=== PATIENT | male | born 1935 | race Caucasian/White ===

== ENCOUNTER 2023-02-10 08:42 | Outpatient (OUT) | payer OTHER, SELFPAY ==
--- NOTE | 2023-02-10 08:44 | XR_ITS ---
The [address] [address] Patient Name: TAMMI RICHMOND MRN: [id number] date: 1935 Sex: M Assigned Patient Location: LAB Current Patient Location: LAB Accession/Order Number: [id number] Exam Date: 02/10/2023 08:55 Report Date: 02/10/2023 09:52 At the request of: KIAN URBINA Procedure: XR abdomen 1V EXAM: XR abdomen 1V HISTORY: Kidney Stone N20.0 COMPARISON: None. TECHNIQUE: AP view of the abdomen. FINDINGS: Nonobstructive bowel gas pattern is noted. There are faint punctate calculi over the superior aspect of the left kidney. The osseous structures are intact. XR/XR abdomen 1V IMPRESSION: Nonobstructive bowel gas pattern. Probable left nephrolithiasis. Electronically authenticated by: QUETA DAMON Date: 02/10/2023 09:52
== END 2023-02-10 08:43 | disposition home or self-care (01) ==
LOC: LAB 08:42
PROVIDERS: PCP Internal Medicine; Visit Provider Urology
DX: N20.0 Calculus of kidney (principal)
CPT/HCPCS: 74018

== ENCOUNTER 2023-04-06 07:03 | Day surgery (SDC) | payer OTHER, SELFPAY ==
--- OUTSIDE RECORDS SUMMARY | 2023-04-06 07:06 | XMS_ITS | CCD ---
Author Name Unknown Address [address] [place] [address] Organization [facility] Care Team Providers Care [employer]el [employer] Name Role Phone DONOVAN CASTORENA Unavailable Unavailable NISREEN BEN Unavailable Unavailable Wilder Kya Unavailable Unavailable Unavailable Angel Cotton Unavailable Nabil Scott Unavailable Kaiser Jennings II Referring Unavailable Kaiser Jennings II Attending Unavailable Wilder Kay Primary Care Unavailabl e Wilder Kay Primary Care Unavailbernadine e Kaiser Jennings II Referring Unavailable Kaiser Jennings II Attending Unavailable Angel Cotton Attending Unavailable Angel Cotton Admitting Unavailable Wilder Kay Primary Care Unavailable Dixie Carroll Attending Unavailable Dixie Carroll Admitting Unavailable Wilder Kay Primary Care Unavailable Jose Barber Attending Unavailable Jose Barber Admitting Unavailable Sandor Leon Consulting Unavailable Wilder Kay Primary Care Unavailable Conor Baer Unavailable Wilder Kay Unavailable ASIA ESPINAL Consulting Unavailable FANY Hoang, DR CH Admitting Unavailable FANY ., DR CH Attending Unavailable CECY, DR WADDELL Primary Care Unavailable FANY ., DR CH Consulting Unavailable ENMA, DR HECK Admitting Unavailable CECY, DR WADDELL Primary Care Unavailable ENMA, DR HECK Attending Unavailable ENMA, DR HECK Consulting Unavailable CECY, DR WADDELL Admitting Unavailable CECY, DR WADDELL Attending Unavailable CECY, DR WADDELL Consulting Unavailable CECY, DR WADDELL Primary Care Unavailable CECY, DR WADDELL Admitting Unavailable CECY, DR WADDELL Attending Unavailable CECY, DR WADDELL Consulting Unavailable CECY, DR WADDELL Primary Care Unavailable VOLCANO, DR VANI Gabriel Consulting Unavailable CECY, DR WADDELL Primary Care Unavailable DANIA COMBS Admitting Unavailable DANIA COMBS Attending Unavailable DANIA COMBS Consulting Unavailable [facility], DR MORA Attending Unavailable [facility], DR MORA Consulting Unavailable MIS, DR MORA Admitting Unavailable DR WILDER KAY Primary Care Unavailable ASIA ESPINAL Consulting Unavailable ENMA, DR HECK Consulting Unavailable CECY, DR WADDELL Primary Care Unavailable ENMA, DR HECK Admitting Unavailable ENMA, DR HECK Attending Unavailable Wilder Kay DO Primary Care Provider WILDER KAY Primary Care Physician Jourdan ANDRES Attending Unavailable Jourdan ANDRES Attending Unavailable Medications Current Medications Medication Drug Class(es) Dates Sig (Normalized) Sig (Original) amLODIPine 5 mg oral tablet (5 sources) Dihydropyridine Calcium Channel Cyrus Start: 08-04-2022 take 1 tablet by mouth every twenty-four hours amLODIPine Besylate 5 MG 1 tablet Orally Once a day July, Active Ocuvite (1 source) Vitamin C Start: 01-31-2019 take 1 tablet by mouth once daily Ocuvite tab(s), Oral, Daily, Refill(s) 0 Start Date: 01/31/19 Status: Ordered aspirin 81 mg oral tablet (14 sources) Platelet Aggregation Inhibitor, Nonsteroidal Anti-inflammatory Drug Start: 11-17-2019 take 1 mg by mouth once daily aspirin 81 mg oral tablet mg tab(s), Oral, Daily, Refills(s) 0 Start Date: 11/17/19 Status: [facility] Aspirin Adult Low Dose 81 MG 1 tablet Orally Once a day Active calcium polycarbophil 625 mg oral tablet (3 sources) take 2 tablets by mo [facility] every twenty-four hours Fiber 625 MG 2 tablets as needed Orally ONCE A DAY Active End: 01-26-2023 CALCIUM POLYCARBOPHIL ORAL T zeynep by mouth. As diected 0 01/26/2023 Discontinued (Therapy completed) cephalexin 250 mg oral capsule (4 sources) Cephalosporin Antibacterial Start: 02-16-2023 End: 02-26-2023 take 1 capsule by mouth twice daily Keflex 250 mg Cap 250 mg = 1 cap(s), Oral, BID, X 10 day(s), # 20 cap(s), Refills(s) 0, Pharmacy: [id number], 177, cm, 02/16/23 10:45:00 EST, Height/Length Dosing, 85, kg, 02/16/23 10:45:00 EST, Weight Dosing Start Date: 02/16/23 Stop Date: 02/26/23 Status: Ordered Start: 08-14-2021 take 1 capsule by mo uth twice daily Cephalexin 500 MG Oral Capsule TAKE 1 CAPSULE BY MOUTH TWICE DAILY FOR 7 DAYS Quantity: 14 Refills: 0 Ordered: 14-Aug-2021 DO Start : 14-Aug-2021 Complete docusate sodium 100 mg oral capsule (10 sources) take 1 capsule by mouth every twelve hours Colace 100 MG 1 capsule as needed Orally TWICE A DAY Active ergocalciferol 1.25 mg oral capsule (20 sources) Provitamin D2 Compound Start: 01-16-20 ergocalciferol 50,000 intl units Cap 6 EA, TAKE 1 CAPSULE BY MOUTH EVERY 2 (TWO) weeks, Refills(s) 0 Start Date: 01/15/22 Status: Ordered Start: 02-14-2021 take 1 capsule by mo uth every week Vitamin D (Ergocalciferol) 1.25 MG (70155 UT) Oral Capsule TAKE 1 CAPSULE BY MOUTH EVERY week Quantity: 12 Refills: 0 Ordered: 30-Apr-2021 DO Start : 14-Feb-2021 Complete take 1 capsule by mo uth every other week Ergocalciferol 1.25 MG (94549 UT) 1 capsule Orally Q2 weeks for 90 days Active take 1 capsule by mo uth every week ergocalciferol (Vitamin D-2) 1.25 MG (39224 UT) capsule Take 1 capsule (1,250 mcg) by mouth 1 (one) time per week. 0 Active eye vitamin supplement (Ocuvite Eye Health Formula) capsule (1 source) eye vitamin supp lement (Ocuvite Eye Health Formula) capsule Take by mouth. As directed 0 Active Fiber (8 sources) take 2 tablets by mo uth once daily as needed take 2 tablets by mo uth once daily as needed Fiber 625 MG 2 tablets as needed Orally ONCE A DAY Active 24 hr metoprolol succinate 25 mg extended release oral tablet (5 sources) beta-Adrenergic Cyrus Start: 08-04-2022 take 1 tablet by mouth every twenty-four hours Metoprolol Succinate ER 25 MG 1 tablet Orally Once a day July, Active Vimodi Eye Health Formula - (10 sources) OcCNZZ Eye Health Formula - as directed Orally Active potassium citrate 10 meq extended release oral tablet (10 sources) Start: 04-17-2022 take 1 tablet by mouth every twelve hours Potassium Citrate ER 10 MEQ (1080 MG) 1 tablet with meals Orally Twice a day Apr, Active tamsulosin hydrochloride 0.4 mg oral capsule (19 sources) alpha-Adrenergic Cyrus Start: 05-11-2020 take 1 capsule by mouth once daily Flomax 0.4 mg Cap 0.4 mg = 1 cap(s), Oral, Daily, # 30 cap(s), Refills(s) 11, Pharmacy: [id number], 177, cm, 01/15/22 9:44:00 EDT, Height/Length Dosing, 85.7, kg, 01/15/22 9:44:00 EDT, Weight Dosing Start Date: 02/10/23 Status: Ordered Completed/Discontinued Medications Medication Drug Class(es) Dates Sig (Normalized) Sig (Original) atorvastatin 40 mg oral tablet (20 sources) HMG-CoA Reductase Inhibitor Start: 08-21-2020 take 1 tablet by mouth once daily atorvastatin (Lipitor) 20 mg tablet Take 1 tablet (20 mg) by mouth once daily. 0 08/21/2020 Active Start: 12-01-2019 take 1 tablet by jace once daily Atorvastatin Calcium 40 MG Oral Tablet TAKE 1 TABLET BY MOUTH DAILY Quantity: 30 Refills: 0 Ordered: 07-Jun-2021 DO Start : 09-Nov-2020 Complete take 2 tablets by mo [facility] every twenty-four hours Atorvastatin Calcium 40 MG 2 tablets Oral Once a day Active carbidopa 25 mg / levodopa 100 mg oral tablet (19 sources) Aromatic Amino Acid Decarboxylation Inhibitor, Aromatic Amino Acid Start: 04-10-2020 take 1 tablet by mouth four times daily Carbidopa-Levodopa 25-100 MG Oral Tablet TAKE 1 TABLET BY MOUTH FOUR TIMES DAILY Quantity: 360 Refills: 0 Ordered: 10-Apr-2020 DO Start : 10-Apr-2020 Active Start: 11-17-2019 take 1 tablet by jace four times daily Sinemet 10 mg-100 mg Tab tab(s), Oral, QID, Refill(s) 0 Start Date: 11/17/19 Status: Ordered take 1 tablet by jace four times daily Carbidopa-Levodopa 25-100 MG TAKE 1 TABLET BY MOUTH FOUR TIMES DAILY Oral for 90 Days Active ciprofloxacin 250 mg oral tablet (1 source) Quinolone Antimicrobial Start: 02-16-2023 take 1 tablet by mouth once daily Cipro 250 mg Tab 250 mg = 1 tab(s), Oral, Daily, Take 1 tablet the day before the procedure and 1 tablet after the procedure, # 2 tab(s), Refills(s) 0, Pharmacy: [id number], 177, cm, 02/16/23 10:45:00 EST, Height/Length Dosing, 85, kg, 02/16/23 10:45:00 EST, Weight Dosing Start Date: 02/16/23 Status: Ordered clopidogrel 75 mg oral tablet (2 sources) P2Y12 Platelet Inhibitor Start: 01-05-2020 take 1 tablet by mouth once daily Clopidogrel Bisulfate 75 MG Oral Tablet TAKE 1 TABLET BY MOUTH ONCE DAILY Quantity: 90 Refills: 0 Ordered: 06-May-2020 DO Start : 05-Jan-2020 Active Fiber Laxative TABS (2 sources) Fiber Laxative T ABS USE DIRECTED. Quantity: 0 Refills: 0 Ordered: 09-Apr-2021 DO Active hydroCHLOROthiazide 12.5 mg oral tablet (19 sources) Thiazide Diuretic Start: 04-02-2021 take 1 tablet by mouth once daily hydrochlorothiazide 12.5 mg Tab 90 EA, TAKE 1 TABLET BY MOUTH DAILY, Refills(s) 0 Start Date: 01/15/22 Status: Ordered mirtazapine 7.5 mg oral tablet (3 sources) Start: 08-01-2021 take 1 tablet by mouth once daily at bedtime Mirtazapine 7.5 MG Oral Tablet TAKE 1 TABLET BY MOUTH EVERY NIGHT AT BEDTIME Quantity: 30 Refills: 0 Ordered: 01-Aug-2021 DO Start : 01-Aug-2021 Complete Ocuvite Adult Formula CAPS (2 sources) Ocuvite Adult Fo rmula CAPS TAKE DIRECTED. Quantity: 0 Refills: 0 Ordered: 09-Apr-2021 DO Active polyethylene glycol 3350 256269 mg / potassium chloride 2980 mg / sodium bicarbonate 6720 mg / sodium chloride 5840 mg / sodium sulfate 69734 mg powder for oral solution (2 sources) Osmotic Laxative Start: 12-21-2021 GaviLyte-C 240 GM Oral Solution Reconstituted Quantity: 4000 Refills: 0 Ordered: 21-Dec-2021 DO Start : 21-Dec-2021 Complete potassium bicarbonate 25 meq effervescent oral tablet (9 sources) Start: 02-02-2023 take 1 tablet by mouth twice daily Klor-Con/EF 25 mEq oral tablet, effervescent 25 mEq = 1 tab(s), Oral, BID, # 60 tab(s), Refills(s) 11, Pharmacy: [id number], 177, cm, 01/15/22 9:44:00 EDT, Height/Length Dosing, 85.7, kg, 01/15/22 9:44:00 EDT, Weight Dosing Start Date: 02/02/23 Status: Ordered Start: 04-06-2021 End: 01-26-2023 potassium bicarbonate (Klor- Con/EF) 25 mEq effervescent tablet 1 tablet (25 mEq) twice a day. 0 04/06/2021 01/26/2023 Discontinued (Therapy completed) Problems Active Problems Problem Classification Problem Date Documented Date Episodic/Chronic Abdominal pain (1 source) Abdominal pain 11-17-2019 Episodic Acute cerebrovascular disease (4 sources) Cerebral infarction, unspecified; Translations: [CEREBRAL INFARCTION UNSPECIFIED] Onset: 3 Chronic Biliary tract disease (4 sources) Cholelithiasis without obstruction; Translations: [Calculus of gallbladder without cholecystitis without obstruction] Episodic Calculus of urinary tract (20 sources) Kidney stone; Translations: [Calculus of kidney] Onset: 2 Resolved: 2 Episodic Cardiac dysrhythmias (5 sources) Paroxysmal ventricular tachycardia; Translations: [Paroxysmal ventricular tachycardia] Onset: 2 01-26-2023 Chronic Cardiac dysrhythmias (8 sources) Palpitations; Translations: [Palpitations] Onset: 2 Episodic Chronic kidney disease (20 sources) Chronic kidney disease stage 3; Translations: [Chronic kidney disease, stage 3 (moderate)] Onset: 2 Chronic Coagulation and hemorrhagic disorders (20 sources) Thrombocytopenic disorder; Translations: [Thrombocytopenia, unspecified] Onset: 2 Resolved: 2 Chronic Congestive heart failure; nonhypertensive (10 sources) Chronic systolic heart failure; Translations: [Chronic systolic (congestive) heart failure] Chronic Deficiency and other anemia (15 sources) Anemia of renal disease; Translations: [Anemia in chronic kidney disease] Chronic Deficiency and other anemia (2 sources) Anemia in chronic kidney disease Onset: 2 Resolved: 2 Chronic Deficiency and other anemia (4 sources) Anemia; Translations: [Anemia, unspecified] Episodic Disorders of lipid metabolism (20 sources) Hyperlipidemia; Translations: [Other and unspecified hyperlipidemia] Onset: 2 Resolved: 2 Chronic Essential hypertension (20 sources) Essential hypertension; Translations: [Unspecified essential hypertension] Onset: 2 Chronic Genitourinary symptoms and ill-defined conditions (5 sources) Blood in urine; Translations: [Delay when starting to pass urine] 12-29-2019 Episodic Hyperplasia of prostate (6 sources) Benign prostatic hyperplasia with lower urinary tract symptoms; Translations: [Benign prostatic hyperplasia without lower urinary tract symptoms] Onset: 2 Chronic Hypertension with complications and secondary hypertension (20 sources) Chronic kidney disease due to hypertension; Translations: [Hypertensive chronic kidney disease with stage 1 through stage 4 chronic kidney disease, or unspecified chronic kidney disease] Onset: 2 Resolved: 2 Chronic Intestinal obstruction without hernia (4 sources) Intestinal obstruction; Translations: [Partial intestinal obstruction, unspecified as to cause] Episodic Malaise and fatigue (4 sources) Fatigue; Translations: [Other fatigue] Episodic Mood disorders (4 sources) Mild recurrent major depression; Translations: [Major depressive disorder, recurrent, mild] Chronic Nutritional deficiencies (20 sources) Vitamin D deficiency; Translations: [Vitamin D deficiency, unspecified] Onset: 2 Resolved: 2 Chronic Occlusion or stenosis of precerebral arteries (12 sources) Bilateral stenosis of carotid arteries; Translations: [Occlusion and stenosis of bilateral carotid arteries] Onset: 9 01-26-2023 Chronic Other aftercare (4 sources) Long-term current use of drug therapy; Translations: [Other 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) drug therapy] Episodic Other circulatory disease (4 sources) H/O: cardiovascular disease; Translations: [Personal history of other diseases of the circulatory system] Episodic Other circulatory disease (4 sources) History of cerebrovascular accident without residual deficits; Translations: [Personal history of transient ischemic attack (TIA), and cerebral infarction without residual deficits] Episodic Other ear and sense organ disorders (4 sources) Sensorineural hearing loss, bilateral; Translations: [Sensorineural hearing loss, bilateral] Chronic Other hereditary and degenerative nervous system conditions (4 sources) Mild cognitive disorder ; Translations: [Mild cognitive impairment, so stated] Chronic Other nervous system disorders (15 sources) Chronic pain; Translations: [Other chronic pain] Chronic Other non-traumatic joint disorders (15 sources) Hip pain; Translations: [Pain in left hip] Episodic Other nutritional; endocrine; and metabolic disorders (4 sources) Hypomagnesemia; Translations: [Hypomagnesemia] Chronic Other nutritional; endocrine; and metabolic disorders (2 sources) Overweight in adulthood with body mass index of 25 or more but less than 30; Translations: [Overweight] Episodic Other nutritional; endocrine; and metabolic disorders (4 sources) Hyperuricemia without signs of inflammatory arthritis and tophaceous disease; Translations: [Hyperuricemia without signs of inflammatory arthritis and tophaceous disease] Episodic Other screening for suspected conditions (not mental disorders or infectious disease) (3 sources) Electrocardiogram abnormal; Translations: [Nonspecific abnormal electrocardiogram [ECG] [EKG]] Onset: 3 01-23-2023 Episodic Parkinson`s disease (9 sources) Parkinsonism; 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 Screening and history of mental health and substance abuse codes (2 sources) Ex-smoker; Translations: [Personal history of tobacco use] Episodic Spondylosis; intervertebral disc disorders; other back problems (9 sources) Spondylosis without myelopathy or radiculopathy, lumbar region; Translations: [Cervical spondylosis without myelopathy] Onset: 2 Chronic Spondylosis; intervertebral disc disorders; other back problems (2 sources) Backache; Translations: [Low back pain] 12-01-2019 Episodic Transient cerebral ischemia (9 sources) Transient cerebral ischemia; Translations: [Unspecified transient cerebral ischemia] Onset: 3 01-26-2023 Chronic Unclassified (1 source) Unknown / UNK(Unknown) Onset: 8 Unclassified (1 source) S06.5X9A - Traumatic subdural hemorrhage with loss of consciousness of unspecified duration, initial encounter; Translations: [S06.5X9A - Traumatic subdural hemorrhage with loss of consciousness of unspecified duration, initial encounter] Onset: 2 Unclassified (1 source) R27.0 - Ataxia, unspecified; Translations: [R27.0 - Ataxia, unspecified] Onset: 2 Unclassified (1 source) TRAUM SUBDURAL HEMOR LOC UNKN INIT; Translations: [TRAUM SUBDURAL HEMOR LOC UNKN INIT] Onset: 3 Unclassified (4 sources) Other ventricular tachycardia; Translations: [Other ventricular tachycardia] Unclassified (4 sources) Traumatic subdural hemorrhage with loss of consciousness status unknown, initial encounter; Translations: [Traumatic subdural hemorrhage with loss of consciousness status unknown, initial encounter] Onset: 2 Urinary tract infections (4 sources) Urinary tract infection, site not specified; Translations: [Urinary tract infectious disease] Onset: 2 Episodic Past or Other Problems Problem Classification Problem Date Documented Da te Episodic/Chronic Chronic kidney disease (18 sources) Chronic kidney disease; Translations: [Chronic kidney disease, stage III (moderate)] Onset: 08-02-2021 Resolved: 2021 Deficiency and other anemia (4 sources) Anemia, unspecified; Translations: [ANEMIA UNSPECIFIED] Onset: 10-30-2021 Episodic Intracranial injury (1 source) Traumatic subdural hemorrhage with loss of consciousness of unspecified duration, initial encounter Onset: 07-29-2021 Resolved: 07-29-2021 Episodic Other aftercare (1 source) Other 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) drug therapy; Translations: [OTH WILDLIFE REHABILITATOR CURRENT DRUG THERAPY] Onset: 12-23-2021 Episodic Other aftercare (1 source) moth exterminator (current) use of aspirin; Translations: [MCFP CURRENT USE OF ASPIRIN] Onset: 12-23-2021 Episodic Other gastrointestinal disorders (4 sources) Constipation, unspecified; Translations: [CONSTIPATION UNSPECIFIED] Onset: 12-21-2021 Episodic Unclassified (1 source) Onset: 01-26-2023 01-26-2023 Results Test Name Value Interpretation Reference Range Facility Consent for Procedure/Surger yon 02-20-2023 Consent for Procedure/Surgery [id number] Normal [facility] RAD - MISCon 02-20-2023 [facility] [id number] Normal [facility] Ambulatory Visit Summaryon 1 04-19-2022 Ambulatory Visit Summary TAMMI PATEL :1935 Visit Date:02/16/2023 Ambulatory Visit Instructions Your Diagnosis Recurrent UTI BPH with urinary obstruction Kidney stone Tests Performed Urnls Dip Stick Auto w/o Microscopy POC 22056 Your Care Team Attending Physician - Jourdan ANDRES MD Primary Care Physician - WILDER KAY DO This Is Your Medications List cephalexin (Keflex 250 mg Cap) Contact prescribing physician if questions or concerns aspirin (aspirin 81 mg oral tablet) atorvastatin (atorvastatin 40 mg Tab) carbidopa-levodopa (Sinemet 10 mg-100 mg Tab) ergocalciferol (ergocalciferol 50,000 intl units Cap) hydrochlorothiazide (hydrochlorothiazide 12.5 mg Tab) multivitamin with minerals (Ocuvite) potassium bicarbonate (Klor-Con/EF 25 mEq oral tablet, effervescent) tamsulosin (Flomax 0.4 mg Cap) Procedures Performed ESWL of kidney (02/08/2020), ESWL - Extracorporeal shockwave lithotripsy for renal calculus (12/14/2019), Cystoscopy (11/18/2019), Cystoscope (09/01/2016), Lt. ESWL (01/22/2012), Cystoscopic removal of ureteric stent (10/07/2011), Rt. ESWL (09/11/2011), Appendectomy, Cataract, Cranial, Excision of cataract, Hernia Repair, Knee replacement. Discharge Vitals Heart Rate (Peripheral) 62 Respiratory Rate 16 Blood Pressure 105/60 Height 177 cm Height 70 in Weight 85 kg Weight 187 lb BMI 27.13 What to do next You Need to Schedule the Following Appointments Follow Up with CIARA SALAAZR, BARBIE Burns When: Where: [facility] [address] , [place] [address] [phone] Medications What How Much When Instructions New cephalexin (Keflex 250 mg Cap) 1 Capsules By Mouth 2 times a day Duration: 10 Days Pickup at [facility] Unchanged aspirin (aspirin 81 mg oral tablet) By Mouth Every day Contact prescribing physician if questions or concerns Unchanged atorvastatin (atorvastatin 40 mg Tab) Contact prescribing physician if questions or concerns Unchanged carbidopa-levodopa (Sinemet 10 mg-100 mg Tab) By Mouth 4 times a day Contact prescribing physician if questions or concerns Unchanged ergocalciferol (ergocalciferol 50,000 intl units Cap) 6 EA, TAKE 1 CAPSULE BY MOUTH EVERY 2 (TWO) weeks Contact prescribing physician if questions or concerns Unchanged hydrochlorothiazide (hydrochlorothiazide 12.5 mg Tab) 90 EA, TAKE 1 TABLET BY MOUTH DAILY Contact prescribing physician if questions or concerns Unchanged multivitamin with minerals (Ocuvite) By Mouth Every day Contact prescribing physician if questions or concerns Unchanged potassium bicarbonate (Klor-Con/ EF 25 mEq oral tablet, effervescent) 1 Tablets By Mouth 2 times a day Contact prescribing physician if questions or concerns Unchanged tamsulosin (Flomax 0.4 mg Cap) 1 Capsules By Mouth Every day Contact prescribing physician if questions or concerns Pharmacy Information [facility]: [address] [place], [place] [id number] [phone] Test Results Urnls Dip Stick Auto w/o Microscopy POC 32120 (02/16/2023) Bilirubin Urine Dipstick - Negative Blood Urine Dipstick - Trace-lysed Glucose Urine Dipstick - Negative Ketones Urine Dipstick - Trace - 5 mg/dl Leukocytes Urine Dipstick - 1+ Small Nitrite Urine Dipstick - Positive Protein Urine Dipstick - 1+ (30 mg/dl) Specific [place] Urine Dipstick - 1.025 Urine Appearance Urine Dipstick - Cloudy Urine Color Urine Dipstick - Yellow Urobilinogen Urine Dipstick - Normal 0.2-1 EU/dl pH Urine Dipstick - 6 Allergies No Known Allergies Problems Ongoing - Any problem that you are currently receiving treatment for. Abdominal pain Back pain BPH with urinary obstruction Gross hematuria Hematuria Hesitancy of micturition Hypertension Kidney stone Low back pain Nocturia Recurrent UTI Transient ischemic attack Urgency of urination UTI (urinary tract infection) Patient Survey You may receive a survey via text or e-mail asking about your office visit. Please share your experience with us by completing your survey. We appreciate your feedback and thank you for choosing us for your care. Education Materials Cystoscopy Cystoscopy is a procedure that is used to help diagnose and sometimes treat conditions that affect the lower urinary tract. The lower urinary tract includes the bladder and the urethra. The urethra is the tube that drains urine from the bladder. Cystoscopy is done using a thin, tube-shaped instrument with a light and camera at the end (cystoscope). The cystoscope may be hard or flexible, depending on the goal of the procedure. The cystoscope is inserted through the urethra, into the bladder. Cystoscopy may be recommended if you have: ? Urinary tract infections that keep coming back. ? Blood in the urine (hematuria). ? An inability to control when you urinate (urinary incontinence) or an overactive bladder. ? Unusual cells found in a uri (more content not included)... 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 KUB 02/10/23 Denies pain/burning and visible blood in urine. Does have some intermittent lower back soreness, does not think it is related to kidneys. No concerns at this time. History of Present Illness Tests reviewed: reviewed UA, KUB I have reviewed the previous health record information and history for this patient from JOLLY Valdovinos. I have reviewed and verified the staff HPI to be accurate for this encounter. Review of Systems PHQ Score Initial Depression Screen Score: 0 SCORE ROS - Provider Constitutional: denies weight loss, denies hot flashes. Eyes: denies eye problems. Gastrointestinal: denies nausea, denies vomiting. Cardiovascular: denies chest pain or angina. Integumentary: no dryness Musculoskeletal: denies musculoskeletal symptoms. ENMT: denies otolaryngeal symptoms. Respiratory: no shortness of breath. Heme/Lymph: denies easy bleeding tendency, denies easy bruising tendency. Psychiatric: no confusion, no anxiety. Genitourinary: See HPI. Physical Exam Vitals & Measurements HR: 62(Peripheral) RR: 16 BP: 105/60 HT: 70 in HT: 177 cm WT: 85 kg WT: 187 lb BMI: 27.13 General Appearance: alert, no distress, well nourished, well developed male. Genitourinary: normal scrotum, normal testes, normal urethra, normal epididymis, normal vas deferens/spermatic cord. Flank Pain: none. Bladder: nonpalpable. Assessment/Plan Former Dr. Horowitz pt 1. Recurrent UTI (N39.0: Urinary tract infection, site not specified) UA at prior OV showed large leuks. Had positive cx which was treated with doxycycline 100mg bid x7d. UA today shows trace-lysed blood and small leuks. Denies gross hematuria and odorous urine. Discussed possibility of urinary retention as pt is asx and has a suspicious UA today. Advised pt to take abx empirically and will evaluate etiology of infection with cysto and pvr scan. -Take Keflex 250mg bid [id number]. Rx sent to in [place]. -Will schedule cystoscopy with PVR. The risks and benefits for cystoscopy have been discussed. The risks include bleeding, infection, and irritation of the bladder and urinary channel, among others. The patient, after being informed of procedural details and after questions have been answered, wishes to proceed. Full informed consent has been obtained. Will order Local anesthesia. 2. BPH with urinary obstruction (N40.1: Benign prostatic hyperplasia with lower urinary tract symptoms) S/p Cysto/UroLift 10/21/16. Taking Tamsulosin 0.4mg bid which was increased at prior OV. weak stream. Feels he empties completely. No indication for changes in meds. 3. Kidney stone (N20.0: Calculus of kidney) Hx of multiple lithotripsies. Taking Effer K 25meq bid. KUB 01/10/22 [facility] - L renal stones, no measurements. KUB 02/10/23 [facility] - faint punctate renal stones over the L superior aspect. Discussed imaging results. No indication for intervention at this time. Follow-up With When Contact Information CIARA SALAZAR, Jourdan Anderson, [facility] [address], [place] [address]- [phone] Additional Instructions: sched cysto Patient Education Cystoscopy I, Kaycee Fabian, personally scribed for Dr. Andres on 02/16/2023 11:19:48. . Documentation recorded by the violeta, Kaycee Fabian, accurately reflects the services(s) I performed and decisions made by me. Authenticated by Dr. Andres on 02/16/2023 11:23:26. Problem List/Past Medical History Ongoing Abdominal pain Back pain BPH with urinary obstruction Gross hematuria Hematuria Hesitancy of micturition Hypertension Kidney stone Low back pain Nocturia Recurrent UTI Transient ischemic attack Urgency of urination UTI (urinary tract infection) Historical No qualifying data Procedure/Surgical History ESWL of kidney (02/08/2020), ESWL - Extracorporeal shockwave lithotripsy for renal calculus (12/14/2019), Cystoscopy (11/18/2019), Cystoscope (09/01/2016), Lt. ESWL (01/22/2012), Cystoscopic removal of ureteric stent (10/07/2011), Rt. ESWL (09/11/2011), Appendectomy, Cataract, Cranial, Excision of cataract, Hernia Repair, Knee replacement. Medications aspirin 81 mg oral tablet, Oral, Daily atorvastatin 40 mg Tab ergocalciferol 50,000 intl units Cap Flomax 0.4 mg Cap, 0.4 mg= 1 cap(s), Oral, Daily, 11 refills hydrochlorothiazide 12.5 mg Tab Klor-Con/EF 25 mEq oral tablet, effervescent, 25 mEq= 1 tab(s), Oral, BID, 11 refills Ocuvite, Oral, Daily Sinemet 10 mg-100 mg Tab, Oral, QID Allergies No Known Allergies Social History Alcohol - Denies Alcohol Use, 12/29/2019 Substance Abuse - Denies Substance Abuse, 12/29/2019 Tobacco - Denies Tobacco Use, 12/29/2019 Former smoker, quit more than 30 days ago Tobacco Use:. Never Smokeless Tobacco Use:. Cigarettes, H (more content not included)... Normal [facility] Comment on above: Result Comment: Elec tronically Signed By: Jourdan ANDRES MD\.br\Date and Time Signed: 02/16/23 11:23 EST\.br\Electronically Co-Signed By: Fabian, Kaycee B\.br\Date and Time Co-Signed: 02/16/23 11:20 EST Physician Orderon 01-13-2023 Physician Order [id number] Normal [facility] LIPID PROFILEon 07-16-2022 CHOL-HDL RATIO NORM SEE BELOW Normal [facility] Comment on above: Result Comment: 3.3 - 4.4 LOW RISK 4.4 - 7.1 AVERAGE RISK 7.1 - 11.0 MODERATE RISK >11.0 HIGH RISK Performed By: #### L IPID, AST, BMP #### [facility] [address] [address] [address] Anu Magdaleno Cholesterol [Mass/Vol] 105 mg/dL Normal <=200 [facility] Comment on above: Performed By: #### L IPID, AST, BMP #### [facility] [address] [address] [address] Anu Magdaleno Cholesterol in HDL [Mass/Vol] 47 mg/dL Normal 40-60 [facility] Comment on above: Performed By: #### L IPID, AST, BMP #### [facility] [address] [address] [address] Anu Magdaleno Cholesterol in LDL [Mass/Vol] 46.2 mg/dL Normal [facility] Comment on above: Performed By: #### L IPID, AST, BMP #### [facility] [address] [address] [address] Anu Magdaleno Cholesterol.total/ Cholesterol in HDL [Mass ratio] 2.2 {ratio} Normal [facility] Comment on above: Performed By: #### L IPID, AST, BMP #### [facility] [address] [address] [address] Anu Magdaleno HDL NORMAL > or = 60 mg/dl - LO W CARDIOVASCULAR RISK <40 mg/dl - HIGH CARDIOVASCULAR RISK Normal [facility] Comment on above: Performed By: #### L IPID, AST, BMP #### [facility] [address] [address] [address] Anu Magdaleno LDL CALC NORMAL SEE BELOW Normal [facility] Comment on above: Result Comment: <100 mg/dl OPTIMAL 100 - 129 mg/dl NEAR OR ABOVE OPTIMAL 130 - 159 mg/dl BORDERLINE HIGH 160 - 189 mg/dl HIGH >190 mg/dl VERY HIGH Performed By: #### L IPID, AST, BMP #### [facility] [address] [address] [address] Anu Magdaleno Triglyceride [Mass/Vol] 59 mg/dL Normal <=150 [facility] Comment on above: Performed By: #### L IPID, AST, BMP #### [facility] [address] [address] [address] Anu Magdaleno VLDL CALC 11.8 mg/dL Normal [facility] Comment on above: Performed By: #### L IPID, AST, BMP #### [facility] [address] [address] [address] Anu Magdaleno PROF CHEM 8 (BAS METB)on Anion gap [Moles/Vol] 13.1 mmol/L Normal [facility] Comment on above: Performed By: #### F ERR, FETIBC, VITB12 #### [facility] [address] [address] [address] Anu Magdaleno Calcium [Mass/Vol] 9.2 mg/dL Normal 8.5-10.1 [facility] Comment on above: Performed By: #### F ERR, FETIBC, VITB12 #### [facility] [address] [address] [address] Anu Magdaleno Chloride [Moles/Vol] 102 mmol/L Normal 98-107 [facility] Comment on above: Performed By: #### F ERR, FETIBC, VITB12 #### [facility] [address] [address] [address] Anu Magdaleno CO2 [Moles/Vol] 28.3 mmol/L Normal 21.0-32.0 [facility] Comment on above: Performed By: #### F ERR, FETIBC, VITB12 #### [facility] [address] [address] [address] Anu Magdaleno Creatinine [Mass/Vol] 1.40 mg/dL Critically high 0.70-1.30 [facility] Comment on above: Performed By: #### F ERR, FETIBC, VITB12 #### [facility] [address] [place] [address] Dr. Anu Magdaleno EGFR-AF BRAZILIAN 58 mL/min/1.73m2 Critically low >=60 [facility] Comment on above: Performed By: #### F ERR, FETIBC, VITB12 #### [facility] [address] [place] [address] Dr. Anu Magdaleno EGFR-NON AF BRAZILIAN 48 mL/min/1.73m2 Critically low >=60 [facility] Comment on above: Performed By: #### F ERR, FETIBC, VITB12 #### [facility] [address] [place] [address] Dr. Anu Magdaleno Glucose [Mass/Vol] 124 mg/dL Critically high 74-106 T [facility] Comment on above: Performed By: #### F ERR, FETIBC, VITB12 #### [facility] [address] [place] [address] Dr. Anu Magdaleno Potassium [Moles/Vol] 4.4 mmol/L Normal 3.5-5.1 [facility] Comment on above: Performed By: #### F ERR, FETIBC, VITB12 #### [facility] [address] [place] [address] Dr. Anu Magdaleno Sodium [Moles/Vol] 139 mmol/L Normal 136-145 [facility] Comment on above: Performed By: #### F ERR, FETIBC, VITB12 #### [facility] [address] [place] [address] Dr. Anu Magdaleno Urea nitrogen [Mass/Vol] 20.0 mg/dL Critically high 7.0-18.0 [facility] Comment on above: Performed By: #### F ERR, FETIBC, VITB12 #### [facility] [address] [place] [address] Dr. Anu Magdaleno Urea nitrogen/Creatinin e [Mass ratio] 14.3 mg/mg Normal [facility] Comment on above: Performed By: #### F ERR, FETIBC, VITB12 #### [facility] [address] [place], [place] [address] Dr. Anu Huerta 07-16-2022 AST [Catalytic activity/Vol] 16 U/L Normal 15-37 [facility] Comment on above: Performed By: #### L IPID, AST, BMP #### [facility] [address] [place], [place] [address] HEAD WO CONon 03-26-2022 CT HEAD WO CON EXAMINATION: CT HEAD WO CON HISTORY: Cerebral infarction ; history of subdural hematoma July 2021 COMPARISON: CT head 08/10/2009 TECHNIQUE: Axial CT images were obtained without IV contrast. Dose reduction techniques were achieved by using automated exposure control and/or adjustment of mA and/or kV according to patient size and/or use of iterative reconstruction technique. FINDINGS: BRAIN: Small area of decreased attenuation within the posterior superior aspect of the right parietal lobe, likely sequela of remote infarction. Uniform parenchymal atrophy. Decreased attenuation involving the periventricular deep white matter bilaterally favoring chronic small vessel ischemic changes. No edema, hemorrhage, mass, acute infarction, or inappropriate atrophy. CSF SPACES: No hydrocephalus, subarachnoid hemorrhage, or mass. Appropriate for age. SKULL: 2 separate artur holes within left parietal bone. SINUSES: Stable, chronic, dense calcification within left frontal sinus. No significant mucosal thickening or fluid on the limited views. ORBITS: No appreciable abnormality on the limited views. OTHER: Negative IMPRESSION: 1. No acute intracranial hemorrhage or evidence of remote intracranial hemorrhage. 2. Small area of encephalomalacic changes within posterior superior right parietal lobe; likely sequela of remote small ischemic infarction. 3. Age consistent atrophy and chronic small vessel ischemic changes. 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) Former smoker (V15.82) (Z87.891) Overweight with body mass index (BMI) of 27 to 27.9 in adult (278.02,V85.23) (E66.3,Z68.27) Orders Essential hypertension, Hyperlipidemia AST; Status:Active; Requested for:14Jul2022; Basic Metabolic Panel; Status:Active; Requested for:14Jul2022; Lipid Panel; Status:Active; Requested for:14Jul2022; Overweight with body mass index (BMI) of 27 to 27.9 in adult Healthy Weight Tips; Status:Complete; Done: 15Jan2022 Some eating tips that can help you lose weight.; Status:Complete; Done: 15Jan2022 SocHx: Former smoker Tobacco Use Screening; Status:Complete; Done: 15Jan2022 TIA (transient ischemic attack) Renew: Aspirin EC 81 MG Oral Tablet Delayed Release; TAKE 1 TABLET DAILY Patient Instructions Please bring all medicines, vitamins, and herbal supplements with you when you come to the office. Prescriptions will not be filled unless you are compliant with your follow up appointments or have a follow up appointment scheduled as per instruction of your physician. Refills should be requested at the time of your visit. Fall Prevention education given Follow up in 1 year. Chief Complaint TAMMI PATEL is being seen for a 9 month follow-up of. History of Present Illness Patient returns for follow-up of problems as noted. From a cardiac standpoint he is doing well. Recently had a fall off a ladder and he had a head injury with subdural hematoma necessitating bur holes. He had been on Plavix prescribed by neurology for previous history of TIA and because of this event it was stopped and I concur. In regards to other cardiac problems he has no manifestations of ventricular arrhythmia and both his essential hypertension and hyperlipidemia are well controlled. He no longer has the complaints of palpitation either. He is congratulated on his continued tobacco abstinence and we discussed the merits of a modest diet and weight loss. Current Meds Medication NameInstruction Aspirin EC 81 MG Oral Tablet Delayed ReleaseTAKE 1 TABLET DAILY. Atorvastatin Calcium 20 MG Oral TabletTAKE 1 TABLET BY MOUTH DAILY Carbidopa-Levodopa 25-100 MG Oral TabletTAKE 1 TABLET BY MOUTH FOUR TIMES DAILY Fiber Laxative TABSUSE DIRECTED. hydroCHLOROthiazide 12.5 MG Oral TabletTAKE 1 TABLET BY MOUTH DAILY Klor-Con/EF 25 MEQ Oral Tablet EffervescentDISSOLVE 1 TABLET IN 6 TO 8 OUNCES OF WATER AND DRINK TWICE DAILY. Ocuvite Adult Formula CAPSTAKE DIRECTED. Tamsulosin HCl - 0.4 MG Oral CapsuleTAKE 1 CAPSULE BY MOUTH ONCE DAILY Allergies Medication No Known Drug Allergies Recorded By: Anastasia Delatorre; 01/22/2021 4:39:05 PM Social History Problems Alcohol use (V49.89) (Z78.9) Twice a week Caffeine use (V49.89) (Z78.9) 1 cup of coffee a day Former smoker (V15.82) (Z87.891) No illicit drug use Review of Systems Constitutional: not feeling tired. Eyes: no eyesight problems. ENT: no hearing loss and no nosebleeds. Cardiovascular: no intermittent leg claudication and as noted in HPI. Respiratory: no chronic cough and no shortness of breath. Gastrointestinal: no change in bowel habits and no blood in stools. Genitourinary: no urinary frequency and no hematuria. Skin: no skin rashes. Neurological: no seizures and no frequent falls. Psychiatric: no depression and not suicidal. All other systems have been reviewed and are negative for complaint. Vitals Vital Signs Recorded: 15Jan2022 03:30PM Heart Rate68, L Radial Hzxkwkaz059, RUE, Sitting Aktbfnmup15, RUE, Sitting Height5 ft 10 in Cyfdoh049 lb BMI Wcqjzhncsw95.26 kg/m2 BSA Calculated2.04 Tobacco Useb) No PHQ-2 #1. Over the last 2 weeks have you felt down, depressed or hopeless? (If yes, answer PHQ-9 below)No PHQ-2 #2. Over the last 2 weeks have you felt little interest or pleasure in doing things? (If yes, answer PHQ-9 below)No Falls Screening (Age 18+)b) One or more falls in the last year Physical Exam Constitutional: alert and in no acute distress. Eyes: no erythema, swelling or discharge from the eye . Neck: neck is supple, symmetric, trachea midline, no masses and no thyromegaly . Pulmonary: no increased work of breathing or signs of respiratory distress and lungs clear to auscultation. Cardiovascular: carotid pulses 2+ bilaterally with no bruit , JVP was normal, no thrills , regular rhythm, normal S1 and S2, no murmurs , pedal pulses 2+ bilaterally and no edema . Abdomen: abdomen non-tender, no masses and no hepatomegaly . Skin: skin warm and dry, normal skin turgor . Psychiatric judgment and insight is normal and oriented to person, place and time . Signatures Electronically signed by : Kaiser Jennings MD; Jan 15 2022 5:34PM EST ( (more content not included)... Normal [facility] Tobacco Screening.on 022 Adult depression screening assessment [facility] [employer] [facility] Work Phone: Fall risk assessment b) One or more falls in the last year [facility] [employer] DO Work Phone: Tobacco use status [facility] b) No [facility] [employer] DO Work Phone: XR KUB 1 VIEWon 01-10-2022 XR KUB 1 VIEW EXAMINATION: XR KUB 1 VIEW HISTORY: Lower urinary tract symptoms due to benign prostatic hypertrophy COMPARISON: No relevant comparison available. FINDINGS: KIDNEY/URETER - RIGHT: No visible renal or ureteral calcifications. KIDNEY/URETER - LEFT: Nephrolithiasis PELVIS: No visible ureteral calcifications. Any visible calcifications favor phleboliths. BOWEL: No abnormal dilation or deviation. BONES: Severe degenerative changes of the spine with suspected wedge compression fractures OTHER: Negative. No abnormal gaseous collections. IMPRESSION: Left nephrolithiasis Electronically authenticated by: VANI RIDLEY Date: 2022-01-10 17:59 Normal [facility] XR KUB_DECUB or ERECTon 10-0 XR KUB_DECUB or ERECT EXAMINATION: XR KUB_DECUB or ERECT HISTORY: Constipation COMPARISON: XR KUB 01/18/2021 FINDINGS: BOWEL GAS PATTERN: No abnormal dilation or deviation. Moderate amount of stool throughout the colon. CALCIFICATIONS: None significant. OTHER: Right upper quadrant surgical clips and lower pelvis surgical clips. Levocurvature of lumbar spine. IMPRESSION: 1. Moderate stool burden. No bowel obstruction. Electronically authenticated by: ASIA ESPINAL Date: 2021-12-21 11:40 Normal [facility] CBC AUTO DIFFon 10-30-2021 BASO # 0.0 103/ul Normal 0.0-0.1 [facility] Comment on above: Performed By: #### C BC #### [facility] [address] [place] [address] Dr. Anu Magdaleno Basophils/100 WBC (Bld) 0.7 % Normal 0.2-2.0 [facility] Comment on above: Performed By: #### C BC #### [facility] [address] [place] [address] Dr. Anu Magdaleno EO # 0.5 103/ul Normal 0.0-0.7 [facility] Comment on above: Performed By: #### C BC #### [facility] [address] [place] [address] Dr. Anu Magdaleno Eosinophils/100 WBC (Bld) 7.7 % Critically high 0.9-7.0 [facility] Comment on above: Performed By: #### C BC #### [facility] [address] [place] [address] Dr. Anu Magdaleno Erythrocyte distribution width (RBC) [Ratio] 13.7 % Normal 11.0-15.0 [facility] Comment on above: Performed By: #### C BC #### [facility] [address] [place] [address] Dr. Anu Magdaleno Hematocrit (Bld) [Volume fraction] 39.5 % Critically low 42.0-54.0 [facility] Comment on above: Performed By: #### C BC #### [facility] [address] [place] [address] Dr. Anu Magdaleno Hemoglobin (Bld) [Mass/Vol] 13.3 g/dL Critically low 14.0-18.0 [facility] Comment on above: Performed By: #### C BC #### [facility] [address] [place] [address] Dr. Anu Magdaleno IG # 0.02 10e3/ul Normal 0.00-0.03 [facility] Comment on above: Performed By: #### C BC #### [facility] [address] [place] [address] Dr. Anu Magdaleno IG % 0.3 % Normal 0.0-0.5 [facility] Comment on above: Performed By: #### C BC #### [facility] [address] [place] [address] Dr. Anu Magdaleno LYMPH # 1.1 103/ul Critically low 1.2-3.8 [facility] Comment on above: Performed By: #### C BC #### [facility] [address] [place] [address] Dr. Anu Magdaleno Lymphocytes/100 WBC (Bld) 18.4 % Critically low 20.5-60.0 [facility] Comment on above: Performed By: #### C BC #### [facility] [address] [place] [address] Dr. Anu Magdaleno MANUAL DIFF REQ NO Normal [facility] Comment on above: Performed By: #### C BC #### [facility] [address] [place] [address] Dr. nAu Magdaleno MCH (RBC) [Entitic mass] 30.0 pg Normal 25.9-34.0 [facility] Comment on above: Performed By: #### C BC #### [facility] [address] [place] [address] Dr. Anu Magdaleno MCHC (RBC) [Mass/Vol] 33.7 g/dL Normal 29.9-35.2 [facility] Comment on above: Performed By: #### C BC #### [facility] [address] [place] [address] Dr. Anu Magdaleno MCV (RBC) [Entitic vol] 89.2 fL Normal 80.0-94.0 [facility] Comment on above: Performed By: #### C BC #### [facility] [address] [place] [address] Dr. Anu Magdaleno MONO # 0.4 103/ul Normal 0.3-0.8 [facility] Comment on above: Performed By: #### C BC #### [facility] [address] [place] [address] Dr. Anu Magdaleno Monocytes/100 WBC (Bld) 7.4 % Normal 1.7-12.0 [facility] Comment on above: Performed By: #### C BC #### [facility] [address] [address] [address] Anu Magdaleno NEUT # 3.9 103/ul Normal 1.4-6.5 [facility] Comment on above: Performed By: #### C BC #### [facility] [address] [address] [address] Anu Magdaleno Neutrophils/100 WBC (Bld) 65.5 % Normal 43.0-75.0 [facility] Comment on above: Performed By: #### C BC #### [facility] [address] [address] [address] Anu Magdaleno Platelet mean volume (Bld) [Entitic vol] 9.5 fL Normal 9.5-13.5 [facility] Comment on above: Performed By: #### C BC #### [facility] [address] [place] [address] Dr. Anu Magdaleno PLT 121 103/ul Critically low 150-450 [facility] Comment on above: Performed By: #### C BC #### [facility] [address] [place] [address] Dr. Anu Magdaleno RBC 4.43 106/ul Critically low 4.70-6.10 [facility] Comment on above: Performed By: #### C BC #### [facility] [address] [place] [address] Dr. Anu Magdaleno WBC 6.0 103/ul Normal 4.0-11.0 [facility] Comment on above: Performed By: #### C BC #### [facility] [address] [address] [address] Anu Magdaleno FERRITINon 10-30-2021 Ferritin [Mass/Vol] 137.0 ng/mL Normal 26.0-388.0 [facility] Comment on above: Performed By: #### F ERR, FETIBC, VITB12 #### [facility] [address] [address] [address] Anu Magdaleno IRON AND TIBCon 10-30-2021 % SATURATION 21.8 % Normal [facility] Comment on above: Performed By: #### F ERR, FETIBC, VITB12 #### [facility] [address] [address] [address] Anu Magdaleno Iron [Mass/Vol] 67.0 ug/dL Normal 65.0-175.0 [facility] Comment on above: Performed By: #### F ERR, FETIBC, VITB12 #### [facility] [address] [place] [address] Dr. Anu Magdaleno TIBC DIRECT 307.0 ug/dL Normal 250.0-450. 0 [facility] Comment on above: Performed By: #### F ERR, FETIBC, VITB12 #### [facility] [address] [place] [address] Dr. Anu Magdaleno VITAMIN B12on 10-30-2021 Cobalamin (Vitamin B12) [Mass/Vol] 385.0 pg/mL Normal 193.0-986. 0 [facility] Comment on above: Performed By: #### F ERR, FETIBC, VITB12 #### [facility] [address] [place] [address] head/brain wo conon 08-26 CT head/brain wo con [facility] [place] [address] CT Scan Report Signed Patient: Tammi Patel MR#: [id number] : 1935 Acct:[id number] Age/Sex: 85 / M ADM Date: 08/26/21 Loc: CT Room: Type: [facility] Attending Dr: Angel Cotton MD Ordering Provider: Angel Cotton MD Date of Service: 08/26/21 CT/CT head/brain wo con: [id number] Copies to: Angel Cotton MD CT head/brain wo con 08/26/2021 8:23 AM SIGNS AND SYMPTOMS: Follow-up bleed, status post craniotomy. TECHNIQUE:Multi-detector CT axial slices of the brain were obtained without IV contrast. CT was performed with one or more of the following dose reduction techniques: Automated exposure control, adjustment of the mA and/or kV according to patient size, or use of iterative reconstruction technique. COMPARISON: 07/16/2021 FINDINGS: There is no shift of the midline structures or evidence of acute ischemia.. There is a subdural collection over the left cerebral hemisphere which is more chronic in appearance and decreasing in size measuring 8 mm in greatest thickness. There is interval resolution of mass effect on the left cerebral hemisphere. There is interval resolution of midline shift. Atherosclerotic changes are noted in the intracranial segments of the internal carotid arteries. There is diffuse age-related cortical atrophy with periventricular white matter hypoattenuation. There is a remote infarct in the right parietal lobe. The ventricular system is normal in size. The brainstem and the cerebellum are unremarkable. The visualized intraorbital contents, the visualized paranasal sinuses, and the infratemporal soft tissues show no acute abnormality. There are holes are noted in the left frontal and parietal bones. 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 Interval resolution of mass effect on the left cerebral hemisphere and interval resolution of midline shift. Additional chronic findings are redemonstrated, as above. Impression dictated by: Jericho Esparza M.D.08/26/2021 10:23 AM Dictation Location: [place] [address] Transcribed By: [facility] 08/26/21 1023 Dictated By: Jericho Esparza II, MD 08/26/21 1019 Signed By: 08/26/21 1023 [facility] [place] CBC AUTO DIFFon 08-01-2021 BASO # 0.1 103/ul Normal 0.0-0.1 [facility] Comment on above: Performed By: #### C BC #### [facility] [address] [place], [place] [address] Dr. Anu Magdaleno Basophils/100 WBC (Bld) 0.7 % Normal 0.2-2.0 [facility] Comment on above: Performed By: #### C BC #### [facility] [address] [place], [place] [address] Dr. Anu Magdaleno EO # 0.3 103/ul Normal 0.0-0.7 [facility] Comment on above: Performed By: #### C BC #### [facility] [address] [place] [address] [address] Anu Magdaleno Eosinophils/100 WBC (Bld) 3.4 % Normal 0.9-7.0 [facility] Comment on above: Performed By: #### C BC #### [facility] [address] [place] [address] Dr. Anu Magdaleno Erythrocyte distribution width (RBC) [Ratio] 13.5 % Normal 11.0-15.0 [facility] Comment on above: Performed By: #### C BC #### [facility] [address] [place] [address] Dr. Anu Magdaleno Hematocrit (Bld) [Volume fraction] 40.7 % Critically low 42.0-54.0 [facility] Comment on above: Performed By: #### C BC #### [facility] [address] [place] [address] Dr. Anu Magdaleno Hemoglobin (Bld) [Mass/Vol] 13.1 g/dL Critically low 14.0-18.0 [facility] Comment on above: Performed By: #### C BC #### [facility] [address] [place] [address] Dr. Anu Magdaleno IG # 0.05 10e3/ul Critically high 0.00-0.03 [facility] Comment on above: Performed By: #### C BC #### [facility] [address] [place] [address] Dr. Anu Magdaleno IG % 0.6 % Critically high 0.0-0.5 [facility] Comment on above: Performed By: #### C BC #### [facility] [address] [place] [address] Dr. Anu Magdaleno LYMPH # 0.8 103/ul Critically low 1.2-3.8 [facility] Comment on above: Performed By: #### C BC #### [facility] [address] [place] [address] Dr. Anu Magdaleno Lymphocytes/100 WBC (Bld) 9.6 % Critically low 20.5-60.0 [facility] Comment on above: Performed By: #### C BC #### [facility] [address] [place] [address] Dr. Anu Magdaleno MANUAL DIFF REQ NO Normal [facility] Comment on above: Performed By: #### C BC #### [facility] [address] [place] [address] Dr. Anu Magdaleno MCH (RBC) [Entitic mass] 29.0 pg Normal 25.9-34.0 [facility] Comment on above: Performed By: #### C BC #### [facility] [address] [place] [address] Dr. Anu Magdaleno MCHC (RBC) [Mass/Vol] 32.2 g/dL Normal 29.9-35.2 [facility] Comment on above: Performed By: #### C BC #### [facility] [address] [place] [address] Dr. Anu Magdaleno MCV (RBC) [Entitic vol] 90.0 fL Normal 80.0-94.0 [facility] Comment on above: Performed By: #### C BC #### [facility] [address] [place] [address] Dr. Anu Magdaleno MONO # 0.5 103/ul Normal 0.3-0.8 [facility] Comment on above: Performed By: #### C BC #### [facility] [address] [place] [address] Dr. Anu Magdaleno Monocytes/100 WBC (Bld) 6.4 % Normal 1.7-12.0 [facility] Comment on above: Performed By: #### C BC #### [facility] [address] [place] [address] Dr. Anu Magdaleno NEUT # 6.4 103/ul Normal 1.4-6.5 [facility] Comment on above: Performed By: #### C BC #### [facility] [address] [place] [address] Dr. Anu Magdaleno Neutrophils/100 WBC (Bld) 79.3 % Critically high 43.0-75.0 [facility] Comment on above: Performed By: #### C BC #### [facility] [address] [place] [address] Dr. Anu Magdaleno Platelet mean volume (Bld) [Entitic vol] 10.0 fL Normal 9.5-13.5 [facility] Comment on above: Performed By: #### C BC #### [facility] [address] [place] [address] Dr. Anu Magdaleno PLT 154 103/ul Normal 150-450 [facility] Comment on above: Performed By: #### C BC #### [facility] [address] [place] [address] Dr. Anu Magdaleno RBC 4.52 106/ul Critically low 4.70-6.10 [facility] Comment on above: Performed By: #### C BC #### [facility] [address] [place] [address] Dr. Anu Magdaleno WBC 8.0 103/ul Normal 4.0-11.0 [facility] Comment on above: Performed By: #### C BC #### [facility] [address] [place] [address] Dr. Anu Magdaleno LIPID PROFILEon 08-01-2021 CHOL-HDL RATIO NORM SEE BELOW Normal [facility] Comment on above: Result Comment: 3.3 - 4.4 LOW RISK 4.4 - 7.1 AVERAGE RISK 7.1 - 11.0 MODERATE RISK >11.0 HIGH RISK Performed By: #### F ERR, FETIBC, VITB12 #### [facility] [address] [place] [address] Dr. Anu Magdaleno Cholesterol [Mass/Vol] 102 mg/dL Normal <=200 [facility] Comment on above: Performed By: #### F ERR, FETIBC, VITB12 #### [facility] [address] [place] [address] Dr. Anu Magdaleno Cholesterol in HDL [Mass/Vol] 50 mg/dL Normal 40-60 [facility] Comment on above: Performed By: #### F ERR, FETIBC, VITB12 #### [facility] [address] [place] [address] Dr. Anu Magdaleno Cholesterol in LDL [Mass/Vol] 34.6 mg/dL Normal [facility] Comment on above: Performed By: #### F ERR, FETIBC, VITB12 #### [facility] [address] [place] [address] Dr. Anu Magdaleno Cholesterol.total/ Cholesterol in HDL [Mass ratio] 2.0 {ratio} Normal [facility] Comment on above: Performed By: #### F ERR, FETIBC, VITB12 #### [facility] [address] [place] [address] Dr. Anu Magdaleno HDL NORMAL > or = 60 mg/dl - LO W CARDIOVASCULAR RISK <40 mg/dl - HIGH CARDIOVASCULAR RISK Normal [facility] Comment on above: Performed By: #### F ERR, FETIBC, VITB12 #### [facility] [address] [place] [address] Dr. Anu Magdaleno LDL CALC NORMAL SEE BELOW Normal [facility] Comment on above: Result Comment: <100 mg/dl OPTIMAL 100 - 129 mg/dl NEAR OR ABOVE OPTIMAL 130 - 159 mg/dl BORDERLINE HIGH 160 - 189 mg/dl HIGH >190 mg/dl VERY HIGH Performed By: #### F ERR, FETIBC, VITB12 #### [facility] [address] [place] [address] Dr. Anu Magdaleno Triglyceride [Mass/Vol] 87 mg/dL Normal <=150 [facility] Comment on above: Performed By: #### F ERR, FETIBC, VITB12 #### [facility] [address] [place] [address] Dr. Anu Magdaleno VLDL CALC 17.4 mg/dL Normal [facility] Comment on above: Performed By: #### F ERR, FETIBC, VITB12 #### [facility] [address] [place] [address] Dr. Anu Magdaleno PROF CHEM 8 (BAS METB)on Anion gap [Moles/Vol] 13.8 mmol/L Normal [facility] Comment on above: Performed By: #### F ERR, FETIBC, VITB12 #### [facility] [address] [place] [address] Dr. Anu Magdaleno Calcium [Mass/Vol] 9.0 mg/dL Normal 8.5-10.1 [facility] Comment on above: Performed By: #### F ERR, FETIBC, VITB12 #### [facility] [address] [place] [address] Dr. Anu Magdaleno Chloride [Moles/Vol] 100 mmol/L Normal 98-107 [facility] Comment on above: Performed By: #### F ERR, FETIBC, VITB12 #### [facility] [address] [place] [address] Dr. Anu Magdaleno CO2 [Moles/Vol] 28.4 mmol/L Normal 21.0-32.0 [facility] Comment on above: Performed By: #### F ERR, FETIBC, VITB12 #### [facility] [address] [place] [address] Dr. Anu Magdaleno Creatinine [Mass/Vol] 1.31 mg/dL Critically high 0.70-1.30 [facility] Comment on above: Performed By: #### F ERR, FETIBC, VITB12 #### [facility] [address] [place] [address] Dr. Anu Magdaleno EGFR-AF BRAZILIAN >60 Normal >=60 [facility] Comment on above: Performed By: #### F ERR, FETIBC, VITB12 #### [facility] [address] [place] [address] Dr. Anu Magdaleno EGFR-NON AF BRAZILIAN 52 mL/min/1.73m2 Critically low >=60 [facility] Comment on above: Performed By: #### F ERR, FETIBC, VITB12 #### [facility] [address] [place] [address] Dr. Anu Magdaleno Glucose [Mass/Vol] 118 mg/dL Critically high 74-106 [facility] Comment on above: Performed By: #### F ERR, FETIBC, VITB12 #### [facility] [address] [place] [address] Dr. Anu Magdaleno Potassium [Moles/Vol] 4.2 mmol/L Normal 3.5-5.1 [facility] Comment on above: Performed By: #### F ERR, FETIBC, VITB12 #### [facility] [address] [place] [address] [address] Anu Magdaleno Sodium [Moles/Vol] 138 mmol/L Normal 136-145 [facility] Comment on above: Performed By: #### F ERR, FETIBC, VITB12 #### [facility] [address] [place] [address] [address] Anu Magdaleno Urea nitrogen [Mass/Vol] 21.0 mg/dL Critically high 7.0-18.0 [facility] Comment on above: Performed By: #### F ERR, FETIBC, VITB12 #### [facility] [address] [place] [address] Dr. Anu Magdaleno Urea nitrogen/Creatinin e [Mass ratio] 16.0 mg/mg Normal [facility] Comment on above: Performed By: #### F ERR, FETIBC, VITB12 #### [facility] [address] [place] [address] [address] Anu Magdaleno SGOTon 08-01-2021 AST [Catalytic activity/Vol] 13 U/L Critically low 15-37 [facility] Comment on above: Performed By: #### F ERR, FETIBC, VITB12 #### [facility] [address] [place] [address] Dr. Anu Magdaleno Basic Metabolic Panelon 050 Calcium [Mass/Vol] 9.0 mg/dL Normal 8.2-10.2 [facility] Comment on above: Performed By: #### C BC, PT, PTT, BMP #### [facility] [address] [place] [address] [place] Chloride [Moles/Vol] 104 mmol/L Normal 95-114 [facility] Comment on above: Performed By: #### C BC, PT, PTT, BMP #### [facility] [address] [place] [address] [place] CO2 [Moles/Vol] 23.8 mmol/L Normal 22.0-30.0 [facility] Comment on above: Performed By: #### C BC, PT, PTT, BMP #### [address] Creatinine [Mass/Vol] 1.26 mg/dL Normal 0.64-1.27 [facility] Comment on above: Performed By: #### C BC, PT, PTT, BMP #### [address] Creatinine Clr Calc Pharmacy 44.26 [facility] [place] Comment on above: Result Comment: PERF ORMED BY: [place] [address] PATHOLOGIST ROLL PLUGGER FAVIO CANAS M.D. Performed By: #### C BC, PT, PTT, BMP #### [address] Estimated GFR ( Marzena > 60 [facility] [place] Comment on above: Result Comment: GFR estimated reference range: According to KDOQI guidelines, <60 ml/min/1.73m2 is sufficient to diagnose a patient with chronic kidney disease. Performed By: #### C BC, PT, PTT, BMP #### [address] Estimated GFR (Non- Am 54 [facility] Comment on above: Performed By: #### C BC, PT, PTT, BMP #### [address] Glucose [Mass/Vol] 105 mg/dL High 70-100 [facility] Comment on above: Result Comment: [place] om Glucose Reference Range is dependent on time and content of last meal. Glucose of more than 200 mg/dL in a nonstressed, ambulatory subject supports the diagnosis of Diabetes Mellitus. ADA recommended reference range Performed By: #### C BC, PT, PTT, BMP #### [address] Potassium [Moles/Vol] 4.2 mmol/L Normal 3.5-5.1 [facility] Comment on above: Performed By: #### C BC, PT, PTT, BMP #### [facility] [address] Sodium [Moles/Vol] 137 mmol/L Normal 136-146 [facility] Comment on above: Performed By: #### C BC, PT, PTT, BMP #### [facility] [address] Urea nitrogen [Mass/Vol] 22 mg/dL Normal 9-23 [facility] Comment on above: Performed By: #### C BC, PT, PTT, BMP #### [facility] [address] Coagulation Profileon 2021 aPTT Coag (Bld) [Time] 29.6 s Normal 25.1-36.5 [facility] Comment on above: Result Comment: PERF ORMED BY: [place] [address] PATHOLOGIST ROLL PLUGGER FAVIO CANAS M.D. Performed By: #### C BC, PT, PTT, BMP #### [address] INR Coag (PPP) [Relative time] 1.1 {INR} Normal [facility] Comment on above: Result Comment: INR Therapeutic Range A) Pre- and Peroperative OAT started two weeks before surgery. NOT HIP SURGERY: 1.5 - 2.5 HIP SURGERY: 2 - 3 B) Primary and secondary prevention of venous THROMBOSIS: 2 - 3 C) Active venous thrombosis, pulmonary embolism and prevention of recurrent venous thrombosis: 2 - 3 D) Prevention of arterial thromboembolism including patients with mechanical heart valves: 3 - 4.5 Performed By: #### C BC, PT, PTT, BMP #### [address] PT Coag (PPP) [Time] 12.2 s Normal 9.0-12.9 [facility] Comment on above: Performed By: #### C BC, PT, PTT, BMP #### [address] Complete Blood Count Auto Di ffon 07-19-2021 Basophils (Bld) [#/Vol] 0.1 10*3/uL Normal 0.0-0.2 [facility] Comment on above: Result Comment: PERF ORMED BY: [place] [address] PATHOLOGIST ROLL PLUGGER FAVIO CANAS M.D. Performed By: #### C BC, PT, PTT, BMP #### [address] Basophils/100 WBC (Bld) 0.9 % Normal . [facility] Comment on above: Performed By: #### C BC, PT, PTT, BMP #### [address] Eosinophils (Bld) [#/Vol] 0.4 10*3/uL Normal 0.0-0.45 [facility] Comment on above: Performed By: #### C BC, PT, PTT, BMP #### [address] Eosinophils/100 WBC (Bld) 7.6 % Normal . [facility] Comment on above: Performed By: #### C BC, PT, PTT, BMP #### [address] Erythrocyte distribution width (RBC) [Ratio] 14.5 % Normal 12.0-14.8 [facility] Comment on above: Performed By: #### C BC, PT, PTT, BMP #### [address] Hematocrit (Bld) [Volume fraction] 37.6 % Low 38.8-50.0 [facility] Comment on above: Performed By: #### C BC, PT, PTT, BMP #### [address] Hemoglobin (Bld) [Mass/Vol] 13.3 g/dL Normal 13.0-17.0 [facility] Comment on above: Performed By: #### C BC, PT, PTT, BMP #### [address] [place] [address] [place] Lymphocytes (Bld) [#/Vol] 1.0 10*3/uL Normal 1.00-4.8 [facility] Comment on above: Performed By: #### C BC, PT, PTT, BMP #### [address] Lymphocytes/100 WBC (Bld) 17.4 % Normal . [facility] Comment on above: Performed By: #### C BC, PT, PTT, BMP #### [address] MCH (RBC) [Entitic mass] 30.1 pg Normal 27.5-35.2 [facility] Comment on above: Performed By: #### C BC, PT, PTT, BMP #### [address] MCV (RBC) [Entitic vol] 84.9 fL Normal 83.5-101 [facility] Comment on above: Performed By: #### C BC, PT, PTT, BMP #### [address] Mean Corpuscular HGB Conc 35.4 g/dL Normal 32.5-35.6 [facility] Comment on above: Performed By: #### C BC, PT, PTT, BMP #### [address] Monocytes (Bld) [#/Vol] 0.5 10*3/uL Normal 0.0-0.8 [facility] Comment on above: Performed By: #### C BC, PT, PTT, BMP #### [place] [address] [place] Monocytes/100 WBC (Bld) 9.6 % Normal . [facility] Comment on above: Performed By: #### C BC, PT, PTT, BMP #### [address] Neutrophils (Bld) [#/Vol] 3.5 10*3/uL Normal 1.8-7.7 [facility] Comment on above: Performed By: #### C BC, PT, PTT, BMP #### [facility] [address] Neutrophils/100 WBC (Bld) 64.5 % Normal . [facility] Comment on above: Performed By: #### C BC, PT, PTT, BMP #### [facility] [address] Nucleated RBC/100 WBC (Bld) [Ratio] 0.0 % Normal 0-0.5 [facility] Comment on above: Performed By: #### C BC, PT, PTT, BMP #### [facility] [address] Platelet mean volume (Bld) [Entitic vol] 8.2 fL Normal 6.6-10.1 [facility] Comment on above: Performed By: #### C BC, PT, PTT, BMP #### [address] Platelets (Bld) [#/Vol] 119 10*3/uL Low 150-450 [facility] Comment on above: Performed By: #### C BC, PT, PTT, BMP #### [address] RBC (Bld) [#/Vol] 4.43 10*6/uL Normal 3.90-5.60 [facility] Comment on above: Performed By: #### C BC, PT, PTT, BMP #### [address] WBC (Bld) [#/Vol] 5.5 10*3/uL Normal 4.5-11.0 [facility] Comment on above: Performed By: #### C BC, PT, PTT, BMP #### [address] ABO/Rh Retypeon 07-18-2021 ABO/RH Recheck Result Positive Normal [facility] Comment on above: Result Comment: PERF ORMED BY: [place] [address] PATHOLOGIST ROLL PLUGGER FAVIO CANAS M.D. Type and Screenon 07-18-2021 ABO and Rh group Nom (Bld) Blood group O Rh(D) positive Normal [facility] Comment on above: Order Comment: Comme nt FOR SURGERY 07/19 Basic Metabolic Panelon Calcium [Mass/Vol] 8.8 mg/dL Normal 8.2-10.2 [facility] Comment on above: Performed By: #### C BC, PT, PTT, BMP #### [facility] [address] Chloride [Moles/Vol] 102 mmol/L Normal 95-114 [facility] Comment on above: Performed By: #### C BC, PT, PTT, BMP #### [facility] [address] [place] [address] CO2 [Moles/Vol] 23.7 mmol/L Normal 22.0-30.0 [facility] Comment on above: Performed By: #### C BC, PT, PTT, BMP #### [facility] [address] [place] [address] Creatinine [Mass/Vol] 1.33 mg/dL High 0.64-1.27 [facility] Comment on above: Performed By: #### C BC, PT, PTT, BMP #### [facility] [address] [place] [address] [place] Creatinine Clr Calc Pharmacy 45.37 [facility] [place] Comment on above: Result Comment: PERF ORMED BY: [place] [address] PATHOLOGIST ROLL PLUGGER FAVIO CANAS M.D. Performed By: #### C BC, PT, PTT, BMP #### [facility] [address] [place] [address] Estimated GFR ( Marzena > 60 [facility] [place] Comment on above: Result Comment: GFR estimated reference range: According to KDOQI guidelines, <60 ml/min/1.73m2 is sufficient to diagnose a patient with chronic kidney disease. Performed By: #### C BC, PT, PTT, BMP #### [facility] [address] Estimated GFR (Non- Am 51 Normal [facility] Comment on above: Performed By: #### C BC, PT, PTT, BMP #### [facility] [address] Glucose [Mass/Vol] 98 mg/dL Normal 70-100 [facility] Comment on above: Result Comment: [place] Glucose Reference Range is dependent on time and content of last meal. Glucose of more than 200 mg/dL in a nonstressed, ambulatory subject supports the diagnosis of Diabetes Mellitus. ADA recommended reference range Performed By: #### C BC, PT, PTT, BMP #### [facility] [address] Potassium [Moles/Vol] 4.2 mmol/L Normal 3.5-5.1 [facility] Comment on above: Performed By: #### C BC, PT, PTT, BMP #### [facility] [address] Sodium [Moles/Vol] 136 mmol/L Normal 136-146 [facility] Comment on above: Performed By: #### C BC, PT, PTT, BMP #### [address] Urea nitrogen [Mass/Vol] 25 mg/dL High 9-23 [facility] Comment on above: Performed By: #### C BC, PT, PTT, BMP #### [address] head/brain wo [facility] 07-16 CT head/brain wo [facility] [address] [place] [address] CT Scan Report Signed Patient: Tammi Patel MR#: [id number] : 1935 Acct:[id number] Age/Sex: 85 / M ADM Date: 07/15/21 Loc: Room: [address] [place] [address] Type: ADM INOo Attending Dr: Jose Barber MD Ordering Provider: Esther Booker MD Date of Service: 07/16/21 CT/CT head/brain wo con: new onset symptoms subdural hematoma Copies to: MD Esther Putnam MD Unenhanced head CT TECHNIQUE: Contiguous axial imaging of the head. The CT exam was performed using one or more the following dose reduction techniques: Automated exposure control, adjustment of the MA and/or Kv according to patient size, or use of the iterative reconstruction technique. COMPARISON:07/15/2021 HISTORY:Fell 3 weeks ago. Recent subdural hematoma. Ventricles are normal in size and position allowing for diffuse brain parenchymal atrophy. Decreased density of the white matter is most consistent with chronic small vessel disease. Large left subdural hematoma overlying the left frontal and parietal convexities measuring 1.3 cm in maximal transverse dimension. This is mild decreased from prior examination. Evolving blood products noted. 4 mm midline shift unchanged. No hydrocephalus. No recent vascular distribution infarction is seen. Remote right posterior parietal infarct present. No abnormal extra-axial fluid collections identified. Sinuses, orbits and mastoid air cells are unremarkable. Left frontal sinus osteoma identified. CT/CT head/brain wo con IMPRESSION: Evolving left frontal/parietal subdural hematoma is decreased in size with stable midline shift to the right.This measures 4 mm. Impression dictated by: Aleks Paredes M.D.07/16/2021 9:22 AM Dictation Location: [place] [address] Transcribed By: [facility] 07/16/21921 Dictated By: Aleks Paredes DO 07/16/21916 Signed By: 07/16/21921 Normal [facility] [facility] Basic Metabolic Panelon 05 Calcium [Mass/Vol] 9.1 mg/dL Normal 8.2-10.2 [facility] Comment on above: Performed By: #### C BC, PT, PTT, BMP #### [facility] [address] [place] [address] [place] Chloride [Moles/Vol] 103 mmol/L Normal 95-114 [facility] Comment on above: Performed By: #### C BC, PT, PTT, BMP #### [facility] [address] [place] [address] [place] CO2 [Moles/Vol] 25.7 mmol/L Normal 22.0-30.0 [facility] Comment on above: Performed By: #### C BC, PT, PTT, BMP #### [address] Creatinine [Mass/Vol] 1.40 mg/dL High 0.64-1.27 [facility] Comment on above: Performed By: #### C BC, PT, PTT, BMP #### [address] Creatinine Clr Calc Pharmacy 43.04 [facility] Comment on above: Result Comment: PERF ORMED BY: [place] [address] PATHOLOGIST ROLL PLUGGER FAVIO CANAS M.D. Performed By: #### C BC, PT, PTT, BMP #### [address] Estimated GFR ( Marzena 58 [facility] Comment on above: Result Comment: GFR estimated reference range: According to KDOQI guidelines, <60 ml/min/1.73m2 is sufficient to diagnose a patient with chronic kidney disease. Performed By: #### C BC, PT, PTT, BMP #### [address] Estimated GFR (Non- Am 48 [facility] Comment on above: Performed By: #### C BC, PT, PTT, BMP #### [address] Glucose [Mass/Vol] 119 mg/dL High 70-100 [facility] Comment on above: Result Comment: [place] om Glucose Reference Range is dependent on time and content of last meal. Glucose of more than 200 mg/dL in a nonstressed, ambulatory subject supports the diagnosis of Diabetes Mellitus. ADA recommended reference range Performed By: #### C BC, PT, PTT, BMP #### [address] Potassium [Moles/Vol] 4.1 mmol/L Normal 3.5-5.1 [facility] Comment on above: Performed By: #### C BC, PT, PTT, BMP #### [facility] [address] [place] [id number] [place] Sodium [Moles/Vol] 139 mmol/L Normal 136-146 [facility] Comment on above: Performed By: #### C BC, PT, PTT, BMP #### [facility] [address] [place] [id number] [place] Urea nitrogen [Mass/Vol] 24 mg/dL High 9-23 [facility] Comment on above: Performed By: #### C BC, PT, PTT, BMP #### [facility] [address] COVID-19 Antigenon 2 COVID-19 Antigen Healthcare Worker?: N Reference Range: Negative Negative results, from patients with symptom onset beyond five days, should be treated as presumptive and confirmation with a molecular assay, if necessary, for patient management, may be performed. Negative results do not rule out COVID-19 and should not be used as the sole basis for treatment or patient management decisions, including infection control decisions. Negative results should be considered in the context of a patient's recent exposures, history and the presence of clinical signs and symptoms consistent with COVID-19. The Leigh SARS Antigen TREY does not differentiate between SARS-CoV and SARS-CoV-2. This test was developed and its performance characteristic determined by [employer] and validated at [facility]. This test has not been FDA cleared or approved. This test has been authorized by FDA under an Emergency Use Authorization (EUA). This test has been validated in accordance with the FDA's Guidance Document (Policy for Diagnostics Testing in Laboratories Certified to Perform High Complexity Testing under CLIA prior to Emergency Use Authorization for Coronavirus Disease-2019 during the Public Health Emergency) issued on June 16, 2019. This test is only authorized for the duration of time the declaration that circumstances exist justifying the authorization of the emergency use of in vitro diagnostic tests for detection of SARS-CoV-2 virus and/or diagnosis of COVID-19 infection under section 564(b)(1) of the Act, 21 U.S.C. 360bbb-3(b)(1), unless the authorization is terminated or revoked sooner. SARS-CoV+SARS-CoV-2 (COVID-19) Ag [Presence] in Respiratory specimen by Rapid immunoassay Negative for SARS Antigen by TREY PERFORMED BY: [address] [place] [address] PATHOLOGIST ROLL PLUGGER FAVIO CANAS M.D. Normal [facility] Comment on above: Performed By: #### C BC, PT, PTT, BMP #### [facility] [address] [place] [address] COVID-19 [facility] 07-15-2021 SARS-CoV-2 (COVID-19) RNA RUIZ+probe Ql (Unsp spec) Negative Normal Negative [facility] Comment on above: Order Comment: Healt hcare Worker?: N Result Comment: Testing for SARS-CoV-2 by RT-PCR This test was developed and its performance characteristics determined by [employer] and validated at the [facility]. This test has not been FDA cleared or approved. This test has been authorized by FDA under an Emergency Use Authorization (EUA). This test has been validated in accordance with the FDA's Guidance Document (Policy for Diagnostics Testing in Laboratories Certified to Perform High Complexity Testing under CLIA prior to Emergency Use Authorization for Coronavirus Disease-2019 during the Public Health Emergency) issued on June 16, 2019. This test is only authorized for the duration of time the declaration that circumstances exist justifying the authorization of the emergency use of in vitro diagnostic tests for detection of SARS-CoV-2 virus and/or diagnosis of COVID-19 infection under section 564(b)(1) of the Act, 21 U.S.C. 360bbb-3(b)(1), unless the authorization is terminated or revoked sooner. PERFORMED BY: [address] [place] [address] PATHOLOGIST ROLL PLUGGER FAVIO CANAS M.D. Performed By: #### C BC, PT, PTT, BMP #### [facility] [address] [place], [place] [id number] [facility] CT head/brain wo conon 07-15 CT head/brain wo [facility] [place] [address] CT Scan Report Signed Patient: Tammi Patel MR#: [id number] : 1935 Acct:[id number] Age/Sex: 85 / M ADM Date: 07/15/21 Loc: CT Room: Type: [facility] Attending Dr: Dixie Carroll PA-C Ordering Provider: Dixie Carroll PA-C Date of Service: 07/15/21 CT/CT head/brain wo con: R27.0 Copies to: Dixie Carroll PA-C CT head/brain wo con 07/15/2021 1:11 PM SIGNS AND SYMPTOMS: History of Parkinson's. Fall 2-3 weeks ago TECHNIQUE:Multi-detector CT axial slices of the brain were obtained without IV contrast. CT was performed with one or more of the following dose reduction techniques: Automated exposure control, adjustment of the mA and/or kV according to patient size, or use of iterative reconstruction technique. COMPARISON: None. FINDINGS: There is no evidence of acute ischemia. There is a late subacute appearing subdural hematoma over the left frontal convexity with a hematoma component layering dependently. This measures 1.5 cm in thickness and contributes to 5 mm rightward shift of the midline structures. There is mild mass effect on the left cerebral hemisphere. There is diffuse age-related cortical atrophy. There is periventricular white matter hypoattenuation. There is mineralization of the right deep mata nuclei. 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 Atherosclerotic changes are noted in the intracranial segments of the internal carotid arteries. The ventricular system is normal in size. The brainstem and the cerebellum are unremarkable. 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 The visualized intraorbital contents, the visualized paranasal sinuses, and the infratemporal soft tissues show no acute abnormality. The osseous structures in the skull base and the calvarium show no abnormality. CT/CT head/brain wo con IMPRESSION: There is a late subacute appearing subdural hematoma over the left frontal convexity with a hematoma component layering dependently. This measures 1.5 cm in thickness and contributes to 5 mm rightward shift of the midline structures. Chronic age-related changes are noted, as above. Impression dictated by: Jericho A Isaias, M.D.07/15/2021 1:43 PM Dictation Location: [place] [address] Transcribed By: [facility] 07/15/21 1343 Dictated By: Jericho Esparza II, MD 07/15/21 1339 Signed By: 07/15/21 1343 Normal [facility] Complete Blood Count Auto Di ffon 07-15-2021 Basophils (Bld) [#/Vol] 0.1 10*3/uL Normal 0.0-0.2 [facility] Comment on above: Result Comment: PERF ORMED BY: [place] [address] PATHOLOGIST ROLL PLUGGER FAVIO CANAS M.D. Performed By: #### C BC, PT, PTT, BMP #### [facility] [address] [place] [address] Basophils/100 WBC (Bld) 1.9 % Normal . [facility] Comment on above: Performed By: #### C BC, PT, PTT, BMP #### [facility] [address] [place] [address] Eosinophils (Bld) [#/Vol] 0.3 10*3/uL Normal 0.0-0.45 [facility] Comment on above: Performed By: #### C BC, PT, PTT, BMP #### [facility] [address] [place] [address] Eosinophils/100 WBC (Bld) 5.4 % Normal . [facility] Comment on above: Performed By: #### C BC, PT, PTT, BMP #### [facility] [address] [place] [address] Erythrocyte distribution width (RBC) [Ratio] 14.3 % Normal 12.0-14.8 [facility] Comment on above: Performed By: #### C BC, PT, PTT, BMP #### [facility] [address] [place] [address] Hematocrit (Bld) [Volume fraction] 37.0 % Low 38.8-50.0 [facility] Comment on above: Performed By: #### C BC, PT, PTT, BMP #### [address] Hemoglobin (Bld) [Mass/Vol] 12.9 g/dL Low 13.0-17.0 [facility] Comment on above: Performed By: #### C BC, PT, PTT, BMP #### [address] Lymphocytes (Bld) [#/Vol] 0.8 10*3/uL Low 1.00-4.8 [facility] Comment on above: Performed By: #### C BC, PT, PTT, BMP #### [address] Lymphocytes/100 WBC (Bld) 15.0 % Normal . [facility] Comment on above: Performed By: #### C BC, PT, PTT, BMP #### [address] MCH (RBC) [Entitic mass] 30.0 pg Normal 27.5-35.2 [facility] Comment on above: Performed By: #### C BC, PT, PTT, BMP #### [address] MCV (RBC) [Entitic vol] 85.7 fL Normal 83.5-101 [facility] Comment on above: Performed By: #### C BC, PT, PTT, BMP #### [address] Mean Corpuscular HGB Conc 34.9 g/dL Normal 32.5-35.6 [facility] Comment on above: Performed By: #### C BC, PT, PTT, BMP #### [address] Monocytes (Bld) [#/Vol] 0.4 10*3/uL Normal 0.0-0.8 [facility] Comment on above: Performed By: #### C BC, PT, PTT, BMP #### [address] Monocytes/100 WBC (Bld) 7.3 % Normal . [facility] Comment on above: Performed By: #### C BC, PT, PTT, BMP #### [address] Neutrophils (Bld) [#/Vol] 3.9 10*3/uL Normal 1.8-7.7 [facility] Comment on above: Performed By: #### C BC, PT, PTT, BMP #### [address] Neutrophils/100 WBC (Bld) 70.4 % Normal . [facility] Comment on above: Performed By: #### C BC, PT, PTT, BMP #### [address] Nucleated RBC/100 WBC (Bld) [Ratio] 0.0 % Normal 0-0.5 [facility] Comment on above: Performed By: #### C BC, PT, PTT, BMP #### [address] Platelet mean volume (Bld) [Entitic vol] 8.1 fL Normal 6.6-10.1 [facility] Comment on above: Performed By: #### C BC, PT, PTT, BMP #### [place] [address] [place] Platelets (Bld) [#/Vol] 135 10*3/uL Low 150-450 [facility] Comment on above: Performed By: #### C BC, PT, PTT, BMP #### [place] [address] [place] RBC (Bld) [#/Vol] 4.32 10*6/uL Normal 3.90-5.60 [facility] Comment on above: Performed By: #### C BC, PT, PTT, BMP #### [place] [address] [place] WBC (Bld) [#/Vol] 5.6 10*3/uL Normal 4.5-11.0 [facility] Comment on above: Performed By: #### C BC, PT, PTT, BMP #### [facility] [address] [place] [address] ECG 12 lead ECGon 07-15-2021 ECG 12 lead ECG [facility] [place] [address] [place] [address] Electrocardiograph Report Signed Patient: Tammi Patel MR#: [id number] : 1935 Acct:[id number] Age/Sex: 85 / M ADM Date: 07/15/21 Loc: Room: [address] [place] [address] Type: DIS IN Attending Dr: Jose Barber MD Ordering Provider: Omayra Horowitz MD Date of Service: 07/15/2105/07/1403 ECG/ECG 12 lead ECG: Recheck/Abnormal Lab/Rx Copies to: Test Reason : Blood Pressure : 147/070 mmHG Vent. Rate : 061 BPM Atrial Rate : 061 BPM P-R Int : 178 ms QRS Dur : 104 ms QT Int : 412 ms P-R-T Axes : 043 -35 056 degrees QTc Int : 414 ms Normal sinus rhythm with sinus arrhythmia Left axis deviation Abnormal ECG When compared with ECG of 18-NOV-2019 16:41, No significant change was found Confirmed by OMAYRA HOROWITZ MD ([id number]) on 07/15/2021 7:10:10 PM Referred By: Electronically Signed By:OMAYRA HOROWITZ MD Transcribed By: MUS Signed By Omayra Horowitz MD 07/15/211909 Normal [facility] Partial Thromboplastin Timeo n 07-15-2021 aPTT Coag (Bld) [Time] 31.7 s Normal 25.1-36.5 [facility] Comment on above: Result Comment: PERF ORMED BY: [place] [address] PATHOLOGIST ROLL PLUGGER FAVIO CANAS M.D. Performed By: #### C BC, PT, PTT, BMP #### [facility] [address] [place] [address] [place] Prothrombin Time INRon 07-15 INR Coag (PPP) [Relative time] 1.0 {INR} Normal [facility] Comment on above: Result Comment: INR Therapeutic Range A) Pre- and Peroperative OAT started two weeks before surgery. NOT HIP SURGERY: 1.5 - 2.5 HIP SURGERY: 2 - 3 B) Primary and secondary prevention of venous THROMBOSIS: 2 - 3 C) Active venous thrombosis, pulmonary embolism and prevention of recurrent venous thrombosis: 2 - 3 D) Prevention of arterial thromboembolism including patients with mechanical heart valves: 3 - 4.5 Performed By: #### C BC, PT, PTT, BMP #### [address] PT Coag (PPP) [Time] 11.4 s Normal 9.0-12.9 [facility] Comment on above: Performed By: #### C BC, PT, PTT, BMP #### [address] Leigh Ag Negativeon 07-16-19 Leigh Ag Negative Negative Normal Negative [facility] Comment on above: Result Comment: This is a duplicate Leigh SARS Antigen (TREY) result to be used for statistical tracking purpose only. PERFORMED BY: [place] [address] PATHOLOGIST ROLL PLUGGER FAVIO CANAS M.D. Performed By: #### C BC, PT, PTT, BMP #### [address] XR chest 1V portableon 07-15 XR chest 1V portable [facility] [place] [address] [place] [address] XRay Report Signed Patient: Tammi Patel MR#: [id number] 867 : 1935 Acct:[id number] Age/Sex: 85 / M ADM Date: 07/15/21 Loc: ER Room: Type: [facility] ER Attending Dr: Ordering Provider: Omayra Horowitz MD Date of Service: 07/15/21 XR/XR chest 1V portable: Recheck/Abnormal Lab/Rx Copies to: Omayra Horowitz MD XR chest 1V portable 07/15/2021 2:04 PM SIGNS AND SYMPTOMS: Fall hitting head 3 weeks ago with subdural hematoma seen on CT. PROTOCOL: Frontal radiograph of the chest COMPARISON: 11/18/2019 FINDINGS: The trachea is midline. Atherosclerotic changes are present in the thoracic aorta. There is mild cardiomegaly. The lung parenchyma is clear. The bony thorax is intact. Degenerative changes are noted in the shoulders and thoracic spine. XR/XR chest 1V portable IMPRESSION: No acute cardiopulmonary pathology. Similar mild cardiomegaly is noted. Impression dictated by: Jericho Esparza M.D.07/15/2021 2:43 PM Dictation Location: [facility]--13 Transcribed By: 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) Palpitations (785.1) (R00.2) Overweight with body mass index (BMI) of 27 to 27.9 in adult (278.02,V85.23) (E66.3,Z68.27) Former smoker (V15.82) (Z87.891) Hyperlipidemia (272.4) (E78.5) Orders Essential hypertension, Palpitations, Ventricular tachycardia, paroxysmal Basic Metabolic Panel; Status:Active; Requested for:09Apr2021; Hyperlipidemia AST; Status:Active; Requested for:09Apr2021; Lipid Panel; Status:Active; Requested for:09Apr2021; Overweight with body mass index (BMI) of 27 to 27.9 in adult Healthy Weight Tips; Status:Complete; Done: 09Apr2021 SocHx: Former smoker Tobacco Use Screening; Status:Complete; Done: 09Apr2021 Patient Instructions By signing my name below, Jenny Esteban LPN, Scribe, attest that this documentation has been prepared under the direction and in the presence of Dr. Kaiser Jennings MD. All medical record entries made by the Jorge Luisibcheryl were at my direction and personally dictated by me. I have reviewed the chart and agree that the record accurately reflects my personal performance of the history, physical exam, discussion and plan. Please bring all medicines, vitamins, and herbal supplements with you when you come to the office. Prescriptions will not be filled unless you are compliant with your follow up appointments or have a follow up appointment scheduled as per instruction of your physician. Refills should be requested at the time of your visit. Follow up in 9-10 months Chief Complaint TAMMI PATEL is being seen for an annual follow-up of. History of Present Illness Patient returns in follow-up of problems as noted. He is doing well. His concurs. I cannot elicit from him any arrhythmia symptomatology but we discussed symptoms to watch for and they will call if they arise or occur. In the past he was noted to have ventricular arrhythmias but he underwent comprehensive electrophysiologic evaluation at another facility and the review of that report suggests that there is probably no cause for concern Treatment of his other cardiac risk factors including hypertension and hyperlipidemia appear to be satisfactory and these risk factors are under good control. He is no longer smoking he was congratulated on his smoking efforts. He has none of the palpitations that bothered him in the past and his only real symptoms and/or day-to-day aggravations revolve around his Parkinson's disease and he understands this is unrelated to his heart condition. The merits of a modest diet were reviewed. Surgical History Problems History of Carotid artery angioplasty History of Complete colonoscopy History of Eye surgery History of Gallbladder surgery History of Kidney surgery History of Knee surgery History of Prostate surgery History of Skin biopsy Current Meds Medication NameInstruction Aspirin EC 81 MG Oral Tablet Delayed ReleaseTAKE 1 TABLET DAILY. Atorvastatin Calcium 20 MG Oral TabletTAKE 1 TABLET BY MOUTH DAILY Carbidopa-Levodopa 25-100 MG Oral TabletTAKE 1 TABLET BY MOUTH FOUR TIMES DAILY Clopidogrel Bisulfate 75 MG Oral TabletTAKE 1 TABLET BY MOUTH ONCE DAILY Fiber Laxative TABSUSE DIRECTED. hydroCHLOROthiazide 12.5 MG Oral TabletTAKE 1 TABLET BY MOUTH DAILY Klor-Con/EF 25 MEQ Oral Tablet EffervescentDISSOLVE 1 TABLET IN 6 TO 8 OUNCES OF WATER AND DRINK TWICE DAILY. Ocuvite Adult Formula CAPSTAKE DIRECTED. Tamsulosin HCl - 0.4 MG Oral CapsuleTAKE 1 CAPSULE BY MOUTH ONCE DAILY Allergies Medication No Known Drug Allergies Recorded By: Anastasia Delatorre; 01/22/2021 4:39:05 PM Social History Problems Alcohol use (V49.89) (Z72.89) Twice a week Caffeine use (V49.89) (Z78.9) 1 cup of coffee a day Former smoker (V15.82) (Z87.891) No illicit drug use Review of Systems Constitutional: not feeling tired. Eyes: no eyesight problems. ENT: no hearing loss and no nosebleeds. Cardiovascular: no intermittent leg claudication and as noted in HPI. Respiratory: no chronic cough and no shortness of breath. Gastrointestinal: no change in bowel habits and no blood in stools. Genitourinary: no urinary frequency and no hematuria. Skin: no skin rashes. Neurological: no seizures and no frequent falls. Psychiatric: no depression and not suicidal. All other systems have been reviewed and are negative for complaint. Vitals Vital Signs Recorded: 09Apr2021 11:40AM Heart Rate72, L Brachial Artery Cvyleaka474, LUE, Sitting Yijfxhvws19, LUE, Sitting Height5 ft 10 in Wfdttj959 lb BMI Halqiqoywc92.12 kg/m2 BSA Calculated2.04 Tobacco Useb) No Fall Screeninga) No falls within the last year Physical Exam Constitutional: alert and in no acute distress. Eyes: no erythema, swelling or discharge from the eye . Neck: neck is supple, symme (more content not included)... Normal [employer] Tobacco Screening.on 022 Fall risk assessment a) No falls within the last year [facility] [employer] 250 DO Work Phone: Tobacco use status [facility] b) No [facility] Center[facility] 250 DO Work Phone: [facility] CARDIAC STRESS/REST INJE CTIONon 08-31-2018 [facility] CARDIAC STRESS/REST INJECTION Patient Name: TAMMI PATEL STUDY: Performing facility: [facility], [address] [place] [address], [address], [place] [address] Senior Software Engineer Analytics: Pete DELA CRUZ NP PCP: Dr. Anthony MARTINEZ INDICATION: Abnormal EKG; HISTORY: Gender: M; Age: 82 y/o ; Height: 180.34 cm; Weight: 89.4036081 kg. Abnormal EKG; Palpitations; SOB; Fatigue; Family HX CAD; Quit smoking years ago. COMPARISON: Previous nuclear testing completed at [facility]. ACCESSION NUMBER(S): [id number]; [id number]; [id number] ORDERING CLINICIAN: LINDA HOROWITZ NP TECHNIQUE: ONE DAY protocol. Stress injection: Date:08/31/18, 33.4 mCi of Myoview IV 20 seconds after rapid injection of Lexiscan. Rest injection: Date: 08/31/18, 11.1 mCi of Myoview IV at rest. The patient had a rapid injection of 0.4 mg of Lexiscan IV over 10 seconds. Imaging was performed by gated tomographic technique. STRESS TEST DATA: Resting heart rate was 55 BPM. Resting blood pressure was 140/84 mmHg. Peak blood pressure was 126/74 mmHg. Peak heart rate was 71 BPM. TEST TERMINATED DUE TO: Protocol completed FINDINGS: STRESS TEST RESULTS: Resting electrocardiogram revealed normal sinus rhythm with left anterior fascicular block. There were no significant ischemic ECG changes or dysrhythmias. The patient did not have chest pains/symptoms during procedure. There was a normal recovery phase. IMAGING RESULTS: Image quality was good. Rest and stress tomographic images were reviewed and revealed normal perfusion without evidence of ischemia, myocardial infarction, or left ventricular dilatation with stress. Overall left ventricular systolic function appeared to be normal without regional wall motion abnormalities. Ejection fraction was 55%. TID is 0.986 and is normal. There was evidence of apical attenuation artifact. IMPRESSION: Normal Lexiscan Myoview cardiac perfusion stress test. No evidence of ischemia or myocardial infarction by perfusion imaging. Normal left ventricular systolic function, ejection fraction 55%. Study compared to previous study back in 2014,they appear to be very similar except previous study reported left ventricular ejection fraction of 43%. Electronically signed by: NEO MATHEW MD [facility] CNOVSPon 09-02-2017 CNOVSP Visit (SP) Office ([facility]) TAMMI HERRMANN ([id number]) 1935 MDate Time Provider Department09/02/17 1:00 PM DONOVAN CASTORENA During your visit today, we recorded the following information about you: Temperature Pulse Respiration Blood pressure 97.6 degrees 70/minute 18/minute 121/60 Weight Height 86.7 kg 1.753 [facility] Castorena, 09/17/2017 9:27 AM SignedPATIENT NAME: Tammi Bustamante: [id number] PHYSICIAN: Ben Nielson MD[address] [facility] [id number] CARE PHYSICIAN: Patric Martinez MDOTHER PHYSICIANS:CHIEF COMPLAINT: Patient presents with:Thrombocytopenia: follow upASSESSMENT/PLAN:1. Isolated ThrombocytopeniaDifferential diagnosis includes occult liver disease, ITP, MDS, medicationsinducedMild chronic thrombocytopenia is of unknown etiology. Previously had offered abone marrow aspirate and biopsy, but this is not important at this time as hisplatelets seem to be relatively stable and minimally depressed. Possiblymedication induced.Continue to follow yearly, or sooner if any indication that his platelets aredropping any further or he has other blood count abnormalities.(D69.6) Thrombocytopenia (HCC) (primary encounter diagnosis)Visit (SP) Office on 09/02/17-COMP METABOLIC PANEL-CBC + DIFF (FOR REMOTE [facility] USE)-PROTEIN ELECTROPHORESIS W/INTERP-MONOCLONAL PROT BLD W/INTERP-KAPPA/PLAZA,FREE,SER Return if symptoms worsen or fail to improve.he will follow-up as needed only.His platelets are very minimally below normallimit and he has no symptoms. He knows to call me if he has any petechial rashor bleeding issues. Certainly I am more than willing to see him if his otherhealthcare practitioners think this is necessary. HPI: 81 year old male with past medical history significant for chronicnephrolithiasis, benign prostatic hyperplasia, essential hypertension, TIA ( onPlavix), who had multiple Extracorporeal shock wave lithotripsy ([facility]WL) in [facility] , apparently was scheduled for another one by urology but during the preop work up was discovered to have isolated thrombocytopenia, with the plateletcount of 121.No complains on bleeding, no fever, no recent infections, no new medicationsCreatinine is also elevated at 1.5.No other symptoms. Still is on Plavix.Blood work, including hepatitis profile, LDH, ARYA and liver function tests wasunremarkableHe underwent successful lithotripsy mid 2014Early 2016 had a bowel obstruction that resolved nonsurgically. Told it wasscar tissuerom prior appendicitis.September 02, 2016 no new complaints. He feels good overall. Some joint aches and slowing downa bit as he ages. Some backaches but nothing new or out of the ordinary. [id number] today No more problems with kidney stones.September 02, 2017 plt 143 today. No new complaints. No hospitalizations. He is on lessmedications overall, dropped flomax and proscar.In PT for his L hip.Vitals: BP 121/60 Pulse 70 Temp (Src) 97.6 (Oral) Resp 18 Ht 5' 9.016 (1.75m) Wt 191 lb 3.2 oz (86.7kg) SpO2 98% BMI 28.22 kg/(m2). Bodysurface area is 2.05 meters squared. REVIEW OF SYSTEMS PHYSICAL EXAM ECOG PS: NEGATIVES POSITIVES NEGATIVES POSITIVESGEN: fevers, sweats, chills. Overall feels well. Energy good. GEN: Wellappearing, alert, in no acute distress, appears stated ageSKIN: lesions, rash, itching. SKIN: Normal color, texture, turgor, no rashesor lesionsHEENT: significant headaches, changes in hearing, changes in vision, nosebleeds. ENT: No scleral icterus. NECK: Supple, no thyromegaly, no JVD.: dysuria, frequency or incontinence. LYMPH: No cervical, supraclavicular,axillary, inguinal adenopathy.RESP: dyspnea, cough, wheezing. LUNG: Clear to auscultation, no wheezing ralesor rhonchiCARD: chest pain, leg swelling, palpitations. HEART: Regular. No murmurs,gallop, or rubs. No ectopy.GI: abdominal pain, nausea, vomiting, diarrhea, constipation, melena,hematochezia. ABDM: Soft. Non-tender. Non-distended. Bowel sounds normal.No masses. No hepatosplenomegaly.HEME: prolonged bleeding, bruising, adenopathy. EXT: No clubbing, cyanosisor edema.MUSC: joint pain or swelling. Still some chronic arthritic complaints.MUSC: No joint swelling, deformity, or tenderness.NEURO: syncope, seizures, peripheral numbness or tingling. BACK: Notenderness to palpation. No flank tenderness. MEDICATIONS:potassium citrate ER (UROCIT-K) 10 mEq (1,080 mg) TbERclopidogrel (PLAVIX) 75 mg tablet Take 75 mg by mouth once daily.lisinopril (ZESTRIL) 5 mg tablet Take 1 tablet by mouth once daily.Vit C-Vit Y-Pqnyxd-Cdy-OM-3 (OCUVITE) 458-21-3-150 no-tajw-sa-mg cap Take bymouth once daily.tamsulosin ER (FLOMAX) 0.4 mg cp24 Take 0.4 mg by mouth.finasteride (PROSCAR) 5 mg tablet Take 5 mg by mouth once daily.ALLERGIES: ALLERGIESNo Known AllergiesPAST MEDICAL HISTORYDiagnosis Date- BPH (benign prostatic hyperplasia)- Hypertension- Thrombocytopenia (HCC)PAST SURGICAL HISTORYProcedure Laterality Date- APPENDECTOMY- CATARACT EXTRACTION HX- HERNIA REPAIR HX- TOTAL KNEE REPLACEMENT rightFAMILY HISTORYProblem Relation Age of Onset- Prostate Cancer FatherSOCIAL HISTORY:Social HistorySubstance Use Topics- Smoking status: Former Smoker- Smokeless tobacco: Never Used- Alcohol use Yes Comment: sociallyPHYSICAL EXAM:Vitals: BP 121/60 Pulse 70 Temp (Src) 97.6 (Oral) Resp 18 Ht 5' 9.016 (1.75m) Wt 191 lb 3.2 oz (86.7kg) SpO2 98% BMI 28.22 kg/(m2). Bodysurface area is 2.05 meters squared.ECOG PS: 0-1GEN: Well appearing, alert, in no acute distress, appears stated ageSKIN: Normal color, texture, turgor, no rashes or lesionsENT: No scleral icterus. PERRL bilaterally. EOMI. No pharyngeal erythema.No oral mucosal lesions.NECK: Supple, no thyromegaly, no JVD.LYMPH: No cervical, supraclavicular, axillary, inguinal adenopathy.LUNG: Clear to auscultation, no wheezing rales or rhonchiHEART: Regular. No murmurs, gallop, or rubs. No ectopy.ABDM: Soft. Non-tender. Non-distended. Bowel sounds normal. No masses. Nohepatosplenomegaly.EXT: No clubbing, cyanosis or edema.MUSC: No joint swelling, deformity, or tenderness.BACK: No tenderness to palpation. No flank tenderness.Rod Castorena D.O.Medical OncologistStamford, [place]Referring Provider: BEN NIELSON [[id number]]Allergies As of Date: 09/02/2017(No Known Allergies)Date Reviewed: 09/02/2017Reviewed by: Amy Horowitz - Fully AssessedReason for Visit: Thrombocytopenia [603] Cmt: follow upPrimary Visit Diagnosis:Thrombocytopenia (HCC) [D69.6]Order(s):COMP METABOLIC PANEL [SQCMP] Order #: [id number] FUTURE CBC + DIFF (FOR REMOTE [facility] USE) [SQRCBCDF] Order #: [id number] FUTURE PROTEIN ELECTROPHORESIS W/INTERP [SQSEPG] Order #: [id number] FUTURE MONOCLONAL PROT BLD W/INTERP [SQMPASRM] Order #: [id number] FUTURE KAPPA/PLAZA,FREE,SER [SQKLFRS] Order #: [id number] FUTUREDisposition: Return if symptoms worsen or fail to improve.Follow-up and Disposition History RecordedPrescriptions as of 09/02/2017 Sig: POTASSIUM CITRATE ER 10 MEQ (* CLOPIDOGREL 75 MG TABLET Take 75 mg by mouth once joel* LISINOPRIL 5 MG TABLET Take 1 tablet by mouth once d* VIT C 150 MG-VIT E 30 UNIT-AISHA* Take by mouth once daily. TAMSULOSIN 0.4 MG CAPSULE Take 0.4 mg by mouth. FINASTERIDE 5 MG TABLET Take 5 mg by mouth once daily.Problem List As Of Date 09/02/2017 Noted Resolved Thrombocytopenia (HCC) [D69.6] INVALID FOR*Encounter Status:Closed by DONOVAN CASTORENA DO on 09/17/17 Normal [facility] Comp Metabolic Panelon 09-02 Alanine aminotransferase (ALT) 14 U/L Normal 10-54 [facility] Comment on above: Performed By: #### C MP, KLFRS, SEPG, MPASRM ####[facility] [place] [phone] Albumin 4.2 g/dL Normal 3.9-4.9 [facility] Comment on above: Performed By: #### C MP, KLFRS, SEPG, MPASRM ####[facility] [place] [phone] Alkaline phosphatase (ALP) 57 U/L Normal 36-108 [facility] Comment on above: Performed By: #### C MP, KLFRS, SEPG, MPASRM ####[facility] AveCAutumn [place] [phone] Anion gap 16 mmol/L Normal 9-18 [facility] Comment on above: Performed By: #### C MP, KLFRS, SEPG, MPASRM ####[facility] [place] [phone] Aspartate aminotransferase (AST) 20 U/L Normal 14-40 [facility] Comment on above: Performed By: #### C MP, KLFRS, SEPG, MPASRM ####[facility] [place] [phone] Bilirubin (total) 0.9 mg/dL Normal 0.2-1.3 [facility] Comment on above: Performed By: #### C MP, KLFRS, SEPG, MPASRM ####[facility] [place] [phone] Calcium 9.5 mg/dL Normal 8.5-10.2 [facility] Comment on above: Performed By: #### C MP, KLFRS, SEPG, MPASRM ####[facility] [address]CWilliam [place] [phone] Chloride 100 mmol/L Normal 97-105 [facility] Comment on above: Performed By: #### C MP, KLFRS, SEPG, MPASRM ####[facility] [place] [phone] CO2 22 mmol/L Normal 22-30 [facility] Comment on above: Performed By: #### C MP, KLFRS, SEPG, MPASRM ####[place] [address] AveCTracy [place] [phone] Creatinine 1.31 mg/dL High 0.73-1.22 [facility] Comment on above: Performed By: #### C MP, KLFRS, SEPG, MPASRM ####[facility]CTracy [place] [phone] eGFR (non-black) 53 . Normal [facility] Comment on above: Result Comment: eGFR (Estimated GFR) Units of measure: mL/min/1.73 meters squaredeGFR is derived from the reexpressed MDRD Study equation using the following parameters: serum creatinine, age, gender and race. The creatinine assay has been calibrated to be traceable to IDMS.An eGFR <60 mL/min/1.73m2 for >3 months is consistent with chronic kidney disease. Refer to KDOQI guidelines for clinical interpretation.In patients with unstable renal function, e.g. those with acute kidney injury, the eGFR may not accurately reflect actual GFR. Performed By: #### C MP, KLFRS, SEPG, MPASRM ####[facility] [address]dq[address] AveCWilliam [place] [phone] eGFR (non-black) mL/min/{1.73_m2} Normal [facility] Comment on above: Performed By: #### C MP, KLFRS, SEPG, MPASRM ####[facility] [place] [phone] Glucose mass conc 159 mg/dL High 74-99 [facility] Comment on above: Result Comment: The [place] Diabetes Association (ADA) provides guidance for cutoff values for fasting glucose and random glucose. The ADA defines fasting as no caloric intake for at least 8 hours. Fasting plasma glucose results between 100 to 125 mg/dL indicate increased risk for diabetes (prediabetes).Fasting plasma glucose results greater than or equal to 126 mg/dL meet the criteria for diagnosis of diabetes. In the absence of unequivocal hyperglycemia, results should be confirmed by repeat testing. In a patient with classic symptoms of hyperglycemia or hyperglycemic crisis, random plasma glucose results greater than or equal to 200 mg/dL meet the criteria for diagnosis of diabetes.Reference: Standards of Medical Care in Diabetes 2016, [place] [employer] Association. Diabetes Care. 2016.39(Suppl 1). Performed By: #### C MP, KLFRS, SEPG, MPASRM ####[place] [phone] Potassium molar conc 5.0 mmol/L Normal 3.7-5.1 [facility] Comment on above: Performed By: #### C MP, KLFRS, SEPG, MPASRM ####[place] [address] [place] [phone] Protein 6.3 g/dL Normal 6.3-8.0 [facility] Comment on above: Performed By: #### C MP, KLFRS, SEPG, MPASRM ####[facility] [place] [phone] Sodium 138 mmol/L Normal 136-144 [facility] Comment on above: Performed By: #### C MP, KLFRS, SEPG, MPASRM ####[place] [address] [place] [phone] Urea nitrogen 18 mg/dL Normal 9-24 [facility] Comment on above: Performed By: #### C MP, KLFRS, SEPG, MPASRM ####[place] [phone] Milfay/Plaza,Free,Seron 2017 K/L Ratio, Serum 2.09 High 0.26-1.65 [facility] Comment on above: Performed By: #### C DIPIKA, KLFRS, SEPG, MPASRM ####[facility] AveCBosworth, [place] [phone] Milfay, Free, Serum 24.7 mg/L High 3.30-19.40 [facility] Comment on above: Result Comment: Rare ly, increased serum free light chains values may not be detected due to antigen excess phenomenon. Results should always be correlated with other laboratory results and clinical findings. Performed By: #### C DIPIKA, TOMY, SEPReggie, MPASRM ####[place] [address] AvStone [place], [place] [phone] Lambda, Free, Serum 11.8 mg/L Normal 5.7-26.3 [facility] Comment on above: Result Comment: Rare ly, increased serum free light chains values may not be detected due to antigen excess phenomenon. Results should always be correlated with other laboratory results and clinical findings. Performed By: #### C DIPIKA, TOMY, SEPReggie, MPASRM ####[facility] AvStone [place], [place] [phone] Monoclonl Protein,Blon 09-02 MPA Chinmay/Ledezma Ratio 1.75 Normal 1-3 [facility] Comment on above: Performed By: #### C DIPIKA, TOMY, SEPG, MPASRM ####[facility]CBos[place], [place] [phone] MPA Result No M protein is identified. Normal No M protein is identified . [facility] Comment on above: Performed By: #### C DIPIKA, KLFRS, SEPG, MPASRM ####[facility]CBos[place], [place] [phone] MPA Serum IgA 164 mg/dL Normal 78-391 [facility] Comment on above: Performed By: #### C MP, KLFRS, SEPG, MPASRM ####[facility] AveClevelSarah [place]ille [phone] MPA Serum IgG 602 mg/dL Low 717-1411 [facility] Comment on above: Performed By: #### C MP, KLFRS, SEPG, MPASRM ####[place] [address]CWilliam [place] [phone] MPA Serum IgM 65 mg/dL Normal 53-334 [facility] Comment on above: Performed By: #### C MP, KLFRS, SEPG, MPASRM ####[place] [address] [address]CStephan[place] [phone] Serum Milfay 498 mg/dL Low 534-1267 [facility] Comment on above: Performed By: #### C MP, KLFRS, SEPG, MPASRM ####[place] [address] [address] AveCAut[address] [place] [phone] Serum Lambda 285 mg/dL Normal 253-653 [facility] Comment on above: Performed By: #### C MP, KLFRS, SEPG, MPASRM ####[place] [address] [address] [place] [phone] Staff Review Reviewed by Aquilino Hendricks MD ([id number]) Normal [facility] Comment on above: Performed By: #### C MP, KLFRS, SEPG, MPASRM ####[place] [id number]CWilliam [place] [phone] PROGRESSon 09-02-2017 PROGRESS HNO ID: [id number] thor: Donovan Aquino: (none)Author Type: PhysicianType: Progress NotesFiled: 09/17/2017 9:27 AMNote Text:PATIENT NAME: Tammi MayaRN: [id number] PHYSICIAN: Ben Nielson MD[address] [facility] [id number] CARE PHYSICIAN: Patric Martinez MDOTHER PHYSICIANS:CHIEF COMPLAINT: Patient presents with:Thrombocytopenia: follow upASSESSMENT/PLAN:1. Isolated ThrombocytopeniaDifferential diagnosis includes occult liver disease, ITP, MDS,medications inducedMild chronic thrombocytopenia is of unknown etiology. Previously hadoffered a bone marrow aspirate and biopsy, but this is not important atthis time as his platelets seem to be relatively stable and minimallydepressed. Possibly medication induced.Continue to follow yearly, or sooner if any indication that his plateletsare dropping any further or he has other blood count abnormalities.(D69.6) Thrombocytopenia (HCC) (primary encounter diagnosis)Visit (SP) Office on 09/02/17-COMP METABOLIC PANEL-CBC + DIFF (FOR REMOTE [facility] USE)-PROTEIN ELECTROPHORESIS W/INTERP-MONOCLONAL PROT BLD W/INTERP-KAPPA/PLAZA,FREE,SER Return if symptoms worsen or fail to improve.he will follow-up as needed only.His platelets are very minimally belownormal limit and he has no symptoms. He knows to call me if he has anypetechial rash or bleeding issues. Certainly I am more than willing tosee him if his other healthcare practitioners think this is necessary. 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 Still is on Plavix.Blood work, including hepatitis profile, LDH, ARYA and liver function testswas unremarkableHe underwent successful lithotripsy mid 2014Early 2016 had a bowel obstruction that resolved nonsurgically. Told itwas scar tissuerom prior appendicitis.September 02, 2016 no new complaints. He feels good overall. Some joint aches and slowingdown a bit as he ages. Some backaches but nothing new or out of theordinary. Plt 125 today No more problems with kidney stones.September 02, 2017 plt 143 today. No new complaints. No hospitalizations. He is on lessmedications overall, dropped flomax and proscar.In PT for his L hip.Vitals: BP 121/60 Pulse 70 Temp (Src) 97.6 (Oral) Resp 18 Ht 5'9.016 (1.75m) Wt 191 lb 3.2 oz (86.7kg) SpO2 98% BMI 28.22kg/(m2). Body surface area is 2.05 meters squared. REVIEW OF SYSTEMS PHYSICAL EXAM ECOG PS: NEGATIVES POSITIVES NEGATIVES POSITIVESGEN: fevers, sweats, chills. Overall feels well. Energy good. GEN:Well appearing, alert, in no acute distress, appears stated ageSKIN: lesions, rash, itching. SKIN: Normal color, texture, turgor, norashes or lesionsHEENT: significant headaches, changes in hearing, changes in vision, nosebleeds. ENT: No scleral icterus. NECK: Supple, no thyromegaly, no JVD.: dysuria, frequency or incontinence. LYMPH: No cervical,supraclavicular, axillary, inguinal adenopathy.RESP: dyspnea, cough, wheezing. LUNG: Clear to auscultation, no wheezingrales or rhonchiCARD: chest pain, leg swelling, palpitations. HEART: Regular. Nomurmurs, gallop, or rubs. No ectopy.GI: abdominal pain, nausea, vomiting, diarrhea, constipation, melena,hematochezia. ABDM: Soft. Non-tender. Non-distended. Bowel soundsnormal. No masses. No hepatosplenomegaly.HEME: prolonged bleeding, bruising, adenopathy. EXT: No clubbing,cyanosis or edema.MUSC: joint pain or swelling. Still some chronic arthritic complaints. MUSC: No joint swelling, deformity, or tenderness.NEURO: syncope, seizures, peripheral numbness or tingling. BACK: Notenderness to palpation. No flank tenderness. MEDICATIONS:potassium citrate ER (UROCIT-K) 10 mEq (1,080 mg) TbERclopidogrel (PLAVIX) 75 mg tablet Take 75 mg by mouth once daily.lisinopril (ZESTRIL) 5 mg tablet Take 1 tablet by mouth once daily.Vit C-Vit F-Ezfirb-Iyo-OM-3 (OCUVITE) 654-31-3-150 nz-rspu-xv-mg cap Takeby mouth once daily.tamsulosin ER (FLOMAX) 0.4 mg cp24 Take 0.4 mg by mouth.finasteride (PROSCAR) 5 mg tablet Take 5 mg by mouth once daily.ALLERGIES: ALLERGIESNo Known AllergiesPAST MEDICAL HISTORYDiagnosis Date- BPH (benign prostatic hyperplasia)- Hypertension- Thrombocytopenia (HCC)PAST SURGICAL HISTORYProcedure Laterality Date- APPENDECTOMY- CATARACT EXTRACTION HX- HERNIA REPAIR HX- TOTAL KNEE REPLACEMENT rightFAMILY HISTORYProblem Relation Age of Onset- Prostate Cancer FatherSOCIAL HISTORY:Social HistorySubstance Use Topics- Smoking status: Former Smoker- Smokeless tobacco: Never Used- Alcohol use Yes Comment: sociallyPHYSICAL EXAM:Vitals: BP 121/60 Pulse 70 Temp (Src) 97.6 (Oral) Resp 18 Ht 5'9.016 (1.75m) Wt 191 lb 3.2 oz (86.7kg) SpO2 98% BMI 28.22kg/(m2). Body surface area is 2.05 meters squared.ECOG PS: 0-1GEN: Well appearing, alert, in no acute distress, appears stated ageSKIN: Normal color, texture, turgor, no rashes or lesionsENT: No scleral icterus. PERRL bilaterally. EOMI. No pharyngealerythema. No oral mucosal lesions.NECK: Supple, no thyromegaly, no JVD.LYMPH: No cervical, supraclavicular, axillary, inguinal adenopathy.LUNG: Clear to auscultation, no wheezing rales or rhonchiHEART: Regular. No murmurs, gallop, or rubs. No ectopy.ABDM: Soft. Non-tender. Non-distended. Bowel sounds normal. No masses.No hepatosplenomegaly.EXT: No clubbing, cyanosis or edema.MUSC: No joint swelling, deformity, or tenderness.BACK: No tenderness to palpation. No flank tenderness.Rod Castorena D.O.Medical OncologistCleAgra, [place] Normal [facility] Protein Electrophor.on 09-02 Albumin 3.74 g/dL Normal 3.37-4.23 [facility] Comment on above: Performed By: #### C MP, KLFRS, SEPG, MPASRM ####[facility]CBos[place], [place] [phone] Alpha 1 Globulin 0.22 gm/dL Normal 0.18-0.31 [facility] Comment on above: Performed By: #### C MP, KLFRS, SEPG, MPASRM ####[facility] [place] [phone] Alpha 2 Globulin 0.72 gm/dL Normal 0.52-0.97 [facility] Comment on above: Performed By: #### C MP, KLFRS, SEPG, MPASRM ####[facility] [place] [phone] Beta Globulin 0.89 gm/dL Normal 0.84-1.36 [facility] Comment on above: Performed By: #### C MP, KLFRS, SEPG, MPASRM ####[facility] [place] [phone] Gamma Globulin 0.73 gm/dL Normal 0.70-1.44 [facility] Comment on above: Performed By: #### C MP, KLFRS, SEPG, MPASRM ####[facility] [address]dlusxbkiwqd7[address] AveCWilliam [place] [phone] Interpretation SEE COMMENT Normal [facility] Comment on above: Result Comment: No d efinitive M protein is identified on protein electrophoresis. Performed By: #### C MP, KLFRS, SEPG, MPASRM ####[facility] [place] [phone] M Protein Location N/A Normal [facility] Comment on above: Performed By: #### C MP, KLFRS, SEPG, MPASRM ####[facility] Av[place], [place] [phone] M Dhiraj Concentratn 0.00 gm/dL Normal 0.00 [facility] Comment on above: Performed By: #### C MP, KLFRS, SEPG, MPASRM ####[facility] AvStone [place], [place] [phone] SPE Staff Review Reviewed by Aquilino Hendricks MD ([id number]) Normal [facility] Comment on above: Performed By: #### C MP, KLFRS, SEPG, MPASRM ####[place] [address] [place], [place] [phone] Total Protein, SPE 6.3 g/dL Normal 6.0-8.4 [facility] Comment on above: Performed By: #### C MP, KLFRS, SEPG, MPASRM ####[place] [address] AvStone [place], [place] [phone] Remote CBCDIF (for [facility] use o nly)on 09-02-2017 Abs Baso 0.03 k/uL Normal 0.00-0.10 [facility] Abs Coke 0.49 k/uL Normal 0.00-0.86 [facility] Abs Neut 4.04 k/uL Normal 1.45-7.50 [facility] Basophils/100 WBC Auto (Bld) 0.5 % Normal [facility] Eosinophils 0.36 10*3/uL Normal 0.00-0.45 [facility] Eosinophils/100 leukocytes 5.8 % Normal [facility] Erythrocyte distribution width Auto Ratio (RBC) 13.4 % Normal 11.5-15.0 [facility] Erythrocytes (RBC) 4.86 10*6/uL Normal 4.20-6.00 [facility] Hematocrit (HCT) 42.4 % Normal 39.0-51.0 [facility] Hemoglobin mass conc (Bld) 14.9 g/dL Normal 13.0-17.0 [facility] Lymphocytes 1.24 10*3/uL Normal 1.00-4.00 [facility] Lymphocytes/100 leukocytes 20.1 % Normal [facility] MCH 30.7 pG Normal 26.0-34.0 [facility] MCHC mass conc (RBC) 35.1 g/dL Normal 30.5-36.0 [facility] MCV 87.2 fL Normal 80.0-100.0 [facility] Monocytes/100 leukocytes 8.0 % Normal [facility] Neutrophils/100 WBC Auto (Bld) 65.6 % Normal [facility] Platelet mean volume (PMV) 10.2 fL Normal 9.0-12.7 [facility] Platelets 143 10*3/uL Low 150-400 [facility] WBC (Leukocytes) 6.16 10*3/uL Normal 3.70-11.00 [facility] Vital Signs Date Time Vital Sign Value Performing Clinician Facility 02-16-2023 10:43-0500 Blood Pressure Location Jourdan ANDRES [facility] 02-16-2023 10:43-0500 Diastolic blood pressure 60 mm[Hg] Jourdan ANDRES [facility] 02-16-2023 10:43-0500 Heart rate 62 /min Jourdan ANDRES [facility] 02-16-2023 10:43-0500 Respiratory rate 16 /min Jourdan ANDRES [facility] 02-16-2023 10:43-0500 Systolic blood pressure 105 mm[Hg] Jourdan ANDRES [facility] 02-12-2023 11:30-0500 Body height 180.34 cm Wilder Kay Other [employer] Other 02-12-2023 11:30-0500 Body mass index (BMI) [Ratio] 26.02 kg/m2 Wilder Ball Other [employer] Other 02-12-2023 11:30-0500 Body weight 84.64 kg Wilder Ball Other [employer] Other 02-12-2023 11:30-0500 Diastolic blood pressure 74 mm[Hg] Wilder Ball Other [employer] Other 02-12-2023 11:30-0500 Respiratory rate 12 /min Wilder Ball Other [employer] Other 02-12-2023 11:30-0500 Systolic blood pressure 119 mm[Hg] Wilder Ball Other [employer] Other 01-26-2023 09:18-0500 Body height 177.8 cm Kaiser Jennings MD Work Phone: [facility] 01-26-2023 09:18-0500 Body mass index (BMI) [Ratio] 26.69 kg/m2 Kaiser Jennings MD Work Phone: [facility] 01-26-2023 09:18-0500 Body weight 84.37 kg Kaiser Jennings MD Work Phone: [facility] 01-26-2023 09:18-0500 Diastolic blood pressure 86 mm[Hg] Kaiser Jennings MD Work Phone: [facility] 01-26-2023 09:18-0500 Heart rate 78 /min Kaiser Jennings MD Work Phone: [facility] 01-26-2023 09:18-0500 Systolic blood pressure 124 mm[Hg] Kaiser Jennings MD Work Phone: [facility] 11-13-2022 09:40-0400 Body height 180.34 cm Nabil Sonia Other [employer] Other 11-13-2022 09:40-0400 Body mass index (BMI) [Ratio] 26.3 kg/m2 Nabil Sonia Other [employer] Other 11-13-2022 09:40-0400 Body temperature 97.7 [degF] Nabil Sonia Other [employer] Other 11-13-2022 09:40-0400 Body weight 85.55 kg Nabil Sonia Other [employer] Other 11-13-2022 09:40-0400 Diastolic blood pressure 70 mm[Hg] Nabil Sonia Other [employer] Other 11-13-2022 09:40-0400 Respiratory rate 18 /min Nabil Sonia Other [employer] Other 11-13-2022 09:40-0400 SaO2% (BldA) [Mass fraction] 96 % Nabil Sonia Other [employer] Other 11-13-2022 09:40-0400 Systolic blood pressure 110 mm[Hg] Nabil Sonia Other [employer] Other 04-17-2022 11:00-0500 Body height 180.34 cm Nabil Sonia Other [employer] Other 04-17-2022 11:00-0500 Body mass index (BMI) [Ratio] 26.58 kg/m2 Nabil Sonia Other [employer] Other 04-17-2022 11:00-0500 Body temperature 96.5 [degF] Nabil Sonia Other [employer] Other 04-17-2022 11:00-0500 Body weight 86.46 kg Nabil Sonia Other [employer] Other 04-17-2022 11:00-0500 Diastolic blood pressure 71 mm[Hg] Nabil Sonia Other [employer] Other 04-17-2022 11:00-0500 Respiratory rate 18 /min Nabil Sonia Other [employer] Other 04-17-2022 11:00-0500 SaO2% (BldA) [Mass fraction] 97 % Nabil Sonia Other [employer] Other 04-17-2022 11:00-0500 Systolic blood pressure 131 mm[Hg] Nabil Sonia Other [employer] Other 01-15-2022 15:30-0400 Body height 177.8 cm Wilder Luna [employer] Phone: [facility] [employer] [facility] Work Phone: 01-15-2022 15:30-0400 Body mass index (BMI) [Ratio] 27.26 kg/m2 Wilder Luna [employer] Work Phone: [employer] DO Work Phone: 01-15-2022 15:30-0400 Body surface area Derived from formula 2.04 m2 Wilder Luna [employer] Work Phone: [employer] DO Work Phone: 01-15-2022 15:30-0400 Body weight 86.18 kg Wilder Luna [employer] Work Phone: [facility] 250 DO Work Phone: 01-15-2022 15:30-0400 Diastolic blood pressure 60 mm[Hg] Wilder Luna [employer] Work Phone: [facility] [employer] 250 DO Work Phone: 01-15-2022 15:30-0400 Heart rate 68 /min Wilder Luna Ball Work Phone: [facility] [employer] 250 DO Work Phone: 01-15-2022 15:30-0400 Systolic blood pressure 112 mm[Hg] Wilder Luna [employer] Work Phone: [facility] [employer] 250 DO Work Phone: 2021 11:00-0400 Body height 180.34 cm Nabil Sonia Other [employer] Other 2021 11:00-0400 Body mass index (BMI) [Ratio] 26.11 kg/m2 Nabil Sonia Other [employer] Other 2021 11:00-0400 Body temperature 97.4 [degF] Nabil Sonia Other [employer] Other 2021 11:00-0400 Body weight 84.91 kg Nabil Sonia Other [employer] Other 2021 11:00-0400 Diastolic blood pressure 70 mm[Hg] Nabil Sonia Other [employer] Other 2021 11:00-0400 Respiratory rate 18 /min Nabil Sonia Other [employer] Other 2021 11:00-0400 SaO2% (BldA) [Mass fraction] 97 % Nabil Sonia Other [employer] Other 2021 11:00-0400 Systolic blood pressure 110 mm[Hg] Nabil Sonia Other [employer] Other 07-29-2021 12:30-0400 Body height 180.34 cm Angel Elslopez Other [employer] Other 07-29-2021 12:30-0400 Body mass index (BMI) [Ratio] 26.05 kg/m2 Angel Crespolopez Other [employer] Other 07-29-2021 12:30-0400 Body weight 84.73 kg Angel Crespolopez Other [employer] Other 04-09-2021 11:40-0500 Body height 177.8 cm Wilder Cheryl Ball Work Phone: [facility] [employer] 250 DO Work Phone: 04-09-2021 11:40-0500 Body mass index (BMI) [Ratio] 27.12 kg/m2 Wilder Cheryl Ball Work Phone: [facility] [employer] 250 DO Work Phone: 04-09-2021 11:40-0500 Body surface area Derived from formula 2.04 m2 Wilder E Ball Work Phone: [facility] [employer] 250 DO Work Phone: 04-09-2021 11:40-0500 Body weight 85.73 kg Wilder E Ball Work Phone: [facility] [employer] 250 DO Work Phone: 04-09-2021 11:40-0500 Diastolic blood pressure 70 mm[Hg] Wilder E Ball Work Phone: [facility] 250 DO Work Phone: 04-09-2021 11:40-0500 Heart rate 72 /min Wilder Kay Work Phone: [facility] 250 DO Work Phone: 04-09-2021 11:40-0500 Systolic blood pressure 122 mm[Hg] Wilder Kay Work Phone: [facility] [place] 250 DO Work Phone: Encounters Encounter Date Encounter Type Care Provider Facility Start: 04-06-2023 [id number] Start: 03-30-2023 End: 03-30-2023 ambulatory Wilder Kay Other [employer] Other Start: 03-30-2023 Telephone encounter Wilder Kay G [facility] Start: 03-18-2023 End: 03-18-2023 ambulatory Nabil Sonia Other [employer] Other Start: 03-18-2023 Telephone encounter Nabil Scott [facility] Start: 02-16-2023 End: 02-17-2023 ambulatory Jourdan ANDRES Facility:[facility] Start: 02-16-2023 End: 02-16-2023 Patient encounter procedure Jourdan ANDRES [facility] Start: 02-12-2023 End: 02-12-2023 ambulatory Wilder Kay Other [employer] Other Start: 02-12-2023 Patient encounter procedure Wilder MATIAS [facility] Start: 01-26-2023 End: 01-26-2023 Office outpatient visit 25 minutes Kaiser Jennings MD Work Phone: [facility] Comment on above: Mixed hyperlipidemia (Primary Dx); Ventricular tachycardia, paroxysmal (CMS/HCC); TIA (transient ischemic attack); History of right-sided carotid endarterectomy; Essential hypertension; Bilateral carotid artery stenosis Start: 11-13-2022 End: 11-13-2022 ambulatory Nabil Sonia Other [employer] Other Start: 11-13-2022 Office outpatient vi sit 25 minutes Nabil Sonia [facility] Juan C Start: 09-09-2022 End: 09-09-2022 ambulatory Nabil Sonia Other [employer] Other Start: 09-09-2022 Telephone encounter Nabil Sonia [facility] Start: 07-16-2022 End: 07-17-[address] KAISER JENNINGS Facility:[facility] Start: 04-29-2022 End: 04-29-2022 ambulatory Wilder Kay Other [employer] Other Start: 04-29-2022 Telephone encounter Wilder Kay [facility] Start: 04-17-2022 End: 04-17-2022 ambulatory Nabil Sonia Other [employer] Other Start: 04-17-2022 Office outpatient vi sit 15 minutes Nabil Sonia [facility] Start: 04-07-2022 End: 04-07-2022 ambulatory Wilder Kay Other [employer] Other Start: 04-07-2022 Telephone encounter Wilder ZHENG [facility] Start: 04-02-2022 End: 04-02-2022 ambulatory Wilder Kay Other [employer] Other Start: 04-02-2022 Telephone encounter Wilder ZHENG [facility] Start: 03-26-2022 End: 03-27-[address] DOCTOR RANKIN Facility:[facility] Start: 03-11-2022 End: 03-11-2022 ambulatory Conor Baer Other [employer] Other Start: 03-11-2022 Telephone encounter Conor Baer [facility] Start: 02-10-2022 Adult health examination Nabil Sonia Other [employer] Other Start: 01-15-2022 Office outpatient vi sit 15 minutes Wilder Kay Work Phone: [facility] 250 DO Work Phone: Start: 01-15-2022 ambulatory Wilder Kay Fa cility: Start: 01-10-2022 End: 01-11-[address] VANI RIDLEY Facility:[facility] Start: 12-21-2021 End: 12-21-2021 ambulatory ASIA ESPINAL Facility:[facility] Start: 10-30-2021 End: 10-31-[address] WILDER KAY Facility:[facility] Start: 2021 End: 2021 ambulatory Nabil Sonia Other [employer] Other Start: 2021 Office outpatient vi sit 25 minutes Nabil Sonia [facility] Start: 2021 Telephone encounter Nabil Sonia [facility] Start: 08-26-2021 End: 08-26-2021 ambulatory Angel Cotton Facility:[facility] Start: 08-01-2021 End: 08-02-[address] WILDER KAY Facility:[facility] Start: 07-29-2021 End: 07-29-2021 ambulatory Angel Cotton Other [employer] Other Start: 07-29-2021 Postop follow up vis it related to original px Angel Cotton [facility] Start: 07-15-2021 End: 07-24-2021 Evaluation and management of inpatient Jose Barber Facility:[facility] Start: 07-15-2021 End: 07-15-2021 ambulatory Dixie Carroll Facility:[facility] Start: 04-09-2021 Office outpatient vi sit 25 minutes Wilder Kay Work Phone: [facility] 250 DO Work Phone: Start: 04-09-2021 ambulatory Kaiser Jennings II Ata lity: Start: 09-02-2017 End: 09-17-2017 Ambulatory DONOVAN CASTORENA [facility] Procedures Date Procedure Procedure Detail Performing Clinician Start: 07-18-2021 Antibody screen Angel Cotton Comment on above: Order Comment: Comme nt FOR SURGERY 07/19 Result Comment: PERF ORMED BY: [facility] [address] [place] [address] PATHOLOGIST ROLL PLUGGER FAVIO CANAS M.D. Start: 02-08-2020 Extracorporeal shock wave lithotripsy of calculus of kidney Jourdan ANDRES Start: 12-14-2019 Extracorporeal shock wave lithotripsy of calculus of kidney Jourdan ANDRES Comment on above: Right side Start: 11-18-2019 Cystoscopy Jourdan ROMERO Start: 08-16-2019 History of carotid endarterectomy History of right-sided carotid endarterectomy Kaiser Jennings MD Work Phone: Start: 08-31-2018 Echocardiography Start: 09-01-2016 Cystoscope, device (physical object) Jourdan ANDRES Start: 01-22-2012 Lt. ESWL 2 Jourdan ROMERO Comment on above: 02/19/12, 12/02/12, 01/27/13, 08/24/14 Start: 10-07-2011 Cystoscopic removal of ureteric stent Jourdan ANDRES Start: 09-11-2011 Rt. ESWL Jourdan ROMERO Angioplasty of carot id artery Wilder Kay Work Phone: Appendectomy Jourdangm ANDRES Arthroplasty of knee Jourdan ANDRES Comment on above: Rt. Biopsy of skin Wilder Luna Ba christine Work Phone: Cataract (disorder) Jourdan ANDRES Cephalic (qualifier value) P radhack CIARA Extraction of cataract Kat ANDRES Hernia repair Jourdan ANDRES History of carotid endarterectomy History of right-sided carotid endarterectomy Kaiser Jennings MD Work Phone: Kidney operation Wilder E Cecy Work Phone: Operation on gallbladder Luisito ana E Cecy Work Phone: Operative procedure on knee Wilder E Cecy Work Phone: Procedure on prostate Benjam in E Ball Work Phone: Surgical procedure o n eye proper Wilder E Cecy Work Phone: Total colonoscopy Wilder E Cecy Work Phone: Plan of Treatment Date Care Activity Detail Author Start: 02-15-2024 End: 02-15-2024 Patient encounter procedure 02/15/2024 9:40 AM EST Office Visit [facility] [address] [id number] Kaiser Jennings MD [address] [facility] [address], [address] [id number] [facility] Start: 01-21-2023 FUV, Provider: Kaiser Jennings, Status: Pen, Time: 1:30 PM FUV, Provider: Kaiser Jennings, Status: Pen, Time: 1:30 PM -[facility] 250 DO Work Phone: Start: 02-11-2022 COVID-19 Vaccine (4 - Pfizer series) COVID-19 Vaccine (4 - Pfizer series) [facility] Start: 01-15-2022 FUV, Provider: Kaiser Jennings, Status: Pen, Time: 3:10 PM FUV, Provider: Kaiser Jennings, Status: Pen, Time: 3:10 PM [facility] 250 DO Work Phone: Start: 09-18-1957 DTaP/Tdap/Td Vaccine s (1 - Tdap) DTaP/Tdap/Td Vaccines (1 - Tdap) [facility] Start: 09-18-1953 Diabetes mellitus screening Diabetes Screening [facility] Start: 1935 Lipid [address] Lipid Panel [facility] Start: 1935 Medicare Annual Wellness Visit Medicare Annual Wellness Visit (AWV) [facility] Immunizations Immunization Date Immunization Notes Care Provider Fa [facility] 12-17-2022 Flu vaccine, quadrivalent, high-dose, preservative free, age 65y+ (FLUZONE) Kaiser Jennings MD Work Phone: [facility] 12-17-2022 influenza virus vaccine, unspecified formulation Jourdan ANDRES [facility] 12-17-2022 influenza, high dose seasonal, preservative-free Wilder Kay Other [employer] Other 12-17-2021 Fluzone High-Dose Quadrivalent 0.7 ML Intramuscular Suspension Prefilled Syringe Wilder Kay Work Phone: [facility] 12-17-2021 influenza virus vaccine, unspecified formulation Jourdan ANDRES [facility] 12-17-2021 Pfizer COVID-19 Vac Bivalent 30 MCG/0.3ML Intramuscular Suspension Wilder E Cecy Work Phone: [facility] 11-04-2021 Prevnar 20 0.5 ML Intramuscular Suspension Prefilled Syringe Wilder Kay Work Phone: [facility] 07-05-2021 Comirnaty 30 MCG/0.3 ML Intramuscular Suspension Wilder E Ball [facility] Work Phone: 07-05-2021 SARS-CoV-2 mRNA (jkmfwliquvt-rwuh-diorz se) vaccine Jourdan ANDRES [facility] 12-17-2020 Pfizer-BioNTech COVID-19 Vacc 30 MCG/0.3ML Intramuscular Suspension Wilder Kay Work Phone: [facility] 12-05-2020 Fluzone High-Dose Quadrivalent 0.7 ML Intramuscular Suspension Prefilled Syringe Wilder Kay Work Phone: [facility] 12-05-2020 influenza virus vaccine, unspecified formulation Jourdan ANDRES [facility] 05-06-2020 Pfizer-BioNTech COVID-19 Vacc 30 MCG/0.3ML Intramuscular Suspension Wilder Kay Work Phone: [facility] Comment on above: Result Comment: 2021: [id number] 05-05-2020 Pfizer Purple Cap SARS-CoV-2 Kaiser Jennings MD Work Phone: [facility] Work Phone: 04-06-2020 Pfizer-BioNTech COVID-19 Vacc 30 MCG/0.3ML Intramuscular Suspension Wilder Kay Work Phone: [facility] Comment on above: Result Comment: 2021: [id number] 04-05-2020 Pfizer Purple Cap SARS-CoV-2 Kaiser Jennings MD Work Phone: [facility] Work Phone: 12-16-2019 influenza virus vaccine, unspecified formulation Jourdan ANDRES [facility] 12-16-2019 influenza, high dose seasonal, preservative-free Wilder Kay Work Phone: [facility] 12-09-2019 influenza virus vaccine, unspecified formulation Jourdan ANDRES [facility] 11-15-2019 influenza virus vaccine, unspecified formulation Jourdan ANDRES [facility] 01-06-2019 zoster vaccine recombinant Kaiser Jennings MD Work Phone: [facility] Work Phone: 12-27-2018 influenza virus vaccine, unspecified formulation Jourdan ANDRES [facility] 12-27-2018 influenza, seasonal, injectable Wilder E Ball Work Phone: [facility] Work Phone: 12-14-2018 influenza virus vaccine, unspecified formulation Wilder E Ball Work Phone: [facility] 12-10-2018 influenza, high dose seasonal, preservative-free Kaiser Jennings MD Work Phone: [facility] Work Phone: 12-06-2018 influenza virus vaccine, unspecified formulation Jourdan ANDRES [facility] 12-06-2018 influenza, high dose seasonal, preservative-free Wilder E Ball Work Phone: [facility] Work Phone: 11-08-2018 zoster vaccine recombinant Wilder E Ball Work Phone: [facility] Work Phone: 12-14-2017 influenza virus vaccine, unspecified formulation [facility] Work Phone: 12-09-2017 influenza virus vaccine, unspecified formulation Jourdan ANDRES [facility] 12-09-2017 influenza, injectabl e, quadrivalent, preservative free Kaiser Jennings MD Work Phone: [facility] Work Phone: 12-23-2016 influenza virus vaccine, unspecified formulation Jourdan ANDRES [facility] 12-23-2016 influenza, high dose seasonal, preservative-free Wilder E Cecy Work Phone: [place] [address] DO Work Phone: 12-14-2016 influenza virus vaccine, unspecified formulation Wilder E Ball Work Phone: [place] [address] DO Work Phone: 01-15-2016 influenza virus vaccine, unspecified formulation Wilder E Cecy Work Phone: [place] [address] DO Work Phone: 01-15-2016 pneumococcal conjuga te vaccine, 13 valent Wilder E Cecy Work Phone: [place] [address] DO Work Phone: 12-26-2015 pneumococcal conjuga te vaccine, 13 valent Kaiser Jennings MD Work Phone: [facility] Work Phone: 01-08-2015 influenza virus vaccine, unspecified formulation Wilder E Cecy Work Phone: [facility] 250 DO Work Phone: 12-20-2013 influenza virus vaccine, unspecified formulation Wilder E Ball Work Phone: [facility] 250 DO Work Phone: 10-30-2010 zoster vaccine, live Benjami n E Ball Work Phone: [facility] 250 DO Work Phone: 03-16-2010 pneumococcal polysaccharide vaccine, 23 valent Wilder Kay Work Phone: [facility] 250 DO Work Phone: 03-16-2008 pneumococcal polysaccharide vaccine, 23 valent Wilder Kay Work Phone: [facility] 250 DO Work Phone: pneumococcal Conjuga te, unspecified formulation; Translations: [Need for prophylactic vaccination against Streptococcus pneumoniae (pneumococcus)] Nabil Scott Other [facility] [employer] Other Payers Date Payer Category Payer Medicare [id number] 2022 Unknown 2021 Medicare [id number] 2021 Self-pay 2020 Unknown [id number] 1959 Medicare [id number] 1959 Private Health Insurance [id number] 1935 Unknown [id number] 2.16. [id number] 1935 Unknown [id number] 2.16. [id number] 1935 Unknown [id number] 2.16.84 [id number] 1935 Unknown [id number] 2.16.84 [id number] 1935 Unknown [id number] 2.16.84 [id number] 1935 Unknown [id number] 2.16.84 [id number] 1935 Unknown [id number] 2.16.84 [id number] 1935 Unknown [id number] 2.16.84 [id number] 1935 Unknown [id number] 2.16.84 [id number] 1935 Unknown [id number] 2.16.8 [id number] Medicare [id number] 2.1 [id number] Unknown [id number] 2.16.8 [id number] Unknown [id number] 2.16.8 [id number] Unknown [id number] 2.16.8 [id number] Social History Date Type Detail Facility Start: 01-26-2023 No illicit drug use No illicit drug use -[facility] [place] 250 DO Work Phone: Comment on above: Twice a week; 1 cup of coffee a da y; Start: 01-26-2023 Sex Assigned At F [facility] Start: 01-26-2023 End: 02-16-2023 Tobacco smoking status NHIS Ex-smoker [facility] Work Phone: History of tobacco use Current smoker [facility] Work Phone: History of tobacco use Cigarette Smoker [facility] Work Phone: Start: 01-26-2023 Tobacco use and exposure Smokeless tobacco non-user [facility] Work Phone: Start: 01-26-2023 Alcohol intake Lifetime non-d oumar (finding) [facility] Work Phone: Start: 1935 Sex Assigned At Not on file [facility] Work Phone: Start: 01-16-2023 End: 01-26-2023 Exposure to SARS-CoV-2 (event) Not sure [facility] Tobacco smoking status Never [facility] Functional Status Date Assessment Result Facility 02-16-2023 Functional Status N/A [facility] Clinical Notes 07-14-2021 to 03-30-2023 Note Date & Type Note Facility 03-30-2023 Evaluation note Encounter Date Diagnosis Assessment Notes Mar, Primary hypertension (ICD-10 - I10) [employer] Other 01-03-2024 Evaluation note* Encounter Date Diagnosis Assessment Notes Treatment Notes Treatment Clinical Notes Mar, Vitamin D deficiency (ICD-10 - E55.9) [employer] Other 12-04-2023 Hospital Discharge instructions Patient Education 02/16/2023 11:19:30 Cystoscopy Cystoscopy Cystoscopy is a procedure that is used to help diagnose and sometimes treat conditions that affect the lower urinary tract. The lower urinary tract includes the bladder and the urethra. The urethra is the tube that drains urine from the bladder. Cystoscopy is done using a thin, tube-shaped instrument with a light and camera at the end (cystoscope). The cystoscope may be hard or flexible, depending on the goal of the procedure. The cystoscope is inserted through the urethra, into the bladder. Cystoscopy may be recommended if you have: Urinary tract infections that keep coming back. Blood in the urine (hematuria). An inability to control when you urinate (urinary incontinence) or an overactive bladder. Unusual cells found in a urine sample. A blockage in the urethra, such as a urinary stone. Painful urination. An abnormality in the bladder found during an intravenous pyelogram (IVP) or CT scan. Cystoscopy may also be done to remove a sample of tissue to be examined under a microscope (biopsy). Tell a health care provider about: Any allergies you have. All medicines you are taking, including vitamins, herbs, eye drops, creams, and lwip-laf-nqfscxr medicines. Any problems you or family members have had with anesthetic medicines. Any blood disorders you have. Any surgeries you have had. Any medical conditions you have. Whether you are or may be . What are the risks? Generally, this is a safe procedure. However, problems may occur, including: Infection. Bleeding. Allergic reactions to medicines. Damage to other structures or organs. What happens before the procedure? Medicines Ask your health care provider about: Changing or stopping your regular medicines. This is especially important if you are taking diabetes medicines or blood thinners. Taking medicines such as aspirin and ibuprofen. These medicines can thin your blood. Do not take these medicines unless your health care provider tells you to take them. Taking zsxf-owa-wliburg medicines, vitamins, herbs, and supplements. Tests You may have an exam or testing, such as: X-rays of the bladder, urethra, or kidneys. CT scan of the abdomen or pelvis. Urine tests to check for signs of infection. General instructions Follow instructions from your health care provider about eating or drinking restrictions. Ask your health care provider what steps will be taken to help prevent infection. These steps may include: ?Washing skin with a germ-killing soap. ?Taking antibiotic medicine. Plan to have a responsible adult take you home from the hospital or clinic. What happens during the procedure? You will be given one or more of the following: ?A medicine to help you relax (sedative). ?A medicine to numb the area (local anesthetic). The area around the opening of your urethra will be cleaned. The cystoscope will be passed through your urethra into your bladder. Germ-free (sterile) fluid will flow through the cystoscope to fill your bladder. The fluid will stretch your bladder so that your health care provider can clearly examine your bladder perkins. Your doctor will look at the urethra and bladder. Your doctor may take a biopsy or remove stones. The cystoscope will be removed, and your bladder will be emptied. The procedure may vary among health care providers and hospitals. What can I expect after the procedure? After the procedure, it is common to have: Some soreness or pain in your abdomen and urethra. Urinary symptoms. These include: ?Mild pain or burning when you urinate. Pain should stop within a few minutes after you urinate. This may last for up to 1 week. ?A small amount of blood in your urine for several days. ?Feeling like you need to urinate but producing only a small amount of urine. Follow these instructions at home: Medicines Take qhfg-lts-xfbimgs and prescription medicines only as told by your health care provider. If you were prescribed an antibiotic medicine, take it as told by your health care provider. Do notstop taking the antibiotic even if you start to feel better. General instructions Return to your normal activities as told by your health care provider. Ask your health care provider what activities are safe for you. If you were given a sedative during the procedure, it can affect you for several hours. Do not drive or operate machinery until your health care provider says that it is safe. Watch for any blood in your urine. If the amount of blood in your urine increases, call your healthcare provider. Follow instructions from your health care provider about eating or drinking restrictions. If a tissue sample was removed for testing (biopsy) during your procedure, it is up to you to get your test results. Ask your health care provider, or the department that is doing the test, when yourresults will be ready. Drink enough fluid to keep your urine pale yellow. Keep all follow-up visits. This is important. Contact a health care provider if: You have pain that gets worse or does not get better with medicine, especially pain when you urinate. You have trouble urinating. You have more blood in your urine. Get help right away if: You have blood clots in your urine. You have abdominal pain. You have a fever or chills. You are unable to urinate. Summary Cystoscopy is a procedure that is used to help diagnose and sometimes treat conditions that affect the lower urinary tract. Cystoscopy is done using a thin, tube-shaped instrument with a light and camera at the end. After the procedure, it is common to have some soreness or pain in your abdomen and urethra. Watch for any blood in your urine. If the amount of blood in your urine increases, call your healthcare provider. If you were prescribed an antibiotic medicine, take it as told by your health care provider. Do notstop taking the antibiotic even if you start to feel better. This information is not intended to replace advice given to you by your health care provider. Make sure you discuss any questions you have with your health care provider. Document Revised: 11/13/2021 Document Reviewed: 10/12/2020 [employer] Patient Education 2022 [employer] Follow Up Care 01/15/2022 10:12:17 With:CIARA SALAZAR, Jourdan Anderson, URL Address: [facility] [address] [place] [address]- [phone] When: Unknown [facility] NoteUrology Cystoscopy Cystoscopy is a procedure that is used to help diagnose and sometimes treat conditions that affect the lower urinary tract. The lower urinary tract includes the bladder and the urethra. The urethra is the tube that drains urine from the bladder. Cystoscopy is done using a thin, tube-shaped instrument with a light and camera at the end (cystoscope). The cystoscope may be hard or flexible, depending on the goal of the procedure. The cystoscope is inserted through the urethra, into the bladder. Cystoscopy may be recommended if you have: ? Urinary tract infections that keep coming back. ? Blood in the urine (hematuria). ? An inability to control when you urinate (urinary incontinence) or an overactive bladder. ? Unusual cells found in a urine sample. ? A blockage in the urethra, such as a urinary stone. ? Painful urination. ? An abnormality in the bladder found during an intravenous pyelogram (IVP) or CT scan. Cystoscopy may also be done to remove a sample of tissue to be examined under a microscope (biopsy). Tell a health care provider about: ? Any allergies you have. ? All medicines you are taking, including vitamins, herbs, eye drops, creams, and kmfy-luu-lqytzgc medicines. ? Any problems you or family members have had with anesthetic medicines. ? Any blood disorders you have. ? Any surgeries you have had. ? Any medical conditions you have. ? Whether you are or may be . What are the risks? Generally, this is a safe procedure. However, problems may occur, including: ? Infection. ? Bleeding. ? Allergic reactions to medicines. ? Damage to other structures or organs. What happens before the procedure? Medicines Ask your health care provider about: ? Changing or stopping your regular medicines. This is especially important if you are taking diabetes medicines or blood thinners. ? Taking medicines such as aspirin and ibuprofen. These medicines can thin your blood. Do not take these medicines unless your health care provider tells you to take them. ? Taking tlkw-fyf-xgqhejq medicines, vitamins, herbs, and supplements. Tests You may have an exam or testing, such as: ? X-rays of the bladder, urethra, or kidneys. ? CT scan of the abdomen or pelvis. ? Urine tests to check for signs of infection. General instructions ? Follow instructions from your health care provider about eating or drinking restrictions. ? Ask your health care provider what steps will be taken to help prevent infection. These steps mayinclude: ? Washing skin with a germ-killing soap. ? Taking antibiotic medicine. ? Plan to have a responsible adult take you home from the hospital or clinic. What happens during the procedure? ? You will be given one or more of the following: ? A medicine to help you relax (sedative). ? A medicine to numb the area (local anesthetic). ? The area around the opening of your urethra will be cleaned. ? The cystoscope will be passed through your urethra into your bladder. ? Germ-free (sterile) fluid will flow through the cystoscope to fill your bladder. The fluid will stretch your bladder so that your health care provider can clearly examine your bladder perkins. ? Your doctor will look at the urethra and bladder. Your doctor may take a biopsy or remove stones. ? The cystoscope will be removed, and your bladder will be emptied. The procedure may vary among health care providers and hospitals. What can I expect after the procedure? After the procedure, it is common to have: ? Some soreness or pain in your abdomen and urethra. ? Urinary symptoms. These include: ? Mild pain or burning when you urinate. Pain should stop within a few minutes after you urinate. This may last for up to 1 week. ? A small amount of blood in your urine for several days. ? Feeling like you need to urinate but producing only a small amount of urine. Follow these instructions at home: Medicines ? Take ntdr-eum-fyucppu and prescription medicines only as told by your health care provider. ? If you were prescribed an antibiotic medicine, take it as told by your health care provider. Do not stop taking the antibiotic even if you start to feel better. General instructions ? Return to your normal activities as told by your health care provider. Ask your health care provider what activities are safe for you. ? If you were given a sedative during the procedure, it can affect you for several hours. Do not drive or operate machinery until your health care provider says that it is safe. ? Watch for any blood in your urine. If the amount of blood in your urine increases, call your health care provider. ? Follow instructions from your health care provider about eating or drinking restrictions. ? If a tissue sample was removed for testing (biopsy) during your procedure, it is up to you to getyour test results. 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 Instructed to notify office for any unexpected weight gain > 3lbs and/or increased dyspnea, difficulty breathing during sleep, worsening lower extremity swelling, chest pain or lightheadedness. Reviewed GDMT w/ beta blockers, ZENOBIA/ARB/ARNI, MRA and SGLT-2 Jan, Medicare annual wellness visit, subsequent (ICD-10 - Z00.00) Personalized health advice was given to the beneficiary including a written plan for screenings discussed and provided. Advanced care planning reviewed and/or information given as requested. Additional counseling was provided here today in regards to, [ ]. The above visit was performed by [ ], under direct supervision of [ ]. Document reviewed and amended by provider signed below. Jan, Primary hypertension (ICD-10 - I10) This patient is instructed to consume a healthy, low-fat, low-salt diet. They are also encouraged to continue exercise to achieve/maintain a normal BMI. Jan, Stage 3a chronic kidney disease (ICD-10 - N18.31) The patient is instructed on adequate control of hypertension and diabetes, if appropriate. They are also educated on the associated risks of NSAIDs and PPI use with kidney disease. They were instructed on adequate fluid balance and to avoid dehydration. Jan, Elevated cholesterol (ICD-10 - E78.00) Instructed on diet and exercise with continued statin therapy.Discussed the beneficial effects of lowering cholesterol in reducing the risk for cerebrovascular and cardiovascular disease. Jan, Parkinson's disease (ICD-10 - G20) Fall precautions. MCI associated, assistance by family but remains functional Jan, Bilateral carotid artery stenosis (ICD-10 - I65.23) Instructed on stroke symptoms and to seek treatment in ER COntinue secondary preventive measures. [employer] Other 11-13-2023 History of Present illness Narrative* Kaiser Jennings MD - 01/26/2023 9:00 AM EST Subjective Tammi Vira Patel is a 87 y.o. 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 In interim he is done well. His lifestyle limiting problem is Parkinson's and not cardiovascular. I cannot elicit any angina dyspnea or arrhythmia symptomatology. He is having none of the symptoms of ventricular tachyarrhythmias that he had in the past and because of this we believe he is doing well. His risk factors are well controlled. We discussed his carotid disease. He continues to travel to [place] annually to be evaluated by the vascular surgeon that performed his carotid endarterectomy and hence we will defer management of that entity to the vascular surgeon Review of Systems All other systems reviewed and are negative. Visit Vitals BP 124/86 (BP Location: Left arm, Patient Position: Sitting) Pulse 78 Ht 1.778 m (5' 10 ) Wt 84.4 kg (186 lb) BMI 26.69 kg/m Smoking Status Former BSA 2.04 m Objective Physical Exam Constitutional: Appearance: Normal appearance. He is normal weight. HENT: Nose: Nose normal. Neck: Vascular: No carotid bruit. Cardiovascular: Rate and Rhythm: Normal rate. Pulses: Normal pulses. Heart sounds: Normal heart sounds. Pulmonary: Effort: Pulmonary effort is normal. Abdominal: General: Bowel sounds are normal. Palpations: Abdomen is soft. Genitourinary: Rectum: Normal. Musculoskeletal: General: Normal range of motion. Cervical back: Normal range of motion. Right lower leg: No edema. Left lower leg: No edema. Skin: General: Skin is warm and dry. Neurological: General: No focal deficit present. Mental Status: He is alert. Psychiatric: Mood and Affect: Mood normal. Behavior: Behavior normal. Thought Content: Thought content normal. Judgment: Judgment normal. Current Medications Current Outpatient Medications: aspirin 81 mg EC tablet, Take by mouth once daily., Disp: , Rfl: atorvastatin (Lipitor) 20 mg tablet, Take 1 tablet (20 mg) by mouth once daily., Disp: , Rfl: carbidopa-levodopa (Sinemet) 25-100 mg tablet, Take 1 tablet by mouth 4 times a day., Disp: , Rfl: ergocalciferol (Vitamin D-2) 1.25 MG (21852 UT) capsule, Take 1 capsule (1,250 mcg) by mouth 1 (one) time per week., Disp: , Rfl: eye vitamin supplement (Ocuvite Eye Health Formula) capsule, Take by mouth. As directed, Disp: , Rfl: hydroCHLOROthiazide (HYDRODiuril) 12.5 mg tablet, Take 1 tablet (12.5 mg) by mouth once daily., Disp: , Rfl: tamsulosin (Flomax) 0.4 mg 24 hr capsule, Take by mouth once daily., Disp: , Rfl: Assessment/Plan 1. Mixed hyperlipidemia Well-controlled on current therapy 2. Ventricular tachycardia, paroxysmal (CMS/HCC) No recurrent symptomatology. Presumed quiescent and low risk for recurrence 3. TIA (transient ischemic attack) Preceding his diagnosis of carotid disease and subsequent carotid endarterectomy 4. History of right-sided carotid endarterectomy With TIA, fortunately recovered. Subsequent surgical intervention was satisfactory 5. Essential hypertension Well-controlled on current therapy 6. Bilateral carotid artery stenosis Followed by his vascular surgeon in [place] [facility] Phone: [phone]) 336-625111-13-2023 Instructions* Patient Instructions* Gentry Corona MA - 01/26/2023 9:00 AM EST Please bring all medicines, vitamins, and herbal supplements with you when you come to the office. Prescriptions will not be filled unless you are compliant with your follow up appointments or have a follow up appointment scheduled as per instruction of your physician. Refills should be requested at the time of your visit. [facility] Work Phone: [phone]) 435-900308-31-2023 Evaluation note* Encounter Date Diagnosis Assessment Notes Treatment Notes Treatment Clinical Notes Oct, Luisito hy kid w cr kid I-IV (ICD-10 - I12.9) Blood pressure is controlled. He appears to be euvolemic. Continue oral HCTZ Oct, Chronic kidney disease, stage III (moderate) (ICD-10 - N18.30) He has CKD due to HTN . His baseline Serum creatinine around 1.3-1.6 mg/dL. I discussed with him the importance of good HTN control to surround the progression of CKD. Oct, Kidney stones (ICD-1 0 - N20.0) He denies any recent passage of the kidney stones. He follows with Urologist. Continue potassium effervescent for prophylaxis Oct, Dyslipidemia (ICD-10 - E78.5) Continue statin. Eat heart healthy diet. Oct, Thrombocytopenia (ICD-10 - D69.6) He has thrombocytopenia due to the unclear etiology. Advised him to follow up with PCP Oct, Vitamin D deficiency (ICD-10 - E55.9) Calcium within normal limit. Continue oral vitamin D every 2 weeks. [employer] Other 06-27-2023 Evaluation note* Encounter Date Diagnosis Assessment Notes Treatment Notes Treatment Clinical Notes Aug, Stage 3a chronic kidney disease (ICD-10 - N18.31) [employer] Other 02-14-2023 Evaluation note* Encounter Date Diagnosis Assessment Notes Treatment Notes Treatment Clinical Notes Apr, Elevated cholesterol (ICD-10 - E78.00) [employer] Other 02-02-2023 Evaluation note* Encounter Date Diagnosis Assessment Notes Treatment Notes Treatment Clinical Notes Apr, Luisito hy kid w cr kid I-IV (ICD-10 - I12.9) Blood pressure is controlled. He appears to be euvolemic. Continue oral HCTZ Apr, Chronic kidney disease, stage III (moderate) (ICD-10 - N18.30) He has CKD due to HTN . Her Serum creatinine around 1.3-1.6 mg/dL. He renal function has decline with better blood pressure controlled. I discussed with him the importance of good HTN control to surround the progression of CKD. Apr, Kidney stones (ICD-1 0 - N20.0) He denies any recent passage of the kidney stones. He follows with Dr. Horowitz. Continue potassium effervescent for prophylaxis Apr, Anemia of renal disease (ICD-10 - D63.1) He has adequate iron stores. No need for ARIEL 02 Feb, 2023 Dyslipidemia (ICD-10 - E78.5) Take medications as ordered. Eat heart healthy diet. Apr, Thrombocytopenia (ICD-10 - D69.6) He has thrombocytopenia due to the unclear etiology. His platelets was not available this time. We will continue to monitor. Explained to him if he noticed easy bruising or bleeding then call PCP or our office. Apr, Vitamin D deficiency (ICD-10 - E55.9) Calcium within normal limit. Change oral vitamin D every 2 weeks. [employer] Other 12-27-2022 Evaluation note* Encounter Date Diagnosis Assessment Notes Treatment Notes Treatment Clinical Notes Feb, Vitamin D deficiency (ICD-10 - E55.9) [employer] Other 07-07-2022 Evaluation note* Encounter Date Diagnosis Assessment Notes Treatment Notes Treatment Clinical Notes Sep, Luisito hy kid w cr kid I-IV (ICD-10 - I12.9) Blood pressure is controlled. He appears to be euvolemic. Continue oral HCTZ Sep, Chronic kidney disease, stage III (moderate) (ICD-10 - N18.30) He has CKD due to HTN . Her Serum creatinine around 1.3-1.6 mg/dL. He renal function has decline with better blood pressure controlled. I discussed with him the importance of good HTN control to surround the progression of CKD. Sep, Kidney stones (ICD-1 0 - N20.0) He denies any recent passage of the kidney stones. He follows with Dr. Horowitz. Continue potassium effervescent for prophylaxis Sep, Anemia of renal disease (ICD-10 - D63.1) He has adequate iron stores. No need for ARIEL Sep, Dyslipidemia (ICD-10 - E78.5) Take medications as ordered. Eat heart healthy diet. Sep, Thrombocytopenia (ICD-10 - D69.6) Will monitor platelet if continues to drop will refer to the hematology. Sep, Vitamin D deficiency (ICD-10 - E55.9) Calcium within normal limit. Change oral vitamin D every 2 weeks. [employer] Other 07-07-2022 Evaluation note* Encounter Date Diagnosis Assessment Notes Treatment Notes Treatment Clinical Notes Sep, Vitamin D deficiency (ICD-10 - E55.9) [employer] Other 05-16-2022 Evaluation note* Encounter Date Diagnosis Assessment Notes Treatment Notes Treatment Clinical Notes July, Subacute subdural hematoma (ICD-10 - S06.5X9A) The patient will increase his activities as tolerated and we will see him back in about 3 weeks, when he is about a month out from surgery for a repeat CT scan without contrast. [employer] Other 05-01-2022 History general Narrative - Reported* Type Description Date Medical History Kidney stones Medical History Enlarged Prostate Medical History TIA Medical History FALL BRAIN BLEED 07/2021 Surgical History Lithotripsy, multiple Surgical History Lap Rika 2013 Surgical History Total right knee surgery 1997 Surgical History Appendectomy Surgical History Hernia Surgical History UROLIFT 2017 Surgical History CAROTID RIGHT SIDE 12/2018 Surgical History BRAIN BLEED SURGERY IN [facility] 07/2021 Hospitalization History See past surgical hx Hospitalization History KIDNEY STONES [employer] Other Evaluation + Plan note No data available for this section [facility] evaluation noteNo InformationNort [employer] Other Evaluation note* Diagnosis Mixed hyperlipidemia- Primary Ventricular tachycardia, paroxysmal (CMS/HCC) TIA (transient ischemic attack) Unspecified transient cerebral ischemia History of right-sided carotid endarterectomy Essential hypertension Unspecified essential hypertension Bilateral carotid artery stenosis Occlusion and stenosis of carotid artery without mention of cerebral infarction [facility] Work Phone: History general Narrative - Reported* Type Description Date Medical History Kidney stones Medical History Enlarged Prostate Medical History TIA Surgical History Lithotripsy, multiple Surgical History Lap Rika 2014 Surgical History Total right knee surgery 1997 Surgical History Appendectomy Surgical History Hernia Surgical History UROLIFT 2017 Surgical History CAROTID RIGHT SIDE 12/2018 Hospitalization History See past surgical hx Hospitalization History KIDNEY STONES [employer] Other History of Present illness Narrative* Patient returns in follow-up of problems as noted. He is doing well. His concurs. I cannot elicit from him any arrhythmia symptomatology but we discussed symptoms to watch for and they will callif they arise or occur. In the past he was noted to have ventricular arrhythmias but he underwent comprehensive electrophysiologic evaluation at another facility and the review of that report suggests that there is probably no cause for concern * Treatment of his other cardiac risk factors including hypertension and hyperlipidemia appear to be satisfactory and these risk factors are under good control. He is no longer smoking he was congratulated on his smoking efforts. He has none of the palpitations that bothered him in the past and his only real symptoms and/or day-to-day aggravations revolve around his Parkinson's disease and he understands this is unrelated to his heart condition. The merits of a modest diet were reviewed. [facility] [employer] DO Work Phone: History of Present illness NarrativePatient returns for follow-up of problems as noted. From a cardiac standpoint he is doing well. Recently had a fall off a ladder and he had a head injury with subdural hematoma necessitating bur holes. He had been on Plavix prescribed by neurology for previous history of TIA and because of this event it was stopped and I concur. In regards to other cardiac problems he has no manifestations of ventricular arrhythmia and both his essential hypertension and hyperlipidemia are well controlled. He no longer has the complaints of palpitation either. He is congratulated on his continued tobacco abstinence and we discussed the merits of a modest diet and weight loss.[facility] [employer] DO Work Phone: Progress note No data available for this section [facility] reason for referral (narrative)* Consultation (Routine) - Authorized Specialty Diagnoses / Procedures Referred By Alex oconnell Referred To Contact Cardiology Diagnoses Bilateral carotid artery stenosis Procedures Follow Up In Cardiology Kaiser Jennings [facility] 2, [address] [address] Kaiser Jennings MD [address] [facility] [address], [address] [address] Referral ID Status Reason Start Date Expiration Date V isits Requested Visits Authorized [id number] Authorized 01/26/2023 01/26/2024 1 1 [facility] Work Phone: Summary Purpose Family History Unknown Family Member Name Dates Details No pertinent family history: Mother, Father, Sibling(V49.89, Z78.9) Status:Active Unknown Family Member Name Dates Details No pertinent family history: Mother, Father, Sibling(V49.89, Z78.9) Status:Active Advance Directives No Advanced Directives Records FoundNo Advanced Directives Records FoundNo Advanced Directives Records FoundNo Advanced Directives Records FoundNo Advanced Directives Records FoundNo Advanced Directives Records FoundNo Advanced Directives Records Found Chief Complaint TAMMI PATEL is being seen for an annual follow-up of.TAMMI PATEL is being seen for a 9 month follow-up of. Additional Source Comments (unrecognized sect ion and content) No Status Records FoundNo Status Records FoundNo Status Records FoundNo Status Records FoundNo Status Records FoundNo Status Records FoundNo Status Records Found INFORMATION SOURCE (unrecogn ized section and content) DATE CREATED AUTHOR 09/17/2017 [facility] DATE CREATED AUTHOR AUTHOR'S ORGANIZ ATION 09/04/2018 [facility] DATE CREATED AUTHOR AUTHOR'S ORGANIZ ATION 01/16/2022 [facility] DATE CREATED AUTHOR AUTHOR'S ORGANIZ ATION 01/16/2022 [facility] DATE CREATED AUTHOR AUTHOR'S ORGANIZ ATION 04/19/2022 [facility] DATE CREATED AUTHOR AUTHOR'S ORGANIZ ATION 07/24/2022 [facility] DATE CREATED AUTHOR AUTHOR'S ORGANIZ ATION 02/22/2023 [facility] REASON FOR VISIT (unrecogniz ed section and content) Refill Reason Comments Annual Exam Care Teams (unrecognized sec tion and content) [employer] Relationship Specialty Start Date End Date Wilder Kay DO [address] [place] [address] [address] [facility] [place] [address] PCP - General 1/25/22 FOR RECORDS PERTAINING TO PATIENTS WHO ARE OR HAVE BEEN ENROLLED IN A CHEMICAL DEPENDENCY/SUBSTANCEABUSE PROGRAM, SOME INFORMATION MAY BE OMITTED. This clinical summary was aggregated from multiple sources. Caution should be exercised in using it in the provision of clinical care. This summary normalizes information from multiple sources, and as a consequence, information in this document may materially change the coding, format and clinical context of patient data. In addition, data may be omitted in some cases. CLINICAL DECISIONS SHOULD BE BASED ON THE PRIMARY CLINICAL RECORDS. [facility] [employer] [facility]. provides no warranty or guarantee of the accuracy or completeness of information in this document.
--- NOTE | 2023-04-06 08:21 | PM.URSON ---
Urology Surgery Operative Note Operative Note Procedure Date: 04/06/23 Time Out Performed: yes Pre-op Diagnosis: BPH and recurrent UTIs Post-op Diagnosis: same as pre-op Procedures performed: 1. Cystoscopy. 2. Placement of 18 [place]err[place] Dias catheter in the bladder. Anesthesia: local Primary Surgeon: Jourdan Andres Complications: None Estimated blood loss (mL): 0 Findings: 1. Open prostate. 2. High-grade bladder damage. 3. Copious diffuse inflammatory debris throughout the bladder Specimens: None Drains: 18 [place]err[place] Dias catheter to the bladder Indications for Procedures: This gentleman has a weak stream and presumed incomplete emptying along with recurrent bladder infections. He has had a TURP in the distant past. He now presents for cystoscopy. He has signed an informed consent. Detailed description of Procedure: The patient was kept on the vencor hospital bed in the supine position. He was brought into the endoscopy suite. Genitalia were sterilely prepped and draped in the usual fashion. 2% lidocaine was passed per urethra. Timeout was done by all parties in the room. We all agreed upon the patient's identification and the planned procedures for this patient. I then passed a flexible cystoscope per urethra and into the bladder. The anterior urethra was normal. The prostatic urethra was fairly wide open. Upon entering the bladder a dramatic finding was noted. There was copious amounts of white inflammatory debris throughout the bladder. This had the snow globe effect. Careful inspection of the bladder revealed a high-grade bladder damage. 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 No bladder tumors concerning for malignancy were noted. The scope was then removed. I then placed an 18 [place]err[place]ian Dias catheter in the bladder. 10 cc of fluid was placed in the balloon. It drained freely. The plan for now is to keep a Dias catheter indwelling and to have him take a week of doxycycline. We will put him through urodynamics in a week or 2 to evaluate his bladder function.
[2023-04-06 08:26] VITALS: BP 124/75; BP 128/76; PULSE 60; PULSE 66; RESP 18; O2SAT 98
[2023-04-06] MEDS: LIDOCAINE 2% JELLY 10 ML UR (08:38)
== END 2023-04-06 08:39 | disposition home or self-care (01) ==
PROVIDERS: PCP Internal Medicine; Visit Provider Urology
PROC: (CPT 52000; principal; 2023-04-06 08:00)
DX: N40.1 Benign prostatic hyperplasia with lower urinary tract symptoms (principal); Z87.440 Personal history of urinary (tract) infections; I10 Essential (primary) hypertension; Z86.73 Personal history of transient ischemic attack (TIA), and cerebral infarction without residual deficits; Z87.442 Personal history of urinary calculi; N30.80 Other cystitis without hematuria; Z96.659 Presence of unspecified artificial knee joint; R35.1 Nocturia; Z87.891 Personal history of nicotine dependence
CPT/HCPCS: 52000; 51798

== ENCOUNTER 2023-04-21 16:50 | Emergency (ER) | payer OTHER, SELFPAY ==
[2023-04-21 16:55] VITALS: BP 134/77; PULSE 82; RESP 20; TEMP 37.3; O2SAT 96; BMI 26.5
--- NOTE | 2023-04-21 16:59 | ECG_ITS ---
[facility] Test Date: 2023-04-21 Pat Name: TAMMI YI Department: Room: - Gender: Male Electrocardiograph Technician: : [id number] Requested By: NADIRA SAM Order Number: [id number] Reading MD: NADIRA SAM Measurements Intervals Nesbit Rate: 90 P: 46 NJ: 160 QRS: -58 QRSD: 112 T: 104 QT: 370 QTc: 417 Interpretive Statements 1100 Sinus rhythm 1970 with occasional ectopic premature complexes 2630 Left anterior fascicular block [address] depression [address] & Twave abnormality 8003 Consistent with pulmonary disease 9150 abnormal ECG Electronically Signed On 04-23-2023 6:46:14 EST by NADIRA SAM
--- NOTE | 2023-04-21 17:06 | ED.MALEGU1 ---
HPI - Male Genitourinary General Chief complaint: Urogenital-Male Stated complaint: Hematuria Time Seen by Provider: 04/21/23 16:55 Source: family Mode of arrival: Wheelchair Limitations: no limitations History of Present Illness HPI Narrative: Patient is a an 87-year-old male with a history of dementia who presents to the emergency department for the evaluation of blood noted in his Dias catheter leg bag after physical therapy. Patient is resting comfortably, he has no focal medical complaints at this time. He takes aspirin daily, no other blood thinners. He had cystoscopy with Dias catheter placement on 04/05/[address] Andres and states he is due for another procedure in about 1 week. Dias catheter leg bag is continuing to drain, urine is minimally blood-tinged. There is no clotting. Related Data Home Medications Medication Instructions Recorded Confirmed aspirin 81 mg tablet,delayed 81 mg PO DAILY 04/01/23 04/01/23 release (Adult Aspirin Regimen) atorvastatin 40 mg tablet 40 mg PO DAILY 04/01/23 04/01/23 carbidopa 10 mg-levodopa 100 mg 1 tab PO QID 04/01/23 04/01/23 tablet (Sinemet) ergocalciferol (vitamin D2) 50,000 50,000 unit PO DAILY 04/01/23 04/01/23 unit tablet hydrochlorothiazide 12.5 mg tablet 12.5 mg PO DAILY 04/01/23 04/01/23 lutein 25 mg-zeaxanthin 5 mg cap PO DAILY 04/01/23 capsule (Ocuvite Blue Light) potassium bicarbonate-citric acid 25 meq PO BID 04/01/23 04/01/23 25 mEq effervescent tablet (Klor-Con/EF) tamsulosin 0.4 mg capsule (Flomax) 0.4 mg PO DAILY 04/01/23 04/01/23 Previous Rx's Medication Instructions Recorded doxycycline hyclate 100 mg capsule 100 mg PO BID 7 days #14 caps 04/06/23 cephalexin 500 mg capsule 500 mg PO Q8H 7 days #21 caps 04/21/23 ondansetron 4 mg disintegrating 4 mg PO Q6H PRN nausea and 04/21/23 tablet vomiting #12 tabs Allergies Allergy/AdvReac Type Severity Reaction Status Date / Time No Known Drug Allergies Allergy Verified 04/06/23 07:50 Review of Systems ROS Constitutional Denies: fever or chills Ears, nose, mouth, and throat Denies: throat pain Cardiovascular Denies: chest pain Respiratory Denies: shortness of breath Gastrointestinal Denies: abdominal pain, nausea or vomiting Genitourinary Reports: blood in urine; Denies: painful urination or urinary frequency Musculoskeletal Reports: back pain Integumentary/Breast Denies: rash Neurological Denies: headache Hematologic/Lymphatic Denies: easy bruising or easy bleeding PFSH PFSH Medical History (Updated 04/21/23 @ 18:04 by JOLLY Lucero) Cataract ?H26.9 - Unspecified cataract (ICD-10) Urgency of urination ?R39.15 - Urgency of urination (ICD-10) Transient ischemic attack ?G45.9 - Transient cerebral ischemic attack, unspecified (ICD-10) Recurrent UTI ?N39.0 - Urinary tract infection, site not specified (ICD-10) Nocturia ?R35.1 - Nocturia (ICD-10) Kidney stones ?N20.0 - Calculus of kidney (ICD-10) Hypertension ?I10 - Essential (primary) hypertension (ICD-10) Hesitancy of micturition ?R39.11 - Hesitancy of micturition (ICD-10) Gross hematuria ?R31.0 - Gross hematuria (ICD-10) 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 - Benign prostatic hyperplasia with lower urinary tract symptoms (ICD-10) ?N13.8 - Other obstructive and reflux uropathy (ICD-10) Back pain ?M54.9 - Dorsalgia, unspecified (ICD-10) Abdominal pain ?R10.9 - Unspecified abdominal pain (ICD-10) Surgical History (Updated 04/01/23 @ 10:23 by Mauricio Llanes) 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 - Presence of unspecified artificial knee joint (ICD-10) H/O hernia repair ?Z98.890 - Other specified postprocedural states (ICD-10) ?Z87.19 - Personal history of other diseases of the digestive system (ICD-10) Hx of appendectomy ?Z90.49 - Acquired absence of other specified parts of digestive tract (ICD-10) H/O cystoscopy ?Z98.890 - Other specified postprocedural states (ICD-10) H/O lithotripsy ?Z98.890 - Other specified postprocedural states (ICD-10) Family History (Updated 04/01/23 @ 10:24 by Mauricio Llanes) Brother Kidney stones Sister Kidney stones Father Family history of cancer Social History Within the past year, how often did you have a drink containing alcohol: never Score interpretation: A score less than 4 is consistent with normal alcohol consumption. Smoking status: Never smoker Non-prescribed substance use: denies use Exam Narrative Exam Narrative: Gen.: Awake, alert, in no distress Head: Normocephalic, atraumatic ENT: Moist mucous membranes Respiratory: No respiratory distress Gastrointestinal: Abdomen is soft, nondistended and nontender to palpation; Dias catheter draining to leg bag on the left thigh, urine is blood-tinged with no clotting noted, draining appropriately Extremities: Moves extremities equally Psych: Normal mood and affect Neuro: At baseline Skin: Warm, dry, intact Constitutional Vital Signs, click to edit/add: Last Vital Signs Temp 99.2 F 04/21/23 16:55 Pulse 82 04/21/23 16:55 Resp 20 04/21/23 16:55 BP 134/77 04/21/23 16:55 Pulse Ox 96 04/21/23 16:55 O2 Del Method Room Air 04/21/23 16:55 Course Vital Signs Vital signs: Vital Signs Temperature 99.2 F 04/21/23 16:55 Pulse Rate 82 04/21/23 16:55 Respiratory Rate 20 04/21/23 16:55 Blood Pressure 134/77 04/21/23 16:55 Pulse Oximetry 96 04/21/23 16:55 Oxygen Delivery Method Room Air 04/21/23 16:55 Temperature 99.2 F 04/21/23 16:55 Pulse Rate 82 04/21/23 16:55 Respiratory Rate 20 04/21/23 16:55 Blood Pressure 134/77 04/21/23 16:55 Pulse Oximetry 96 04/21/23 16:55 Oxygen Delivery Method Room Air 04/21/23 16:55 MDM - Male Genitourinary MDM Narrative Medical decision making narrative: Labs are stable, patient noted to have a nitrite positive UTI. He has stable vital signs in the ER no focal medical complaints. He is discharged home with antibiotics and nausea medication as needed. Follow-up with PCP and urology as scheduled and return to the ER if symptoms change or worsen. Medical Records Attestation: I reviewed the patient's medical records. Lab Data Attestation: I reviewed the patient's lab results. Labs: Lab Results 04/21/23 04/21/23 Range/Units 17:25 17:45 WBC 9.7 (4.0-11.0) 10^3/uL RBC 4.10 L (4.70-6.10) 10^6/uL Hgb 12.3 L (14.0-18.0) g/dL Hct 37.5 L (42.0-54.0) % MCV 91.5 (80.0-94.0) fL MCH 30.0 (25.9-34.0) pg MCHC 32.8 (29.9-35.2) g/dL RDW 13.7 (11.0-15.0) % Plt Count 121 L (150-450) 10^3/uL MPV 10.1 (9.5-13.5) fL Neut % (Auto) 84.0 H (43.0-75.0) % Lymph % (Auto) 6.4 L (20.5-60.0) % [place] % (Auto) 6.8 (1.7-12.0) % Eos % (Auto) 2.1 (0.9-7.0) % Baso % (Auto) 0.4 (0.2-2.0) % Neut # (Auto) 8.1 H (1.4-6.5) 10^3/uL Lymph # (Auto) 0.6 L (1.2-3.8) 10^3/uL [place] # (Auto) 0.7 (0.3-0.8) 10^3/uL Eos # (Auto) 0.2 (0.0-0.7) 10^3/uL Baso # (Auto) 0.0 (0.0-0.1) 10^3/uL Abs Immat Gran (auto) 0.03 (0.00-0.03) 10^3/uL Imm/Tot Granulo (auto) 0.3 (0.0-0.5) % PT 10.5 (9.0-11.6) sec INR 0.99 Sodium 140 (136-145) mmol/L Potassium 4.6 (3.5-5.1) mmol/L Chloride 103 (98-107) mmol/L Carbon Dioxide 27.7 (21.0-32.0) mmol/L Anion Gap 13.9 BUN 21.0 H (7.0-18.0) mg/dL Creatinine 1.65 H (0.70-1.30) mg/dL Est GFR ( Amer) 48 L (>=60) Est GFR (Non-Af Amer) 40 L (>=60) BUN/Creatinine Ratio 12.7 Glucose 132 H (74-106) mg/dL Calcium 9.2 (8.5-10.1) mg/dL Urine Color Yellow (YELLOW) Urine Clarity Cloudy A (CLEAR) Urine pH 8.5 (5.0-9.0) Ur Specific [place] 1.015 (1.005-1.025) Urine Protein 30 A (NEG/TRACE) mg/dL Urine Glucose (UA) Negative (NEGATIVE) mg/dL Urine Ketones Trace A (NEGATIVE) mg/dL Urine Occult Blood Large A (NEGATIVE) Urine Nitrite Positive A (NEGATIVE) Urine Bilirubin Negative (NEGATIVE) Urine Urobilinogen 1.0 (0.2-1.0) EU/dL Ur Leukocyte Esterase Large A (NEGATIVE) Discharge Plan Discharge Chief Complaint: Urogenital-Male Clinical Impression: Urinary tract infection Patient Disposition: Home, Self-Care Time of Disposition Decision: 18:04 Condition: Good Prescriptions / Home Meds: New cephalexin 500 mg capsule 500 mg PO Q8H 7 Days Qty: 21 0RF ondansetron 4 mg tablet,disintegrating 4 mg PO Q6H PRN (Reason: nausea and vomiting) Qty: 12 0RF No Action aspirin [Adult Aspirin Regimen] 81 mg tablet,delayed release (DR/EC) 81 mg PO DAILY atorvastatin 40 mg tablet 40 mg PO DAILY ergocalciferol (vitamin D2) 50,000 unit tablet 50,000 unit PO DAILY tamsulosin [Flomax] 0.4 mg capsule 0.4 mg PO DAILY hydrochlorothiazide 12.5 mg tablet 12.5 mg PO DAILY Klor-Con/EF 25 mEq tablet, effervescent 25 meq PO BID lutein-zeaxanthin [Ocuvite Blue Light] 25-5 mg capsule PO DAILY carbidopa-levodopa [Sinemet] 10-100 mg tablet 1 tab PO QID doxycycline hyclate 100 mg capsule 100 mg PO BID 7 Days Qty: 14 0RF Instructions: Catheter-associated Urinary Tract Infection (ED) Stand Alone Forms: Portal Instructions Referrals: Wilder Kay DO [Primary Care Provider] - 1 week
--- OUTSIDE RECORDS SUMMARY | 2023-04-21 17:06 | XMS_ITS | CCD ---
Author Name Unknown Address [address] [place] [address] Organization [facility] Care Team Providers Care Tool Shaper Setup Operator Name Role Phone DONOVAN CASTORENA Unavailable Unavailable NISREEN BEN Unavailable Unavailable Wilder Sam Unavailable Unavailable Unavailable Angel Cotton Unavailable Nabil Scott Unavailable Kaiser Gómez II Referring Unavailable Kaiser Gómez II Attending Unavailable Wilder Sam Primary Care Unavailbernadine e Wilder Sam Primary Care Unavailbernadine e Kaiser Gómez II Referring Unavailable Kaiser Gómez II Attending Unavailable Angel Cotton Attending Unavailable Angel Cotton Admitting Unavailable Wilder Sam Primary Care Unavailable Dixie Carroll Attending Unavailable Dixie Carroll Admitting Unavailable Wilder Sam Primary Care Unavailable Jose Barber Attending Unavailable Jose Barber Admitting Unavailable Sandor Leon Consulting Unavailable Wilder Sam Primary Care Unavailable Conor Baer Unavailable Wilder Sam Unavailable ASIA ESPINAL Consulting Unavailable FANY Hoang, [...] Care Unavailable CECY, DR WADDELL Admitting Unavailable CEYC, DR WADDELL Attending Unavailable CECY, DR WADDELL Consulting Unavailable CECY, DR WADDELL Primary Care Unavailable LIVERMORE, DR VANI Gabriel Consulting Unavailable CECY, DR WADDELL Primary Care Unavailable DANIA COMBS Admitting Unavailable DANIA COMBS Attending Unavailable DANIA COMBS Consulting Unavailable [facility], DR MORA Attending Unavailable MIS, DR MORA Consulting Unavailable MIS, DR MORA Admitting Unavailable CECY, DR WADDELL Primary Care Unavailable ASIA ESPINAL Consulting Unavailable ENMA, DR HECK Consulting Unavailable CECY, DR WADDELL Primary Care Unavailable ENMA, DR HECK Admitting Unavailable ENMA, DR HECK Attending Unavailable Wilder Sam DO Primary Care Provider WILDER SAM Primary Care Physician Priti Joel Attending Unavailable Jourdan URBINA Attending Unavailable Jourdan URBINA Attending Unavailable ASIA PALOMINO Attending Unavailable Medications Current Medications Medication Drug Class(es) Dates Sig (Normalized) Sig (Original) amLODIPine 5 mg oral tablet (5 sources) Dihydropyridine Calcium Channel Cyrus Start: 08-04-2022 take 1 tablet by mouth every twenty-four hours amLODIPine Besylate 5 MG 1 tablet Orally Once a day July, Active Ocuvite (2 sources) Vitamin C Start: 01-31-2019 take 1 tablet by mouth once daily Ocuvite tab(s), Oral, Daily, Refill(s) 0 Start Date: 01/31/19 Status: Ordered aspirin 81 mg oral tablet (15 sources) Platelet Aggregation Inhibitor, Nonsteroidal Anti-inflammatory Drug Start: 11-17-2019 take 1 mg by mouth once daily aspirin 81 mg oral tablet mg tab(s), Oral, Daily, Refills(s) 0 Start Date: 11/17/19 Status: Ordered take 1 tablet by jace every twenty-four hours Aspirin Adult Low Dose 81 MG 1 tablet Orally Once a day Active calcium polycarbophil 625 mg oral tablet (3 sources) take 2 tablets by mo [facility] every twenty-four hours Fiber 625 MG 2 [...] day(s), # 20 cap(s), Refills(s) 0, Pharmacy: [id number], 177, cm, 02/16/23 10:45:00 EST, Height/Length [...] every week Vitamin D (Ergocalciferol) 1.25 MG (93902 UT) Oral Capsule TAKE 1 CAPSULE BY MOUTH EVERY week Quantity: 12 Refills: 0 Ordered: 30-Apr-2021 DO Start : 14-Feb-2021 Complete take 1 capsule by mo uth every other week Ergocalciferol 1.25 MG (46093 UT) 1 capsule Orally Q2 weeks for 90 days Active take 1 capsule by mo uth every week ergocalciferol (Vitamin D-2) 1.25 MG (08422 UT) capsule Take 1 capsule (1,250 mcg) [...] tablet Orally Once a day July, Active [employer] Eye Health Formula - (10 sources) OcuvJobFlash Eye Health Formula - as directed Orally Active oxybutynin chloride 5 mg oral tablet (1 source) Cholinergic Muscarinic Antagonist Start: 04-08-2023 take 1 tablet by mouth three times daily as needed oxybutynin 5 mg Tab 5 mg = 1 tab(s), Oral, TID, PRN for urinary discomfort, # 30 tab(s), Refills(s) 0, Pharmacy: [id number], 177, cm, 02/16/23 10:45:00 EST, Height/Length Dosing, 85, kg, 02/16/23 10:45:00 EST, Weight Dosing Start Date: 04/08/23 Status: Ordered potassium citrate 10 meq extended release oral tablet (10 sources) Start: 04-17-2022 take 1 tablet by mouth every twelve hours Potassium Citrate ER 10 MEQ (1080 MG) 1 tablet with meals Orally Twice a day Apr, Active tamsulosin hydrochloride 0.4 mg oral capsule (20 sources) alpha-Adrenergic Cyrus Start: 05-11-2020 take 1 capsule by mouth once daily Flomax 0.4 mg Cap 0.4 mg = 1 cap(s), Oral, Daily, # 30 cap(s), Refills(s) 11, Pharmacy: [id number], 177, cm, 01/15/22 9:44:00 EDT, Height/Length [...] once daily. 0 08/21/2020 Active Start: 12-01-2019 atorvastatin 4 0 mg Tab Refills(s) 0 Start Date: 12/01/19 Status: Ordered take [address] [facility] every twenty-four hours Atorvastatin Calcium 40 MG 2 tablets Oral Once a day Active carbidopa 25 mg / levodopa 100 mg oral tablet (20 sources) Aromatic Amino Acid Decarboxylation Inhibitor, Aromatic Amino Acid Start: 04-10-2020 take 1 tablet by mouth four times daily Carbidopa-Levodopa 25-100 MG Oral Tablet TAKE 1 TABLET BY MOUTH FOUR TIMES DAILY Quantity: 360 Refills: 0 Ordered: 10-Apr-2020 DO Start : 10-Apr-2020 Active Start: 11-17-2019 take 1 tablet by jace th four times daily Sinemet 10 mg-100 mg Tab tab(s), Oral, QID, Refill(s) 0 Start Date: 11/17/19 Status: Ordered take 1 tablet by jace th four times daily Carbidopa-Levodopa 25-100 MG TAKE 1 TABLET BY MOUTH FOUR TIMES DAILY Oral for 90 Days Active ciprofloxacin 250 mg oral tablet (2 sources) Quinolone Antimicrobial Start: 02-16-2023 take 1 tablet by mouth once daily Cipro 250 mg Tab 250 mg = 1 tab(s), Oral, Daily, Take 1 tablet the day before the procedure and 1 tablet after the procedure, # 2 tab(s), Refills(s) 0, Pharmacy: [id number], 177, cm, 02/16/23 10:45:00 EST, Height/Length [...] DO Active hydroCHLOROthiazide 12.5 mg oral tablet (20 sources) Thiazide Diuretic Start: 04-02-2021 take 1 [...] Ordered: 09-Apr-2021 DO Active polyethylene glycol 3350 514944 mg / potassium chloride 2980 mg / sodium bicarbonate 6720 mg / sodium chloride 5840 mg / sodium sulfate 71632 mg powder for oral solution (2 sources) Osmotic Laxative Start: 12-21-2021 GaviLyte-C 240 GM Oral Solution Reconstituted Quantity: 4000 Refills: 0 Ordered: 21-Dec-2021 DO Start : 21-Dec-2021 Complete potassium bicarbonate 25 meq effervescent oral tablet (10 sources) Start: 02-02-2023 take 1 tablet by mouth twice daily Klor-Con/EF 25 mEq oral tablet, effervescent 25 mEq = 1 tab(s), Oral, BID, # 60 tab(s), Refills(s) 11, Pharmacy: [id number], 177, cm, 01/15/22 9:44:00 EDT, Height/Length Dosing, 85.7, kg, 01/15/22 9:44:00 EDT, Weight Dosing Start Date: 02/02/23 Status: Ordered Start: 04-06-2021 End: 01-26-2023 potassium bicarbonate (Klor- Con/EF) 25 mEq effervescent tablet 1 tablet (25 mEq) twice a day. 0 04/06/2021 01/26/2023 Discontinued (Therapy completed) Problems Active Problems Problem Classification Problem Date Documented Date Episodic/Chronic Abdominal pain (2 sources) Abdominal pain 11-17-2019 Episodic Acute cerebrovascular disease [...] 2 Chronic Genitourinary symptoms and ill-defined conditions (10 sources) Blood in urine; Translations: [Delay when starting to pass urine] 12-29-2019 Episodic Hyperplasia of prostate (7 sources) Benign prostatic hyperplasia with lower urinary [...] current use of drug therapy; Translations: [Other salvage determiner (current) drug therapy] Episodic Other circulatory disease [...] Spondylosis; intervertebral disc disorders; other back problems (4 sources) Backache; Translations: [Low back pain] 12-01-2019 Episodic Transient cerebral ischemia (10 sources) Transient cerebral ischemia; Translations: [Unspecified transient [...] initial encounter] Onset: 2 Urinary tract infections (6 sources) Urinary tract infection, site not specified; [...] 07-29-2021 Episodic Other aftercare (1 source) Other prison (current) drug therapy; Translations: [OTH LONGTERM CURRENT DRUG THERAPY] Onset: 12-23-2021 Episodic Other aftercare (1 source) 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; Translations: [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] Onset: 12-23-2021 Episodic Other gastrointestinal disorders (4 sources) Constipation, unspecified; Translations: [CONSTIPATION UNSPECIFIED] Onset: 12-21-2021 Episodic Unclassified (1 source) Onset: 01-26-2023 01-26-2023 Results Test Name Value Interpretation Reference Range Facility Ambulatory Visit Summaryon 0 04-09-2023 Ambulatory Visit Summary TAMMI PATEL :1935 Visit Date:04/09/2023 Ambulatory Visit Instructions Your Care Team Attending Physician - CONNOR Joel APRN, Priti Daniels Primary Care Physician - CECY MAHAJAN, WILDER This Is Your Medications List aspirin (aspirin 81 mg oral tablet) atorvastatin (atorvastatin 40 mg Tab) carbidopa-levodopa (Sinemet 10 mg-100 mg Tab) ciprofloxacin (Cipro 250 mg Tab) ergocalciferol (ergocalciferol 50,000 intl units Cap) hydrochlorothiazide (hydrochlorothiazide 12.5 mg Tab) multivitamin with minerals (Ocuvite) oxybutynin (oxybutynin 5 mg Tab) potassium bicarbonate (Klor-Con/EF 25 mEq oral tablet, effervescent) tamsulosin (Flomax 0.4 mg Cap) Procedures Performed ESWL of kidney (02/08/2020), ESWL - Extracorporeal shockwave lithotripsy for renal calculus (12/14/2019), Cystoscopy (11/18/2019), Cystoscope (09/01/2016), Lt. ESWL (01/22/2012), Cystoscopic removal of ureteric stent (10/07/2011), Rt. ESWL (09/11/2011), Appendectomy, Cataract, Cranial, Excision of cataract, Hernia Repair, Knee replacement. Discharge Vitals Height 177 cm Height 70 in Weight 85 kg Weight 187 lb BMI 27.13 What to do next Scheduled Follow-Up Appointments Thursday 11:00 AM EST Where: [facility] Medications What How Much When Instructions Unchanged aspirin (aspirin 81 mg oral tablet) By Mouth Every day Unchanged atorvastatin (atorvastatin 40 mg Tab) Unchanged carbidopa-levodopa (Sinemet 10 mg-100 mg Tab) By Mouth 4 times a day Unchanged ciprofloxacin (Cipro 250 mg Tab) 1 Tablets By Mouth Every day Take 1 tablet the day before the procedure and 1 tablet after the procedure Unchanged ergocalciferol (ergocalciferol 50,000 intl units Cap) 6 EA, TAKE 1 CAPSULE BY MOUTH EVERY 2 (TWO) weeks Unchanged hydrochlorothiazide (hydrochlorothiazide 12.5 mg Tab) 90 EA, TAKE 1 TABLET BY MOUTH DAILY Unchanged multivitamin with minerals (Ocuvite) By Mouth Every day Unchanged oxybutynin (oxybutynin 5 mg Tab) 1 Tablets By Mouth 3 times a day as needed for for urinary discomfort Unchanged potassium bicarbonate (Klor-Con/ EF 25 mEq oral tablet, effervescent) 1 Tablets By Mouth 2 times a day Unchanged tamsulosin (Flomax 0.4 mg Cap) 1 Capsules By Mouth Every day Allergies No Known Allergies Problems Ongoing - [...] you for choosing us for your care. Normal [facility] Urology Office/Clinic Noteon 04-08-2023 Urology Office/Clinic Note Chief Complaint 1yr KUB [...] and pvr scan. -Take Keflex 250mg bid d51ziin. Rx sent to in [place]. -Will schedule cystoscopy with PVR. The risks [...] When Contact Information CIARA SALAZAR, Jourdan Anderson, UR [facility] [address], [place] [address] [phone] Additional Instructions: sched cysto Patient Education Cystoscopy I, Kaycee Fabian, personally scribed for Dr. Urbina on 02/16/2023 11:19:48. . Documentation recorded by the scribe, Kaycee Fabian, accurately reflects the services(s) I performed and decisions made by me. Authenticated by Dr. Urbina on 02/16/2023 11:23:26. Problem List/Past Medical History [...] Use:. Cigarettes, H (more content not included)... [facility] Comment on above: Result Comment: Elec tronically Signed By: Daisy Meadows\.br\Date and Time Signed: 04/08/23 14:07 EST Operative Reporton Operative Report [id number]#1.00TIFF [facility] Consent for Procedure/Surger yon 02-20-2023 Consent for Procedure/Surgery [id number]#1.00TIFF [facility] RAD - MISCon 02-20-2023 RAD - MISC [id number]#1.00TIFF [facility] Ambulatory Visit Summaryon 1 04-19-2022 Ambulatory Visit Summary TAMMI PATEL :1935 Visit Date:02/16/2023 Ambulatory Visit Instructions Your Diagnosis Recurrent UTI BPH with urinary obstruction Kidney stone Tests Performed Urnls Dip Stick Auto w/o Microscopy POC 84753 Your Care Team Attending Physician - Jourdan URBINA MD Primary Care Physician - WILDER SAM DO This Is Your Medications List cephalexin [...] the Following Appointments Follow Up with CIARA SALAZAR, BARBIE Burns When: Where: [facility] [address], [place] [address] [phone] Medications What How Much When Instructions New cephalexin (Keflex 250 mg Cap) 1 Capsules By Mouth 2 times a day Duration: 10 Days Pickup at [facility] Unchanged aspirin (aspirin 81 mg oral [...] physician if questions or concerns Pharmacy Information [facility]: [address] [place] [id number] [phone] Test Results Urnls Dip Stick Auto w/o Microscopy POC 78617 (02/16/2023) Bilirubin Urine Dipstick - Negative Blood Urine Dipstick - Trace-lysed Glucose Urine Dipstick - Negative Ketones Urine Dipstick - Trace - 5 mg/dl Leukocytes Urine Dipstick - 1+ Small Nitrite Urine Dipstick - Positive Protein Urine Dipstick - 1+ (30 mg/dl) Specific Lanse Urine Dipstick - 1.025 Urine Appearance Urine [...] a uri (more content not included)... Normal [facility] Physician Orderon 01-13-2023 Physician Order [id number]#1.00TIFF Normal [facility] LIPID PROFILEon 07-16-2022 CHOL-HDL RATIO NORM SEE BELOW Normal [facility] Comment on above: Result Comment: 3.3 - 4.4 LOW RISK 4.4 - 7.1 AVERAGE RISK 7.1 - 11.0 MODERATE RISK >11.0 HIGH RISK Performed By: #### L IPID, AST, BMP #### [facility] [address] [place] [address] Dr. Anu Magdaleno Cholesterol [Mass/Vol] 105 mg/dL Normal <=200 [facility] Comment on above: Performed By: #### L IPID, AST, BMP #### [facility] [address] [address] [address] Anu Magdaleno Cholesterol in HDL [Mass/Vol] 47 mg/dL Normal 40-60 [facility] Comment on above: Performed By: #### L IPID, AST, BMP #### [facility] [address] [address] [address] Aun Magdaleno Cholesterol in LDL [Mass/Vol] 46.2 mg/dL Normal [facility] Comment on above: Performed By: #### L IPID, AST, BMP #### [facility] [address] [place] [address] Dr. Anu Magdaleno Cholesterol.total/ Cholesterol in HDL [Mass ratio] 2.2 {ratio} Normal [facility] Comment on above: Performed By: #### L IPID, AST, BMP #### [facility] [address] [place] [address] Dr. Anu Magdaleno HDL NORMAL > or = 60 mg/dl - LO W CARDIOVASCULAR RISK <40 mg/dl - HIGH CARDIOVASCULAR RISK Normal [facility] Comment on above: Performed By: #### L IPID, AST, BMP #### [facility] [address] [place] [address] Dr. Anu Magdaleno LDL CALC NORMAL SEE BELOW Normal [facility] Comment on above: Result Comment: <100 mg/dl OPTIMAL 100 - 129 mg/dl NEAR OR ABOVE OPTIMAL 130 - 159 mg/dl BORDERLINE HIGH 160 - 189 mg/dl HIGH >190 mg/dl VERY HIGH Performed By: #### L IPID, AST, BMP #### [facility] [address] [address] [address] Anu Magdaleno Triglyceride [Mass/Vol] 59 mg/dL Normal <=150 [facility] Comment on above: Performed By: #### L IPID, AST, BMP #### [facility] [address] [address] [address] Anu Magdaleno VLDL CALC 11.8 mg/dL Normal [facility] Comment on above: Performed By: #### L IPID, AST, BMP #### [facility] [address] [address] [address] Anu Magdaleno PROF CHEM 8 (BAS METB)on Anion gap [Moles/Vol] 13.1 mmol/L Normal [facility] Comment on above: Performed By: #### F ERR, FETIBC, VITB12 #### [facility] [address] [address] [address] Anu Magdaleno Calcium [Mass/Vol] 9.2 mg/dL Normal 8.5-10.1 [facility] Comment on above: Performed By: #### F ERR, FETIBC, VITB12 #### [facility] [address] [place] [address] Dr. Anu Magdaleno Chloride [Moles/Vol] 102 mmol/L Normal 98-107 [facility] Comment on above: Performed By: #### F ERR, FETIBC, VITB12 #### [facility] [address] [place] [address] Dr. Anu Magdaleno CO2 [Moles/Vol] 28.3 mmol/L Normal 21.0-32.0 [facility] Comment on above: Performed By: #### F ERR, FETIBC, VITB12 #### [facility] [address] [place] [address] Dr. Anu Magdaleno Creatinine [Mass/Vol] 1.40 mg/dL Critically high 0.70-1.30 [facility] Comment on above: Performed By: #### F ERR, FETIBC, VITB12 #### [facility] [address] [place] [address] Dr. Anu Magdaleno EGFR-AF DANISH 58 mL/min/1.73m2 Critically low >=60 [facility] Comment on above: Performed By: #### F ERR, FETIBC, VITB12 #### [facility] [address] [place] [address] Dr. Anu Magdaleno EGFR-NON AF DANISH 48 mL/min/1.73m2 Critically low >=60 [facility] Comment on above: Performed By: #### F ERR, FETIBC, VITB12 #### [facility] [address] [address] [address] Anu Magdaleno Glucose [Mass/Vol] 124 mg/dL Critically high 74-106 [facility] Comment on above: Performed By: #### F ERR, FETIBC, VITB12 #### [facility] [address] [place] [address] Dr. Anu Magdaleno Potassium [Moles/Vol] 4.4 mmol/L Normal 3.5-5.1 [facility] Comment on above: Performed By: #### F ERR, FETIBC, VITB12 #### [facility] [address] [place] [address] Dr. Anu Magdaleno Sodium [Moles/Vol] 139 mmol/L Normal 136-145 [facility] Comment on above: Performed By: #### F ERR, FETIBC, VITB12 #### [facility] [address] [place] [address] Dr. Anu Magdaleno Urea nitrogen [Mass/Vol] 20.0 mg/dL Critically high 7.0-18.0 [facility] Comment on above: Performed By: #### F ERR, FETIBC, VITB12 #### [facility] [address] [place] [address] Dr. Anu Magdaleno Urea nitrogen/Creatinin e [Mass ratio] 14.3 mg/mg Normal [facility] Comment on above: Performed By: #### F ERR, FETIBC, VITB12 #### [facility] [address] [place] [address] Dr. Anu Magdaleno SGOTon 07-16-2022 AST [Catalytic activity/Vol] 16 U/L Normal 15-37 [facility] Comment on above: Performed By: #### L IPID, AST, BMP #### [facility] [address] [place] [address] HEAD WO CONon [...] ASIA ESPINAL Date: 2022-03-26 09:12 Normal [facility] Office Visit (Cardiology)on 01-15-2022 Follow-up visit Diagnoses/Problems [...] in adult Healthy Weight Tips; Status:Complete; Done: [id number] Some eating tips that can help you [...] Recorded: 15Jan2022 03:30PM Heart Rate68, L Radial [id number], RUE, Sitting [id number], RUE, Sitting Height5 ft 10 in Wrcpcv385 lb BMI Zhdwzygcik12.26 kg/m2 BSA Calculated2.04 Tobacco Useb) No PHQ-2 [...] . Signatures Electronically signed by : Kaiser Gómez MD; Jan 15 2022 5:34PM EST ( (more content not included)... Normal Here@ [employer] Tobacco Screening.on 022 Adult depression screening assessment No [facility] [employer] jones 250 DO Work Phone: Fall risk assessment b) One or more falls in the last year [facility] [employer] 250 DO Work Phone: Tobacco use status [facility] b) No [facility] [employer] 250 DO Work Phone: XR KUB 1 [...] by: VANI RIDLEY Date: 2022-01-10 17:59 Normal [facility] XR KUB_DECUB or ERECTon 10-0 XR KUB_DECUB [...] by: ASIA ESPINAL Date: 2021-12-21 11:40 Normal [facility] CBC AUTO DIFFon 10-30-2021 BASO # 0.0 103/ul Normal 0.0-0.1 [facility] Comment on above: Performed By: #### C BC #### [facility] [address] [address] [address] Anu Magdaleno Basophils/100 WBC (Bld) 0.7 % Normal 0.2-2.0 [facility] Comment on above: Performed By: #### C BC #### [facility] [address] [address] [address] Anu Magdaleno EO # 0.5 103/ul Normal 0.0-0.7 [facility] Comment on above: Performed By: #### C BC #### [facility] [address] [place] [address] Dr. Anu Magdaleno Eosinophils/100 WBC (Bld) 7.7 % Critically high 0.9-7.0 [facility] Comment on above: Performed By: #### C BC #### [facility] [address] [place] [address] Dr. Anu Magdaleno Erythrocyte distribution width (RBC) [Ratio] 13.7 % Normal 11.0-15.0 [facility] Comment on above: Performed By: #### C BC #### [facility] [address] [place] [address] Dr. Anu Magdaleno Hematocrit (Bld) [Volume fraction] 39.5 % Critically low 42.0-54.0 [facility] Comment on above: Performed By: #### C BC #### [facility] [address] [place] [address] Dr. Anu Magdaleno Hemoglobin (Bld) [Mass/Vol] 13.3 g/dL Critically low 14.0-18.0 [facility] Comment on above: Performed By: #### C BC #### [facility] [address] [place] [address] Dr. Anu Magdaleno IG # 0.02 10e3/ul Normal 0.00-0.03 [facility] Comment on above: Performed By: #### C BC #### [facility] [address] [place] [address] Dr. Anu Magdaleno IG % 0.3 % Normal 0.0-0.5 [facility] Comment on above: Performed By: #### C BC #### [facility] [address] [place] [address] Dr. Anu Magdaleno LYMPH # 1.1 103/ul Critically low 1.2-3.8 [facility] Comment on above: Performed By: #### C BC #### [facility] [address] [place] [address] Dr. Anu Magdaleno Lymphocytes/100 WBC (Bld) 18.4 % Critically low 20.5-60.0 [facility] Comment on above: Performed By: #### C BC #### [facility] [address] [place] [address] Dr. Anu Magdaleno MANUAL DIFF REQ NO Normal [facility] Comment on above: Performed By: #### C BC #### [facility] [address] [place] [address] Dr. Anu Magdaleno MCH (RBC) [Entitic mass] 30.0 pg Normal 25.9-34.0 [facility] Comment on above: Performed By: #### C BC #### [facility] [address] [place] [address] Dr. Anu Magdaleno MCHC (RBC) [Mass/Vol] 33.7 g/dL Normal 29.9-35.2 [facility] Comment on above: Performed By: #### C BC #### [facility] [address] [place] [address] Dr. Anu Magdaleno MCV (RBC) [Entitic vol] 89.2 fL Normal 80.0-94.0 [facility] Comment on above: Performed By: #### C BC #### [facility] [address] [place] [address] Dr. Anu Magdaleno MONO # 0.4 103/ul Normal 0.3-0.8 [facility] Comment on above: Performed By: #### C BC #### [facility] [address] [place] [address] Dr. Anu Magdaleno Monocytes/100 WBC (Bld) 7.4 % Normal 1.7-12.0 [facility] Comment on above: Performed By: #### C BC #### [facility] [address] [place] [address] Dr. Anu Magdaleno NEUT # 3.9 103/ul Normal 1.4-6.5 [facility] Comment on above: Performed By: #### C BC #### [facility] [address] [place] [address] Dr. Anu Magdaleno Neutrophils/100 WBC (Bld) 65.5 % Normal 43.0-75.0 [facility] Comment on above: Performed By: #### C BC #### [facility] [address] [place] [address] Dr. Anu Magdaleno Platelet mean volume (Bld) [Entitic vol] 9.5 fL Normal 9.5-13.5 [facility] Comment on above: Performed By: #### C BC #### [facility] [address] [place] [address] Dr. Anu Magdaleno PLT 121 103/ul Critically low 150-450 [facility] Comment on above: Performed By: #### C BC #### [facility] [address] [place] [address] Dr. Anu Magdaleno RBC 4.43 106/ul Critically low 4.70-6.10 [facility] Comment on above: Performed By: #### C BC #### [facility] [address] [place] [address] Dr. Anu Magdaleno WBC 6.0 103/ul Normal 4.0-11.0 [facility] Comment on above: Performed By: #### C BC #### [facility] [address] [place] [address] Dr. Anu Magdaleno FERRITINon 10-30-2021 Ferritin [Mass/Vol] 137.0 ng/mL Normal 26.0-388.0 [facility] Comment on above: Performed By: #### F ERR, FETIBC, VITB12 #### [facility] [address] [place] [address] Dr. Anu Magdaleno IRON AND TIBCon 10-30-2021 % SATURATION 21.8 % Normal [facility] Comment on above: Performed By: #### F ERR, FETIBC, VITB12 #### [facility] [address] [place] [address] Dr. Anu Magdaleno Iron [Mass/Vol] 67.0 ug/dL Normal 65.0-175.0 [facility] Comment on above: Performed By: #### F ERR, FETIBC, VITB12 #### [facility] [address] [place] [address] Dr. Anu Magdaleno TIBC DIRECT 307.0 ug/dL Normal 250.0-450. 0 [facility] Comment on above: Performed By: #### F ERR, FETIBC, VITB12 #### [facility] [address] [place], [place] [address] Dr. Anu Magdaleno VITAMIN B12on 10-30-2021 Cobalamin (Vitamin B12) [Mass/Vol] 385.0 pg/mL Normal 193.0-986. 0 [facility] Comment on above: Performed By: #### F ERR, FETIBC, VITB12 #### [facility] [address] [place], [place] [address] head/brain wo conon 08-26 CT head/brain wo con [facility] [employer] [address] [place] [address] CT Scan Report Signed Patient: Tammi Patel MR#: [id number] : 1935 Acct:[id number] Age/Sex: 85 / M ADM Date: 08/26/21 Loc: CT Room: Type: [facility] Attending Dr: Angel Cotton MD Ordering [...] Jericho Esparza M.D.08/26/2021 10:23 AM Dictation Location: [place] [address] Transcribed By: [facility] 08/26/21 1023 Dictated By: Jericho Esparza II, MD 08/26/21 1019 Signed By: 08/26/21 1023 [facility] CBC AUTO DIFFon 08-01-2021 BASO # 0.1 103/ul Normal 0.0-0.1 [facility] Comment on above: Performed By: #### C BC #### [facility] [address] [place] [address] Dr. Anu Magdaleno Basophils/100 WBC (Bld) 0.7 % Normal 0.2-2.0 [facility] Comment on above: Performed By: #### C BC #### [facility] [address] [place] [address] Dr. Anu Magdaleno EO # 0.3 103/ul Normal 0.0-0.7 [facility] Comment on above: Performed By: #### C BC #### [facility] [address] [place] [address] Dr. Anu Magdaleno Eosinophils/100 WBC (Bld) 3.4 % Normal 0.9-7.0 [facility] Comment on above: Performed By: #### C BC #### [facility] [address] [place] [address] Dr. Anu Magdaleno Erythrocyte distribution width (RBC) [Ratio] 13.5 % Normal 11.0-15.0 [facility] Comment on above: Performed By: #### C BC #### [facility] [address] [place] [address] Dr. Anu Magdaleno Hematocrit (Bld) [Volume fraction] 40.7 % Critically low 42.0-54.0 [facility] Comment on above: Performed By: #### C BC #### [facility] [address] [place] [address] Dr. Anu Magdaleno Hemoglobin (Bld) [Mass/Vol] 13.1 g/dL Critically low 14.0-18.0 [facility] Comment on above: Performed By: #### C BC #### [facility] [address] [place] [address] Dr. Anu Magdaleno IG # 0.05 10e3/ul Critically high 0.00-0.03 [facility] Comment on above: Performed By: #### C BC #### [facility] [address] [place] [address] Dr. Anu Magdaleno IG % 0.6 % Critically high 0.0-0.5 [facility] Comment on above: Performed By: #### C BC #### [facility] [address] [place] [address] Dr. Anu Magdaleno LYMPH # 0.8 103/ul Critically low 1.2-3.8 [facility] Comment on above: Performed By: #### C BC #### [facility] [address] [place] [address] Dr. Anu Magdaleno Lymphocytes/100 WBC (Bld) 9.6 % Critically low 20.5-60.0 [facility] Comment on above: Performed By: #### C BC #### [facility] [address] [place] [address] Dr. Anu Magdaleno MANUAL DIFF REQ NO Normal [facility] Comment on above: Performed By: #### C BC #### [facility] [address] [place] [address] Dr. Anu Magdaleno MCH (RBC) [Entitic mass] 29.0 pg Normal 25.9-34.0 [facility] Comment on above: Performed By: #### C BC #### [facility] [address] [place] [address] Dr. Anu Magdaleno MCHC (RBC) [Mass/Vol] 32.2 g/dL Normal 29.9-35.2 [facility] Comment on above: Performed By: #### C BC #### [facility] [address] [place] [address] Dr. Anu Magdaleno MCV (RBC) [Entitic vol] 90.0 fL Normal 80.0-94.0 [facility] Comment on above: Performed By: #### C BC #### [facility] [address] [place] [address] Dr. Anu Magdaleno MONO # 0.5 103/ul Normal 0.3-0.8 [facility] Comment on above: Performed By: #### C BC #### [facility] [address] [place] [address] Dr. Anu Magdaleno Monocytes/100 WBC (Bld) 6.4 % Normal 1.7-12.0 [facility] Comment on above: Performed By: #### C BC #### [facility] [address] [place] [address] Dr. Anu Magdaleno NEUT # 6.4 103/ul Normal 1.4-6.5 [facility] Comment on above: Performed By: #### C BC #### [facility] [address] [place] [address] Dr. Anu Magdaleno Neutrophils/100 WBC (Bld) 79.3 % Critically high 43.0-75.0 [facility] Comment on above: Performed By: #### C BC #### [facility] [address] [place] [address] Dr. Anu Magdaleno Platelet mean volume (Bld) [Entitic vol] 10.0 fL Normal 9.5-13.5 [facility] Comment on above: Performed By: #### C BC #### [facility] [address] [place] [address] Dr. Anu Magdaleno PLT 154 103/ul Normal 150-450 [facility] Comment on above: Performed By: #### C BC #### [facility] [address] [place] [address] Dr. Anu Magdaleno RBC 4.52 106/ul Critically low 4.70-6.10 [facility] Comment on above: Performed By: #### C BC #### [facility] [address] [place] [address] [address] Anu Magdaleno WBC 8.0 103/ul Normal 4.0-11.0 [facility] Comment on above: Performed By: #### C BC #### [facility] [address] [place] [address] [address] Anu Magdaleno LIPID PROFILEon 08-01-2021 CHOL-HDL RATIO NORM SEE BELOW Normal [facility] Comment on above: Result Comment: 3.3 - 4.4 LOW RISK 4.4 - 7.1 AVERAGE RISK 7.1 - 11.0 MODERATE RISK >11.0 HIGH RISK Performed By: #### F ERR, FETIBC, VITB12 #### [facility] [address] [place] [address] Dr. Anu Magdaleno Cholesterol [Mass/Vol] 102 mg/dL Normal <=200 [facility] Comment on above: Performed By: #### F ERR, FETIBC, VITB12 #### [facility] [address] [place] [address] [address] Anu Magdaleno Cholesterol in HDL [Mass/Vol] 50 mg/dL Normal 40-60 [facility] Comment on above: Performed By: #### F ERR, FETIBC, VITB12 #### [facility] [address] [place] [address] [address] Anu Magdaleno Cholesterol in LDL [Mass/Vol] 34.6 mg/dL Normal [facility] Comment on above: Performed By: #### F ERR, FETIBC, VITB12 #### [facility] [address] [place] [address] Dr. Anu Magdaleno Cholesterol.total/ Cholesterol in HDL [Mass ratio] 2.0 {ratio} Normal [facility] Comment on above: Performed By: #### F ERR, FETIBC, VITB12 #### [facility] [address] [place] [address] [address] Anu Magdaleno HDL NORMAL > or = 60 mg/dl - LO W CARDIOVASCULAR RISK <40 mg/dl - HIGH CARDIOVASCULAR RISK Normal [facility] Comment on above: Performed By: #### F ERR, FETIBC, VITB12 #### [facility] [address] [place] [address] Dr. Anu Magdaleno LDL CALC NORMAL SEE BELOW Normal [facility] Comment on above: Result Comment: <100 mg/dl OPTIMAL 100 - 129 mg/dl NEAR OR ABOVE OPTIMAL 130 - 159 mg/dl BORDERLINE HIGH 160 - 189 mg/dl HIGH >190 mg/dl VERY HIGH Performed By: #### F ERR, FETIBC, VITB12 #### [facility] [address] [place] [address] Dr. Anu Magdaleno Triglyceride [Mass/Vol] 87 mg/dL Normal <=150 [facility] Comment on above: Performed By: #### F ERR, FETIBC, VITB12 #### [facility] [address] [place] [address] Dr. Anu Magdaleno VLDL CALC 17.4 mg/dL Normal [facility] Comment on above: Performed By: #### F ERR, FETIBC, VITB12 #### [facility] [address] [place] [address] Dr. Anu Magdaleno PROF CHEM 8 (BAS METB)on Anion gap [Moles/Vol] 13.8 mmol/L Normal [facility] Comment on above: Performed By: #### F ERR, FETIBC, VITB12 #### [facility] [address] [place] [address] Dr. Anu Magdaleno Calcium [Mass/Vol] 9.0 mg/dL Normal 8.5-10.1 [facility] Comment on above: Performed By: #### F ERR, FETIBC, VITB12 #### [facility] [address] [place] [address] Dr. Anu Magdaleno Chloride [Moles/Vol] 100 mmol/L Normal 98-107 [facility] Comment on above: Performed By: #### F ERR, FETIBC, VITB12 #### [facility] [address] [place] [address] Dr. Anu Magdaleno CO2 [Moles/Vol] 28.4 mmol/L Normal 21.0-32.0 [facility] Comment on above: Performed By: #### F ERR, FETIBC, VITB12 #### [facility] [address] [place] [address] [address] Anu Magdaleno Creatinine [Mass/Vol] 1.31 mg/dL Critically high 0.70-1.30 [facility] Comment on above: Performed By: #### F ERR, FETIBC, VITB12 #### [facility] [address] [place] [address] [address] Anu Magdaleno EGFR-AF DANISH >60 Normal >=60 [facility] Comment on above: Performed By: #### F ERR, FETIBC, VITB12 #### [facility] [address] [place] [address] [address] Anu Magdaleno EGFR-NON AF DANISH 52 mL/min/1.73m2 Critically low >=60 [facility] Comment on above: Performed By: #### F ERR, FETIBC, VITB12 #### [facility] [address] [place] [address] [address] Anu Magdaleno Glucose [Mass/Vol] 118 mg/dL Critically high 74-106 [facility] Comment on above: Performed By: #### F ERR, FETIBC, VITB12 #### [facility] [address] [place] [address] [address] Anu Magdaleno Potassium [Moles/Vol] 4.2 mmol/L Normal 3.5-5.1 [facility] Comment on above: Performed By: #### F ERR, FETIBC, VITB12 #### [facility] [address] [place] [address] [address] Anu Magdaleno Sodium [Moles/Vol] 138 mmol/L Normal 136-145 [facility] Comment on above: Performed By: #### F ERR, FETIBC, VITB12 #### [facility] [address] [place] [address] [address] Anu Magdaleno Urea nitrogen [Mass/Vol] 21.0 mg/dL Critically high 7.0-18.0 [facility] Comment on above: Performed By: #### F ERR, FETIBC, VITB12 #### [facility] [address] [place] [address] Dr. Anu Magdaleno Urea nitrogen/Creatinin e [Mass ratio] 16.0 mg/mg Normal [facility] Comment on above: Performed By: #### F ERR, FETIBC, VITB12 #### [facility] [address] [place] [address] Dr. Anu Magdaleno SGOTon 08-01-2021 AST [Catalytic activity/Vol] 13 U/L Critically low 15-37 [facility] Comment on above: Performed By: #### F ERR, FETIBC, VITB12 #### [facility] [address] [place] [address] Dr. Anu Magdaleno Basic Metabolic Panelon Calcium [Mass/Vol] 9.0 mg/dL Normal 8.2-10.2 [facility] Comment on above: Performed By: #### C BC, PT, PTT, BMP #### [facility] [address] [place] [address] [place] Chloride [Moles/Vol] 104 mmol/L Normal 95-114 [facility] Comment on above: Performed By: #### C BC, PT, PTT, BMP #### [facility] [address] [place] [address] [place] CO2 [Moles/Vol] 23.8 mmol/L Normal 22.0-30.0 [facility] Comment on above: Performed By: #### C BC, PT, PTT, BMP #### [facility] [address] [place] [address] [place] Creatinine [Mass/Vol] 1.26 mg/dL Normal 0.64-1.27 [facility] Comment on above: Performed By: #### C BC, PT, PTT, BMP #### [facility] [address] [place] [address] [place] Creatinine Clr Calc Pharmacy 44.26 Normal [facility] Comment on above: Result Comment: PERF ORMED BY: [place] [address] 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 Performed By: #### C BC, PT, PTT, BMP #### [address] Estimated GFR ( Marzena > 60 [facility] Comment on above: Result Comment: GFR estimated reference range: According to KDOQI guidelines, <60 ml/min/1.73m2 is sufficient to diagnose a patient with chronic kidney disease. Performed By: #### C BC, PT, PTT, BMP #### [address] Estimated GFR (Non- Am 54 [facility] Comment on above: Performed By: #### C BC, PT, PTT, BMP #### [address] Glucose [Mass/Vol] 105 mg/dL High 70-100 [facility] Comment on above: Result Comment: Alpha om Glucose Reference Range is dependent on time and content of last meal. Glucose of more than 200 mg/dL in a nonstressed, ambulatory subject supports the diagnosis of Diabetes Mellitus. ADA recommended reference range Performed By: #### C BC, PT, PTT, BMP #### [address] Potassium [Moles/Vol] 4.2 mmol/L Normal 3.5-5.1 [facility] Comment on above: Performed By: #### C BC, PT, PTT, BMP #### [address] Sodium [Moles/Vol] 137 mmol/L Normal 136-146 [facility] Comment on above: Performed By: #### C BC, PT, PTT, BMP #### [address] Urea nitrogen [Mass/Vol] 22 mg/dL Normal 9-23 [facility] Comment on above: Performed By: #### C BC, PT, PTT, BMP #### [address] Coagulation Profileon 2021 aPTT Coag (Bld) [Time] 29.6 s Normal 25.1-36.5 [facility] Comment on above: Result Comment: PERF ORMED BY: [place] [address] 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 Performed By: #### C BC, PT, PTT, BMP #### [address] INR Coag (PPP) [Relative time] 1.1 {INR} Normal [facility] Comment on above: Result Comment: INR [...] #### C BC, PT, PTT, BMP #### [address] PT Coag (PPP) [Time] 12.2 s Normal 9.0-12.9 [facility] Comment on above: Performed By: #### C BC, PT, PTT, BMP #### [address] Complete Blood Count Auto Di ffon 07-19-2021 Basophils (Bld) [#/Vol] 0.1 10*3/uL Normal 0.0-0.2 [facility] Comment on above: Result Comment: PERF ORMED BY: [place] [address] 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 Performed By: #### C BC, PT, PTT, BMP #### [address] Basophils/100 WBC (Bld) 0.9 % Normal . [facility] Comment on above: Performed By: #### C BC, PT, PTT, BMP #### [address] Eosinophils (Bld) [#/Vol] 0.4 10*3/uL Normal 0.0-0.45 [facility] Comment on above: Performed By: #### C BC, PT, PTT, BMP #### [address] Eosinophils/100 WBC (Bld) 7.6 % Normal . [facility] Comment on above: Performed By: #### C BC, PT, PTT, BMP #### [address] Erythrocyte distribution width (RBC) [Ratio] 14.5 % Normal 12.0-14.8 [facility] Comment on above: Performed By: #### C BC, PT, PTT, BMP #### [address] Hematocrit (Bld) [Volume fraction] 37.6 % Low 38.8-50.0 [facility] Comment on above: Performed By: #### C BC, PT, PTT, BMP #### [address] Hemoglobin (Bld) [Mass/Vol] 13.3 g/dL Normal 13.0-17.0 [facility] Comment on above: Performed By: #### C BC, PT, PTT, BMP #### [address] Lymphocytes (Bld) [#/Vol] 1.0 10*3/uL Normal 1.00-4.8 [facility] Comment on above: Performed By: #### C BC, PT, PTT, BMP #### [address] Lymphocytes/100 WBC (Bld) 17.4 % Normal . [facility] Comment on above: Performed By: #### C BC, PT, PTT, BMP #### [address] MCH (RBC) [Entitic mass] 30.1 pg Normal 27.5-35.2 [facility] Comment on above: Performed By: #### C BC, PT, PTT, BMP #### [address] MCV (RBC) [Entitic vol] 84.9 fL Normal 83.5-101 [facility] Comment on above: Performed By: #### C BC, PT, PTT, BMP #### [address] Mean Corpuscular HGB Conc 35.4 g/dL Normal 32.5-35.6 [facility] Comment on above: Performed By: #### C BC, PT, PTT, BMP #### [address] Monocytes (Bld) [#/Vol] 0.5 10*3/uL Normal 0.0-0.8 [facility] Comment on above: Performed By: #### C BC, PT, PTT, BMP #### [address] Monocytes/100 WBC (Bld) 9.6 % Normal . [facility] Comment on above: Performed By: #### C BC, PT, PTT, BMP #### [address] Neutrophils (Bld) [#/Vol] 3.5 10*3/uL Normal 1.8-7.7 [facility] Comment on above: Performed By: #### C BC, PT, PTT, BMP #### [address] Neutrophils/100 WBC (Bld) 64.5 % Normal . [facility] Comment on above: Performed By: #### C BC, PT, PTT, BMP #### [address] Nucleated RBC/100 WBC (Bld) [Ratio] 0.0 % Normal 0-0.5 [facility] Comment on above: Performed By: #### C BC, PT, PTT, BMP #### [address] [place] [address] [place] Platelet mean volume (Bld) [Entitic vol] 8.2 fL Normal 6.6-10.1 [facility] Comment on above: Performed By: #### C BC, PT, PTT, BMP #### [facility] [address] Platelets (Bld) [#/Vol] 119 10*3/uL Low 150-450 [facility] Comment on above: Performed By: #### C BC, PT, PTT, BMP #### [address] RBC (Bld) [#/Vol] 4.43 10*6/uL Normal 3.90-5.60 [facility] Comment on above: Performed By: #### C BC, PT, PTT, BMP #### [address] WBC (Bld) [#/Vol] 5.5 10*3/uL Normal 4.5-11.0 [facility] Comment on above: Performed By: #### C BC, PT, PTT, BMP #### [address] ABO/Rh Retypeon 07-18-2021 ABO/RH Recheck Result Positive Normal [facility] Comment on above: Result Comment: PERF ORMED BY: [place] [address] 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 Type and Screenon 07-18-2021 ABO and Rh group Nom (Bld) Blood group O Rh(D) positive Normal [facility] Comment on above: Order Comment: Comme nt FOR SURGERY 5/6 Basic Metabolic Panelon Calcium [Mass/Vol] 8.8 mg/dL Normal 8.2-10.2 [facility] Comment on above: Performed By: #### C BC, PT, PTT, BMP #### [address] Chloride [Moles/Vol] 102 mmol/L Normal 95-114 [facility] Comment on above: Performed By: #### C BC, PT, PTT, BMP #### [facility] [address] [place] [address] CO2 [Moles/Vol] 23.7 mmol/L Normal 22.0-30.0 [facility] Comment on above: Performed By: #### C BC, PT, PTT, BMP #### [facility] [address] [place] [address] Creatinine [Mass/Vol] 1.33 mg/dL High 0.64-1.27 [facility] Comment on above: Performed By: #### C BC, PT, PTT, BMP #### [address] Creatinine Clr Calc Pharmacy 45.37 [facility] Comment on above: Result Comment: PERF ORMED BY: [place] [address] 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 Performed By: #### C BC, PT, PTT, BMP #### [address] Estimated GFR ( Marzena > 60 [facility] Comment on above: Result Comment: GFR estimated reference range: According to KDOQI guidelines, <60 ml/min/1.73m2 is sufficient to diagnose a patient with chronic kidney disease. Performed By: #### C BC, PT, PTT, BMP #### [facility] [address] [place] [address] Estimated GFR (Non- Am 51 [facility] Comment on above: Performed By: #### C BC, PT, PTT, BMP #### [facility] [address] [place] [address] Glucose [Mass/Vol] 98 mg/dL Normal 70-100 [facility] Comment on above: Result Comment: Alpha Glucose Reference Range is dependent on time and content of last meal. Glucose of more than 200 mg/dL in a nonstressed, ambulatory subject supports the diagnosis of Diabetes Mellitus. ADA recommended reference range Performed By: #### C BC, PT, PTT, BMP #### [facility] [address] Potassium [Moles/Vol] 4.2 mmol/L Normal 3.5-5.1 [facility] Comment on above: Performed By: #### C BC, PT, PTT, BMP #### [facility] [address] Sodium [Moles/Vol] 136 mmol/L Normal 136-146 [facility] Comment on above: Performed By: #### C BC, PT, PTT, BMP #### [facility] [address] Urea nitrogen [Mass/Vol] 25 mg/dL High 9- [facility] Comment on above: Performed By: #### C BC, PT, PTT, BMP #### [address] head/brain wo conon 07-16 CT head/brain wo con [facility] Main [employer] [address] [place] [address] CT Scan Report Signed Patient: Tammi Patel MR#: [id number] [id number] : 1935 Acct:[id number] Age/Sex: 85 / M ADM Date: 07/15/21 Loc: Room: [address] [place] [address] Type: ADM INOo Attending Dr: Jose Barber [...] Aleks Paredes M.D.07/16/2021 9:22 AM Dictation Location: [place] [address] Transcribed By: [facility] 07/16/21921 Dictated By: Aleks Paredes DO 07/16/21916 Signed By: 07/16/21921 Normal [facility] Basic Metabolic Panelon 05 Calcium [Mass/Vol] 9.1 mg/dL Normal 8.2-10.2 [facility] Comment on above: Performed By: #### C BC, PT, PTT, BMP #### [facility] 1111 [place] [address] [place] Chloride [Moles/Vol] 103 mmol/L Normal 95-114 [facility] Comment on above: Performed By: #### C BC, PT, PTT, BMP #### [facility] 1111 [place] [address] [place] CO2 [Moles/Vol] 25.7 mmol/L Normal 22.0-30.0 [facility] Comment on above: Performed By: #### C BC, PT, PTT, BMP #### [facility] 1111 [place] [address] [place] Creatinine [Mass/Vol] 1.40 mg/dL High 0.64-1.27 [facility] Comment on above: Performed By: #### C BC, PT, PTT, BMP #### [facility] 1111 [place] [phone] [place] Creatinine Clr Calc Pharmacy 43.04 Normal [facility] Comment on above: Result Comment: PERF ORMED BY: [place] [address] 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 Performed By: #### C BC, PT, PTT, BMP #### [address] Estimated GFR ( Marzena 58 [facility] Comment on above: Result Comment: GFR estimated reference range: According to KDOQI guidelines, <60 ml/min/1.73m2 is sufficient to diagnose a patient with chronic kidney disease. Performed By: #### C BC, PT, PTT, BMP #### [address] Estimated GFR (Non- Am 48 [facility] Comment on above: Performed By: #### C BC, PT, PTT, BMP #### [address] Glucose [Mass/Vol] 119 mg/dL High 70-100 [facility] Comment on above: Result Comment: Alpha om Glucose Reference Range is dependent on time and content of last meal. Glucose of more than 200 mg/dL in a nonstressed, ambulatory subject supports the diagnosis of Diabetes Mellitus. ADA recommended reference range Performed By: #### C BC, PT, PTT, BMP #### [address] Potassium [Moles/Vol] 4.1 mmol/L Normal 3.5-5.1 [facility] Comment on above: Performed By: #### C BC, PT, PTT, BMP #### [place] [address] [place] Sodium [Moles/Vol] 139 mmol/L Normal 136-146 [facility] Comment on above: Performed By: #### C BC, PT, PTT, BMP #### [address] Urea nitrogen [Mass/Vol] 24 mg/dL High 9-23 [facility] Comment on above: Performed By: #### C BC, PT, PTT, BMP #### [place] [address] [place] COVID-19 Antigenon 2 COVID-19 Antigen Healthcare Worker?: [...] developed and its performance characteristic determined by [employer] and validated at [facility]. This test has not been FDA [...] for SARS Antigen by TREY PERFORMED BY: [place] [address] 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 Normal [facility] Comment on above: Performed By: #### C BC, PT, PTT, BMP #### [address] COVID-19 FRMCon 07-15-2021 SARS-CoV-2 (COVID-19) RNA RUIZ+probe Ql (Unsp spec) Negative Normal Negative [facility] Comment on above: Order Comment: Healt hcare Worker?: N Result Comment: Testing for SARS-CoV-2 by RT-PCR This test was developed and its performance characteristics determined by [employer] and validated at the [facility]. This test has not been FDA [...] is terminated or revoked sooner. PERFORMED BY: [place] [address] 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 Performed By: #### C BC, PT, PTT, BMP #### [address] head/brain wo conon 07-15 CT head/brain wo con [facility] [place] [address] CT Scan Report Signed Patient: Tammi Patel MR#: [id number] [id number] : 1935 Acct:[id number] Age/Sex: 85 / M ADM Date: 07/15/21 Loc: CT Room: Type: [facility] Attending Dr: Dixie Carroll PA-C Ordering [...] noted, as above. Impression dictated by: Jericho Esparza M.D.07/15/2021 1:43 PM Dictation Location: [place] [address] Transcribed By: [facility] 07/15/21 1343 Dictated By: Jericho Esparza II, MD 07/15/21 1339 Signed By: 07/15/21 1343 Normal [facility] Complete Blood Count Auto Di ffon 07-15-2021 Basophils (Bld) [#/Vol] 0.1 10*3/uL Normal 0.0-0.2 [facility] Comment on above: Result Comment: PERF ORMED BY: [address] [place] [address] 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 Performed By: #### C BC, PT, PTT, BMP #### [address] Basophils/100 WBC (Bld) 1.9 % Normal . [facility] Comment on above: Performed By: #### C BC, PT, PTT, BMP #### [address] Eosinophils (Bld) [#/Vol] 0.3 10*3/uL Normal 0.0-0.45 [facility] Comment on above: Performed By: #### C BC, PT, PTT, BMP #### [address] Eosinophils/100 WBC (Bld) 5.4 % Normal . [facility] Comment on above: Performed By: #### C BC, PT, PTT, BMP #### [address] Erythrocyte distribution width (RBC) [Ratio] 14.3 % Normal 12.0-14.8 [facility] Comment on above: Performed By: #### C BC, PT, PTT, BMP #### [address] Hematocrit (Bld) [Volume fraction] 37.0 % Low 38.8-50.0 [facility] Comment on above: Performed By: #### C BC, PT, PTT, BMP #### [address] Hemoglobin (Bld) [Mass/Vol] 12.9 g/dL Low 13.0-17.0 [facility] Comment on above: Performed By: #### C BC, PT, PTT, BMP #### [address] Lymphocytes (Bld) [#/Vol] 0.8 10*3/uL Low 1.00-4.8 [facility] Comment on above: Performed By: #### C BC, PT, PTT, BMP #### [address] [place] [address] [place] Lymphocytes/100 WBC (Bld) 15.0 % Normal . [facility] Comment on above: Performed By: #### C BC, PT, PTT, BMP #### [address] MCH (RBC) [Entitic mass] 30.0 pg Normal 27.5-35.2 [facility] Comment on above: Performed By: #### C BC, PT, PTT, BMP #### [address] MCV (RBC) [Entitic vol] 85.7 fL Normal 83.5-101 [facility] Comment on above: Performed By: #### C BC, PT, PTT, BMP #### [address] Mean Corpuscular HGB Conc 34.9 g/dL Normal 32.5-35.6 [facility] Comment on above: Performed By: #### C BC, PT, PTT, BMP #### [address] Monocytes (Bld) [#/Vol] 0.4 10*3/uL Normal 0.0-0.8 [facility] Comment on above: Performed By: #### C BC, PT, PTT, BMP #### [address] Monocytes/100 WBC (Bld) 7.3 % Normal . [facility] Comment on above: Performed By: #### C BC, PT, PTT, BMP #### [place] [address] [place] Neutrophils (Bld) [#/Vol] 3.9 10*3/uL Normal 1.8-7.7 [facility] Comment on above: Performed By: #### C BC, PT, PTT, BMP #### [address] Neutrophils/100 WBC (Bld) 70.4 % Normal . [facility] Comment on above: Performed By: #### C BC, PT, PTT, BMP #### [address] Nucleated RBC/100 WBC (Bld) [Ratio] 0.0 % Normal 0-0.5 [facility] Comment on above: Performed By: #### C BC, PT, PTT, BMP #### [address] Platelet mean volume (Bld) [Entitic vol] 8.1 fL Normal 6.6-10.1 [facility] Comment on above: Performed By: #### C BC, PT, PTT, BMP #### [address] Platelets (Bld) [#/Vol] 135 10*3/uL Low 150-450 [facility] Comment on above: Performed By: #### C BC, PT, PTT, BMP #### [address] RBC (Bld) [#/Vol] 4.32 10*6/uL Normal 3.90-5.60 [facility] Comment on above: Performed By: #### C BC, PT, PTT, BMP #### [address] WBC (Bld) [#/Vol] 5.6 10*3/uL Normal 4.5-11.0 [facility] Comment on above: Performed By: #### C BC, PT, PTT, BMP #### [address] ECG 12 lead ECGon 07-15-2021 ECG [address] [facility] Main [employer] [address] [place] [address] Electrocardiograph Report Signed Patient: Tammi Patel MR#: [id number] 867 : 1935 Acct:[id number] Age/Sex: 85 / M ADM Date: 07/15/21 Loc: Room: [address] [place] [address] Type: DIS IN Attending Dr: Jose Barber [...] Signed By Omayra Horowitz MD 07/15/211909 Normal [facility] Partial Thromboplastin Timeo n 07-15-2021 aPTT Coag (Bld) [Time] 31.7 s Normal 25.1-36.5 [facility] Comment on above: Result Comment: PERF ORMED BY: [place] [address] 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 Performed By: #### C BC, PT, PTT, BMP #### [facility] [address] [place] [address] Prothrombin Time INRon 07-15 INR Coag (PPP) [Relative time] 1.0 {INR} Normal [facility] Comment on above: Result Comment: INR [...] #### C BC, PT, PTT, BMP #### [facility] [address] [place] [address] PT Coag (PPP) [Time] 11.4 s Normal 9.0-12.9 [facility] Comment on above: Performed By: #### C BC, PT, PTT, BMP #### [facility] [address] [place] [phone] [facility] Leigh Ag Negativeon 07-16-19 Leigh Ag Negative Negative Normal Negative [facility] Comment on above: Result Comment: This is a duplicate Leigh SARS Antigen (TREY) result to be used for statistical tracking purpose only. PERFORMED BY: [place] [address] 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 Performed By: #### C BC, PT, PTT, BMP #### [address] XR chest 1V portableon 07-15 XR chest 1V portable [facility] [employer] [address] [place] [address] XRay Report Signed Patient: Tammi Patel MR#: [id number] 867 : 1935 Acct:[id number] Age/Sex: 85 / M ADM Date: 07/15/21 Loc: ER Room: Type: [facility] ER Attending Dr: Ordering Provider: Omayra [...] Jericho Esparza M.D.07/15/2021 2:43 PM Dictation Location: [place] [address] Transcribed By: RUBEN 07/15/21 1443 Dictated By: Jericho Esparza II, MD 07/15/21 144 Signed By: 07/15/21 1443 [facility] Office Visit (Cardiology)on 04-09-2021 Follow-up visit Diagnoses/Problems [...] Status:Active; Requested for:09Apr2021; Lipid Panel; Status:Active; Requested for:[id number]; Overweight with body mass index (BMI) of 27 to 27.9 in adult Healthy Weight Tips; Status:Complete; Done: 09Apr2021 SocHx: Former smoker Tobacco Use Screening; Status:Complete; Done: 09Apr2021 Patient Instructions By signing my name below, I, Jenny Oakes LPN, Scribe, attest that this documentation has been prepared under the direction and in the presence of Dr. Kaiser Gómez MD. All medical record entries made by the Jorge Luisibe were at my direction and personally dictated [...] 09Apr2021 11:40AM Heart Rate72, L Brachial Artery Cfsldfsf876, LUE, Sitting Ivkkayaga72, LUE, Sitting Height5 ft 10 in Bkhzdv610 lb BMI Jjpgdpsyra44.12 kg/m2 BSA Calculated2.04 Tobacco Useb) No Fall Screeninga) No falls within the last year Physical Exam Constitutional: alert and in no acute distress. Eyes: no erythema, swelling or discharge from the eye . Neck: neck is supple, symme (more content not included)... Normal Here@ Networks Tobacco Screening.on 022 Fall risk assessment a) No falls within the last year [facility] [employer] DO Work Phone: Tobacco use status [facility]PHS b) No [facility] [employer] 250 DO Work Phone: [facility] CARDIAC STRESS/REST INJE CTIONon 08-31-2018 [facility] CARDIAC STRESS/REST INJECTION Patient Name: TAMMI PATEL STUDY: Performing facility: [facility], [address] [place] [address], [address], [place] [id number] [employer] Desktop Support: Pete DELA CRUZ NP PCP: Dr. Anthony MARTINEZ INDICATION: Abnormal EKG; HISTORY: Gender: M; Age: 82 y/o ; Height: 180.34 cm; Weight: 89.1136009 kg. Abnormal EKG; Palpitations; SOB; Fatigue; Family HX CAD; Quit smoking years ago. COMPARISON: Previous nuclear testing completed at [facility]. ACCESSION NUMBER(S): [id number]; [id number]; [id number] ORDERING CLINICIAN: LINDA HOROWITZ NP TECHNIQUE: ONE [...] 43%. Electronically signed by: NEO MATHEW MD [facility] CNOVSPon 09-02-2017 CNOVSP Visit (SP) Office (HEMACL) TAMMI HERRMANN ([id number]) 1935 [facility] Time Provider Department09/02/17 1:00 PM DONOVAN CASTORENA HEMISIDORO During your visit today, we recorded the following information about you: Temperature Pulse Respiration Blood pressure 97.6 degrees 70/minute 18/minute 121/60 Weight Height 86.7 kg 1.753 Corky Castorena DO 09/17/2017 9:27 AM SignedPATIENT NAME: Tammi Bustamante: [id number] PHYSICIAN: Ben Jiménez MD417 [facility] [id number] CARE PHYSICIAN: Patric Martinez MDOTHER PHYSICIANS:CHIEF COMPLAINT: [...] 09/02/17-COMP METABOLIC PANEL-CBC + DIFF (FOR REMOTE [facility] USE)-PROTEIN ELECTROPHORESIS W/INTERP-MONOCLONAL PROT BLD W/INTERP-KAPPA/PLAZA,FREE,SER Return [...] [facility] apparently was scheduled for another [...] nothing new or out of the ordinary. Ggs571 today No more problems with kidney stones.September [...] 1 tablet by mouth once daily.Vit C-Vit L-Hvhgvj-Jgh-OM-3 (OCUVITE) 439-76-4-150 fm-rwds-sb-mg cap Take bymouth once daily.tamsulosin ER (FLOMAX) [...] to palpation. No flank tenderness.Rod Castorena D.O.Medical OncologistOhio State Health System Cancer [place], [place]Referring Provider: BEN JIMÉNEZ [[id number]]Allergies As of Date: 09/02/2017(No Known Allergies)Date Reviewed: 09/02/2017Reviewed by: Amy Horowitz - Fully AssessedReason for Visit: Thrombocytopenia [603] Cmt: follow upPrimary Visit Diagnosis:Thrombocytopenia (HCC) [D69.6]Order(s):COMP METABOLIC PANEL [SQCMP] Order #: [id number] FUTURE CBC + DIFF (FOR REMOTE [facility] USE) [SQRCBCDF] Order #: [id number] FUTURE PROTEIN ELECTROPHORESIS W/INTERP [SQSEPG] Order #: [id number] FUTURE MONOCLONAL PROT BLD W/INTERP [SQMPASRM] Order #: [id number] FUTURE KAPPA/PLAZA,FREE,SER [SQKLFRS] Order #: [id number] FUTUREDisposition: Return if symptoms worsen or fail [...] by DONOVAN CASTORENA DO on 09/17/17 Normal [facility] Comp Metabolic Panelon 09-02 Alanine aminotransferase (ALT) 14 U/L Normal 10-54 [facility] Comment on above: Performed By: #### C DIPIKA, TREVONRS, SEPG, MPASRM ####[facility] [place], [place] [phone] Albumin 4.2 g/dL Normal 3.9-4.9 [facility] Comment on above: Performed By: #### C DIPIKA, TREVONRS, SEPG, MPASRM ####[facility] [place] [phone] Alkaline phosphatase (ALP) 57 U/L Normal 36-108 [facility] Comment on above: Performed By: #### C MP, KLFRS, SEPG, MPASRM ####[facility]CM[address] [place] [phone] Anion gap 16 mmol/L Normal 9-18 [facility] Comment on above: Performed By: #### C MP, KLFRS, SEPG, MPASRM ####[place] [address] [address] [phone] Aspartate aminotransferase (AST) 20 U/L Normal 14-40 [facility] Comment on above: Performed By: #### C MP, KLFRS, SEPG, MPASRM ####[address] [phone] Bilirubin (total) 0.9 mg/dL Normal 0.2-1.3 [facility] Comment on above: Performed By: #### C MP, KLFRS, SEPG, MPASRM ####[place] [address] [address] [place] [phone] Calcium 9.5 mg/dL Normal 8.5-10.2 [facility] Comment on above: Performed By: #### C MP, KLFRS, SEPG, MPASRM ####[facility] [place] [phone] Chloride 100 mmol/L Normal 97-105 [facility] Comment on above: Performed By: #### C MP, KLFRS, SEPG, MPASRM ####[place] [address]CM[address] [place] [phone] CO2 22 mmol/L Normal 22-30 [facility] Comment on above: Performed By: #### C MP, KLFRS, SEPG, MPASRM ####[facility] [place], [place] [phone] Creatinine 1.31 mg/dL High 0.73-1.22 [facility] Comment on above: Performed By: #### C DIPIKA, TREVONRS, SEPG, MPASRM ####[facility] [place], [place] [phone] eGFR (non-black) 53 . Normal [facility] Comment on above: Result Comment: eGFR (Estimated [...] reflect actual GFR. Performed By: #### C DIPIKA, KLFRS, SEPG, MPASRM ####[place] [address] [place], [place] [phone] eGFR (non-black) mL/min/{1.73_m2} Normal [facility] Comment on above: Performed By: #### C DIPIKA, KLFRS, SEPG, MPASRM ####[address] [phone] Glucose mass conc 159 mg/dL High 74-99 [facility] Comment on above: Result Comment: The [place] Diabetes Association (ADA) provides guidance for cutoff [...] Standards of Medical Care in Diabetes 2016, [place] Diabetes Association. Diabetes Care. 2016.39(Suppl 1). Performed By: #### C MP, KLFRS, SEPG, MPASRM ####[facility]CB[address] [place], [place] [phone] Potassium molar conc 5.0 mmol/L Normal 3.7-5.1 [facility] Comment on above: Performed By: #### C MP, KLFRS, SEPG, MPASRM ####[facility]CBenton [place], [place] [phone] Protein 6.3 g/dL Normal 6.3-8.0 [facility] Comment on above: Performed By: #### C MP, KLFRS, SEPG, MPASRM ####[place] [address] [address]CB[address] [place], [place] [phone] Sodium 138 mmol/L Normal 136-144 [facility] Comment on above: Performed By: #### C MP, KLFRS, SEPG, MPASRM ####[facility]CB[address] [place], [place] [phone] Urea nitrogen 18 mg/dL Normal 9-24 [facility] Comment on above: Performed By: #### C MP, KLFRS, SEPG, MPASRM ####[facility]CB[address] [place], [place] [phone] [place]/Plaza,Free,Seron 2017 K/L Ratio, Serum 2.09 High 0.26-1.65 [facility] Comment on above: Performed By: #### C MP, KLFRS, SEPG, MPASRM ####[facility]CB[address] [place], [place] [phone] [place], Free, Serum 24.7 mg/L High 3.30-19.40 [facility] Comment on above: Result Comment: Rare ly, increased serum free light chains values may not be detected due to antigen excess phenomenon. Results should always be correlated with other laboratory results and clinical findings. Performed By: #### C MP, KLFRS, SEPG, MPASRM ####[place] [address] AveCMeredith [place] [phone] Lambda, Free, Serum 11.8 mg/L Normal 5.7-26.3 [facility] Comment on above: Result Comment: Rare ly, increased serum free light chains values may not be detected due to antigen excess phenomenon. Results should always be correlated with other laboratory results and clinical findings. Performed By: #### C MP, KLFRS, SEPG, MPASRM ####[address] [phone] Monoclonl Protein,Blon 09-02 MPA Chinmay/Ledezma Ratio 1.75 Normal 1-3 [facility] Comment on above: Performed By: #### C MP, KLFRS, SEPG, MPASRM ####[phone] MPA Result No M protein is identified. Normal No M protein is identified . [facility] Comment on above: Performed By: #### C MP, KLFRS, SEPG, MPASRM ####[address]CMeredith [address] [phone] MPA Serum IgA 164 mg/dL Normal 78-391 [facility] Comment on above: Performed By: #### C MP, KLFRS, SEPG, MPASRM ####[place] [address]CM[address] [place] [phone] MPA Serum IgG 602 mg/dL Low 717-1411 [facility] Comment on above: Performed By: #### C MP, KLFRS, SEPG, MPASRM ####[place] [address] AveCM[address] [place] [phone] MPA Serum IgM 65 mg/dL Normal 53-334 [facility] Comment on above: Performed By: #### C MP, KLFRS, SEPG, MPASRM ####[facility] [address] [place], [place] [phone] Serum [place] 498 mg/dL Low 534-1267 [facility] Comment on above: Performed By: #### C MP, KLFRS, SEPG, MPASRM ####[facility] [address] AvAtl[place], [place] [phone] Serum Lambda 285 mg/dL Normal 253-653 [facility] Comment on above: Performed By: #### C MP, KLFRS, SEPG, MPASRM ####[facility]Atl[place], [place] [phone] Staff Review Reviewed by Aquilino Hendricks MD ([id number]) Normal [facility] Comment on above: Performed By: #### C MP, KLFRS, SEPG, MPASRM ####[facility] [address] [place], [place] [phone] PROGRESSon 09-02-2017 PROGRESS HNO ID: [id number] thor: Donovan Aquino: (none)Author Type: PhysicianType: Progress NotesFiled: 09/17/2017 9:27 AMNote Text:PATIENT NAME: Tammi Bustamante: [id number] PHYSICIAN: Ben Jiménez MD[address] [facility] [id number] CARE PHYSICIAN: Patric Martinez MDOTHER PHYSICIANS:CHIEF COMPLAINT: [...] 09/02/17-COMP METABOLIC PANEL-CBC + DIFF (FOR REMOTE [facility] USE)-PROTEIN ELECTROPHORESIS W/INTERP-MONOCLONAL PROT BLD W/INTERP-KAPPA/PLAZA,FREE,SER Return [...] 1 tablet by mouth once daily.Vit C-Vit P-Bdugwa-Nud-OM-3 (OCUVITE) 535-73-0-150 zn-xexg-de-mg cap Takeby mouth once daily.tamsulosin ER (FLOMAX) [...] to palpation. No flank tenderness.Rod Castorena D.O.Medical OncologistOhio State Health System [facility] [place], [place] Normal [facility] Protein Electrophor.on 09-02 Albumin 3.74 g/dL Normal 3.37-4.23 [facility] Comment on above: Performed By: #### C DIPIKA, TREVONRS, SEPG, MPASRM ####[facility] [address] [place], [place] [phone] Alpha 1 Globulin 0.22 gm/dL Normal 0.18-0.31 [facility] Comment on above: Performed By: #### C MP, KLFRS, SEPG, MPASRM ####[facility]CMeredith [place] [phone] Alpha 2 Globulin 0.72 gm/dL Normal 0.52-0.97 [facility] Comment on above: Performed By: #### C MP, KLFRS, SEPG, MPASRM ####[address] [place] [phone] Beta Globulin 0.89 gm/dL Normal 0.84-1.36 [facility] Comment on above: Performed By: #### C MP, KLFRS, SEPG, MPASRM ####[address] [place] [phone] Gamma Globulin 0.73 gm/dL Normal 0.70-1.44 [facility] Comment on above: Performed By: #### C MP, KLFRS, SEPG, MPASRM ####[place] [phone] Interpretation SEE COMMENT Normal [facility] Comment on above: Result Comment: No d efinitive M protein is identified on protein electrophoresis. Performed By: #### C MP, KLFRS, SEPG, MPASRM ####[place] [phone] M Protein Location N/A Normal [facility] Comment on above: Performed By: #### C MP, KLFRS, SEPG, MPASRM ####[place] [phone] M Dhiraj Concentratn 0.00 gm/dL Normal 0.00 [facility] Comment on above: Performed By: #### C MP, KLFRS, SEPG, MPASRM ####[place] [phone] SPE Staff Review Reviewed by Aquilino Hendricks MD ([id number]) Normal [facility] Comment on above: Performed By: #### C MP, KLFRS, SEPG, MPASRM ####[facility] [id number] [place], [place] [id number] Total Protein, SPE 6.3 g/dL Normal 6.0-8.4 [facility] Comment on above: Performed By: #### C MP, KLFRS, SEPG, MPASRM ####[facility] [id number] [place], [place] [id number] Remote CBCDIF (for [facility] use o nly)on 09-02-2017 Abs Baso 0.03 k/uL Normal 0.00-0.10 [facility] Abs Ballard 0.49 k/uL Normal 0.00-0.86 [facility] Abs Neut 4.04 k/uL Normal 1.45-7.50 [facility] Basophils/100 WBC Auto (Bld) 0.5 % Normal [facility] Eosinophils 0.36 10*3/uL Normal 0.00-0.45 [facility] Eosinophils/100 leukocytes 5.8 % Normal [facility] Erythrocyte distribution width Auto Ratio (RBC) 13.4 % Normal 11.5-15.0 [facility] Erythrocytes (RBC) 4.86 10*6/uL Normal 4.20-6.00 [facility] Hematocrit (HCT) 42.4 % Normal 39.0-51.0 [facility] Hemoglobin mass conc (Bld) 14.9 g/dL Normal 13.0-17.0 [facility] Lymphocytes 1.24 10*3/uL Normal 1.00-4.00 [facility] Lymphocytes/100 leukocytes 20.1 % Normal [facility] MCH 30.7 pG Normal 26.0-34.0 [facility] MCHC mass conc (RBC) 35.1 g/dL Normal 30.5-36.0 [facility] MCV 87.2 fL Normal 80.0-100.0 [facility] Monocytes/100 leukocytes 8.0 % Normal [facility] Neutrophils/100 WBC Auto (Bld) 65.6 % Normal [facility] Platelet mean volume (PMV) 10.2 fL Normal 9.0-12.7 [facility] Platelets 143 10*3/uL Low 150-400 [facility] WBC (Leukocytes) 6.16 10*3/uL Normal 3.70-11.00 [facility] Vital Signs Date Time Vital Sign Value Performing Clinician Facility 02-16-2023 10:43-0500 Blood Pressure Location Jourdan URBINA [facility] 02-16-2023 10:43-0500 Diastolic blood pressure 60 mm[Hg] Jourdan URBINA [facility] 02-16-2023 10:43-0500 Heart rate 62 /min Jourdan URBINA [facility] 02-16-2023 10:43-0500 Respiratory rate 16 /min Jourdan URBINA [facility] 02-16-2023 10:43-0500 Systolic blood pressure 105 mm[Hg] Jourdan URBINA [facility] 02-12-2023 11:30-0500 Body height 180.34 cm Wilder Ball Other [employer] Other 02-12-2023 11:30-0500 Body mass index (BMI) [Ratio] 26.02 kg/m2 Wilder Ball Other [employer] Other 02-12-2023 11:30-0500 Body weight 84.64 kg Wilder Ball Other [employer] Other 02-12-2023 11:30-0500 Diastolic blood pressure 74 mm[Hg] Wilder Ball Other [employer] Other 02-12-2023 11:30-0500 Respiratory rate 12 /min Wilder Ball Other [employer] Other 02-12-2023 11:30-0500 Systolic blood pressure 119 mm[Hg] Wilder Ball Other [employer] Other 01-26-2023 09:18-0500 Body height 177.8 cm Kaiser Gómez MD Work Phone: [facility] 01-26-2023 09:18-0500 Body mass index (BMI) [Ratio] 26.69 kg/m2 Kaiser Gómez MD Work Phone: [facility] 01-26-2023 09:18-0500 Body weight 84.37 kg Kaiser Gómez MD Work Phone: [facility] 01-26-2023 09:18-0500 Diastolic blood pressure 86 mm[Hg] Kaiser Gómez MD Work Phone: [facility] 01-26-2023 09:18-0500 Heart rate 78 /min Kaiser Gómez MD Work Phone: [facility] 01-26-2023 09:18-0500 Systolic blood pressure 124 mm[Hg] Kaiser Gómez MD Work Phone: [facility] 11-13-2022 09:40-0400 Body height 180.34 cm Nabil Sonia Other [employer] Other 11-13-2022 09:40-0400 Body mass index (BMI) [Ratio] 26.3 kg/m2 Nabil Sonia Other [employer] Other 11-13-2022 09:40-0400 Body temperature 97.7 [degF] Nabil Sonia Other [employer] Other 11-13-2022 09:40-0400 Body weight 85.55 kg Nabil Sonia Other [employer] Other 11-13-2022 09:40-0400 Diastolic blood pressure 70 mm[Hg] Nabil Sonia Other [employer] Other 11-13-2022 09:40-0400 Respiratory rate 18 /min Nabil Sonia Other [employer] Other 11-13-2022 09:40-0400 SaO2% (BldA) [Mass fraction] 96 % Nabil Sonia Other [employer] Other 11-13-2022 09:40-0400 Systolic blood pressure 110 mm[Hg] Nabil Sonia Other [employer] Other 04-17-2022 11:00-0500 Body height 180.34 cm Nabil Sonia Other [employer] Other 04-17-2022 11:00-0500 Body mass index (BMI) [Ratio] 26.58 kg/m2 Nabil Sonia Other [employer] Other 04-17-2022 11:00-0500 Body temperature 96.5 [degF] Nabil Sonia Other [employer] Other 04-17-2022 11:00-0500 Body weight 86.46 kg Nabil Sonia Other [employer] Other 04-17-2022 11:00-0500 Diastolic blood pressure 71 mm[Hg] Nabil Sonia Other [employer] Other 04-17-2022 11:00-0500 Respiratory rate 18 /min Nabil Sonia Other [facility] Other 04-17-2022 11:00-0500 SaO2% (BldA) [Mass fraction] 97 % Nabil Sonia Other [facility] Other 04-17-2022 11:00-0500 Systolic blood pressure 131 mm[Hg] Nabil Sonia Other [facility] Other 01-15-2022 15:30-0400 Body height 177.8 cm Wilder E Ball Work Phone: [facility] [employer] 250 DO Work Phone: 01-15-2022 15:30-0400 Body mass index (BMI) [Ratio] 27.26 kg/m2 Wilder E Ball Work Phone: [facility] [employer] 250 DO Work Phone: 01-15-2022 15:30-0400 Body surface area Derived from formula 2.04 m2 Wilder E Ball Work Phone: [facility] [employer] 250 DO Work Phone: 01-15-2022 15:30-0400 Body weight 86.18 kg Wilder E Ball Work Phone: [facility] [employer] 250 DO Work Phone: 01-15-2022 15:30-0400 Diastolic blood pressure 60 mm[Hg] Wilder E Ball Work Phone: [facility] [employer] 250 DO Work Phone: 01-15-2022 15:30-0400 Heart rate 68 /min Wilder E Ball Work Phone: [facility] [employer] 250 DO Work Phone: 01-15-2022 15:30-0400 Systolic blood pressure 112 mm[Hg] Wilder E Ball Work Phone: [facility] 250 DO Work Phone: 2021 11:00-0400 Body height 180.34 cm Nabil Sonia Other [facility] Other 2021 11:00-0400 Body mass index (BMI) [Ratio] 26.11 kg/m2 Nabil Sonia Other [employer] Other 2021 11:00-0400 Body temperature 97.4 [degF] Nabil Sonia Other [employer] Other 2021 11:00-0400 Body weight 84.91 kg Nabil Sonia Other [employer] Other 2021 11:00-0400 Diastolic blood pressure 70 mm[Hg] Nabil Sonia Other [employer] Other 2021 11:00-0400 Respiratory rate 18 /min Nabil Sonia Other [employer] Other 2021 11:00-0400 SaO2% (BldA) [Mass fraction] 97 % Nabil Sonia Other [employer] Other 2021 11:00-0400 Systolic blood pressure 110 mm[Hg] Nabil Sonia Other [employer] Other 07-29-2021 12:30-0400 Body height 180.34 cm Angel Cotton Other [employer] Other 07-29-2021 12:30-0400 Body mass index (BMI) [Ratio] 26.05 kg/m2 Angel Cotton Other [employer] Other 07-29-2021 12:30-0400 Body weight 84.73 kg Angel Cotton Other [employer] Other 04-09-2021 11:40-0500 Body height 177.8 cm Wilder E Ball Work Phone: [facility] [employer] 250 DO Work Phone: 04-09-2021 11:40-0500 Body mass index (BMI) [Ratio] 27.12 kg/m2 Wilder E Ball Work Phone: [facility] [employer] 250 DO Work Phone: 04-09-2021 11:40-0500 Body surface area Derived from formula 2.04 m2 Wilder E Ball Work Phone: [facility] [employer] 250 DO Work Phone: 04-09-2021 11:40-0500 Body weight 85.73 kg Wilder E Ball Work Phone: [facility] [employer] 250 DO Work Phone: 04-09-2021 11:40-0500 Diastolic blood pressure 70 mm[Hg] Wilder E Ball Work Phone: [facility] [employer] 250 DO Work Phone: 04-09-2021 11:40-0500 Heart rate 72 /min Wilder E Ball Work Phone: [facility] [employer] 250 DO Work Phone: 04-09-2021 11:40-0500 Systolic blood pressure 122 mm[Hg] Wilder E Ball Work Phone: [facility] [employer] 250 DO Work Phone: Encounters Encounter Date Encounter Type Care Provider Facility Start: 04-15-2023 End: 04-15-2023 ambulatory ASIA Meade CANDELARIO Not Available Start: 04-09-2023 End: 04-10-2023 ambulatory Priti Joel Facility:[facility] [place] Start: 04-09-2023 End: 04-09-2023 Patient encounter procedure Priti Joel [facility] [place] [facility] Start: 04-06-2023 End: 04-07-2023 ambulatory Jourdan URBINA Facility:[id number] Start: 03-30-2023 End: 03-30-2023 ambulatory Wilder Sam Other [employer] Other Start: 03-30-2023 Telephone encounter Wiledr Sam [facility] Start: 03-18-2023 End: 03-18-2023 ambulatory Nabil Sonia Other [employer] Other Start: 03-18-2023 Telephone encounter Nabil Sonia [facility] Start: 02-16-2023 End: 02-17-2023 ambulatory Jourdan URBINA Facility:[facility] [place] Start: 02-16-2023 End: 02-16-2023 Patient encounter procedure Jourdan URBINA [facility] Start: 02-12-2023 End: 02-12-2023 ambulatory Wilder Sam Other [employer] Other Start: 02-12-2023 Patient encounter procedure Wilder Sam [facility] Start: 01-26-2023 End: 01-26-2023 Office outpatient visit 25 minutes Kaiser Gómez MD Work Phone: [facility] Comment on above: Mixed hyperlipidemia (Primary Dx); Ventricular tachycardia, paroxysmal (CMS/HCC); TIA (transient ischemic attack); History of right-sided carotid endarterectomy; Essential hypertension; Bilateral carotid artery stenosis Start: 11-13-2022 End: 11-13-2022 ambulatory Nabil Sonia Other [employer] Other Start: 11-13-2022 Office outpatient vi sit 25 minutes Nabil Sonia [facility] Juan C Start: 09-09-2022 End: 09-09-2022 ambulatory Nabil Sonia Other [employer] Other Start: 09-09-2022 Telephone encounter Nabil Sonia [facility] Start: 07-16-2022 End: 07-17-[address] KAISER GÓMEZ Facility:[facility] Start: 04-29-2022 End: 04-29-2022 ambulatory Wilder Sam Other [employer] Other Start: 04-29-2022 Telephone encounter Wilder ZHENG G [facility] Start: 04-17-2022 End: 04-17-2022 ambulatory Nabil Sonia Other [employer] Other Start: 04-17-2022 Office outpatient vi sit 15 minutes Nabil Sonia [facility] Start: 04-07-2022 End: 04-07-2022 ambulatory Wilder Sam Other [employer] Other Start: 04-07-2022 Telephone encounter Wilder ZHENG G [facility] Start: 04-02-2022 End: 04-02-2022 ambulatory Wilder Sam Other [employer] Other Start: 04-02-2022 Telephone encounter Wilder ZHENG G [facility] Start: 03-26-2022 End: 03-27-[address] DOCTOR RANKIN Facility:[facility] Start: 03-11-2022 End: 03-11-2022 ambulatory Conor Baer Other [employer] Other Start: 03-11-2022 Telephone encounter Azclive Quirozs [facility] Start: 02-10-2022 Adult health examination Nabil Sonia Other [employer] Other Start: 01-15-2022 Office outpatient vi sit 15 minutes Wilder Sam Work Phone: [facility] 250 DO Work Phone: Start: 01-15-2022 ambulatory Wilder Sam Fa cility: Start: 01-10-2022 End: 01-11-[address] VANI RIDLEY Facility:[facility] Start: 12-21-2021 End: 12-21-2021 ambulatory ASIA ESPINAL Facility:[facility] Start: 10-30-2021 End: 10-31-[address] WILDER SAM Facility:[facility] Start: 2021 End: 2021 ambulatory Nabil Sonia Other [employer] Other Start: 2021 Office outpatient vi sit 25 minutes Nabil Sonia [facility] Juan C Start: 2021 Telephone encounter Nabil Sonia [facility] Start: 08-26-2021 End: 08-26-2021 ambulatory Angel Cotton Facility:[facility] Start: 08-01-2021 End: 08-02-[address] WILDER SAM Facility:[facility] Start: 07-29-2021 End: 07-29-2021 ambulatory Angel Cotton Other [employer] Other Start: 07-29-2021 Postop follow up vis it related to original px Angel Cotton [facility] Start: 07-15-2021 End: 07-24-2021 Evaluation and management of inpatient Jose Barber Facility:[facility] Start: 07-15-2021 End: 07-15-2021 ambulatory Dixie Carroll Facility:[facility] Start: 04-09-2021 Office outpatient vi sit 25 minutes Wilder Sam Work Phone: [facility] 250 DO Work Phone: Start: 04-09-2021 ambulatory Kaiser Gómez II Faci lity:[id number] Start: 09-02-2017 End: 09-17-2017 Ambulatory DONOVAN CASTORENA [facility] Hwang Procedures Date Procedure Procedure Detail Performing Clinician Start: 07-18-2021 Antibody screen Angel Carrascobisi Comment on above: Order Comment: Comme nt FOR SURGERY 07/19 Result Comment: PERF ORMED BY: [facility] [address] [place] [address] 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 Start: 02-08-2020 Extracorporeal shock wave lithotripsy of calculus of kidney Jourdan URBINA Start: 12-14-2019 Extracorporeal shock wave lithotripsy of calculus of kidney Jourdan URBNIA Comment on above: Right side Start: 11-18-2019 Cystoscopy Jourdan ROMERO Start: 08-16-2019 History of carotid endarterectomy History of right-sided carotid endarterectomy Kaiser Gómez MD Work Phone: Start: 08-31-2018 Echocardiography Start: 09-01-2016 Cystoscope, device (physical object) Jourdan URBINA Start: 01-22-2012 Lt. ESWL 2 Jourdan ROMERO Comment on above: 02/19/12, 12/02/12, 01/27/13, 08/24/14 Start: 10-07-2011 Cystoscopic removal of ureteric stent Jourdan URBINA Start: 09-11-2011 Rt. ESWL Jourdan WELLSS Angioplasty of carot id artery Wilder Sam Work Phone: Appendectomy Jourdan URBINA Arthroplasty of knee Jourdan URBINA Comment on above: Rt. Biopsy of skin Wilder king Work Phone: Cataract (disorder) Jourdan URBINA Cephalic (qualifier value) P radhack CIARA Extraction of cataract Kat URBINA Hernia repair Jourdan URBINA History of carotid endarterectomy History of right-sided carotid endarterectomy Kaiser Gómez MD Work Phone: Kidney operation Wilder E Cecy Work Phone: Operation on gallbladder Luisito ana E Ball Work Phone: Operative procedure on knee Wilder E Cecy Work Phone: Procedure on prostate Benjam in E Ball Work Phone: Surgical procedure o n eye proper Wilder E Cecy Work Phone: Total colonoscopy Wilder E Cecy Work Phone: Plan of Treatment Date Care Activity Detail Author Start: 02-15-2024 End: 02-15-2024 Patient encounter procedure 02/15/2024 9:40 AM EST Office Visit [facility] [address] [facility] [address] [place] [address] Kaiser Gómez MD [address] [facility] [address] [place] [address] [place] [address] [facility] Start: 01-21-2023 FUV, Provider: Kaiser Gómez, Status: Pen, Time: 1:30 PM FUV, Provider: Kaiser Gómez, Status: Pen, Time: 1:30 PM [facility] Work Phone: Start: 02-11-2022 COVID-19 Vaccine (4 - Pfizer series) COVID-19 Vaccine (4 - Pfizer series) [facility] Start: 01-15-2022 FUV, Provider: Kaiser Gómez, Status: Pen, Time: 3:10 PM FUV, Provider: Kaiser Gómez, Status: Pen, Time: 3:10 PM [facility] 250 DO Work Phone: Start: 09-18-1957 DTaP/Tdap/Td Vaccine s (1 - Tdap) DTaP/Tdap/Td Vaccines (1 - Tdap) [facility] Start: 09-18-1953 Diabetes mellitus screening Diabetes Screening [facility] Start: 1935 Lipid panel Lipid Panel [facility] Start: 1935 Medicare Annual Wellness Visit Medicare Annual Wellness Visit (AWV) [facility] Immunizations Immunization Date Immunization Notes Care Provider Fa bentley 12-17-2022 Flu vaccine, quadrivalent, high-dose, preservative free, age 65y+ (FLUZONE) Kaiser Gómez MD Work Phone: [facility] 12-17-2022 influenza virus vaccine, unspecified formulation Jourdan URBINA [facility] 12-17-2022 influenza, high dose seasonal, preservative-free Wilder Sam Other [employer] Other 12-17-2021 Fluzone High-Dose Quadrivalent 0.7 ML Intramuscular Suspension Prefilled Syringe Wilder Sam Work Phone: [facility] 12-17-2021 influenza virus vaccine, unspecified formulation Jourdan URBINA [facility] 12-17-2021 Pfizer COVID-19 Vac Bivalent 30 MCG/0.3ML Intramuscular Suspension Wilder Sam Work Phone: [facility] 11-04-2021 Prevnar 20 0.5 ML Intramuscular Suspension Prefilled Syringe Wilder Sam Work Phone: [facility] 07-05-2021 Comirnaty 30 MCG/0.3 ML Intramuscular Suspension Wilder Sam Work Phone: [facility] 250 DO Work Phone: 07-05-2021 SARS-CoV-2 mRNA (vxirsoxdtey-zqss-duoxr se) vaccine Jourdan URBINA [facility] 12-17-2020 Pfizer-BioNTech COVID-19 Vacc 30 MCG/0.3ML Intramuscular Suspension Wilder Sam Work Phone: [facility] 12-05-2020 Fluzone High-Dose Quadrivalent 0.7 ML Intramuscular Suspension Prefilled Syringe Wilder Sam Work Phone: [facility] 12-05-2020 influenza virus vaccine, unspecified formulation Jourdan URBINA [facility] 05-06-2020 Pfizer-BioNTech COVID-19 Vacc 30 MCG/0.3ML Intramuscular Suspension Wilder Sam Work Phone: [facility] Comment on above: Result Comment: 2021: [id number] 05-05-2020 Pfizer Purple Cap SARS-CoV-2 Kaiser Gómez MD Work Phone: [facility] Work Phone: 04-06-2020 Pfizer-BioNTech COVID-19 Vacc 30 MCG/0.3ML Intramuscular Suspension Wilder Sam Work Phone: [facility] Comment on above: Result Comment: 2021: [id number] 04-05-2020 Pfizer Purple Cap SARS-CoV-2 Kaiser Gómez MD Work Phone: [facility] Work Phone: 12-16-2019 influenza virus vaccine, unspecified formulation Jourdan URBINA [facility] 12-16-2019 influenza, high dose seasonal, preservative-free Wilder Sam Work Phone: [facility] 12-09-2019 influenza virus vaccine, unspecified formulation Jourdan URBINA [facility] 11-15-2019 influenza virus vaccine, unspecified formulation Jourdan URBINA [facility] 01-06-2019 zoster vaccine recombinant Kaiser Gómez MD Work Phone: [facility] Work Phone: 12-27-2018 influenza virus vaccine, unspecified formulation Jourdangm URBINA [facility] 12-27-2018 influenza, seasonal, injectable Wilder E Ball Work Phone: [facility] 250 DO Work Phone: 12-14-2018 influenza virus vaccine, unspecified formulation Wilder E Ball Work Phone: [facility] 12-10-2018 influenza, high dose seasonal, preservative-free Kaiser Gómez MD Work Phone: [facility] Work Phone: 12-06-2018 influenza virus vaccine, unspecified formulation Jourdan URBINA [facility] 12-06-2018 influenza, high dose seasonal, preservative-free Wilder E Ball Work Phone: [facility] 250 DO Work Phone: 11-08-2018 zoster vaccine recombinant Wilder E Ball Work Phone: [facility] DO Work Phone: 12-14-2017 influenza virus vaccine, unspecified formulation Wilder E Ball Work Phone: [facility] 250 DO Work Phone: 12-09-2017 influenza virus vaccine, unspecified formulation Jourdan URBINA [facility] 12-09-2017 influenza, injectabl e, quadrivalent, preservative free Kaiser Gómez MD Work Phone: [facility] Work Phone: 12-23-2016 influenza virus vaccine, unspecified formulation Jourdan URBINA [facility] 12-23-2016 influenza, high dose seasonal, preservative-free Wilder Cheryl Cecy Work Phone: [facility] 250 DO Work Phone: 12-14-2016 influenza virus vaccine, unspecified formulation Wilder Cheryl Cecy Work Phone: [facility] 250 DO Work Phone: 01-15-2016 influenza virus vaccine, unspecified formulation Wilder E Cecy Work Phone: [place] [address] DO Work Phone: 01-15-2016 pneumococcal conjuga te vaccine, 13 valent Wilder Luna Ceyc Work Phone: [place] [address] DO Work Phone: 12-26-2015 pneumococcal conjuga te vaccine, 13 valent Kaiser Gómez MD Work Phone: [facility] Work Phone: 01-08-2015 influenza virus vaccine, unspecified formulation Wilder Cheryl Cecy Work Phone: [facility] 250 DO Work Phone: 12-20-2013 influenza virus vaccine, unspecified formulation Wilder Luna Cecy Work Phone: [facility] 250 DO Work Phone: 10-30-2010 zoster vaccine, live Benjami reynaldo Luna Ball Work Phone: [facility] 250 DO Work Phone: 03-16-2010 pneumococcal polysaccharide vaccine, 23 valent Wilder Luna Ball Work Phone: [facility] 250 DO Work Phone: 03-16-2008 pneumococcal polysaccharide vaccine, 23 valent Wilder Sam Work Phone: [facility] 250 DO Work Phone: pneumococcal Conjuga te, unspecified formulation; Translations: [Need for prophylactic vaccination against Streptococcus pneumoniae (pneumococcus)] Nabil Scott Other [facility] Other Payers Date Payer Category Payer Medicare [id number] 2022 Unknown 2021 Medicare [id number] 2021 Self-pay 2020 Unknown [id number] 1959 Medicare [id number] 1959 Private Health Insurance 101 [id number] 1935 Unknown [id number] 2.16. [id number] 1935 Unknown [id number]. [id number] 1935 Unknown [id number] 2.16.84 [id number] 1935 Unknown [id number] 2.16.84 [id number] 1935 Unknown [id number] 2.16.84 [id number] 1935 Unknown [id number] 2.16.84 [id number] 1935 Unknown [id number] 2.16.84 [id number] 1935 Unknown [id number] 2.16.84 [id number] 1935 Unknown [id number] 2.16.84 [id number] 1935 Unknown [id number] 2.16.8 40.1.374534.3.579.2.727 1935 Unknown [id number] 2.16.8 [id number] 1935 Unknown [id number] 2.16.8 [id number] 1935 Unknown [id number] 2.16.84 [id number] Medicare [id number] 2.1 [id number] Unknown [id number] 2.16.8 [id number] Unknown [id number] 2.16.8 [id number] Unknown [id number] 2.16.8 [id number] Social History Date Type Detail Facility Start: 01-26-2023 No illicit drug use No illicit drug use [facility] 250 DO Work Phone: Comment on above: Twice a week; 1 cup of coffee a da y; Start: 01-26-2023 Sex Assigned At F [facility] Start: 01-26-2023 End: 04-09-2023 Tobacco smoking status NHIS Ex-smoker [facility] Work Phone: History of tobacco use Current smoker [facility] Work Phone: History of tobacco use Cigarette Smoker [facility] Work Phone: Start: 01-26-2023 Tobacco use and exposure Smokeless tobacco non-user [facility] Work Phone: Start: 01-26-2023 Alcohol intake Lifetime non-d oumar (finding) [facility] Work Phone: Start: 1935 Sex Assigned At Not on file [facility] Work Phone: Start: 01-16-2023 End: 01-26-2023 Exposure to SARS-CoV-2 (event) Not sure [facility] Tobacco smoking status Never [facility] Functional Status Date Assessment Result Facility 04-09-2023 Functional Status N/A [facility] 02-16-2023 Functional Status N/A [facility] Clinical Notes 07-14-2021 to 03-30-2023 Note Date & Type Note Facility 03-30-2023 Evaluation note Encounter Date Diagnosis Assessment Notes Mar, Primary hypertension (ICD-10 - I10) [employer] Other 01-03-2024 Evaluation note* Encounter Date Diagnosis Assessment Notes Treatment Notes Treatment Clinical Notes Mar, Vitamin D deficiency (ICD-10 - E55.9) [place] [employer] Other 12-04-2023 Hospital Discharge instructions Patient Education [...] including vitamins, herbs, eye drops, creams, and ncgs-fdu-opilite medicines. Any problems you or family members [...] provider tells you to take them. Taking xixn-qsr-whrlxop medicines, vitamins, herbs, and supplements. Tests You [...] Follow these instructions at home: Medicines Take echj-itv-himotrb and prescription medicines only as told by [...] provider. Document Revised: 11/13/2021 Document Reviewed: 10/12/2020 [employer] Patient Education 2022 [employer]. Follow Up Care 01/15/2022 10:12:17 With:CIARA SALAZAR, Jourdan Anderson, URL Address: [facility] [address], [place] [address]- [phone] When: Unknown [facility] Jemma 12-04-2023 NoteUrology Cystoscopy Cystoscopy is a procedure [...] including vitamins, herbs, eye drops, creams, and ibud-gll-ssltxui medicines. ? Any problems you or family [...] tells you to take them. ? Taking hbvx-thh-xzwresr medicines, vitamins, herbs, and supplements. Tests You [...] these instructions at home: Medicines ? Take bnru-yvp-mjjssms and prescription medicines only as told by [...] or the department th (more content not included)...[facility] 02-12-2023 Evaluation note* Encounter Date Diagnosis [...] treatment in ER COntinue secondary preventive measures. [employer] Other 11-13-2023 History of Present illness Narrative* Kaiser Gómez MD - 01/26/2023 9:00 AM EST Subjective Tammi Patel is a 87 y.o. 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 He continues to travel to [place] annually to be evaluated by the vascular [...] , Rfl: ergocalciferol (Vitamin D-2) 1.25 MG (64365 UT) capsule, Take 1 capsule (1,250 mcg) [...] stenosis Followed by his vascular surgeon in [place] [facility] Work Phone: 1(791) 638-512111-13-2023 Instructions* Patient Instructions* Gentry Corona MA - [...] time of your visit. documented in this encounterUniversity [facility] Work Phone: [phone]) 830-928908-31-2023 Evaluation note* Encounter Date Diagnosis Assessment Notes Treatment Notes Treatment Clinical Notes Oct, Luisito carrasco kid w cr kid I-IV (ICD-10 - [...] Continue oral vitamin D every 2 weeks. [employer] Other 06-27-2023 Evaluation note* Encounter Date Diagnosis Assessment Notes Treatment Notes Treatment Clinical Notes Aug, Stage 3a chronic kidney disease (ICD-10 - N18.31) [employer] Other 02-14-2023 Evaluation note* Encounter Date Diagnosis Assessment Notes Treatment Notes Treatment Clinical Notes Apr, Elevated cholesterol (ICD-10 - E78.00) [employer] Other 02-02-2023 Evaluation note* Encounter Date Diagnosis Assessment Notes Treatment Notes Treatment Clinical Notes Apr, Luisito vidal w cr kid I-IV (ICD-10 - I12.9) [...] adequate iron stores. No need for ARIEL Apr, Dyslipidemia (ICD-10 - E78.5) Take medications as [...] Change oral vitamin D every 2 weeks. [employer] Other 12-27-2022 Evaluation note* Encounter Date Diagnosis Assessment Notes Treatment Notes Treatment Clinical Notes Feb, Vitamin D deficiency (ICD-10 - E55.9) [employer] Other 07-07-2022 Evaluation note* Encounter Date Diagnosis [...] medications as ordered. Eat heart healthy diet. 07 Yinka, 2022 Thrombocytopenia (ICD-10 - D69.6) Will monitor platelet if continues to drop will refer to the hematology. Sep, Vitamin D deficiency (ICD-10 - E55.9) Calcium within normal limit. Change oral vitamin D every 2 weeks. [employer] Other 07-07-2022 Evaluation note* Encounter Date Diagnosis Assessment Notes Treatment Notes Treatment Clinical Notes Sep, Vitamin D deficiency (ICD-10 - E55.9) [employer] Other 05-16-2022 Evaluation note* Encounter Date Diagnosis Assessment Notes Treatment Notes Treatment Clinical Notes July, Subacute subdural hematoma (ICD-10 - S06.5X9A) The patient will increase his activities as tolerated and we will see him back in about 3 weeks, when he is about a month out from surgery for a repeat CT scan without contrast. [employer] Other 05-01-2022 History general Narrative - Reported* [...] 12/2018 Surgical History BRAIN BLEED SURGERY IN [facility] 07/2021 Hospitalization History See past surgical hx Hospitalization History KIDNEY STONES [employer] Other evaluation + Plan note No data available for this section [facility] evaluation + Plan note Future Appointments Appointment Date:04/28/2023 11:00:00 AM Scheduled Provider: Location:[facility] Appointment Type:Urology FT [facility] Evaluation noteNo InformationNort [employer] Other evaluation note* Diagnosis Mixed hyperlipidemia- Primary Ventricular tachycardia, paroxysmal (CMS/HCC) TIA (transient ischemic attack) Unspecified transient cerebral ischemia History of right-sided carotid endarterectomy Essential hypertension Unspecified essential hypertension Bilateral carotid artery stenosis Occlusion and stenosis of carotid artery without mention of cerebral infarction documented in this encounter [facility] Work Phone: History general Narrative - Reported* Type Description Date Medical History Kidney stones Medical History Enlarged Prostate Medical History TIA Surgical History Lithotripsy, multiple Surgical History Lap Rika 2013 Surgical History Total right knee surgery 1997 Surgical History Appendectomy Surgical History Hernia Surgical History UROLIFT 2017 Surgical History CAROTID RIGHT SIDE 12/2018 Hospitalization History See past surgical hx Hospitalization History KIDNEY STONES [employer] Other History of Present illness Narrative* Patient [...] merits of a modest diet were reviewed. [facility] [employer] Work Phone: History of Present illness NarrativePatient [...] merits of a modest diet and weight loss.[facility] [employer] Work Phone: Hospital Discharge instructions No data available for this section [facility] No data available for this section [facility] for referral (narrative)* Consultation (Routine) - Authorized Specialty Diagnoses / Procedures Referred By Contlesley t Referred To Contact Cardiology Diagnoses Bilateral carotid artery stenosis Procedures Follow Up In Cardiology Kaiser Gómez MD [address] [facility] [address], [address] [address] Kaiser Gómez MD [facility] [facility], [address] [place] [address] Referral ID Status Reason Start Date Expiration Date V isits Requested Visits Authorized [id number] Authorized 01/26/2023 01/26/2024 1 1 [facility] Work Phone: Summary Purpose Family History No Family History Records FoundUnknown Family Member Name Dates Details No pertinent [...] section and content) DATE CREATED AUTHOR 09/17/2017 [facility] DATE CREATED AUTHOR AUTHOR'S ORGANIZ ATION [facility]04/[facility] DATE CREATED AUTHOR AUTHOR'S ORGANIZ ATION 01/16/2022 [facility] DATE CREATED AUTHOR AUTHOR'S ORGANIZ ATION 01/16/2022 [employer] DATE CREATED AUTHOR AUTHOR'S ORGANIZ ATION 04/19/2022 [facility] DATE CREATED AUTHOR AUTHOR'S ORGANIZ ATION 07/24/2022 [facility] DATE CREATED AUTHOR AUTHOR'S ORGANIZ ATION 04/16/2023 [facility] ical Center DATE CREATED AUTHOR AUTHOR'S ORGANIZ ATION 04/17/[address] 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 [facility]. provides no warranty or guarantee of the accuracy or completeness of information in this document.
[2023-04-21 17:36] LABS: Basophils Percent Auto 0.4 % (0.2-2.0); Eosinophils Absolute Auto 0.2 10^3/uL (0.0-0.7); Eosinophils Percent Auto 2.1 % (0.9-7.0); Hematocrit 37.5 % (42.0-54.0); Hemoglobin 12.3 g/dL (14.0-18.0); Immature Granulocytes Abs Auto 0.03 10^3/uL (0.00-0.03); Immature Granulocytes Pct Auto 0.3 % (0.0-0.5); Lymphocytes Absolute Auto 0.6 10^3/uL (1.2-3.8); Lymphocytes Percent Auto 6.4 % (20.5-60.0); Mean Corpuscular HGB Conc 32.8 g/dL (29.9-35.2); Mean Corpuscular Volume 91.5 fL (80.0-94.0); Mean Platelet Volume 10.1 fL (9.5-13.5); Monocytes Absolute Auto 0.7 10^3/uL (0.3-0.8); Monocytes Percent Auto 6.8 % (1.7-12.0); Neutrophils Absolute Auto 8.1 10^3/uL (1.4-6.5); Platelet Count 121 10^3/uL (150-450); Red Cell Distribution Width 13.7 % (11.0-15.0); White Blood Count 9.7 10^3/uL (4.0-11.0)
[2023-04-21 17:42] LABS: Anion Gap 13.9; BUN Creatinine Ratio 12.7; Calcium 9.2 mg/dL (8.5-10.1); Carbon Dioxide 27.7 mmol/L (21.0-32.0); Chloride 103 mmol/L (98-107); Estimated GFR (African America 48 (>=60); Estimated GFR (Non-African Ame 40 (>=60); Glucose 132 mg/dL (74-106); Potassium 4.6 mmol/L (3.5-5.1); Sodium 140 mmol/L (136-145)
[2023-04-21 17:48] LABS: INR 0.99; Prothrombin Time 10.5 sec (9.0-11.6)
[2023-04-21 17:57] LABS: Bilirubin Urine NEGATIVE (NEGATIVE); Blood Urine LARGE (NEGATIVE); Clarity Urine CLOUDY (CLEAR); Color Urine YELLOW (YELLOW); Glucose Urine UA NEGATIVE (NEGATIVE); Ketones Urine TRACE mg/dL (NEGATIVE); Leukocyte Esterase Urine LARGE (NEGATIVE); Nitrite Urine POSITIVE (NEGATIVE); Protein Urine 30 mg/dL (NEG/TRACE); Specific Gravity Urine 1.015 (1.005-1.025); pH Urine 8.5 (5.0-9.0)
[2023-04-21 18:02] LABS: Urine Microscopic Indicated YES
[2023-04-21 18:06] LABS: WBC Urine 50-75 #/HPF (NONE SEEN)
[2023-04-21 18:07] LABS: Bacteria Urine LARGE #/HPF (NONE SEEN); Crystals Seen? None Seen #/HPF (None Seen); Mucus Urine NONE SEEN (NONE SEEN); RBC Urine 75-100 #/HPF (0-2); Squamous Epithelial Cell Urine NONE SEEN #/LPF (NONE/RARE)
[2023-04-21 18:08] LABS: Cast Seen? NONE SEEN #/LPF (NONE SEEN); Urine Culture Indicated YES
[2023-04-21] MEDS: ONDANSETRON 4 MG RAPDIS TABLET SL (18:31)
--- NOTE | 2023-04-25 08:44 | PC.NURSE ---
04/25/23 0844 pt urine c+s reviewed by dr degroot asked to call and check on pt, called spoke with pt , pt improving and follow up with dr jerry on Thursday this coming week. dr degroot nno at this time. pt denies any further questions needs or concerns at this time. Laura Klein RN
== END 2023-04-21 18:43 | disposition home or self-care (01) ==
PROVIDERS: Physician Assistant; Emergency Provider Emergency Medicine; PCP Internal Medicine
DX: N39.0 Urinary tract infection, site not specified (principal); F03.90 Unspecified dementia, unspecified severity, without behavioral disturbance, psychotic disturbance, mood disturbance, and anxiety; I10 Essential (primary) hypertension; N40.1 Benign prostatic hyperplasia with lower urinary tract symptoms; N13.8 Other obstructive and reflux uropathy; Z96.659 Presence of unspecified artificial knee joint; Z79.82 Long term (current) use of aspirin; Z79.899 Other long term (current) drug therapy; Z86.73 Personal history of transient ischemic attack (TIA), and cerebral infarction without residual deficits; Z87.440 Personal history of urinary (tract) infections; Z87.442 Personal history of urinary calculi; Z98.890 Other specified postprocedural states; Z90.49 Acquired absence of other specified parts of digestive tract; Z96.0 Presence of urogenital implants
CPT/HCPCS: 36415; 80048; 81001; 85025; 85610; 87086; 87150; 87186; 93005; 99284; Q0162

== ENCOUNTER 2023-06-14 14:22 | Observation (INO) | payer OTHER, SELFPAY ==
[2023-06-14] VITALS (32 sets, daily range): BP systolic 103–143; BP diastolic 56–97; PULSE 76–127; TEMP 36.3–38.5; O2SAT 93–98; BMI 28.5
--- OUTSIDE RECORDS SUMMARY | 2023-06-14 14:35 | XMS_ITS | CCD ---
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 Name Role Phone DONOVAN CASTORENA Unavailable Unavailable NICKVNG ChungY Unavailable Unavailable Wilder Sam Unavailable Unavailable Unavailable Angel Cotton Unavailable Nabil Scott Unavailable Kaiser Gómez II Referring Unavailable Enma SANTIAGO, Kaiser Attending Unavailable Wilder Sam Primary Care Unavailbernadine e Wilder Sam Primary Care Unavailbernadine e DEWAYNEuinKaiser jacobs II Referring Unavailable Kaiser Gómez II Attending Unavailable Angel Cotton Attending Unavailable Angel Cotton Admitting Unavailable Wilder Sam Primary Care Unavailable Dixie Carroll Attending Unavailable Dixie Carroll Admitting Unavailable Wilder Sam Primary Care Unavailable Jose Barber Attending Unavailable Jose Barber Admitting Unavailable Sandor Leon Consulting Unavailable Wilder Sam Primary Care Unavailable Conor Baer Unavailable Wilder Sam Unavailable ASIA ESPINAL Consulting Unavailable FANY ., DR CH Admitting Unavailable FANY ., DR CH Attending Unavailable CECY, DR HDZ Primary Care Unavailable FANY ., DR CH Consulting Unavailable ENMA, DR HECK Admitting Unavailable CECY, DR HDZ Primary Care Unavailable ENMA, DR HECK Attending Unavailable ENMA, DR HECK Consulting Unavailable CECY, DR HDZ Admitting Unavailable CECY, DR HDZ Attending Unavailable CECY, DR HDZ Consulting Unavailable CECY, DR HDZ Primary Care Unavailable CECY, DR HDZ Admitting Unavailable CECY, DR HDZ Attending Unavailable CECY, DR HDZ Consulting Unavailable CECY, DR HDZ Primary Care Unavailable NORTH, DR VANI Gabriel Consulting Unavailable CECY, DR HDZ Primary Care Unavailable DANIA COMBS Admitting Unavailable MICHEL COMBSNIFER Attending Unavailable GARRET, DANIA Consulting Unavailable MIS, DR MORA Attending Unavailable MISC, DR MORA Consulting Unavailable MISC, DR MORA Admitting Unavailable CECY, DR HDZ Primary Care Unavailable ASIA ESPINAL Consulting Unavailable ENMA, DR HECK Consulting Unavailable CECY, DR HDZ Primary Care Unavailable ENMA, DR HECK Admitting Unavailable ENMA, DR HECK Attending Unavailable Wilder Sam DO Primary Care Provider WILDER SAM Primary Care Physician [phone] ASIA PALOMINO Attending Unavailable URBINA, Jourdan Anderson Attending Unavailable URBINAJourdan Admitting Unavailable URBINA, Jourdan Anderson Attending Unavailable URBINA, Jourdan Anderson Referring Unavailable URBINA, Jourdan Anderson Attending Unavailable Orzech, Priti Daniels Attending Unavailable URBINA, Jourdan Anderson Attending Unavailable URBINA, Jourdan Anderson Attending Unavailable Medications Current Medications Medication Drug Class(es) Dates Sig (Normalized) Sig (Original) amLODIPine 5 mg oral tablet (9 sources) Dihydropyridine Calcium Channel Cyrus Start: 04-30-2023 take 1 tablet by mouth once daily Amlodipine Active 1 TAB PO Daily April 30, 2023 12:00am FreeTextSi tablet Orally Once a day; Note: Source Status: Continue; Provider: Cecy Luna Start: 08-04-2022 take 1 tablet by jace th every twenty-four hours amLODIPine Besylate 5 MG 1 tablet Orally Once a day July, Active Start: 11-21-2019 End: 07-15-2021 take 5 mg by mouth once daily Amlodipine Discontinued 5 MG PO Daily November 20, 2019 11:00pm July 15, 2021 1:14pm Ocuvite (4 sources) Vitamin C Start: 01-31-2019 take 1 tablet by mouth once daily Ocuvite tab(s), Oral, Daily, Refill(s) 0 Start Date: 01/31/19 Status: Ordered aspirin 81 mg delayed release oral tablet (20 sources) Platelet Aggregation Inhibitor, Nonsteroidal Anti-inflammatory Drug Start: 04-30-2023 take 81 mg by mouth once daily Aspirin Active 81 MG PO Daily April 30, 2023 12:00am Start: 11-17-2019 End: 04-30-2023 take 1 mg by mouth once daily aspirin 81 mg oral table t mg tab(s), Oral, Daily, Refills(s) 0 Start Date: 11/17/19 Status: Ordered take 1 tablet by jace th every twenty-four hours Aspirin Adult Low Dose 81 MG 1 tablet Orally Once a day Active atorvastatin 80 mg oral tablet (20 sources) HMG-CoA Reductase Inhibitor Start: 04-30-2023 take 1 tablet by mouth once daily Atorvastatin Active 80 MG PO Daily April 30, 2023 12:00am FreeTextSig: TAKE 1 TABLET BY MOUTH ONCE DAILY; Note: Source Status: Start; Refills: 3; Qty: 100 Tablet; Provider: Cecy Hdz ( ) Start: 08-21-2020 take 1 tablet by jace th once daily atorvastatin (Lipitor) 20 mg tablet Take 1 tablet (20 mg) by mouth once daily. 0 08/21/2020 Active Start: 11-18-2019 End: 04-30-2023 atorvastatin 40 mg Tab Refil ls(s) 0 Start Date: 12/01/19 Status: Ordered take 2 tablets by mo [facility] every twenty-four hours Atorvastatin Calcium 40 MG 2 tablets Oral Once a day Active calcium polycarbophil 625 mg oral tablet (5 sources) Start: 04-30-2023 take 2 tablets by mouth once daily as needed Calcium Polycarbophil (Fiber (Calcium Polycarbophil)) 625 mg tablet Active 1250 MG PO Daily April 30, 2023 12:00am FreeTextSi tablets as needed Orally ONCE A DAY; Note: Source Status: Taking; Provider: Cecy Hdz ( ) take 2 tablets by mo ut every twenty-four hours Fiber 625 MG 2 tablets as needed Orally ONCE A DAY Active End: 01-26-2023 CALCIUM POLYCARBOPHIL ORAL T zeynep by mouth. As diected 0 01/26/2023 Discontinued (Therapy completed) carbidopa 25 mg / levodopa 100 mg oral tablet (20 sources) Aromatic Amino Acid Decarboxylation Inhibitor, Aromatic Amino Acid Start: 11-18-2019 End: 04-30-2023 take 1 tablet by mouth four times daily Carbidopa-Levodopa Active TAB PO April 30, 2023 12:00am FreeTextSig: TAKE 1 TABLET BY MOUTH FOUR TIMES DAILY Oral; Note: Source Status: Continue; Provider: Kayden Mixon Start: 11-17-2019 take 1 tablet by jace th four times daily Sinemet 10 mg-100 mg Tab tab(s), Oral, QID, Refill(s) 0 Start Date: 11/17/19 Status: Ordered take 1 tablet by [facility] four times daily Carbidopa-Levodopa 25-100 MG TAKE 1 TABLET BY MOUTH FOUR TIMES DAILY Oral for 90 Days Active cephalexin 250 mg oral capsule (4 sources) Cephalosporin Antibacterial Start: 02-16-2023 End: 02-26-2023 take 1 capsule by mouth twice daily Keflex 250 mg Cap 250 mg = 1 cap(s), Oral, BID, X 10 day(s), # 20 cap(s), Refills(s) 0, Pharmacy: [id number], 177, cm, 02/16/23 10:45:00 EST, Height/Length Dosing, 85, kg, 02/16/23 10:45:00 EST, Weight Dosing Start Date: 02/16/23 Stop Date: 02/26/23 Status: Ordered Start: 08-14-2021 take 1 capsule by [facility] twice daily Cephalexin 500 MG Oral Capsule TAKE 1 CAPSULE BY MOUTH TWICE DAILY FOR 7 DAYS Quantity: 14 Refills: 0 Ordered: 14-Aug-2021 DO Start : 14-Aug-2021 Complete docusate sodium 100 mg oral capsule (12 sources) Start: 04-30-2023 take 1 capsule by mouth twice daily as needed Docusate Sodium Active 1 CAP PO Twice daily April 30, 2023 12:00am FreeTextSi capsule as needed Orally TWICE A DAY; Note: Source Status: Taking; Provider: Cecy Hdz ( ) take 1 capsule by mouth every tw elve hours Colace 100 MG 1 capsule as needed Orally TWICE A DAY Active ergocalciferol 1.25 mg oral capsule (20 sources) Provitamin D2 Compound Start: 04-30-2023 take 1 capsule by mouth every other week Ergocalciferol (Vitamin D2) Active PO April 30, 2023 12:00am FreeTextSi capsule Orally Q2 weeks; Note: Source Status: Refill; Refills: 1; Provider: Sonia Ferrer Start: 01-15-2022 ergocalciferol 50,000 intl units Cap 6 EA, TAKE 1 CAPSULE BY MOUTH EVERY 2 (TWO) weeks, Refills(s) 0 Start Date: 01/15/22 Status: Ordered Start: 01-15-2022 ergocalciferol 50,000 intl units Cap 6 EA, TAKE 1 CAPSULE BY MOUTH EVERY 2 (TWO) weeks, Refills(s) 0 Start Date: 01/15/22 Status: Ordered Start: 02-14-2021 take 1 capsule by mo uth every week Vitamin D (Ergocalciferol) 1.25 MG (99531 UT) Oral Capsule TAKE 1 CAPSULE BY MOUTH EVERY week Quantity: 12 Refills: 0 Ordered: 30-Apr-2021 DO Start : 14-Feb-2021 Complete take 1 capsule by mo uth every other week Ergocalciferol 1.25 MG (94964 UT) 1 capsule Orally Q2 weeks for 90 days Active take 1 capsule by mo uth every week ergocalciferol (Vitamin D-2) 1.25 MG (28870 UT) capsule Take 1 capsule (1,250 mcg) [...] succinate 25 mg extended release oral tablet (9 sources) beta-Adrenergic Cyrus Start: 04-30-2023 take 1 tablet by mouth once daily Metoprolol Succinate Active 1 TAB PO Daily April 30, 2023 12:00am FreeTextSi tablet Orally Once a day; Note: Source Status: Continue; Provider: Cecy Luna Start: 08-04-2022 take 1 tablet by jace every twenty-four hours Metoprolol Succinate ER 25 MG 1 tablet Orally Once a day July, Active Start: 11-18-2019 End: 07-15-2021 take 25 mg by mouth once daily Metoprolol Succinate Di scontinued 25 MG PO Daily November 17, 2019 11:00pm July 15, 2021 1:12pm Pu-Cy-[id number]-Swm-Ulyt-Lut-Z ea (Ocuvite Adult 50 Plus) 250 mg (90 mg-160 mg) capsule (2 sources) Start: 04-30-2023 take 1 capsule by mouth twice daily If-Nt-Fz5-Hdg-Uju-Feuz-Lut-Paulo (Ocuvite Adult 50 Plus) 250 mg (90 mg-160 mg) capsule Active 1 CAP PO .twice a day April 30, 2023 12:00am Ocuvite Eye Health Formula - (10 sources) Ocuvite Eye Heal th Formula - as directed Orally Active oxybutynin chloride 5 mg ora l tablet (2 sources) Cho sara erg ic Mus car ini c Ant ago nis t Start: 04-08-2023 take 1 tablet by mouth three times daily as needed oxybutynin 5 mg Tab 5 mg = 1 tab(s), Oral, TID, PRN for urinary discomfort, # 30 tab(s), Refills(s) 0, Pharmacy: [id number], 177, cm, 02/16/23 10:45:00 EST, Height/Length Dosing, 85, kg, 02/16/23 10:45:00 EST, Weight Dosing Start Date: 04/08/23 Status: Ordered potassium citrate 10 meq extended release oral tablet (12 sources) Start: 04-30-2023 take 1 tablet by mouth twice daily at mealtime Potassium Citrate Active 1 TAB PO Twice daily April 30, 2023 12:00am FreeTextSi tablet with meals Orally Twice a day; Note: Source Status: Taking; Refills: 1; Qty: 180 Tablet; Provider: Sonia Ferrer Start: 04-17-2022 take 1 tablet by jace every twelve hours Potassium Citrate ER 10 MEQ (1080 MG) 1 tablet with meals Orally Twice a day Apr, Active tamsulosin hydrochloride 0.4 mg oral capsule (20 sources) alpha-Adrenergic Cyrus Start: 11-18-2019 End: 04-30-2023 take 1 capsule by mouth once daily Flomax 0.4 mg Cap 0.4 mg = 1 cap(s), Oral, Daily, # 30 cap(s), Refills(s) 11, Pharmacy: [id number], 177, cm, 01/15/22 9:44:00 EDT, Height/Length Dosing, 85.7, kg, 01/15/22 9:44:00 EDT, Weight Dosing Start Date: 02/10/23 Status: Ordered Completed/Discontinued Medications Medication Drug Class(es) Dates Sig (Normalized) Sig (Original) ciprofloxacin 250 mg oral tablet (3 sources) Quinolone Antimicrobial Start: 02-17-20 take 1 tablet by mouth once daily Cipro 250 mg Tab 250 mg = 1 tab(s), Oral, Daily, Take 1 tablet the day before the procedure and 1 tablet after the procedure, # 2 tab(s), Refills(s) 0, Pharmacy: [facility], 177, cm, 02/16/23 10:45:00 EST, Height/Length Dosing, 85, kg, 02/16/23 10:45:00 EST, Weight Dosing Start Date: 02/16/23 Status: Ordered clopidogrel 75 mg oral tablet (4 sources) P2Y12 Platelet Inhibitor Start: 11-18-19 End: 07-23-19 take 1 tablet by mouth once daily Clopidogrel (Plavix) 75 mg tablet Discontinued 75 MG PO Daily November 17, 2019 11:00pm July 22, 2021 11:22am Fiber Laxative TABS (2 sources) Fiber Laxative T ABS USE DIRECTED. Quantity: 0 Refills: 0 Ordered: 09-Apr-2021 DO Active hydroCHLOROthiazide 12.5 mg oral tablet (20 sources) Thiazide Diuretic Start: 07-16-19 End: 04-30-19 take 12.5 mg by mouth once daily Hydrochlorothiazide Discontinued 12.5 MG PO Daily July 14, 2021 11:00pm April 30, 2023 3:17pm Start: 04-02-2021 take 1 tablet by jace th once daily hydrochlorothiazide 12.5 mg Tab 90 EA, TAKE 1 TABLET BY MOUTH DAILY, Refills(s) 0 Start Date: 01/15/22 Status: Ordered lisinopril 5 mg oral tablet (2 sources) Angiotensin Converting Enzyme Inhibitor Start: 11-18-2019 End: 07-15-2021 Lisinopril Discontinued TABLET November 17, 2019 11:00pm July 15, 2021 1:11pm mirtazapine 7.5 mg oral tablet (3 sources) Start: 08-01-2021 take 1 tablet by mouth once daily at bedtime Mirtazapine 7.5 MG Oral Tablet TAKE 1 TABLET BY MOUTH EVERY NIGHT AT BEDTIME Quantity: 30 Refills: 0 Ordered: 01-Aug-2021 DO Start : 01-Aug-2021 Complete Ocuvite Adult Formula CAPS (2 sources) Ocuvite Adult Formula CAPS TAKE DIRECTED. Quantity: 0 Refills: 0 Ordered: 09-Apr-2021 DO Active polyethylene glycol 3350 [id number] mg / potassium chloride 2980 mg / sodium bicarbonate 6720 mg / sodium chloride 5840 mg / sodium sulfate 41805 mg powder for oral solution (2 sources) Osmotic Laxative Start: 12-21-2021 GaviLyte-C 240 GM Oral Solution Reconstituted Quantity: 4000 Refills: 0 Ordered: 21-Dec-2021 DO Start : 21-Dec-2021 Complete potassium bicarbonate 25 meq effervescent oral tablet (14 sources) Start: 02-02-2023 take 1 tablet by mouth twice daily Klor-Con/EF 25 mEq oral tablet, effervescent 25 mEq = 1 tab(s), Oral, BID, # 60 tab(s), Refills(s) 11, Pharmacy: [facility], 177, cm, 01/15/22 9:44:00 EDT, Height/Length Dosing, 85.7, kg, 01/15/22 9:44:00 EDT, Weight Dosing Start Date: 02/02/23 Status: Ordered Start: 04-06-2021 End: 01-26-2023 potassium bicarbonate (Klor- Con/EF) 25 mEq effervescent tablet 1 tablet (25 mEq) twice a day. 0 04/06/2021 01/26/2023 Discontinued (Therapy completed) Start: 11-18-2019 End: 04-30-2023 Potassium Bicarb-Citric Acid (Effer-K) 20 mEq tablet, effervescent Discontinued 20 MEQ PO Twice daily November 17, 2019 11:00pm April 30, 2023 3:17pm Problems Active Problems Problem Classification Problem Date Documented Date Episodic/Chronic Abdominal pain (4 sources) Abdominal pain 11-17-2019 Episodic Acute and unspecified renal failure (2 sources) Acute renal failure syndrome; Translations: [Acute kidney failure, unspecified] 02-25-2023 Episodic Acute cerebrovascular disease (8 sources) Cerebral infarction, unspecified; Translations: [Subdural hematoma] Onset: Chronic Biliary tract disease (4 sources) Cholelithiasis [...] kidney disease, stage 3 (moderate)] Onset: 2 04-30-2023 Chronic Coagulation and hemorrhagic disorders (20 sources) [...] Translations: [Unspecified essential hypertension] Onset: 2 Chronic Fluid and electrolyte disorders (4 sources) Metabolic acidosis; Translations: [Metabolic acidosis] 02-25-2023 Episodic Genitourinary symptoms and ill-defined conditions (20 sources) Blood in urine; Translations: [Delay when starting to pass urine] Onset: 4 12-29-2019 Episodic Hyperplasia of prostate (18 sources) Benign prostatic hyperplasia with lower urinary [...] current use of drug therapy; Translations: [Other longterm (current) drug therapy] Episodic Other circulatory disease (4 sources) H/O: cardiovascular disease; Translations: [Personal history of other diseases of the circulatory system] Episodic Other circulatory disease (4 sources) History of cerebrovascular accident without residual deficits; Translations: [Personal history of transient ischemic attack (TIA), and cerebral infarction without residual deficits] Episodic Other diseases of kidney and ureters (2 sources) Secondary hyperparathyroidism; Translations: [Secondary hyperparathyroidism of renal origin] 04-30-2023 Chronic Other diseases of kidney and ureters (2 sources) Secondary hyperparathyroidism of renal origin; Translations: [Secondary hyperparathyroidism (of renal origin)] 04-30-2023 Chronic Other diseases of kidney and ureters (2 sources) Hydronephrosis; Translations: [Unspecified hydronephrosis] 02-25-2023 Episodic Other diseases of kidney and ureters (1 source) Urinary tract obstruction; Translations: [Other obstructive and reflux uropathy] Onset: 4 Episodic Other ear and sense organ disorders [...] inflammatory arthritis and tophaceous disease] Episodic Other nutritional; endocrine; and metabolic disorders (2 sources) Hyperuricemia; Translations: [Hyperuricemia without signs of inflammatory arthritis and tophaceous disease] 04-30-2023 Episodic Other nutritional; endocrine; and metabolic disorders (2 sources) Hyperuricemia without signs of inflammatory arthritis and tophaceous disease; Translations: [Other abnormal blood chemistry] 04-30-2023 Episodic Other screening for suspected conditions (not mental disorders or infectious disease) (3 sources) Electrocardiogram abnormal; Translations: [Nonspecific abnormal electrocardiogram [ECG] [EKG]] Onset: 3 01-23-2023 Episodic Parkinson`s disease (9 sources) Parkinsonism; 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 Residual codes; unclassified (1 source) Presence of other specified devices; Translations: [Other postprocedural status] 05-08-2023 Episodic Screening and history of mental health and substance abuse codes (2 sources) Ex-smoker; Translations: [Personal history of tobacco use] Episodic Spondylosis; intervertebral disc disorders; other back problems (9 sources) Spondylosis without myelopathy or radiculopathy, lumbar region; Translations: [Cervical spondylosis without myelopathy] Onset: 2 Chronic Spondylosis; intervertebral disc disorders; other back problems (8 sources) Backache; Translations: [Low back pain] 12-01-2019 Episodic Transient cerebral ischemia (12 sources) Transient cerebral ischemia; Translations: [Unspecified transient [...] initial encounter] Onset: 2 Urinary tract infections (1 source) Chronic cystitis; Translations: [Other chronic cystitis without hematuria] Onset: 4 Chronic Urinary tract infections (10 sources) Urinary tract infection, site not specified; [...] 07-29-2021 Episodic Other aftercare (1 source) Other longterm (current) drug therapy; Translations: [OTH [facility] CURRENT DRUG THERAPY] Onset: 12-23-2021 Episodic Other aftercare (1 source) detention (current) use of aspirin; Translations: [RELATIONS SPECIALIST CURRENT USE OF ASPIRIN] Onset: 12-23-2021 Episodic Other gastrointestinal disorders (4 sources) Constipation, unspecified; Translations: [CONSTIPATION UNSPECIFIED] Onset: 12-21-2021 Episodic Unclassified (1 source) Onset: 01-26-2023 01-26-2023 Results Test Name Value Interpretation Reference Range Facility Consent for Procedure/Surger yon 06-02-2023 Consent for Procedure/Surgery [id number] Normal [facility] IntraOperative Documentson 0 06-02-2023 IntraOperative Documents [id number] Normal [facility] Lab Reportson 05-18-2023 Lab Reports [id number] Normal [facility] Patient Educationon 05-18-19 Patient Education Urology Benign Prostatic Hyperplasia Benign prostatic hyperplasia (BPH) is an enlarged prostate gland that is caused by the normal aging process. The prostate may get bigger as a man gets older. The condition is not caused by cancer. The prostate is a walnut-sized gland that is involved in the production of semen. It is located in front of the rectum and below the bladder. The bladder stores urine. The urethra carries stored urine out of the body. An enlarged prostate can press on the urethra. This can make it harder to pass urine. The buildup of urine in the bladder can cause infection. Back pressure and infection may progress to bladder damage and kidney (renal) failure. What are the causes? This condition is part of the normal aging process. However, not all men develop problems from this condition. If the prostate enlarges away from the urethra, urine flow will not be blocked. If it enlarges toward the urethra and compresses it, there will be problems passing urine. What increases the risk? This condition is more likely to develop in men older than 50 years. What are the signs or symptoms? Symptoms of this condition include: ? Getting up often during the night to urinate. ? Needing to urinate frequently during the day. ? Difficulty starting urine flow. ? Decrease in size and strength of your urine stream. ? Leaking (dribbling) after urinating. ? Inability to pass urine. This needs immediate treatment. ? Inability to completely empty your bladder. ? Pain when you pass urine. This is more common if there is also an infection. ? Urinary tract infection (UTI). How is this diagnosed? This condition is diagnosed based on your medical history, a physical exam, and your symptoms. Tests will also be done, such as: ? A post-void bladder scan. This measures any amount of urine that may remain in your bladder after you finish urinating. ? A digital rectal exam. In a rectal exam, your health care provider checks your prostate by putting a lubricated, gloved finger into your rectum to feel the back of your prostate gland. This exam detects the size of your gland and any abnormal lumps or growths. ? An exam of your urine (urinalysis). ? A prostate specific antigen (PSA) screening. This is a blood test used to screen for prostate cancer. ? An ultrasound. This test uses sound waves to electronically produce a picture of your prostate gland. Your health care provider may refer you to a specialist in kidney and prostate diseases (urologist). How is this treated? Once symptoms begin, your health care provider will monitor your condition (active surveillance or watchful waiting). Treatment for this condition will depend on the severity of your condition. Treatment may include: ? Observation and yearly exams. This may be the only treatment needed if your condition and symptoms are mild. ? Medicines to relieve your symptoms, including: ? Medicines to shrink the prostate. ? Medicines to relax the muscle of the prostate. ? Surgery in severe cases. Surgery may include: ? Prostatectomy. In this procedure, the prostate tissue is removed completely through an open incision or with a laparoscope or robotics. ? Transurethral resection of the prostate (TURP). In this procedure, a tool is inserted through the opening at the tip of the penis (urethra). It is used to cut away tissue of the inner core of the prostate. The pieces are removed through the same opening of the penis. This removes the blockage. ? Transurethral incision (TUIP). In this procedure, small cuts are made in the prostate. This lessens the prostate's pressure on the urethra. ? Transurethral microwave thermotherapy (TUMT). This procedure uses microwaves to create heat. The heat destroys and removes a small amount of prostate tissue. ? Transurethral needle ablation (TUNA). This procedure uses radio frequencies to destroy and remove a small amount of prostate tissue. ? Interstitial laser coagulation (ILC). This procedure uses a laser to destroy and remove a small amount of prostate tissue. ? Transurethral electrovaporization (TUVP). This procedure uses electrodes to destroy and remove a small amount of prostate tissue. ? Prostatic urethral lift. This procedure inserts an implant to push the lobes of the prostate away from the urethra. Follow these instructions at home: ? Take [id number]-jpaprgy and prescription medicines only as told by your health care provider. ? Monitor your symptoms for any changes. Contact your health care provider with any changes. ? Avoid drinking large amounts of liquid before going to bed or out in public. ? Avoid or reduce how much caffeine or alcohol you drink. ? Give yourself time when you urinate. ? Keep all follow-up visits. This is important. Contact a health care provider if: ? You have unexplained back pain. ? Your symptoms do not get better with treatment. ? You develop side effects from the medicine (more content not included)... Normal [facility] Urology Office/Clinic Noteon 05-18-2023 Urology Office/Clinic Note Chief Complaint Discuss Uro's HPI Staff Pt last seen in our office 02/16/23 due to Recurrent UTI, BPH & Kidny Stone. *Effer K 25meq BID. Also started on Keflex 250mg BID [id number] that day. S/P Cysto 04/06/23 *Catheter placed, dc'd home with 1wk Doxy therapy (per EMR messages- bladder looked like snow globe) Urodynamics completed 04/28/23 Catheter removed in our office today. Pt's is concerned as to why pt had catheter. Is it needed long term care pharmacist? Pt did have a couple hematuria/dark urine events with catheter. is concerned as to what caused it. What does she need to watch for. Did advise pt and of timed voids. She would like to know if he needs to continue timed voids through the night. Pt was taking Oxybutynin PRN with catheter due to bladder spasms. (leaking around catheter) History of Present Illness Tests Reviewed: Uros, Cystoscopy reports I have reviewed and verified the staff HPI to be accurate for this encounter. I have reviewed the previous health record information and history for this patient from Dr. Urbina There have been no associated fever, chills, flank pain, or blood in the urine. Denies any urinary infections since last encounter. Review of Systems PHQ Score Initial [...] tendency. Psychiatric: no confusion, no anxiety. Genitourinary: denies dysuria, denies hematuria, denies discharge, denies urinary frequency, denies urinary hesitancy, denies nocturia, denies incontinence, denies genital sores, denies decreased libido, and denies erectile dysfunction. Physical Exam Vitals & Measurements HR: 68(Peripheral) RR: 16 BP: 127/80 HT: 70 in HT: 177 cm WT: 85 kg WT: 187 lb BMI: 27.13 General Appearance: alert, no distress, well nourished, well developed male. Flank Pain: none. Bladder: nonpalpable. Assessment/Plan 1. Feeling of incomplete bladder emptying (R39.14: Feeling of incomplete bladder emptying) Patient had Dias placed due to bladder being infected. Urodynamics completed 04/28/23 show prostate is open, pt empties fairly well. Patient needs to do timed voids during the day. Mandatory to empty bladder. All questions and concerns were discussed and answered with patient and . They acknowledge understanding. 2. BPH with urinary obstruction (N40.1: Benign prostatic hyperplasia with lower urinary tract symptoms) Dias removed today without difficulty. Cystoscopy shows prostate is fairly wide open. Patient to continue Tamsulosin 0.4mg po qd therapy. Will continue current dose. Patient has Parkinson's and she has to remind patient to do things daily. 3. Hematuria (R31.9: Hematuria, unspecified) Cystoscopy done 04/06/23. Patients will monitor for blood and call if she sees any. 4. 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 5. Kidney stones (N20.0: Calculus of kidney) Other obstructive and reflux uropathy (N13.8: Other obstructive and reflux uropathy) f/u in 6 months with PVR scan Follow-up With When Contact Information Jourdan URBINA MD, URL In 6 months [facility] [address], [place] [address] [phone] Additional Instructions: 6 mo fu with PVR scan Patient Education Benign Prostatic Hyperplasia Daisy Esteban, personally scribed for Dr. Urbina on 05/18/2023 11:01:40. . Documentation recorded by the charleeiberum luna, accurately reflects the services(s) I performed and decisions made by me. Authenticated by Dr. Urbina on 05/18/2023 11:06:43. Problem List/Past Medical History Ongoing Abdominal pain Back pain BPH with urinary obstruction Gross hematuria Hematuria Hesitancy of micturition Hypertension Kidney stone Low back pain Nocturia Recurrent UTI Transient ischemic attack Urgency of urination UTI (urinary tract infection) Historical No qualifying data Procedure/Surgical History Urodynamics (04/28/2023), Cystoscopy (04/06/2023), ESWL of kidney (02/08/2020), ESWL - Extracorporeal shockwave lithotripsy for renal calculus (12/14/2019), Cystoscopy (11/18/2019), Cystoscope (09/01/2016), Lt. ESWL (01/22/2012), Cystoscopic removal of ureteric stent (10/07/2011), Rt. ESWL (09/11/2011), Appendectomy, Cataract, Cranial, Excision of cataract, Hernia Repair, Knee replacement. Medications aspirin 81 mg oral tablet, Oral, Daily atorvastatin 40 mg Tab ergocalciferol 50,000 intl units Cap Flomax 0.4 mg Cap, 0.4 mg= (more content not included)... Normal [facility] Comment on above: Result Comment: Elec tronically Signed By: Jourdan URBINA MD\.br\Date and Time Signed: 05/18/23 11:06 EST\.br\Electronically Co-Signed By: Daisy Meadows\.br\Date and Time Co-Signed: 05/18/23 11:05 EST Urology Office/Clinic Noteon 04-30-2023 Urology Office/Clinic Note Chief Complaint 1yr KUB [...] and pvr scan. -Take Keflex 250mg bid [id number]. Rx sent to in [place]. -Will schedule cystoscopy with PVR. The risks [...] When Contact Information CIARA SALAZAR, Jourdan Anderson, [facility] [address], [place] [address] [phone] Additional Instructions: sched cysto Patient Education Cystoscopy [...] Use:. Cigarettes, H (more content not included)... [facility] Comment on above: Result Comment: Elec tronically Signed By: Daisy Meadows\.br\Date and Time Signed: 04/30/23 14:08 EST IntraOperative Documentson 0 04-29-2023 IntraOperative Documents [id number]#1.00TIFF [facility] Consent for Procedure/Surger yon 04-28-2023 Consent for Procedure/Surgery [id number]#1.00TIFF [facility] Consent for Treatmenton 04-16 Consent for Treatment [id number]#1.00TIFF [facility] ED Note-Physicianon 04-28-19 ED Note-Physician [id number]#1.00TIFF [facility] IntraOperative Documentson 0 04-28-2023 IntraOperative Documents [id number]#1.00TIFF [facility] Ambulatory Visit Summaryon 0 04-09-2023 Ambulatory Visit Summary TAMMI PATEL :1935 Visit Date:04/09/2023 Ambulatory Visit Instructions Your Care Team Attending Physician - CONNOR Joel APRN, Priti Daniels Primary Care Physician - WILDER SAM DO This Is Your Medications List aspirin (aspirin [...] Follow-Up Appointments Thursday 11:00 AM EST Where: [facility] Medications What How [...] for choosing us for your care. Normal [facility] Operative Reporton Operative Report [id number]#1.00TIFF [facility] Consent for Procedure/Surger yon 02-20-2023 Consent for Procedure/Surgery [id number]#1.00TIFF [facility] RAD - MISCon 02-20-2023 RAD - MISC [id number]#1.00TIFF [facility] Ambulatory Visit Summaryon 1 04-19-2022 Ambulatory Visit Summary TAMMI PATEL :1935 Visit Date:02/16/2023 Ambulatory Visit Instructions Your Diagnosis Recurrent UTI BPH with urinary obstruction Kidney stone Tests Performed Urnls Dip Stick Auto w/o Microscopy POC 54463 Your Care Team Attending Physician - CIARA SALAZAR, Jourdan Anderson Primary Care Physician - WILDER SAM DO [...] Where: [facility] [address] , [place] [address]- [phone] Medications What How Much When Instructions New cephalexin (Keflex 250 mg Cap) 1 Capsules By Mouth 2 times a day Duration: 10 Days Pickup at [facility] Unchanged aspirin (aspirin 81 mg oral [...] physician if questions or concerns Pharmacy Information [facility]: [address] [place] [phone] Test Results Urnls Dip Stick Auto w/o Microscopy POC 65955 (02/16/2023) Bilirubin Urine Dipstick - Negative Blood Urine Dipstick - Trace-lysed Glucose Urine Dipstick - Negative Ketones Urine Dipstick - Trace - 5 mg/dl Leukocytes Urine Dipstick - 1+ Small Nitrite Urine Dipstick - Positive Protein Urine Dipstick - 1+ (30 mg/dl) Specific [place] Urine Dipstick - 1.025 Urine Appearance Urine [...] a uri (more content not included)... Normal [facility] Physician Orderon 01-13-2023 Physician Order [id number]#1.00TIFF Normal [facility] LIPID PROFILEon 07-16-2022 CHOL-HDL RATIO NORM SEE BELOW Normal [facility] Comment on above: Result Comment: 3.3 - 4.4 LOW RISK 4.4 - 7.1 AVERAGE RISK 7.1 - 11.0 MODERATE RISK >11.0 HIGH RISK Performed By: #### L IPID, AST, BMP #### [facility] [address] [address] [address] Anu Magdaleno Cholesterol [Mass/Vol] 105 mg/dL Normal <=200 [facility] Comment on above: Performed By: #### L IPID, AST, BMP #### [facility] [address] [address] [address] Anu Magdaleno Cholesterol in HDL [Mass/Vol] 47 mg/dL Normal 40-60 [facility] Comment on above: Performed By: #### L IPID, AST, BMP #### [facility] [address] [address] [address] Anu Magdaleno Cholesterol in LDL [Mass/Vol] 46.2 mg/dL Normal [facility] Comment on above: Performed By: #### L IPID, AST, BMP #### [facility] [address] [address] [address] Anu Magdaleno Cholesterol.total/ Cholesterol in HDL [Mass ratio] 2.2 {ratio} Normal [facility] Comment on above: Performed By: #### L IPID, AST, BMP #### [facility] [address] [address] [address] Anu Magdaleno HDL NORMAL > or = 60 mg/dl - LO W CARDIOVASCULAR RISK <40 mg/dl - HIGH CARDIOVASCULAR RISK Normal [facility] Comment on above: Performed By: #### L IPID, AST, BMP #### [facility] [address] [place] [address] Dr. Anu Magdaleno LDL CALC NORMAL SEE BELOW Normal [facility] Comment on above: Result Comment: <100 mg/dl OPTIMAL 100 - 129 mg/dl NEAR OR ABOVE OPTIMAL 130 - 159 mg/dl BORDERLINE HIGH 160 - 189 mg/dl HIGH >190 mg/dl VERY HIGH Performed By: #### L IPID, AST, BMP #### [facility] [address] [place] [address] Dr. Anu Magdaleno Triglyceride [Mass/Vol] 59 mg/dL Normal <=150 [facility] Comment on above: Performed By: #### L IPID, AST, BMP #### [facility] [address] [place] [address] Dr. Anu Magdaleno VLDL CALC 11.8 mg/dL Normal [facility] Comment on above: Performed By: #### L IPID, AST, BMP #### [facility] [address] [place] [address] Dr. Anu Magdaleno PROF CHEM 8 (BAS METB)on Anion gap [Moles/Vol] 13.1 mmol/L Normal [facility] Comment on above: Performed By: #### F ERR, FETIBC, VITB12 #### [facility] [address] [place] [address] Dr. Anu Magdaleno Calcium [Mass/Vol] 9.2 mg/dL Normal 8.5-10.1 [facility] Comment on above: Performed By: #### F ERR, FETIBC, VITB12 #### [facility] [address] [place] [address] Dr. Anu Magdaleno Chloride [Moles/Vol] 102 mmol/L Normal 98-107 [facility] Comment on above: Performed By: #### F ERR, FETIBC, VITB12 #### [facility] [address] [place] [address] Dr. Anu Magdaleno CO2 [Moles/Vol] 28.3 mmol/L Normal 21.0-32.0 [facility] Comment on above: Performed By: #### F ERR, FETIBC, VITB12 #### [facility] [address] [place] [address] Dr. Anu Magdaleno Creatinine [Mass/Vol] 1.40 mg/dL Critically high 0.70-1.30 [facility] Comment on above: Performed By: #### F ERR, FETIBC, VITB12 #### [facility] [address] [place] [address] Dr. Anu Magdaleno EGFR-AF MONEGASQUE 58 mL/min/1.73m2 Critically low >=60 [facility] Comment on above: Performed By: #### F ERR, FETIBC, VITB12 #### [facility] [address] [address] [address] Anu Magdaleno EGFR-NON AF MONEGASQUE 48 mL/min/1.73m2 Critically low >=60 [facility] Comment on above: Performed By: #### F ERR, FETIBC, VITB12 #### [facility] [address] [address] [address] Anu Magdaleno Glucose [Mass/Vol] 124 mg/dL Critically high 74-[address] [facility] Comment on above: Performed By: #### F ERR, FETIBC, VITB12 #### [facility] [address] [place] [address] Dr. Anu Magdaleno Potassium [Moles/Vol] 4.4 mmol/L Normal 3.5-5.1 [facility] Comment on above: Performed By: #### F ERR, FETIBC, VITB12 #### [facility] [address] [address] [address] Anu Magdaleno Sodium [Moles/Vol] 139 mmol/L Normal 136-145 [facility] Comment on above: Performed By: #### F ERR, FETIBC, VITB12 #### [facility] [address] [address] [address] Anu Magdaleno Urea nitrogen [Mass/Vol] 20.0 mg/dL Critically high 7.0-18.0 [facility] Comment on above: Performed By: #### F ERR, FETIBC, VITB12 #### [facility] [address] [address] [address] Anu Magdaleno Urea nitrogen/Creatinin e [Mass ratio] 14.3 mg/mg Normal [facility] Comment on above: Performed By: #### F ERR, FETIBC, VITB12 #### [facility] [address] [place] [address] Dr. Anu Magdaleno SGRuby 07-16-2022 AST [Catalytic activity/Vol] 16 U/L Normal 15-37 [facility] Comment on above: Performed By: #### L IPID, AST, BMP #### [facility] [address] [address] HEAD WO CONon [...] ASIA ESPINAL Date: 2022-03-26 09:12 Normal [facility] Office Visit (Cardiology)on 01-15-2022 Follow-up visit [...] Recorded: 15Jan2022 03:30PM Heart Rate68, L Radial Qqkcyrzd159, RUE, Sitting Ltvpgcwyj05, RUE, Sitting Height5 ft 10 in Zmyymp372 lb BMI Htrglplkvg09.26 kg/m2 BSA Calculated2.04 Tobacco Useb) No PHQ-2 [...] Screening.on 022 Adult depression screening assessment No [facility] [employer] [address] DO Work Phone: Fall risk assessment b) One or more falls in the last year [facility] [employer] [address] DO Work Phone: Tobacco use status CPHS b) No [facility] [employer] DO Work Phone: XR KUB 1 [...] by: VANI RIDLEY Date: 2022-01-10 17:59 Normal [facility] XR KUB_DECUB or ERECTon 10-0 XR [...] by: ASIA ESPINAL Date: 2021-12-21 11:40 Normal [facility] CBC AUTO DIFFon 10-30-2021 BASO # 0.0 103/ul Normal 0.0-0.1 [facility] Comment on above: Performed By: #### C BC #### [facility] [address] [address] [address] Anu Magdaleno Basophils/100 WBC (Bld) 0.7 % Normal 0.2-2.0 [facility] Comment on above: Performed By: #### C BC #### [facility] [address] [place] [address] Dr. Anu Magdaleno EO # 0.5 103/ul Normal 0.0-0.7 [facility] Comment on above: Performed By: #### C BC #### [facility] [address] [place] [address] Dr. Anu Magdaleno Eosinophils/100 WBC (Bld) 7.7 % Critically high 0.9-7.0 [facility] Comment on above: Performed By: #### C BC #### [facility] [address] [place] [address] Dr. Anu Magdaleno Erythrocyte distribution width (RBC) [Ratio] 13.7 % Normal 11.0-15.0 [facility] Comment on above: Performed By: #### C BC #### [facility] [address] [place] [address] Dr. Anu Magdaleno Hematocrit (Bld) [Volume fraction] 39.5 % Critically low 42.0-54.0 [facility] Comment on above: Performed By: #### C BC #### [facility] [address] [place] [address] Dr. Anu Magdaleno Hemoglobin (Bld) [Mass/Vol] 13.3 g/dL Critically low 14.0-18.0 [facility] Comment on above: Performed By: #### C BC #### [facility] [address] [place] [address] Dr. Anu Magdaleno IG # 0.02 10e3/ul Normal 0.00-0.03 [facility] Comment on above: Performed By: #### C BC #### [facility] [address] [place] [address] Dr. Anu Magdaleno IG % 0.3 % Normal 0.0-0.5 [facility] Comment on above: Performed By: #### C BC #### [facility] [address] [place] [address] Dr. Anu Magdaleno LYMPH # 1.1 103/ul Critically low 1.2-3.8 [facility] Comment on above: Performed By: #### C BC #### [facility] [address] [place] [address] Dr. Anu Magdaleno Lymphocytes/100 WBC (Bld) 18.4 % Critically low 20.5-60.0 [facility] Comment on above: Performed By: #### C BC #### [facility] [address] [place] [address] Dr. Anu Magdaleno MANUAL DIFF REQ NO Normal [facility] Comment on above: Performed By: #### C BC #### [facility] [address] [place] [address] Dr. Anu Magdaleno MCH (RBC) [Entitic mass] 30.0 pg Normal 25.9-34.0 [facility] Comment on above: Performed By: #### C BC #### [facility] [address] [place] [address] Dr. Anu Magdaleno MCHC (RBC) [Mass/Vol] 33.7 g/dL Normal 29.9-35.2 [facility] Comment on above: Performed By: #### C BC #### [facility] [address] [place] [address] Dr. Anu Magdaleno MCV (RBC) [Entitic vol] 89.2 fL Normal 80.0-94.0 [facility] Comment on above: Performed By: #### C BC #### [facility] [address] [place] [address] Dr. Anu Magdaleno MONO # 0.4 103/ul Normal 0.3-0.8 [facility] Comment on above: Performed By: #### C BC #### [facility] [address] [place] [address] Dr. Anu Magdaleno Monocytes/100 WBC (Bld) 7.4 % Normal 1.7-12.0 [facility] Comment on above: Performed By: #### C BC #### [facility] [address] [place] [address] Dr. Anu Magdaleno NEUT # 3.9 103/ul Normal 1.4-6.5 [facility] Comment on above: Performed By: #### C BC #### [facility] [address] [address] [address] Anu Magdaleno Neutrophils/100 WBC (Bld) 65.5 % Normal 43.0-75.0 [facility] Comment on above: Performed By: #### C BC #### [facility] [address] [address] [address] Anu Magdaleno Platelet mean volume (Bld) [Entitic vol] 9.5 fL Normal 9.5-13.5 [facility] Comment on above: Performed By: #### C BC #### [facility] [address] [place] [address] Dr. Anu Magdaleno PLT 121 103/ul Critically low 150-450 [facility] Comment on above: Performed By: #### C BC #### [facility] [address] [place] [address] Dr. Anu Magdaleno RBC 4.43 106/ul Critically low 4.70-6.10 [facility] Comment on above: Performed By: #### C BC #### [facility] [address] [place] [address] Dr. Anu Magdaleno WBC 6.0 103/ul Normal 4.0-11.0 [facility] Comment on above: Performed By: #### C BC #### [facility] [address] [place] [address] Dr. Anu Magdaleno FERRITINon 10-30-2021 Ferritin [Mass/Vol] 137.0 ng/mL Normal 26.0-388.0 [facility] Comment on above: Performed By: #### F ERR, FETIBC, VITB12 #### [facility] [address] [place] [address] Dr. Anu Magdaleno IRON AND TIBCon 10-30-2021 % SATURATION 21.8 % Normal [facility] Comment on above: Performed By: #### F ERR, FETIBC, VITB12 #### [facility] [address] [place] [address] Dr. Anu Magdaleno Iron [Mass/Vol] 67.0 ug/dL Normal 65.0-175.0 [facility] Comment on above: Performed By: #### F ERR, FETIBC, VITB12 #### [facility] [address] [place] [address] Dr. Anu Magdaleno TIBC DIRECT 307.0 ug/dL Normal 250.0-450. 0 [facility] Comment on above: Performed By: #### F ERR, FETIBC, VITB12 #### [facility] [address] [address] [address] Anu Magdaleno VITAMIN B12on 10-30-2021 Cobalamin (Vitamin B12) [Mass/Vol] 385.0 pg/mL Normal 193.0-986. 0 [facility] Comment on above: Performed By: #### F ERR, FETIBC, VITB12 #### [facility] [address] [place] [address] head/brain wo conon 08-26 CT head/brain wo con [facility] [place] [address] [place] [address] CT Scan Report Signed Patient: Tammi Patel MR#: [id number] : 1935 Acct:[id number] Age/Sex: 85 / M ADM Date: 08/26/21 Loc: CT Room: Type: [facility] Attending Dr: Angel Cotton MD Ordering Provider: [...] Jericho Esparza M.D.08/26/2021 10:23 AM Dictation Location: [place] [address] Transcribed By: [facility] 08/26/21 1023 Dictated By: Jericho Esparza II, MD 08/26/21 1019 Signed By: 08/26/21 1023 [facility] CBC AUTO DIFFon 08-01-2021 BASO # 0.1 103/ul Normal 0.0-0.1 [facility] Comment on above: Performed By: #### C BC #### [facility] [address] [place] [address] Dr. Anu Magdaleno Basophils/100 WBC (Bld) 0.7 % Normal 0.2-2.0 [facility] Comment on above: Performed By: #### C BC #### [facility] [address] [address] [address] Anu Magdaleno EO # 0.3 103/ul Normal 0.0-0.7 [facility] Comment on above: Performed By: #### C BC #### [facility] [address] [address] [address] Anu Magdaleno Eosinophils/100 WBC (Bld) 3.4 % Normal 0.9-7.0 [facility] Comment on above: Performed By: #### C BC #### [facility] [address] [place] [address] Dr. Anu Magdaleno Erythrocyte distribution width (RBC) [Ratio] 13.5 % Normal 11.0-15.0 [facility] Comment on above: Performed By: #### C BC #### [facility] [address] [place] [address] Dr. Anu Magdaleno Hematocrit (Bld) [Volume fraction] 40.7 % Critically low 42.0-54.0 [facility] Comment on above: Performed By: #### C BC #### [facility] [address] [place] [address] Dr. Anu Magdaleno Hemoglobin (Bld) [Mass/Vol] 13.1 g/dL Critically low 14.0-18.0 [facility] Comment on above: Performed By: #### C BC #### [facility] [address] [place] [address] Dr. Anu Magdaleno IG # 0.05 10e3/ul Critically high 0.00-0.03 [facility] Comment on above: Performed By: #### C BC #### [facility] [address] [place] [address] Dr. Anu Magdaleno IG % 0.6 % Critically high 0.0-0.5 [facility] Comment on above: Performed By: #### C BC #### [facility] [address] [place] [address] Dr. Anu Magdaleno LYMPH # 0.8 103/ul Critically low 1.2-3.8 [facility] Comment on above: Performed By: #### C BC #### [facility] [address] [place] [address] Dr. Anu Magdaleno Lymphocytes/100 WBC (Bld) 9.6 % Critically low 20.5-60.0 [facility] Comment on above: Performed By: #### C BC #### [facility] [address] [place] [address] Dr. Anu Magdaleno MANUAL DIFF REQ NO Normal [facility] Comment on above: Performed By: #### C BC #### [facility] [address] [address] [address] Anu Magdaleno MCH (RBC) [Entitic mass] 29.0 pg Normal 25.9-34.0 [facility] Comment on above: Performed By: #### C BC #### [facility] [address] [place] [address] Dr. Anu Magdaleno MCHC (RBC) [Mass/Vol] 32.2 g/dL Normal 29.9-35.2 [facility] Comment on above: Performed By: #### C BC #### [facility] [address] [place] [address] Dr. Anu Magdaleno MCV (RBC) [Entitic vol] 90.0 fL Normal 80.0-94.0 [facility] Comment on above: Performed By: #### C BC #### [facility] [address] [place] [address] Dr. Anu Magdaleno MONO # 0.5 103/ul Normal 0.3-0.8 [facility] Comment on above: Performed By: #### C BC #### [facility] [facility] [address] [place] [address] Dr. Anu Magdaleno Monocytes/100 WBC (Bld) 6.4 % Normal 1.7-12.0 [facility] Comment on above: Performed By: #### C BC #### [facility] [address] [place] [address] Dr. Anu Magdaleno NEUT # 6.4 103/ul Normal 1.4-6.5 [facility] Comment on above: Performed By: #### C BC #### [facility] [address] [place] [address] Dr. Anu Magdaleno Neutrophils/100 WBC (Bld) 79.3 % Critically high 43.0-75.0 [facility] Comment on above: Performed By: #### C BC #### [facility] [address] [place] [address] Dr. Anu Magdaleno Platelet mean volume (Bld) [Entitic vol] 10.0 fL Normal 9.5-13.5 [facility] Comment on above: Performed By: #### C BC #### [facility] [address] [address] [address] Anu Magdaleno PLT 154 103/ul Normal 150-450 [facility] Comment on above: Performed By: #### C BC #### [facility] [address] [address] [address] Anu Magdaleno RBC 4.52 106/ul Critically low 4.70-6.10 [facility] Comment on above: Performed By: #### C BC #### [facility] [address] [address] [address] Anu Magdaleno WBC 8.0 103/ul Normal 4.0-11.0 [facility] Comment on above: Performed By: #### C BC #### [facility] [address] [place] [address] Dr. Anu Magdaleno LIPID PROFILEon 08-01-2021 CHOL-HDL RATIO NORM SEE BELOW Normal [facility] Comment on above: Result Comment: 3.3 - 4.4 LOW RISK 4.4 - 7.1 AVERAGE RISK 7.1 - 11.0 MODERATE RISK >11.0 HIGH RISK Performed By: #### F ERR, FETIBC, VITB12 #### [facility] [address] [place] [address] Dr. Anu Magdaleno Cholesterol [Mass/Vol] 102 mg/dL Normal <=200 [facility] Comment on above: Performed By: #### F ERR, FETIBC, VITB12 #### [facility] [address] [place] [address] Dr. Anu Magdaleno Cholesterol in HDL [Mass/Vol] 50 mg/dL Normal 40-60 [facility] Comment on above: Performed By: #### F ERR, FETIBC, VITB12 #### [facility] [address] [place] [address] Dr. Anu Magdaleno Cholesterol in LDL [Mass/Vol] 34.6 mg/dL Normal [facility] Comment on above: Performed By: #### F ERR, FETIBC, VITB12 #### [facility] [address] [address] [address] Anu Magdaleno Cholesterol.total/ Cholesterol in HDL [Mass ratio] 2.0 {ratio} Normal [facility] Comment on above: Performed By: #### F ERR, FETIBC, VITB12 #### [facility] [address] [place] [address] Dr. Anu Magdaleno HDL NORMAL > or = 60 mg/dl - LO W CARDIOVASCULAR RISK <40 mg/dl - HIGH CARDIOVASCULAR RISK Normal [facility] Comment on above: Performed By: #### F ERR, FETIBC, VITB12 #### [facility] [address] [address] [address] Anu Magdaleno LDL CALC NORMAL SEE BELOW Normal [facility] Comment on above: Result Comment: <100 mg/dl OPTIMAL 100 - 129 mg/dl NEAR OR ABOVE OPTIMAL 130 - 159 mg/dl BORDERLINE HIGH 160 - 189 mg/dl HIGH >190 mg/dl VERY HIGH Performed By: #### F ERR, FETIBC, VITB12 #### [facility] [address] [address] [address] Anu Magdaleno Triglyceride [Mass/Vol] 87 mg/dL Normal <=150 [facility] Comment on above: Performed By: #### F ERR, FETIBC, VITB12 #### [facility] [address] [place] [address] Dr. Anu Magdaleno VLDL CALC 17.4 mg/dL Normal [facility] Comment on above: Performed By: #### F ERR, FETIBC, VITB12 #### [facility] [address] [address] [address] Anu Magdaleno PROF CHEM 8 (BAS METB)on Anion gap [Moles/Vol] 13.8 mmol/L Normal [facility] Comment on above: Performed By: #### F ERR, FETIBC, VITB12 #### [facility] [address] [place] [address] Dr. Anu Magdaleno Calcium [Mass/Vol] 9.0 mg/dL Normal 8.5-10.1 [facility] Comment on above: Performed By: #### F ERR, FETIBC, VITB12 #### [facility] [address] [place] [address] Dr. Anu Magdaleno Chloride [Moles/Vol] 100 mmol/L Normal 98-107 [facility] Comment on above: Performed By: #### F ERR, FETIBC, VITB12 #### [facility] [address] [place] [address] Dr. Anu Magdaleno CO2 [Moles/Vol] 28.4 mmol/L Normal 21.0-32.0 [facility] Comment on above: Performed By: #### F ERR, FETIBC, VITB12 #### [facility] [address] [place] [address] Dr. Anu Magdaleno Creatinine [Mass/Vol] 1.31 mg/dL Critically high 0.70-1.30 [facility] Comment on above: Performed By: #### F ERR, FETIBC, VITB12 #### [facility] [address] [place] [address] Dr. Anu Magdaleno EGFR-AF MONEGASQUE >60 Normal >=60 [facility] Comment on above: Performed By: #### F ERR, FETIBC, VITB12 #### [facility] [address] [place] [address] Dr. Anu Magdaleno EGFR-NON AF MONEGASQUE 52 mL/min/1.73m2 Critically low >=60 [facility] Comment on above: Performed By: #### F ERR, FETIBC, VITB12 #### [facility] [address] [place] [address] Dr. Anu Magdaleno Glucose [Mass/Vol] 118 mg/dL Critically high 74-[address] [facility] Comment on above: Performed By: #### F ERR, FETIBC, VITB12 #### [facility] [address] [place] [address] Dr. Anu Magdaleno Potassium [Moles/Vol] 4.2 mmol/L Normal 3.5-5.1 [facility] Comment on above: Performed By: #### F ERR, FETIBC, VITB12 #### [facility] [address] [place], [place] [id number] Dr. Anu Magdaleno Sodium [Moles/Vol] 138 mmol/L Normal 136-145 [facility] Comment on above: Performed By: #### F ERR, FETIBC, VITB12 #### [facility] [address] [place] [address] Dr. Anu Magdaleno Urea nitrogen [Mass/Vol] 21.0 mg/dL Critically high 7.0-18.0 [facility] Comment on above: Performed By: #### F ERR, FETIBC, VITB12 #### [facility] [address] [address] [address] Anu Magdaleno Urea nitrogen/Creatinin e [Mass ratio] 16.0 mg/mg Normal [facility] Comment on above: Performed By: #### F ERR, FETIBC, VITB12 #### [facility] [address] [place] [address] Dr. Anu Magdaleno SGOTon 08-01-2021 AST [Catalytic activity/Vol] 13 U/L Critically low 15-37 [facility] Comment on above: Performed By: #### F ERR, FETIBC, VITB12 #### [facility] [address] [address] [address] Anu Magdaleno Basic Metabolic Panelon 05 Calcium [Mass/Vol] 9.0 mg/dL Normal 8.2-10.2 [facility] Comment on above: Performed By: #### C BC, PT, PTT, BMP #### [facility] [address] [place] [address] [place] Chloride [Moles/Vol] 104 mmol/L Normal 95-114 [facility] Comment on above: Performed By: #### C BC, PT, PTT, BMP #### [facility] [address] [id number] [place] CO2 [Moles/Vol] 23.8 mmol/L Normal 22.0-30.0 [facility] Comment on above: Performed By: #### C BC, PT, PTT, BMP #### [facility] [address] [id number] [place] Creatinine [Mass/Vol] 1.26 mg/dL Normal 0.64-1.27 [facility] Comment on above: Performed By: #### C BC, PT, PTT, BMP #### [facility] [address] [place] [address] Creatinine Clr Calc Pharmacy 44.26 [facility] Comment on above: Result Comment: PERF ORMED BY: [place] [address] PATHOLOGIST [employer]OMINATION EQUIPMENT OPERATOR FAVIO CANAS M.D. Performed By: #### C BC, PT, PTT, BMP #### [address] Estimated GFR ( Marzena > 60 [facility] Comment on above: Result Comment: GFR estimated reference range: According to KDOQI guidelines, <60 ml/min/1.73m2 is sufficient to diagnose a patient with chronic kidney disease. Performed By: #### C BC, PT, PTT, BMP #### [facility] [address] [place] [address] Estimated GFR (Non- Am 54 [facility] Comment on above: Performed By: #### C BC, PT, PTT, BMP #### [address] Glucose [Mass/Vol] 105 mg/dL High 70-100 [facility] Comment on above: Result Comment: [place] Glucose Reference Range is dependent on time and content of last meal. Glucose of more than 200 mg/dL in a nonstressed, ambulatory subject supports the diagnosis of Diabetes Mellitus. ADA recommended reference range Performed By: #### C BC, PT, PTT, BMP #### [facility] [address] [place] [address] Potassium [Moles/Vol] 4.2 mmol/L Normal 3.5-5.1 [facility] Comment on above: Performed By: #### C BC, PT, PTT, BMP #### [facility] [address] Sodium [Moles/Vol] 137 mmol/L Normal 136-146 [facility] Comment on above: Performed By: #### C BC, PT, PTT, BMP #### [facility] [address] Urea nitrogen [Mass/Vol] 22 mg/dL Normal 9-23 [facility] Comment on above: Performed By: #### C BC, PT, PTT, BMP #### [facility] [address] Coagulation Profileon 2021 aPTT Coag (Bld) [Time] 29.6 s Normal 25.1-36.5 [facility] Comment on above: Result Comment: PERF ORMED BY: [place] [address] PATHOLOGIST [employer]OMINATION EQUIPMENT OPERATOR FAVIO CANAS M.D. Performed By: #### C BC, PT, PTT, BMP #### [address] INR Coag (PPP) [Relative time] 1.1 {INR} Normal [facility] Comment on above: Result Comment: INR Therapeutic [...] #### C BC, PT, PTT, BMP #### [facility] [address] [place] [address] PT Coag (PPP) [Time] 12.2 s Normal 9.0-12.9 [facility] Comment on above: Performed By: #### C BC, PT, PTT, BMP #### [address] Complete Blood Count Auto Di ffon 07-19-2021 Basophils (Bld) [#/Vol] 0.1 10*3/uL Normal 0.0-0.2 [facility] Comment on above: Result Comment: PERF ORMED BY: [address] [place] [address] PATHOLOGIST [employer]OMINATION EQUIPMENT OPERATOR FAVIO CANAS M.D. Performed By: #### C BC, PT, PTT, BMP #### [address] Basophils/100 WBC (Bld) 0.9 % Normal . [facility] Comment on above: Performed By: #### C BC, PT, PTT, BMP #### [address] Eosinophils (Bld) [#/Vol] 0.4 10*3/uL Normal 0.0-0.45 [facility] Comment on above: Performed By: #### C BC, PT, PTT, BMP #### [address] Eosinophils/100 WBC (Bld) 7.6 % Normal . [facility] Comment on above: Performed By: #### C BC, PT, PTT, BMP #### [address] Erythrocyte distribution width (RBC) [Ratio] 14.5 % Normal 12.0-14.8 [facility] Comment on above: Performed By: #### C BC, PT, PTT, BMP #### [address] Hematocrit (Bld) [Volume fraction] 37.6 % Low 38.8-50.0 [facility] Comment on above: Performed By: #### C BC, PT, PTT, BMP #### [address] Hemoglobin (Bld) [Mass/Vol] 13.3 g/dL Normal 13.0-17.0 [facility] Comment on above: Performed By: #### C BC, PT, PTT, BMP #### [address] Lymphocytes (Bld) [#/Vol] 1.0 10*3/uL Normal 1.00-4.8 [facility] Comment on above: Performed By: #### C BC, PT, PTT, BMP #### [facility] [address] [place] [address] [place] Lymphocytes/100 WBC (Bld) 17.4 % Normal . [facility] Comment on above: Performed By: #### C BC, PT, PTT, BMP #### [facility] [address] MCH (RBC) [Entitic mass] 30.1 pg Normal 27.5-35.2 [facility] Comment on above: Performed By: #### C BC, PT, PTT, BMP #### [facility] [address] MCV (RBC) [Entitic vol] 84.9 fL Normal 83.5-101 [facility] Comment on above: Performed By: #### C BC, PT, PTT, BMP #### [facility] [address] Mean Corpuscular HGB Conc 35.4 g/dL Normal 32.5-35.6 [facility] Comment on above: Performed By: #### C BC, PT, PTT, BMP #### [facility] [address] [place] [address] [place] Monocytes (Bld) [#/Vol] 0.5 10*3/uL Normal 0.0-0.8 [facility] Comment on above: Performed By: #### C BC, PT, PTT, BMP #### [facility] [address] [place] [address] [place] Monocytes/100 WBC (Bld) 9.6 % Normal . [facility] Comment on above: Performed By: #### C BC, PT, PTT, BMP #### [facility] [address] [place] [address] [place] Neutrophils (Bld) [#/Vol] 3.5 10*3/uL Normal 1.8-7.7 [facility] Comment on above: Performed By: #### C BC, PT, PTT, BMP #### [facility] [address] [place] [address] [place] Neutrophils/100 WBC (Bld) 64.5 % Normal . [facility] Comment on above: Performed By: #### C BC, PT, PTT, BMP #### [facility] [address] Nucleated RBC/100 WBC (Bld) [Ratio] 0.0 % Normal 0-0.5 [facility] Comment on above: Performed By: #### C BC, PT, PTT, BMP #### [facility] [address] Platelet mean volume (Bld) [Entitic vol] 8.2 fL Normal 6.6-10.1 [facility] Comment on above: Performed By: #### C BC, PT, PTT, BMP #### [address] Platelets (Bld) [#/Vol] 119 10*3/uL Low 150-450 [facility] Comment on above: Performed By: #### C BC, PT, PTT, BMP #### [address] RBC (Bld) [#/Vol] 4.43 10*6/uL Normal 3.90-5.60 [facility] Comment on above: Performed By: #### C BC, PT, PTT, BMP #### [address] WBC (Bld) [#/Vol] 5.5 10*3/uL Normal 4.5-11.0 [facility] Comment on above: Performed By: #### C BC, PT, PTT, BMP #### [address] ABO/Rh Retypeon 07-18-2021 ABO/RH Recheck Result Positive Normal [facility] Comment on above: Result Comment: PERF ORMED BY: [place] [address] PATHOLOGIST BROMINATION EQUIPMENT OPERATOR FAVIO CANAS M.D. Type and Screenon 07-18-2021 ABO and Rh group Nom (Bld) Blood group O Rh(D) positive Normal [facility] Comment on above: Order Comment: Comme nt FOR SURGERY 07/19 Basic Metabolic Panelon 05-0 Calcium [Mass/Vol] 8.8 mg/dL Normal 8.2-10.2 [facility] Comment on above: Performed By: #### C BC, PT, PTT, BMP #### [address] Chloride [Moles/Vol] 102 mmol/L Normal 95-114 [facility] Comment on above: Performed By: #### C BC, PT, PTT, BMP #### [address] CO2 [Moles/Vol] 23.7 mmol/L Normal 22.0-30.0 [facility] Comment on above: Performed By: #### C BC, PT, PTT, BMP #### [address] Creatinine [Mass/Vol] 1.33 mg/dL High 0.64-1.27 [facility] Comment on above: Performed By: #### C BC, PT, PTT, BMP #### [address] Creatinine Clr Calc Pharmacy 45.37 [facility] Comment on above: Result Comment: PERF ORMED BY: [place] [address] PATHOLOGIST BROMINATION EQUIPMENT OPERATOR FAVIO CANAS M.D. Performed By: #### C BC, PT, PTT, BMP #### [address] Estimated GFR ( Marzena > 60 [facility] Comment on above: Result Comment: GFR estimated reference range: According to KDOQI guidelines, <60 ml/min/1.73m2 is sufficient to diagnose a patient with chronic kidney disease. Performed By: #### C BC, PT, PTT, BMP #### [address] Estimated GFR (Non- Am 51 [facility] Comment on above: Performed By: #### C BC, PT, PTT, BMP #### [facility] [address] Glucose [Mass/Vol] 98 mg/dL Normal 70-100 [facility] Comment on above: Result Comment: [facility] Glucose Reference Range is dependent on time and content of last meal. Glucose of more than 200 mg/dL in a nonstressed, ambulatory subject supports the diagnosis of Diabetes Mellitus. ADA recommended reference range Performed By: #### C BC, PT, PTT, BMP #### [facility] [address] Potassium [Moles/Vol] 4.2 mmol/L Normal 3.5-5.1 [facility] Comment on above: Performed By: #### C BC, PT, PTT, BMP #### [facility] [address] Sodium [Moles/Vol] 136 mmol/L Normal 136-146 [facility] Comment on above: Performed By: #### C BC, PT, PTT, BMP #### [address] Urea nitrogen [Mass/Vol] 25 mg/dL High 9-23 [facility] Comment on above: Performed By: #### C BC, PT, PTT, BMP #### [address] head/brain wo conon 07-16 CT head/brain wo con [facility] Main [place] [address] [place] [address] CT Scan Report Signed Patient: Tammi Patel MR#: [id number] : 1935 Acct:[id number] Age/Sex: 85 / M ADM Date: 07/15/21 Loc: 3T Room: [address] [place] [address] Type: ADM INOo Attending Dr: Jose Barber [...] Aleks Paredes M.D.07/16/2021 9:22 AM Dictation Location: [place] [address] Transcribed By: [facility] 07/16/21921 Dictated By: Aleks Paredes DO 07/16/21916 Signed By: 07/16/21921 Normal [facility] Basic Metabolic Panelon 05 Calcium [Mass/Vol] 9.1 mg/dL Normal 8.2-10.2 [facility] Comment on above: Performed By: #### C BC, PT, PTT, BMP #### [facility] [address] [place] [address] [place] Chloride [Moles/Vol] 103 mmol/L Normal 95-114 [facility] Comment on above: Performed By: #### C BC, PT, PTT, BMP #### [facility] [address] [place] [address] [place] CO2 [Moles/Vol] 25.7 mmol/L Normal 22.0-30.0 [facility] Comment on above: Performed By: #### C BC, PT, PTT, BMP #### [facility] [address] [id number] [place] Creatinine [Mass/Vol] 1.40 mg/dL High 0.64-1.27 [facility] Comment on above: Performed By: #### C BC, PT, PTT, BMP #### [facility] [address] [place] [address] Creatinine Clr Calc Pharmacy 43.04 [facility] Comment on above: Result Comment: PERF ORMED BY: [place] [address] PATHOLOGIST BROMINATION EQUIPMENT OPERATOR FAVIO CANAS M.D. Performed By: #### C BC, PT, PTT, BMP #### [facility] [address] Estimated GFR ( Marzena 58 [facility] Comment on above: Result Comment: GFR estimated reference range: According to KDOQI guidelines, <60 ml/min/1.73m2 is sufficient to diagnose a patient with chronic kidney disease. Performed By: #### C BC, PT, PTT, BMP #### [facility] [address] [place] [address] Estimated GFR (Non- Am 48 [facility] Comment on above: Performed By: #### C BC, PT, PTT, BMP #### [address] Glucose [Mass/Vol] 119 mg/dL High 70-100 [facility] Comment on above: Result Comment: [place] Glucose Reference Range is dependent on time and content of last meal. Glucose of more than 200 mg/dL in a nonstressed, ambulatory subject supports the diagnosis of Diabetes Mellitus. ADA recommended reference range Performed By: #### C BC, PT, PTT, BMP #### [facility] [address] [place] [address] Potassium [Moles/Vol] 4.1 mmol/L Normal 3.5-5.1 [facility] Comment on above: Performed By: #### C BC, PT, PTT, BMP #### [facility] [address] Sodium [Moles/Vol] 139 mmol/L Normal 136-146 [facility] Comment on above: Performed By: #### C BC, PT, PTT, BMP #### [facility] [address] Urea nitrogen [Mass/Vol] 24 mg/dL High 12-06 [facility] Comment on above: Performed By: #### C BC, PT, PTT, BMP #### [facility] [address] COVID-19 Antigenon 2 COVID-19 Antigen Healthcare [...] developed and its performance characteristic determined by [employer] and validated at [facility]. This test has not been FDA cleared [...] for SARS Antigen by TREY PERFORMED BY: [facility] [address] [id number] PATHOLOGIST BROMINATION EQUIPMENT OPERATOR FAVIO CANAS M.D. Normal [facility] Comment on above: Performed By: #### C BC, PT, PTT, BMP #### [facility] [address] [place] [id number] [facility] COVID-19 [facility] 07-15-2021 SARS-CoV-2 (COVID-19) RNA RUIZ+probe Ql (Unsp spec) Negative Normal Negative [facility] Comment on above: Order Comment: Healt hcare Worker?: N Result Comment: Testing for SARS-CoV-2 by RT-PCR This test was developed and its performance characteristics determined by [employer] and validated at the [facility]. This test has not been FDA cleared [...] is terminated or revoked sooner. PERFORMED BY: [address] [address] PATHOLOGIST BROMINATION EQUIPMENT OPERATOR FAVIO CANAS M.D. Performed By: #### C BC, PT, PTT, BMP #### [facility] [address] [place] [address] [facility] CT head/brain wo [facility] 07-15 CT head/brain wo [facility] Main [address] [address] [address] Scan Report Signed Patient: Tammi Patel MR#: [id number] : 1935 Acct:[id number] Age/Sex: 85 / M ADM Date: 07/15/21 Loc: CT Room: Type: [facility] Attending Dr: Dixie Carroll PA-C Ordering Provider: [...] Jericho Esparza M.D.07/15/2021 1:43 PM Dictation Location: [place] [address] Transcribed By: RUBEN 07/15/21 1343 Dictated By: Jericho Esparza II, MD 07/15/21 1339 Signed By: 07/15/21 1343 Normal [facility] Complete Blood Count Auto Di ffon 07-15-2021 Basophils (Bld) [#/Vol] 0.1 10*3/uL Normal 0.0-0.2 [facility] Comment on above: Result Comment: PERF ORMED BY: [place] [address] PATHOLOGIST BROMINATION EQUIPMENT OPERATOR FAVIO CANAS M.D. Performed By: #### C BC, PT, PTT, BMP #### [address] Basophils/100 WBC (Bld) 1.9 % Normal . [facility] Comment on above: Performed By: #### C BC, PT, PTT, BMP #### [address] Eosinophils (Bld) [#/Vol] 0.3 10*3/uL Normal 0.0-0.45 [facility] Comment on above: Performed By: #### C BC, PT, PTT, BMP #### [address] Eosinophils/100 WBC (Bld) 5.4 % Normal . [facility] Comment on above: Performed By: #### C BC, PT, PTT, BMP #### [facility] [address] [place] [address] Erythrocyte distribution width (RBC) [Ratio] 14.3 % Normal 12.0-14.8 [facility] Comment on above: Performed By: #### C BC, PT, PTT, BMP #### [facility] [address] [place] [address] Hematocrit (Bld) [Volume fraction] 37.0 % Low 38.8-50.0 [facility] Comment on above: Performed By: #### C BC, PT, PTT, BMP #### [facility] [address] [place] [address] Hemoglobin (Bld) [Mass/Vol] 12.9 g/dL Low 13.0-17.0 [facility] Comment on above: Performed By: #### C BC, PT, PTT, BMP #### [address] Lymphocytes (Bld) [#/Vol] 0.8 10*3/uL Low 1.00-4.8 [facility] Comment on above: Performed By: #### C BC, PT, PTT, BMP #### [address] Lymphocytes/100 WBC (Bld) 15.0 % Normal . [facility] Comment on above: Performed By: #### C BC, PT, PTT, BMP #### [address] MCH (RBC) [Entitic mass] 30.0 pg Normal 27.5-35.2 [facility] Comment on above: Performed By: #### C BC, PT, PTT, BMP #### [address] MCV (RBC) [Entitic vol] 85.7 fL Normal 83.5-101 [facility] Comment on above: Performed By: #### C BC, PT, PTT, BMP #### [address] Mean Corpuscular HGB Conc 34.9 g/dL Normal 32.5-35.6 [facility] Comment on above: Performed By: #### C BC, PT, PTT, BMP #### [address] Monocytes (Bld) [#/Vol] 0.4 10*3/uL Normal 0.0-0.8 [facility] Comment on above: Performed By: #### C BC, PT, PTT, BMP #### [address] Monocytes/100 WBC (Bld) 7.3 % Normal . [facility] Comment on above: Performed By: #### C BC, PT, PTT, BMP #### [address] Neutrophils (Bld) [#/Vol] 3.9 10*3/uL Normal 1.8-7.7 [facility] Comment on above: Performed By: #### C BC, PT, PTT, BMP #### [address] Neutrophils/100 WBC (Bld) 70.4 % Normal . [facility] Comment on above: Performed By: #### C BC, PT, PTT, BMP #### [address] Nucleated RBC/100 WBC (Bld) [Ratio] 0.0 % Normal 0-0.5 [facility] Comment on above: Performed By: #### C BC, PT, PTT, BMP #### [address] Platelet mean volume (Bld) [Entitic vol] 8.1 fL Normal 6.6-10.1 [facility] Comment on above: Performed By: #### C BC, PT, PTT, BMP #### [address] Platelets (Bld) [#/Vol] 135 10*3/uL Low 150-450 [facility] Comment on above: Performed By: #### C BC, PT, PTT, BMP #### [address] RBC (Bld) [#/Vol] 4.32 10*6/uL Normal 3.90-5.60 [facility] Comment on above: Performed By: #### C BC, PT, PTT, BMP #### [address] WBC (Bld) [#/Vol] 5.6 10*3/uL Normal 4.5-11.0 [facility] Comment on above: Performed By: #### C BC, PT, PTT, BMP #### [address] ECG 12 lead ECGon 07-15-2021 ECG 12 lead ECG [facility] [place] [place] [address] Electrocardiograph Report Signed Patient: Tammi Patel MR#: [id number] : 1935 Acct:[id number] Age/Sex: 85 / M ADM Date: 07/15/21 Loc: 4N Room: 0D3234-9 Type: DIS IN Attending Dr: Jose Barber [...] Signed By Omayra Horowitz MD 07/15/211909 Normal [facility] Partial Thromboplastin Timeo n 07-15-2021 aPTT Coag (Bld) [Time] 31.7 s Normal 25.1-36.5 [facility] Comment on above: Result Comment: PERF ORMED BY: [place] [address] PATHOLOGIST BROMINATION EQUIPMENT OPERATOR FAVIO CANAS M.D. Performed By: #### C BC, PT, PTT, BMP #### [address] Prothrombin Time INRon 07-15 INR Coag (PPP) [Relative time] 1.0 {INR} Normal [facility] Comment on above: Result Comment: INR Therapeutic [...] #### C BC, PT, PTT, BMP #### [address] PT Coag (PPP) [Time] 11.4 s Normal 9.0-12.9 [facility] Comment on above: Performed By: #### C BC, PT, PTT, BMP #### [address] Leigh Ag Negativeon 07-16-19 Leigh Ag Negative Negative Normal Negative [facility] Comment on above: Result Comment: This is a duplicate Leigh SARS Antigen (TREY) result to be used for statistical tracking purpose only. PERFORMED BY: [place] [address] PATHOLOGIST BROMINATION EQUIPMENT OPERATOR FAVIO CANAS M.D. Performed By: #### C BC, PT, PTT, BMP #### [address] XR chest 1V portableon 07-15 XR chest 1V portable [facility] Main [place] [address] [place] [address] XRay Report Signed Patient: Tammi Patel MR#: [id number] : 1935 Acct:[id number] Age/Sex: 85 / M ADM Date: 07/15/21 Loc: ER Room: Type: 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) Palpitations (785.1) (R00.2) Overweight with body mass index (BMI) of 27 to 27.9 in adult (278.02,V85.23) (E66.3,Z68.27) Former smoker (V15.82) (Z87.891) Hyperlipidemia (272.4) (E78.5) Orders Essential hypertension, Palpitations, Ventricular tachycardia, paroxysmal Basic Metabolic Panel; Status:Active; Requested for:53Pvm0909; Hyperlipidemia AST; Status:Active; Requested for:27Gbs5640; Lipid Panel; Status:Active; Requested for:38Vmb3215; Overweight with body mass index (BMI) of [...] All medical record entries made by the Charleeibe were at my direction and personally dictated [...] 09Apr2021 11:40AM Heart Rate72, L Brachial Artery Zpsmbjhf805, LUE, Sitting Umlkgwogo48, LUE, Sitting Height5 ft 10 in Jkxtnk838 lb BMI Lwdtqekdvp96.12 kg/m2 BSA Calculated2.04 Tobacco Useb) No Fall Screeninga) No falls within the last year Physical Exam Constitutional: alert and in no acute distress. Eyes: no erythema, swelling or discharge from the eye . Neck: neck is supple, symme (more content not included)... Normal [employer] Tobacco Screening.on 022 Fall risk assessment a) No falls within the last year [facility] [employer] 250 DO Work Phone: Tobacco use status [facility] b) No [facility] LogicworksJamestown Regional Medical CenterSprayCooly 250 DO Work Phone: [facility] CARDIAC STRESS/REST INJE CTIONon 08-31-2018 [facility] CARDIAC STRESS/REST INJECTION Patient Name: YI TAMMI STUDY: Performing facility: [facility], [address] [place] [address], [address], [place] [address] Counselor Aide: Pete DELA CRUZ NP PCP: Dr. Anthony MARTINEZ INDICATION: Abnormal EKG; HISTORY: Gender: M; Age: 82 y/o ; Height: 180.34 cm; Weight: 89.6350894 kg. Abnormal EKG; Palpitations; SOB; Fatigue; Family HX CAD; Quit smoking years ago. COMPARISON: Previous nuclear testing completed at [facility]. ACCESSION NUMBER(S): [id number]; [id number]; [id number] ORDERING CLINICIAN: LINDA HOROWITZ NP TECHNIQUE: ONE [...] 43%. Electronically signed by: NEO MATHEW MD [facility] CNOVSPon 09-02-2017 CNOVSP Visit (SP) Office (HEMACL) TAMMI HERRMANN ([id number]) 1935 MDate Time Provider Department09/02/17 1:00 PM DONOVAN CASTORENA During your visit today, we recorded the following information about you: Temperature Pulse Respiration Blood pressure 97.6 degrees 70/minute 18/minute 121/60 Weight Height 86.7 kg 1.753 Corky Cox RomeosilvestreDO cecil 09/17/2017 9:27 AM SignedPATIENT NAME: Tammi Bustamante: [id number] PHYSICIAN: Ben Jiménez MD417 [facility] [id number] CARE PHYSICIAN: Patric Martinez MDOTHER PHYSICIANS:CHIEF COMPLAINT: [...] 09/02/17-COMP METABOLIC PANEL-CBC + DIFF (FOR [facility] USE)-PROTEIN ELECTROPHORESIS W/INTERP-MONOCLONAL PROT BLD W/INTERP-KAPPA/PLAZA,FREE,SER Return if symptoms worsen or fail to improve.he will follow-up as needed only.His platelets are very minimally below normallimit and he has no symptoms. He knows to call me if he has any petechial rashor bleeding issues. Certainly I am more than willing to see him if his [facility] practitioners think this is necessary. HPI: 81 year old male with past medical history significant for chronicnephrolithiasis, benign prostatic hyperplasia, essential hypertension, TIA ( onPlavix), who [facility] apparently was scheduled for another [...] nothing new or out of the ordinary. Yoq937 today No more problems with kidney stones.September [...] 1 tablet by mouth once daily.Vit C-Vit B-Himwew-Kuk-OM-3 (OCUVITE) 623-05-6-150 ca-mtbf-nb-mg cap Take bymouth once daily.tamsulosin ER (FLOMAX) [...] to palpation. No flank tenderness.Rod Castorena D.O.Medical OncologistCleveland Clinic Cancer [place], [place]Referring Provider: BEN JIMÉNEZ [[id number]]Allergies As of Date: 09/02/2017(No Known Allergies)Date Reviewed: 09/02/2017Reviewed by: Amy Horowitz - Fully AssessedReason for Visit: Thrombocytopenia [603] Cmt: follow upPrimary Visit Diagnosis:Thrombocytopenia (HCC) [D69.6]Order(s):COMP METABOLIC PANEL [SQCMP] Order #: [id number] FUTURE CBC + DIFF (FOR [facility] USE) [SQRCBCDF] Order #: [id number] FUTURE PROTEIN ELECTROPHORESIS W/INTERP [SQSEPG] Order #: [id number] FUTURE MONOCLONAL PROT BLD W/INTERP [SQMPASRM] Order #: [id number] FUTURE KAPPA/PLAZA,FREE,SER [SQKLFRS] Order #: [id number] FUTUREDisposition: Return if symptoms worsen or fail [...] by DONOVAN CASTORENA DO on 09/17/17 Normal [facility] Comp Metabolic Panelon 09-02 Alanine aminotransferase (ALT) 14 U/L Normal 10-54 [facility] Comment on above: Performed By: #### C MP, KLFRS, SEPG, MPASRM ####[facility] [phone] Albumin 4.2 g/dL Normal 3.9-4.9 [facility] Comment on above: Performed By: #### C MP, KLFRS, SEPG, MPASRM ####[facility]CJud[address] [phone] Alkaline phosphatase (ALP) 57 U/L Normal 36-108 [facility] Comment on above: Performed By: #### C MP, KLFRS, SEPG, MPASRM ####[place] [address] [phone] Anion gap 16 mmol/L Normal 9-18 [facility] Comment on above: Performed By: #### C MP, KLFRS, SEPG, MPASRM ####[place] [address] [address] [phone] Aspartate aminotransferase (AST) 20 U/L Normal 14-40 [facility] Comment on above: Performed By: #### C MP, KLFRS, SEPG, MPASRM ####[place] [address] [address] [phone] Bilirubin (total) 0.9 mg/dL Normal 0.2-1.3 [facility] Comment on above: Performed By: #### C MP, KLFRS, SEPG, MPASRM ####[facility] [phone] Calcium 9.5 mg/dL Normal 8.5-10.2 [facility] Comment on above: Performed By: #### C MP, KLFRS, SEPG, MPASRM ####[facility] [phone] Chloride 100 mmol/L Normal 97-105 [facility] Comment on above: Performed By: #### C MP, KLFRS, SEPG, MPASRM ####[facility] [address]fx[address]kib[address]oj[address] Ford AveCRutledge, [place] [phone] CO2 22 mmol/L Normal 22-30 [facility] Comment on above: Performed By: #### C MP, KLFRS, SEPG, MPASRM ####[facility] AvVac[address], [place] [phone] Creatinine 1.31 mg/dL High 0.73-1.22 [facility] Comment on above: Performed By: #### C MP, KLFRS, SEPG, MPASRM ####[facility] [place], [place] [phone] eGFR (non-black) 53 . Normal [facility] Comment on above: Result Comment: [...] By: #### C MP, KLFRS, SEPG, MPASRM ####[facility] [address]cl[address] AvVacaville, [place] [phone] eGFR (non-black) mL/min/{1.73_m2} Normal [facility] Comment on above: Performed By: #### C MP, KLFRS, SEPG, MPASRM ####[facility] [place], [place] [phone] Glucose mass conc 159 mg/dL High 74-99 [facility] Comment on above: Result Comment: The [place] Diabetes Association (ADA) provides guidance for cutoff [...] Standards of Medical Care in Diabetes 2016, [place] Diabetes Association. Diabetes Care. 2016.39(Suppl 1). Performed By: #### C MP, KLFRS, SEPG, MPASRM ####[place] [phone] Potassium molar conc 5.0 mmol/L Normal 3.7-5.1 [facility] Comment on above: Performed By: #### C MP, KLFRS, SEPG, MPASRM ####[address] [phone] Protein 6.3 g/dL Normal 6.3-8.0 [facility] Comment on above: Performed By: #### C MP, KLFRS, SEPG, MPASRM ####[place] [id number] AvDa[place] [phone] Sodium 138 mmol/L Normal 136-144 [facility] Comment on above: Performed By: #### C MP, KLFRS, SEPG, MPASRM ####[facility] AvVac[place], [place] [phone] Urea nitrogen 18 mg/dL Normal 9-24 [facility] Comment on above: Performed By: #### C MP, KLFRS, SEPG, MPASRM ####[place] [id number] [place], [place] [phone] [place]/Plaza,Free,Seron 2017 K/L Ratio, Serum 2.09 High 0.26-1.65 [facility] Comment on above: Performed By: #### C MP, KLFRS, SEPG, MPASRM ####[facility] [address] AveCleveland, [place] [phone] [place], Free, Serum 24.7 mg/L High 3.30-19.40 [facility] Comment on above: Result Comment: Rare ly, increased serum free light chains values may not be detected due to antigen excess phenomenon. Results should always be correlated with other laboratory results and clinical findings. Performed By: #### C MP, KLFRS, SEPG, MPASRM ####[facility] AveClevelandN[place], [place] [phone] Lambda, Free, Serum 11.8 mg/L Normal 5.7-26.3 [facility] Comment on above: Result Comment: Rare ly, increased serum free light chains values may not be detected due to antigen excess phenomenon. Results should always be correlated with other laboratory results and clinical findings. Performed By: #### C MP, KLFRS, SEPG, MPASRM ####[facility] AveCRut[place], [place] [phone] Monoclonl Protein,Blon 09-02 MPA Chinmay/Ledezma Ratio 1.75 Normal 1-3 [facility] Comment on above: Performed By: #### C MP, KLFRS, SEPG, MPASRM ####[facility]CR[address], [place] [phone] MPA Result No M protein is identified. Normal No M protein is identified . [facility] Comment on above: Performed By: #### C MP, KLFRS, SEPG, MPASRM ####[facility] [address] AveClevelandNesconset, [place] [phone] MPA Serum IgA 164 mg/dL Normal 78-391 [facility] Comment on above: Performed By: #### C MP, KLFRS, SEPG, MPASRM ####[facility] [address] AveClevelandNescon[place], [place] [phone] MPA Serum IgG 602 mg/dL Low 717-1411 [facility] Comment on above: Performed By: #### C MP, KLFRS, SEPG, MPASRM ####[facility] [address] AveCJudy [place]ille [phone] MPA Serum IgM 65 mg/dL Normal 53-334 [facility] Comment on above: Performed By: #### C MP, KLFRS, SEPG, MPASRM ####[address] Ville [phone] Serum [place] 498 mg/dL Low 534-1267 [facility] Comment on above: Performed By: #### C MP, KLFRS, SEPG, MPASRM ####[place] [phone] Serum Lambda 285 mg/dL Normal 253-653 [facility] Comment on above: Performed By: #### C MP, KLFRS, SEPG, MPASRM ####[place] [phone] Staff Review Reviewed by Aquilino Hendricks MD ([id number]) Normal [facility] Comment on above: Performed By: #### C MP, KLFRS, SEPG, MPASRM ####[address] [phone] PROGRESSon 09-02-2017 PROGRESS HNO ID: [id number] thor: Donovan Aquino: (none)Author Type: PhysicianType: Progress NotesFiled: 09/17/2017 9:27 AMNote Text:PATIENT NAME: Tammi Bustamante: [id number] PHYSICIAN: Ben Jiménez MD[address] [facility] [place]Epi [place] [address]AEUQGVI CARE PHYSICIAN: Patric Martinez MDOTHER PHYSICIANS:CHIEF COMPLAINT: [...] 09/02/17-COMP METABOLIC PANEL-CBC + DIFF (FOR [facility]OTE [facility] USE)-PROTEIN ELECTROPHORESIS W/INTERP-MONOCLONAL PROT BLD W/INTERP-KAPPA/PLAZA,FREE,SER [...] 1 tablet by mouth once daily.Vit C-Vit Q-Xhwtct-Ust-OM-3 (OCUVITE) 201-92-6-150 zz-djef-he-mg cap Takeby mouth once daily.tamsulosin ER (FLOMAX) [...] to palpation. No flank tenderness.Rod Castorena D.O.Medical OncologistNew [place], [place] Normal [facility] Protein Electrophor.on 09-02 Albumin 3.74 g/dL Normal 3.37-4.23 [facility] Comment on above: Performed By: #### C TOMY BAR, SEPG, MPASRM ####[facility] A[address]orepgadak[address] AveClevelandNescon[place], [place] [phone] Alpha 1 Globulin 0.22 gm/dL Normal 0.18-0.31 [facility] Comment on above: Performed By: #### C MP, KLFRS, SEPG, MPASRM ####[facility]CJud[address] [place] [phone] Alpha 2 Globulin 0.72 gm/dL Normal 0.52-0.97 [facility] Comment on above: Performed By: #### C MP, KLFRS, SEPG, MPASRM ####[facility]CJud[address] [place] [phone] Beta Globulin 0.89 gm/dL Normal 0.84-1.36 [facility] Comment on above: Performed By: #### C MP, KLFRS, SEPG, MPASRM ####[facility]CJud[address] [place] [phone] Gamma Globulin 0.73 gm/dL Normal 0.70-1.44 [facility] Comment on above: Performed By: #### C MP, KLFRS, SEPG, MPASRM ####[facility]CJud[address] [place] [phone] Interpretation SEE COMMENT Normal [facility] Comment on above: Result Comment: No d efinitive M protein is identified on protein electrophoresis. Performed By: #### C MP, KLFRS, SEPG, MPASRM ####[facility]CJud[address] [place] [phone] M Protein Location N/A Normal [facility] Comment on above: Performed By: #### C MP, KLFRS, SEPG, MPASRM ####[facility]CJud[address] [place] [phone] M Dhiraj Concentratn 0.00 gm/dL Normal 0.00 [facility] Comment on above: Performed By: #### C MP, KLFRS, SEPG, MPASRM ####[facility] [address]db[address] AvVacaville, [place] [phone] SPE Staff Review Reviewed by Aquilino Hendricks MD ([id number]) Normal [facility] Comment on above: Performed By: #### C MP, KLFRS, SEPG, MPASRM ####[facility] [place], [place] [phone] Total Protein, SPE 6.3 g/dL Normal 6.0-8.4 [facility] Comment on above: Performed By: #### C MP, KLFRS, SEPG, MPASRM ####[facility] [place], [place] [phone] Remote CBCDIF (for [facility] use o nly)on 09-02-2017 Abs Baso 0.03 k/uL Normal 0.00-0.10 [facility] Abs Dolores 0.49 k/uL Normal 0.00-0.86 [facility] Abs Neut 4.04 k/uL Normal 1.45-7.50 [facility] Basophils/100 WBC Auto (Bld) 0.5 % Normal [facility] Eosinophils 0.36 10*3/uL Normal 0.00-0.45 [facility] Eosinophils/100 leukocytes 5.8 % Normal [facility] Erythrocyte distribution width Auto Ratio (RBC) 13.4 % Normal 11.5-15.0 [facility] Erythrocytes (RBC) 4.86 10*6/uL Normal 4.20-6.00 [facility] Hematocrit (HCT) 42.4 % Normal 39.0-51.0 [facility] Hemoglobin mass conc (Bld) 14.9 g/dL Normal 13.0-17.0 [facility] Lymphocytes 1.24 10*3/uL Normal 1.00-4.00 [facility] Lymphocytes/100 leukocytes 20.1 % Normal [facility] MCH 30.7 pG Normal 26.0-34.0 [facility] MCHC mass conc (RBC) 35.1 g/dL Normal 30.5-36.0 [facility] MCV 87.2 fL Normal 80.0-100.0 [facility] Monocytes/100 leukocytes 8.0 % Normal [facility] Neutrophils/100 WBC Auto (Bld) 65.6 % Normal [facility] Platelet mean volume (PMV) 10.2 fL Normal 9.0-12.7 [facility] Platelets 143 10*3/uL Low 150-400 [facility] WBC (Leukocytes) 6.16 10*3/uL Normal 3.70-11.00 [facility] Vital Signs Date Time Vital Sign Value Performing Clinician Facility 05-18-2023 10:47-0500 Blood Pressure Location Jourdan URBINA [facility] 05-18-2023 10:47-0500 Diastolic blood pressure 80 mm[Hg] Jourdan URBINA [facility] 05-18-2023 10:47-0500 Heart rate 68 /min Jourdan URBINA [facility] 05-18-2023 10:47-0500 Respiratory rate 16 /min Jourdan URBINA [facility] 05-18-2023 10:47-0500 Systolic blood pressure 127 mm[Hg] Jourdan URBINA [facility] 05-08-2023 13:30-0500 Body height 180.34 cm [facility] 05-08-2023 13:30-0500 Body mass index (BMI) [Ratio] 25.4 kg/m2 [facility] 05-08-2023 13:30-0500 Body weight 82.55 kg [facility] 05-08-2023 13:30-0500 Diastolic blood pressure 80 mm[Hg] [facility] 05-08-2023 13:30-0500 Heart rate 80 /min [facility] 05-08-2023 13:30-0500 Respiratory rate 12 /min [facility] 05-08-2023 13:30-0500 Systolic blood pressure 121 mm[Hg] [facility] 04-30-2023 15:12-0500 Body height 180.34 cm [facility] 04-30-2023 15:12-0500 Body mass index (BMI) [Ratio] 25.8 kg/m2 [facility] 04-30-2023 15:12-0500 Body temperature 96.4 [degF] [facility] 04-30-2023 15:12-0500 Body weight 83.97 kg [facility] 04-30-2023 15:12-0500 Diastolic blood pressure 70 mm[Hg] [facility] 04-30-2023 15:12-0500 Heart rate 98 /min [facility] 04-30-2023 15:12-0500 Respiratory rate 18 /min [facility] 04-30-2023 15:12-0500 SaO2% (BldA) [Mass fraction] 97 % [facility] 04-30-2023 15:12-0500 Systolic blood pressure 120 mm[Hg] [facility] 02-16-2023 10:43-0500 Blood Pressure Location Jourdan URBINA [facility] 02-16-2023 10:43-0500 Diastolic blood pressure 60 mm[Hg] Jourdan URBINA [facility] 02-16-2023 10:43-0500 Heart rate 62 /min Jourdan URBINA [facility] 02-16-2023 10:43-0500 Respiratory rate 16 /min Jourdan URBINA [facility] 02-16-2023 10:43-0500 Systolic blood pressure 105 mm[Hg] Jourdan URBINA [facility] 02-12-2023 11:30-0500 Body height 180.34 cm Wilder Ball Other [facility] 02-12-2023 11:30-0500 Body mass index (BMI) [Ratio] 26.02 kg/m2 Wilder Ball Other [facility] [email or web address] Other 02-12-2023 11:30-0500 Body weight 84.64 kg Wilder Ball Other [facility] 02-12-2023 11:30-0500 Diastolic blood pressure 74 mm[Hg] Wilder Ball Other [facility] 02-12-2023 11:30-0500 Respiratory rate 12 /min Wilder Ball Other [facility] [email or web address] Other 02-12-2023 11:30-0500 Systolic blood pressure 119 mm[Hg] Wilder Ball Other [facility] 01-26-2023 09:18-0500 Body height 177.8 cm Kaiser Gómez MD Work Phone: [facility] 01-26-2023 09:18-0500 Body mass index (BMI) [Ratio] 26.69 kg/m2 Kaiser Gómez MD Work Phone: [facility] 01-26-2023 09:18-0500 Body weight 84.37 kg Kaiser Gómez MD Work Phone: [facility] 01-26-2023 09:18-0500 Diastolic blood pressure 86 mm[Hg] Kaiser Gómez MD Work Phone: [facility] 01-26-2023 09:18-0500 Heart rate 78 /min Kaiser Gómez MD Work Phone: [facility] 01-26-2023 09:18-0500 Systolic blood pressure 124 mm[Hg] Kaiser Gómez MD Work Phone: [facility] 11-13-2022 09:40-0400 Body height 180.34 cm Nabil Sonia Other [employer] Other 11-13-2022 09:40-0400 Body mass index (BMI) [Ratio] 26.3 kg/m2 Nabil Sonia Other [employer] Other 11-13-2022 09:40-0400 Body temperature 97.7 [degF] Nabil Sonia Other [employer] Other 11-13-2022 09:40-0400 Body weight 85.55 kg Nabil Sonia Other [employer] Other 11-13-2022 09:40-0400 Diastolic blood pressure 70 mm[Hg] Nabil Sonia Other [employer] Other 11-13-2022 09:40-0400 Respiratory rate 18 /min Nabil Sonia Other [employer] Other 11-13-2022 09:40-0400 SaO2% (BldA) [Mass fraction] 96 % Nabil Sonia Other [employer] Other 11-13-2022 09:40-0400 Systolic blood pressure 110 mm[Hg] Nabil Sonia Other [employer] Other 04-17-2022 11:00-0500 Body height 180.34 cm Nabil Sonia Other [employer] Other 04-17-2022 11:00-0500 Body mass index (BMI) [Ratio] 26.58 kg/m2 Nabil Sonia Other [employer] Other 04-17-2022 11:00-0500 Body temperature 96.5 [degF] Nabil Sonia Other [employer] Other 04-17-2022 11:00-0500 Body weight 86.46 kg Nabil Sonia Other [employer] Other 04-17-2022 11:00-0500 Diastolic blood pressure 71 mm[Hg] Nabil Sonia Other [employer] Other 04-17-2022 11:00-0500 Respiratory rate 18 /min Nabil Sonia Other [employer] Other 04-17-2022 11:00-0500 SaO2% (BldA) [Mass fraction] 97 % Nabil Sonia Other [employer] Other 04-17-2022 11:00-0500 Systolic blood pressure 131 mm[Hg] Nabil Sonia Other [employer] Other 01-15-2022 15:30-0400 Body height 177.8 cm Wilder Luna [employer] Phone: [facility] [email or web address] DO Work Phone: 01-15-2022 15:30-0400 Body mass index (BMI) [Ratio] 27.26 kg/m2 Wilder Luna [employer] Phone: [place] [employer] DO Work Phone: 01-15-2022 15:30-0400 Body surface area Derived from formula 2.04 m2 Wilder Luna [employer] Phone: [place] [employer] DO Work Phone: 01-15-2022 15:30-0400 Body weight 86.18 kg Wilder E Ball Work Phone: [facility] [employer] 250 DO Work Phone: 01-15-2022 15:30-0400 Diastolic blood pressure 60 mm[Hg] Wilder E Ball Work Phone: [facility] [employer] 250 DO Work Phone: 01-15-2022 15:30-0400 Heart rate 68 /min Wilder E Ball Work Phone: [facility] [employer] 250 DO Work Phone: 01-15-2022 15:30-0400 Systolic blood pressure 112 mm[Hg] Wilder E Ball Work Phone: [facility] [employer] 250 DO Work Phone: 2021 11:00-0400 Body height 180.34 cm Nabil Sonia Other [employer] Other 2021 11:00-0400 Body mass index (BMI) [Ratio] 26.11 kg/m2 Nabil Sonia Other [employer] Other 2021 11:00-0400 Body temperature 97.4 [degF] Nabil Sonia Other [employer] Other 2021 11:00-0400 Body weight 84.91 kg Nabil Sonia Other [employer] Other 2021 11:00-0400 Diastolic blood pressure 70 mm[Hg] Nabil Sonia Other [employer] Other 2021 11:00-0400 Respiratory rate 18 /min Nabil Sonia Other [employer] Other 2021 11:00-0400 SaO2% (BldA) [Mass fraction] 97 % Nabil Sonia Other [employer] Other 2021 11:00-0400 Systolic blood pressure 110 mm[Hg] Nabil Sonia Other [employer] Other 07-29-2021 12:30-0400 Body height 180.34 cm Angel Cotton Other [employer] Other 07-29-2021 12:30-0400 Body mass index (BMI) [Ratio] 26.05 kg/m2 Angel Cotton Other [employer] Other 07-29-2021 12:30-0400 Body weight 84.73 kg Angel Elslopez Other [employer] Other 04-09-2021 11:40-0500 Body height 177.8 cm Wilder Luna [employer] Work Phone: [facility] [employer] DO Work Phone: 04-09-2021 11:40-0500 Body mass index (BMI) [Ratio] 27.12 kg/m2 Wilder Luna Ball Work Phone: [facility] [employer] [facility] [employer] DO Work Phone: 04-09-2021 11:40-0500 Body surface area Derived from formula 2.04 m2 Wilder Luna Ball Work Phone: [facility] [employer] [employer] DO Work Phone: 04-09-2021 11:40-0500 Body weight 85.73 kg Wilder Lnua Ball [facility] Work Phone: 04-09-2021 11:40-0500 Diastolic blood pressure 70 mm[Hg] Wilder Sam Work Phone: [facility] 250 DO Work Phone: 04-09-2021 11:40-0500 Heart rate 72 /min Wilder Luna Ball Work Phone: [facility] 250 DO Work Phone: 04-09-2021 11:40-0500 Systolic blood pressure 122 mm[Hg] Wilder Sam Work Phone: [facility] 250 DO Work Phone: Encounters Encounter Date Encounter Type Care Provider Facility Start: 11-23-2023 ambulatory Jourdan URBINA Facili ty:[facility] Start: 05-18-2023 End: 05-19-2023 ambulatory Jourdan URBINA Facility:[facility] Start: 05-18-2023 End: 05-18-2023 Patient encounter procedure Jourdan URBINA [facility] Start: 05-08-2023 End: 05-08-2023 ambulatory [facility] Work Phone: Start: 05-08-2023 End: 05-08-2023 [facility] Work Phone: Start: 04-30-2023 End: 04-30-2023 ambulatory [facility] Work Phone: Start: 04-30-2023 End: 04-30-2023 Patient encounter procedure [facility] Juan C Work Phone: Start: 04-28-2023 End: 04-29-2023 ambulatory Jourdan URBINA Facility:[facility] Start: 04-28-2023 End: 04-28-2023 Patient encounter procedure Jourdan URBINA [facility] Start: 04-15-2023 End: 04-15-2023 ambulatory ASIA PALOMINO Not Available Start: 04-09-2023 End: 04-10-2023 ambulatory Priti X Diegozech Facility:[facility] Start: 04-09-2023 End: 04-09-2023 Patient encounter procedure Priti X Orzech [facility] Start: 04-06-2023 End: 04-07-2023 ambulatory Jourdan URBINA Facility:[id number] Start: 03-30-2023 End: 03-30-2023 ambulatory Wilder Sam Other [employer] Other Start: 03-30-2023 Telephone encounter Wilder Sam [facility] Start: 03-18-2023 End: 03-18-2023 ambulatory Nabil Sonia Other [employer] Other Start: 03-18-2023 Telephone encounter Nabil Sonia [facility] Start: 02-16-2023 End: 02-17-2023 ambulatory Jourdan URBINA Facility:[facility] Start: 02-16-2023 End: 02-16-2023 Patient encounter procedure Jourdan URBINA [facility] Start: 02-12-2023 End: 02-12-2023 ambulatory Wilder Sam Other [employer] Other Start: 02-12-2023 Patient encounter procedure Wilder Sam [facility] Start: 02-12-2023 End: 02-12-2023 Patient encounter procedure [facility] Work Phone: Start: 01-26-2023 End: 01-26-2023 Office outpatient visit 25 minutes Kaiser Gómez MD Work Phone: [facility] Comment on above: Mixed hyperlipidemia (Primary Dx); Ventricular tachycardia, paroxysmal (CMS/HCC); TIA (transient ischemic attack); History of right-sided carotid endarterectomy; Essential hypertension; Bilateral carotid artery stenosis Start: 11-13-2022 End: 11-13-2022 ambulatory Nabil Sonia Other [employer] Other Start: 11-13-2022 Office outpatient vi sit 25 minutes Nabil Sonia [facility] Juan C Start: 09-09-2022 End: 09-09-2022 ambulatory Nabil Sonia Other [employer] Other Start: 09-09-2022 Telephone encounter Nabil Sonia [facility] Start: 07-16-2022 End: 07-17-[address] KAISER GÓMEZ Facility:[facility] Start: 04-29-2022 End: 04-29-2022 ambulatory Wilder Sam Other [employer] Other Start: 04-29-2022 Telephone encounter Wilder ZHENG [facility] Start: 04-17-2022 End: 04-17-2022 ambulatory Nabil Sonia Other [employer] Other Start: 04-17-2022 Office outpatient vi sit 15 minutes Nabil Sonia [facility] Juan C Start: 04-07-2022 End: 04-07-2022 ambulatory Wilder Sam Other [employer] Other Start: 04-07-2022 Telephone encounter Wilder Paredes [facility] Start: 04-02-2022 End: 04-02-2022 ambulatory Wilder Sam Other [employer] Other Start: 04-02-2022 Telephone encounter Wilder Paredes [facility] Start: 03-26-2022 End: 03-27-[address] DOCTOR RANKIN Facility:[facility] Start: 03-11-2022 End: 03-11-2022 ambulatory Conor Baer Other [employer] Other Start: 03-11-2022 Telephone encounter Conor Baer [facility] Start: 02-10-2022 Adult health examination Nabil Sonia Other [employer] Other Start: 01-15-2022 Office outpatient vi sit 15 minutes Wilder Sam Work Phone: [facility] 250 DO Work Phone: Start: 01-15-2022 ambulatory Wilder Sam Fa cility: Start: 01-10-2022 End: 01-11-[address] VANI RIDLEY Facility:[facility] Start: 12-21-2021 End: 12-21-2021 ambulatory ASIA ESPINAL Facility:[facility] Start: 10-30-2021 End: 10-31-[address] WILDER SAM Facility:[facility] Start: 2021 End: 2021 ambulatory Nabil Sonia Other [employer] Other Start: 2021 Office outpatient vi sit 25 minutes Nabil Sonia [facility] Juan C Start: 2021 Telephone encounter Nabil Sonia [facility] Start: 08-26-2021 End: 08-26-2021 ambulatory Angel Cotton Facility:[facility] Start: 08-01-2021 End: 08-02-[address] WILDER SAM Facility:[facility] Start: 07-29-2021 End: 07-29-2021 ambulatory Angel Cotton Other [employer] Other Start: 07-29-2021 Postop follow up vis it related to original px Angel Cotton [facility] Start: 07-15-2021 End: 07-24-2021 Evaluation and management of inpatient Jose Barber Facility:[facility] Start: 07-15-2021 End: 07-15-2021 ambulatory Dixie Carroll Facility:[facility] Start: 04-09-2021 Office outpatient vi sit 25 minutes Wilder Sam Work Phone: [facility] 250 DO Work Phone: Start: 04-09-2021 ambulatory Kaiser Gómez II Faci lity: Start: 09-02-2017 End: 09-17-2017 Ambulatory DONOVAN Cox CORRINA [facility] Procedures Date Procedure Procedure Detail Performing Clinician Start: 04-28-2023 Urodynamic studies Patr ayaka URBINA Start: 04-06-2023 Transurethral cystoscopy Jourdan URBINA Start: 07-18-2021 Antibody screen Angel Cotton Comment on above: Order Comment: Comme nt FOR SURGERY 07/19 Result Comment: PERF ORMED BY: [facility] [address] [place] [address] PATHOLOGIST [employer]OMINATION EQUIPMENT OPERATOR FAVIO CANAS M.D. Start: 02-08-2020 Extracorporeal shock wave lithotripsy of calculus of kidney Jourdan URBINA Start: 12-14-2019 Extracorporeal shock wave lithotripsy of calculus of kidney Jourdan URBINA Comment on above: Right side Start: 11-18-2019 [...] Jourdan URBINA Start: 09-11-2011 Rt. ESWL Jourdan ROMERO Angioplasty of carot id artery Wilder Sam Work Phone: Appendectomy Jourdan URBINA Arthroplasty of knee Jourdan URBINA Comment on above: Rt. Biopsy of skin Wilder Luna Korey christine Work Phone: Cataract (disorder) Jourdan URBINA Cephalic (qualifier value) P atrick CIARA Extraction of cataract Kat URBINA Hernia repair Jouradn URBINA History of carotid endarterectomy History of right-sided carotid endarterectomy Kaiser Gómez MD Work Phone: Kidney operation Wilder Sam Work Phone: Operation on gallbladder Luisito ana Chreyl Sam Work Phone: Operative procedure on knee Wilder Sam Work Phone: Procedure on prostate Benjam in E Cecy Work Phone: Surgical procedure o n eye proper Wilder Sam Work Phone: Total colonoscopy Wilder Sam Work Phone: Plan of Treatment Date Care Activity Detail Author Start: 02-15-2024 End: 02-15-2024 Patient encounter procedure 02/15/2024 9:40 AM EST Office Visit [facility] [address] [id number] Kaiser Gómez MD [address] [place] [address] 2, [facility] [address] [place] [address] [facility] Start: 01-21-2023 FUV, Provider: Kaiser Gómez, Status: Pen, Time: 1:30 PM FUV, Provider: Kaiser Gómez, Status: Pen, Time: 1:30 PM [facility] Work Phone: Start: 02-11-2022 COVID-19 Vaccine (4 - Pfizer series) COVID-19 Vaccine (4 - Pfizer series) [facility] Start: 01-15-2022 FUV, Provider: Kaiser Gómez, Status: Pen, Time: 3:10 PM FUV, Provider: Kaiser Gómez, Status: Pen, Time: 3:10 PM [facility] 250 DO Work Phone: Start: 09-18-1957 DTaP/Tdap/Td Vaccine s (1 - Tdap) DTaP/Tdap/Td Vaccines (1 - Tdap) [facility] Start: 09-18-1953 Diabetes mellitus screening Diabetes Screening [facility] Start: 1935 Lipid panel Lipid Panel [facility] Start: 1935 Medicare Annual Wellness Visit Medicare Annual Wellness Visit (AWV) [facility] Renal function 2000 panel - Serum or Plasma [facility] Immunizations Immunization Date Immunization Notes Care Provider [facility] 12-17-2022 Flu vaccine, quadrivalent, high-dose, preservative free, age 65y+ (FLUZONE) Kaiser Gómez MD Work Phone: [facility] 12-17-2022 influenza virus vaccine, unspecified formulation Jourdan URBINA [facility] 12-17-2022 influenza, high dose seasonal, preservative-free Wilder Sam Other [employer] Other 12-17-2021 Fluzone High-Dose Quadrivalent 0.7 ML Intramuscular Suspension Prefilled Syringe Wilder Sam Work Phone: [facility] 12-17-2021 influenza virus vaccine, unspecified formulation Jourdan URBINA [facility] 12-17-2021 Pfizer COVID-19 Vac Bivalent 30 MCG/0.3ML Intramuscular Suspension Wilder Sam Work Phone: [facility] 11-04-2021 Prevnar 20 0.5 ML Intramuscular Suspension Prefilled Syringe Wilder Sam Work Phone: [facility] 07-05-2021 Comirnaty 30 MCG/0.3 ML Intramuscular Suspension Wilder Sam Work Phone: [facility] 07-05-2021 SARS-CoV-2 mRNA (lbmldhzsuos-yqar-vkols se) vaccine Jourdan URBINA [facility] 12-17-2020 Pfizer-BioNTech COVID-19 Vacc 30 MCG/0.3ML Intramuscular Suspension Wilder Luna Cecy Work Phone: [facility] 12-05-2020 Fluzone High-Dose Quadrivalent 0.7 ML Intramuscular Suspension Prefilled Syringe Wilder Sam Work Phone: [facility] 12-05-2020 influenza virus vaccine, unspecified formulation Jourdan URBINA [facility] 05-06-2020 Pfizer-BioNTech COVID-19 Vacc 30 MCG/0.3ML Intramuscular Suspension Wilder Sam Work Phone: [facility] Comment on above: Result Comment: 2021: [id number] 05-05-2020 Pfizer Purple Cap SARS-CoV-2 Kaiser Gómez MD Work Phone: [facility] Work Phone: 04-06-2020 Pfizer-BioNTech COVID-19 Vacc 30 MCG/0.3ML Intramuscular Suspension Wilder Cheryl Sam Work Phone: [facility] Comment on above: Result Comment: 2021: [id number] 04-05-2020 Pfizer Purple Cap SARS-CoV-2 Kaiser Gómez MD Work Phone: [facility] Work Phone: 12-16-2019 influenza virus vaccine, unspecified formulation Jourdangm URBINA [facility] 12-16-2019 influenza, high dose seasonal, preservative-free Wilder E Ball Work Phone: [facility] 12-09-2019 influenza virus vaccine, unspecified formulation Jourdan URBINA [facility] 11-15-2019 influenza virus vaccine, unspecified formulation Jourdan URBINA [facility] 01-06-2019 zoster vaccine recombinant Kaiser Gómez MD Work Phone: [facility] Work Phone: 12-27-2018 influenza virus vaccine, unspecified formulation Jourdan URBINA [facility] 12-27-2018 influenza, seasonal, injectable Wilder E Ball Work Phone: [facility] 250 DO Work Phone: 12-14-2018 influenza virus vaccine, unspecified formulation Wilder E Ball Work Phone: [facility] 12-10-2018 influenza, high dose seasonal, preservative-free Kaiser Gómez MD Work Phone: [facility] Work Phone: 12-06-2018 influenza virus vaccine, unspecified formulation Jourdan URBINA [facility] 12-06-2018 influenza, high dose seasonal, preservative-free Wilder E Ball Work Phone: [facility] 250 DO Work Phone: 11-08-2018 zoster vaccine recombinant Wilder Cheryl Sam Work Phone: [place] [address] DO Work Phone: 12-14-2017 influenza virus vaccine, unspecified formulation Wilder Sam Work Phone: [place] [address] DO Work Phone: 12-09-2017 influenza virus vaccine, unspecified formulation Jourdan URBINA [facility] 12-09-2017 influenza, injectabl e, quadrivalent, preservative free Kaiser Góemz MD Work Phone: [facility] Work Phone: 12-23-2016 influenza virus vaccine, unspecified formulation Jourdangm URBINA [facility] 12-23-2016 influenza, high dose seasonal, preservative-free Wilder Sam Work Phone: [place] [address] DO Work Phone: 12-14-2016 influenza virus vaccine, unspecified formulation Wilder E Cecy Work Phone: [place] [address] DO Work Phone: 01-15-2016 influenza virus vaccine, unspecified formulation Wilder E Ball Work Phone: [place] [address] DO Work Phone: 01-15-2016 pneumococcal conjuga te vaccine, 13 valent Wilder Sam Work Phone: [place] [address] DO Work Phone: 12-26-2015 pneumococcal conjuga te vaccine, 13 valent Kaiser Gómez MD Work Phone: [facility] Work Phone: 01-08-2015 influenza virus vaccine, unspecified formulation Wilder Sam Work Phone: [place] [address] DO Work Phone: 12-20-2013 influenza virus vaccine, unspecified formulation Wilder Sam Work Phone: [place] [address] DO Work Phone: 10-30-2010 zoster vaccine, live Benjami reynaldo Sam Work Phone: [place] [address] DO Work Phone: 03-16-2010 pneumococcal polysaccharide vaccine, 23 valent Wilder Sam Work Phone: [place] [address] DO Work Phone: 03-16-2008 pneumococcal polysaccharide vaccine, 23 valent Wilder Sam Work Phone: [place] [address] DO Work Phone: pneumococcal Conjuga te, unspecified formulation; Translations: [Need for prophylactic vaccination against Streptococcus pneumoniae (pneumococcus)] Nabil Scott Other [facility] [email or web address] Other Payers Date Payer Category Payer Medicare [id number] 2022 Unknown 2021 Medicare [id number] 2021 Self-pay 2020 Unknown [id number] 1959 Medicare [id number] 1959 Private Health Insurance [id number] 1935 Unknown [id number] [id number] 1935 Unknown [id number] 1935 Unknown [id number] [id number] 1935 Unknown [id number] 2.16.840.1.724951.3.579.2.593 1935 Unknown [id number] 2.16.840.1.602101.3.579.2.593 1935 Unknown [id number] 2.16.840.1.366334.3.579.2.593 1935 Unknown [id number] 2.16.840.1.108748.3.579.2.593 1935 Unknown [id number] 2.16.840.1.805476.3.579.2.593 1935 Unknown [id number] 2.16.840.1.988901.3.579.2.593 1935 Unknown [id number] 2.16.840.1.065238.3.579.2.1259 1935 Unknown [id number] 2.16.840.1.683604.3.579.2.727 1935 Unknown [id number] 2.16.840.1.237242.3.579.2.727 1935 Unknown [id number] 2.16.840.1.736390.3.579.2.727 1935 Unknown [id number] 2.16.840.1.219602.3.579.2.727 1935 Unknown [id number] 2.16.840.1.883682.3.579.2.727 1935 Unknown [id number] 2.16.840.1.492781.3.579.2.727 Medicare [id number] [id number] Unknown [id number] 2.16.840.1.696351.3.579.2.531 Unknown [id number] 2.16.840.1.476532.3.579.2.531 Unknown [id number] [id number] Unknown Regular Insurance [id number] Social History Date Type Detail Facility Start: 01-26-2023 No illicit drug use No illicit drug use [facility] 250 DO Work Phone: Comment on above: Twice a week; 1 cup of coffee a da y; Start: 01-26-2023 Sex Assigned At F [facility] Start: 01-26-2023 End: 05-18-2023 Tobacco smoking status NHIS Ex-smoker [facility] Work Phone: History of tobacco use Current smoker [facility] Work Phone: History of tobacco use Cigarette Smoker U [facility] Work Phone: Start: 01-26-2023 Tobacco use and exposure Smokeless tobacco non-user [facility] Work Phone: Start: 01-26-2023 Alcohol intake Lifetime non-d oumar (finding) [facility] Work Phone: Start: 1935 Sex Assigned At Not on file U [facility] Work Phone: Start: 01-16-2023 End: 01-26-2023 Exposure to SARS-CoV-2 (event) Not sure [facility] Tobacco smoking status Never [facility] Start: 1935 Sex Assigned At Male F [facility] Medical Equipment Procedure Code Equipment Code Equipment Origin al Text Equipment Identifier Dates Cystoscopy, with ureteral calculus manipulation and stent placement Polymeric ureteral stent [id number] FDA Start: 11-19-2019 Cystoscopy, with ureteral calculus manipulation and stent placement Polymeric ureteral stent [id number] FDA Start: 11-19-2019 Craniotomy Craniofacial fixation plate, non-bioabsorbable ()[id number] FDA Start: 07-19-2021 Craniotomy Craniofacial fixation plate, non-bioabsorbable ()[id number] FDA Start: 07-19-2021 Craniotomy Craniofacial bon e screw, non-bioabsorbable, sterile ()[id number] [facility] Start: 07-19-2021 Functional Status Date Assessment Result Facility 05-18-2023 Functional Status N/A [facility] 04-09-2023 Functional Status N/A [facility] 02-16-2023 Functional Status N/A [facility] Clinical Notes 07-14-2021 to 05-18-2023 Note Date & Type Note Facility 05-18-2023 Hospital Discharge instructions Patient Education 05/18/2023 11:01:28 Benign Prostatic Hyperplasia Benign Prostatic Hyperplasia Benign prostatic hyperplasia (BPH) is an enlarged prostate gland that is caused by the normal aging process. The prostate may get bigger as a man gets older. The condition is not caused by cancer. The prostate is a walnut-sized gland that is involved in the production of semen. It is located in front of the rectum and below the bladder. The bladder stores urine. The urethra carries stored urine out of the body. An enlarged prostate can press on the urethra. This can make it harder to pass urine. The buildup of urine in the bladder can cause infection. Back pressure and infection may progress to bladder damage and kidney (renal) failure. What are the causes? This condition is part of the normal aging process. However, not all men develop problems from this condition. If the prostate enlarges away from the urethra, urine flow will not be blocked. If it enlarges toward the urethra and compresses it, there will be problems passing urine. What increases the risk? This condition is more likely to develop in men older than 50 years. What are the signs or symptoms? Symptoms of this condition include: Getting up often during the night to urinate. Needing to urinate frequently during the day. Difficulty starting urine flow. Decrease in size and strength of your urine stream. Leaking (dribbling) after urinating. Inability to pass urine. This needs immediate treatment. Inability to completely empty your bladder. Pain when you pass urine. This is more common if there is also an infection. Urinary tract infection (UTI). How is this diagnosed? This condition is diagnosed based on your medical history, a physical exam, and your symptoms. Tests will also be done, such as: A post-void bladder scan. This measures any amount of urine that may remain in your bladder after you finish urinating. A digital rectal exam. In a rectal exam, your health care provider checks your prostate by putting a lubricated, gloved finger into your rectum to feel the back of your prostate gland. This exam detects the size of your gland and any abnormal lumps or growths. An exam of your urine (urinalysis). A prostate specific antigen (PSA) screening. This is a blood test used to screen for prostate cancer. An ultrasound. This test uses sound waves to electronically produce a picture of your prostate gland. Your health care provider may refer you to a specialist in kidney and prostate diseases (urologist). How is this treated? Once symptoms begin, your health care provider will monitor your condition (active surveillance or watchful waiting). Treatment for this condition will depend on the severity of your condition. Treatment may include: Observation and yearly exams. This may be the only treatment needed if your condition and symptoms are mild. Medicines to relieve your symptoms, including: ?Medicines to shrink the prostate. ?Medicines to relax the muscle of the prostate. Surgery in severe cases. Surgery may include: ?Prostatectomy. In this procedure, the prostate tissue is removed completely through an open incision or with a laparoscope or robotics. ?Transurethral resection of the prostate (TURP). In this procedure, a tool is inserted through the opening at the tip of the penis (urethra). It is used to cut away tissue of the inner core of the prostate. The pieces are removed through the same opening of the penis. This removes the blockage. ?Transurethral incision (TUIP). In this procedure, small cuts are made in the prostate. This lessens the prostate's pressure on the urethra. ?Transurethral microwave thermotherapy (TUMT). This procedure uses microwaves to create heat. The heat destroys and removes a small amount of prostate tissue. ?Transurethral needle ablation (TUNA). This procedure uses radio frequencies to destroy and remove a small amount of prostate tissue. ?Interstitial laser coagulation (ILC). This procedure uses a laser to destroy and remove a small amount of prostate tissue. ?Transurethral electrovaporization (TUVP). This procedure uses electrodes to destroy and remove a small amount of prostate tissue. ?Prostatic urethral lift. This procedure inserts an implant to push the lobes of the prostate away from the urethra. Follow these instructions at home: Take ffev-czn-qynduvd and prescription medicines only as told by your health care provider. Monitor your symptoms for any changes. Contact your health care provider with any changes. Avoid drinking large amounts of liquid before going to bed or out in public. Avoid or reduce how much caffeine or alcohol you drink. Give yourself time when you urinate. Keep all follow-up visits. This is important. Contact a health care provider if: You have unexplained back pain. Your symptoms do not get better with treatment. You develop side effects from the medicine you are taking. Your urine becomes very dark or has a bad smell. Your lower abdomen becomes distended and you have trouble passing urine. Get help right away if: You have a fever or chills. You suddenly cannot urinate. You feel light-headed or very dizzy, or you faint. There are large amounts of blood or clots in your urine. Your urinary problems become hard to manage. You develop moderate to severe low back or flank pain. The flank is the side of your body between the ribs and the hip. These symptoms may be an emergency. Get help right away. Call 911. Do not wait to see if the symptoms will go away. Do not drive yourself to the hospital. Summary Benign prostatic hyperplasia (BPH) is an enlarged prostate that is caused by the normal aging process. It is not caused by cancer. An enlarged prostate can press on the urethra. This can make it hard to pass urine. This condition is more likely to develop in men older than 50 years. Get help right away if you suddenly cannot urinate. This information is not intended to replace advice given to you by your health care provider. Make sure you discuss any questions you have with your health care provider. Document Revised: 09/18/2021 Document Reviewed: 09/18/2021 [email or web address] Patient Education 2022 [email or web address] Follow Up Care 05/01/2023 14:20:13 With:CIARA SALAZAR, Jourdan Anderson, URL Address: [facility] [address] , [place] [address]- [phone] When:Within 6 Month(s) Comments:6 mo fu with PVR scan [facility] 05-01-2023 Note [id number]#1.00TIFF [facility] 04-28-2023 Note [id number]#1.00TIFF [facility] 03-30-2023 Evaluation note Encounter Date Diagnosis Assessment Notes Mar, Primary hypertension (ICD-10 - I10) [facility] [email or web address] Other 01-03-2024 Evaluation note* Encounter Date Diagnosis Assessment Notes Treatment Notes Treatment Clinical Notes Mar, Vitamin D deficiency (ICD-10 - E55.9) [facility] [email or web address] Other 12-04-2023 Hospital Discharge instructions Patient Education [...] including vitamins, herbs, eye drops, creams, and cccp-wqk-dtafxps medicines. Any problems you or family members [...] provider tells you to take them. Taking cqqo-jig-gkgoabc medicines, vitamins, herbs, and supplements. Tests You [...] Follow these instructions at home: Medicines Take nymr-lxe-gvbqnqe and prescription medicines only as told by [...] provider. Document Revised: 11/13/2021 Document Reviewed: 10/12/2020 [email or web address] Patient Education 2022 [email or web address] Follow Up Care 01/15/2022 10:12:17 With:CIARA SALAZAR, Jourdan Anderson, URL Address: [facility] [address] , [place] [phone] When: Unknown [facility] Jemma 12-04-2023 NoteUrology Cystoscopy Cystoscopy is [...] including vitamins, herbs, eye drops, creams, and tlhj-dbo-plbvoeh medicines. ? Any problems you or family [...] tells you to take them. ? Taking bmxr-iau-fczliwf medicines, vitamins, herbs, and supplements. Tests You [...] these instructions at home: Medicines ? Take cxan-vxh-rktfjyf and prescription medicines only as told by [...] or the department th (more content not included)...[facility] 02-12-2023 Evaluation note* Encounter Date Diagnosis [...] treatment in ER COntinue secondary preventive measures. [employer] Other 11-13-2023 History of Present illness Narrative* Kaiser Gómez MD - 01/26/2023 9:00 AM EST Subjective Tammi Erum Patel is a 87 y.o. male Chief [...] carotid disease. He continues to travel to [place] annually to be evaluated by the vascular [...] , Rfl: ergocalciferol (Vitamin D-2) 1.25 MG (62565 UT) capsule, Take 1 capsule (1,250 mcg) [...] stenosis Followed by his vascular surgeon in [place] [facility]: 1(950) 892-357411-13-2023 Instructions* Patient Instructions* Gentry Corona MA - [...] time of your visit. [facility] Work Phone: [phone]) 686-606608-31-2023 Evaluation note* Encounter Date Diagnosis Assessment Notes [...] Continue oral vitamin D every 2 weeks. [employer] Other 06-27-2023 Evaluation note* Encounter Date Diagnosis Assessment Notes Treatment Notes Treatment Clinical Notes Aug, Stage 3a chronic kidney disease (ICD-10 - N18.31) [employer] Other 02-14-2023 Evaluation note* Encounter Date Diagnosis Assessment Notes Treatment Notes Treatment Clinical Notes Apr, Elevated cholesterol (ICD-10 - E78.00) [employer] Other 02-02-2023 Evaluation note* Encounter Date Diagnosis [...] Change oral vitamin D every 2 weeks. [employer] Other 12-27-2022 Evaluation note* Encounter Date Diagnosis Assessment Notes Treatment Notes Treatment Clinical Notes Feb, Vitamin D deficiency (ICD-10 - E55.9) [employer] Other 07-07-2022 Evaluation note* Encounter Date Diagnosis [...] Change oral vitamin D every 2 weeks. [employer] Other 07-07-2022 Evaluation note* Encounter Date Diagnosis Assessment Notes Treatment Notes Treatment Clinical Notes Sep, Vitamin D deficiency (ICD-10 - E55.9) [employer] Other 05-16-2022 Evaluation note* Encounter Date Diagnosis Assessment Notes Treatment Notes Treatment Clinical Notes July, Subacute subdural hematoma (ICD-10 - S06.5X9A) The patient will increase his activities as tolerated and we will see him back in about 3 weeks, when he is about a month out from surgery for a repeat CT scan without contrast. [employer] Other 05-01-2022 History general Narrative - Reported* Type Description Date Medical History Kidney stones Medical History Enlarged Prostate Medical History TIA Medical History FALL BRAIN BLEED 07/2021 Surgical History Lithotripsy, multiple Surgical History Lap Rika 2013 Surgical History Total right knee surgery 1997 Surgical History Appendectomy Surgical History Hernia Surgical History UROLIFT 2016 Surgical History CAROTID RIGHT SIDE 12/2018 Surgical History BRAIN BLEED SURGERY IN [facility] 07/2021 Hospitalization History See past surgical hx Hospitalization History KIDNEY STONES [employer] Other evaluation + Plan note No data available for this section [facility] evaluation + Plan note Future Appointments Appointment Date:04/28/2023 11:00:00 AM Scheduled Provider: Location:[facility] Appointment Type:Urology FT [facility] Evaluation + Plan note Future Appointments Appointment Date:11/23/2023 10:30:00 AM Scheduled Provider:Jourdan URBINA MD Location:[facility] Appointment Type:URO Office Visit [facility] evaluation noteNo InformationNort M[employer] Other evaluation note* Diagnosis Mixed hyperlipidemia- Primary Ventricular tachycardia, paroxysmal (CMS/HCC) TIA (transient ischemic attack) Unspecified transient cerebral ischemia History of right-sided carotid endarterectomy Essential hypertension Unspecified essential hypertension Bilateral carotid artery stenosis Occlusion and stenosis of carotid artery without mention of cerebral infarction documented in this encounter [facility] Work Phone: Evaluation note* Diagnosis Onset Date Resolution Status CKD (chronic kidney disease) stage 3, GFR 30-59 ml/min acute [id number] acute Hyperuricemia acute Secondary hyperparathyroidism acute Thrombocytopenia acute Urinary retention due to benign prostatic hyperplasia acute [facility] Work Phone: Evaluation note* Diagnosis Onset Date Resolution Status Hyperuricemia acute Secondary hyperparathyroidism acute Urinary retention due to luisito ign prostatic hyperplasia acute Benign prostatic hyperplasia with lower urinary tract symptoms acute Chronic kidney disease acute Essential (primary) hypertension acute Indwelling Dias catheter present noneactive Gross hematuria noneactive [facility] Work Phone: History general Narrative - [...] past surgical hx Hospitalization History KIDNEY STONES [employer] Other History of Present illness Narrative* Patient [...] merits of a modest diet were reviewed. -[facility] 250 DO Work Phone: History of Present illness [...] merits of a modest diet and weight loss.[facility] 250 DO Work Phone: Hospital Discharge instructions No data available for this section [facility] Progress note No data available for this section [facility] reason for referral (narrative)* Consultation (Routine) - Authorized Specialty Diagnoses / Procedures Referred By Alex oconnell Referred To Contact Cardiology Diagnoses Bilateral carotid artery stenosis Procedures Follow Up In Cardiology Kaiser Gómez MD [address] [place] [id number] Kaiser Gómez MD [address] [place] [id number] Referral ID Status Reason Start Date Expiration Date V isits Requested Visits Authorized [id number] Authorized 01/26/2023 01/26/2024 1 1 [facility] Work Phone: Summary Purpose Family History No Family History Records FoundUnknown Family Member Name Dates Details No pertinent family history: Mother, Father, Sibling(V49.89, Z78.9) Status:Active Unknown Family Member Name Dates Details No pertinent family history: Mother, Father, Sibling(V49.89, Z78.9) Status:Active Relationship Condition Age at Onset Recorded Date/T rogelio brother Unknown Malignant neoplasm Unknown father Unknown Not Specified History of stroke Unknown Unknown sister History of stroke Unknown Hypertension Unknown Advance Directives No Advanced Directives Records Found Advance Directive Response Recorded Date/ Time Advance Directives No August 26 2:14pm Chief Complaint TAMMI PATEL is being seen for an annual follow-up of.TAMMI PATEL is being seen for a 9 month follow-up of. 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 prostatic hyperplasia Chief Complaint Medicare Wellness renal 6 month f/u [facility] ER Follow Up Reason for Visit Hyperuricemia Secondary hyperparathyroidism Urinary retention due to benign prostatic hyperplasia Benign prostatic hyperplasia with lower urinary tract symptoms Chronic kidney disease Essential (primary) hypertension Indwelling Dias catheter present Gross hematuria Additional Source Comments (unrecognized sect ion and content) No Status Records FoundNo Status Records FoundNo Status Records FoundNo Status Records FoundNo Status Records FoundNo Status Records FoundNo Status Records FoundNo Status Records Found INFORMATION SOURCE (unrecogn ized section and content) DATE CREATED AUTHOR 09/17/2017 [facility] DATE CREATED AUTHOR AUTHOR'S ORGANIZ ATION 09/04/2018 [facility] DATE CREATED AUTHOR AUTHOR'S ORGANIZ ATION 01/16/2022 [facility] DATE CREATED AUTHOR AUTHOR'S ORGANIZ ATION 01/16/2022 [facility] DATE CREATED AUTHOR AUTHOR'S ORGANIZ ATION 04/19/2022 [facility] DATE CREATED AUTHOR AUTHOR'S ORGANIZ ATION 07/24/2022 [facility] DATE CREATED AUTHOR AUTHOR'S ORGANIZ ATION 04/17/2023 [facility] EPIC DATE CREATED AUTHOR AUTHOR'S ORGANIZ ATION 06/03/2023 [facility] REASON FOR VISIT (unrecogniz ed section and content) Reason Comments Annual Exam Care Teams (unrecognized sec tion and content) [employer] Relationship Specialty Start Date End Date Wilder Sam DO [address] [place] [address] PCP - General 04/09/21 Team Status: Active Member Role Status Dates Wilder Sam DO Primary Care Provider Active Team Status: Inactive Member Role Status Dates Wilder Sam DO Attending Provider Active Sta rt: February 12, 2023 End: February 12, 2023 Team Status: Inactive Member Role Status Dates Wilder Sam DO Primary Care Provider Active Start: April 30, 2023 End: April 30, 2023 Nabil Scott MD Attending Provider Active Start : April 30, 2023 End: April 30, 2023 Team Status: Inactive Member Role Status Dates Wilder Sam DO Primary Care Provide r, Attending Provider Active Start: May 08, 2023 End: May 08, 2023 Goals (unrecognized section and content) Goals may be documented in a n alternate section FOR RECORDS PERTAINING TO PATIENTS WHO ARE [...] BE BASED ON THE PRIMARY CLINICAL RECORDS. [facility]. provides no warranty or guarantee of the accuracy or completeness of information in this document.
--- NOTE | 2023-06-14 15:29 | ECG_ITS ---
[facility] Test Date: 2023-06-14 Pat Name: TAMMI YI Department: Room: - Gender: Male Naturopathic Oncology Provider: : 1935 Requested By: NADIRA SAM Order Number: [id number] Reading MD: NADIRA SAM Measurements Intervals [place] Rate: 105 P: 51 DE: 168 QRS: -53 QRSD: 108 T: 73 QT: 338 QTc: 399 Interpretive Statements 1120 Sinus tachycardia 1474 with frequent supraventricular premature complexes 2630 Left anterior fascicular block 4068 Nonspecific Twave abnormality 8003 Consistent with pulmonary disease 9150 abnormal ECG Compared to ECG 04/21/2023 16:59:10 Sinus rhythm no longer present ST (T wave) deviation no longer present Electronically Signed On 06-14-2023 20:26:17 EDT by NADIRA SAM
--- NOTE | 2023-06-14 15:29 | US_ITS ---
The [address] [address] Patient Name: TAMMI RICHMOND MRN: [id number] date: 1935 Sex: M Assigned Patient Location: ER Current Patient Location: ER Accession/Order Number: [id number] Exam Date: 06/14/2023 16:30 Report Date: 06/14/2023 18:10 At the request of: TOM MCCONNELL Procedure: US scrotum EXAM: US scrotum HISTORY: bilateral testicles red, painful COMPARISON: None. TECHNIQUE: Testicular ultrasound is performed. Multiple mata scale and color Doppler images are submitted for review. FINDINGS: The right testicle measures 5.6 x 1.9 x 2.9 cm and demonstrates normal morphology with homogeneous echotexture and normal Doppler flow. The right epididymis measures 9.5 mm diameter and demonstrates normal echogenicity right hydrocele is seen. Right varicocele is also noted. The left testicle measures 4.1 x 2.9 x 2.9 cm and demonstrates normal morphology. The left testicle demonstrates increased vascularity. The left at the epididymis measures 0.66 cm in diameter and appears hypervascular. Fluid collection with debris is seen surrounding the left testicle. Left hydrocele is seen. Left varicocele is noted. US/US scrotum IMPRESSION: Increased vascularity of the left testicle and epididymis, suggestive of left epididymo-orchitis. Fluid collection with debris seen surrounding the left testicle, suspicious for left complex hydrocele. Pyocele and hematocele are also considered. Bilateral hydrocele and varicocele. Electronically authenticated by: DANIELLE IBANEZ Date: 06/14/2023 18:10
--- NOTE | 2023-06-14 15:31 | ED_ITS ---
HPI - Weakness General Chief complaint: Weakness Stated complaint: WEAKNESS Time Seen by Provider: 06/14/23 15:23 Source: patient Mode of arrival: Carry History of Present Illness HPI Narrative: Patient is an 87-year-old male who presents to the emergency department with his for the evaluation of not feeling well and generalized weakness today. Patient has a history of Parkinson's. He has essentially no focal medical complaints on evaluation, he denies any pain, injuries, syncope, fevers, chills, nausea, vomiting, chest pain, shortness of breath. Patient states for the last day he has had perceived swelling and tenderness to the bilateral testicles. He had an indwelling Dias catheter that was removed several weeks ago. He states he is able to urinate but feels as though it may be more difficult for him to go today. Patient denies any abdominal pain or flank pain. No medications taken prior to arrival. Patient's states that her primary concern and reason they came to the emergency department is because the patient was complaining of pain in the testicles. Related Data Home Medications ?Medication ?Instructions ?Recorded ?Confirmed aspirin 81 mg tablet,delayed 81 mg PO DAILY 04/01/23 04/01/23 release (Adult Aspirin Regimen) atorvastatin 40 mg tablet 40 mg PO DAILY 04/01/23 04/01/23 carbidopa 10 mg-levodopa 100 mg 1 tab PO QID 04/01/23 04/01/23 tablet (Sinemet) ergocalciferol (vitamin D2) 50,000 50,000 unit PO DAILY 04/01/23 04/01/23 unit tablet hydrochlorothiazide 12.5 mg tablet 12.5 mg PO DAILY 04/01/23 04/01/23 lutein 25 mg-zeaxanthin 5 mg cap PO DAILY 04/01/23 capsule (Ocuvite Blue Light) potassium bicarbonate-citric acid 25 meq PO BID 04/01/23 04/01/23 25 mEq effervescent tablet (Klor-Con/EF) tamsulosin 0.4 mg capsule (Flomax) 0.4 mg PO DAILY 04/01/23 04/01/23 Previous Rx's ?Medication ?Instructions ?Recorded doxycycline hyclate 100 mg capsule 100 mg PO BID 7 days #14 caps 04/06/23 cephalexin 500 mg capsule 500 mg PO Q8H 7 days #21 caps 04/21/23 ondansetron 4 mg disintegrating 4 mg PO Q6H PRN nausea and 04/21/23 tablet vomiting #12 tabs Allergies Allergy/AdvReac Type Severity Reaction Status Date / Time No Known Drug Allergies Allergy Verified 04/06/23 07:50 Review of Systems ROS Constitutional Reports: chills; Denies: fever Ears, nose, mouth, and throat Denies: throat pain or nasal congestion Cardiovascular Denies: chest pain Respiratory Denies: shortness of breath or cough Gastrointestinal Denies: abdominal pain, nausea, vomiting or diarrhea Genitourinary Reports: testicular pain Musculoskeletal Denies: back pain Integumentary/Breast Denies: rash Neurological Denies: headache Hematologic/Lymphatic Denies: easy bruising or easy bleeding PFSH ON LICENSE OF [facility] Medical History (Updated 06/14/23 @ 18:29 by JOLLY Lucero) Cataract ?H26.9 - Unspecified cataract (ICD-10) Urgency of urination ?R39.15 - Urgency of urination (ICD-10) Transient ischemic attack ?G45.9 - Transient cerebral ischemic attack, unspecified (ICD-10) Recurrent UTI ?N39.0 - Urinary tract infection, site not specified (ICD-10) Nocturia ?R35.1 - Nocturia (ICD-10) Kidney stones ?N20.0 - Calculus of kidney (ICD-10) Hypertension ?I10 - Essential (primary) hypertension (ICD-10) Hesitancy of micturition ?R39.11 - Hesitancy of micturition (ICD-10) Gross hematuria ?R31.0 - Gross hematuria (ICD-10) 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 - Benign prostatic hyperplasia with lower urinary tract symptoms (ICD- 10) ?N13.8 - Other obstructive and reflux uropathy (ICD-10) Back pain ?M54.9 - Dorsalgia, unspecified (ICD-10) Abdominal pain ?R10.9 - Unspecified abdominal pain (ICD-10) Surgical History (Updated 04/01/23 @ 10:23 by Mauricio Llanes) 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 - Presence of unspecified artificial knee joint (ICD-10) H/O hernia repair ?Z98.890 - Other specified postprocedural states (ICD-10) ?Z87.19 - Personal history of other diseases of the digestive system (ICD-10) Hx of appendectomy ?Z90.49 - Acquired absence of other specified parts of digestive tract (ICD- 10) H/O cystoscopy ?Z98.890 - Other specified postprocedural states (ICD-10) H/O lithotripsy ?Z98.890 - Other specified postprocedural states (ICD-10) Family History (Updated 04/01/23 @ 10:24 by Mauricio Llanes) Brother Kidney stones Sister Kidney stones Father Family history of cancer Social History Within the past year, how often did you have a drink containing alcohol: never Score interpretation: A score less than 4 is consistent with normal alcohol consumption. Smoking status: Never smoker Non-prescribed substance use: denies use Exam Narrative Exam Narrative: Gen.: Awake, alert, in no distress Head: Normocephalic, atraumatic ENT: Moist mucous membranes Respiratory: No respiratory distress, lungs clear bilaterally Cardio: Regular rate and rhythm Gastrointestinal: Abdomen is soft, nondistended and nontender to palpation : Bilateral testicles are mildly tender to palpation, no appreciable swelling, wounds or drainage from the scrotum. Scrotum is diffusely mildly erythematous. No swelling or tenderness of the penis. Patient is uncircumcised. Extremities: Moves extremities equally Psych: Normal mood and affect Neuro: No focal neuro deficit Skin: Warm, dry, intact Constitutional Vital Signs, click to edit/add: Last Vital Signs Temp 101.3 F H 06/14/23 17:08 Pulse 108 H 06/14/23 17:08 Resp 20 06/14/23 17:08 BP 143/82 H 06/14/23 15:15 Pulse Ox 96 06/14/23 15:29 O2 Del Method Room Air 06/14/23 15:29 Course Vital Signs Vital signs: Vital Signs Temperature 98.7 F 06/14/23 14:31 Pulse Rate 95 H 06/14/23 14:31 Respiratory Rate 16 06/14/23 14:31 Blood Pressure 126/71 06/14/23 14:31 Pulse Oximetry 98 06/14/23 14:31 Oxygen Delivery Method Room Air 06/14/23 14:31 Temperature 101.3 F H 06/14/23 17:08 Pulse Rate 108 H 06/14/23 17:08 Respiratory Rate 20 06/14/23 17:08 Blood Pressure 143/82 H 06/14/23 15:15 Pulse Oximetry 96 06/14/23 15:29 Oxygen Delivery Method Room Air 06/14/23 15:29 MDM - Weakness MDM Narrative Medical decision making narrative: Called to the ER, patient had stable vital signs, mild tachycardia. Fluids were initiated and sepsis labs were ordered including blood cultures. Bladder scan shows the patient is not retaining urine, ultrasound of the scrotum shows left testicle with epididymitis/orchitis. Patient has a nitrate positive urinary tract infection. He does not currently have a Dias catheter and was able to produce a urine specimen. The remainder of the labs show mild leukocytosis with stable chronic kidney disease. Lactic acid is normal. Patient was reevaluated and found to have a temperature of 101.3 Fahrenheit. Tylenol was given for this. He is hemodynamically stable at time of admission for UTI/epididymitis- orchitis and sepsis. Patient and are agreeable to treatment plan. Additional Levaquin given for antibiotic coverage. Medical Records Attestation: I reviewed the patient's medical records. Lab Data Attestation: I reviewed the patient's lab results. Labs: Lab Results 06/14/23 06/14/23 06/14/23 Range/Units 15:24 15:50 17:50 WBC 12.2 H (4.0-11.0) 10^3/uL RBC 4.19 L (4.70-6.10) 10^6/uL Hgb 12.5 L (14.0-18.0) g/dL Hct 37.3 L (42.0-54.0) % MCV 89.0 (80.0-94.0) fL MCH 29.8 (25.9-34.0) pg MCHC 33.5 (29.9-35.2) g/dL RDW 13.9 (11.0-15.0) % Plt Count 136 L (150-450) 10^3/uL MPV 10.0 (9.5-13.5) fL Neut % (Auto) 82.7 H (43.0-75.0) % Lymph % (Auto) 5.8 L (20.5-60.0) % [place] % (Auto) 10.6 (1.7-12.0) % Eos % (Auto) 0.4 L (0.9-7.0) % Baso % (Auto) 0.2 (0.2-2.0) % Neut # (Auto) 10.1 H (1.4-6.5) 10^3/uL Lymph # (Auto) 0.7 L (1.2-3.8) 10^3/uL [place] # (Auto) 1.3 H (0.3-0.8) 10^3/uL Eos # (Auto) 0.1 (0.0-0.7) 10^3/uL Baso # (Auto) 0.0 (0.0-0.1) 10^3/uL Abs Immat Gran (auto) 0.04 H (0.00-0.03) 10^3/uL Imm/Tot Granulo (auto) 0.3 (0.0-0.5) % VBG pH 7.473 H (7.330-7.430) VBG pCO2 37.1 L (40.0-52.0) mmHg Sodium 137 (136-145) mmol/L Potassium 4.0 (3.5-5.1) mmol/L Chloride 100 (98-107) mmol/L Carbon Dioxide 27.5 (21.0-32.0) mmol/L Anion Gap 13.5 BUN 29.0 H (7.0-18.0) mg/dL Creatinine 1.59 H (0.70-1.30) mg/dL Est GFR ( Amer) 50 L (>=60) Est GFR (Non-Af Amer) 41 L (>=60) BUN/Creatinine Ratio 18.2 Glucose 136 H (74-106) mg/dL Lactate 2.0 (0.4-2.0) mmol/L Calcium 9.0 (8.5-10.1) mg/dL Total Bilirubin 2.9 H (0.2-1.0) mg/dL AST 19 (15-37) U/L ALT <6 L (16-63) U/L Alkaline Phosphatase 88 (46-116) U/L Troponin I High Sens 12.9 (4.0-76.1) pg/mL Total Protein 6.8 (6.4-8.2) g/dL Albumin 3.4 (3.4-5.0) g/dL Globulin 3.4 g/dL Albumin/Globulin Ratio 1.0 Procalcitonin 0.15 (0.00-0.50) ng/mL TSH 0.547 (0.358-3.740) uIU/mL Urine Color Lt. yellow (YELLOW) Urine Clarity Clear (CLEAR) Urine pH 6.5 (5.0-9.0) Ur Specific Chappell 1.015 (1.005-1.025) Urine Protein Negative (NEG/TRACE) mg/dL Urine Glucose (UA) Negative (NEGATIVE) mg/dL Urine Ketones Negative (NEGATIVE) mg/dL Urine Occult Blood Negative (NEGATIVE) Urine Nitrite Positive A (NEGATIVE) Urine Bilirubin Negative (NEGATIVE) Urine Urobilinogen 4.0 A (0.2-1.0) EU/dL Ur Leukocyte Esterase Small A (NEGATIVE) Urine RBC 2-5 A (0-2) #/HPF Urine WBC 5-10 A (NONE SEEN) #/HPF Ur Squamous Epith Cells None seen (NONE/RARE) #/LPF Urine Crystals None seen (None Seen) #/HPF Urine Bacteria Moderate A (NONE SEEN) #/HPF Urine Casts None seen (NONE SEEN) #/LPF Urine Mucus None seen (NONE SEEN) Ur Culture Indicated? Yes Imaging Data Chest x-ray: Attestation: I have reviewed the pertinent imaging results. Radiologist's impression: ITS Impressions Scrotum Ultrasound 06/14/23 15:29 IMPRESSION: Increased vascularity of the left testicle and epididymis, suggestive of left epididymo-orchitis. Fluid collection with debris seen surrounding the left testicle, suspicious for left complex hydrocele. Pyocele and hematocele are also considered. Bilateral hydrocele and varicocele. Electronically authenticated by: DANIELLE IBANEZ Date: 06/14/2023 18:10 ECG Data Attestation: I personally reviewed and interpreted this ECG as follows: (Sinus tachycardia at a rate of 105, frequent PVCs with no acute ST elevation. EKG reviewed by attending physician) Discharge Plan Discharge Chief Complaint: Weakness Patient Disposition: Admitted As Inpatient Time of Disposition Decision: 18:29 Prescriptions / Home Meds: No Action cephalexin 500 mg capsule 500 mg PO Q8H 7 Days Qty: 21 0RF ondansetron 4 mg tablet,disintegrating 4 mg PO Q6H PRN (Reason: nausea and vomiting) Qty: 12 0RF aspirin [Adult Aspirin Regimen] 81 mg tablet,delayed release (DR/EC) 81 mg PO DAILY atorvastatin 40 mg tablet 40 mg PO DAILY ergocalciferol (vitamin D2) 50,000 unit tablet 50,000 unit PO DAILY tamsulosin [Flomax] 0.4 mg capsule 0.4 mg PO DAILY hydrochlorothiazide 12.5 mg tablet 12.5 mg PO DAILY Klor-Con/EF 25 mEq tablet, effervescent 25 meq PO BID lutein-zeaxanthin [Ocuvite Blue Light] 25-5 mg capsule PO DAILY carbidopa-levodopa [Sinemet] 10-100 mg tablet 1 tab PO QID doxycycline hyclate 100 mg capsule 100 mg PO BID 7 Days Qty: 14 0RF Print Language: Bulgarian Referrals: Wilder Kay DO [Primary Care Provider] - 1 week
[2023-06-14 15:38] LABS: Basophils Percent Auto 0.2 % (0.2-2.0); Eosinophils Absolute Auto 0.1 10^3/uL (0.0-0.7); Eosinophils Percent Auto 0.4 % (0.9-7.0); Hematocrit 37.3 % (42.0-54.0); Hemoglobin 12.5 g/dL (14.0-18.0); Immature Granulocytes Abs Auto 0.04 10^3/uL (0.00-0.03); Immature Granulocytes Pct Auto 0.3 % (0.0-0.5); Lymphocytes Absolute Auto 0.7 10^3/uL (1.2-3.8); Lymphocytes Percent Auto 5.8 % (20.5-60.0); Mean Corpuscular HGB Conc 33.5 g/dL (29.9-35.2); Mean Corpuscular Hemoglobin 29.8 pg (25.9-34.0); Monocytes Absolute Auto 1.3 10^3/uL (0.3-0.8); Monocytes Percent Auto 10.6 % (1.7-12.0); Neutrophils Absolute Auto 10.1 10^3/uL (1.4-6.5); Neutrophils Percent Auto 82.7 % (43.0-75.0); Platelet Count 136 10^3/uL (150-450); Red Blood Count 4.19 10^6/uL (4.70-6.10); Red Cell Distribution Width 13.9 % (11.0-15.0); White Blood Count 12.2 10^3/uL (4.0-11.0)
[2023-06-14] MEDS: 0.9 % SODIUM CHLORIDE 1,000 ML 999 ML IV (15:52)
[2023-06-14 15:58] LABS: Albumin Level 3.4 g/dL (3.4-5.0); Alkaline Phosphatase 88 U/L (46-116); Anion Gap 13.5; Aspartate Amino Transferase 19 U/L (15-37); BUN Creatinine Ratio 18.2; Bilirubin Total 2.9 mg/dL (0.2-1.0); Carbon Dioxide 27.5 mmol/L (21.0-32.0); Chloride 100 mmol/L (98-107); Estimated GFR (African America 50 (>=60); Estimated GFR (Non-African Ame 41 (>=60); Globulin 3.4 g/dL; Glucose 136 mg/dL (74-106); Sodium 137 mmol/L (136-145); Thyroid Stimulating Hormone 0.547 uIU/mL (0.358-3.740); Total Protein 6.8 g/dL (6.4-8.2); Troponin I High Sensitivity 12.9 pg/mL (4.0-76.1)
[2023-06-14 16:10] LABS: Alanine Aminotransferase <6 U/L (16-63)
[2023-06-14 16:14] LABS: PCO2 VBG 37.1 mmHg (40.0-52.0); pH VBG 7.473 (7.330-7.430)
[2023-06-14 16:17] LABS: PROCALCITONIN 0.15 ng/mL (0.00-0.50)
[2023-06-14] MEDS: ONDANSETRON PF 4 MG/2 ML VIAL IV (16:54)
--- NOTE | 2023-06-14 17:46 | XR_ITS ---
[address] [address] Patient Name: TAMMI RICHMOND MRN: [id number] date: 1935 Sex: M Assigned Patient Location: ER Current Patient Location: ED.MAIN Accession/Order Number: [id number] Exam Date: 06/14/2023 18:00 Report Date: 06/14/2023 18:58 At the request of: TOM MCCONNELL Procedure: XR chest 1V PORTABLE CHEST X-RAY. INDICATION: Fever. COMPARISON: None. TECHNIQUE: Single AP portable chest radiograph. FINDINGS: TUBES AND LINES: None. LUNGS: Lungs are clear. PLEURA: No effusions or pneumothorax. HEART AND MEDIASTINUM: Cardiomegaly. OSSEOUS STRUCTURES: No acute abnormality. XR/XR chest 1V IMPRESSION: No acute findings. Electronically authenticated by: ADRIA OCAMPO Date: 06/14/2023 18:58
[2023-06-14 18:03] LABS: Bilirubin Urine NEGATIVE (NEGATIVE); Blood Urine NEGATIVE (NEGATIVE); Clarity Urine CLEAR (CLEAR); Color Urine LT. YELLOW (YELLOW); Glucose Urine UA NEGATIVE (NEGATIVE); Ketones Urine NEGATIVE (NEGATIVE); Leukocyte Esterase Urine SMALL (NEGATIVE); Nitrite Urine POSITIVE (NEGATIVE); Protein Urine NEGATIVE (NEG/TRACE); Specific Gravity Urine 1.015 (1.005-1.025); pH Urine 6.5 (5.0-9.0)
[2023-06-14 18:08] LABS: Urine Microscopic Indicated YES
[2023-06-14 18:13] LABS: Bacteria Urine MODERATE #/HPF (NONE SEEN); Cast Seen? NONE SEEN #/LPF (NONE SEEN); Crystals Seen? None Seen #/HPF (None Seen); Mucus Urine NONE SEEN (NONE SEEN); Squamous Epithelial Cell Urine NONE SEEN #/LPF (NONE/RARE); Urine Culture Indicated YES
[2023-06-14] MEDS: CEFTRIAXONE 1,000 MG in 0.9 % SODIUM CHLORIDE 50 ML 100 MG IV (18:19)
[2023-06-14] MEDS: ACETAMINOPHEN 500 MG TABLET 1000 MG PO (18:19)
[2023-06-14 18:59] LABS: Lactate/Lactic Acid 1.7 mmol/L (0.4-2.0)
[2023-06-14] MEDS: LEVOFLOXACIN IN DEXTROSE 5 % 750 MG/150 ML IV.SOLN 100 MG IV (19:10)
--- OUTSIDE RECORDS SUMMARY | 2023-06-14 20:47 | XMS_ITS | CCD ---
Author Organization [facility] Care Team Providers Care Carton Counter Feeder Name Role Phone DONOVAN CASTORENA Unavailable Unavailable [...] Unavailable CECY, DR HDZ Primary Care Unavailable JUNEAU, DR VANI Gabriel Consult[employer] Unavailable CECY, DR [...] Care Provider WILDER SAM Primary Care Physician ASIA PALOMINO Attending Unavailable URBINA, Jourdan Anderson [...] Status: Ordered take 2 tablets by [facility] every twenty-four hours Atorvastatin Calcium [...] 11/17/19 Status: Ordered take 1 tablet by [facility] four times daily Carbidopa-Levodopa 25-100 MG TAKE 1 TABLET BY MOUTH FOUR TIMES DAILY Oral for 90 Days Active cephalexin 250 mg oral capsule (4 sources) Cephalosporin Antibacterial Start: 02-16-2023 End: 02-26-2023 take 1 capsule by mouth twice daily Keflex 250 mg Cap 250 mg = 1 cap(s), Oral, BID, X 10 day(s), # 20 cap(s), Refills(s) 0, Pharmacy: [facility], 177, cm, 02/16/23 10:45:00 EST, Height/Length Dosing, 85, kg, 02/16/23 10:45:00 EST, Weight Dosing Start Date: 02/16/23 Stop Date: 02/26/23 Status: Ordered Start: 08-14-2021 take 1 capsule by [facility] twice daily Cephalexin 500 MG Oral Capsule [...] every week Vitamin D (Ergocalciferol) 1.25 MG (20420 UT) Oral Capsule TAKE 1 CAPSULE BY MOUTH EVERY week Quantity: 12 Refills: 0 Ordered: 30-Apr-2021 DO Start : 14-Feb-2021 Complete take 1 capsule by mo [facility] every other week Ergocalciferol 1.25 MG (36838 UT) 1 capsule Orally Q2 weeks for 90 days Active take 1 capsule by mo [facility] every week ergocalciferol (Vitamin D-2) 1.25 MG (98962 UT) capsule Take 1 capsule (1,250 mcg) [...] 17, 2019 11:00pm July 15, 2021 1:12pm Jd-Hk-Qh3-Dik-Hql-Ftdy-Lut-Z ea (Ocuvite Adult 50 Plus) 250 mg (90 mg-160 mg) capsule (2 sources) Start: 04-30-2023 take 1 capsule by mouth twice daily Em-Jw-Xp3-Qla-Wuk-Yvey-Lut-Paulo (Ocuvite Adult 50 Plus) 250 mg (90 [...] discomfort, # 30 tab(s), Refills(s) 0, Pharmacy: [facility], 177, cm, 02/16/23 10:45:00 EST, Height/Length [...] Daily, # 30 cap(s), Refills(s) 11, Pharmacy: [facility], 177, cm, 01/15/22 9:44:00 EDT, Height/Length [...] procedure, # 2 tab(s), Refills(s) 0, Pharmacy: [facility], 177, cm, 02/16/23 10:45:00 EST, Height/Length [...] Ordered: 09-Apr-2021 DO Active polyethylene glycol 3350 690432 mg / potassium chloride 2980 mg / sodium bicarbonate 6720 mg / sodium chloride 5840 mg / sodium sulfate 00844 mg powder for oral solution (2 sources) [...] BID, # 60 tab(s), Refills(s) 11, Pharmacy: [facility], 177, cm, 01/15/22 9:44:00 EDT, Height/Length [...] current use of drug therapy; Translations: [Other mcc (current) drug therapy] Episodic Other circulatory disease [...] 07-29-2021 Episodic Other aftercare (1 source) Other mcc (current) drug therapy; Translations: [OTH HALFWAY CURRENT DRUG THERAPY] Onset: 12-23-2021 Episodic Other aftercare (1 source) [facility] (current) use of aspirin; 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] Onset: 12-23-2021 Episodic Other gastrointestinal disorders (4 sources) Constipation, unspecified; Translations: [CONSTIPATION UNSPECIFIED] Onset: 12-21-2021 Episodic Unclassified (1 source) Onset: 01-26-2023 01-26-2023 Results Test Name Value Interpretation Reference Range Facility Consent for Procedure/Surger yon 06-02-2023 Consent for Procedure/Surgery [id number]#1.00TIFF Normal [facility] IntraOperative Documentson 0 06-02-2023 IntraOperative Documents [id number]#1.00TIFF Normal [facility] Lab Reportson 05-18-2023 Lab Reports [id number]#1.00TIFF Normal [facility] Patient Educationon 05-18-19 Patient Education Urology Benign [...] Follow these instructions at home: ? Take nkvr-bao-dtbqxqc and prescription medicines only as told by [...] the medicine (more content not included)... Normal [facility] Urology Office/Clinic Noteon 05-18-2023 Urology Office/Clinic Note Chief Complaint Discuss Uro's HPI Staff Pt last seen in our office 02/16/23 due to Recurrent UTI, BPH & Kidny Stone. *Effer K 25meq BID. Also started on Keflex 250mg BID [id number] that day. S/P Cysto 04/06/23 *Catheter placed, dc'd home with 1wk Doxy therapy (per EMR messages- bladder looked like snow globe) Urodynamics completed 04/28/23 Catheter removed in our office today. Pt's is concerned as to why pt had catheter. Is it needed intermodal customer service? Pt did have a couple hematuria/dark urine [...] [facility] [address], [place] [address] [phone] Additional Instructions: 6 mo fu with PVR [...] 0.4 mg= (more content not included)... Normal [facility] Comment on above: Result Comment: Elec tronically [...] and pvr scan. -Take Keflex 250mg bid [id number]. Rx sent to in [place]. -Will schedule cystoscopy with PVR. The risks [...] When Contact Information CIARA SALAZAR, Jourdan Anderson, [facility] [address], [place] [address] [phone] Additional Instructions: sched cysto Patient Education Cystoscopy [...] Use:. Cigarettes, H (more content not included)... [facility] Comment on above: Result Comment: Elec tronically Signed By: Daisy Meadows\.br\Date and Time Signed: 04/30/23 14:08 EST IntraOperative Documentson 0 04-29-2023 IntraOperative Documents [id number]#1.00TIFF [facility] Consent for Procedure/Surger yon 04-28-2023 Consent for Procedure/Surgery [id number]#1.00TIFF [facility] Consent for Treatmenton 04-16 Consent for Treatment [id number]#1.00TIFF [facility] ED Note-Physicianon 04-28-19 ED Note-Physician [id number]#1.00TIFF [facility] IntraOperative Documentson 0 04-28-2023 IntraOperative Documents [id number]#1.00TIFF [facility] Ambulatory Visit Summaryon 0 04-09-2023 Ambulatory Visit [...] for choosing us for your care. Normal [facility] Operative Reporton Operative Report [id number]#1.00TIFF [facility] Consent for Procedure/Surger yon 02-20-2023 Consent for Procedure/Surgery [id number]#1.00TIFF [facility] RAD - MISCon 02-20-2023 RAD - MISC [id number]#1.00TIFF [facility] Ambulatory Visit Summaryon 1 04-19-2022 Ambulatory Visit Summary TAMMI PATEL :1935 Visit Date:02/16/2023 Ambulatory Visit Instructions Your Diagnosis Recurrent UTI BPH with urinary obstruction Kidney stone Tests Performed Urnls Dip Stick Auto w/o Microscopy POC 99739 Your Care Team Attending Physician - CIARA [...] [facility] [address] , [place] [address] [phone] Medications What How Much When Instructions New cephalexin (Keflex 250 mg Cap) 1 Capsules By Mouth 2 times a day Duration: 10 Days Pickup at [facility] Unchanged aspirin (aspirin 81 mg oral [...] physician if questions or concerns Pharmacy Information [facility]: [address] [place] [phone] Test Results Urnls Dip Stick Auto w/o Microscopy POC 26032 (02/16/2023) Bilirubin Urine Dipstick - Negative Blood Urine Dipstick - Trace-lysed Glucose Urine Dipstick - Negative Ketones Urine Dipstick - Trace - 5 mg/dl Leukocytes Urine Dipstick - 1+ Small Nitrite Urine Dipstick - Positive Protein Urine Dipstick - 1+ (30 mg/dl) Specific Greene Urine Dipstick - 1.025 Urine Appearance Urine [...] a uri (more content not included)... Normal [facility] Physician Orderon 01-13-2023 Physician Order [id number]#1.00TIFF Normal [facility] LIPID PROFILEon 07-16-2022 CHOL-HDL RATIO NORM SEE BELOW Normal [facility] Comment on above: Result Comment: 3.3 - 4.4 LOW RISK 4.4 - 7.1 AVERAGE RISK 7.1 - 11.0 MODERATE RISK >11.0 HIGH RISK Performed By: #### L IPID, AST, BMP #### [facility] [address] [address] [address] Anu Magdaleno Cholesterol [Mass/Vol] 105 mg/dL Normal <=200 [facility] Comment on above: Performed By: #### L IPID, AST, BMP #### [facility] [address] [address] [address] Anu Magdaleno Cholesterol in HDL [Mass/Vol] 47 mg/dL Normal 40-60 [facility] Comment on above: Performed By: #### L IPID, AST, BMP #### [facility] [address] [address] [address] Anu Magdaleno Cholesterol in LDL [Mass/Vol] 46.2 mg/dL Normal [facility] Comment on above: Performed By: #### L IPID, AST, BMP #### [facility] [address] [address] [address] Anu Magdaleno Cholesterol.total/ Cholesterol in HDL [Mass ratio] 2.2 {ratio} Normal [facility] Comment on above: Performed By: #### L IPID, AST, BMP #### [facility] [address] [address] [address] Anu Magdaleno HDL NORMAL > or = 60 mg/dl - LO W CARDIOVASCULAR RISK <40 mg/dl - HIGH CARDIOVASCULAR RISK Normal [facility] Comment on above: Performed By: #### L IPID, AST, BMP #### [facility] [address] [place] [address] Dr. Anu Magdaleno LDL CALC NORMAL SEE BELOW Normal [facility] Comment on above: Result Comment: <100 mg/dl OPTIMAL 100 - 129 mg/dl NEAR OR ABOVE OPTIMAL 130 - 159 mg/dl BORDERLINE HIGH 160 - 189 mg/dl HIGH >190 mg/dl VERY HIGH Performed By: #### L IPID, AST, BMP #### [facility] [address] [place] [address] Dr. Anu Magdaleno Triglyceride [Mass/Vol] 59 mg/dL Normal <=150 [facility] Comment on above: Performed By: #### L IPID, AST, BMP #### [facility] [address] [place] [address] Dr. Anu Magdaleno VLDL CALC 11.8 mg/dL Normal [facility] Comment on above: Performed By: #### L IPID, AST, BMP #### [facility] [address] [place] [address] Dr. Anu Magdaleno PROF CHEM 8 (BAS METB)on Anion gap [Moles/Vol] 13.1 mmol/L Normal [facility] Comment on above: Performed By: #### F ERR, FETIBC, VITB12 #### [facility] [address] [place] [address] Dr. Anu Magdaleno Calcium [Mass/Vol] 9.2 mg/dL Normal 8.5-10.1 [facility] Comment on above: Performed By: #### F ERR, FETIBC, VITB12 #### [facility] [address] [place] [address] Dr. Anu Magdaleno Chloride [Moles/Vol] 102 mmol/L Normal 98-107 [facility] Comment on above: Performed By: #### F ERR, FETIBC, VITB12 #### [facility] [address] [place] [address] Dr. Anu Magdaleno CO2 [Moles/Vol] 28.3 mmol/L Normal 21.0-32.0 [facility] Comment on above: Performed By: #### F ERR, FETIBC, VITB12 #### [facility] [address] [place] [address] Dr. Anu Magdaleno Creatinine [Mass/Vol] 1.40 mg/dL Critically high 0.70-1.30 [facility] Comment on above: Performed By: #### F ERR, FETIBC, VITB12 #### [facility] [address] [place] [address] Dr. Anu Magdaleno EGFR-AF SAMMARINESE 58 mL/min/1.73m2 Critically low >=60 [facility] Comment on above: Performed By: #### F ERR, FETIBC, VITB12 #### [facility] [address] [address] [address] Anu Magdaleno EGFR-NON AF SAMMARINESE 48 mL/min/1.73m2 Critically low >=60 [facility] Comment on above: Performed By: #### F ERR, FETIBC, VITB12 #### [facility] [address] [address] [address] Anu Magdaleno Glucose [Mass/Vol] 124 mg/dL Critically high 74-106 T [facility] Comment on above: Performed By: #### F ERR, FETIBC, VITB12 #### [facility] [address] [place] [address] Dr. Anu Magdaleno Potassium [Moles/Vol] 4.4 mmol/L Normal 3.5-5.1 [facility] Comment on above: Performed By: #### F ERR, FETIBC, VITB12 #### [facility] [address] [address] [address] Anu Magdaleno Sodium [Moles/Vol] 139 mmol/L Normal 136-145 [facility] Comment on above: Performed By: #### F ERR, FETIBC, VITB12 #### [facility] [address] [address] [address] Anu Magdaleno Urea nitrogen [Mass/Vol] 20.0 mg/dL Critically high 7.0-18.0 [facility] Comment on above: Performed By: #### F ERR, FETIBC, VITB12 #### [facility] [address] [address] [address] Anu Magdaleno Urea nitrogen/Creatinin e [Mass ratio] 14.3 mg/mg Normal [facility] Comment on above: Performed By: #### F ERR, FETIBC, VITB12 #### [facility] [address] [place] [address] Dr. Anu Magdaleno SGRuby 07-16-2022 AST [Catalytic activity/Vol] 16 U/L Normal 15-37 [facility] Comment on above: Performed By: #### L IPID, AST, BMP #### [facility] [address] [address] [address] HEAD WO CONon [...] ASIA ESPINAL Date: 2022-03-26 09:12 Normal [facility] Office Visit (Cardiology)on 01-15-2022 Follow-up visit [...] Recorded: 15Jan2022 03:30PM Heart Rate68, L Radial Puwrsyxl441, RUE, Sitting Yzdfkovvf73, RUE, Sitting Height5 ft 10 in Fmvrqx653 lb BMI Zhvsbspwbk02.26 kg/m2 BSA Calculated2.04 Tobacco Useb) No PHQ-2 [...] Screening.on 022 Adult depression screening assessment No [facility] [address] DO Work Phone: Fall risk assessment b) One or more falls in the last year [facility] [address] DO Work Phone: Tobacco use status CPHS b) No [facility] [address] DO Work Phone: XR KUB 1 [...] VANI RIDLEY Date: 2022-01-10 17:59 Normal [facility] XR KUB_DECUB or ERECTon 10-0 XR [...] ASIA ESPINAL Date: 2021-12-21 11:40 Normal [facility] CBC AUTO DIFFon 10-30-2021 BASO # 0.0 103/ul Normal 0.0-0.1 [facility] Comment on above: Performed By: #### C BC #### [facility] [address] [address] [address] Anu Magdaleno Basophils/100 WBC (Bld) 0.7 % Normal 0.2-2.0 [facility] Comment on above: Performed By: #### C BC #### [facility] [address] [place] [address] Dr. Anu Magdaleno EO # 0.5 103/ul Normal 0.0-0.7 [facility] Comment on above: Performed By: #### C BC #### [facility] [address] [place] [address] Dr. Anu Magdaleno Eosinophils/100 WBC (Bld) 7.7 % Critically high 0.9-7.0 [facility] Comment on above: Performed By: #### C BC #### [facility] [address] [place] [address] Dr. Anu Magdaleno Erythrocyte distribution width (RBC) [Ratio] 13.7 % Normal 11.0-15.0 [facility] Comment on above: Performed By: #### C BC #### [facility] [address] [place] [address] Dr. Anu Magdaleno Hematocrit (Bld) [Volume fraction] 39.5 % Critically low 42.0-54.0 [facility] Comment on above: Performed By: #### C BC #### [facility] [address] [place] [address] Dr. Anu Magdaleno Hemoglobin (Bld) [Mass/Vol] 13.3 g/dL Critically low 14.0-18.0 [facility] Comment on above: Performed By: #### C BC #### [facility] [address] [place] [address] Dr. Anu Magdaleno IG # 0.02 10e3/ul Normal 0.00-0.03 [facility] Comment on above: Performed By: #### C BC #### [facility] [address] [place] [address] Dr. Anu Magdaleno IG % 0.3 % Normal 0.0-0.5 [facility] Comment on above: Performed By: #### C BC #### [facility] [address] [place] [address] Dr. Anu Magdaleno LYMPH # 1.1 103/ul Critically low 1.2-3.8 [facility] Comment on above: Performed By: #### C BC #### [facility] [address] [place] [address] Dr. Anu Magdaleno Lymphocytes/100 WBC (Bld) 18.4 % Critically low 20.5-60.0 [facility] Comment on above: Performed By: #### C BC #### [facility] [address] [place] [address] Dr. Anu Magdaleno MANUAL DIFF REQ NO Normal [facility] Comment on above: Performed By: #### C BC #### [facility] [address] [place] [address] Dr. Anu Magdaleno MCH (RBC) [Entitic mass] 30.0 pg Normal 25.9-34.0 [facility] Comment on above: Performed By: #### C BC #### [facility] [address] [place] [address] Dr. Anu Magdaleno MCHC (RBC) [Mass/Vol] 33.7 g/dL Normal 29.9-35.2 [facility] Comment on above: Performed By: #### C BC #### [facility] [address] [place] [address] Dr. Anu Magdaleno MCV (RBC) [Entitic vol] 89.2 fL Normal 80.0-94.0 [facility] Comment on above: Performed By: #### C BC #### [facility] [address] [place] [address] Dr. Anu Magdaleno MONO # 0.4 103/ul Normal 0.3-0.8 [facility] Comment on above: Performed By: #### C BC #### [facility] [address] [place] [address] Dr. Anu Magdaleno Monocytes/100 WBC (Bld) 7.4 % Normal 1.7-12.0 [facility] Comment on above: Performed By: #### C BC #### [facility] [address] [place] [address] Dr. Anu Magdaleno NEUT # 3.9 103/ul Normal 1.4-6.5 [facility] Comment on above: Performed By: #### C BC #### [facility] [address] [address] [address] Anu Magdaleno Neutrophils/100 WBC (Bld) 65.5 % Normal 43.0-75.0 [facility] Comment on above: Performed By: #### C BC #### [facility] [address] [address] [address] Anu Magdaleno Platelet mean volume (Bld) [Entitic vol] 9.5 fL Normal 9.5-13.5 [facility] Comment on above: Performed By: #### C BC #### [facility] [address] [place] [address] Dr. Anu Magdaleno PLT 121 103/ul Critically low 150-450 [facility] Comment on above: Performed By: #### C BC #### [facility] [address] [place] [address] Dr. Anu Magdaleno RBC 4.43 106/ul Critically low 4.70-6.10 [facility] Comment on above: Performed By: #### C BC #### [facility] [address] [place] [address] Dr. Anu Magdaleno WBC 6.0 103/ul Normal 4.0-11.0 [facility] Comment on above: Performed By: #### C BC #### [facility] [address] [place] [address] Dr. Anu Magdaleno FERRITINon 10-30-2021 Ferritin [Mass/Vol] 137.0 ng/mL Normal 26.0-388.0 [facility] Comment on above: Performed By: #### F ERR, FETIBC, VITB12 #### [facility] [address] [place] [address] Dr. Anu Magdaleno IRON AND TIBCon 10-30-2021 % SATURATION 21.8 % Normal [facility] Comment on above: Performed By: #### F ERR, FETIBC, VITB12 #### [facility] [address] [place] [address] Dr. Anu Magdaleno Iron [Mass/Vol] 67.0 ug/dL Normal 65.0-175.0 [facility] Comment on above: Performed By: #### F ERR, FETIBC, VITB12 #### [facility] [address] [place] [address] Dr. Anu Magdaleno TIBC DIRECT 307.0 ug/dL Normal 250.0-450. 0 [facility] Comment on above: Performed By: #### F ERR, FETIBC, VITB12 #### [facility] [address] [address] [address] Anu Magdaleno VITAMIN B12on 10-30-2021 Cobalamin (Vitamin B12) [Mass/Vol] 385.0 pg/mL Normal 193.0-986. 0 [facility] Comment on above: Performed By: #### F ERR, FETIBC, VITB12 #### [facility] [address] [place] [address] head/brain wo conon 08-26 CT head/brain wo con [facility] [place] [address] [place] [address] CT Scan Report Signed Patient: Tammi Patel MR#: [id number] : 1935 Acct:[id number] Age/Sex: 85 / M ADM Date: 08/26/21 Loc: CT Room: Type: [facility] Attending Dr: Angel Cotton MD Ordering [...] Jericho Esparza M.D.08/26/2021 10:23 AM Dictation Location: [place] [address] Transcribed By: [facility] 08/26/21 1023 Dictated By: Jericho Esparza II, MD 08/26/21 1019 Signed By: 08/26/21 1023 [facility] CBC AUTO DIFFon 08-01-2021 BASO # 0.1 103/ul Normal 0.0-0.1 [facility] Comment on above: Performed By: #### C BC #### [facility] [address] [place] [address] Dr. Anu Magdaleno Basophils/100 WBC (Bld) 0.7 % Normal 0.2-2.0 [facility] Comment on above: Performed By: #### C BC #### [facility] [address] [address] [address] Anu Magdaleno EO # 0.3 103/ul Normal 0.0-0.7 [facility] Comment on above: Performed By: #### C BC #### [facility] [address] [address] [address] Anu Magdaleno Eosinophils/100 WBC (Bld) 3.4 % Normal 0.9-7.0 [facility] Comment on above: Performed By: #### C BC #### [facility] [address] [place] [address] Dr. Anu Magdaleno Erythrocyte distribution width (RBC) [Ratio] 13.5 % Normal 11.0-15.0 [facility] Comment on above: Performed By: #### C BC #### [facility] [address] [place] [address] Dr. Anu Magdaleno Hematocrit (Bld) [Volume fraction] 40.7 % Critically low 42.0-54.0 [facility] Comment on above: Performed By: #### C BC #### [facility] [address] [place] [address] Dr. Anu Magdaleno Hemoglobin (Bld) [Mass/Vol] 13.1 g/dL Critically low 14.0-18.0 [facility] Comment on above: Performed By: #### C BC #### [facility] [facility] [address] [place] [address] Dr. Anu Magdaleno IG # 0.05 10e3/ul Critically high 0.00-0.03 [facility] Comment on above: Performed By: #### C BC #### [facility] [address] [place] [address] Dr. Anu Magdaleno IG % 0.6 % Critically high 0.0-0.5 [facility] Comment on above: Performed By: #### C BC #### [facility] [address] [place] [address] Dr. Anu Magdaleno LYMPH # 0.8 103/ul Critically low 1.2-3.8 [facility] Comment on above: Performed By: #### C BC #### [facility] [address] [place] [address] Dr. Anu Magdaleno Lymphocytes/100 WBC (Bld) 9.6 % Critically low 20.5-60.0 [facility] Comment on above: Performed By: #### C BC #### [facility] [address] [place] [address] Dr. Anu Magdaleno MANUAL DIFF REQ NO Normal [facility] Comment on above: Performed By: #### C BC #### [facility] [address] [address] [address] Anu Magdaleno MCH (RBC) [Entitic mass] 29.0 pg Normal 25.9-34.0 [facility] Comment on above: Performed By: #### C BC #### [facility] [address] [place] [address] Dr. Anu Magdaleno MCHC (RBC) [Mass/Vol] 32.2 g/dL Normal 29.9-35.2 [facility] Comment on above: Performed By: #### C BC #### [facility] [address] [place] [address] Dr. Anu Magdaleno MCV (RBC) [Entitic vol] 90.0 fL Normal 80.0-94.0 [facility] Comment on above: Performed By: #### C BC #### [facility] [address] [place] [address] Dr. Anu Magdaleno MONO # 0.5 103/ul Normal 0.3-0.8 [facility] Comment on above: Performed By: #### C BC #### [facility] [address] [place] [address] Dr. Anu Magdaleno Monocytes/100 WBC (Bld) 6.4 % Normal 1.7-12.0 [facility] Comment on above: Performed By: #### C BC #### [facility] [address] [place] [address] Dr. Anu Magdaleno NEUT # 6.4 103/ul Normal 1.4-6.5 [facility] Comment on above: Performed By: #### C BC #### [facility] [address] [place] [address] Dr. Anu Magdaleno Neutrophils/100 WBC (Bld) 79.3 % Critically high 43.0-75.0 [facility] Comment on above: Performed By: #### C BC #### [facility] [address] [place] [address] Dr. Anu Magdaleno Platelet mean volume (Bld) [Entitic vol] 10.0 fL Normal 9.5-13.5 [facility] Comment on above: Performed By: #### C BC #### [facility] [address] [address] [address] Anu Magdaleno PLT 154 103/ul Normal 150-450 [facility] Comment on above: Performed By: #### C BC #### [facility] [address] [address] [address] Anu Magdaleno RBC 4.52 106/ul Critically low 4.70-6.10 [facility] Comment on above: Performed By: #### C BC #### [facility] [address] [address] [address] Anu Magdaleno WBC 8.0 103/ul Normal 4.0-11.0 [facility] Comment on above: Performed By: #### C BC #### [facility] [address] [place] [address] Dr. Anu Magdaleno LIPID PROFILEon 08-01-2021 CHOL-HDL RATIO NORM SEE BELOW Normal [facility] Comment on above: Result Comment: 3.3 - 4.4 LOW RISK 4.4 - 7.1 AVERAGE RISK 7.1 - 11.0 MODERATE RISK >11.0 HIGH RISK Performed By: #### F ERR, FETIBC, VITB12 #### [facility] [address] [place] [address] Dr. Anu Magdaleno Cholesterol [Mass/Vol] 102 mg/dL Normal <=200 [facility] Comment on above: Performed By: #### F ERR, FETIBC, VITB12 #### [facility] [address] [place] [address] Dr. Anu Magdaleno Cholesterol in HDL [Mass/Vol] 50 mg/dL Normal 40-60 [facility] Comment on above: Performed By: #### F ERR, FETIBC, VITB12 #### [facility] [address] [place] [address] Dr. Anu Magdaleno Cholesterol in LDL [Mass/Vol] 34.6 mg/dL Normal [facility] Comment on above: Performed By: #### F ERR, FETIBC, VITB12 #### [facility] [address] [address] [address] Anu Magdaleno Cholesterol.total/ Cholesterol in HDL [Mass ratio] 2.0 {ratio} Normal [facility] Comment on above: Performed By: #### F ERR, FETIBC, VITB12 #### [facility] [address] [place] [address] Dr. Anu Magdaleno HDL NORMAL > or = 60 mg/dl - LO W CARDIOVASCULAR RISK <40 mg/dl - HIGH CARDIOVASCULAR RISK Normal [facility] Comment on above: Performed By: #### F ERR, FETIBC, VITB12 #### [facility] [address] [address] [address] Anu Magdaleno LDL CALC NORMAL SEE BELOW Normal [facility] Comment on above: Result Comment: <100 mg/dl OPTIMAL 100 - 129 mg/dl NEAR OR ABOVE OPTIMAL 130 - 159 mg/dl BORDERLINE HIGH 160 - 189 mg/dl HIGH >190 mg/dl VERY HIGH Performed By: #### F ERR, FETIBC, VITB12 #### [facility] [address] [address] [address] Anu Magdaleno Triglyceride [Mass/Vol] 87 mg/dL Normal <=150 [facility] Comment on above: Performed By: #### F ERR, FETIBC, VITB12 #### [facility] [address] [place] [address] Dr. Anu Magdaleno VLDL CALC 17.4 mg/dL Normal [facility] Comment on above: Performed By: #### F ERR, FETIBC, VITB12 #### [facility] [address] [address] [address] Anu Magdaleno PROF CHEM 8 (BAS METB)on Anion gap [Moles/Vol] 13.8 mmol/L Normal [facility] Comment on above: Performed By: #### F ERR, FETIBC, VITB12 #### [facility] [address] [place] [address] Dr. Anu Magdaleno Calcium [Mass/Vol] 9.0 mg/dL Normal 8.5-10.1 [facility] Comment on above: Performed By: #### F ERR, FETIBC, VITB12 #### [facility] [address] [place] [address] Dr. Anu Magdaleno Chloride [Moles/Vol] 100 mmol/L Normal 98-107 [facility] Comment on above: Performed By: #### F ERR, FETIBC, VITB12 #### [facility] [address] [place] [address] Dr. Anu Magdaleno CO2 [Moles/Vol] 28.4 mmol/L Normal 21.0-32.0 [facility] Comment on above: Performed By: #### F ERR, FETIBC, VITB12 #### [facility] [address] [place] [address] Dr. Anu Magdaleno Creatinine [Mass/Vol] 1.31 mg/dL Critically high 0.70-1.30 [facility] Comment on above: Performed By: #### F ERR, FETIBC, VITB12 #### [facility] [address] [place] [address] Dr. Anu Magdaleno EGFR-AF SAMMARINESE >60 Normal >=60 [facility] Comment on above: Performed By: #### F ERR, FETIBC, VITB12 #### [facility] [address] [place] [address] Dr. Anu Magdaleno EGFR-NON AF SAMMARINESE 52 mL/min/1.73m2 Critically low >=60 [facility] Comment on above: Performed By: #### F ERR, FETIBC, VITB12 #### [facility] [address] [place] [address] Dr. Anu Magdaleno Glucose [Mass/Vol] 118 mg/dL Critically high 74-106 T [facility] Comment on above: Performed By: #### F ERR, FETIBC, VITB12 #### [facility] [address] [place] [address] Dr. Anu Magdaleno Potassium [Moles/Vol] 4.2 mmol/L Normal 3.5-5.1 [facility] Comment on above: Performed By: #### F ERR, FETIBC, VITB12 #### [facility] [address] [place], [place] [id number] Dr. Anu Magdaleno Sodium [Moles/Vol] 138 mmol/L Normal 136-145 [facility] Comment on above: Performed By: #### F ERR, FETIBC, VITB12 #### [facility] [address] [place] [address] Dr. Anu Magdaleno Urea nitrogen [Mass/Vol] 21.0 mg/dL Critically high 7.0-18.0 [facility] Comment on above: Performed By: #### F ERR, FETIBC, VITB12 #### [facility] [address] [address] [address] Anu Magdaleno Urea nitrogen/Creatinin e [Mass ratio] 16.0 mg/mg Normal [facility] Comment on above: Performed By: #### F ERR, FETIBC, VITB12 #### [facility] [address] [place] [address] Dr. Anu Magdaleno SGOTon 08-01-2021 AST [Catalytic activity/Vol] 13 U/L Critically low 15-37 [facility] Comment on above: Performed By: #### F ERR, FETIBC, VITB12 #### [facility] [address] [address] [address] Anu Magdaleno Basic Metabolic Panelon 05 Calcium [Mass/Vol] 9.0 mg/dL Normal 8.2-10.2 [facility] Comment on above: Performed By: #### C BC, PT, PTT, BMP #### [facility] [address] [place] [address] [place] Chloride [Moles/Vol] 104 mmol/L Normal 95-114 Comment on above: Performed By: #### C BC, PT, PTT, BMP #### [facility] [address] [id number] [place] CO2 [Moles/Vol] 23.8 mmol/L Normal 22.0-30.0 [facility] Comment on above: Performed By: #### C BC, PT, PTT, BMP #### [facility] [address] [id number] [place] Creatinine [Mass/Vol] 1.26 mg/dL Normal 0.64-1.27 Comment on above: Performed By: #### C BC, PT, PTT, BMP #### [facility] [address] [place] [address] Creatinine Clr Calc Pharmacy 44.26 [facility] Comment on above: Result Comment: PERF ORMED BY: [place] [id number] PATHOLOGIST CORE MAN FAVIO CANAS M.D. Performed By: #### C BC, PT, PTT, BMP #### [address] Estimated GFR ( Marzena > 60 [facility] Comment on above: Result Comment: GFR estimated reference range: According to KDOQI guidelines, <60 ml/min/1.73m2 is sufficient to diagnose a patient with chronic kidney disease. Performed By: #### C BC, PT, PTT, BMP #### [facility] [address] [place] [address] Estimated GFR (Non- Am 54 [facility] Comment on above: Performed By: #### C BC, PT, PTT, BMP #### [address] Glucose [Mass/Vol] 105 mg/dL High 70-100 [facility] Comment on above: Result Comment: [place] Glucose Reference Range is dependent on time and content of last meal. Glucose of more than 200 mg/dL in a nonstressed, ambulatory subject supports the diagnosis of Diabetes Mellitus. ADA recommended reference range Performed By: #### C BC, PT, PTT, BMP #### [facility] [address] [place] [address] Potassium [Moles/Vol] 4.2 mmol/L Normal 3.5-5.1 Comment on above: Performed By: #### C BC, PT, PTT, BMP #### [facility] [address] Sodium [Moles/Vol] 137 mmol/L Normal 136-146 [facility] Comment on above: Performed By: #### C BC, PT, PTT, BMP #### [facility] [address] Urea nitrogen [Mass/Vol] 22 mg/dL Normal 9-23 Comment on above: Performed By: #### C BC, PT, PTT, BMP #### [facility] [address] Coagulation Profileon 2021 aPTT Coag (Bld) [Time] 29.6 s Normal 25.1-36.5 Comment on above: Result Comment: PERF ORMED BY: [place] [id number] PATHOLOGIST CORE MAN FAVIO CANAS M.D. Performed By: #### C BC, PT, PTT, BMP #### [address] INR Coag (PPP) [Relative time] 1.1 {INR} Normal Comment on above: Result Comment: INR Therapeutic [...] #### C BC, PT, PTT, BMP #### [facility] [address] [place] [address] PT Coag (PPP) [Time] 12.2 s Normal 9.0-12.9 Comment on above: Performed By: #### C BC, PT, PTT, BMP #### [address] Complete Blood Count Auto Di ffon 07-19-2021 Basophils (Bld) [#/Vol] 0.1 10*3/uL Normal 0.0-0.2 Comment on above: Result Comment: PERF ORMED BY: [address] [place] [address] PATHOLOGIST CORE MAN FAVIO CANAS M.D. Performed By: #### C BC, PT, PTT, BMP #### [address] Basophils/100 WBC (Bld) 0.9 % Normal . Comment on above: Performed By: #### C BC, PT, PTT, BMP #### [address] Eosinophils (Bld) [#/Vol] 0.4 10*3/uL Normal 0.0-0.45 Comment on above: Performed By: #### C BC, PT, PTT, BMP #### [address] Eosinophils/100 WBC (Bld) 7.6 % Normal . Comment on above: Performed By: #### C BC, PT, PTT, BMP #### [address] Erythrocyte distribution width (RBC) [Ratio] 14.5 % Normal 12.0-14.8 Comment on above: Performed By: #### C BC, PT, PTT, BMP #### [address] Hematocrit (Bld) [Volume fraction] 37.6 % Low 38.8-50.0 Comment on above: Performed By: #### C BC, PT, PTT, BMP #### [address] Hemoglobin (Bld) [Mass/Vol] 13.3 g/dL Normal 13.0-17.0 Comment on above: Performed By: #### C BC, PT, PTT, BMP #### [address] Lymphocytes (Bld) [#/Vol] 1.0 10*3/uL Normal 1.00-4.8 Comment on above: Performed By: #### C BC, PT, PTT, BMP #### [facility] [address] [place] [address] [place] Lymphocytes/100 WBC (Bld) 17.4 % Normal . Comment on above: Performed By: #### C BC, PT, PTT, BMP #### [facility] [address] MCH (RBC) [Entitic mass] 30.1 pg Normal 27.5-35.2 Comment on above: Performed By: #### C BC, PT, PTT, BMP #### [facility] [address] MCV (RBC) [Entitic vol] 84.9 fL Normal 83.5-101 Comment on above: Performed By: #### C BC, PT, PTT, BMP #### [facility] [address] Mean Corpuscular HGB Conc 35.4 g/dL Normal 32.5-35.6 Comment on above: Performed By: #### C BC, PT, PTT, BMP #### [facility] [address] [place] [address] [place] Monocytes (Bld) [#/Vol] 0.5 10*3/uL Normal 0.0-0.8 Comment on above: Performed By: #### C BC, PT, PTT, BMP #### [facility] [address] [place] [address] [place] Monocytes/100 WBC (Bld) 9.6 % Normal . Comment on above: Performed By: #### C BC, PT, PTT, BMP #### [facility] [address] [place] [address] [place] Neutrophils (Bld) [#/Vol] 3.5 10*3/uL Normal 1.8-7.7 Comment on above: Performed By: #### C BC, PT, PTT, BMP #### [facility] [address] [place] [address] [place] Neutrophils/100 WBC (Bld) 64.5 % Normal . Comment on above: Performed By: #### C BC, PT, PTT, BMP #### [facility] [address] Nucleated RBC/100 WBC (Bld) [Ratio] 0.0 % Normal 0-0.5 Comment on above: Performed By: #### C BC, PT, PTT, BMP #### [facility] [address] Platelet mean volume (Bld) [Entitic vol] 8.2 fL Normal 6.6-10.1 Comment on above: Performed By: #### C BC, PT, PTT, BMP #### [address] Platelets (Bld) [#/Vol] 119 10*3/uL Low 150-450 Comment on above: Performed By: #### C BC, PT, PTT, BMP #### [address] RBC (Bld) [#/Vol] 4.43 10*6/uL Normal 3.90-5.60 [facility] Comment on above: Performed By: #### C BC, PT, PTT, BMP #### [address] WBC (Bld) [#/Vol] 5.5 10*3/uL Normal 4.5-11.0 [facility] Comment on above: Performed By: #### C BC, PT, PTT, BMP #### [address] ABO/Rh Retypeon 07-18-2021 ABO/RH Recheck Result Positive Normal Comment on above: Result Comment: PERF ORMED BY: [place] [id number] PATHOLOGIST CORE MAN FAVIO CANAS M.D. Type and Screenon 07-18-2021 ABO and Rh group Nom (Bld) Blood group O Rh(D) positive Normal [facility] Comment on above: Order Comment: Comme nt FOR SURGERY 07/19 Basic Metabolic Panelon 05-0 Calcium [Mass/Vol] 8.8 mg/dL Normal 8.2-10.2 [facility] Comment on above: Performed By: #### C BC, PT, PTT, BMP #### [address] Chloride [Moles/Vol] 102 mmol/L Normal 95-114 Comment on above: Performed By: #### C BC, PT, PTT, BMP #### [address] CO2 [Moles/Vol] 23.7 mmol/L Normal 22.0-30.0 [facility] Comment on above: Performed By: #### C BC, PT, PTT, BMP #### [address] Creatinine [Mass/Vol] 1.33 mg/dL High 0.64-1.27 Comment on above: Performed By: #### C BC, PT, PTT, BMP #### [address] Creatinine Clr Calc Pharmacy 45.37 [facility] Comment on above: Result Comment: PERF ORMED BY: [place] [id number] PATHOLOGIST CORE MAN FAVIO CANAS M.D. Performed By: #### C BC, PT, PTT, BMP #### [address] Estimated GFR ( Marzena > 60 [facility] Comment on above: Result Comment: GFR estimated reference range: According to KDOQI guidelines, <60 ml/min/1.73m2 is sufficient to diagnose a patient with chronic kidney disease. Performed By: #### C BC, PT, PTT, BMP #### [address] Estimated GFR (Non- Am 51 [facility] Comment on above: Performed By: #### C BC, PT, PTT, BMP #### [facility] [address] Glucose [Mass/Vol] 98 mg/dL Normal 70-100 [facility] Comment on above: Result Comment: [facility] Glucose Reference Range is dependent on time and content of last meal. Glucose of more than 200 mg/dL in a nonstressed, ambulatory subject supports the diagnosis of Diabetes Mellitus. ADA recommended reference range Performed By: #### C BC, PT, PTT, BMP #### [facility] [address] Potassium [Moles/Vol] 4.2 mmol/L Normal 3.5-5.1 Comment on above: Performed By: #### C BC, PT, PTT, BMP #### [facility] [address] Sodium [Moles/Vol] 136 mmol/L Normal 136-146 [facility] Comment on above: Performed By: #### C BC, PT, PTT, BMP #### [address] Urea nitrogen [Mass/Vol] 25 mg/dL High 9-23 Comment on above: Performed By: #### C BC, PT, PTT, BMP #### [address] head/brain wo conon 07-16 CT head/brain wo con [facility] Main [place] [address] [place] [address] CT Scan Report Signed Patient: Tammi Patel MR#: [id number] : 1935 Acct:[id number] Age/Sex: 85 / M ADM Date: 07/15/21 Loc: 3T Room: [address] [place] [address] Type: ADM INOo Attending Dr: Jose Barber [...] Aleks Paredes M.D.07/16/2021 9:22 AM Dictation Location: [place] [address] Transcribed By: [facility] 07/16/21921 Dictated By: Aleks Paredes DO 07/16/21916 Signed By: 07/16/21921 Normal Basic Metabolic Panelon 05 Calcium [Mass/Vol] 9.1 mg/dL Normal 8.2-10.2 [facility] Comment on above: Performed By: #### C BC, PT, PTT, BMP #### [facility] [address] [place] [address] [place] Chloride [Moles/Vol] 103 mmol/L Normal 95-114 Comment on above: Performed By: #### C BC, PT, PTT, BMP #### [facility] [address] [place] [address] [place] CO2 [Moles/Vol] 25.7 mmol/L Normal 22.0-30.0 [facility] Comment on above: Performed By: #### C BC, PT, PTT, BMP #### [facility] [address] [place] [id number] [place] Creatinine [Mass/Vol] 1.40 mg/dL High 0.64-1.27 Comment on above: Performed By: #### C BC, PT, PTT, BMP #### [facility] [address] [place] [address] Creatinine Clr Calc Pharmacy 43.04 [facility] Comment on above: Result Comment: PERF ORMED BY: [place] [id number] PATHOLOGIST CORE MAN FAVIO CANAS M.D. Performed By: #### C BC, PT, PTT, BMP #### [facility] [address] Estimated GFR ( Marzena 58 [facility] Comment on above: Result Comment: GFR estimated reference range: According to KDOQI guidelines, <60 ml/min/1.73m2 is sufficient to diagnose a patient with chronic kidney disease. Performed By: #### C BC, PT, PTT, BMP #### [facility] [address] [place] [address] Estimated GFR (Non- Am 48 [facility] Comment on above: Performed By: #### C BC, PT, PTT, BMP #### [address] Glucose [Mass/Vol] 119 mg/dL High 70-100 [facility] Comment on above: Result Comment: [place] Glucose Reference Range is dependent on time and content of last meal. Glucose of more than 200 mg/dL in a nonstressed, ambulatory subject supports the diagnosis of Diabetes Mellitus. ADA recommended reference range Performed By: #### C BC, PT, PTT, BMP #### [facility] [address] [place] [address] Potassium [Moles/Vol] 4.1 mmol/L Normal 3.5-5.1 Comment on above: Performed By: #### C BC, PT, PTT, BMP #### [facility] [address] Sodium [Moles/Vol] 139 mmol/L Normal 136-146 [facility] Comment on above: Performed By: #### C BC, PT, PTT, BMP #### [facility] [address] Urea nitrogen [Mass/Vol] 24 mg/dL High 12-06 Comment on above: Performed By: #### C BC, PT, PTT, BMP #### [facility] [address] COVID-19 Antigenon 2 COVID-19 [facility] [...] developed and its performance characteristic determined by [employer] and validated at . This test has not been FDA cleared [...] for SARS Antigen by TREY PERFORMED BY: [place] [address] [place] [id number] PATHOLOGIST CORE MAN FAVIO CANAS M.D. Normal Comment on above: Performed By: #### C BC, PT, PTT, BMP #### [facility] [address] [place] [id number] [facility] COVID-19 [facility] 07-15-2021 SARS-CoV-2 (COVID-19) RNA RUIZ+probe Ql (Unsp spec) Negative Normal Negative Comment on above: Order Comment: Healt hcare Worker?: N Result Comment: Testing for SARS-CoV-2 by RT-PCR This test was developed and its performance characteristics determined by [employer]) and validated at the . This test has not been FDA cleared [...] is terminated or revoked sooner. PERFORMED BY: [address] [id number] PATHOLOGIST CORE MAN FAVIO CANAS M.D. Performed By: #### C BC, PT, PTT, BMP #### [facility] [address] [place] [id number] [facility] [address] head/brain wo [facility] 07-15 CT head/brain wo [facility] Main [address] [address] [address] Scan Report Signed Patient: Tammi Patel MR#: [id number] : 1935 Acct:[id number] Age/Sex: 85 / M ADM Date: 07/15/21 Loc: CT Room: Type: [facility] Attending Dr: Dixie Carroll PA-C Ordering [...] Jericho Esparza M.D.07/15/2021 1:43 PM Dictation Location: [place] [address] Transcribed By: RUBEN 07/15/21 1343 Dictated By: Jericho Esparza II, MD 07/15/21 1339 Signed By: 07/15/21 1343 Normal Complete Blood Count Auto Di ffon 07-15-2021 Basophils (Bld) [#/Vol] 0.1 10*3/uL Normal 0.0-0.2 Comment on above: Result Comment: PERF ORMED BY: [place] [id number] PATHOLOGIST CORE MAN FAVIO CANAS M.D. Performed By: #### C BC, PT, PTT, BMP #### [address] Basophils/100 WBC (Bld) 1.9 % Normal . Comment on above: Performed By: #### C BC, PT, PTT, BMP #### [address] Eosinophils (Bld) [#/Vol] 0.3 10*3/uL Normal 0.0-0.45 Comment on above: Performed By: #### C BC, PT, PTT, BMP #### [address] Eosinophils/100 WBC (Bld) 5.4 % Normal . Comment on above: Performed By: #### C BC, PT, PTT, BMP #### [facility] [address] [place] [address] Erythrocyte distribution width (RBC) [Ratio] 14.3 % Normal 12.0-14.8 Comment on above: Performed By: #### C BC, PT, PTT, BMP #### [facility] [address] [place] [address] Hematocrit (Bld) [Volume fraction] 37.0 % Low 38.8-50.0 Comment on above: Performed By: #### C BC, PT, PTT, BMP #### [facility] [address] [place] [address] Hemoglobin (Bld) [Mass/Vol] 12.9 g/dL Low 13.0-17.0 Comment on above: Performed By: #### C BC, PT, PTT, BMP #### [address] Lymphocytes (Bld) [#/Vol] 0.8 10*3/uL Low 1.00-4.8 Comment on above: Performed By: #### C BC, PT, PTT, BMP #### [address] Lymphocytes/100 WBC (Bld) 15.0 % Normal . Comment on above: Performed By: #### C BC, PT, PTT, BMP #### [address] MCH (RBC) [Entitic mass] 30.0 pg Normal 27.5-35.2 Comment on above: Performed By: #### C BC, PT, PTT, BMP #### [address] MCV (RBC) [Entitic vol] 85.7 fL Normal 83.5-101 Comment on above: Performed By: #### C BC, PT, PTT, BMP #### [address] Mean Corpuscular HGB Conc 34.9 g/dL Normal 32.5-35.6 Comment on above: Performed By: #### C BC, PT, PTT, BMP #### [address] Monocytes (Bld) [#/Vol] 0.4 10*3/uL Normal 0.0-0.8 Comment on above: Performed By: #### C BC, PT, PTT, BMP #### [address] Monocytes/100 WBC (Bld) 7.3 % Normal . Comment on above: Performed By: #### C BC, PT, PTT, BMP #### [address] Neutrophils (Bld) [#/Vol] 3.9 10*3/uL Normal 1.8-7.7 Comment on above: Performed By: #### C BC, PT, PTT, BMP #### [address] Neutrophils/100 WBC (Bld) 70.4 % Normal . Comment on above: Performed By: #### C BC, PT, PTT, BMP #### [address] Nucleated RBC/100 WBC (Bld) [Ratio] 0.0 % Normal 0-0.5 Comment on above: Performed By: #### C BC, PT, PTT, BMP #### [address] Platelet mean volume (Bld) [Entitic vol] 8.1 fL Normal 6.6-10.1 Comment on above: Performed By: #### C BC, PT, PTT, BMP #### [address] Platelets (Bld) [#/Vol] 135 10*3/uL Low 150-450 Comment on above: Performed By: #### C BC, PT, PTT, BMP #### [address] RBC (Bld) [#/Vol] 4.32 10*6/uL Normal 3.90-5.60 [facility] Comment on above: Performed By: #### C BC, PT, PTT, BMP #### [address] WBC (Bld) [#/Vol] 5.6 10*3/uL Normal 4.5-11.0 [facility] Comment on above: Performed By: #### C BC, PT, PTT, BMP #### [address] ECG 12 lead ECGon 07-15-2021 ECG 12 lead ECG [facility] [place] [address] Electrocardiograph Report Signed Patient: Tammi Patel MR#: [id number] : 1935 Acct:[id number] Age/Sex: 85 / M ADM Date: 07/15/21 Loc: 4N Room: 4M4703-9 Type: DIS IN Attending Dr: Jose Barber [...] Signed By Omayra Horowitz MD 07/15/211909 Normal Partial Thromboplastin Timeo n 07-15-2021 aPTT Coag (Bld) [Time] 31.7 s Normal 25.1-36.5 Comment on above: Result Comment: PERF ORMED BY: [place] [id number] PATHOLOGIST CORE MAN FAVIO CANAS M.D. Performed By: #### C BC, PT, PTT, BMP #### [address] Prothrombin Time INRon 07-15 INR Coag (PPP) [Relative time] 1.0 {INR} Normal Comment on above: Result Comment: INR Therapeutic [...] #### C BC, PT, PTT, BMP #### [address] PT Coag (PPP) [Time] 11.4 s Normal 9.0-12.9 Comment on above: Performed By: #### C BC, PT, PTT, BMP #### [address] Leigh Ag Negativeon 07-16-19 Leigh Ag Negative Negative Normal Negative [facility] Comment on above: Result Comment: This is a duplicate Leigh SARS Antigen (TREY) result to be used for statistical tracking purpose only. PERFORMED BY: [place] [id number] PATHOLOGIST CORE MAN FAVIO CANAS M.D. Performed By: #### C BC, PT, PTT, BMP #### [address] XR chest 1V portableon 07-15 XR chest 1V portable [facility] Main [place] [address] [place] [address] XRay Report Signed Patient: Tammi Patel MR#: [id number] : 1935 Acct:[id number] Age/Sex: 85 / M ADM Date: 07/15/21 Loc: ER Room: Type: [facility] ER Attending Dr: Ordering Provider: Omayra [...] Jericho Esparza M.D.07/15/2021 2:43 PM Dictation Location: [place] [address] Transcribed By: RUBEN 07/15/211442 Dictated By: Jericho Esparza II, MD 07/15/211441 Signed By: 07/15/211442 [facility] Office Visit (Cardiology)on 04-09-2021 Follow-up visit Diagnoses/Problems Assessed Essential hypertension (401.9) (I10) Ventricular tachycardia, 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) TIA (transient ischemic attack) (435.9) (G45.9) 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) Palpitations (785.1) (R00.2) Overweight with body mass index (BMI) of 27 to 27.9 in adult (278.02,V85.23) (E66.3,Z68.27) Former smoker (V15.82) (Z87.891) Hyperlipidemia (272.4) (E78.5) Orders Essential hypertension, Palpitations, Ventricular tachycardia, paroxysmal Basic Metabolic Panel; Status:Active; Requested for:[id number]; Hyperlipidemia AST; Status:Active; Requested for:[id number]; Lipid Panel; Status:Active; Requested for:[id number]; Overweight with body mass index (BMI) of [...] 09Apr2021 11:40AM Heart Rate72, L Brachial Artery Vdgknzbc618, LUE, Sitting Aqdneblif57, LUE, Sitting Height5 ft 10 in Uuevzi975 lb BMI Wqjnckvcir72.12 kg/m2 BSA Calculated2.04 Tobacco Useb) No Fall Screeninga) No falls within the last year Physical Exam Constitutional: alert and in no acute distress. Eyes: no erythema, swelling or discharge from the eye . Neck: neck is supple, symme (more content not included)... Normal [employer] Tobacco Screening.on 022 Fall risk assessment a) No falls within the last year [facility] [employer] 250 DO Work Phone: Tobacco use status [facility] b) No [facility] [employer] GroupTowner County Medical CenterInfima Technologiesy 250 DO Work Phone: [facility] CARDIAC STRESS/REST INJE CTIONon 08-31-2018 [facility] CARDIAC STRESS/REST INJECTION Patient Name: YI TAMMI STUDY: Performing facility: [facility], [address] [place] [address], [address], [place] [address] [employer] Repe[employer] Mechanic: Pete DELA CRUZ NP PCP: Dr. Anthony MARTINEZ INDICATION: Abnormal EKG; HISTORY: Gender: M; Age: 82 y/o ; Height: 180.34 cm; Weight: 89.8189642 kg. Abnormal EKG; Palpitations; SOB; Fatigue; Family HX CAD; Quit smoking years ago. COMPARISON: Previous nuclear testing completed at [facility]. ACCESSION NUMBER(S): [id number]; [id number]; [id number] ORDERING CLINICIAN: LINDA HOROWITZ NP TECHNIQUE: ONE [...] 43%. Electronically signed by: NEO MATHEW MD [facility] CNOVSPon 09-02-2017 CNOVSP Visit (SP) Office (HEMACL) TAMMI HERRMANN ([id number]) 1935 MDate Time Provider Department09/02/17 1:00 PM DONOVAN CASTORENA During your visit today, we recorded the following information about you: Temperature Pulse Respiration Blood pressure 97.6 degrees 70/minute 18/minute 121/60 Weight Height 86.7 kg 1.753 Corky Cox RomeosilvestreDO cecil 09/17/2017 9:27 AM SignedPATIENT NAME: Tammi Bustamante: [id number] PHYSICIAN: Ben Jiménez MD417 [facility] [address]YTJVBTI CARE PHYSICIAN: Patric Martinez MDOTHER PHYSICIANS:CHIEF COMPLAINT: [...] 09/02/17-COMP METABOLIC PANEL-CBC + DIFF (FOR REMOTE [facility] USE)-PROTEIN ELECTROPHORESIS W/INTERP-MONOCLONAL PROT BLD W/INTERP-KAPPA/PLAZA,FREE,SER Return if symptoms worsen or fail to improve.he will follow-up as needed only.His platelets are very minimally below normallimit and he has no symptoms. He knows to call me if he has any petechial rashor bleeding issues. Certainly I am more than willing to see him if his [facility] practitioners think this is necessary. HPI: 81 year old male with past medical history significant for chronicnephrolithiasis, benign prostatic hyperplasia, essential hypertension, TIA ( onPlavix), who [facility] apparently was [facility] for another [...] nothing new or out of the ordinary. Osz221 today No more problems with kidney stones.September [...] 1 tablet by mouth once daily.Vit C-Vit S-Cwwpvo-Cfh-OM-3 (OCUVITE) 262-01-2-150 wg-esgi-fp-mg cap Take bymouth once daily.tamsulosin ER (FLOMAX) [...] to palpation. No flank tenderness.Rod Castorena D.O.Medical OncologistDunlap Memorial Hospital Cancer [place], [place]Referring Provider: BEN JIMÉNEZ [[id number]]Allergies As of Date: 09/02/2017(No Known Allergies)Date Reviewed: 09/02/2017Reviewed by: Amy Horowitz - Fully AssessedReason for Visit: Thrombocytopenia [603] Cmt: follow upPrimary Visit Diagnosis:Thrombocytopenia (HCC) [D69.6]Order(s):COMP METABOLIC PANEL [SQCMP] Order #: [id number] FUTURE CBC + DIFF (FOR REMOTE [facility] USE) [SQRCBCDF] Order #: [id number] FUTURE PROTEIN ELECTROPHORESIS W/INTERP [SQSEPG] Order #: [id number] FUTURE MONOCLONAL PROT BLD W/INTERP [SQMPASRM] Order #: [id number] FUTURE KAPPA/PLAZA,FREE,SER [SQKLFRS] Order #: [id number] FUTUREDisposition: Return if symptoms worsen or fail [...] by DONOVAN CASTORENA DO on 09/17/17 Normal [facility] Comp Metabolic Panelon 09-02 Alanine aminotransferase (ALT) 14 U/L Normal 10-54 [facility] Comment on above: Performed By: #### C MP, KLFRS, SEPG, MPASRM ####[facility] AveCMichelle [place] [phone] Albumin 4.2 g/dL Normal 3.9-4.9 [facility] Comment on above: Performed By: #### C MP, KLFRS, SEPG, MPASRM ####[facility] AveCMichelle [place] [phone] Alkaline phosphatase (ALP) 57 U/L Normal 36-108 [facility] Comment on above: Performed By: #### C MP, KLFRS, SEPG, MPASRM ####[place] [address]CM[address]helle [place] [phone] Anion gap 16 mmol/L Normal 9-18 [facility] Comment on above: Performed By: #### C MP, KLFRS, SEPG, MPASRM ####[place] [address]CMichelle [place] [phone] Aspartate aminotransferase (AST) 20 U/L Normal 14-40 [facility] Comment on above: Performed By: #### C MP, KLFRS, SEPG, MPASRM ####[place] [address] [place] [phone] Bilirubin (total) 0.9 mg/dL Normal 0.2-1.3 [facility] Comment on above: Performed By: #### C MP, KLFRS, SEPG, MPASRM ####[facility]CM[address]helle [place] [phone] Calcium 9.5 mg/dL Normal 8.5-10.2 [facility] Comment on above: Performed By: #### C MP, KLFRS, SEPG, MPASRM ####[facility]CM[address]le [place] [phone] Chloride 100 mmol/L Normal 97-105 [facility] Comment on above: Performed By: #### C MP, KLFRS, SEPG, MPASRM ####[facility] Iwsbbxyfrqcp4[address] Bowman AveCSaint Paul, [place] [phone] CO2 22 mmol/L Normal 22-30 [facility] Comment on above: Performed By: #### C MP, KLFRS, SEPG, MPASRM ####[facility] AvSan [place], [place] [phone] Creatinine 1.31 mg/dL High 0.73-1.22 [facility] Comment on above: Performed By: #### C MP, KLFRS, SEPG, MPASRM ####[facility] [place], [place] [phone] eGFR (non-black) 53 . Normal [facility] Comment on above: Result Comment: eGFR (Estimated [...] C MP, KLFRS, SEPG, MPASRM ####[facility] [address] AvSan [place], [place] [phone] eGFR (non-black) mL/min/{1.73_m2} Normal [facility] Comment on above: Performed By: #### C MP, KLFRS, SEPG, MPASRM ####[facility], [place] [phone] Glucose mass conc 159 mg/dL High 74-99 [facility] Comment on above: Result Comment: The [place] Diabetes Association (ADA) provides guidance for cutoff [...] Standards of Medical Care in Diabetes 2016, [place] [employer] Association. Diabetes Care. 2016.39(Suppl 1). Performed By: #### C MP, KLFRS, SEPG, MPASRM ####[place] [phone] Potassium molar conc 5.0 mmol/L Normal 3.7-5.1 [facility] Comment on above: Performed By: #### C MP, KLFRS, SEPG, MPASRM ####[address] [phone] Protein 6.3 g/dL Normal 6.3-8.0 [facility] Comment on above: Performed By: #### C MP, KLFRS, SEPG, MPASRM ####[place] [address] AvBrenda [place] [phone] Sodium 138 mmol/L Normal 136-144 [facility] Comment on above: Performed By: #### C MP, KLFRS, SEPG, MPASRM ####[facility] AvSan [place], [place] [phone] Urea nitrogen 18 mg/dL Normal 9-24 [facility] Comment on above: Performed By: #### C MP, KLFRS, SEPG, MPASRM ####[place] [address] [place], [place] [phone] [place]/Plaza,Free,Seron 2017 K/L Ratio, Serum 2.09 High 0.26-1.65 [facility] Comment on above: Performed By: #### C MP, KLFRS, SEPG, MPASRM ####[facility] [address] Bow[address] AveCleveland, [place] [phone] [place], Free, Serum 24.7 mg/L High 3.30-19.40 [facility] Comment on above: Result Comment: Rare ly, increased serum free light chains values may not be detected due to antigen excess phenomenon. Results should always be correlated with other laboratory results and clinical findings. Performed By: #### C MP, KLFRS, SEPG, MPASRM ####[facility] AveClevelandPage, [place] [phone] Lambda, Free, Serum 11.8 mg/L Normal 5.7-26.3 [facility] Comment on above: Result Comment: Rare ly, increased serum free light chains values may not be detected due to antigen excess phenomenon. Results should always be correlated with other laboratory results and clinical findings. Performed By: #### C MP, KLFRS, SEPG, MPASRM ####[facility] AveCSaint Paul, [place] [phone] Monoclonl Protein,Blon 09-02 MPA Chinmay/Ledezma Ratio 1.75 Normal 1-3 [facility] Comment on above: Performed By: #### C MP, KLFRS, SEPG, MPASRM ####[facility] AveCSaint Paul, [place] [phone] MPA Result No M protein is identified. Normal No M protein is identified . [facility] Comment on above: Performed By: #### C MP, KLFRS, SEPG, MPASRM ####[facility] [address]utkx34[address] Bowman AveClevelandPage, [place] [phone] MPA Serum IgA 164 mg/dL Normal 78-391 [facility] Comment on above: Performed By: #### C MP, KLFRS, SEPG, MPASRM ####[facility] [address]mq[address] Bowman AveClevelandPage, [place] [phone] MPA Serum IgG 602 mg/dL Low 717-1411 [facility] Comment on above: Performed By: #### C MP, KLFRS, SEPG, MPASRM ####[facility] Iuyrsilsq[address]m034[address] Bow[address] AveCMichelle [place] [phone] MPA Serum IgM 65 mg/dL Normal 53-334 [facility] Comment on above: Performed By: #### C MP, KLFRS, SEPG, MPASRM ####[address]Brenda Ville [phone] Serum [place] 498 mg/dL Low 534-1267 [facility] Comment on above: Performed By: #### C MP, KLFRS, SEPG, MPASRM ####[place] [phone] Serum Lambda 285 mg/dL Normal 253-653 [facility] Comment on above: Performed By: #### C MP, KLFRS, SEPG, MPASRM ####[place] [phone] Staff Review Reviewed by Aquilino Hendricks MD ([id number]) Normal [facility] Comment on above: Performed By: #### C MP, KLFRS, SEPG, MPASRM ####[address] [phone] PROGRESSon 09-02-2017 PROGRESS HNO ID: [id number] thor: Donovan Aquino: (none)Author Type: PhysicianType: Progress NotesFiled: 09/17/2017 9:27 AMNote Text:PATIENT NAME: Tammi Bustamante: [id number] PHYSICIAN: Ben Jiménez MD417 [facility] CenterEpi [place] [address]QYIVYVC CARE PHYSICIAN: Patric Martinez MDOTHER PHYSICIANS:CHIEF COMPLAINT: [...] 09/02/17-COMP METABOLIC PANEL-CBC + DIFF (FOR REMOTE [facility] USE)-PROTEIN ELECTROPHORESIS W/INTERP-MONOCLONAL PROT BLD W/INTERP-KAPPA/PLAZA,FREE,SER Return [...] 1 tablet by mouth once daily.Vit C-Vit D-Kdnqsh-Fal-OM-3 (OCUVITE) 235-85-1-150 yi-tlgp-mv-mg cap Takeby mouth once daily.tamsulosin ER (FLOMAX) [...] to palpation. No flank tenderness.Rod Castorena D.O.Medical OncologistGrimesland, [place] Normal [facility] Protein Electrophor.on 09-02 Albumin 3.74 g/dL Normal 3.37-4.23 [facility] Comment on above: Performed By: #### C TOMY BAR, SEPG, MPASRM ####[facility] [address]th[address]nlpnsq[address] Bow[address] AveClevelandPage, [place] [phone] Alpha 1 Globulin 0.22 gm/dL Normal 0.18-0.31 [facility] Comment on above: Performed By: #### C MP, KLFRS, SEPG, MPASRM ####[facility] AveCMichelle [place] [phone] Alpha 2 Globulin 0.72 gm/dL Normal 0.52-0.97 [facility] Comment on above: Performed By: #### C MP, KLFRS, SEPG, MPASRM ####[facility]CMichelle [place] [phone] Beta Globulin 0.89 gm/dL Normal 0.84-1.36 [facility] Comment on above: Performed By: #### C MP, KLFRS, SEPG, MPASRM ####[facility]CMic[address]le [place] [phone] Gamma Globulin 0.73 gm/dL Normal 0.70-1.44 [facility] Comment on above: Performed By: #### C MP, KLFRS, SEPG, MPASRM ####[facility]CMichelle [place] [phone] Interpretation SEE COMMENT Normal [facility] Comment on above: Result Comment: No d efinitive M protein is identified on protein electrophoresis. Performed By: #### C MP, KLFRS, SEPG, MPASRM ####[facility]CMichelle [place] [phone] M Protein Location N/A Normal [facility] Comment on above: Performed By: #### C MP, KLFRS, SEPG, MPASRM ####[facility]CMichelle [place] [phone] M Dhiraj Concentratn 0.00 gm/dL Normal 0.00 [facility] Comment on above: Performed By: #### C MP, KLFRS, SEPG, MPASRM ####[facility] [address]wudyvtdk5[address] Bowman AvSan [place], [place] [phone] SPE Staff Review Reviewed by Aquilino Hendricks MD ([id number]) Normal [facility] Comment on above: Performed By: #### C MP, KLFRS, SEPG, MPASRM ####[facility] [place], [place] [phone] Total Protein, SPE 6.3 g/dL Normal 6.0-8.4 [facility] Comment on above: Performed By: #### C MP, KLFRS, SEPG, MPASRM ####[facility] [place], [place] [phone] Remote CBCDIF (for [facility] use o nly)on 09-02-2017 Abs Baso 0.03 k/uL Normal 0.00-0.10 [facility] Abs [place] 0.49 k/uL Normal 0.00-0.86 [facility] Abs Neut 4.04 k/uL Normal 1.45-7.50 [facility] Basophils/100 WBC Auto (Bld) 0.5 % Normal [facility] Eosinophils 0.36 10*3/uL Normal 0.00-0.45 [facility] Eosinophils/100 leukocytes 5.8 % Normal [facility] Erythrocyte distribution width Auto Ratio (RBC) 13.4 % Normal 11.5-15.0 [facility] Erythrocytes (RBC) 4.86 10*6/uL Normal 4.20-6.00 [facility] Hematocrit (HCT) 42.4 % Normal 39.0-51.0 [facility] Hemoglobin mass conc (Bld) 14.9 g/dL Normal 13.0-17.0 [facility] Lymphocytes 1.24 10*3/uL Normal 1.00-4.00 [facility] Lymphocytes/100 leukocytes 20.1 % Normal [facility] MCH 30.7 pG Normal 26.0-34.0 [facility] MCHC mass conc (RBC) 35.1 g/dL Normal 30.5-36.0 [facility] MCV 87.2 fL Normal 80.0-100.0 [facility] Monocytes/100 leukocytes 8.0 % Normal [facility] Neutrophils/100 WBC Auto (Bld) 65.6 % Normal [facility] Platelet mean volume (PMV) 10.2 fL Normal 9.0-12.7 [facility] Platelets 143 10*3/uL Low 150-400 [facility] WBC (Leukocytes) 6.16 10*3/uL Normal 3.70-11.00 [facility] Vital Signs Date Time Vital Sign Value Performing Clinician Facility 05-18-2023 10:47-0500 Blood Pressure Location Jourdan URBINA [facility] 05-18-2023 10:47-0500 Diastolic blood pressure 80 mm[Hg] Jourdan URBINA [facility] 05-18-2023 10:47-0500 Heart rate 68 /min Jourdan URBINA [facility] 05-18-2023 10:47-0500 Respiratory rate 16 /min Jourdan URBINA [facility] 05-18-2023 10:47-0500 Systolic blood pressure 127 mm[Hg] Jourdan URBINA [facility] 05-08-2023 13:30-0500 Body height 180.34 cm [facility] 05-08-2023 13:30-0500 Body mass index (BMI) [Ratio] 25.4 kg/m2 05-08-2023 13:30-0500 Body weight 82.55 kg [facility] 05-08-2023 13:30-0500 Diastolic blood pressure 80 mm[Hg] 05-08-2023 13:30-0500 Heart rate 80 /min [facility] 05-08-2023 13:30-0500 Respiratory rate 12 /min [facility] 05-08-2023 13:30-0500 Systolic blood pressure 121 mm[Hg] 04-30-2023 15:12-0500 Body height 180.34 cm [facility] 04-30-2023 15:12-0500 Body mass index (BMI) [Ratio] 25.8 kg/m2 04-30-2023 15:12-0500 Body temperature 96.4 [degF] [facility] 04-30-2023 15:12-0500 Body weight 83.97 kg [facility] 04-30-2023 15:12-0500 Diastolic blood pressure 70 mm[Hg] 04-30-2023 15:12-0500 Heart rate 98 /min [facility] 04-30-2023 15:12-0500 Respiratory rate 18 /min [facility] 04-30-2023 15:12-0500 SaO2% (BldA) [Mass fraction] 97 % 04-30-2023 15:12-0500 Systolic blood pressure 120 mm[Hg] 02-16-2023 10:43-0500 Blood Pressure Location Jourdan URBINA [facility] 02-16-2023 10:43-0500 Diastolic blood pressure 60 mm[Hg] Jourdan URBINA [facility] 02-16-2023 10:43-0500 Heart rate 62 /min Jourdan URBINA [facility] 02-16-2023 10:43-0500 Respiratory rate 16 /min Jourdan URBINA [facility] 02-16-2023 10:43-0500 Systolic blood pressure 105 mm[Hg] Jourdan URBINA [facility] 02-12-2023 11:30-0500 Body height 180.34 cm Wilder Ball Other 02-12-2023 11:30-0500 Body mass index (BMI) [Ratio] 26.02 kg/m2 Wilder Ball Other [facility] Other 02-12-2023 11:30-0500 Body weight 84.64 kg Wilder Ball Other 02-12-2023 11:30-0500 Diastolic blood pressure 74 mm[Hg] Wilder Ball Other 02-12-2023 11:30-0500 Respiratory rate 12 /min Wilder Ball Other [facility] Other 02-12-2023 11:30-0500 Systolic blood pressure 119 mm[Hg] Wilder Ball Other 01-26-2023 09:18-0500 Body height 177.8 cm Kaiser Gómez MD Work Phone: [facility] 01-26-2023 09:18-0500 Body mass index (BMI) [Ratio] 26.69 kg/m2 Kaiser Gómez MD Work Phone: [facility] 01-26-2023 09:18-0500 Body weight 84.37 kg Kaiser Gómez MD Work Phone: [facility] [facility] 01-26-2023 09:18-0500 Diastolic blood pressure 86 mm[Hg] Kaiser Gómez MD Work Phone: [facility] 01-26-2023 09:18-0500 Heart rate 78 /min Kaiser Gómez MD Work Phone: [facility] 01-26-2023 09:18-0500 Systolic blood pressure 124 mm[Hg] Kaiser Gómez MD Work Phone: [facility] 11-13-2022 09:40-0400 Body height 180.34 cm Nabil Sonia Other [employer] [employer] Other 11-13-2022 09:40-0400 Body mass index (BMI) [Ratio] 26.3 kg/m2 Nabil Sonia Other [facility] Other 11-13-2022 09:40-0400 Body temperature 97.7 [degF] Nabil Sonia Other [facility] Other 11-13-2022 09:40-0400 Body weight 85.55 kg Nabil Sonia Other [facility] Other 11-13-2022 09:40-0400 Diastolic blood pressure 70 mm[Hg] Nabil Sonia Other [facility] Other 11-13-2022 09:40-0400 Respiratory rate 18 /min Nabil Sonia Other [facility] Other 11-13-2022 09:40-0400 SaO2% (BldA) [Mass fraction] 96 % Nabil Sonia Other [facility] Other 11-13-2022 09:40-0400 Systolic blood pressure 110 mm[Hg] Nabil Sonia Other [facility] [employer] Other 04-17-2022 11:00-0500 Body height 180.34 cm Nabil Sonia Other [facility] Other 04-17-2022 11:00-0500 Body mass index (BMI) [Ratio] 26.58 kg/m2 Nabil Sonia Other [facility] [employer] Other 04-17-2022 11:00-0500 Body temperature 96.5 [degF] Nabil Sonia Other [facility] Other 04-17-2022 11:00-0500 Body weight 86.46 kg Nabil Sonia Other [facility] Other 04-17-2022 11:00-0500 Diastolic blood pressure 71 mm[Hg] Nabil Sonia Other [facility] Other 04-17-2022 11:00-0500 Respiratory rate 18 /min Nabil Sonia Other [facility] Other 04-17-2022 11:00-0500 SaO2% (BldA) [Mass fraction] 97 % Nabil Sonia Other [facility] Other 04-17-2022 11:00-0500 Systolic blood pressure 131 mm[Hg] Nabil Sonia Other [facility] Other 01-15-2022 15:30-0400 Body height 177.8 cm Wilder Luna [employer] Phone: [facility] [employer] DO Work Phone: 01-15-2022 15:30-0400 Body mass index (BMI) [Ratio] 27.26 kg/m2 Wilder Luna [employer] Phone: [employer] DO Work Phone: 01-15-2022 15:30-0400 Body surface area Derived from formula 2.04 m2 Wilder Luna [employer] Phone: [employer] DO Work Phone: 01-15-2022 15:30-0400 Body weight 86.18 kg Wilder E Ball Work Phone: [facility] [employer] [address] DO Work Phone: 01-15-2022 15:30-0400 Diastolic blood pressure 60 mm[Hg] Wilder E Ball Work Phone: [facility] [employer] 250 DO Work Phone: 01-15-2022 15:30-0400 Heart rate 68 /min Wilder E Ball Work Phone: [facility] [employer] 250 DO Work Phone: 01-15-2022 15:30-0400 Systolic blood pressure 112 mm[Hg] Wilder E Ball Work Phone: [facility] [employer] 250 DO Work Phone: 2021 11:00-0400 Body height 180.34 cm Nabil Sonia Other [employer] Other 2021 11:00-0400 Body mass index (BMI) [Ratio] 26.11 kg/m2 Nabil Sonia Other [facility] [employer] Other 2021 11:00-0400 Body temperature 97.4 [degF] Nabil Sonia Other [facility] [employer] Other 2021 11:00-0400 Body weight 84.91 kg Nabil Sonia Other [facility] [employer] Other 2021 11:00-0400 Diastolic blood pressure 70 mm[Hg] Nabil Sonia Other [facility] Other 2021 11:00-0400 Respiratory rate 18 /min Nabil Sonia Other [facility] Other 2021 11:00-0400 SaO2% (BldA) [Mass fraction] 97 % Nabil Sonia Other [facility] [employer] Other 2021 11:00-0400 Systolic blood pressure 110 mm[Hg] Nabil Sonia Other [facility] [employer] Other 07-29-2021 12:30-0400 Body height 180.34 cm Angel Cotton Other [facility] Other 07-29-2021 12:30-0400 Body mass index (BMI) [Ratio] 26.05 kg/m2 Angel Cotton Other [facility] [employer] Other 07-29-2021 12:30-0400 Body weight 84.73 kg Angel Elslopez Other [facility] Other 04-09-2021 11:40-0500 Body height 177.8 cm Wilder Luna [employer] Work Phone: [employer] DO Work Phone: 04-09-2021 11:40-0500 Body mass index (BMI) [Ratio] 27.12 kg/m2 Wilder Luna Ball Work Phone: [employer] DO Work Phone: 04-09-2021 11:40-0500 Body surface area Derived from formula 2.04 m2 Wilder Luna Ball Work Phone: [employer] DO Work Phone: 04-09-2021 11:40-0500 Body weight 85.73 kg Wilder Luna Ball Work Phone: [facility] [facility] DO Work Phone: 04-09-2021 11:40-0500 Diastolic blood pressure 70 mm[Hg] Wilder Sam Work Phone: [facility] 250 DO Work Phone: 04-09-2021 11:40-0500 Heart rate 72 /min Wilder Luna Ball Work Phone: [facility] 250 DO Work Phone: 04-09-2021 11:40-0500 Systolic blood pressure 122 mm[Hg] Wilder Sam Work Phone: [facility] 250 DO Work Phone: Encounters Encounter Date Encounter Type Care Provider Facility Start: 11-23-2023 ambulatory Jourdan URBINA Facili ty:[facility] Start: 05-18-2023 End: 05-19-2023 ambulatory Jourdan URBINA Facility:[facility] Start: 05-18-2023 End: 05-18-2023 Patient encounter procedure Jourdan URBINA [facility] Start: 05-08-2023 End: 05-08-2023 ambulatory [facility] Work Phone: Start: 05-08-2023 End: 05-08-2023 Patient encounter procedure [facility] Phys[facility] Work Phone: Start: 04-30-2023 End: 04-30-2023 ambulatory [facility] Work Phone: Start: 04-30-2023 End: 04-30-2023 Patient encounter procedure Community Health Physician [facility] Juan C Work Phone: Start: 04-28-2023 End: 04-29-2023 ambulatory Jourdan URBINA Facility[facility] Start: 04-28-2023 End: 04-28-2023 Patient encounter procedure Jourdan URBINA [facility] Start: 04-15-2023 End: 04-15-2023 ambulatory ASIA PALOMINO Not Available Start: 04-09-2023 End: 04-10-2023 ambulatory Priti X Diegozech Facility:[facility] Start: 04-09-2023 End: 04-09-2023 Patient encounter procedure Priti X Orzech [facility] Start: 04-06-2023 End: 04-07-2023 ambulatory Jourdan URBINA Facility:[id number] Start: 03-30-2023 End: 03-30-2023 ambulatory Wilder Sam Other [facility] Other Start: 03-30-2023 Telephone encounter Wilder Sam [facility] Start: 03-18-2023 End: 03-18-2023 ambulatory Nabil Sonia Other [facility] Other Start: 03-18-2023 Telephone encounter Nabil Sonia [facility] Start: 02-16-2023 End: 02-17-2023 ambulatory Jourdan URBINA Facility:[facility] Start: 02-16-2023 End: 02-16-2023 Patient encounter procedure Jourdan URBINA [facility] Start: 02-12-2023 End: 02-12-2023 ambulatory Wilder Sam Other [facility] [employer] Other Start: 02-12-2023 Patient encounter procedure Wilder Sam [facility] Start: 02-12-2023 End: 02-12-2023 Patient encounter procedure [facility] Work Phone: Start: 01-26-2023 End: 01-26-2023 Office outpatient visit 25 minutes Kaiser Gómez MD Work Phone: [facility] Comment on above: Mixed hyperlipidemia (Primary Dx); Ventricular tachycardia, paroxysmal (CMS/HCC); TIA (transient ischemic attack); History of right-sided carotid endarterectomy; Essential hypertension; Bilateral carotid artery stenosis Start: 11-13-2022 End: 11-13-2022 ambulatory Nabil Sonia Other [facility] [employer] Other Start: 11-13-2022 Office outpatient vi sit 25 minutes Nabil Sonia [facility] Juan C Start: 09-09-2022 End: 09-09-2022 ambulatory Nabil Sonia Other [facility] Other Start: 09-09-2022 Telephone encounter Nabil Sonia [facility] Start: 07-16-2022 End: 07-17-[address] KAISER GÓMEZ Facility:[facility] Start: 04-29-2022 End: 04-29-2022 ambulatory Wilder Sam Other [facility] [employer] Other Start: 04-29-2022 Telephone encounter Wilder ZHENG [facility] Start: 04-17-2022 End: 04-17-2022 ambulatory Nabil Sonia Other [facility] Other Start: 04-17-2022 Office outpatient vi sit 15 minutes Nabil Sonia [facility] Start: 04-07-2022 End: 04-07-2022 ambulatory Wilder Sam Other [facility] [employer] Other Start: 04-07-2022 Telephone encounter Wilder Paredes [facility] Start: 04-02-2022 End: 04-02-2022 ambulatory Wilder Sam Other [facility] [employer] Other Start: 04-02-2022 Telephone encounter Wilder Paredes [facility] Start: 03-26-2022 End: 03-27-[address] DOCTOR RANKIN Facility:[facility] Start: 03-11-2022 End: 03-11-2022 ambulatory Conor Baer Other [facility] Other Start: 03-11-2022 Telephone encounter Conor Baer [facility] Start: 02-10-2022 Adult health examination Nabil Sonia Other [employer] Other Start: 01-15-2022 Office outpatient vi sit 15 minutes Wilder Sam Work Phone: [facility] 250 DO Work Phone: Start: 01-15-2022 ambulatory Wilder Sam Fa cility: Start: 01-10-2022 End: 01-11-[address] VANI RIDLEY Facility:[facility] Start: 12-21-2021 End: 12-21-2021 ambulatory ASIA ESPINAL Facility:[facility] Start: 10-30-2021 End: 10-31-[address] WILDER SAM Facility:[facility] Start: 2021 End: 2021 ambulatory Nabil Sonia Other [employer] Other Start: 2021 Office outpatient vi sit 25 minutes Nabil Sonia [facility] Start: 2021 Telephone encounter Nabil Sonia [facility] Start: 08-26-2021 End: 08-26-2021 ambulatory Angel Cotton Facility: Start: 08-01-2021 End: 08-02-[address] WILDER SAM Facility:[facility] Start: 07-29-2021 End: 07-29-2021 ambulatory Angel Cotton Other [employer] Other Start: 07-29-2021 Postop follow up vis it related to original px Angel Cotton [facility] Start: 07-15-2021 End: 07-24-2021 Evaluation and management of inpatient Jose Barber Facility: Start: 07-15-2021 End: 07-15-2021 ambulatory Dixie Carroll Facility: Start: 04-09-2021 Office outpatient vi sit 25 minutes Wilder Sam Work Phone: [facility] 250 DO Work Phone: Start: 04-09-2021 ambulatory Kaiser Gómez II Faci lity: Start: 09-02-2017 End: 09-17-2017 Ambulatory DONOVAN Cox CORRINA [facility] Procedures Date Procedure Procedure Detail Performing Clinician Start: 04-28-2023 Urodynamic studies Patr aayka URBINA Start: 04-06-2023 Transurethral cystoscopy Jourdan URBINA Start: 07-18-2021 Antibody screen Angel Cotton Comment on above: Order Comment: Comme nt FOR SURGERY 07/19 Result Comment: PERF ORMED BY: [place] [address] [place] [address] PATHOLOGIST CORE MAN FAVIO CANAS M.D. Start: 02-08-2020 Extracorporeal shock [...] Work Phone: Operation on gallbladder Luisito ana Cheryl Sam Work Phone: Operative procedure on knee Wilder Sam Work Phone: Procedure on prostate Benjam in E Cec[place] Work Phone: Surgical procedure o n eye proper Wilder Sam Work Phone: Total colonoscopy Wilder Sam Work Phone: Plan of Treatment Date Care Activity Detail Author Start: 02-15-2024 End: 02-15-2024 Patient encounter procedure 02/15/2024 9:40 AM EST Office Visit [facility] [address] [id number] Kaiser Gómez MD [address] [place] [address] 2, [facility] [address] [place] [address] [facility] Start: 01-21-2023 FUV, Provider: Kaiser Gómez, Status: Pen, Time: 1:30 PM FUV, Provider: Kaiser Gómez, Status: Pen, Time: 1:30 PM [facility] Work Phone: Start: 02-11-2022 COVID-19 Vaccine (4 - Pfizer series) COVID-19 Vaccine (4 - Pfizer series) [facility] Start: 01-15-2022 FUV, Provider: Kaiser Gómez, Status: Pen, Time: 3:10 PM FUV, Provider: Kaiser Gómez, Status: Pen, Time: 3:10 PM [facility] 250 DO Work Phone: Start: 09-18-1957 DTaP/Tdap/Td Vaccine s (1 - Tdap) DTaP/Tdap/Td Vaccines (1 - Tdap) [facility] Start: 09-18-1953 Diabetes mellitus screening Diabetes Screening [facility] Start: 1935 Lipid panel Lipid Panel [facility] Start: 1935 Medicare Annual Wellness Visit Medicare Annual Wellness Visit (AWV) [facility] Renal function 2000 panel - Serum or Plasma [facility] Immunizations Immunization Date Immunization Notes Care Provider [facility] 12-17-2022 Flu vaccine, quadrivalent, high-dose, preservative free, age 65y+ (FLUZONE) Kaiser Gómez MD Work Phone: [facility] 12-17-2022 influenza virus vaccine, unspecified formulation Jourdan URBINA [facility] 12-17-2022 influenza, high dose seasonal, preservative-free Wilder Sam Other [facility] [employer] Other 12-17-2021 Fluzone High-Dose Quadrivalent 0.7 ML Intramuscular Suspension Prefilled Syringe Wilder Sam Work Phone: [facility] 12-17-2021 influenza virus vaccine, unspecified formulation Jourdan URBINA [facility] 12-17-2021 Pfizer COVID-19 Vac Bivalent 30 MCG/0.3ML Intramuscular Suspension Wilder Sam Work Phone: [facility] 11-04-2021 Prevnar 20 0.5 ML Intramuscular Suspension Prefilled Syringe Wilder Sam Work Phone: [facility] 07-05-2021 Comirnaty 30 MCG/0.3 ML Intramuscular Suspension Wilder Sam Work Phone: 07-05-2021 SARS-CoV-2 mRNA (cupvfzlbacq-unpc-qtpbt se) vaccine Jourdan URBINA [facility] 12-17-2020 Pfizer-BioNTech COVID-19 Vacc 30 MCG/0.3ML Intramuscular Suspension Wilder Luna Cecy Work Phone: [facility] 12-05-2020 Fluzone High-Dose Quadrivalent 0.7 ML Intramuscular Suspension Prefilled Syringe Wilder Sam Work Phone: [facility] 12-05-2020 influenza virus vaccine, unspecified formulation Jourdan URBINA [facility] 05-06-2020 Pfizer-BioNTech COVID-19 Vacc 30 MCG/0.3ML Intramuscular Suspension Wilder Sam Work Phone: [facility] Comment on above: Result Comment: 2021: [id number] 05-05-2020 Pfizer Purple Cap SARS-CoV-2 Kaiser Gómez MD Work Phone: [facility] Work Phone: 04-06-2020 Pfizer-BioNTech COVID-19 Vacc 30 MCG/0.3ML Intramuscular Suspension Wilder Cheryl Sam Work Phone: [facility] Comment on above: Result Comment: 2021: [id number] 04-05-2020 Pfizer Purple Cap SARS-CoV-2 Kaiser Gómez MD Work Phone: [facility] Work Phone: 12-16-2019 influenza virus vaccine, unspecified formulation Jourdangm URBINA [facility] 12-16-2019 influenza, high dose seasonal, preservative-free Wilder E Ball Work Phone: [facility] 12-09-2019 influenza virus vaccine, unspecified formulation Jourdan URBINA [facility] 11-15-2019 influenza virus vaccine, unspecified formulation Jourdan URBINA [facility] 01-06-2019 zoster vaccine recombinant Kaiser Gómez MD Work Phone: [facility] Work Phone: 12-27-2018 influenza virus vaccine, unspecified formulation Jourdan URBINA [facility] 12-27-2018 influenza, seasonal, injectable Wilder E Ball Work Phone: [facility] 250 DO Work Phone: 12-14-2018 influenza virus vaccine, unspecified formulation Wilder E Ball Work Phone: [facility] 12-10-2018 influenza, high dose seasonal, preservative-free Kaiser Gómez MD Work Phone: [facility] Work Phone: 12-06-2018 influenza virus vaccine, unspecified formulation Jourdan URBINA [facility] 12-06-2018 influenza, high dose seasonal, preservative-free Wilder E Ball Work Phone: [facility] 250 DO Work Phone: 11-08-2018 zoster vaccine recombinant Wilder Cheryl Sam Work Phone: [place] [address] DO Work Phone: 12-14-2017 influenza virus vaccine, unspecified formulation Wilder Sam Work Phone: [place] [address] DO Work Phone: 12-09-2017 influenza virus vaccine, unspecified formulation Jourdan URBINA [facility] 12-09-2017 influenza, injectabl e, quadrivalent, preservative free Kaiser Gómez MD Work Phone: [facility] Work Phone: 12-23-2016 influenza virus vaccine, unspecified formulation Jourdangm URBINA [facility] 12-23-2016 influenza, high dose seasonal, preservative-free Wilder Sam Work Phone: [place] [address] DO Work Phone: 12-14-2016 influenza virus vaccine, unspecified formulation Wilder E Cecy Work Phone: [place] [address] DO Work Phone: 01-15-2016 influenza virus vaccine, unspecified formulation Wilder E Ball Work Phone: [place] [address] DO Work Phone: 01-15-2016 pneumococcal conjuga te vaccine, 13 valent Wilder Sam Work Phone: [place] [address] DO Work Phone: 12-26-2015 pneumococcal conjuga te vaccine, 13 valent Kaiser Gómez MD Work Phone: [facility] Work Phone: 01-08-2015 influenza virus vaccine, unspecified formulation Wilder Sam Work Phone: [place] [address] DO Work Phone: 12-20-2013 influenza virus vaccine, unspecified formulation Wilder Sam Work Phone: [place] [address] DO Work Phone: 10-30-2010 zoster vaccine, live Benjami reynaldo Sam Work Phone: [place] [address] DO Work Phone: 03-16-2010 pneumococcal polysaccharide vaccine, 23 valent Wilder Sam Work Phone: [place] [address] DO Work Phone: 03-16-2008 pneumococcal polysaccharide vaccine, 23 valent Wilder Sam Work Phone: [place] [address] DO Work Phone: pneumococcal Conjuga te, unspecified formulation; Translations: [Need for prophylactic vaccination against Streptococcus pneumoniae (pneumococcus)] Nabil Scott Other [facility] [employer] Other Payers Date Payer Category Payer Medicare [id number] 2022 Unknown 2021 Medicare [id number] 2021 Self-pay 2020 Unknown [id number] 1959 Medicare [id number] 1959 Private Health Insurance [id number] 1935 Unknown [id number] [id number] 1935 Unknown [id number] 1935 Unknown [id number] 2.16.840.1.907692.3.579.2.593 1935 Unknown [id number] 2.16.840.1.173247.3.579.2.593 1935 Unknown [id number] 2.16.840.1.125513.3.579.2.593 1935 Unknown [id number] 2.16.840.1.116182.3.579.2.593 1935 Unknown [id number] 2.16.840.1.861224.3.579.2.593 1935 Unknown [id number] 2.16.840.1.595782.3.579.2.593 1935 Unknown [id number] 2.16.840.1.129670.3.579.2.593 1935 Unknown [id number] 2.16.840.1.859397.3.579.2.1259 1935 Unknown [id number] 2.16.840.1.857690.3.579.2.727 1935 Unknown [id number] 2.16.840.1.298634.3.579.2.727 1935 Unknown [id number] 2.16.840.1.657128.3.579.2.727 1935 Unknown [id number] 2.16.840.1.443616.3.579.2.727 1935 Unknown [id number] 2.16.840.1.695378.3.579.2.727 1935 Unknown [id number] 2.16.840.1.814329.3.579.2.727 Medicare [id number] [id number] Unknown [id number] 2.16.840.1.555554.3.579.2.531 Unknown [id number] 2.16.840.1.058361.3.579.2.531 Unknown [id number] 2.16.840.1.648234.3.579.2.531 Unknown Regular Insurance [id number] Social History Date Type Detail Facility Start: 01-26-2023 No illicit drug use No illicit drug use [facility] 250 DO Work Phone: Comment on above: Twice a week; 1 cup of coffee a da y; Start: 01-26-2023 Sex Assigned At F [facility] Start: 01-26-2023 End: 05-18-2023 Tobacco smoking status NHIS Ex-smoker [facility] Work Phone: History of tobacco use Current smoker [facility] Work Phone: History of tobacco use Cigarette Smoker [facility] Work Phone: Start: 01-26-2023 Tobacco use and exposure Smokeless tobacco non-user [facility] Work Phone: Start: 01-26-2023 Alcohol intake Lifetime non-d oumar (finding) [facility] Work Phone: Start: 1935 Sex Assigned At Not on file [facility] Work Phone: Start: 01-16-2023 End: 01-26-2023 Exposure to SARS-CoV-2 (event) Not sure [facility] Tobacco smoking status Never [facility] Start: 1935 Sex Assigned At Male F [facility] Medical Equipment Procedure Code Equipment Code Equipment Origin al Text Equipment Identifier Dates Cystoscopy, with ureteral calculus manipulation and stent placement Polymeric ureteral stent [id number] FDA Start: 11-19-2019 Cystoscopy, with ureteral calculus manipulation and stent placement Polymeric ureteral stent [id number] FDA Start: 11-19-2019 Craniotomy Craniofacial fixation plate, non-bioabsorbable ()[id number] FDA Start: 07-19-2021 Craniotomy Craniofacial fixation plate, non-bioabsorbable ()[id number] FDA Start: 07-19-2021 Craniotomy Craniofacial bon e screw, non-bioabsorbable, sterile ()[id number] [facility] Start: 07-19-2021 Functional Status Date Assessment Result Facility 05-18-2023 Functional Status N/A [facility] 04-09-2023 Functional Status N/A [facility] 02-16-2023 Functional Status N/A [facility] Clinical Notes 07-14-2021 to 05-18-2023 Note Date [...] urethra. Follow these instructions at home: Take hbyn-vdp-njhwjlj and prescription medicines only as told by [...] provider. Document Revised: 09/18/2021 Document Reviewed: 09/18/2021 [employer] Patient Education 2022 [employer] Follow Up Care 05/01/2023 14:20:13 With:CIARA SALAZAR, Jourdan Anderson, URL Address: [facility] [address] , [place] [address]- [phone] When:Within 6 Month(s) Comments:6 mo fu with PVR scan [facility] 05-01-2023 Note [id number]#[id number] [facility] 04-28-2023 Note [id number]#1.00TIFF [facility] 03-30-2023 Evaluation note Encounter Date Diagnosis Assessment Notes Mar, Primary hypertension (ICD-10 - I10) [facility] [employer] Other 01-03-2024 Evaluation note* Encounter Date Diagnosis Assessment Notes Treatment Notes Treatment Clinical Notes Mar, Vitamin D deficiency (ICD-10 - E55.9) [facility] [employer] Other 12-04-2023 Hospital Discharge instructions Patient Education [...] including vitamins, herbs, eye drops, creams, and xxcz-kqd-kkiwnba medicines. Any problems you or family members [...] provider tells you to take them. Taking mocg-qli-yjabtnq medicines, vitamins, herbs, and supplements. Tests You [...] Follow these instructions at home: Medicines Take zolg-knh-sclaufm and prescription medicines only as told by [...] provider. Document Revised: 11/13/2021 Document Reviewed: 10/12/2020 [employer] Patient Education 2022 [employer] Follow Up Care 01/15/2022 10:12:17 With:CIARA SALAZAR, Jourdan Anderson, URL Address: [facility] [address] , [place] [address]- [phone] When: Unknown [facility] 12-04-2023 NoteUrology Cystoscopy Cystoscopy is [...] including vitamins, herbs, eye drops, creams, and njrb-vyn-xgzgprp medicines. ? Any problems you or family [...] tells you to take them. ? Taking qgkf-cre-trisvma medicines, vitamins, herbs, and supplements. Tests You [...] these instructions at home: Medicines ? Take gvgf-oyv-dyakawm and prescription medicines only as told by [...] or the department th (more content not included)...[facility] 02-12-2023 Evaluation note* Encounter Date Diagnosis Assessment [...] treatment in ER COntinue secondary preventive measures. [employer] [employer] Other 11-13-2023 History of Present illness Narrative* [...] carotid disease. He continues to travel to [place] annually to be evaluated by the vascular [...] , Rfl: ergocalciferol (Vitamin D-2) 1.25 MG (60696 UT) capsule, Take 1 capsule (1,250 mcg) [...] stenosis Followed by his vascular surgeon in [place] [facility] Work Phone: 1(111) 974-838711-13-2023 Instructions* Patient Instructions* Gentry Corona MA - [...] your visit. [facility] Work Phone: 1(931) 550-306008-31-2023 Evaluation note* Encounter Date Diagnosis Assessment Notes [...] Continue oral vitamin D every 2 weeks. [facility] Other 06-27-2023 Evaluation note* Encounter Date Diagnosis Assessment Notes Treatment Notes Treatment Clinical Notes Aug, Stage 3a chronic kidney disease (ICD-10 - N18.31) [facility] Other 02-14-2023 Evaluation note* Encounter Date Diagnosis Assessment Notes Treatment Notes Treatment Clinical Notes Apr, Elevated cholesterol (ICD-10 - E78.00) [facility] Other 02-02-2023 Evaluation note* Encounter Date Diagnosis [...] Change oral vitamin D every 2 weeks. [facility] Other 12-27-2022 Evaluation note* Encounter Date Diagnosis Assessment Notes Treatment Notes Treatment Clinical Notes Feb, Vitamin D deficiency (ICD-10 - E55.9) [facility] Other 07-07-2022 Evaluation note* Encounter Date Diagnosis [...] Change oral vitamin D every 2 weeks. [facility] Other 07-07-2022 Evaluation note* Encounter Date Diagnosis Assessment Notes Treatment Notes Treatment Clinical Notes Sep, Vitamin D deficiency (ICD-10 - E55.9) [facility] Other 05-16-2022 Evaluation note* Encounter Date Diagnosis Assessment Notes Treatment Notes Treatment Clinical Notes July, Subacute subdural hematoma (ICD-10 - S06.5X9A) The patient will increase his activities as tolerated and we will see him back in about 3 weeks, when he is about a month out from surgery for a repeat CT scan without contrast. [facility] Other 05-01-2022 History general Narrative - Reported* [...] 12/2018 Surgical History BRAIN BLEED SURGERY IN [facility] 07/2021 Hospitalization History See past surgical hx Hospitalization History KIDNEY STONES [facility] Other evaluation + Plan note No data available for this section [facility] evaluation + Plan note Future Appointments Appointment Date:04/28/2023 11:00:00 AM Scheduled Provider: Location:[facility] Appointment Type:Urology FT [facility] Evaluation + Plan note Future Appointments Appointment Date:11/23/2023 10:30:00 AM Scheduled Provider:Jourdan URBINA MD Location:[facility] Appointment Type:URO Office Visit [facility] evaluation noteNo InformationNort [employer] Other evaluation note* Diagnosis Mixed hyperlipidemia- Primary Ventricular tachycardia, paroxysmal (CMS/HCC) TIA (transient ischemic attack) Unspecified transient cerebral ischemia History of right-sided carotid endarterectomy Essential hypertension Unspecified essential hypertension Bilateral carotid artery stenosis Occlusion and stenosis of carotid artery without mention of cerebral infarction documented in this encounter [facility] Work Phone: Evaluation note* Diagnosis Onset Date Resolution Status CKD (chronic kidney disease) stage 3, GFR 30-59 ml/min acute [id number] acute Hyperuricemia acute Secondary hyperparathyroidism acute Thrombocytopenia acute Urinary retention due to benign prostatic hyperplasia acute [facility] Work Phone: Evaluation note* Diagnosis Onset Date Resolution Status Hyperuricemia acute Secondary hyperparathyroidism acute Urinary retention due to luisito ign prostatic hyperplasia acute Benign prostatic hyperplasia with lower urinary tract symptoms acute Chronic kidney disease acute Essential (primary) hypertension acute Indwelling Dias catheter present noneactive Gross hematuria noneactive [facility] Work Phone: History general Narrative - [...] past surgical hx Hospitalization History KIDNEY STONES [facility] Other History of Present illness Narrative* Patient [...] merits of a modest diet were reviewed. -[facility] 250 DO Work Phone: History of [...] merits of a modest diet and weight loss.[facility] 250 DO Work Phone: Hospital Discharge instructions No data available for this section [facility] Progress note No data available for this section [facility] reason for referral (narrative)* Consultation (Routine) - Authorized Specialty Diagnoses / Procedures Referred By Alex oconnell Referred To Contact Cardiology Diagnoses Bilateral carotid artery stenosis Procedures Follow Up In Cardiology Kaiser Gómez MD [address] [place] [id number] Kaiser Gómez MD [address] [place] [id number] Referral ID Status Reason Start Date Expiration Date V isits Requested Visits Authorized [id number] Authorized 01/26/2023 01/26/2024 1 1 [facility] Work Phone: Summary Purpose Family History No [...] kidney disease) stage 3, GFR 30-59 ml/min [id number] Hyperuricemia Secondary hyperparathyroidism Thrombocytopenia Urinary retention due [...] section and content) DATE CREATED AUTHOR 09/17/2017 [facility] DATE CREATED AUTHOR AUTHOR'S ORGANIZ ATION 09/04/2018 [facility] DATE CREATED AUTHOR AUTHOR'S ORGANIZ ATION 01/16/2022 [facility] Center DATE CREATED AUTHOR AUTHOR'S ORGANIZ ATION 01/16/2022 [employer] DATE CREATED AUTHOR AUTHOR'S ORGANIZ ATION 04/19/2022 [facility] DATE CREATED AUTHOR AUTHOR'S ORGANIZ ATION 07/24/2022 [facility] DATE CREATED AUTHOR AUTHOR'S ORGANIZ ATION 04/17/2023 [facility] EPIC DATE CREATED AUTHOR AUTHOR'S ORGANIZ ATION 06/03/2023 [facility] REASON FOR VISIT (unrecogniz ed section and content) Reason Comments Annual Exam Care Teams (unrecognized sec tion and content) [employer] Relationship Specialty Start Date End Date Wilder Sam DO [address] [facility] [place] [address] PCP - General 04/09/21 Team Status: Active [...] BE BASED ON THE PRIMARY CLINICAL RECORDS. [facility]. provides no warranty or guarantee of the accuracy or completeness of information in this document.
[2023-06-14] MEDS: HEPARIN SODIUM (PORCINE) 5,000 UNIT/ML VIAL 5000 UNIT SUBQ (22:07)
[2023-06-14] MEDS: 0.9 % SODIUM CHLORIDE 1,000 ML 100 ML IV (22:07)
[2023-06-15] VITALS (9 sets, daily range): BP systolic 104–125; BP diastolic 64–78; PULSE 64–126; TEMP 36.2–36.6; O2SAT 93–98
[2023-06-15] MEDS: CARBIDOPA/LEVODOPA 10 MG/100 MG TABLET 1 TAB PO (05:37)
[2023-06-15 05:43] LABS: Basophils Percent Auto 0.3 % (0.2-2.0); Eosinophils Absolute Auto 0.1 10^3/uL (0.0-0.7); Eosinophils Percent Auto 1.1 % (0.9-7.0); Hematocrit 33.9 % (42.0-54.0); Hemoglobin 11.1 g/dL (14.0-18.0); Immature Granulocytes Abs Auto 0.04 10^3/uL (0.00-0.03); Immature Granulocytes Pct Auto 0.4 % (0.0-0.5); Lymphocytes Absolute Auto 0.8 10^3/uL (1.2-3.8); Lymphocytes Percent Auto 8.1 % (20.5-60.0); Mean Corpuscular HGB Conc 32.7 g/dL (29.9-35.2); Mean Corpuscular Hemoglobin 29.1 pg (25.9-34.0); Mean Platelet Volume 10.2 fL (9.5-13.5); Monocytes Absolute Auto 0.9 10^3/uL (0.3-0.8); Monocytes Percent Auto 9.5 % (1.7-12.0); Neutrophils Absolute Auto 7.9 10^3/uL (1.4-6.5); Neutrophils Percent Auto 80.6 % (43.0-75.0); Platelet Count 111 10^3/uL (150-450); Red Blood Count 3.81 10^6/uL (4.70-6.10); Red Cell Distribution Width 13.6 % (11.0-15.0); White Blood Count 9.8 10^3/uL (4.0-11.0)
[2023-06-15 05:57] LABS: Anion Gap 14.7; BUN Creatinine Ratio 18.2; Calcium 8.3 mg/dL (8.5-10.1); Carbon Dioxide 26.8 mmol/L (21.0-32.0); Chloride 101 mmol/L (98-107); Estimated GFR (African America 60 (>=60); Estimated GFR (Non-African Ame 49 (>=60); Glucose 100 mg/dL (74-106); Potassium 3.5 mmol/L (3.5-5.1); Sodium 139 mmol/L (136-145)
--- NOTE | 2023-06-15 09:04 | P.HP_ITS ---
HPI H&P: HPI History of Present Illness Chief complaint: WEAKNESS, UTI, Sepsis, Epididymitis Narrative: Presented to the emergency room with UTI symptoms, progressive weakness, found to have positive lactate and acute UTI with epididymitis. No abscess formation noted on ultrasound. When I saw the patient up on the medical surgical floor, his pain was much improved. He had no specific complaints Opioid HPI Opioid Management Most Recent Opioid Data: Last Pain Scale 5 06/14/23 18:19 Last Pain Assessment 06/15/23 13:00 Last MAR Pain Assessment 06/14/23 18:19 Last ORT Total Score 0 06/14/23 20:48 Last ORT Risk Category Low Risk 06/14/23 20:48 PFSH PFSH Medical History (Updated 06/14/23 @ 18:29 by JOLLY Lucero) Cataract ?H26.9 - Unspecified cataract (ICD-10) Urgency of urination ?R39.15 - Urgency of urination (ICD-10) Transient ischemic attack ?G45.9 - Transient cerebral ischemic attack, unspecified (ICD-10) Recurrent UTI ?N39.0 - Urinary tract infection, site not specified (ICD-10) Nocturia ?R35.1 - Nocturia (ICD-10) Kidney stones ?N20.0 - Calculus of kidney (ICD-10) Hypertension ?I10 - Essential (primary) hypertension (ICD-10) Hesitancy of micturition ?R39.11 - Hesitancy of micturition (ICD-10) Gross hematuria ?R31.0 - Gross hematuria (ICD-10) 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 - Benign prostatic hyperplasia with lower urinary tract symptoms (ICD- 10) ?N13.8 - Other obstructive and reflux uropathy (ICD-10) Back pain ?M54.9 - Dorsalgia, unspecified (ICD-10) Abdominal pain ?R10.9 - Unspecified abdominal pain (ICD-10) Surgical History (Updated 04/01/23 @ 10:23 by Mauricio Llanes) 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 - Presence of unspecified artificial knee joint (ICD-10) H/O hernia repair ?Z98.890 - Other specified postprocedural states (ICD-10) ?Z87.19 - Personal history of other diseases of the digestive system (ICD-10) Hx of appendectomy ?Z90.49 - Acquired absence of other specified parts of digestive tract (ICD- 10) H/O cystoscopy ?Z98.890 - Other specified postprocedural states (ICD-10) H/O lithotripsy ?Z98.890 - Other specified postprocedural states (ICD-10) Family History (Updated 04/01/23 @ 10:24 by Mauricio Llanes) Brother Kidney stones Sister Kidney stones Father Family history of cancer Social History Within the past year, how often did you have a drink containing alcohol: never Score interpretation: A score less than 4 is consistent with normal alcohol consumption. Smoking status: Never smoker Non-prescribed substance use: denies use Highest level of school completed/degree received: high school graduate Do you think of yourself as: straight/heterosexual Meds Home Medications and Allergies Home Medications ?Medication ?Instructions ?Recorded ?Confirmed ?Type aspirin 81 mg tablet,delayed 81 mg PO DAILY 04/01/23 06/14/23 History release (Adult Aspirin Regimen) hydrochlorothiazide 12.5 mg tablet 12.5 mg PO DAILY 04/01/23 06/14/23 History lutein 25 mg-zeaxanthin 5 mg 1 cap PO DAILY 04/01/23 06/14/23 History capsule (Ocuvite Blue Light) potassium bicarbonate-citric acid 25 meq PO BID 04/01/23 06/14/23 History 25 mEq effervescent tablet (Klor-Con/EF) tamsulosin 0.4 mg capsule (Flomax) 0.4 mg PO DAILY 04/01/23 06/14/23 History ondansetron 4 mg disintegrating 4 mg PO Q6H PRN nausea and 04/21/23 06/14/23 Rx tablet vomiting #12 tabs atorvastatin 80 mg tablet 80 mg PO DAILY 06/15/23 06/15/23 History carbidopa 25 mg-levodopa 100 mg 1.5 tab PO QID 06/15/23 06/15/23 History tablet ergocalciferol (vitamin D2) 1,250 1,250 mcg PO Q14D 06/15/23 06/15/23 History mcg (50,000 unit) capsule latanoprost 0.005 % eye drops 1 drp ophthalmic (eye) .QHS 06/15/23 06/15/23 History levofloxacin 500 mg tablet 500 mg PO DAILY 10 days #10 tabs 06/15/23 Rx Allergies Allergy/AdvReac Type Severity Reaction Status Date / Time No Known Drug Allergies Allergy Verified 04/06/23 07:50 Exam Constitutional Vital Signs, click to edit/add: Last Vital Signs Temp 97.1 F L 06/15/23 07:58 Pulse 93 H 06/15/23 08:00 Resp 16 06/15/23 07:58 BP 104/64 06/15/23 07:58 Pulse Ox 97 06/15/23 07:58 O2 Del Method Room Air 06/15/23 07:58 Documenting provider has reviewed patient's vital signs: yes Common normals: no apparent distress Chest Common normals: inspection of chest normal Respiratory Common normals: normal respiratory effort and no retractions Cardio Common normals: regular rate, regular rhythm and no murmurs GI Common normals: Normal to inspection, nondistended, normoactive bowel sounds present Common normals: no CVA tenderness and external exam normal Results Labs Labs: Short CBC 06/14/23 06/15/23 Range/Units 15:24 04:37 WBC 12.2 H 9.8 (4.0-11.0) 10^3/uL Hgb 12.5 L 11.1 L (14.0-18.0) g/dL Hct 37.3 L 33.9 L (42.0-54.0) % Plt Count 136 L 111 L (150-450) 10^3/uL BMP 06/14/23 06/15/23 15:24 04:37 Sodium 137 139 Potassium 4.0 3.5 Chloride 100 101 Carbon Dioxide 27.5 26.8 BUN 29.0 H 25.0 H Creatinine 1.59 H 1.37 H Glucose 136 H 100 Calcium 9.0 8.3 L Liver Function 06/14/23 Range/Units 15:24 Total Bilirubin 2.9 H (0.2-1.0) mg/dL AST 19 (15-37) U/L ALT <6 L (16-63) U/L Alkaline Phosphatase 88 (46-116) U/L Albumin 3.4 (3.4-5.0) g/dL Urine 06/14/23 Range/Units 17:50 Urine Color Lt. yellow (YELLOW) Urine Clarity Clear (CLEAR) Urine pH 6.5 (5.0-9.0) Ur Specific [place] 1.015 (1.005-1.025) Urine Protein Negative (NEG/TRACE) mg/dL Urine Glucose (UA) Negative (NEGATIVE) mg/dL ABG ABG results: 06/14/23 15:50 VBG pH 7.473 H VBG pCO2 37.1 L Assessment and Plan Assessment and Plan (1) Epididymitis: Plan Fever, sinus tachycardia, respiratory distress, uncontrolled hypertension, leukocytosis secondary to left epididymitis. So far with antibiotics and fluids he feels much improved. Will see how the day progresses. If improved later today and ambulating safely possible discharge. Thrombocytopenia-monitor as an outpatient Iron deficiency anemia-monitor as an outpatient Chronic kidney disease stage II-improved, monitor as an outpatient Observation status: Patient much improved with initial treatment. Patient should have been observation status from the beginning, placed inpatient on accident, if improved later today likely discharged home. If medically necessary treatment will span 2 midnights we will change him back to inpatient status
[2023-06-15] MEDS: ASPIRIN 81 MG TABLET.DR PO (09:06)
[2023-06-15] MEDS: HYDROCHLOROTHIAZIDE 25 MG TABLET 12.5 MG PO (09:06)
[2023-06-15] MEDS: VITS A,C,E/LUTEIN/MINERALS 1 TABLET 1 TAB PO (09:06)
[2023-06-15] MEDS: TAMSULOSIN HCL 0.4 MG CAPSULE 0.400000000000000022 MG PO (09:07)
[2023-06-15] MEDS: ATORVASTATIN CALCIUM 40 MG TABLET PO (09:07)
[2023-06-15] MEDS: HEPARIN SODIUM (PORCINE) 5,000 UNIT/ML VIAL 5000 UNIT SUBQ (09:08)
--- NOTE | 2023-06-15 09:17 | CM.NOTE ---
Rounds made with Dr. Chandra, no discharge for pt today. PT and OT will evaluate for discharge planning.
[2023-06-15 09:28] LABS: Alanine Aminotransferase 17 U/L (16-63); Albumin Globulin Ratio 0.9; Albumin Level 2.8 g/dL (3.4-5.0); Alkaline Phosphatase 79 U/L (46-116); Aspartate Amino Transferase 21 U/L (15-37); Bilirubin Total 2.1 mg/dL (0.2-1.0); Globulin 3.2 g/dL
[2023-06-15 09:38] LABS: Bilirubin Direct 0.6 mg/dL (0.0-0.2)
[2023-06-15] MEDS: POTASSIUM BICARBONATE/CIT 25 MEQ TABLET EFF PO (10:18)
[2023-06-15] MEDS: CARBIDOPA/LEVODOPA 25 MG-100 MG TABLET 1.5 TAB PO (11:48)
--- NOTE | 2023-06-15 12:44 | P.DS_ITS ---
DS: Providers Provider Date of admission: 06/14/23 20:10 Primary care physician: Wilder Kay DO Consults: 06/15/23 06:13 Occupational Therapy Eval and Treat Routine Reason for consultation: Only if needed for Rehab Has provider been notified: No Physical Therapy Eval and Treat Routine Reason for consultation: Eval and Treat Has provider been notified: No DS: Diagnosis Discharge Diagnosis (1) Epididymitis: Plan Fever, sinus tachycardia, respiratory distress, uncontrolled hypertension, leukocytosis secondary to left epididymitis. So far with antibiotics and fluids he feels much improved. Will see how the day progresses. If improved later today and ambulating safely possible discharge. Thrombocytopenia-monitor as an outpatient Iron deficiency anemia-monitor as an outpatient Chronic kidney disease stage II-improved, monitor as an outpatient Observation status: Patient much improved with initial treatment. Patient should have been observation status from the beginning, placed inpatient on accident, if improved later today likely discharged home. DS: Summary Hospital Course Hospital Course: Patient was admitted, given IV fluids and IV antibiotics, he improved very quickly, after lunch she was able to ambulate without significant difficulty. His swelling is improved. He feels back to his normal self so we will discharge patient to home in improved condition. Medications see list. Follow-up with PCP within the next week. Time Spent with Patient Time attestation: Total time spent providing and/or coordinating discharge services: Time spent: greater than 30 minutes Exam Constitutional Vital Signs, click to edit/add: Last Vital Signs Temp 97.4 F L 06/15/23 12:00 Pulse 64 06/15/23 12:00 Resp 16 06/15/23 12:00 BP 125/78 06/15/23 12:00 Pulse Ox 98 06/15/23 12:00 O2 Del Method Room Air 06/15/23 12:00 Documenting provider has reviewed patient's vital signs: yes Common normals: no apparent distress Chest Common normals: inspection of chest normal Respiratory Common normals: normal respiratory effort and no retractions Cardio Common normals: regular rate, regular rhythm and no murmurs GI Common normals: Normal to inspection, nondistended, normoactive bowel sounds present Common normals: no CVA tenderness and external exam normal DS: Data Data Completed and Pending Labs on day of discharge: Labs from last 24 hours 06/15/23 06/14/23 06/14/23 04:37 18:32 17:50 WBC 9.8 RBC 3.81 L Hgb 11.1 L Hct 33.9 L MCV 89.0 MCH 29.1 MCHC 32.7 RDW 13.6 Plt Count 111 L MPV 10.2 Neut % (Auto) 80.6 H Lymph % (Auto) 8.1 L [place] % (Auto) 9.5 Eos % (Auto) 1.1 Baso % (Auto) 0.3 Neut # (Auto) 7.9 H Lymph # (Auto) 0.8 L [place] # (Auto) 0.9 H Eos # (Auto) 0.1 Baso # (Auto) 0.0 Abs Immat Gran (auto) 0.04 H Imm/Tot Granulo (auto) 0.4 VBG pH VBG pCO2 Sodium 139 Potassium 3.5 Chloride 101 Carbon Dioxide 26.8 Anion Gap 14.7 BUN 25.0 H Creatinine 1.37 H Est GFR ( Amer) 60 Est GFR (Non-Af Amer) 49 L BUN/Creatinine Ratio 18.2 Glucose 100 Lactate 1.7 Calcium 8.3 L Total Bilirubin 2.1 H Direct Bilirubin 0.6 H* AST 21 ALT 17 Alkaline Phosphatase 79 Troponin I High Sens Total Protein 6.0 L Albumin 2.8 L Globulin 3.2 Albumin/Globulin Ratio 0.9 Procalcitonin TSH Urine Color Lt. yellow Urine Clarity Clear Urine pH 6.5 Ur Specific [place] 1.015 Urine Protein Negative Urine Glucose (UA) Negative Urine Ketones Negative Urine Occult Blood Negative Urine Nitrite Positive A Urine Bilirubin Negative Urine Urobilinogen 4.0 A Ur Leukocyte Esterase Small A Urine RBC 2-5 A Urine WBC 5-10 A Ur Squamous Epith Cells None seen Urine Crystals None seen Urine Bacteria Moderate A Urine Casts None seen Urine Mucus None seen Ur Culture Indicated? Yes 06/14/23 06/14/23 15:50 15:24 WBC 12.2 H RBC 4.19 L Hgb 12.5 L Hct 37.3 L MCV 89.0 MCH 29.8 MCHC 33.5 RDW 13.9 Plt Count 136 L MPV 10.0 Neut % (Auto) 82.7 H Lymph % (Auto) 5.8 L [place] % (Auto) 10.6 Eos % (Auto) 0.4 L Baso % (Auto) 0.2 Neut # (Auto) 10.1 H Lymph # (Auto) 0.7 L [place] # (Auto) 1.3 H Eos # (Auto) 0.1 Baso # (Auto) 0.0 Abs Immat Gran (auto) 0.04 H Imm/Tot Granulo (auto) 0.3 VBG pH 7.473 H VBG pCO2 37.1 L Sodium 137 Potassium 4.0 Chloride 100 Carbon Dioxide 27.5 Anion Gap 13.5 BUN 29.0 H Creatinine 1.59 H Est GFR ( Amer) 50 L Est GFR (Non-Af Amer) 41 L BUN/Creatinine Ratio 18.2 Glucose 136 H Lactate 2.0 Calcium 9.0 Total Bilirubin 2.9 H Direct Bilirubin AST 19 ALT <6 L Alkaline Phosphatase 88 Troponin I High Sens 12.9 Total Protein 6.8 Albumin 3.4 Globulin 3.4 Albumin/Globulin Ratio 1.0 Procalcitonin 0.15 TSH 0.547 Urine Color Urine Clarity Urine pH Ur Specific [place] Urine Protein Urine Glucose (UA) Urine Ketones Urine Occult Blood Urine Nitrite Urine Bilirubin Urine Urobilinogen Ur Leukocyte Esterase Urine RBC Urine WBC Ur Squamous Epith Cells Urine Crystals Urine Bacteria Urine Casts Urine Mucus Ur Culture Indicated? Discharge Plan Discharge Disposition: Home, Self-Care Condition: Good Discharge Medications: New levofloxacin 500 mg tablet 500 mg PO DAILY 10 Days Qty: 10 0RF Continued ondansetron 4 mg tablet,disintegrating 4 mg PO Q6H PRN (Reason: nausea and vomiting) Qty: 12 0RF aspirin [Adult Aspirin Regimen] 81 mg tablet,delayed release (DR/EC) 81 mg PO DAILY tamsulosin [Flomax] 0.4 mg capsule 0.4 mg PO DAILY hydrochlorothiazide 12.5 mg tablet 12.5 mg PO DAILY Klor-Con/EF 25 mEq tablet, effervescent 25 meq PO BID lutein-zeaxanthin [Ocuvite Blue Light] 25-5 mg capsule 1 cap PO DAILY atorvastatin 80 mg tablet 80 mg PO DAILY carbidopa-levodopa 25-100 mg tablet 1.5 tab PO QID ergocalciferol (vitamin D2) 1,250 mcg (50,000 unit) capsule 1,250 mcg PO Q14D latanoprost 0.005 % drops 1 drp OPHTHALMIC (EYE) .QHS Rx Instructions: BOTH EYES Activity: resume usual activities as tolerated Diet: advance to your usual diet Print Language: Divehi Patient Instructions: Levofloxacin (By mouth) (Levaquin, Levaquin Leva-makenzie), Urinary Tract Infection in Men (GEN) Forms: Portal Instructions Follow Up Appointments: Follow up Dr Luisito Kay ThursdayJune 16 1:30 pm. [phone] Discharge Date/Time: 06/15/23 13:50
--- NOTE | 2023-06-15 14:01 | SWNOTE1 ---
SW met with pt and in room. Pt is going to be discharged home. Pt uses a cane at home and he currently goes to outpt therapy in [place]. Pt and would like to continue with outpt, voices he enjoys getting out of the house. At this time pt and deny discharge needs. SW to follow as needed.
--- OUTSIDE RECORDS SUMMARY | 2023-06-15 14:04 | XMS_ITS | CCD ---
Author Organization [facility] Care Team Providers Care Pony Worker Name Role Phone DONOVAN CASTORENA Unavailable Unavailable [...] Unavailable FANY ., DR CH Attending Unavailable ECCY, DR HDZ Primary Care Unavailable FANY ., [...] CECY, DR HDZ Attending Unavailable CECY, DR HZD Consulting Unavailable CECY, DR HDZ Primary Care Unavailable ELK MOUND, DR VANI Gabriel Consulting Unavailable CECY, DR [...] Status: Ordered take 2 tablets by mo [facility] every twenty-four hours Atorvastatin Calcium 40 MG [...] 11/17/19 Status: Ordered take 1 tablet by [facility] four times daily Carbidopa-Levodopa 25-100 MG TAKE 1 TABLET BY MOUTH FOUR TIMES DAILY Oral for 90 Days Active cephalexin 250 mg oral capsule (4 sources) Cephalosporin Antibacterial Start: 02-16-2023 End: 02-26-2023 take 1 capsule by mouth twice daily Keflex 250 mg Cap 250 mg = 1 cap(s), Oral, BID, X 10 day(s), # 20 cap(s), Refills(s) 0, Pharmacy: [facility], 177, cm, 02/16/23 10:45:00 EST, Height/Length Dosing, 85, kg, 02/16/23 10:45:00 EST, Weight Dosing Start Date: 02/16/23 Stop Date: 02/26/23 Status: Ordered Start: 08-14-2021 take 1 capsule by [facility] twice daily Cephalexin 500 MG Oral Capsule [...] every week Vitamin D (Ergocalciferol) 1.25 MG (27407 UT) Oral Capsule TAKE 1 CAPSULE BY MOUTH EVERY week Quantity: 12 Refills: 0 Ordered: 30-Apr-2021 DO Start : 14-Feb-2021 Complete take 1 capsule by mo uth every other week Ergocalciferol 1.25 MG (94819 UT) 1 capsule Orally Q2 weeks for 90 days Active take 1 capsule by mo uth every week ergocalciferol (Vitamin D-2) 1.25 MG (22356 UT) capsule Take 1 capsule (1,250 mcg) [...] 17, 2019 11:00pm July 15, 2021 1:12pm Ul-My-Kh1-Ykf-Pyr-Wgqv-Lut-Z ea (Ocuvite Adult 50 Plus) 250 mg (90 mg-160 mg) capsule (2 sources) Start: 04-30-2023 take 1 capsule by mouth twice daily Hn-Sr-Zg1-Lcc-Yrp-Nvha-Lut-Paulo (Ocuvite Adult 50 Plus) 250 mg (90 [...] discomfort, # 30 tab(s), Refills(s) 0, Pharmacy: [facility], 177, cm, 02/16/23 10:45:00 EST, Height/Length [...] Daily, # 30 cap(s), Refills(s) 11, Pharmacy: [facility], 177, cm, 01/15/22 9:44:00 EDT, Height/Length [...] procedure, # 2 tab(s), Refills(s) 0, Pharmacy: [facility], 177, cm, 02/16/23 10:45:00 EST, Height/Length [...] Ordered: 09-Apr-2021 DO Active polyethylene glycol 3350 955178 mg / potassium chloride 2980 mg / sodium bicarbonate 6720 mg / sodium chloride 5840 mg / sodium sulfate 29867 mg powder for oral solution (2 sources) [...] BID, # 60 tab(s), Refills(s) 11, Pharmacy: [facility], 177, cm, 01/15/22 9:44:00 EDT, Height/Length [...] current use of drug therapy; Translations: [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] Episodic Other circulatory disease [...] 07-29-2021 Episodic Other aftercare (1 source) 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; Translations: [OTH CORRECTION CURRENT DRUG THERAPY] Onset: 12-23-2021 Episodic Other aftercare (1 source) 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; 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] Onset: 12-23-2021 Episodic Other gastrointestinal disorders (4 sources) Constipation, unspecified; Translations: [CONSTIPATION UNSPECIFIED] Onset: 12-21-2021 Episodic Unclassified (1 source) Onset: 01-26-2023 01-26-2023 Results Test Name Value Interpretation Reference Range Facility Consent for Procedure/Surger yon 06-02-2023 Consent for Procedure/Surgery [id number]#1.00TIFF Normal [facility] IntraOperative Documentson 0 06-02-2023 IntraOperative Documents [id number]#1.00TIFF Normal [facility] Lab Reportson 05-18-2023 Lab Reports [id number]#1.00TIFF Normal [facility] Patient Educationon 05-18-19 Patient Education Urology Benign [...] Follow these instructions at home: ? Take djzj-kwm-gpcsjfd and prescription medicines only as told by [...] the medicine (more content not included)... Normal [facility] Urology Office/Clinic Noteon 05-18-2023 Urology Office/Clinic Note Chief Complaint Discuss Uro's HPI Staff Pt last seen in our office 02/16/23 due to Recurrent UTI, BPH & Kidny Stone. *Effer K 25meq BID. Also started on Keflex 250mg BID l35wiwy that day. S/P Cysto 04/06/23 *Catheter placed, dc'd home with 1wk Doxy therapy (per EMR messages- bladder looked like snow globe) Urodynamics completed 04/28/23 Catheter removed in our office today. Pt's is concerned as to why pt had catheter. Is it needed half-way? Pt did have a couple hematuria/dark urine [...] [facility] [address], [place] [address] [phone] Additional Instructions: 6 mo fu with PVR scan Patient Education Benign Prostatic Hyperplasia Daisy Esteban, personally scribed for Dr. Ubrina on 05/18/2023 11:01:40. . Documentation recorded by [...] 0.4 mg= (more content not included)... Normal [facility] Comment on above: Result Comment: Elec tronically [...] and pvr scan. -Take Keflex 250mg bid [id number]. Rx sent to in [place]. -Will schedule cystoscopy with PVR. The risks [...] When Contact Information CIARA SALAZAR, Jourdan Anderson, [facility] [address], [place] [address] [phone] Additional Instructions: sched cysto Patient Education Cystoscopy [...] Use:. Cigarettes, H (more content not included)... [facility] Comment on above: Result Comment: Elec tronically Signed By: Daisy Meadows\.br\Date and Time Signed: 04/30/23 14:08 EST IntraOperative Documentson 0 04-29-2023 IntraOperative Documents [id number]#1.00TIFF [facility] Consent for Procedure/Surger yon 04-28-2023 Consent for Procedure/Surgery [id number]#1.00TIFF [facility] Consent for Treatmenton 04-16 Consent for Treatment [id number]#1.00TIFF [facility] ED Note-Physicianon 04-28-19 ED Note-Physician [id number]#1.00TIFF [facility] IntraOperative Documentson 0 04-28-2023 IntraOperative Documents [id number]#1.00TIFF [facility] Ambulatory Visit Summaryon 0 04-09-2023 Ambulatory [...] for choosing us for your care. Normal [facility] Operative Reporton Operative Report [id number]#1.00TIFF [facility] Consent for Procedure/Surger yon 02-20-2023 Consent for Procedure/Surgery [id number]#1.00TIFF [facility] RAD - MISCon 02-20-2023 RAD - MISC [id number]#1.00TIFF [facility] Ambulatory Visit Summaryon 1 04-19-2022 Ambulatory Visit Summary TAMMI PATEL :1935 Visit Date:02/16/2023 Ambulatory Visit Instructions Your Diagnosis Recurrent UTI BPH with urinary obstruction Kidney stone Tests Performed Urnls Dip Stick Auto w/o Microscopy POC 93534 Your Care Team Attending Physician - CIARA [...] [facility] [address] , [place] [address]- [phone] Medications What How Much When Instructions New cephalexin (Keflex 250 mg Cap) 1 Capsules By Mouth 2 times a day Duration: 10 Days Pickup at [facility] Unchanged aspirin (aspirin 81 mg oral [...] physician if questions or concerns Pharmacy Information [facility]: [address] [place] [id number] [phone] Test Results Urnls Dip Stick Auto w/o Microscopy POC 98439 (02/16/2023) Bilirubin Urine Dipstick - Negative Blood Urine Dipstick - Trace-lysed Glucose Urine Dipstick - Negative Ketones Urine Dipstick - Trace - 5 mg/dl Leukocytes Urine Dipstick - 1+ Small Nitrite Urine Dipstick - Positive Protein Urine Dipstick - 1+ (30 mg/dl) Specific [place] Urine Dipstick - 1.025 Urine Appearance Urine [...] a uri (more content not included)... Normal [facility] Physician Orderon 01-13-2023 Physician Order [id number]#1.00TIFF Normal [facility] LIPID PROFILEon 07-16-2022 CHOL-HDL RATIO NORM SEE BELOW Normal [facility] Comment on above: Result Comment: 3.3 - 4.4 LOW RISK 4.4 - 7.1 AVERAGE RISK 7.1 - 11.0 MODERATE RISK >11.0 HIGH RISK Performed By: #### L IPID, AST, BMP #### [facility] [address] [address] [address] Anu Magdaleno Cholesterol [Mass/Vol] 105 mg/dL Normal <=200 [facility] Comment on above: Performed By: #### L IPID, AST, BMP #### [facility] [address] [address] [address] Anu Magdaleno Cholesterol in HDL [Mass/Vol] 47 mg/dL Normal 40-60 [facility] Comment on above: Performed By: #### L IPID, AST, BMP #### [facility] [address] [address] [address] Anu Magdaleno Cholesterol in LDL [Mass/Vol] 46.2 mg/dL Normal [facility] Comment on above: Performed By: #### L IPID, AST, BMP #### [facility] [address] [address] [address] Anu Magdaleno Cholesterol.total/ Cholesterol in HDL [Mass ratio] 2.2 {ratio} Normal [facility] Comment on above: Performed By: #### L IPID, AST, BMP #### [facility] [address] [address] [address] Anu Magdaleno HDL NORMAL > or = 60 mg/dl - LO W CARDIOVASCULAR RISK <40 mg/dl - HIGH CARDIOVASCULAR RISK Normal [facility] Comment on above: Performed By: #### L IPID, AST, BMP #### [facility] [address] [place] [address] Dr. Anu Magdaleno LDL CALC NORMAL SEE BELOW Normal [facility] Comment on above: Result Comment: <100 mg/dl OPTIMAL 100 - 129 mg/dl NEAR OR ABOVE OPTIMAL 130 - 159 mg/dl BORDERLINE HIGH 160 - 189 mg/dl HIGH >190 mg/dl VERY HIGH Performed By: #### L IPID, AST, BMP #### [facility] [address] [place] [address] Dr. Anu Magdaleno Triglyceride [Mass/Vol] 59 mg/dL Normal <=150 [facility] Comment on above: Performed By: #### L IPID, AST, BMP #### [facility] [address] [place] [address] Dr. Anu Magdaleno VLDL CALC 11.8 mg/dL Normal [facility] Comment on above: Performed By: #### L IPID, AST, BMP #### [facility] [address] [place] [address] Dr. Anu Magdaleno PROF CHEM 8 (BAS METB)on Anion gap [Moles/Vol] 13.1 mmol/L Normal [facility] Comment on above: Performed By: #### F ERR, FETIBC, VITB12 #### [facility] [address] [place] [address] Dr. Anu Magdaleno Calcium [Mass/Vol] 9.2 mg/dL Normal 8.5-10.1 [facility] Comment on above: Performed By: #### F ERR, FETIBC, VITB12 #### [facility] [address] [place] [address] Dr. Anu Magdaleno Chloride [Moles/Vol] 102 mmol/L Normal 98-107 [facility] Comment on above: Performed By: #### F ERR, FETIBC, VITB12 #### [facility] [address] [place] [address] Dr. Anu Magdaleno CO2 [Moles/Vol] 28.3 mmol/L Normal 21.0-32.0 [facility] Comment on above: Performed By: #### F ERR, FETIBC, VITB12 #### [facility] [address] [place] [address] Dr. Anu Magdaleno Creatinine [Mass/Vol] 1.40 mg/dL Critically high 0.70-1.30 [facility] Comment on above: Performed By: #### F ERR, FETIBC, VITB12 #### [facility] [address] [place] [address] Dr. Anu Magdaleno EGFR-AF TUNISIAN 58 mL/min/1.73m2 Critically low >=60 [facility] Comment on above: Performed By: #### F ERR, FETIBC, VITB12 #### [facility] [address] [address] [address] Anu Magdaleno EGFR-NON AF TUNISIAN 48 mL/min/1.73m2 Critically low >=60 [facility] Comment on above: Performed By: #### F ERR, FETIBC, VITB12 #### [facility] [address] [address] [address] Anu Magdaleno Glucose [Mass/Vol] 124 mg/dL Critically high 74-[address] [facility] Comment on above: Performed By: #### F ERR, FETIBC, VITB12 #### [facility] [address] [place] [address] Dr. Anu Magdaleno Potassium [Moles/Vol] 4.4 mmol/L Normal 3.5-5.1 [facility] Comment on above: Performed By: #### F ERR, FETIBC, VITB12 #### [facility] [address] [address] [address] Anu Magdaleno Sodium [Moles/Vol] 139 mmol/L Normal 136-145 [facility] Comment on above: Performed By: #### F ERR, FETIBC, VITB12 #### [facility] [address] [address] [address] Anu Magdaleno Urea nitrogen [Mass/Vol] 20.0 mg/dL Critically high 7.0-18.0 [facility] Comment on above: Performed By: #### F ERR, FETIBC, VITB12 #### [facility] [address] [address] [address] Anu Magdaleno Urea nitrogen/Creatinin e [Mass ratio] 14.3 mg/mg Normal [facility] Comment on above: Performed By: #### F ERR, FETIBC, VITB12 #### [facility] [address] [place] [address] Dr. Anu Magdaleno SGRuby 07-16-2022 AST [Catalytic activity/Vol] 16 U/L Normal 15-37 [facility] Comment on above: Performed By: #### L IPID, AST, BMP #### [facility] [address] [address] [address] HEAD WO CONon [...] ASIA ESPINAL Date: 2022-03-26 09:12 Normal [facility] Office Visit (Cardiology)on 01-15-2022 Follow-up visit Diagnoses/Problems [...] Recorded: 15Jan2022 03:30PM Heart Rate68, L Radial Awyqtnrt520, RUE, Sitting Oahcfaoqi68, RUE, Sitting Height5 ft 10 in Zduxlp554 lb BMI Xszsykvvpv09.26 kg/m2 BSA Calculated2.04 Tobacco Useb) No PHQ-2 [...] depression screening assessment No [facility] DO Work Phone: Fall risk assessment b) One or more falls in the last year [facility] DO Work Phone: Tobacco use status CPHS b) No [facility] DO Work Phone: XR KUB 1 [...] VANI RIDLEY Date: 2022-01-10 17:59 Normal [facility] XR KUB_DECUB or ERECTon [...] ASIA ESPINAL Date: 2021-12-21 11:40 Normal [facility] CBC AUTO DIFFon 10-30-2021 BASO # 0.0 103/ul Normal 0.0-0.1 [facility] Comment on above: Performed By: #### C BC #### [facility] [address] [address] [address] Anu Magdaleno Basophils/100 WBC (Bld) 0.7 % Normal 0.2-2.0 [facility] Comment on above: Performed By: #### C BC #### [facility] [address] [place] [address] Dr. Anu Magdaleno EO # 0.5 103/ul Normal 0.0-0.7 [facility] Comment on above: Performed By: #### C BC #### [facility] [address] [place] [address] Dr. Anu Magdaleno Eosinophils/100 WBC (Bld) 7.7 % Critically high 0.9-7.0 [facility] Comment on above: Performed By: #### C BC #### [facility] [address] [place] [address] Dr. Anu Magdaleno Erythrocyte distribution width (RBC) [Ratio] 13.7 % Normal 11.0-15.0 [facility] Comment on above: Performed By: #### C BC #### [facility] [address] [place] [address] Dr. Anu Magdaleno Hematocrit (Bld) [Volume fraction] 39.5 % Critically low 42.0-54.0 [facility] Comment on above: Performed By: #### C BC #### [facility] [address] [place] [address] Dr. Anu Magdaleno Hemoglobin (Bld) [Mass/Vol] 13.3 g/dL Critically low 14.0-18.0 [facility] Comment on above: Performed By: #### C BC #### [facility] [address] [place] [address] Dr. Anu Magdaleno IG # 0.02 10e3/ul Normal 0.00-0.03 [facility] Comment on above: Performed By: #### C BC #### [facility] [address] [place] [address] Dr. Anu Magdaleno IG % 0.3 % Normal 0.0-0.5 [facility] Comment on above: Performed By: #### C BC #### [facility] [address] [place] [address] Dr. Anu Magdaleno LYMPH # 1.1 103/ul Critically low 1.2-3.8 [facility] Comment on above: Performed By: #### C BC #### [facility] [address] [place] [address] Dr. Anu Magdaleno Lymphocytes/100 WBC (Bld) 18.4 % Critically low 20.5-60.0 [facility] Comment on above: Performed By: #### C BC #### [facility] [address] [place] [address] Dr. Anu Magdaleno MANUAL DIFF REQ NO Normal [facility] Comment on above: Performed By: #### C BC #### [facility] [address] [place] [address] Dr. Anu Magdaleno MCH (RBC) [Entitic mass] 30.0 pg Normal 25.9-34.0 [facility] Comment on above: Performed By: #### C BC #### [facility] [address] [place] [address] Dr. Anu Magdaleno MCHC (RBC) [Mass/Vol] 33.7 g/dL Normal 29.9-35.2 [facility] Comment on above: Performed By: #### C BC #### [facility] [address] [place] [address] Dr. Anu Magdaleno MCV (RBC) [Entitic vol] 89.2 fL Normal 80.0-94.0 [facility] Comment on above: Performed By: #### C BC #### [facility] [address] [place] [address] Dr. Anu Magdaleno MONO # 0.4 103/ul Normal 0.3-0.8 [facility] Comment on above: Performed By: #### C BC #### [facility] [address] [place] [address] Dr. Anu Magdaleno Monocytes/100 WBC (Bld) 7.4 % Normal 1.7-12.0 [facility] Comment on above: Performed By: #### C BC #### [facility] [address] [place] [address] Dr. Anu Magdaleno NEUT # 3.9 103/ul Normal 1.4-6.5 [facility] Comment on above: Performed By: #### C BC #### [facility] [address] [address] [address] Anu Magdaleno Neutrophils/100 WBC (Bld) 65.5 % Normal 43.0-75.0 [facility] Comment on above: Performed By: #### C BC #### [facility] [address] [address] [address] Anu Magdaleno Platelet mean volume (Bld) [Entitic vol] 9.5 fL Normal 9.5-13.5 [facility] Comment on above: Performed By: #### C BC #### [facility] [address] [place] [address] Dr. Anu Magdaleno PLT 121 103/ul Critically low 150-450 [facility] Comment on above: Performed By: #### C BC #### [facility] [address] [place] [address] Dr. Anu Magdaleno RBC 4.43 106/ul Critically low 4.70-6.10 [facility] Comment on above: Performed By: #### C BC #### [facility] [address] [place] [address] Dr. Anu Magdaleno WBC 6.0 103/ul Normal 4.0-11.0 [facility] Comment on above: Performed By: #### C BC #### [facility] [address] [place] [address] Dr. Anu Magdaleno FERRITINon 10-30-2021 Ferritin [Mass/Vol] 137.0 ng/mL Normal 26.0-388.0 [facility] Comment on above: Performed By: #### F ERR, FETIBC, VITB12 #### [facility] [address] [place] [address] Dr. Anu Magdaleno IRON AND TIBCon 10-30-2021 % SATURATION 21.8 % Normal [facility] Comment on above: Performed By: #### F ERR, FETIBC, VITB12 #### [facility] [address] [place] [address] Dr. Anu Magdaleno Iron [Mass/Vol] 67.0 ug/dL Normal 65.0-175.0 [facility] Comment on above: Performed By: #### F ERR, FETIBC, VITB12 #### [facility] [address] [place] [address] Dr. Anu Magdaleno TIBC DIRECT 307.0 ug/dL Normal 250.0-450. 0 [facility] Comment on above: Performed By: #### F ERR, FETIBC, VITB12 #### [facility] [address] [address] [address] Anu Magdaleno VITAMIN B12on 10-30-2021 Cobalamin (Vitamin B12) [Mass/Vol] 385.0 pg/mL Normal 193.0-986. 0 [facility] Comment on above: Performed By: #### F ERR, FETIBC, VITB12 #### [facility] [address] [place] [address] head/brain wo conon 08-26 CT head/brain wo con [facility] [place] [address] [place] [address] CT Scan Report Signed Patient: Tammi Patel MR#: [id number] : 1935 Acct:[id number] Age/Sex: 85 / M ADM Date: 08/26/21 Loc: CT Room: Type: [facility] Attending Dr: Angel Cotton MD Ordering [...] Jericho Esparza M.D.08/26/2021 10:23 AM Dictation Location: [place] [address] Transcribed By: [facility] 08/26/21 1023 Dictated By: Jericho Esparza II, MD 08/26/21 1019 Signed By: 08/26/21 1023 [facility] CBC AUTO DIFFon 08-01-2021 BASO # 0.1 103/ul Normal 0.0-0.1 [facility] Comment on above: Performed By: #### C BC #### [facility] [address] [place] [address] Dr. Anu Magdaleno Basophils/100 WBC (Bld) 0.7 % Normal 0.2-2.0 [facility] Comment on above: Performed By: #### C BC #### [facility] [address] [address] [address] Anu Magdaleno EO # 0.3 103/ul Normal 0.0-0.7 [facility] Comment on above: Performed By: #### C BC #### [facility] [address] [address] [address] Anu Magdaleno Eosinophils/100 WBC (Bld) 3.4 % Normal 0.9-7.0 [facility] Comment on above: Performed By: #### C BC #### [facility] [address] [place] [address] Dr. Anu Magdaleno Erythrocyte distribution width (RBC) [Ratio] 13.5 % Normal 11.0-15.0 [facility] Comment on above: Performed By: #### C BC #### [facility] [address] [place] [address] Dr. Anu Magdaleno Hematocrit (Bld) [Volume fraction] 40.7 % Critically low 42.0-54.0 [facility] Comment on above: Performed By: #### C BC #### [facility] [address] [place] [address] Dr. Anu Magdaleno Hemoglobin (Bld) [Mass/Vol] 13.1 g/dL Critically low 14.0-18.0 [facility] Comment on above: Performed By: #### C BC #### [facility] [address] [place] [address] Dr. Anu Magdaleno IG # 0.05 10e3/ul Critically high 0.00-0.03 [facility] Comment on above: Performed By: #### C BC #### [facility] [address] [place] [address] Dr. Anu Magdaleno IG % 0.6 % Critically high 0.0-0.5 [facility] Comment on above: Performed By: #### C BC #### [facility] [address] [place] [address] Dr. Anu Magdaleno LYMPH # 0.8 103/ul Critically low 1.2-3.8 [facility] Comment on above: Performed By: #### C BC #### [facility] [address] [place] [address] Dr. Anu Magdaleno Lymphocytes/100 WBC (Bld) 9.6 % Critically low 20.5-60.0 [facility] Comment on above: Performed By: #### C BC #### [facility] [address] [place] [address] Dr. Anu Magdaleno MANUAL DIFF REQ NO Normal [facility] Comment on above: Performed By: #### C BC #### [facility] [address] [address] [address] Anu Magdaleno MCH (RBC) [Entitic mass] 29.0 pg Normal 25.9-34.0 [facility] Comment on above: Performed By: #### C BC #### [facility] [address] [place] [address] Dr. Anu Magdaleno MCHC (RBC) [Mass/Vol] 32.2 g/dL Normal 29.9-35.2 [facility] Comment on above: Performed By: #### C BC #### [facility] [address] [place] [address] Dr. Anu Magdaleno MCV (RBC) [Entitic vol] 90.0 fL Normal 80.0-94.0 [facility] Comment on above: Performed By: #### C BC #### [facility] [address] [place] [address] Dr. Anu Magdaleno MONO # 0.5 103/ul Normal 0.3-0.8 [facility] Comment on above: Performed By: #### C BC #### [facility] [address] [place] [address] Dr. Anu Magdaleno Monocytes/100 WBC (Bld) 6.4 % Normal 1.7-12.0 [facility] Comment on above: Performed By: #### C BC #### [facility] [address] [place] [address] Dr. Anu Magdaleno NEUT # 6.4 103/ul Normal 1.4-6.5 [facility] Comment on above: Performed By: #### C BC #### [facility] [address] [place] [address] Dr. Anu Magdaleno Neutrophils/100 WBC (Bld) 79.3 % Critically high 43.0-75.0 [facility] Comment on above: Performed By: #### C BC #### [facility] [address] [place] [address] Dr. Anu Magdaleno Platelet mean volume (Bld) [Entitic vol] 10.0 fL Normal 9.5-13.5 [facility] Comment on above: Performed By: #### C BC #### [facility] [address] [address] [address] Anu Magdaleno PLT 154 103/ul Normal 150-450 [facility] Comment on above: Performed By: #### C BC #### [facility] [address] [address] [address] Anu Magdaleno RBC 4.52 106/ul Critically low 4.70-6.10 [facility] Comment on above: Performed By: #### C BC #### [facility] [address] [address] [address] Anu Magdaleno WBC 8.0 103/ul Normal 4.0-11.0 [facility] Comment on above: Performed By: #### C BC #### [facility] [address] [place] [address] Dr. Anu Magdaleno LIPID PROFILEon 08-01-2021 CHOL-HDL RATIO NORM SEE BELOW Normal [facility] Comment on above: Result Comment: 3.3 - 4.4 LOW RISK 4.4 - 7.1 AVERAGE RISK 7.1 - 11.0 MODERATE RISK >11.0 HIGH RISK Performed By: #### F ERR, FETIBC, VITB12 #### [facility] [address] [place] [address] Dr. Anu Magdaleno Cholesterol [Mass/Vol] 102 mg/dL Normal <=200 [facility] Comment on above: Performed By: #### F ERR, FETIBC, VITB12 #### [facility] [address] [place] [address] Dr. Anu Magdaleno Cholesterol in HDL [Mass/Vol] 50 mg/dL Normal 40-60 [facility] Comment on above: Performed By: #### F ERR, FETIBC, VITB12 #### [facility] [address] [place] [address] Dr. Anu Magdaleno Cholesterol in LDL [Mass/Vol] 34.6 mg/dL Normal [facility] Comment on above: Performed By: #### F ERR, FETIBC, VITB12 #### [facility] [address] [address] [address] Anu Magdaleno Cholesterol.total/ Cholesterol in HDL [Mass ratio] 2.0 {ratio} Normal [facility] Comment on above: Performed By: #### F ERR, FETIBC, VITB12 #### [facility] [address] [place] [address] Dr. Anu Magdaleno HDL NORMAL > or = 60 mg/dl - LO W CARDIOVASCULAR RISK <40 mg/dl - HIGH CARDIOVASCULAR RISK Normal [facility] Comment on above: Performed By: #### F ERR, FETIBC, VITB12 #### [facility] [address] [address] [address] Anu Magdaleno LDL CALC NORMAL SEE BELOW Normal [facility] Comment on above: Result Comment: <100 mg/dl OPTIMAL 100 - 129 mg/dl NEAR OR ABOVE OPTIMAL 130 - 159 mg/dl BORDERLINE HIGH 160 - 189 mg/dl HIGH >190 mg/dl VERY HIGH Performed By: #### F ERR, FETIBC, VITB12 #### [facility] [address] [address] [address] Anu Magdaleno Triglyceride [Mass/Vol] 87 mg/dL Normal <=150 [facility] Comment on above: Performed By: #### F ERR, FETIBC, VITB12 #### [facility] [address] [place] [address] Dr. Anu Magdaleno VLDL CALC 17.4 mg/dL Normal [facility] Comment on above: Performed By: #### F ERR, FETIBC, VITB12 #### [facility] [address] [address] [address] Anu Magdaleno PROF CHEM 8 (BAS METB)on Anion gap [Moles/Vol] 13.8 mmol/L Normal [facility] Comment on above: Performed By: #### F ERR, FETIBC, VITB12 #### [facility] [address] [place] [address] Dr. Anu Magdaleno Calcium [Mass/Vol] 9.0 mg/dL Normal 8.5-10.1 [facility] Comment on above: Performed By: #### F ERR, FETIBC, VITB12 #### [facility] [address] [place] [address] Dr. Anu Magdaleno Chloride [Moles/Vol] 100 mmol/L Normal 98-107 [facility] Comment on above: Performed By: #### F ERR, FETIBC, VITB12 #### [facility] [address] [place] [address] Dr. Anu Magdaleno CO2 [Moles/Vol] 28.4 mmol/L Normal 21.0-32.0 [facility] Comment on above: Performed By: #### F ERR, FETIBC, VITB12 #### [facility] [address] [place] [address] Dr. Anu Magdaleno Creatinine [Mass/Vol] 1.31 mg/dL Critically high 0.70-1.30 [facility] Comment on above: Performed By: #### F ERR, FETIBC, VITB12 #### [facility] [address] [place] [address] Dr. Anu Magdaleno EGFR-AF TUNISIAN >60 Normal >=60 [facility] Comment on above: Performed By: #### F ERR, FETIBC, VITB12 #### [facility] [address] [place] [address] Dr. Anu Magdaleno EGFR-NON AF TUNISIAN 52 mL/min/1.73m2 Critically low >=60 [facility] Comment on above: Performed By: #### F ERR, FETIBC, VITB12 #### [facility] [address] [place] [address] Dr. Anu Magdaleno Glucose [Mass/Vol] 118 mg/dL Critically high 74-[address] [facility] Comment on above: Performed By: #### F ERR, FETIBC, VITB12 #### [facility] [address] [place] [address] Dr. Anu Magdaleno Potassium [Moles/Vol] 4.2 mmol/L Normal 3.5-5.1 [facility] Comment on above: Performed By: #### F ERR, FETIBC, VITB12 #### [facility] [address] [place], [place] [id number] Dr. Anu Magdaleno Sodium [Moles/Vol] 138 mmol/L Normal 136-145 [facility] Comment on above: Performed By: #### F ERR, FETIBC, VITB12 #### [facility] [address] [place] [address] Dr. Anu Magdaleno Urea nitrogen [Mass/Vol] 21.0 mg/dL Critically high 7.0-18.0 [facility] Comment on above: Performed By: #### F ERR, FETIBC, VITB12 #### [facility] [address] [address] [address] Anu Magdaleno Urea nitrogen/Creatinin e [Mass ratio] 16.0 mg/mg Normal [facility] Comment on above: Performed By: #### F ERR, FETIBC, VITB12 #### [facility] [address] [place] [address] Dr. Anu Magdaleno SGOTon 08-01-2021 AST [Catalytic activity/Vol] 13 U/L Critically low 15-37 [facility] Comment on above: Performed By: #### F ERR, FETIBC, VITB12 #### [facility] [address] [address] [address] Anu Magdaleno Basic Metabolic Panelon 05 Calcium [Mass/Vol] 9.0 mg/dL Normal 8.2-10.2 [facility] Comment on above: Performed By: #### C BC, PT, PTT, BMP #### [facility] [address] [place] [address] [place] Chloride [Moles/Vol] 104 mmol/L Normal 95-[address] [facility] Comment on above: Performed By: #### C BC, PT, PTT, BMP #### [facility] [address] [id number] [place] CO2 [Moles/Vol] 23.8 mmol/L Normal 22.0-30.0 [facility] Comment on above: Performed By: #### C BC, PT, PTT, BMP #### [facility] [address] [id number] [place] Creatinine [Mass/Vol] 1.26 mg/dL Normal 0.64-1.[address] [facility] Comment on above: Performed By: #### C BC, PT, PTT, BMP #### [facility] [address] [place] [address] Creatinine Clr Calc Pharmacy 44.26 [facility] Comment on above: Result Comment: PERF ORMED BY: [place] [address] PATHOLOGIST PARAPROFESSIONAL AIDE TEACHER FAVIO CANAS M.D. Performed By: #### C BC, PT, PTT, BMP #### [address] Estimated GFR ( Marzena > 60 [facility] Comment on above: Result Comment: GFR estimated reference range: According to KDOQI guidelines, <60 ml/min/1.73m2 is sufficient to diagnose a patient with chronic kidney disease. Performed By: #### C BC, PT, PTT, BMP #### [facility] [address] [place] [address] Estimated GFR (Non- Am 54 [facility] Comment on above: Performed By: #### C BC, PT, PTT, BMP #### [address] Glucose [Mass/Vol] 105 mg/dL High 70-100 [facility] Comment on above: Result Comment: [facility] Glucose Reference Range is dependent on time and content of last meal. Glucose of more than 200 mg/dL in a nonstressed, ambulatory subject supports the diagnosis of Diabetes Mellitus. ADA recommended reference range Performed By: #### C BC, PT, PTT, BMP #### [facility] [address] [place] [address] Potassium [Moles/Vol] 4.2 mmol/L Normal 3.5-5.[address] [facility] Comment on above: Performed By: #### C BC, PT, PTT, BMP #### [facility] [address] Sodium [Moles/Vol] 137 mmol/L Normal 136-146 [facility] Comment on above: Performed By: #### C BC, PT, PTT, BMP #### [facility] [address] Urea nitrogen [Mass/Vol] 22 mg/dL Normal 9-[address] [facility] Comment on above: Performed By: #### C BC, PT, PTT, BMP #### [facility] [address] Coagulation Profileon 2021 aPTT Coag (Bld) [Time] 29.6 s Normal 25.1-36.[address] [facility] Comment on above: Result Comment: PERF ORMED BY: [place] [address] PATHOLOGIST PARAPROFESSIONAL AIDE TEACHER FAVIO CANAS M.D. Performed By: #### C BC, PT, PTT, BMP #### [address] INR Coag (PPP) [Relative time] 1.1 {INR} Normal [facility] Comment on above: Result Comment: INR [...] #### C BC, PT, PTT, BMP #### [facility] [address] [place] [address] PT Coag (PPP) [Time] 12.2 s Normal 9.0-12.[address] [facility] Comment on above: Performed By: #### C BC, PT, PTT, BMP #### [address] Complete Blood Count Auto Di ffon 07-19-2021 Basophils (Bld) [#/Vol] 0.1 10*3/uL Normal 0.0-0.[address] [facility] Comment on above: Result Comment: PERF ORMED BY: [address] [place] [address] PATHOLOGIST PARAPROFESSIONAL AIDE TEACHER FAVIO CANAS M.D. Performed By: #### C BC, PT, PTT, BMP #### [address] Basophils/100 WBC (Bld) 0.9 % Normal . [facility] Comment on above: Performed By: #### C BC, PT, PTT, BMP #### [address] Eosinophils (Bld) [#/Vol] 0.4 10*3/uL Normal 0.0-0.[address] [facility] Comment on above: Performed By: #### C BC, PT, PTT, BMP #### [address] Eosinophils/100 WBC (Bld) 7.6 % Normal . [facility] Comment on above: Performed By: #### C BC, PT, PTT, BMP #### [address] Erythrocyte distribution width (RBC) [Ratio] 14.5 % Normal 12.0-14.[address] [facility] Comment on above: Performed By: #### C BC, PT, PTT, BMP #### [address] Hematocrit (Bld) [Volume fraction] 37.6 % Low 38.8-50.[address] [facility] Comment on above: Performed By: #### C BC, PT, PTT, BMP #### [address] Hemoglobin (Bld) [Mass/Vol] 13.3 g/dL Normal 13.0-17.[address] [facility] Comment on above: Performed By: #### C BC, PT, PTT, BMP #### [address] Lymphocytes (Bld) [#/Vol] 1.0 10*3/uL Normal 1.00-4.[address] [facility] Comment on above: Performed By: #### C BC, PT, PTT, BMP #### [facility] [address] [place] [address] [place] Lymphocytes/100 WBC (Bld) 17.4 % Normal . [facility] Comment on above: Performed By: #### C BC, PT, PTT, BMP #### [facility] [address] MCH (RBC) [Entitic mass] 30.1 pg Normal 27.5-35.[address] [facility] Comment on above: Performed By: #### C BC, PT, PTT, BMP #### [facility] [address] MCV (RBC) [Entitic vol] 84.9 fL Normal 83.5-[address] [facility] Comment on above: Performed By: #### C BC, PT, PTT, BMP #### [facility] [address] Mean Corpuscular HGB Conc 35.4 g/dL Normal 32.5-35.[address] [facility] Comment on above: Performed By: #### C BC, PT, PTT, BMP #### [facility] [address] [place] [address] [place] Monocytes (Bld) [#/Vol] 0.5 10*3/uL Normal 0.0-0.[address] [facility] Comment on above: Performed By: #### C BC, PT, PTT, BMP #### [facility] [address] [place] [address] [place] Monocytes/100 WBC (Bld) 9.6 % Normal . [facility] Comment on above: Performed By: #### C BC, PT, PTT, BMP #### [facility] [address] [place] [address] [place] Neutrophils (Bld) [#/Vol] 3.5 10*3/uL Normal 1.8-7.[address] [facility] Comment on above: Performed By: #### C BC, PT, PTT, BMP #### [facility] [address] [place] [address] [place] Neutrophils/100 WBC (Bld) 64.5 % Normal . [facility] Comment on above: Performed By: #### C BC, PT, PTT, BMP #### [facility] [address] Nucleated RBC/100 WBC (Bld) [Ratio] 0.0 % Normal 0-0.[address] [facility] Comment on above: Performed By: #### C BC, PT, PTT, BMP #### [facility] [address] Platelet mean volume (Bld) [Entitic vol] 8.2 fL Normal 6.6-10.[address] [facility] Comment on above: Performed By: #### C BC, PT, PTT, BMP #### [address] Platelets (Bld) [#/Vol] 119 10*3/uL Low 150-[address] [facility] Comment on above: Performed By: #### C BC, PT, PTT, BMP #### [address] RBC (Bld) [#/Vol] 4.43 10*6/uL Normal 3.90-5.60 [facility] Comment on above: Performed By: #### C BC, PT, PTT, BMP #### [address] WBC (Bld) [#/Vol] 5.5 10*3/uL Normal 4.5-11.0 [facility] Comment on above: Performed By: #### C BC, PT, PTT, BMP #### [address] ABO/Rh Retypeon 07-18-2021 ABO/RH Recheck Result Positive Normal [facility] Comment on above: Result Comment: PERF ORMED BY: [place] [address] PATHOLOGIST PARAPROFESSIONAL AIDE TEACHER FAVIO CANAS M.D. Type and Screenon 07-18-2021 ABO and Rh group Nom (Bld) Blood group O Rh(D) positive Normal [facility] Comment on above: Order Comment: Comme nt FOR SURGERY 07/19 Basic Metabolic Panelon 05-0 Calcium [Mass/Vol] 8.8 mg/dL Normal 8.2-10.2 [facility] Comment on above: Performed By: #### C BC, PT, PTT, BMP #### [address] Chloride [Moles/Vol] 102 mmol/L Normal 95-[address] [facility] Comment on above: Performed By: #### C BC, PT, PTT, BMP #### [address] CO2 [Moles/Vol] 23.7 mmol/L Normal 22.0-30.0 [facility] Comment on above: Performed By: #### C BC, PT, PTT, BMP #### [address] Creatinine [Mass/Vol] 1.33 mg/dL High 0.64-1.[address] [facility] Comment on above: Performed By: #### C BC, PT, PTT, BMP #### [address] Creatinine Clr Calc Pharmacy 45.37 [facility] Comment on above: Result Comment: PERF ORMED BY: [place] [address] PATHOLOGIST PARAPROFESSIONAL AIDE TEACHER FAVIO CANAS M.D. Performed By: #### C BC, PT, PTT, BMP #### [address] Estimated GFR ( Marzena > 60 [facility] Comment on above: Result Comment: GFR estimated reference range: According to KDOQI guidelines, <60 ml/min/1.73m2 is sufficient to diagnose a patient with chronic kidney disease. Performed By: #### C BC, PT, PTT, BMP #### [address] Estimated GFR (Non- Am 51 [facility] Comment on above: Performed By: #### C BC, PT, PTT, BMP #### [facility] [address] Glucose [Mass/Vol] 98 mg/dL Normal 70-100 [facility] Comment on above: Result Comment: [facility] Glucose Reference Range is dependent on time and content of last meal. Glucose of more than 200 mg/dL in a nonstressed, ambulatory subject supports the diagnosis of Diabetes Mellitus. ADA recommended reference range Performed By: #### C BC, PT, PTT, BMP #### [facility] [address] Potassium [Moles/Vol] 4.2 mmol/L Normal 3.5-5.[address] [facility] Comment on above: Performed By: #### C BC, PT, PTT, BMP #### [facility] [address] Sodium [Moles/Vol] 136 mmol/L Normal 136-146 [facility] Comment on above: Performed By: #### C BC, PT, PTT, BMP #### [address] Urea nitrogen [Mass/Vol] 25 mg/dL High 9-[address] [facility] Comment on above: Performed By: #### C BC, PT, PTT, BMP #### [address] head/brain wo conon 07-16 CT head/brain wo con [facility] [place] [address] [place] [address] CT Scan Report Signed Patient: Tammi Patel MR#: [id number] : 1935 Acct:[id number] Age/Sex: 85 / M ADM Date: 07/15/21 Loc: 3T Room: [address] [place] [address] Type: ADM INOo Attending Dr: Jose Barber [...] Aleks Paredes M.D.07/16/2021 9:22 AM Dictation Location: [place] [address] Transcribed By: [facility] 07/16/21921 Dictated By: Aleks Paredes DO 07/16/21916 Signed By: 07/16/[address] [facility] Basic Metabolic Panelon 05 Calcium [Mass/Vol] 9.1 mg/dL Normal 8.2-10.2 [facility] Comment on above: Performed By: #### C BC, PT, PTT, BMP #### [facility] [address] [place] [address] [place] Chloride [Moles/Vol] 103 mmol/L Normal 95-[address] [facility] Comment on above: Performed By: #### C BC, PT, PTT, BMP #### [facility] [address] [place] [address] [place] CO2 [Moles/Vol] 25.7 mmol/L Normal 22.0-30.0 [facility] Comment on above: Performed By: #### C BC, PT, PTT, BMP #### [facility] [address] [id number] [place] Creatinine [Mass/Vol] 1.40 mg/dL High 0.64-1.[address] [facility] Comment on above: Performed By: #### C BC, PT, PTT, BMP #### [facility] [address] [place] [address] Creatinine Clr Calc Pharmacy 43.04 [facility] Comment on above: Result Comment: PERF ORMED BY: [place] [address] PATHOLOGIST PARAPROFESSIONAL AIDE TEACHER FAVIO CANAS M.D. Performed By: #### C BC, PT, PTT, BMP #### [facility] [address] Estimated GFR ( Marzena 58 [facility] Comment on above: Result Comment: GFR estimated reference range: According to KDOQI guidelines, <60 ml/min/1.73m2 is sufficient to diagnose a patient with chronic kidney disease. Performed By: #### C BC, PT, PTT, BMP #### [facility] [address] [place] [address] Estimated GFR (Non- Am 48 [facility] Comment on above: Performed By: #### C BC, PT, PTT, BMP #### [address] Glucose [Mass/Vol] 119 mg/dL High 70-100 [facility] Comment on above: Result Comment: [place] Glucose Reference Range is dependent on time and content of last meal. Glucose of more than 200 mg/dL in a nonstressed, ambulatory subject supports the diagnosis of Diabetes Mellitus. ADA recommended reference range Performed By: #### C BC, PT, PTT, BMP #### [facility] [address] [place] [address] Potassium [Moles/Vol] 4.1 mmol/L Normal 3.5-5.[address] [facility] Comment on above: Performed By: #### C BC, PT, PTT, BMP #### [facility] [address] Sodium [Moles/Vol] 139 mmol/L Normal 136-146 [facility] Comment on above: Performed By: #### C BC, PT, PTT, BMP #### [facility] [address] Urea nitrogen [Mass/Vol] 24 mg/dL High 12-[address] [facility] Comment on above: Performed By: #### C BC, PT, PTT, BMP #### [facility] [address] COVID-19 Antigenon 2 COVID-19 [facility] [...] developed and its performance characteristic determined by [facility] and validated at [facility]. This test has not been FDA [...] for SARS Antigen by TREY PERFORMED BY: [facility] [address] [place] [id number] PATHOLOGIST PARAPROFESSIONAL AIDE TEACHER FAVIO CANAS M.D. Normal [facility] Comment on above: Performed By: #### C BC, PT, PTT, BMP #### [facility] [address] [place] [id number] [facility] COVID-19 [facility] 07-15-2021 SARS-CoV-2 (COVID-19) RNA RUIZ+probe Ql (Unsp spec) Negative Normal Negative [facility] Comment on above: Order Comment: Healt hcare Worker?: N Result Comment: Testing for SARS-CoV-2 by RT-PCR This test was developed and its performance characteristics determined by [employer] and validated at the [facility]. This test has not been FDA [...] is terminated or revoked sooner. PERFORMED BY: [address] [address] PATHOLOGIST PARAPROFESSIONAL AIDE TEACHER FAVIO CANAS M.D. Performed By: #### C BC, PT, PTT, BMP #### [facility] [address] [place] [id number] [facility] CT head/brain wo [facility] 07-15 CT head/brain wo [facility] [address] [address] [address] Scan Report Signed Patient: Tammi Patel MR#: [id number] : 1935 Acct:[id number] Age/Sex: 85 / M ADM Date: 07/15/21 Loc: CT Room: Type: [facility] Attending Dr: Dixie Carroll PA-C Ordering [...] Jericho Esparza M.D.07/15/2021 1:43 PM Dictation Location: [place] [address] Transcribed By: RUBEN 07/15/21 1343 Dictated By: Jericho Esparza II, MD 07/15/21 1339 Signed By: 07/15/21 [address] [facility] Complete Blood Count Auto Di ffon 07-15-2021 Basophils (Bld) [#/Vol] 0.1 10*3/uL Normal 0.0-0.[address] [facility] Comment on above: Result Comment: PERF ORMED BY: [place] [address] PATHOLOGIST PARAPROFESSIONAL AIDE TEACHER FAVIO CANAS M.D. Performed By: #### C BC, PT, PTT, BMP #### [address] Basophils/100 WBC (Bld) 1.9 % Normal . [facility] Comment on above: Performed By: #### C BC, PT, PTT, BMP #### [address] Eosinophils (Bld) [#/Vol] 0.3 10*3/uL Normal 0.0-0.[address] [facility] Comment on above: Performed By: #### C BC, PT, PTT, BMP #### [address] Eosinophils/100 WBC (Bld) 5.4 % Normal . [facility] Comment on above: Performed By: #### C BC, PT, PTT, BMP #### [facility] [address] [place] [address] Erythrocyte distribution width (RBC) [Ratio] 14.3 % Normal 12.0-14.[address] [facility] Comment on above: Performed By: #### C BC, PT, PTT, BMP #### [facility] [address] [place] [address] Hematocrit (Bld) [Volume fraction] 37.0 % Low 38.8-50.[address] [facility] Comment on above: Performed By: #### C BC, PT, PTT, BMP #### [facility] [address] [place] [address] Hemoglobin (Bld) [Mass/Vol] 12.9 g/dL Low 13.0-17.[address] [facility] Comment on above: Performed By: #### C BC, PT, PTT, BMP #### [address] Lymphocytes (Bld) [#/Vol] 0.8 10*3/uL Low 1.00-4.[address] [facility] Comment on above: Performed By: #### C BC, PT, PTT, BMP #### [address] Lymphocytes/100 WBC (Bld) 15.0 % Normal . [facility] Comment on above: Performed By: #### C BC, PT, PTT, BMP #### [address] MCH (RBC) [Entitic mass] 30.0 pg Normal 27.5-35.[address] [facility] Comment on above: Performed By: #### C BC, PT, PTT, BMP #### [address] MCV (RBC) [Entitic vol] 85.7 fL Normal 83.5-[address] [facility] Comment on above: Performed By: #### C BC, PT, PTT, BMP #### [address] Mean Corpuscular HGB Conc 34.9 g/dL Normal 32.5-35.[address] [facility] Comment on above: Performed By: #### C BC, PT, PTT, BMP #### [address] Monocytes (Bld) [#/Vol] 0.4 10*3/uL Normal 0.0-0.[address] [facility] Comment on above: Performed By: #### C BC, PT, PTT, BMP #### [address] Monocytes/100 WBC (Bld) 7.3 % Normal . [facility] Comment on above: Performed By: #### C BC, PT, PTT, BMP #### [address] Neutrophils (Bld) [#/Vol] 3.9 10*3/uL Normal 1.8-7.[address] [facility] Comment on above: Performed By: #### C BC, PT, PTT, BMP #### [address] Neutrophils/100 WBC (Bld) 70.4 % Normal . [facility] Comment on above: Performed By: #### C BC, PT, PTT, BMP #### [address] Nucleated RBC/100 WBC (Bld) [Ratio] 0.0 % Normal 0-0.[address] [facility] Comment on above: Performed By: #### C BC, PT, PTT, BMP #### [address] Platelet mean volume (Bld) [Entitic vol] 8.1 fL Normal 6.6-10.[address] [facility] Comment on above: Performed By: #### C BC, PT, PTT, BMP #### [address] Platelets (Bld) [#/Vol] 135 10*3/uL Low 150-[address] [facility] Comment on above: Performed By: #### C BC, PT, PTT, BMP #### [address] RBC (Bld) [#/Vol] 4.32 10*6/uL Normal 3.90-5.60 [facility] Comment on above: Performed By: #### C BC, PT, PTT, BMP #### [address] WBC (Bld) [#/Vol] 5.6 10*3/uL Normal 4.5-11.0 [facility] Comment on above: Performed By: #### C BC, PT, PTT, BMP #### [address] ECG 12 lead ECGon 07-15-2021 ECG 12 lead ECG [facility] [place] [address] Electrocardiograph Report Signed Patient: Tammi Patel MR#: [id number] : 1935 Acct:[id number] Age/Sex: 85 / M ADM Date: 07/15/21 Loc: 4N Room: 7C8011-6 Type: DIS IN Attending Dr: Jose Barber [...] Signed By Omayra Horowitz MD 07/15/211909 Normal [facility] Partial Thromboplastin Timeo n 07-15-2021 aPTT Coag (Bld) [Time] 31.7 s Normal 25.1-36.[address] [facility] Comment on above: Result Comment: PERF ORMED BY: [place] [address] PATHOLOGIST PARAPROFESSIONAL AIDE TEACHER FAVIO CANAS M.D. Performed By: #### C BC, PT, PTT, BMP #### [address] Prothrombin Time INRon 07-15 INR Coag (PPP) [Relative time] 1.0 {INR} Normal [facility] Comment on above: Result Comment: INR [...] #### C BC, PT, PTT, BMP #### [address] PT Coag (PPP) [Time] 11.4 s Normal 9.0-12.[address] [facility] Comment on above: Performed By: #### C BC, PT, PTT, BMP #### [address] Leigh Ag Negativeon 07-16-19 Leigh Ag Negative Negative Normal Negative [facility] Comment on above: Result Comment: This is a duplicate Leigh SARS Antigen (TREY) result to be used for statistical tracking purpose only. PERFORMED BY: [place] [address] PATHOLOGIST PARAPROFESSIONAL AIDE TEACHER FAVIO CANAS M.D. Performed By: #### C BC, PT, PTT, BMP #### [address] XR chest 1V portableon 07-15 XR chest 1V portable [facility] Main [place] [address] [place] [address] XRay Report Signed Patient: Tammi Patel MR#: [id number] : 1935 Acct:[id number] Age/Sex: 85 / M ADM Date: 07/15/21 Loc: ER Room: Type: [facility] ER Attending Dr: Ordering Provider: Omayra [...] Jericho Esparza M.D.07/15/2021 2:43 PM Dictation Location: [place] [address] Transcribed By: RUBEN 07/15/211442 Dictated By: Jericho Esparza II, MD 07/15/211441 Signed By: 07/15/211442 [facility] Office Visit (Cardiology)on 04-09-2021 Follow-up visit Diagnoses/Problems Assessed Essential hypertension (401.9) (I10) Ventricular tachycardia, 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) TIA (transient ischemic attack) (435.9) (G45.9) 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) Palpitations (785.1) (R00.2) Overweight with body mass index (BMI) of 27 to 27.9 in adult (278.02,V85.23) (E66.3,Z68.27) Former smoker (V15.82) (Z87.891) Hyperlipidemia (272.4) (E78.5) Orders Essential hypertension, Palpitations, Ventricular tachycardia, paroxysmal Basic Metabolic Panel; Status:Active; Requested for:[id number]; Hyperlipidemia AST; Status:Active; Requested for:[id number]; Lipid Panel; Status:Active; Requested for:[id number]; Overweight with body mass index (BMI) of [...] 09Apr2021 11:40AM Heart Rate72, L Brachial Artery Gjdzxnoi373, LUE, Sitting Iwspzthhg37, LUE, Sitting Height5 ft 10 in Rspvbh266 lb BMI Flhkghwwyn54.12 kg/m2 BSA Calculated2.04 Tobacco Useb) No Fall Screeninga) No falls within the last year Physical Exam Constitutional: alert and in no acute distress. Eyes: no erythema, swelling or discharge from the eye . Neck: neck is supple, symme (more content not included)... Normal TouchELVPHD Tobacco Screening.on 022 Fall risk assessment a) No falls within the last year [facility] PsomasFMG 250 DO Work Phone: Tobacco use status [facility] b) No [facility] EnginesFort Yates HospitalAllin corporationy 250 DO Work Phone: [facility] CARDIAC STRESS/REST INJE CTIONon 08-31-2018 [facility] CARDIAC STRESS/REST INJECTION Patient Name: YI TAMMI STUDY: Performing facility: [facility], [address] [place] [address], [address], [place] [address] Door Captain: Pete DELA CRUZ NP PCP: Dr. Anthony MARTINEZ INDICATION: Abnormal EKG; HISTORY: Gender: M; Age: 82 y/o ; Height: 180.34 cm; Weight: 89.9183570 kg. Abnormal EKG; Palpitations; SOB; Fatigue; Family HX CAD; Quit smoking years ago. COMPARISON: Previous nuclear testing completed at [facility]. ACCESSION NUMBER(S): [id number]; [id number]; [id number] ORDERING CLINICIAN: LINDA HOROWITZ NP TECHNIQUE: ONE [...] 43%. Electronically signed by: NEO MATHEW MD [facility] CNOVSPon 09-02-2017 CNOVSP Visit (SP) Office (HEMACL) TAMMI HERRMANN ([id number]) 1935 MDate Time Provider Department09/02/17 1:00 PM DONOVAN CASTORENA During your visit today, we recorded the following information about you: Temperature Pulse Respiration Blood pressure 97.6 degrees 70/minute 18/minute 121/60 Weight Height 86.7 kg 1.753 Corky Cox RomeosilvestreDO cecil 09/17/2017 9:27 AM SignedPATIENT NAME: Tammi Bustamante: [id number] PHYSICIAN: Ben Jiménez MD417 [facility] [id number] CARE PHYSICIAN: Patric Martinez MDOTHER PHYSICIANS:CHIEF COMPLAINT: [...] 09/02/17-COMP METABOLIC PANEL-CBC + DIFF (FOR REMOTE [facility] USE)-PROTEIN ELECTROPHORESIS W/INTERP-MONOCLONAL PROT BLD W/INTERP-KAPPA/PLAZA,FREE,SER Return if symptoms worsen or fail to improve.he will follow-up as needed only.His platelets are very minimally below normallimit and he has no symptoms. He knows to call me if he has any petechial rashor bleeding issues. Certainly I am more than willing to see him if his otherberger hospitalcare practitioners think this is necessary. HPI: 81 year old male with past medical history significant for chronicnephrolithiasis, benign prostatic hyperplasia, essential hypertension, TIA ( onPlavix), who [facility] [place] [facility] apparently was scheduled for another one [...] nothing new or out of the ordinary. Izz985 today No more problems with kidney stones.September [...] 1 tablet by mouth once daily.Vit C-Vit N-Ztstwe-Fkm-OM-3 (OCUVITE) 166-88-6-150 vb-yihw-fo-mg cap Take bymouth once daily.tamsulosin ER (FLOMAX) [...] to palpation. No flank tenderness.Rod Castorena D.O.Medical OncologistWestern Reserve Hospital Cancer [place], [place]Referring Provider: BEN JIMÉNEZ [[id number]]Allergies As of Date: 09/02/2017(No Known Allergies)Date Reviewed: 09/02/2017Reviewed by: Amy Horowitz - Fully AssessedReason for Visit: Thrombocytopenia [603] Cmt: follow upPrimary Visit Diagnosis:Thrombocytopenia (HCC) [D69.6]Order(s):COMP METABOLIC PANEL [SQCMP] Order #: [id number] FUTURE CBC + DIFF (FOR REMOTE [facility] USE) [SQRCBCDF] Order #: [id number] FUTURE PROTEIN ELECTROPHORESIS W/INTERP [SQSEPG] Order #: [id number] FUTURE MONOCLONAL PROT BLD W/INTERP [SQMPASRM] Order #: [id number] FUTURE KAPPA/PLAZA,FREE,SER [SQKLFRS] Order #: [id number] FUTUREDisposition: Return if symptoms worsen or fail [...] by DONOVAN CASTORENA DO on 09/17/17 Normal [facility] Comp Metabolic Panelon 09-02 Alanine aminotransferase (ALT) 14 U/L Normal 10-54 [facility] Comment on above: Performed By: #### C MP, KLFRS, SEPG, MPASRM ####[facility] [place] [phone] Albumin 4.2 g/dL Normal 3.9-4.9 [facility] Comment on above: Performed By: #### C MP, KLFRS, SEPG, MPASRM ####[facility] [place] [phone] Alkaline phosphatase (ALP) 57 U/L Normal 36-108 [facility] Comment on above: Performed By: #### C MP, KLFRS, SEPG, MPASRM ####[place] [address] [address] [place] [phone] Anion gap 16 mmol/L Normal 9-18 [facility] Comment on above: Performed By: #### C MP, KLFRS, SEPG, MPASRM ####[place] [address] [address] [place] [phone] Aspartate aminotransferase (AST) 20 U/L Normal 14-40 [facility] Comment on above: Performed By: #### C MP, KLFRS, SEPG, MPASRM ####[place] [address] [address] [place] [phone] Bilirubin (total) 0.9 mg/dL Normal 0.2-1.3 [facility] Comment on above: Performed By: #### C MP, KLFRS, SEPG, MPASRM ####[facility] [place] [phone] Calcium 9.5 mg/dL Normal 8.5-10.2 [facility] Comment on above: Performed By: #### C MP, KLFRS, SEPG, MPASRM ####[facility] [place] [phone] Chloride 100 mmol/L Normal 97-105 [facility] Comment on above: Performed By: #### C MP, KLFRS, SEPG, MPASRM ####[facility] [address] AveCBoise, [place] [phone] CO2 22 mmol/L Normal 22-30 [facility] Comment on above: Performed By: #### C MP, KLFRS, SEPG, MPASRM ####[facility]Oxford, [place] [phone] Creatinine 1.31 mg/dL High 0.73-1.22 [facility] Comment on above: Performed By: #### C MP, KLFRS, SEPG, MPASRM ####[facility] [place], [place] [phone] eGFR (non-black) 53 . Normal [facility] Comment on above: Result Comment: eGFR [...] MP, KLFRS, SEPG, MPASRM ####[facility] [address] AvOxford, [place] [phone] eGFR (non-black) mL/min/{1.73_m2} Normal [facility] Comment on above: Performed By: #### C MP, KLFRS, SEPG, MPASRM ####[facility], [place] [phone] Glucose mass conc 159 mg/dL High 74-99 [facility] Comment on above: Result Comment: The [place] Diabetes [employer] (ADA) provides guidance for cutoff [...] Standards of Medical Care in Diabetes 2016, [place] [employer]. Diabetes Care. 2016.39(Suppl 1). Performed By: #### C MP, KLFRS, SEPG, MPASRM ####[place] [phone] Potassium molar conc 5.0 mmol/L Normal 3.7-5.1 [facility] Comment on above: Performed By: #### C MP, KLFRS, SEPG, MPASRM ####[address] [phone] Protein 6.3 g/dL Normal 6.3-8.0 [facility] Comment on above: Performed By: #### C MP, KLFRS, SEPG, MPASRM ####[place] [address] AvShannon [place] [phone] Sodium 138 mmol/L Normal 136-144 [facility] Comment on above: Performed By: #### C MP, KLFRS, SEPG, MPASRM ####[facility] AvOxford, [place] [phone] Urea nitrogen 18 mg/dL Normal 9-24 [facility] Comment on above: Performed By: #### C MP, KLFRS, SEPG, MPASRM ####[place] [address] [place], [place] [phone] Laona/Plaza,Free,Seron 2017 K/L Ratio, Serum 2.09 High 0.26-1.65 [facility] Comment on above: Performed By: #### C MP, KLFRS, SEPG, MPASRM ####[facility] [address]mtaf[address] AveCleveland, [place] [phone] Laona, Free, Serum 24.7 mg/L High 3.30-19.40 [facility] Comment on above: Result Comment: Rare ly, increased serum free light chains values may not be detected due to antigen excess phenomenon. Results should always be correlated with other laboratory results and clinical findings. Performed By: #### C MP, KLFRS, SEPG, MPASRM ####[facility] AveClevelandJohnson [place], [place] [phone] Lambda, Free, Serum 11.8 mg/L Normal 5.7-26.3 [facility] Comment on above: Result Comment: Rare ly, increased serum free light chains values may not be detected due to antigen excess phenomenon. Results should always be correlated with other laboratory results and clinical findings. Performed By: #### C MP, KLFRS, SEPG, MPASRM ####[facility]CBoise, [place] [phone] Monoclonl Protein,Blon 09-02 MPA Chinmay/Ledezma Ratio 1.75 Normal 1-3 [facility] Comment on above: Performed By: #### C MP, KLFRS, SEPG, MPASRM ####[facility]CBo[address], [place] [phone] MPA Result No M protein is identified. Normal No M protein is identified . [facility] Comment on above: Performed By: #### C MP, KLFRS, SEPG, MPASRM ####[facility] [address] AveClevelandJohnson City, [place] [phone] MPA Serum IgA 164 mg/dL Normal 78-391 [facility] Comment on above: Performed By: #### C MP, KLFRS, SEPG, MPASRM ####[facility] [address] AveClevelandJohnson [place], [place] [phone] MPA Serum IgG 602 mg/dL Low 717-1411 [facility] Comment on above: Performed By: #### C MP, KLFRS, SEPG, MPASRM ####[facility] [address]CJonathan [place] [phone] MPA Serum IgM 65 mg/dL Normal 53-334 [facility] Comment on above: Performed By: #### C MP, KLFRS, SEPG, MPASRM ####[address]annon Ville [phone] Serum Laona 498 mg/dL Low 534-1267 [facility] Comment on above: Performed By: #### C MP, KLFRS, SEPG, MPASRM ####[place] [phone] Serum Lambda 285 mg/dL Normal 253-653 [facility] Comment on above: Performed By: #### C MP, KLFRS, SEPG, MPASRM ####[place] [phone] Staff Review Reviewed by Aquilino Hendricks MD ([id number]) Normal [facility] Comment on above: Performed By: #### C MP, KLFRS, SEPG, MPASRM ####[address] [phone] PROGRESSon 09-02-2017 PROGRESS HNO ID: [id number] thor: Donovan Aquino: (none)Author Type: PhysicianType: Progress NotesFiled: 09/17/2017 9:27 AMNote Text:PATIENT NAME: Tammi Bustamante: [id number] PHYSICIAN: Ben Jiménez MD[address] [facility] [place] [address]NFYVTYM CARE PHYSICIAN: Patric Martinez MDOTHER PHYSICIANS:CHIEF COMPLAINT: [...] 09/02/17-COMP METABOLIC PANEL-CBC + DIFF (FOR REMOTE [facility] USE)-PROTEIN ELECTROPHORESIS W/INTERP-MONOCLONAL PROT BLD W/INTERP-KAPPA/PLAZA,FREE,SER [...] 1 tablet by mouth once daily.Vit C-Vit N-Zikuzj-Mtl-OM-3 (OCUVITE) 951-05-6-150 pr-xkud-qv-mg cap Takeby mouth once daily.tamsulosin ER (FLOMAX) [...] to palpation. No flank tenderness.Rod Castorena D.O.Medical OncologistHebron, [place] Normal [facility] Protein Electrophor.on 09-02 Albumin 3.74 g/dL Normal 3.37-4.23 [facility] Comment on above: Performed By: #### C TOMY BAR, SEPG, MPASRM ####[facility] [address] AveClevelandJohnson City, [place] [phone] Alpha 1 Globulin 0.22 gm/dL Normal 0.18-0.31 [facility] Comment on above: Performed By: #### C MP, KLFRS, SEPG, MPASRM ####[facility] [place] [phone] Alpha 2 Globulin 0.72 gm/dL Normal 0.52-0.97 [facility] Comment on above: Performed By: #### C MP, KLFRS, SEPG, MPASRM ####[facility] [place] [phone] Beta Globulin 0.89 gm/dL Normal 0.84-1.36 [facility] Comment on above: Performed By: #### C MP, KLFRS, SEPG, MPASRM ####[facility] [place] [phone] Gamma Globulin 0.73 gm/dL Normal 0.70-1.44 [facility] Comment on above: Performed By: #### C MP, KLFRS, SEPG, MPASRM ####[facility] [place] [phone] Interpretation SEE COMMENT Normal [facility] Comment on above: Result Comment: No d efinitive M protein is identified on protein electrophoresis. Performed By: #### C MP, KLFRS, SEPG, MPASRM ####[facility] [place] [phone] M Protein Location N/A Normal [facility] Comment on above: Performed By: #### C MP, KLFRS, SEPG, MPASRM ####[facility] [place] [phone] M Dhiraj Concentratn 0.00 gm/dL Normal 0.00 [facility] Comment on above: Performed By: #### C MP, KLFRS, SEPG, MPASRM ####[facility] [address]hp[address] AvOxford, [place] [phone] SPE Staff Review Reviewed by Aquilino Hendricks MD ([id number]) Normal [facility] Comment on above: Performed By: #### C MP, KLFRS, SEPG, MPASRM ####[facility] [place], [place] [phone] Total Protein, SPE 6.3 g/dL Normal 6.0-8.4 [facility] Comment on above: Performed By: #### C MP, KLFRS, SEPG, MPASRM ####[facility] [place], [place] [phone] Remote CBCDIF (for [facility] use o nly)on 09-02-2017 Abs Baso 0.03 k/uL Normal 0.00-0.10 [facility] Abs Pleasants 0.49 k/uL Normal 0.00-0.86 [facility] Abs Neut 4.04 k/uL Normal 1.45-7.50 [facility] Basophils/100 WBC Auto (Bld) 0.5 % Normal [facility] Eosinophils 0.36 10*3/uL Normal 0.00-0.45 [facility] Eosinophils/100 leukocytes 5.8 % Normal [facility] Erythrocyte distribution width Auto Ratio (RBC) 13.4 % Normal 11.5-15.0 [facility] Erythrocytes (RBC) 4.86 10*6/uL Normal 4.20-6.00 [facility] Hematocrit (HCT) 42.4 % Normal 39.0-51.0 [facility] Hemoglobin mass conc (Bld) 14.9 g/dL Normal 13.0-17.0 [facility] Lymphocytes 1.24 10*3/uL Normal 1.00-4.00 [facility] Lymphocytes/100 leukocytes 20.1 % Normal [facility] MCH 30.7 pG Normal 26.0-34.0 [facility] MCHC mass conc (RBC) 35.1 g/dL Normal 30.5-36.0 [facility] MCV 87.2 fL Normal 80.0-100.0 [facility] Monocytes/100 leukocytes 8.0 % Normal [facility] Neutrophils/100 WBC Auto (Bld) 65.6 % Normal [facility] Platelet mean volume (PMV) 10.2 fL Normal 9.0-12.7 [facility] Platelets 143 10*3/uL Low 150-400 [facility] WBC (Leukocytes) 6.16 10*3/uL Normal 3.70-11.00 [facility] Vital Signs Date Time Vital Sign Value Performing Clinician Facility 05-18-2023 10:47-0500 Blood Pressure Location Jourdan URBINA [facility] 05-18-2023 10:47-0500 Diastolic blood pressure 80 mm[Hg] Jourdan URBINA [facility] 05-18-2023 10:47-0500 Heart rate 68 /min Jourdan URBINA [facility] 05-18-2023 10:47-0500 Respiratory rate 16 /min Jourdan URBINA [facility] 05-18-2023 10:47-0500 Systolic blood pressure 127 mm[Hg] Jourdan URBINA [facility] 05-08-2023 13:30-0500 Body height 180.34 cm [facility] 05-08-2023 13:30-0500 Body mass index (BMI) [Ratio] 25.4 kg/m2 [facility] 05-08-2023 13:30-0500 Body weight 82.55 kg [facility] 05-08-2023 13:30-0500 Diastolic blood pressure 80 mm[Hg] [facility] 05-08-2023 13:30-0500 Heart rate 80 /min [facility] 05-08-2023 13:30-0500 Respiratory rate 12 /min [facility] 05-08-2023 13:30-0500 Systolic blood pressure 121 mm[Hg] [facility] 04-30-2023 15:12-0500 Body height 180.34 cm [facility] 04-30-2023 15:12-0500 Body mass index (BMI) [Ratio] 25.8 kg/m2 [facility] 04-30-2023 15:12-0500 Body temperature 96.4 [degF] [facility] 04-30-2023 15:12-0500 Body weight 83.97 kg [facility] 04-30-2023 15:12-0500 Diastolic blood pressure 70 mm[Hg] [facility] 04-30-2023 15:12-0500 Heart rate 98 /min [facility] 04-30-2023 15:12-0500 Respiratory rate 18 /min [facility] 04-30-2023 15:12-0500 SaO2% (BldA) [Mass fraction] 97 % [facility] 04-30-2023 15:12-0500 Systolic blood pressure 120 mm[Hg] [facility] 02-16-2023 10:43-0500 Blood Pressure Location Jourdan URBINA [facility] 02-16-2023 10:43-0500 Diastolic blood pressure 60 mm[Hg] Jourdan URBINA [facility] 02-16-2023 10:43-0500 Heart rate 62 /min Jourdan URBINA [facility] 02-16-2023 10:43-0500 Respiratory rate 16 /min Jourdan URBINA [facility] 02-16-2023 10:43-0500 Systolic blood pressure 105 mm[Hg] Jourdan URBINA [facility] 02-12-2023 11:30-0500 Body height 180.34 cm Wilder Ball Other [facility] 02-12-2023 11:30-0500 Body mass index (BMI) [Ratio] 26.02 kg/m2 Wilder Ball Other [facility] [employer] Other 02-12-2023 11:30-0500 Body weight 84.64 kg Wilder Ball Other [facility] 02-12-2023 11:30-0500 Diastolic blood pressure 74 mm[Hg] Wilder Ball Other [facility] 02-12-2023 11:30-0500 Respiratory rate 12 /min Wilder Ball Other [facility] [employer] Other 02-12-2023 11:30-0500 Systolic blood pressure 119 mm[Hg] Wilder Ball Other [facility] 01-26-2023 09:18-0500 Body height 177.8 cm Kaiser Gómez MD Work Phone: [facility] 01-26-2023 09:18-0500 Body mass index (BMI) [Ratio] 26.69 kg/m2 Kaiser Gómez MD Work Phone: [facility] 01-26-2023 09:18-0500 Body weight 84.37 kg Kaiser Gómez MD Work Phone: [facility] 01-26-2023 09:18-0500 Diastolic blood pressure 86 mm[Hg] Kaiser Gómez MD Work Phone: [facility] 01-26-2023 09:18-0500 Heart rate 78 /min Kaiser Gómez MD Work Phone: [facility] 01-26-2023 09:18-0500 Systolic blood pressure 124 mm[Hg] Kaiser Gómez MD Work Phone: [facility] 11-13-2022 09:40-0400 Body height 180.34 cm Nabil Sonia Other [employer] Other 11-13-2022 09:40-0400 Body mass index (BMI) [Ratio] 26.3 kg/m2 Nabil Sonia Other [employer] Other 11-13-2022 09:40-0400 Body temperature 97.7 [degF] Nabil Sonia Other [employer] Other 11-13-2022 09:40-0400 Body weight 85.55 kg Nabil Sonia Other [employer] Other 11-13-2022 09:40-0400 Diastolic blood pressure 70 mm[Hg] Nabil Sonia Other [employer] Other 11-13-2022 09:40-0400 Respiratory rate 18 /min Nabil Sonia Other [employer] Other 11-13-2022 09:40-0400 SaO2% (BldA) [Mass fraction] 96 % Nabil Sonia Other [employer] Other 11-13-2022 09:40-0400 Systolic blood pressure 110 mm[Hg] Nabil Sonia Other [employer] Other 04-17-2022 11:00-0500 Body height 180.34 cm Nabil Sonia Other [employer] Other 04-17-2022 11:00-0500 Body mass index (BMI) [Ratio] 26.58 kg/m2 Nabil Sonia Other [employer] Other 04-17-2022 11:00-0500 Body temperature 96.5 [degF] Nabil Sonia Other [employer] Other 04-17-2022 11:00-0500 Body weight 86.46 kg Nabil Sonia Other [employer] Other 04-17-2022 11:00-0500 Diastolic blood pressure 71 mm[Hg] Nabil Sonia Other [employer] Other 04-17-2022 11:00-0500 Respiratory rate 18 /min Nabil Sonia Other [employer] Other 04-17-2022 11:00-0500 SaO2% (BldA) [Mass fraction] 97 % Nabil Sonia Other [employer] Other 04-17-2022 11:00-0500 Systolic blood pressure 131 mm[Hg] Nabil Sonia Other [employer] Other 01-15-2022 15:30-0400 Body height 177.8 cm Wilder Luna [employer] Phone: [facility] [employer] DO Work Phone: 01-15-2022 15:30-0400 Body mass index (BMI) [Ratio] 27.26 kg/m2 Wilder Luna [employer] Phone: [employer] [employer] DO Work Phone: 01-15-2022 15:30-0400 Body surface area Derived from formula 2.04 m2 Wildre Luna [employer] Phone: [employer] [employer] DO Work Phone: 01-15-2022 15:30-0400 Body weight 86.18 kg Wilder E Ball Work Phone: [facility] [employer] 250 DO Work Phone: 01-15-2022 15:30-0400 Diastolic blood pressure 60 mm[Hg] Wilder E Ball Work Phone: [facility] [employer] 250 DO Work Phone: 01-15-2022 15:30-0400 Heart rate 68 /min Wilder E Ball Work Phone: [facility] [employer] 250 DO Work Phone: 01-15-2022 15:30-0400 Systolic blood pressure 112 mm[Hg] Wilder E Ball Work Phone: [facility] [employer] 250 DO Work Phone: 2021 11:00-0400 Body height 180.34 cm Nabil Sonia Other [employer] Other 2021 11:00-0400 Body mass index (BMI) [Ratio] 26.11 kg/m2 Nabil Sonia Other [employer] Other 2021 11:00-0400 Body temperature 97.4 [degF] Nabil Sonia Other [employer] Other 2021 11:00-0400 Body weight 84.91 kg Nabil Sonia Other [employer] Other 2021 11:00-0400 Diastolic blood pressure 70 mm[Hg] Nabil Soina Other [employer] Other 2021 11:00-0400 Respiratory rate 18 /min Nabil Sonia Other [employer] Other 2021 11:00-0400 SaO2% (BldA) [Mass fraction] 97 % Nabil Sonia Other [employer] Other 2021 11:00-0400 Systolic blood pressure 110 mm[Hg] Nabil Sonia Other [employer] Other 07-29-2021 12:30-0400 Body height 180.34 cm Angel Cotton Other [employer] Other 07-29-2021 12:30-0400 Body mass index (BMI) [Ratio] 26.05 kg/m2 Angel Cotton Other [employer] Other 07-29-2021 12:30-0400 Body weight 84.73 kg Angel Elslopez Other [employer] Other 04-09-2021 11:40-0500 Body height 177.8 cm Wilder Luna [employer] Work Phone: [facility] [employer] DO Work Phone: 04-09-2021 11:40-0500 Body mass index (BMI) [Ratio] 27.12 kg/m2 Wilder Luna Ball Work Phone: [employer] DO Work Phone: 04-09-2021 11:40-0500 Body surface area Derived from formula 2.04 m2 Wilder Luna Ball Work Phone: [employer] DO Work Phone: 04-09-2021 11:40-0500 Body weight 85.73 kg Wilder Luna Ball Work Phone: [facility] DO Work Phone: 04-09-2021 11:40-0500 Diastolic blood pressure 70 mm[Hg] Wilder Sam Work Phone: [facility] DO Work Phone: 04-09-2021 11:40-0500 Heart rate 72 /min Wilder Luna Ball Work Phone: [facility] DO Work Phone: 04-09-2021 11:40-0500 Systolic blood pressure 122 mm[Hg] Wilder Sam Work Phone: [facility] DO Work Phone: Encounters Encounter Date Encounter Type Care Provider Facility Start: 11-23-2023 ambulatory Jourdan URBINA Facili ty:[facility] Start: 05-18-2023 End: 05-19-2023 ambulatory Jourdan URBINA Facility:[facility] Start: 05-18-2023 End: 05-18-2023 Patient encounter procedure Jourdan URBINA [facility] Start: 05-08-2023 End: 05-08-2023 ambulatory [facility] Work Phone: Start: 05-08-2023 End: 05-08-2023 Patient encounter procedure [facility] Physician [facility] Work Phone: Start: 04-30-2023 End: 04-30-2023 ambulatory [facility] Work Phone: Start: 04-30-2023 End: 04-30-2023 Patient encounter procedure [facility] Physician [facility] Juan C Work Phone: Start: 04-28-2023 End: 04-29-2023 ambulatory Jourdan URBINA [facility] Start: 04-28-2023 End: 04-28-2023 Patient encounter procedure Jourdan URBINA [facility] Start: 04-15-2023 End: 04-15-2023 ambulatory ASIA PALOMINO Not Available Start: 04-09-2023 End: 04-10-2023 ambulatory Priti X Diegozech Facility:[facility] Start: 04-09-2023 End: 04-09-2023 Patient encounter procedure Priti X Orzech [facility] Start: 04-06-2023 End: 04-07-2023 ambulatory Jourdan URBINA Facility:[id number] Start: 03-30-2023 End: 03-30-2023 ambulatory Wilder Sam Other [employer] Other Start: 03-30-2023 Telephone encounter Wilder Sam [facility] Start: 03-18-2023 End: 03-18-2023 ambulatory Nabil Sonia Other [employer] Other Start: 03-18-2023 Telephone encounter Nabil Sonia [facility] Start: 02-16-2023 End: 02-17-2023 ambulatory Jourdan URBINA Facility:[facility] Start: 02-16-2023 End: 02-16-2023 Patient encounter procedure Jourdan URBINA [facility] Start: 02-12-2023 End: 02-12-2023 ambulatory Wilder Sam Other [employer] Other Start: 02-12-2023 Patient encounter procedure Wilder Sam [facility] Start: 02-12-2023 End: 02-12-2023 Patient encounter procedure [facility] Work Phone: Start: 01-26-2023 End: 01-26-2023 Office outpatient visit 25 minutes Kaiser Gómez MD Work Phone: [facility] Comment on above: Mixed hyperlipidemia (Primary Dx); Ventricular tachycardia, paroxysmal (CMS/HCC); TIA (transient ischemic attack); History of right-sided carotid endarterectomy; Essential hypertension; Bilateral carotid artery stenosis Start: 11-13-2022 End: 11-13-2022 ambulatory Nabil Sonia Other [employer] Other Start: 11-13-2022 Office outpatient vi sit 25 minutes Nabil Sonia [facility] C Start: 09-09-2022 End: 09-09-2022 ambulatory Nabil Sonia Other [employer] Other Start: 09-09-2022 Telephone encounter Nabil Sonia [facility] Start: 07-16-2022 End: 07-17-[address] KAISER GÓMEZ Facility:[facility] Start: 04-29-2022 End: 04-29-2022 ambulatory Wilder Sam Other [employer] Other Start: 04-29-2022 Telephone encounter Wilder ZHENG [facility] Start: 04-17-2022 End: 04-17-2022 ambulatory Nabil Sonia Other [employer] Other Start: 04-17-2022 Office outpatient vi sit 15 minutes Nabil Sonia [facility] Start: 04-07-2022 End: 04-07-2022 ambulatory Wilder Sam Other [employer] Other Start: 04-07-2022 Telephone encounter Wilder Paredes [facility] Start: 04-02-2022 End: 04-02-2022 ambulatory Wilder Sam Other [employer] Other Start: 04-02-2022 Telephone encounter Wilder Paredes [facility] Start: 03-26-2022 End: 03-27-[address] DOCTOR RANKIN Facility:[facility] Start: 03-11-2022 End: 03-11-2022 ambulatory Conor Baer Other [employer] Other Start: 03-11-2022 Telephone encounter Conor Baer [facility] Start: 02-10-2022 Adult health examination Nabil Sonia Other [employer] Other Start: 01-15-2022 Office outpatient vi sit 15 minutes Wilder Sam Work Phone: [facility] 250 DO Work Phone: Start: 01-15-2022 ambulatory Wilder Sam Fa cility: Start: 01-10-2022 End: 01-11-[address] VANI RIDLEY Facility:[facility] Start: 12-21-2021 End: 12-21-2021 ambulatory ASIA ESPINAL Facility:[facility] Start: 10-30-2021 End: 10-31-[address] WILDER SAM Facility:[facility] Start: 2021 End: 2021 ambulatory Nabil Sonia Other [employer] Other Start: 2021 Office outpatient vi sit 25 minutes Nabil Sonia [facility] Start: 2021 Telephone encounter Nabil Sonia [facility] Start: 08-26-2021 End: 08-26-2021 ambulatory Angel Cotton Facility:[facility] Start: 08-01-2021 End: 08-02-[address] WILDER SAM Facility:[facility] Start: 07-29-2021 End: 07-29-2021 ambulatory Angel Cotton Other [employer] Other Start: 07-29-2021 Postop follow up vis it related to original px Angel Cotton [facility] Start: 07-15-2021 End: 07-24-2021 Evaluation and management of inpatient Jose Barber Facility:[facility] Start: 07-15-2021 End: 07-15-2021 ambulatory Dixie Carroll Facility:[facility] Start: 04-09-2021 Office outpatient vi sit 25 minutes Wilder Sam Work Phone: [facility] 250 DO Work Phone: Start: 04-09-2021 ambulatory Kaiser Gómez II Faci lity: Start: 09-02-2017 End: 09-17-2017 Ambulatory DONOVAN Cox CORRINA [facility] Hwang Procedures Date Procedure Procedure Detail Performing Clinician Start: 04-28-2023 Urodynamic studies Patr ayaka URBINA Start: 04-06-2023 Transurethral cystoscopy Jourdan URBINA Start: 07-18-2021 Antibody screen Angel Cotton Comment on above: Order Comment: Comme nt FOR SURGERY 07/19 Result Comment: PERF ORMED BY: [facility] [address] [place] [address] PATHOLOGIST PARAPROFESSIONAL AIDE TEACHER FAVIO CANAS M.D. Start: 02-08-2020 Extracorporeal shock [...] procedure 02/15/2024 9:40 AM EST Office Visit [facility] [address] [id number] Kaiser Gómez MD [address] [place] [address] 2, [facility] [address] [place] [address] [facility] Start: 01-21-2023 FUV, Provider: Kaiser Gómez, Status: Pen, Time: 1:30 PM FUV, Provider: Kaiser Gómez, Status: Pen, Time: 1:30 PM [facility] Work Phone: Start: 02-11-2022 COVID-19 Vaccine (4 - Pfizer series) COVID-19 Vaccine (4 - Pfizer series) [facility] Start: 01-15-2022 FUV, Provider: Kaiser Gómez, Status: Pen, Time: 3:10 PM FUV, Provider: Kaiser Gómez, Status: Pen, Time: 3:10 PM [facility] 250 DO Work Phone: Start: 09-18-1957 DTaP/Tdap/Td Vaccine s (1 - Tdap) DTaP/Tdap/Td Vaccines (1 - Tdap) [facility] Start: [birth year]-18-1953 Diabetes mellitus screening Diabetes Screening [facility] Start: 1935 Lipid panel Lipid Panel [facility] Start: 1935 Medicare Annual Wellness Visit Medicare Annual Wellness Visit (AWV) [facility] Renal function 2000 panel - Serum or Plasma [facility] Immunizations Immunization Date Immunization Notes Care Provider [facility] 12-17-2022 Flu vaccine, quadrivalent, high-dose, preservative free, age 65y+ (FLUZONE) Kaiser Gómez MD Work Phone: [facility] 12-17-2022 influenza virus vaccine, unspecified formulation Jourdan URBINA [facility] 12-17-2022 influenza, high dose seasonal, preservative-free Wilder Sam Other [employer] Other 12-17-2021 Fluzone High-Dose Quadrivalent 0.7 ML Intramuscular Suspension Prefilled Syringe Wilder Sam Work Phone: [facility] 12-17-2021 influenza virus vaccine, unspecified formulation Jourdan URBINA [facility] 12-17-2021 Pfizer COVID-19 Vac Bivalent 30 MCG/0.3ML Intramuscular Suspension Wilder Sam Work Phone: [facility] 11-04-2021 Prevnar 20 0.5 ML Intramuscular Suspension Prefilled Syringe Wilder Sam Work Phone: [facility] 07-05-2021 Comirnaty 30 MCG/0.3 ML Intramuscular Suspension Wilder Sam Work Phone: [facility] 07-05-2021 SARS-CoV-2 mRNA (oibyxaqvdsv-dgdy-qabjx se) vaccine Jourdan URBINA [facility] 12-17-2020 Pfizer-BioNTech COVID-19 Vacc 30 MCG/0.3ML Intramuscular Suspension Wilder Luna Cecy Work Phone: [facility] 12-05-2020 Fluzone High-Dose Quadrivalent 0.7 ML Intramuscular Suspension Prefilled Syringe Wilder Sam Work Phone: [facility] 12-05-2020 influenza virus vaccine, unspecified formulation Jourdan URBINA [facility] 05-06-2020 Pfizer-BioNTech COVID-19 Vacc 30 MCG/0.3ML Intramuscular Suspension Wilder Sam Work Phone: [facility] Comment on above: Result Comment: 2021: [id number] 05-05-2020 Pfizer Purple Cap SARS-CoV-2 Kaiser Gómez MD Work Phone: [facility] Work Phone: 04-06-2020 Pfizer-BioNTech COVID-19 Vacc 30 MCG/0.3ML Intramuscular Suspension Wilder Cheryl Sam Work Phone: [facility] Comment on above: Result Comment: 2021: [id number] 04-05-2020 Pfizer Purple Cap SARS-CoV-2 Kaiser Gómez MD Work Phone: [facility] Work Phone: 12-16-2019 influenza virus vaccine, unspecified formulation Jourdangm URBINA [facility] 12-16-2019 influenza, high dose seasonal, preservative-free Wilder E Ball Work Phone: [facility] 12-09-2019 influenza virus vaccine, unspecified formulation Jourdan URBINA [facility] 11-15-2019 influenza virus vaccine, unspecified formulation Jourdan URBINA [facility] 01-06-2019 zoster vaccine recombinant Kaiser Gómez MD Work Phone: [facility] Work Phone: 12-27-2018 influenza virus vaccine, unspecified formulation Jourdan URBINA [facility] 12-27-2018 influenza, seasonal, injectable Wilder E Ball Work Phone: [facility] 250 DO Work Phone: 12-14-2018 influenza virus vaccine, unspecified formulation Wilder E Ball Work Phone: [facility] 12-10-2018 influenza, high dose seasonal, preservative-free Kaiser Gómez MD Work Phone: [facility] Work Phone: 12-06-2018 influenza virus vaccine, unspecified formulation Jourdan URBINA [facility] 12-06-2018 influenza, high dose seasonal, preservative-free Wilder E Ball Work Phone: [facility] 250 DO Work Phone: 11-08-2018 zoster vaccine recombinant Wilder Cheryl Sam Work Phone: [place] [address] DO Work Phone: 12-14-2017 influenza virus vaccine, unspecified formulation Wilder Sam Work Phone: [place] [address] DO Work Phone: 12-09-2017 influenza virus vaccine, unspecified formulation Jourdan URBINA [facility] 12-09-2017 influenza, injectabl e, quadrivalent, preservative free Kaiser Gómez MD Work Phone: [facility] Work Phone: 12-23-2016 influenza virus vaccine, unspecified formulation Jourdangm URBINA [facility] 12-23-2016 influenza, high dose seasonal, preservative-free Wilder Sam Work Phone: [place] [address] DO Work Phone: 12-14-2016 influenza virus vaccine, unspecified formulation Wilder E Cecy Work Phone: [place] [address] DO Work Phone: 01-15-2016 influenza virus vaccine, unspecified formulation Wilder E Ball Work Phone: [place] [address] DO Work Phone: 01-15-2016 pneumococcal conjuga te vaccine, 13 valent Wilder Sam Work Phone: [place] [address] DO Work Phone: 12-26-2015 pneumococcal conjuga te vaccine, 13 valent Kaiser Gómez MD Work Phone: [facility] Work Phone: 01-08-2015 influenza virus vaccine, unspecified formulation Wilder Sam Work Phone: [place] [address] DO Work Phone: 12-20-2013 influenza virus vaccine, unspecified formulation Wilder Sam Work Phone: [place] [address] DO Work Phone: 10-30-2010 zoster vaccine, live Benjami reynaldo Sam Work Phone: [place] [address] DO Work Phone: 03-16-2010 pneumococcal polysaccharide vaccine, 23 valent Wilder Sam Work Phone: [place] [address] DO Work Phone: 03-16-2008 pneumococcal polysaccharide vaccine, 23 valent Wilder Sam Work Phone: [place] [address] DO Work Phone: pneumococcal Conjuga te, unspecified formulation; Translations: [Need for prophylactic vaccination against Streptococcus pneumoniae (pneumococcus)] Nabil Scott Other [facility] [employer] Other Payers Date Payer Category Payer Medicare [id number] 2022 Unknown 2021 Medicare [id number] 2021 Self-pay 2020 Unknown [id number] 1959 Medicare [id number] 1959 Private Health Insurance [id number] 1935 Unknown [id number] [id number] 1935 Unknown [id number] 1935 Unknown [id number] 2.16.840.1.577996.3.579.2.593 1935 Unknown [id number] 2.16.840.1.585779.3.579.2.593 1935 Unknown [id number] 2.16.840.1.313578.3.579.2.593 1935 Unknown [id number] 2.16.840.1.898990.3.579.2.593 1935 Unknown [id number] 2.16.840.1.603391.3.579.2.593 1935 Unknown [id number] 2.16.840.1.405635.3.579.2.593 1935 Unknown [id number] 2.16.840.1.019756.3.579.2.593 1935 Unknown [id number] 2.16.840.1.480309.3.579.2.1259 1935 Unknown [id number] 2.16.840.1.384526.3.579.2.727 1935 Unknown [id number] 2.16.840.1.540078.3.579.2.727 1935 Unknown [id number] 2.16.840.1.319493.3.579.2.727 1935 Unknown [id number] 2.16.840.1.527209.3.579.2.727 1935 Unknown [id number] 2.16.840.1.179402.3.579.2.727 1935 Unknown [id number] 2.16.840.1.709192.3.579.2.727 Medicare [id number] 2.16.840.1.866589.19 Unknown [id number] 2.16.840.1.397167.3.579.2.531 Unknown [id number] 2.16.840.1.764357.3.579.2.531 Unknown [id number] 2.16.840.1.319791.3.579.2.531 Unknown Regular Insurance [id number] Social History Date Type Detail Facility Start: 01-26-2023 No illicit drug use No illicit drug use [facility] DO Work Phone: Comment on above: Twice a week; 1 cup of coffee a da y; Start: 01-26-2023 Sex Assigned At F [facility] Start: 01-26-2023 End: 05-18-2023 Tobacco smoking status NHIS Ex-smoker [facility] Work Phone: History of tobacco use Current smoker [facility] Work Phone: History of tobacco use Cigarette Smoker [facility] Work Phone: Start: 01-26-2023 Tobacco use and exposure Smokeless tobacco non-user [facility] Work Phone: Start: 01-26-2023 Alcohol intake Lifetime non-d oumar (finding) [facility] Work Phone: Start: 1935 Sex Assigned At Not on file [facility] Work Phone: Start: 01-16-2023 End: 01-26-2023 Exposure to SARS-CoV-2 (event) Not sure [facility] Tobacco smoking status Never [facility] Start: 1935 Sex Assigned At Male F [facility] Medical Equipment Procedure Code Equipment Code Equipment Origin al Text Equipment Identifier Dates Cystoscopy, with ureteral calculus manipulation and stent placement Polymeric ureteral stent [id number] FDA Start: 11-19-2019 Cystoscopy, with ureteral calculus manipulation and stent placement Polymeric ureteral stent ()[id number] FDA Start: 11-19-2019 Craniotomy Craniofacial fixation plate, non-bioabsorbable ()[id number] FDA Start: 07-19-2021 Craniotomy Craniofacial fixation plate, non-bioabsorbable ()[id number] FDA Start: 07-19-2021 Craniotomy Craniofacial bon e screw, non-bioabsorbable, sterile ()[id number] [facility] Start: 07-19-2021 Functional Status Date Assessment Result Facility 05-18-2023 Functional Status N/A [facility] 04-09-2023 Functional Status N/A [facility] 02-16-2023 Functional Status N/A [facility] Clinical Notes 07-14-2021 to 05-18-2023 Note Date [...] urethra. Follow these instructions at home: Take lwhe-riv-gvxqpwk and prescription medicines only as told by [...] provider. Document Revised: 09/18/2021 Document Reviewed: 09/18/2021 [employer] Patient Education 2022 [employer] Follow Up Care 05/01/2023 14:20:13 With:CIARA SALAZAR, Jourdan Anderson, URL Address: [facility] [address] , [place] [address]- [phone] When:Within 6 Month(s) Comments:6 mo fu with PVR scan [facility] 05-01-2023 Note [id number]#[id number] [facility] 04-28-2023 Note [id number] [facility] 03-30-2023 Evaluation note Encounter Date Diagnosis Assessment Notes Mar, Primary hypertension (ICD-10 - I10) [facility] [employer] Other 01-03-2024 Evaluation note* Encounter Date Diagnosis Assessment Notes Treatment Notes Treatment Clinical Notes Mar, Vitamin D deficiency (ICD-10 - E55.9) [facility] [employer] Other 12-04-2023 Hospital Discharge instructions Patient Education [...] including vitamins, herbs, eye drops, creams, and rlln-btq-rdhguev medicines. Any problems you or family members [...] provider tells you to take them. Taking mdbm-mwy-scvokdv medicines, vitamins, herbs, and supplements. Tests You [...] Follow these instructions at home: Medicines Take oaac-sfu-ztjssya and prescription medicines only as told by [...] provider. Document Revised: 11/13/2021 Document Reviewed: 10/12/2020 [employer] Patient Education 2022 [employer] Follow Up Care 01/15/2022 10:12:17 With:CIARA SALAZAR, Jourdan Anderson, URL Address: [facility] [address] , [place] [address]- [phone] When: Unknown [facility] 12-04-2023 NoteUrology Cystoscopy Cystoscopy is a [...] including vitamins, herbs, eye drops, creams, and tbok-ukk-rmetopl medicines. ? Any problems you or family [...] tells you to take them. ? Taking rwss-osc-xuprevm medicines, vitamins, herbs, and supplements. Tests You [...] these instructions at home: Medicines ? Take yhrf-uuw-egqoxqg and prescription medicines only as told by [...] or the department th (more content not included)...[facility] 02-12-2023 Evaluation note* Encounter Date Diagnosis Assessment [...] treatment in ER COntinue secondary preventive measures. [employer] Other 11-13-2023 History of Present illness Narrative* [...] carotid disease. He continues to travel to [place] annually to be evaluated by the vascular [...] , Rfl: ergocalciferol (Vitamin D-2) 1.25 MG (99307 UT) capsule, Take 1 capsule (1,250 mcg) [...] stenosis Followed by his vascular surgeon in [place] [facility]: 1(914) 513-658411-13-2023 Instructions* Patient Instructions* Gentry Corona [place] - [...] time of your visit. [facility] Work Phone: [phone]) 286-251708-31-2023 Evaluation note* Encounter Date Diagnosis Assessment Notes [...] Continue oral vitamin D every 2 weeks. [employer] Other 06-27-2023 Evaluation note* Encounter Date Diagnosis Assessment Notes Treatment Notes Treatment Clinical Notes Aug, Stage 3a chronic kidney disease (ICD-10 - N18.31) [employer] Other 02-14-2023 Evaluation note* Encounter Date Diagnosis Assessment Notes Treatment Notes Treatment Clinical Notes Apr, Elevated cholesterol (ICD-10 - E78.00) [employer] Other 02-02-2023 Evaluation note* Encounter Date Diagnosis [...] Change oral vitamin D every 2 weeks. [employer] Other 12-27-2022 Evaluation note* Encounter Date Diagnosis Assessment Notes Treatment Notes Treatment Clinical Notes Feb, Vitamin D deficiency (ICD-10 - E55.9) [employer] Other 07-07-2022 Evaluation note* Encounter Date Diagnosis [...] Change oral vitamin D every 2 weeks. [employer] Other 07-07-2022 Evaluation note* Encounter Date Diagnosis Assessment Notes Treatment Notes Treatment Clinical Notes Sep, Vitamin D deficiency (ICD-10 - E55.9) [employer] Other 05-16-2022 Evaluation note* Encounter Date Diagnosis Assessment Notes Treatment Notes Treatment Clinical Notes July, Subacute subdural hematoma (ICD-10 - S06.5X9A) The patient will increase his activities as tolerated and we will see him back in about 3 weeks, when he is about a month out from surgery for a repeat CT scan without contrast. [employer] Other 05-01-2022 History general Narrative - Reported* [...] 12/2018 Surgical History BRA[facility] BLEED SURGERY IN [facility] 07/2021 Hospitalization History See past surgical hx Hospitalization History KIDNEY STONES [employer] Other evaluation + Plan note No data available for this section [facility] evaluation + Plan note Future Appointments Appointment Date:04/28/2023 11:00:00 AM Scheduled Provider: Location:[facility] Appointment Type:Urology FT [facility] [place] Evaluation + Plan note Future Appointments Appointment Date:11/23/2023 10:30:00 AM Scheduled Provider:Jourdan URBINA MD Location:[facility] Appointment Type:URO Office Visit [facility] evaluation noteNo [employer]Nort [employer] Other evaluation note* Diagnosis Mixed hyperlipidemia- Primary Ventricular tachycardia, paroxysmal (CMS/HCC) TIA (transient ischemic attack) Unspecified transient cerebral ischemia History of right-sided carotid endarterectomy Essential hypertension Unspecified essential hypertension Bilateral carotid artery stenosis Occlusion and stenosis of carotid artery without mention of cerebral infarction documented in this encounter [facility] Work Phone: Evaluation note* Diagnosis Onset Date Resolution Status CKD (chronic kidney disease) stage 3, GFR 30-59 ml/min acute [id number] acute Hyperuricemia acute Secondary hyperparathyroidism acute Thrombocytopenia acute Urinary retention due to benign prostatic hyperplasia acute [facility] Work Phone: Evaluation note* Diagnosis Onset Date Resolution Status Hyperuricemia acute Secondary hyperparathyroidism acute Urinary retention due to luisito ign prostatic hyperplasia acute Benign prostatic hyperplasia with lower urinary tract symptoms acute Chronic kidney disease acute Essential (primary) hypertension acute Indwelling Dias catheter present noneactive Gross hematuria noneactive [facility] Work Phone: History general Narrative - Reported* Type Description Date Medical History Kidney stones Medical History Enlarged Prostate Medical History TIA Surgical History Lithotripsy, multiple Surgical History Lap Rika 2013 Surgical History Total right knee surgery 1997 Surgical History Appendectomy Surgical History Hernia Surgical History UROLIFT 2017 Surgical History CAROTID RIGHT SIDE 12/2018 Hospitalization History See past surgical hx Hospitalization History KIDNEY STONES [employer] Other History of Present illness Narrative* Patient [...] merits of a modest diet were reviewed. -[facility]Leatha [address] DO Work Phone: History [...] available for this section [facility] Progress note No data available for this section [facility] reason for referral (narrative)* Consultation (Routine) - Authorized Specialty Diagnoses / Procedures Referred By Alex oconnell Referred To Contact Cardiology Diagnoses Bilateral carotid artery stenosis Procedures Follow Up In Cardiology Kaiser Gómez MD [address] [place] [id number] Kaiser Gómez MD [address] [place] [phone] Referral ID Status Reason Start Date Expiration Date V isits Requested Visits Authorized [id number] Authorized 01/26/2023 01/26/2024 1 1 [facility] Work Phone: Summary Purpose Family History No [...] kidney disease) stage 3, GFR 30-59 ml/min [id number] Hyperuricemia Secondary hyperparathyroidism Thrombocytopenia Urinary retention due [...] section and content) DATE CREATED AUTHOR 09/17/2017 [facility] DATE CREATED AUTHOR AUTHOR'S ORGANIZ ATION 09/04/2018 [facility] DATE CREATED AUTHOR AUTHOR'S ORGANIZ ATION 01/16/[address] [facility] DATE CREATED AUTHOR AUTHOR'S ORGANIZ ATION 01/16/2022 [facility] DATE CREATED AUTHOR AUTHOR'S ORGANIZ ATION 04/19/2022 [facility] DATE CREATED AUTHOR AUTHOR'S ORGANIZ ATION 07/24/2022 [facility] DATE CREATED AUTHOR AUTHOR'S ORGANIZ ATION 04/17/2023 [facility] EPIC DATE CREATED AUTHOR AUTHOR'S ORGANIZ ATION 06/03/2023 [facility] REASON FOR VISIT (unrecogniz ed section and content) Reason Comments Annual Exam Care Teams (unrecognized sec tion and content) 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 [facility]. provides no warranty or guarantee of the accuracy or completeness of information in this document.
--- NOTE | 2023-06-16 16:07 | CM.DCFOLLOWU ---
Person spoke with: patient How are you feeling? better How is your pain? no pain Did you understand your discharge instructions? yes Do you have any questions about your discharge instructions? no Were you given any prescriptions at discharge? yes Were you able to get your prescriptions filled? yes Do you understand how to take your medications as ordered? yes Do you have any questions about your follow up appointment and do you plan to keep your follow up appointment? no questions, follow up 06/17/23 Is there anything else that you would like to discuss? no Questions/Comments/Concerns/Other: N/A
== END 2023-06-15 13:50 | disposition home or self-care (01) ==
LOC: ER 18:29 → MS 06-15 09:02
PROVIDERS: Physician Assistant; Registered Nurse; Admitting Provider Family Medicine; Emergency Provider Emergency Medicine; PCP Internal Medicine; Visit Provider Family Medicine
DX: N45.1 Epididymitis (principal); N39.0 Urinary tract infection, site not specified; R50.9 Fever, unspecified; R00.0 Tachycardia, unspecified; R06.03 Acute respiratory distress; I10 Essential (primary) hypertension; D72.829 Elevated white blood cell count, unspecified; I12.9 Hypertensive chronic kidney disease with stage 1 through stage 4 chronic kidney disease, or unspecified chronic kidney disease; N18.2 Chronic kidney disease, stage 2 (mild); D50.9 Iron deficiency anemia, unspecified; D69.6 Thrombocytopenia, unspecified; G20.A1 Parkinson's disease without dyskinesia, without mention of fluctuations; N40.1 Benign prostatic hyperplasia with lower urinary tract symptoms; N13.8 Other obstructive and reflux uropathy; R35.1 Nocturia; R39.11 Hesitancy of micturition; B95.2 Enterococcus as the cause of diseases classified elsewhere; B96.89 Other specified bacterial agents as the cause of diseases classified elsewhere; Z79.82 Long term (current) use of aspirin; Z79.899 Other long term (current) drug therapy; Z96.659 Presence of unspecified artificial knee joint; Z90.49 Acquired absence of other specified parts of digestive tract; Z98.890 Other specified postprocedural states; Z86.73 Personal history of transient ischemic attack (TIA), and cerebral infarction without residual deficits; Z87.442 Personal history of urinary calculi; Z79.4 Long term (current) use of insulin
CPT/HCPCS: 36415; 71045; 76870; 80048; 80053; 80076; 81001; 82800; 83605; 84145; 84443; 84484; 85025; 87040; 87086; 87150; 87186; 93005; 94761; 96365; 96367; 96372; 96375; 97161; 97165; 97530; 99285; G0378

== ENCOUNTER 2023-12-07 12:59 | Emergency (ER) | payer OTHER, SELFPAY ==
[2023-12-07 13:00] VITALS: BP 135/91; PULSE 55; TEMP 36.6; O2SAT 100; BMI 27.3
--- NOTE | 2023-12-07 13:45 | CT_ITS ---
[address] [address] Patient Name: TAMMI RICHMOND MRN: [facility]:[id number] date: 1935 Sex: M Assigned Patient Location: ER Current Patient Location: Accession/Order Number: [id number] Exam Date: 12/07/2023 13:35 Report Date: 12/07/2023 14:24 At the request of: COLEMAN SANCHEZ Procedure: CT abdomen pelvis wo con EXAMINATION: CT abdomen pelvis wo con HISTORY: sbo COMPARISON: No relevant comparison available. TECHNIQUE: Axial, Coronal, and Sagittal images were created without IV contrast. Dose reduction techniques were achieved by using automated exposure control and/or adjustment of mA and/or kV according to patient size and/or use of iterative reconstruction technique. FINDINGS: LUNG BASES: No visible pulmonary or pleural disease. Cardiomegaly LIVER: No enlargement, atrophy, abnormal density, or significant focal lesion. BILIARY: Surgical clips from cholecystectomy PANCREAS: No lesion, fluid collection, ductal dilatation, or atrophy. SPLEEN: No enlargement or focal lesion. ADRENALS: No mass or enlargement. KIDNEYS: Bilateral nonobstructing nephrolithiasis. Right cortical hypodensity, a cyst is favored. Right cortical 1.4 cm hyperdensity axial image #53, indeterminate but stable from 2020. Severe left renal atrophy BOWEL/MESENTERY: Large amount of stool in the rectum which measures 9.1 cm transversely. Colonic diverticulosis without evidence of acute diverticulitis. Nonobstructive bowel gas pattern. AORTA/VASCULAR: No aortic aneurysm. Extensive calcific atherosclerosis RETROPERITONEUM: No mass or adenopathy. LYMPH NODES: No adenopathy. URINARY BLADDER: No visible focal wall thickening, lesion, or calculus. PELVIC ORGANS: Mildly enlarged prostate gland is 5.2 cm with calcifications ABDOMINAL WALL: No mass or hernia. BONES: No bony lesion or fracture. Moderate degenerative changes. 8 mm anterolisthesis of L4 OTHER: Negative. CT/CT abdomen pelvis wo con IMPRESSION: Large amount of stool in the rectum Electronically authenticated by: VANI RIDLEY Date: 12/07/2023 14:24
[2023-12-07 13:46] LABS: Basophils Percent Auto 0.3 % (0.2-2.0); Eosinophils Absolute Auto 0.3 10^3/uL (0.0-0.7); Eosinophils Percent Auto 4.3 % (0.9-7.0); Hematocrit 38.5 % (42.0-54.0); Hemoglobin 13.4 g/dL (14.0-18.0); Immature Granulocytes Abs Auto 0.06 10^3/uL (0.00-0.03); Lymphocytes Absolute Auto 0.9 10^3/uL (1.2-3.8); Lymphocytes Percent Auto 14.3 % (20.5-60.0); Mean Corpuscular HGB Conc 34.8 g/dL (29.9-35.2); Mean Corpuscular Hemoglobin 29.8 pg (25.9-34.0); Mean Corpuscular Volume 85.6 fL (80.0-94.0); Mean Platelet Volume 9.9 fL (9.5-13.5); Monocytes Absolute Auto 0.5 10^3/uL (0.3-0.8); Neutrophils Absolute Auto 4.3 10^3/uL (1.4-6.5); Neutrophils Percent Auto 72.1 % (43.0-75.0); Platelet Count 144 10^3/uL (150-450); Red Cell Distribution Width 13.5 % (11.0-15.0)
[2023-12-07 14:02] LABS: Alanine Aminotransferase 10 U/L (16-63); Albumin Globulin Ratio 1.3; Albumin Level 3.9 g/dL (3.4-5.0); Alkaline Phosphatase 101 U/L (46-116); Anion Gap 10.4; Aspartate Amino Transferase 18 U/L (15-37); BUN Creatinine Ratio 17.5; Bilirubin Total 1.6 mg/dL (0.2-1.0); Calcium 9.7 mg/dL (8.5-10.1); Carbon Dioxide 31.1 mmol/L (21.0-32.0); Chloride 96 mmol/L (98-107); Estimated GFR (African America 59 (>=60); Estimated GFR (Non-African Ame 49 (>=60); Globulin 3.1 g/dL; Glucose 118 mg/dL (74-106); Potassium 3.5 mmol/L (3.5-5.1); Sodium 134 mmol/L (136-145)
[2023-12-07 14:03] LABS: Magnesium 2.2 mg/dL (1.8-2.4)
[2023-12-07 16:34] VITALS: BP 129/92; PULSE 68; O2SAT 98
--- NOTE | 2023-12-07 16:44 | ED_ITS ---
HPI - Abdominal Pain General Chief Complaint: Abdominal Pain Stated Complaint: CONSTIPATION, ABDOMINAL PAIN Time Seen by Provider: 12/07/23 13:04 Source: patient and EMR Mode of arrival: ambulance Limitations: other Limitations comment: [facility] History of Present Illness HPI narrative: The patient presenting to us from home with his daughter in his at the bedside. Main complaint that the patient has been having constipation for the last almost 1 week although he mentioned that before that he was having some loose stool although very minimal, the patient is feeling distended no abdominal pain his last intake was yesterday night No nausea no vomiting no other complaints Related Data Home Medications ?Medication ?Instructions ?Recorded ?Confirmed aspirin 81 mg tablet,delayed 81 mg PO DAILY 04/01/23 12/07/23 release (Adult Aspirin Regimen) hydrochlorothiazide 12.5 mg tablet 12.5 mg PO DAILY 04/01/23 12/07/23 lutein 25 mg-zeaxanthin 5 mg 1 cap PO DAILY 04/01/23 12/07/23 capsule (Ocuvite Blue Light) tamsulosin 0.4 mg capsule (Flomax) 0.4 mg PO DAILY 04/01/23 12/07/23 carbidopa 25 mg-levodopa 100 mg 1.5 tab PO QID 06/15/23 12/07/23 tablet ergocalciferol (vitamin D2) 1,250 1,250 mcg PO Q14D 06/15/23 12/07/23 mcg (50,000 unit) capsule latanoprost 0.005 % eye drops 1 drp ophthalmic (eye) .QHS 06/15/23 12/07/23 Previous Rx's ?Medication ?Instructions ?Recorded bisacodyl 5 mg tablet,delayed 5 mg PO DAILY #14 tabs 12/07/23 release (Dulcolax (bisacodyl)) Allergies Allergy/AdvReac Type Severity Reaction Status Date / Time No Known Drug Allergies Allergy Verified 12/07/23 13:00 Review of Systems ROS Status of ROS 10 or more systems reviewed and unremark able except as noted in history and below [facility] Medical History (Updated 12/07/23 @ 15:59 by Jojo Dela Cruz MD) Epididymitis ?N45.1 - Epididymitis (ICD-10) Sepsis ?A41.9 - Sepsis, unspecified organism (ICD-10) Urinary tract infection ?N39.0 - Urinary tract infection, site not specified (ICD-10) Cataract ?H26.9 - Unspecified cataract (ICD-10) Urgency of urination ?R39.15 - Urgency of urination (ICD-10) Transient ischemic attack ?G45.9 - Transient cerebral ischemic attack, unspecified (ICD-10) Recurrent UTI ?N39.0 - Urinary tract infection, site not specified (ICD-10) Nocturia ?R35.1 - Nocturia (ICD-10) Kidney stones ?N20.0 - Calculus of kidney (ICD-10) Hypertension ?I10 - Essential (primary) hypertension (ICD-10) Hesitancy of micturition ?R39.11 - Hesitancy of micturition (ICD-10) Gross hematuria ?R31.0 - Gross hematuria (ICD-10) 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 - Benign prostatic hyperplasia with lower urinary tract symptoms (ICD- 10) ?N13.8 - Other obstructive and reflux uropathy (ICD-10) Back pain ?M54.9 - Dorsalgia, unspecified (ICD-10) Abdominal pain ?R10.9 - Unspecified abdominal pain (ICD-10) Surgical History (Updated 04/01/23 @ 10:23 by Mauricio Llanes) 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 - Presence of unspecified artificial knee joint (ICD-10) H/O hernia repair ?Z98.890 - Other specified postprocedural states (ICD-10) ?Z87.19 - Personal history of other diseases of the digestive system (ICD-10) Hx of appendectomy ?Z90.49 - Acquired absence of other specified parts of digestive tract (ICD- 10) H/O cystoscopy ?Z98.890 - Other specified postprocedural states (ICD-10) H/O lithotripsy ?Z98.890 - Other specified postprocedural states (ICD-10) Family History (Updated 04/01/23 @ 10:24 by Mauricio Llanes) Brother Kidney stones Sister Kidney stones Father Family history of cancer Social History Within the past year, how often did you have a drink containing alcohol: never Score interpretation: A score less than 4 is consistent with normal alcohol consumption. Smoking status: Never smoker Non-prescribed substance use: denies use Highest level of school completed/degree received: high school graduate Little interest or pleasure in doing things: not at all Feeling down, depressed, or hopeless: not at all Do you think of yourself as: straight/heterosexual Exam Narrative Exam Narrative: Nurses notes and vital signs reviewed and patient is not hypoxic. General: Well-appearing and in no apparent distress. Hard of hearing Skin: Warm, dry, no pallor noted. No rash. Head: Normocephalic, atraumatic. Neck: Supple, non-tender. Eye: Pupils are equal, round and EOMI. No scleral icterus. Ears, Nose, Mouth, and Throat: TM are clear, no nasal mucosal hypertrophy. Oral mucosa is moist, no posterior oropharynx erythema, uvula is mid-line Cardiovascular: Regular Rate and Rhythm without murmur, gallop or rub. Respiratory: No accessory muscle use or respiratory distress. Lungs are clear to auscultation, no wheezing, rales or rhonchi Chest Wall: no tenderness Back: No midline thoracic or lumbar vertebral tenderness. No CVA tenderness Musculoskeletal: normal ROM, no calf or popliteal tenderness, no lower extremity edema/swelling GI: Abdomen is soft,, distended tympanic No masses appreciated. No tenderness to palpation. No rebound, guarding, or rigidity noted. Psychiatric: Cooperative and interactive. Normal mood and affect. Rectal exam showed that the patient have external hemorrhoid at least 3 of them mild irritation Constitutional Vital Signs, click to edit/add: Last Vital Signs Temp 97.9 F 12/07/23 13:00 Pulse 68 12/07/23 16:34 Resp 18 12/07/23 16:34 BP 129/92 H 12/07/23 16:34 Pulse Ox 98 12/07/23 16:34 O2 Del Method Room Air 12/07/23 13:00 Course Vital Signs Vital signs: Vital Signs Temperature 97.9 F 12/07/23 13:00 Pulse Rate 55 L 12/07/23 13:00 Respiratory Rate 18 12/07/23 13:00 Blood Pressure 135/91 12/07/23 13:00 Pulse Oximetry 100 12/07/23 13:00 Oxygen Delivery Method Room Air 12/07/23 13:00 Temperature 97.9 F 12/07/23 13:00 Pulse Rate 68 12/07/23 16:34 Respiratory Rate 18 12/07/23 16:34 Blood Pressure 129/92 H 12/07/23 16:34 Pulse Oximetry 98 12/07/23 16:34 Oxygen Delivery Method Room Air 12/07/23 13:00 MDM - Abdominal Pain MDM Narrative Medical decision making narrative: The patient CBC and chemistry showed no acute significant pathology compared to his baseline CAT scan of the abdomen pelvis shows fecal impaction The patient had a bedside fecal disimpaction as well as 3 enemas after which a big amount of stool came out The patient will be starting Dulcolax daily in addition to supportive care and taking the MiraLAX in case needed Family at the bedside instructed about monitoring and follow-up with the doctor within a week The patient is to follow up with primary care physician in next 2-3 days or to return to the emergency department should any of the signs or symptoms worsen or new symptoms develop. The patient agrees with the following Diagnosis and Treatment plan and the patient will be discharged home. Lab Data Labs: Lab Results 12/07/23 Range/Units 13:31 WBC 6.0 (4.0-11.0) 10^3/uL RBC 4.50 L (4.70-6.10) 10^6/uL Hgb 13.4 L (14.0-18.0) g/dL Hct 38.5 L (42.0-54.0) % MCV 85.6 (80.0-94.0) fL MCH 29.8 (25.9-34.0) pg MCHC 34.8 (29.9-35.2) g/dL RDW 13.5 (11.0-15.0) % Plt Count 144 L (150-450) 10^3/uL MPV 9.9 (9.5-13.5) fL Neut % (Auto) 72.1 (43.0-75.0) % Lymph % (Auto) 14.3 L (20.5-60.0) % Ocean % (Auto) 8.0 (1.7-12.0) % Eos % (Auto) 4.3 (0.9-7.0) % Baso % (Auto) 0.3 (0.2-2.0) % Neut # (Auto) 4.3 (1.4-6.5) 10^3/uL Lymph # (Auto) 0.9 L (1.2-3.8) 10^3/uL Ocean # (Auto) 0.5 (0.3-0.8) 10^3/uL Eos # (Auto) 0.3 (0.0-0.7) 10^3/uL Baso # (Auto) 0.0 (0.0-0.1) 10^3/uL Abs Immat Gran (auto) 0.06 H (0.00-0.03) 10^3/uL Imm/Tot Granulo (auto) 1.0 H (0.0-0.5) % Sodium 134 L (136-145) mmol/L Potassium 3.5 (3.5-5.1) mmol/L Chloride 96 L (98-107) mmol/L Carbon Dioxide 31.1 (21.0-32.0) mmol/L Anion Gap 10.4 BUN 24.0 H (7.0-18.0) mg/dL Creatinine 1.37 H (0.70-1.30) mg/dL Est GFR ( Amer) 59 L (>=60) Est GFR (Non-Af Amer) 49 L (>=60) BUN/Creatinine Ratio 17.5 Glucose 118 H (74-106) mg/dL Calcium 9.7 (8.5-10.1) mg/dL Magnesium 2.2 (1.8-2.4) mg/dL Total Bilirubin 1.6 H (0.2-1.0) mg/dL AST 18 (15-37) U/L ALT 10 L (16-63) U/L Alkaline Phosphatase 101 (46-116) U/L Total Protein 7.0 (6.4-8.2) g/dL Albumin 3.9 (3.4-5.0) g/dL Globulin 3.1 g/dL Albumin/Globulin Ratio 1.3 Discharge Plan Discharge Chief Complaint: Abdominal Pain Clinical Impression: Constipation, Fecal impaction Patient Disposition: Home, Self-Care Time of Disposition Decision: 15:59 Condition: Good Prescriptions / Home Meds: New bisacodyl [Dulcolax (bisacodyl)] 5 mg tablet,delayed release (DR/EC) 5 mg PO DAILY Qty: 14 0RF No Action aspirin [Adult Aspirin Regimen] 81 mg tablet,delayed release (DR/EC) 81 mg PO DAILY tamsulosin [Flomax] 0.4 mg capsule 0.4 mg PO DAILY hydrochlorothiazide 12.5 mg tablet 12.5 mg PO DAILY lutein-zeaxanthin [Ocuvite Blue Light] 25-5 mg capsule 1 cap PO DAILY carbidopa-levodopa 25-100 mg tablet 1.5 tab PO QID ergocalciferol (vitamin D2) 1,250 mcg (50,000 unit) capsule 1,250 mcg PO Q14D latanoprost 0.005 % drops 1 drp OPHTHALMIC (EYE) .QHS Rx Instructions: BOTH EYES Print Language: Niuean Instructions: Constipation (DC) Referrals: Wilder Kay DO [Primary Care Provider] - 1 week Discharge Date/Time: 12/07/23 16:36
== END 2023-12-07 16:36 | disposition home or self-care (01) ==
PROVIDERS: Emergency Provider Emergency Medicine; PCP Internal Medicine
DX: K59.00 Constipation, unspecified (principal)
CPT/HCPCS: 36415; 74176; 80053; 83735; 85025; 99284

== ENCOUNTER 2024-03-05 01:35 | Emergency (ER) | payer OTHER, SELFPAY ==
[2024-03-05 01:39] VITALS: BP 133/73; PULSE 65; TEMP 36.7; O2SAT 95; BMI 25.1
--- OUTSIDE RECORDS SUMMARY | 2024-03-05 01:41 | XMS_ITS | CCD ---
Author Organization [facility] Care Team Providers Care Supervisor Tumbling And Rolling Name Role Phone DONOVAN CASTORENA Unavailable Unavailable ELIZABETHCASEYBEN Chung Unavailable Unavailable Wilder Sam Unavailable Unavailable Unavailable Angel Cotton Unavailable Nabil Scott Unavailable Kaiser Gómez II Referring Unavailable Enma SANTIAGO, Kaiser Attending Unavailable Wilder Sam Primary Care Unavailbernadine e Wilder Sam eloise Primary Care Unavailbernadine e Kaiser Gómez II [...] Care Unavailable ENMA, DR HECK Attending Unavailable MCGUINReynaldo, DR HECK Consulting Unavailable CECY, DR HDZ Admitting Unavailable CECY, DR HDZ Attending Unavailable CECY, DR HDZ Consulting Unavailable CECY, DR HDZ Primary Care Unavailable CECY, DR HDZ Admitting Unavailable CECY, DR HDZ Attending Unavailable CECY, DR HDZ Consulting Unavailable CECY, DR HDZ Primary Care Unavailable RICEVILLE, DR VANI Gabriel Consulting Unavailable CECY, DR HDZ Primary Care Unavailable DANIA COMBS Admitting Unavailable DANIA COMBS Attending Unavailable DANIA COMBS Consulting Unavailable MISC, DR MORA Attending Unavailable MISC, DR MORA Consulting Unavailable MISC, DR MORA Admitting Unavailable CECY, DR HDZ Primary Care Unavailable ASIA ESPINAL Consulting Unavailable MCGUINN, DR HECK Consulting Unavailable CECY, DR HDZ Primary Care Unavailable MCGUINN, DR HECK Admitting Unavailable MCGUINN, DR HECK Attending Unavailable Wilder Sam DO Primary Care Provider WILDER SAM Primary Care Physician BONILLA LOPEZ Attending Unavailable BONILLA LOPEZ Referring Unavailable CECY, WILDER Luna Primary Care Unavailable NAIF ESTRADA Attending Unavailable CECY, WILDER Luna Referring Unavailable CECY, WILDER Luna Primary Care Unavailable CIARA, Jourdan Anderson Attending Unavailable URBINA, Jourdan Anderson Attending Unavailable URBINA, Jourdan Anderson Admitting Unavailable URBINA, Jourdan Anderson Referring Unavailable Orzech, Priti Daniels Attending Unavailable Orzech, Priti Daniels Admitting Unavailable URBINA, Jourdan Anderson Attending Unavailable Orzech, Priti Daniels Attending Unavailable URBINA, Jourdan Anderson Attending Unavailable Orzech, Priti Daniels Attending Unavailable URBINA, Jourdan Anderson Attending Unavailable Wilder Sam MD Primary Care Provider ASIA SEXTON Attending Unavailable PALOMO, JEFFREY Meade Attending Unavailable WILDER SAM Referring Unavailable RUS, ASIA Meade Attending Unavailable PETITTI, KARISSA Meade Attending Unavailable MARINA HEADLEY Attending Unavailable PALOMO, JEFFREY Meade Attending Unavailable SHAYLA TSAI Attending Unavailable PETITTI, KARISSA Meade Attending Unavailable PETITTI, KARISSA Meade Attending Unavailable CANDELARIO, ASIA Meade Attending Unavailable REBEKAH HARRIS Attending Unavailable SHAYLA TSAI Attending Unavailable CANDELARIO, ASIA Meade Attending Unavailable Medications Current Medications Medication Drug Class(es) Dates Sig (Normalized) Sig (Original) amLODIPine 5 mg oral tablet (20 sources) Dihydropyridine Calcium Channel Cyrus Start: 04-30-2023 take 1 tablet by mouth once daily Amlodipine Active 1 TAB PO Daily April 30, 2023 1:00am FreeTextSi tablet Orally Once a day; Note: Source Status: Continue; Provider: Cecy Luna Start: 08-04-2022 take 1 tablet by jace th every twenty-four hours amLODIPine Besylate 5 MG 1 tablet Orally Once a day July, Active Start: 11-21-2019 End: 07-15-2021 take 5 mg by mouth once daily Amlodipine Discontinued 5 MG PO Daily November 21, 2019 12:00am July 15, 2021 2:14pm Ocuvite (6 sources) Vitamin C Start: 01-31-2019 take 1 tablet by mouth once daily Ocuvite tab(s), Oral, Daily, Refill(s) 0 Start Date: 01/31/19 Status: Ordered aspirin 81 mg delayed release oral tablet (20 sources) Platelet Aggregation Inhibitor, Nonsteroidal Anti-inflammatory Drug Start: 04-30-2023 take 81 mg by mouth once daily Aspirin Active 81 MG PO Daily April 30, 2023 1:00am Start: 11-17-2019 End: 04-30-2023 take 81 mg by mouth once daily Aspirin Discontinued 81 MG PO Daily July 15, 2021 12:00am April 30, 2023 4:18pm atorvastatin 80 mg oral tablet (20 sources) HMG-CoA Reductase Inhibitor Start: 11-24-2023 take 1 tablet by mouth once daily atorvastatin (Lipitor) 80 MG tablet Take 80 mg by mouth Daily 11/24/2023 Active Start: 04-30-2023 End: 08-06-2023 take 1 tablet by mouth once daily Atorvastatin Active 80 MG PO Daily 100 100 August 06, 2023 10:02am FreeTextSig: TAKE 1 TABLET BY MOUTH ONCE DAILY; Note: Source Status: Start; Refills: 3; Qty: 100 Tablet; Provider: Cecy Hdz ( ) Start: 08-21-2020 take 1 tablet by jace once daily atorvastatin (Lipitor) 20 mg tablet Take 1 tablet (20 mg) by mouth once daily. 0 08/21/2020 Active Start: 11-18-2019 End: 04-30-2023 take 1 tablet by mouth once daily Atorvastatin (Lipitor) 40 mg tablet Discontinued 40 MG PO Daily November 18, 2019 12:00am April 30, 2023 4:18pm take 2 tablets by mo [facility] every twenty-four hours Atorvastatin Calcium 40 MG 2 tablets Oral Once a day Active calcium polycarbophil 625 mg oral tablet (10 sources) Start: 04-30-2023 take 2 tablets by mouth once daily as needed Calcium Polycarbophil (Fiber (Calcium Polycarbophil)) 625 mg tablet Active 1250 MG PO Daily April 30, 2023 1:00am FreeTextSi tablets as needed Orally ONCE A DAY; Note: Source Status: Taking; Provider: Cecy Hdz ( ) take 2 tablets by mo [facility] every twenty-four hours Fiber 625 MG 2 tablets as needed Orally ONCE A DAY Active End: 01-26-2023 CALCIUM POLYCARBOPHIL ORAL T zeynep by mouth. As diected 0 01/26/2023 Discontinued (Therapy completed) carbidopa 25 mg / levodopa 100 mg oral tablet (20 sources) Aromatic Amino Acid Decarboxylation Inhibitor, Aromatic Amino Acid Start: 08-19-2023 take 1.5 tablets by mouth four times daily carbidopa-levodopa (Sinemet) 25-100 MG tablet Indications: Parkinson's disease without fluctuating manifestations, unspecified whether dyskinesia present (CMS/[facility]) 1.5 tabs po QID 540 tablet 1 08/19/2023 Active Start: 11-18-2019 End: 04-30-2023 take 1 tablet by mouth four times daily Carbidopa-Levodopa Active TAB PO April 30, 2023 1:00am FreeTextSig: TAKE 1 TABLET BY MOUTH FOUR [...] DAILY Oral for 90 Days Active cephalexin 500 mg oral capsule (11 sources) Cephalosporin Antibacterial Start: 11-25-2023 take 1 capsule by mouth twice daily cephalexin (Keflex) 500 MG capsule 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 Take 1 capsule, by mouth, bid, 10 days 20 capsule 11/25/2023 Active Start: 02-16-2023 End: 02-26-2023 take 1 capsule by mouth twice daily Keflex 250 mg Cap 250 mg = 1 cap(s), Oral, BID, X 10 day(s), # 20 cap(s), Refills(s) 0, Pharmacy: [facility][id number], , 02/16/23 10:45:00 EST, Height/Length Dosing, 85, kg, 02/16/23 10:45:00 EST, Weight Dosing Start Date: 02/16/23 Stop Date: 02/26/23 Status: Ordered Start: 08-14-2021 take 1 capsule by mo uth twice daily Cephalexin 500 MG Oral Capsule TAKE 1 CAPSULE BY MOUTH TWICE DAILY FOR 7 DAYS Quantity: 14 Refills: 0 Ordered: 14-Aug-2021 DO Start : 14-Aug-2021 Complete ciclopirox 7.7 mg/ml topical cream (9 sources) Start: 09-15-2023 ciclopirox (Lo prox) 0.77 % cream Indications: Intertrigo Apply to armpits once a day/30 day supply 30 g 11 09/15/2023 Active docusate sodium 100 mg oral capsule (20 sources) Start: 12-09-2023 take 100 mg by mouth once daily Docusate Sodium Active 100 MG PO Daily December 09, 2023 12:00am Start: 04-30-2023 take [address] [facility] twice daily as needed Docusate Sodium Active 1 CAP PO Twice daily April 30, 2023 1:00am FreeTextSi capsule as needed Orally TWICE A DAY; Note: Source Status: Taking; Provider: Cecy Hdz ( ) take 1 capsule by mo [facility] in the morning docusate sodium (Colace) 100 MG capsule Take 100 mg by mouth in the morning and 100 mg before bedtime. Active take 1 capsule by mo ut every twelve hours Colace 100 MG 1 capsule as needed Orally TWICE A DAY Active Ergocalciferol (20 sources) Provitamin D2 Compound Start: 09-25-2023 take 1 capsule by mouth every other week Ergocalciferol (Vitamin D2) Active 0 .ROUTE .COMPLEX September 25, 2023 11:34am TAKE 1 CAPSULE BY MOUTH EVERY 2 weeks Start: 04-30-2023 End: 09-25-2023 take 00743 [IU] by mouth every other week Ergocalciferol (Vitamin D2) Discontinued 94023 UNIT PO .[id number] September 23, 2023 10:01am September 25, 2023 11:34am Start: 01-15-2022 ergocalciferol 50,000 intl units Cap [...] every week Vitamin D (Ergocalciferol) 1.25 MG (63578 UT) Oral Capsule TAKE 1 CAPSULE BY MOUTH EVERY week Quantity: 12 Refills: 0 Ordered: 30-Apr-2021 DO Start : 14-Feb-2021 Complete take 1 capsule by mo uth every other week Ergocalciferol 1.25 MG (10156 UT) 1 capsule Orally Q2 weeks for 90 days Active take 1 capsule by mo uth every week ergocalciferol (Vitamin D-2) 1.25 MG (83405 UT) capsule Take 1 capsule (1,250 mcg) [...] as needed Orally ONCE A DAY Active latanoprost 0.05 mg/ml ophthalmic solution (9 sources) Prostaglandin Analog Start: 07-24-2023 take 1 drop(s) into the eye(s) once daily latanoprost (Xalatan) 0.005 % ophthalmic solution instill 1 DROP IN BOTH EYES EVERY NIGHT 07/24/2023 Active 24 hr metoprolol succinate 25 mg extended release oral tablet (20 sources) beta-Adrenergic Cyrus Start: 04-30-2023 take 1 tablet by mouth once daily Metoprolol Succinate Active 1 TAB PO Daily April 30, 2023 1:00am FreeTextSi tablet Orally Once a day; Note: Source Status: Continue; Provider: Cecy Luna Start: 08-04-2022 take 1 tablet by jace every twenty-four hours Metoprolol Succinate ER 25 MG 1 tablet Orally Once a day July, Active Start: 11-18-2019 End: 07-15-2021 take 25 mg by mouth once daily Metoprolol Succinate Di scontinued 25 MG PO Daily November 18, 2019 12:00am July 15, 2021 2:12pm take 1 tablet by jace th every twenty-four hours metoprolol succinate XL (Toprol-XL) 25 MG 24 hr tablet Take by mouth. Do not crush or chew. Active Iw-Vz-Vv0-Rzg-Alo-Drsz-Lut-Z ea (Ocuvite Adult 50 Plus) 250 mg (90 mg-160 mg) capsule (7 sources) Start: 04-30-2023 take 1 capsule by mouth twice daily Bk-Iy-Ik2-Xzs-Buo-Hznq-Lut-Paulo (Ocuvite Adult 50 Plus) 250 mg (90 mg-160 mg) capsule Active 1 CAP PO .twice a day April 30, 2023 1:00am Start: 04-30-2023 take 1 capsule by mouth twice daily Iw-Xy-Uf3-Sol-Bbj-Neca-Lut-Paulo (Ocuvite Adult 50 Plus) 250 mg (90 mg-160 mg) capsule Active 1 CAP PO .twice a day April 30, 2023 12:00am nystatin 100 unt/mg topical powder (9 sources) Polyene Antifungal Start: 09-15-2023 nystatin (Mycostatin) 113755 UNIT/GM powder Indications: Intertrigo Apply to armpits twice a day when needed, 30 day supply 30 g 11 09/15/2023 Active [facility] - (10 sources) Ocuv2-[facility] Formula - as directed Orally Active ondansetron 4 mg disintegrating oral tablet (1 source) Serotonin-3 Receptor Antagonist Start: 12-09-2023 take 4 mg by mouth every eight hours Ondansetron Active 4 MG PO Every 8 hours 12 December 09, 2023 12:00am oxybutynin chloride 5 mg oral tablet (2 sources) Cholinergic Muscarinic Antagonist Start: 04-08-2023 take 1 tablet by mouth three times daily as needed oxybutynin 5 mg Tab 5 mg = 1 tab(s), Oral, TID, PRN for urinary discomfort, # 30 tab(s), Refills(s) 0, Pharmacy: [facility] #[id number], 177, cm, 02/16/23 10:45:00 EST, Height/Length Dosing, 85, kg, 02/16/23 10:45:00 EST, Weight Dosing Start Date: 04/08/23 Status: Ordered potassium chloride 10 meq extended release oral capsule (9 sources) take 1 capsule by mouth in the morning potassium chloride ER (Micro-K) 10 MEQ ER capsule Take 10 mEq by mouth in the morning and 10 mEq before bedtime. Do not crush or chew. . Active potassium citrate 10 meq extended release oral tablet (17 sources) Start: 04-30-2023 take 1 tablet by mouth twice daily at mealtime Potassium Citrate Active 1 TAB PO Twice daily April 30, 2023 1:00am FreeTextSi tablet with meals Orally Twice a day; Note: Source Status: Taking; Refills: 1; Qty: 180 Tablet; Provider: Sonia Ferrer Start: 04-17-2022 take 1 tablet by jace every twelve hours Potassium Citrate ER 10 MEQ (1080 MG) 1 tablet with meals Orally Twice a day Apr, Active psyllium 3400 mg powder for oral suspension (9 sources) take 3 g by mouth in the morning psyllium (Metamucil) 58.6 % powder Take 3 g of fiber by mouth in the morning and 3 g of fiber before bedtime. Active sulfamethoxazole 800 mg / trimethoprim 160 mg oral tablet (3 sources) Dihydrofolate Reductase Inhibitor Antibacterial, Sulfonamide Antimicrobial Start: 09-11-19 take 1 tablet by mouth twice daily Sulfamethoxazole-T rimethoprim Active 1 TAB PO Twice daily 10 September 11, 2023 12:00am tamsulosin hydrochloride 0.4 mg oral capsule (20 sources) alpha-Adrenergic Cyrus Start: 11-18-19 End: 04-30-19 take 1 capsule by mouth once daily Tamsulosin Active MG PO April 30, 2023 1:00am FreeTextSig: TAKE 1 CAPSULE BY MOUTH DAILY Oral; Note: Source Status: Taking; Refills: 5; Qty: 30 Each; Provider: GARRET NAJERA take 1 capsule by mo [facility] every twenty-four hours in the morning tamsulosin (Flomax) 0.4 MG 24 hr capsule Take 0.4 mg by mouth in the morning. Active Completed/Discontinued Medications Medication Drug Class(es) Dates Sig (Normalized) Sig (Original) amoxicillin 500 mg oral capsule (3 sources) Penicillin-class Antibacterial Start: 10-09-19 End: 10-14-19 Amoxicillin Discontinued 2000 MG PO As Directed October 09, 2023 12:00am October 14, 2023 9:55am ciprofloxacin 250 mg oral tablet (3 sources) Quinolone Antimicrobial Start: 02-17-20 take 1 tablet by mouth once daily Cipro 250 mg Tab 250 mg = 1 tab(s), Oral, Daily, Take 1 tablet the day before the procedure and 1 tablet after the procedure, # 2 tab(s), Refills(s) 0, Pharmacy: [id number], 177, cm, 02/16/23 10:45:00 EST, Height/Length Dosing, 85, kg, 02/16/23 10:45:00 EST, Weight Dosing Start Date: 02/16/23 Status: Ordered clopidogrel 75 mg oral tablet (9 sources) P2Y12 Platelet Inhibitor Start: 11-18-19 End: 07-23-19 take 1 tablet by mouth once daily Clopidogrel (Plavix) 75 mg tablet Discontinued 75 MG PO Daily November 18, 2019 12:00am July 22, 2021 12:22pm Fiber Laxative TABS (2 sources) Fiber Laxative T ABS USE DIRECTED. Quantity: 0 Refills: 0 Ordered: 09-Apr-2021 DO Active hydroCHLOROthiazide 12.5 mg oral capsule (20 sources) Thiazide Diuretic Start: 07-16-19 End: 04-30-19 take 12.5 mg by mouth once daily Hydrochlorothiazide Discontinued 12.5 MG PO Daily July 15, 2021 12:00am April 30, 2023 4:17pm Start: 04-02-2021 take 1 tablet by jace th once daily in the morning Hydrochlorothiazide Active 1 TAB PO Daily April 30, 2023 1:00am FreeTextSi tablet in the morning Orally Once a day; Note: Source Status: Refill; Refills: 3; Qty: 90 Tablet; Provider: Cecy Luna lisinopril 5 mg oral tablet (7 sources) Angiotensin Converting Enzyme Inhibitor Start: 11-18-2019 End: 07-15-2021 Lisinopril Discontinued TABLET November 18, 2019 12:00am July 15, 2021 2:11pm mirtazapine 7.5 mg oral tablet (3 sources) [...] Ordered: 09-Apr-2021 DO Active polyethylene glycol 3350 170982 mg / potassium chloride 2980 mg / sodium bicarbonate 6720 mg / sodium chloride 5840 mg / sodium sulfate 44614 mg powder for oral solution (2 sources) Osmotic Laxative Start: 12-21-2021 GaviLyte-C 240 GM Oral Solution Reconstituted Quantity: 4000 Refills: 0 Ordered: 21-Dec-2021 DO Start : 21-Dec-2021 Complete potassium bicarbonate 25 meq effervescent oral tablet (20 sources) Start: 02-02-2023 take 1 tablet by mouth twice daily Klor-Con/EF 25 mEq oral tablet, effervescent 25 mEq = 1 tab(s), Oral, BID, # 60 tab(s), Refills(s) 11, Pharmacy: [facility] #[id number], 177, cm, 01/15/22 9:44:00 EDT, Height/Length [...] Discontinued 20 MEQ PO Twice daily November 18, 2019 12:00am April 30, 2023 4:17pm Problems Active Problems Problem Classification Problem Date Documented Date Episodic/Chronic Abdominal pain (6 sources) Abdominal pain 11-17-2019 Episodic Acute and unspecified renal failure (7 sources) Acute renal failure syndrome; Translations: [Acute kidney failure, unspecified] 12-13-2023 Episodic Acute cerebrovascular disease (20 sources) Cerebral infarction, unspecified; Translations: [Subdural hematoma] Onset: 3 Chronic Biliary tract disease (4 [...] Onset: 2 Chronic Fluid and electrolyte disorders (14 sources) Metabolic acidosis; Translations: [Metabolic acidosis] 02-25-2023 Episodic Genitourinary symptoms and ill-defined conditions (20 sources) Blood in urine; Translations: [Delay when starting to pass urine] Onset: 4 12-29-2019 Episodic Hyperplasia of prostate (20 sources) Benign prostatic hyperplasia with lower urinary tract symptoms; Translations: [Benign prostatic hyperplasia without lower urinary tract symptoms] Onset: 2 Chronic Hypertension with complications and secondary hypertension (20 sources) Chronic kidney disease due to hypertension; Translations: [Hypertensive chronic kidney disease with stage 1 through stage 4 chronic kidney disease, or unspecified chronic kidney disease] Onset: 2 Resolved: 2 Chronic Inflammatory conditions of male genital organs (2 sources) Epididymo-orchitis; Translations: [Other orchitis, epididymitis, and epididymo-orchitis, without mention of abscess] 06-17-2023 Episodic Intestinal obstruction without hernia (4 sources) Intestinal obstruction; Translations: [Partial intestinal obstruction, unspecified as to cause] Episodic Malaise and fatigue (4 sources) Fatigue; Translations: [Other fatigue] Episodic Mood disorders (4 sources) Mild recurrent major depression; Translations: [Major depressive disorder, recurrent, mild] Chronic Mycoses (2 sources) Onychomycosis due to dermatophyte ; Translations: [Tinea unguium] 02-08-2024 Episodic Nutritional deficiencies (20 sources) Vitamin D deficiency; Translations: [Vitamin D deficiency, unspecified] Onset: 2 Resolved: 2 Chronic Occlusion or stenosis of precerebral arteries (20 sources) Bilateral stenosis of carotid arteries; Translations: [Occlusion and stenosis of bilateral carotid arteries] Onset: 9 01-26-2023 Chronic Other aftercare (4 sources) Long-term current use of drug therapy; Translations: [Other manager of maintenance (current) drug therapy] Episodic Other and ill-defined cerebrovascular disease (4 sources) Cerebral atherosclerosis; Translations: [Cerebral atherosclerosis] 09-09-2023 Chronic Other and ill-defined cerebrovascular disease (3 sources) Cerebral atherosclerosis; Translations: [Cerebral atherosclerosis] 10-14-2023 Chronic Other circulatory disease (11 sources) Disorder of carotid artery; Translations: [Disorder of arteries and arterioles, unspecified] Onset: 4 09-26-2023 Chronic Other circulatory disease (4 sources) H/O: cardiovascular disease; Translations: [Personal history of other diseases of the circulatory system] Episodic Other circulatory disease (4 sources) History of cerebrovascular accident without residual deficits; Translations: [Personal history of transient ischemic attack (TIA), and cerebral infarction without residual deficits] Episodic Other connective tissue disease (4 sources) Pain in toe; Translations: [Pain in right toe(s)] 02-08-2024 Episodic Other diseases of kidney and ureters (7 sources) Secondary hyperparathyroidism; Translations: [Secondary hyperparathyroidism of renal origin] 04-30-2023 Chronic Other diseases of kidney and ureters (3 sources) Secondary hyperparathyroidism of renal origin; Translations: [Secondary hyperparathyroidism (of renal origin)] 04-30-2023 Chronic Other diseases of kidney and ureters (7 sources) Hydronephrosis; Translations: [Unspecified hydronephrosis] 02-25-2023 Episodic Other diseases of kidney and ureters (1 source) Urinary tract obstruction; Translations: [Other obstructive and reflux uropathy] Onset: Episodic Other ear and sense organ disorders (4 sources) Sensorineural hearing loss, bilateral; Translations: [Sensorineural hearing loss, bilateral] Chronic Other hereditary and degenerative nervous system conditions (4 sources) Mild cognitive disorder ; Translations: [Mild cognitive impairment, so stated] Chronic Other nervous system disorders (15 sources) Chronic pain; Translations: [Other chronic pain] Chronic Other nervous system disorders (2 sources) Impaired cognition; Translations: [Other symptoms and signs involving cognitive functions and awareness] 01-25-2024 Episodic Other non-traumatic joint disorders (15 sources) Hip [...] Episodic Other nutritional; endocrine; and metabolic disorders (7 sources) Hyperuricemia; Translations: [Hyperuricemia without signs of inflammatory arthritis and tophaceous disease] 04-30-2023 Episodic Other nutritional; endocrine; and metabolic disorders (3 sources) Hyperuricemia without signs of inflammatory arthritis and tophaceous disease; Translations: [Other abnormal blood chemistry] 04-30-2023 Episodic Other screening for suspected conditions (not mental disorders or infectious disease) (3 sources) Electrocardiogram abnormal; Translations: [Nonspecific abnormal electrocardiogram [ECG] [EKG]] Onset: 3 01-23-2023 Episodic Other skin disorders (2 sources) Dystrophia unguium; Translations: [Nail dystrophy] 02-08-2024 Episodic Parkinson`s disease (9 sources) Parkinsonism; 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 Peripheral and visceral atherosclerosis (8 sources) Peripheral vascular disease, unspecified; Translations: [Peripheral arterial disease] Onset: 4 09-09-2023 Chronic Residual codes; unclassified (2 sources) Presence of other specified devices; Translations: [Other postprocedural status] 05-08-2023 Episodic Screening and history of mental health and substance abuse codes (2 sources) Ex-smoker; Translations: [Personal history of tobacco use] Episodic Spondylosis; intervertebral disc disorders; other back problems (9 sources) Spondylosis without myelopathy or radiculopathy, lumbar region; Translations: [Cervical spondylosis without myelopathy] Onset: 2 Chronic Spondylosis; intervertebral disc disorders; other back problems (12 sources) Backache; Translations: [Low back pain] 12-01-2019 Episodic Transient cerebral ischemia (14 sources) Transient cerebral ischemia; Translations: [Unspecified transient cerebral ischemia] Onset: 3 01-26-2023 Chronic Unclassified (15 sources) Parkinson's disease; Translations: [Parkinson's disease] Onset: 4 09-09-2023 Chronic Unclassified (1 source) Unknown / UNK(Unknown) [...] consciousness status unknown, initial encounter] Onset: 2 Unclassified (2 sources) Finding of sensation of bladder 11-17-2023 Urinary tract infections (4 sources) Chronic cystitis; Translations: [Other chronic cystitis without hematuria] Onset: 4 Chronic Urinary tract infections (14 sources) Urinary tract infection, site not specified; Translations: [Urinary tract infectious disease] Onset: 2 Episodic Viral infection (4 sources) Disease caused by 2019-nCoV; Translations: [COVID-19] 12-01-2023 Episodic Past or Other Problems Problem Classification [...] 07-29-2021 Episodic Other aftercare (1 source) Other long-term (current) drug therapy; Translations: [OTH INSTITUTIONAL RESEARCH COORDINATOR CURRENT DRUG THERAPY] Onset: 12-23-2021 Episodic Other aftercare (1 source) longterm (current) use of aspirin; Translations: [INSTITUTIONAL RESEARCH COORDINATOR CURRENT USE OF ASPIRIN] Onset: 12-23-2021 Episodic Other gastrointestinal disorders (4 sources) Constipation, unspecified; Translations: [CONSTIPATION UNSPECIFIED] Onset: 12-21-2021 Episodic Other nervous system disorders (9 sources) Ataxia; Translations: [Ataxia, unspecified] Onset: 09-26-2023 09-26-2023 Episodic Other non-epithelial cancer of skin (2 sources) 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; Translations: [Basal cell carcinoma of skin of nose] 11-25-2023 Episodic Residual codes; unclassified (2 sources) Other specified postprocedural states; Translations: [Other specified postprocedural states] Onset: 08-16-2019 Episodic Unclassified (1 source) Onset: 01-26-2023 01-26-2023 Results Test Name Value Interpretation Reference Range Facility Basophils Auto (Bld) [#/Vol] on 12-07-2023 Basophils (Bld) [#/Vol] 0.0 10 3/uL 0.0-0.1 [facility] Basophils/100 WBC Auto (Bld) on 12-07-2023 Basophils/100 WBC (Bld) 0.3 % 0.2-2.0 [facility] Eosinophils/100 WBC Auto (Bl d)on 12-07-2023 Eosinophils/100 WBC (Bld) 4.3 % 0.9-7.0 [facility] Erythrocyte distribution wid th Auto (RBC) [Ratio]on 12-07-2023 Erythrocyte distribution width (RBC) [Ratio] 13.5 % 11.0-15.0 [facility] Estimated glomerular filtrat ion rate (GFR) non- Americanon 12-07-2023 GFR/1.73 sq M.predicted among non-blacks MDRD (S/P/Bld) [Vol rate/Area] 49 mL/min/{1.73_m2} Low >=60 [facility] Globulin Calc (S) [Mass/Vol] on 12-07-2023 Globulin (S) [Mass/Vol] 3.1 g/dL [facility] Hematocrit Auto (Bld) [Volum e fraction]on 12-07-2023 Hematocrit (Bld) [Volume fraction] 38.5 % Low 42.0-54.0 [facility] Hemoglobin [Mass/volume] in Bloodon 12-07-2023 Hemoglobin (Bld) [Mass/Vol] 13.4 g/dL Low 14.0-18.0 [facility] Laboratory - Chemistry and C hemistry - challengeon 12-07-2023 Albumin [Mass/Vol] 3.9 g/dL 3.4-5.0 [facility] ALP [Catalytic activity/Vol] 101 U/L 46-116 [facility] ALT [Catalytic activity/Vol] 10 U/L Low 16-63 [facility] AST [Catalytic activity/Vol] 18 U/L 15-37 [facility] Bilirubin [Mass/Vol] 1.6 mg/dL High 0.2-1.0 [facility] Calcium [Mass/Vol] 9.7 mg/dL 8.5-10.1 [facility] Chloride [Moles/Vol] 96 mmol/L Low 98-107 [facility] CO2 [Moles/Vol] 31.1 mmol/L 21.0-32.0 [facility] Creatinine [Mass/Vol] 1.37 mg/dL High 0.70-1.30 [facility] GFR/1.73 sq M.predicted MDRD (S/P/Bld) [Vol rate/Area] 59 mL/min/{1.73_m2} Low >=60 [facility] Glucose [Mass/Vol] 118 mg/dL High 74-106 [facility] Magnesium [Mass/Vol] 2.2 mg/dL 1.8-2.4 [facility] Potassium [Moles/Vol] 3.5 mmol/L 3.5-5.1 [facility] Protein [Mass/Vol] 7.0 g/dL 6.4-8.2 [facility] Sodium [Moles/Vol] 134 mmol/L Low 136-145 [facility] Urea nitrogen [Mass/Vol] 24.0 mg/dL High 7.0-18.0 [facility] Urea nitrogen/Creatinine [Mass ratio] 17.5 mg/mg [facility] Laboratory - Hematology and Cell countson 12-07-2023 Immature granulocytes/100 WBC (Bld) 1.0 % High 0.0-0.5 [facility] Leukocytes [#/volume] correc krista for nucleated erythrocytes in Blood by Automated counon 12-07-2023 WBC corrected for nucl RBC Auto (Bld) [#/Vol] 6.0 10 3/uL 4.0-11.0 [facility] Lymphocytes Auto (Bld) [#/Vo l]on 12-07-2023 Lymphocytes (Bld) [#/Vol] 0.9 10 3/uL Low 1.2-3.8 [facility] Lymphocytes/100 WBC Auto (Bl d)on 12-07-2023 Lymphocytes/100 WBC (Bld) 14.3 % Low 20.5-60.0 [facility] MCH Auto (RBC) [Entitic mass ]on 12-07-2023 MCH (RBC) [Entitic mass] 29.8 pg 25.9-34.0 [facility] MCHC Auto (RBC) [Mass/Vol]on 12-07-2023 MCHC (RBC) [Mass/Vol] 34.8 g/dL 29.9-35.2 [facility] MCV Auto (RBC) [Entitic vol] on 12-07-2023 MCV (RBC) [Entitic vol] 85.6 fL 80.0-94.0 [facility] Monocytes Auto (Bld) [#/Vol] on 12-07-2023 Monocytes (Bld) [#/Vol] 0.5 10 3/uL 0.3-0.8 [facility] Monocytes/100 WBC Auto (Bld) on 12-07-2023 Monocytes/100 WBC (Bld) 8.0 % 1.7-12.0 [facility] Neutrophils Auto (Bld) [#/Vo l]on 12-07-2023 Neutrophils (Bld) [#/Vol] 4.3 10 3/uL 1.4-6.5 [facility] Neutrophils/100 WBC Auto (Bl d)on 12-07-2023 Neutrophils/100 WBC (Bld) 72.1 % 43.0-75.0 [facility] No Panel Informationon 12-06 Eosinophils # (Auto) 0.3 10 3/uL 0.0-0.7 [facility] Immature Granulocyte # (Auto) 0.06 10 3/uL High 0.00-0.03 [facility] Platelet mean volume Auto (B ld) [Entitic vol]on 12-07-2023 Platelet mean volume (Bld) [Entitic vol] 9.9 fL 9.5-13.5 [facility] Platelets Auto (Bld) [#/Vol] on 12-07-2023 Platelets (Bld) [#/Vol] 144 10 3/uL Low 150-450 [facility] RBC Auto (Bld) [#/Vol]on RBC (Bld) [#/Vol] 4.50 10 6/uL Low 4.70-6.10 [facility] Serum or plasma albumin/glob ulin mass ratioon 12-07-2023 Albumin/Globulin [Mass ratio] 1.3 {ratio} [facility] Serum or plasma anion gap de terminationon 12-07-2023 Anion gap [Moles/Vol] 10.4 mmol/L Fi [facility] C Urineon 11-20-2023 Bacteria identified Cx Nom (U) Microbiology PROCEDURE: Urine Culture [R1] SOURCE: U Random BODY SITE: COLLECTED DATE/TIME: 11/17/2023 13:13 EDT RECEIVED DATE/TIME: 11/17/2023 18:05 EDT START DATE/TIME: 11/17/2023 18:05 EDT FREE TEXT SOURCE: CONNOR Joel APRN, CONNOR Joel APRN, Priti Frances Priti X FINAL REPORTS Final Report [] Verified Date/Time: 11/20/2023 11:21 EDT >100,000 cfu/ml Enterobacter cloacae >100,000 cfu/ml Klebsiella (Enterobacter) aerogenes SUSCEPTIBILITY RESULTS LEGEND: S=Susceptible, N/R=Not Reported, Blank=Data not available, or drug not advisable or tested, I=Intermediate, ESBL=Extended spectrum beta-lactamase, R=Resistant, TFG=Thymidine-dependent strain, EDUARDO=Beta-lactamase positive, KENYA=mcg/m;(mg/L), S*=Predicted susceptible interp, R*=Predicted resistant interp Entclo Entaer Antibiotic KENYA Dilutn KENYA Interp KENYA Dilutn KENYA Interp Ampicillin >16 R >16 R Ampicillin/ <=8/4 R* >16/8 R Sulbactam Aztreonam <=4 S 8 S Cefazolin 16 R* >16 R Cefepime <=2 S <=2 S Ceftazidime <=1 S 8 I Ceftazidime/ <=8 S <=8 S Avibactam Ceftriaxone <=1 S >2 R Cefuroxime >16 R >16 R Ciprofloxacin <=0.25 S 1 R Ertapenem <=0.5 S <=0.5 S Gentamicin <=2 S <=2 S Levofloxacin <=0.5 S <=0.5 S Meropenem <=1 S <=1 S Nitrofurantoin <=32 S <=32 S Piperacillin/ <=8 S <=8 S Tazobactam Tetracycline <=4 S <=4 S Tobramycin <=2 S <=2 S Trimethoprim/ <=2/38 S <=2/38 S Sulfa Performing Locations R1: This test was performed at: [facility], [address] [place] [address], [phone] , [facility] Comment on above: Performed By: #### [id number] #### [facility] [address] [place] [address] No Panel Informationon 11-18 Consent obtained: michele baires (The rationale for Mohs as well as the risks, benefits, and alternatives. The risks of infection, scarring, bleeding, prolonged wound healing, incomplete removal, allergy to anesthesia or meds, nerve injury, and recurrence were addressed.) [place] Protocol: Procedure explained and questions answered to patient or proxy's satisfaction: Yes Test results available and properly labeled: Yes Pathology report reviewed: Yes Photo or diagram used for site identification: Yes Site/side marked: Yes Anticoagulation: Is the patient taking prescription anticoagulant and/or aspirin prescribed/recommended by a physician? Yes (81 mg ASA) Was the anticoagulation regimen changed prior to Mohs? No Anesthesia: Anesthesia method: local infiltration Local anesthetic: lidocaine 1% WITH epi and sodium bicarbonate Procedure Details: Biopsy accession number: [id number] Biopsy lab: [facility] Date of biopsy: 09/15/2023 Frozen section biopsy performed: Yes Specimen debulked: No Pre-Op diagnosis: basal cell carcinoma BCC subtype: nodular MohsAIQ Surgical site (if tumor spans multiple areas, please select predominant area): nose Surgery side: midline Surgical site (from skin exam): Nasal tip Pre-operative length (cm): 1 Pre-operative width (cm): 0.7 Indications for Mohs surgery: anatomic location where tissue conservation is critical Other indications for Mohs surgery: Central face Previously treated? No Mohs Appropriate Use Criteria Score: 8 Details of micrographic surgery: Mohs accession number: [id number] Micrographic Surgery Details: Post-operative length (cm): 1.5 Post-operative width (cm): 1.3 Number of Mohs stages: 2 Stage 1 Comments: The area was prepped with Betadine, draped in a sterile fashion, and infiltrated with local anesthetic. Sterile technique was used throughout the procedure. The marked area of clinical tumor with a small rim of clinically normal surrounding skin was removed using Mohs technique with beveled edges. Hash desai were placed for orientation of the specimen. Hemostasis was achieved with electrodessication. After hemostasis, the defect was measured and recorded, a temporary sterile dressing was placed over the wound, and the patient was escorted to the waiting area. The specimen was oriented, mapped, and if necessary, divided into sections. A Mohs map was prepared. The specimen was placed in a labeled ramon dish and was taken to the Mohs lab where it was chromacoded and processed. Mohs sections were prepared with serial tissue sections, stained, and evaluated by Dr. Harris for interpretation of deep and peripheral margins. The Mohs map was marked accordingly. Amount of lidocaine used: 1.5 cc Estimated blood loss: <1.0 cc Defect size: 1.4 x 1.0 cm Number of blocks per stage: 1 Number of positive blocks: 1 Tumor features identified on Mohs section: basal carcinoma Tumor features identified on Mohs section comment: nodular pattern Depth of defect after stage: dermis Stage 2 Comments: The patient returned to the procedure room, the dressing was remove, the tumor area was re-prepped and draped, and anesthesia was assessed and augmented as necessary. A layer of tissue around the positive margin(s) was removed, and the tissue was oriented, mapped, and processed in an identical fashion as for Stage 1. Hemostasis was achieved and dressing placed as in Stage 1. The patient was escorted to the waiting area. As with Stage 1, Mohs sections were prepared with serial tissue sections, stained, and evaluated by Dr. Harris for interpretation of deep and peripheral margins. The Mohs map was updated. Assistants: Sujata Campbell MA Amount of lidocaine used: 2.0 cc Estimated blood loss: <1.0 cc Defect size: 1.5 x 1.3 cm Number of blocks: 1 Number of positive blocks: 0. Tumor free margins were obtained and the Mohs procedure was considered complete. Tumor features identified on Mohs section: no tumor identified Depth of defect after stage comment: Deep dermis Patient tolerance of procedure: tolerated well, no immediate complications Reconstruction: Was the defect reconstructed?: No Antibiotics: Were antibiotics given on the day of surgery? Yes When were antibiotics given? post-operative [facility] No Panel InformationOrdered By: Gaby Villeda on 11-19-2023 [facility] Ambulatory Visit Summaryon 0 11-17-2023 Ambulatory Visit Summary Ambulatory Visit Summary TAMMI PATEL :1935 Visit Date:11/17/2023 Ambulatory Visit Instructions Your Diagnosis Feeling of incomplete bladder emptying Chronic cystitis BPH with urinary obstruction Hematuria Kidney stone Your Care Team Attending Physician - CONNOR Joel APRN, [place] X Primary Care Physician - WILDER SAM DO This Is Your Medications List Contact prescribing physician if questions or concerns aspirin (aspirin 81 mg oral tablet) atorvastatin (atorvastatin 40 mg Tab) carbidopa-levodopa (Sinemet 10 mg-100 mg Tab) ergocalciferol (ergocalciferol 50,000 intl units Cap) hydrochlorothiazide (hydrochlorothiazide 12.5 mg Tab) multivitamin with minerals (Ocuvite) potassium bicarbonate (Klor-Con/EF 25 mEq oral tablet, effervescent) tamsulosin (Flomax 0.4 mg Cap) Procedures Performed Urodynamics (04/28/2023), Cystoscopy (04/06/2023), ESWL of kidney [...] Schedule the Following Appointments Follow Up with Marycruz AHUJAN, [employer]CR[employer], Priti X, FAM, URL When: Comments: 6 months with PVR Where: Medications What How Much When Instructions Unchanged [...] Contact prescribing physician if questions or concerns Allergies No Known Allergies Problems Ongoing - Any problem that you are currently receiving treatment for. Abdominal pain Back pain BPH with urinary obstruction Chronic cystitis Feeling of incomplete bladder emptying Gross hematuria Hematuria Hesitancy of micturition Hypertension [...] choosing us for your care. Education Materials Dietary Guidelines to Help Prevent Kidney Stones Kidney stones are deposits of minerals and salts that form inside your kidneys. Your risk of developing kidney stones may be greater depending on your diet, your lifestyle, the medicines you take, and whether you have certain medical conditions. Most people can lower their risks of developing kidney stones by following these dietary guidelines. Your dietitian may give you more specific instructions depending on your overall health and the type of kidney stones you tend to develop. What are tips for following this plan? Reading food labels ? Choose foods with no salt added or low-salt labels. Limit your salt (sodium) intake to less than 1,500 mg a day. ? Choose foods with calcium for each meal and snack. Try to eat about 300 mg of calcium at each meal. Foods that contain 200?500 mg of calcium a serving include: ? 8 oz (237 mL) of milk, gtjnmye-oszqsmsgesoz-gvuvh milk, and calcium-fortifiedfruit juice. Calcium-fortified means that calcium has been added to these drinks. ? 8 oz (237 mL) of kefir, yogurt, and soy yogurt. ? 4 oz (114 g) of tofu. ? 1 oz (28 g) of cheese. ? 1 cup (150 g) of dried figs. ? 1 cup (91 g) of cooked broccoli. ? One 3 oz (85 g) can of sardines or mackerel. Most people need 1,000?1,500 mg of calcium a day. Talk to your dietitian about how much calcium is recommended for you. Shopping ? Buy plenty of fresh fruits and vegetables. Most people do not need to avoid fruits and vegetables, even if these foods con (more content not included)... Normal [facility] Reminderson 11-17-2023 Reminders Reminders From: Josefina Bartlett To: EU - Administrative; Sent: 11/17/2023 13:42:40 EDT Show up: 02/14/2024 13:42:00 EST Subject: Ambulatory Reminder Due Date/Time: 05/14/2024 13:42:00 EST Reminder/Recall Please call and schedule patient with AO for a 6m f/u with PVR, due back in early May 2024 Normal [facility] Urology Office/Clinic Noteon 11-17-2023 Urology Office/Clinic Note Urology Office/Clinic Note Chief Complaint PRW pt here due to decrease in urination. HPI Staff PRW pt here due to decrease in urination. Last seen IO 05/18/23, had catheter removed. Dx: feeling of incomplete bladder emptying, BPH with obstruction, hematuria, chronic cystitis, kidney stones. S/p Cysto/UroLift 10/21/16. S/p Cysto 04/06/23, had Dias placed at that time and was treated with doxycycline due to bladder appearing infected. S/p Urodynamics 04/28/23. *Effer K 25meq PRN and Tamsulosin 0.4mg qd. Dysuria: no Incomplete bladder emptying: no, PVR 100mL Hematuria: no Frequency: every 2 hours Urgency: no Nocturia: 2x's Stream: weak stream Post void dripping: no Wearing pads/ Depends: no Urge incontinence: no Stress incontinence: no Incontinence without Sensory Awareness: no Abdominal pain: no Flank pain: no History of Present Illness I have reviewed and verified the staff HPI to be accurate for this encounter. Portions of this record may have been created with voice recognition artificial intelligence software, specifically [employer], [employer] and or [employer]. Substitutions may have occurred due to the inherent limitations of voice recognition and artificial intelligence software. Review of Systems PHQ Score Initial Depression Screen Score: 0 SCORE Physical Exam Vitals & Measurements HT: 70 in HT: 177 cm WT: 85 kg WT: 187 lb BMI: 27.13 General: Well developed, well nourished, in no acute distress. Patient is extremely hard of hearing, here with today who does assist in providing much of his history. Assessment/Plan 1. Feeling of incomplete bladder emptying (R39.14: Feeling of incomplete bladder emptying) Dias placed after cystoscopy 04/06/2023 due to infected appearance of bladder. UDS 04/28/2023 showed open prostate, emptying fairly well. Average flow rate 3.6 mL/s, maximum flow rate of 6.4 mL/s, maximum detrusor pressure 53.5 cm H2O, PVR 77 mL PVR today 100 mL, patient feels empty at this time. He is performing timed voids every 1-1/2 to 2 hours at home. -Continue timed voids -f/u 6 mos w/ PVR 2. Chronic cystitis (N30.20: Other chronic cystitis without hematuria) UA today with small leukocytes, positive nitrites. Patient is asymptomatic at this time. Increase fluid intake, avoid bladder irritants ER for fever, NV, severe flank pain, inability to urinate -Send urine for culture, patient to call if he becomes symptomatic 3. BPH with urinary obstruction (N40.1: Benign prostatic hyperplasia with lower urinary tract symptoms) Cystoscopy 04/06/2023 -fairly wide open prostatic urethra. Copious amounts of white inflammatory debris throughout the bladder, snow globe effect. High-grade bladder damage. 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 UDS 04/28/2023 showed open prostate, emptying fairly well. Average flow rate 3.6 mL/s, maximum flow rate of 6.4 mL/s, maximum detrusor pressure 53.5 cm H2O, PVR 77 mL IPSS 8, moderate symptoms of BPH. Patient is currently pleased with his urinary symptoms at this time. Patient is currently taking tamsulosin 0.4 mg daily. Tolerating well without side effects. -Continue tamsulosin Ordered: [id number] Measure Post Void residual urine and/or bladder capacity by US- non-imaging Urnls Dip Stick Auto w/o Microscopy POC 35317 4. Hematuria (R31.9: Hematuria, unspecified) UA today without microscopic blood. Patient denies any gross hematuria since prior office visit. He did have a small amount of bloody drainage per the urethra after catheter removal. Patient/ know to contact office if experiencing gross hematuria. Ordered: Urine Culture 5. Kidney stone (N20.0: Calculus of kidney) hx of multiple lithotripsies KUB 01/10/22 [facility] - L renal stones, no measurements. KUB 02/10/23 [facility] - faint punctate renal stones over the L superior aspect. Taking Effer-K 25 mEq twice daily when he remembers. Tolerating well without side effects, but does not like the flavor. I reiterated use of Effer-K for stone prevention. Discussed generalized stone prevention - pt encouraged to increase fluid intake so that he/she producing 2.5L of urine daily. Add 1/4 cup of lemon juice to water throughout the day or can also drink sugar free lemonade or clear soda. Avoid dark benjamin. Restrict sodium intake. Restrict animal protein. -Continue Effer-K Follow-up With When Contact Information CONNOR Joel APRN, Priti Daniels, FAM, URL Additional Instructions: 6 months with PVR Patient Education Dietary Guidelines to Help Prevent Kidney Stones Hematuria, Adult Problem List/Past Medical History Ongoing Abdominal pain Back pain BPH with urinary obstruction Chronic cystitis Feeling of incomplete bladder emptying Gross hematuria Hematuria Hesitancy of micturition Hypertension Kidney stone Low back pain Nocturia Recurrent UTI Transient ischemic attack Urgency of urination UTI (urinary (more content not included)... Normal [facility] Comment on above: Result Comment: Elec tronically Signed By: CONNOR Joel APRN, Priti Daniels\.br\Date and Time Signed: 11/17/23 13:34 EDT Laboratory - Chemistry and C hemistry - challengeon 09-11-2023 Bilirubin Ql (U) Negative [facility] Glucose (U) [Mass/Vol] Negative [facility] Ketones Ql (U) Negative [facility] pH (U) 5 [pH] [facility] Specific gravity (U) [Rel density] 1.000 [facility] Urobilinogen (U) [Mass/Vol] 0.2 mg/dL [facility] Laboratory - Specimen inform ationon 09-11-2023 Appearance (U) cloudy [facility] Color (U) clotilde [facility] Laboratory - Urinalysison Leukocyte esterase Test strip Ql (U) +++ [facility] Nitrite Ql (U) Negative [facility] Protein Ql (U) Negative [facility] No Panel Informationon 09-10 Urine Occult Blood Negative [facility] Basophils Auto (Bld) [#/Vol] on 06-15-2023 Basophils (Bld) [#/Vol] 0.0 10 3/uL 0.0-0.1 [facility] Basophils/100 WBC Auto (Bld) on 06-15-2023 Basophils/100 WBC (Bld) 0.3 % 0.2-2.0 [facility] Eosinophils/100 WBC Auto (Bl d)on 06-15-2023 Eosinophils/100 WBC (Bld) 1.1 % 0.9-7.0 [facility] Erythrocyte distribution wid th Auto (RBC) [Ratio]on 06-15-2023 Erythrocyte distribution width (RBC) [Ratio] 13.6 % 11.0-15.0 [facility] Estimated glomerular filtrat ion rate (GFR) non- Americanon 06-15-2023 GFR/1.73 sq M.predicted among non-blacks MDRD (S/P/Bld) [Vol rate/Area] 49 mL/min/{1.73_m2} Low >=60 [facility] Globulin Calc (S) [Mass/Vol] on 06-15-2023 Globulin (S) [Mass/Vol] 3.2 g/dL [facility] Hematocrit Auto (Bld) [Volum e fraction]on 06-15-2023 Hematocrit (Bld) [Volume fraction] 33.9 % Low 42.0-54.0 [facility] Hemoglobin [Mass/volume] in Bloodon 06-15-2023 Hemoglobin (Bld) [Mass/Vol] 11.1 g/dL Low 14.0-18.0 [facility] Laboratory - Chemistry and C hemistry - challengeon 06-15-2023 Albumin [Mass/Vol] 2.8 g/dL Low 3.4-5.0 [facility] ALP [Catalytic activity/Vol] 79 U/L 46-116 [facility] ALT [Catalytic activity/Vol] 17 U/L 16-63 [facility] AST [Catalytic activity/Vol] 21 U/L 15-37 [facility] Bilirubin [Mass/Vol] 2.1 mg/dL High 0.2-1.0 [facility] Bilirubin.direct [Mass/Vol] 0.6 mg/dL High 0.0-0.2 [facility] Comment on above: RESULTS CALLED TO [Kenny FULTON/RN]@BY [email or web address] Kenny [email or web address] Calcium [Mass/Vol] 8.3 mg/dL Low 8.5-10.1 [facility] Chloride [Moles/Vol] 101 mmol/L 98-107 [facility] CO2 [Moles/Vol] 26.8 mmol/L 21.0-32.0 [facility] Creatinine [Mass/Vol] 1.37 mg/dL High 0.70-1.30 [facility] GFR/1.73 sq M.predicted MDRD (S/P/Bld) [Vol rate/Area] 60 mL/min/{1.73_m2} >=60 [facility] Glucose [Mass/Vol] 100 mg/dL 74-106 [facility] Potassium [Moles/Vol] 3.5 mmol/L 3.5-5.1 [facility] Protein [Mass/Vol] 6.0 g/dL Low 6.4-8.2 [facility] Sodium [Moles/Vol] 139 mmol/L 136-145 [facility] Urea nitrogen [Mass/Vol] 25.0 mg/dL High 7.0-18.0 [facility] Urea nitrogen/Creatinine [Mass ratio] 18.2 mg/mg [facility] Laboratory - Hematology and Cell countson 06-15-2023 Immature granulocytes/100 WBC (Bld) 0.4 % 0.0-0.5 [facility] Leukocytes [#/volume] correc krista for nucleated erythrocytes in Blood by Automated counon 06-15-2023 WBC corrected for nucl RBC Auto (Bld) [#/Vol] 9.8 10 3/uL 4.0-11.0 [facility] Lymphocytes Auto (Bld) [#/Vo l]on 06-15-2023 Lymphocytes (Bld) [#/Vol] 0.8 10 3/uL Low 1.2-3.8 [facility] Lymphocytes/100 WBC Auto (Bl d)on 06-15-2023 Lymphocytes/100 WBC (Bld) 8.1 % Low 20.5-60.0 [facility] MCH Auto (RBC) [Entitic mass ]on 06-15-2023 MCH (RBC) [Entitic mass] 29.1 pg 25.9-34.0 [facility] MCHC Auto (RBC) [Mass/Vol]on 06-15-2023 MCHC (RBC) [Mass/Vol] 32.7 g/dL 29.9-35.2 [facility] MCV Auto (RBC) [Entitic vol] on 06-15-2023 MCV (RBC) [Entitic vol] 89.0 fL 80.0-94.0 [facility] Monocytes Auto (Bld) [#/Vol] on 06-15-2023 Monocytes (Bld) [#/Vol] 0.9 10 3/uL High 0.3-0.8 [facility] Monocytes/100 WBC Auto (Bld) on 06-15-2023 Monocytes/100 WBC (Bld) 9.5 % 1.7-12.0 [facility] Neutrophils Auto (Bld) [#/Vo l]on 06-15-2023 Neutrophils (Bld) [#/Vol] 7.9 10 3/uL High 1.4-6.5 [facility] Neutrophils/100 WBC Auto (Bl d)on 06-15-2023 Neutrophils/100 WBC (Bld) 80.6 % High 43.0-75.0 [facility] No Panel Informationon 06-14 Eosinophils # (Auto) 0.1 10 3/uL 0.0-0.7 [facility] Immature Granulocyte # (Auto) 0.04 10 3/uL High 0.00-0.03 [facility] Platelet mean volume Auto (B ld) [Entitic vol]on 06-15-2023 Platelet mean volume (Bld) [Entitic vol] 10.2 fL 9.5-13.5 [facility] Platelets Auto (Bld) [#/Vol] on 06-15-2023 Platelets (Bld) [#/Vol] 111 10 3/uL Low 150-450 [facility] RBC Auto (Bld) [#/Vol]on RBC (Bld) [#/Vol] 3.81 10 6/uL Low 4.70-6.10 [facility] Serum or plasma albumin/glob ulin mass ratioon 06-15-2023 Albumin/Globulin [Mass ratio] 0.9 {ratio} [facility] Serum or plasma anion gap de terminationon 06-15-2023 Anion gap [Moles/Vol] 14.7 mmol/L [facility] Automated epithelial cells c ount in urine sediment (number/area)on 06-14-2023 Epithelial cells Auto (Urine sed) [#/Area] NONE SEEN #/LPF NONE/RARE [facility] Automated urine specific gra vity by refractometryon 06-14-2023 Specific gravity Refractometry automated (U) [Rel density] 1.015 1.005-1.02 5 [facility] Bacteria [Presence] in Urine by Automatedon 06-14-2023 Bacteria Auto Ql (U) MODERATE #/HPF Abnormal NONE SEEN [facility] Basophils Auto (Bld) [#/Vol] on 06-14-2023 Basophils (Bld) [#/Vol] 0.0 10 3/uL 0.0-0.1 [facility] Basophils/100 WBC Auto (Bld) on 06-14-2023 Basophils/100 WBC (Bld) 0.2 % 0.2-2.0 [facility] Bilirubin Auto test strip (U ) [Mass/Vol]on 06-14-2023 Bilirubin (U) [Mass/Vol] Negative NEGATIVE [facility] Casts typing in urine sedime nt by light microscopyon 06-14-2023 Casts LM Nom (Urine sed) NONE SEEN #/LPF NONE SEEN [facility] Color Auto (U)on 06-14-2023 Color (U) LT. YELLOW YELLOW [facility] Eosinophils/100 WBC Auto (Bl d)on 06-14-2023 Eosinophils/100 WBC (Bld) 0.4 % Low 0.9-7.0 [facility] Erythrocyte distribution wid th Auto (RBC) [Ratio]on 06-14-2023 Erythrocyte distribution width (RBC) [Ratio] 13.9 % 11.0-15.0 [facility] Estimated glomerular filtrat ion rate (GFR) non- Americanon 06-14-2023 GFR/1.73 sq M.predicted among non-blacks MDRD (S/P/Bld) [Vol rate/Area] 41 mL/min/{1.73_m2} Low >=60 [facility] Globulin Calc (S) [Mass/Vol] on 06-14-2023 Globulin (S) [Mass/Vol] 3.4 g/dL [facility] Glucose [Mass/volume] in Uri ne by Test stripon 06-14-2023 Glucose Test strip (U) [Mass/Vol] Negative NEGATIVE [facility] Hematocrit Auto (Bld) [Volum e fraction]on 06-14-2023 Hematocrit (Bld) [Volume fraction] 37.3 % Low 42.0-54.0 [facility] Hemoglobin [Mass/volume] in Bloodon 06-14-2023 Hemoglobin (Bld) [Mass/Vol] 12.5 g/dL Low 14.0-18.0 [facility] Ketones Auto test strip (U) [Mass/Vol]on 06-14-2023 Ketones (U) [Mass/Vol] Negative NEGATIVE [facility] - challengeon 06-14-2023 Lactate [Moles/Vol] 1.7 mmol/L 0.4-2.0 [facility] Albumin [Mass/Vol] 3.4 g/dL 3.4-5.0 [facility] ALP [Catalytic activity/Vol] 88 U/L 46-116 [facility] ALT [Catalytic activity/Vol] U/L Low 16-63 [facility] AST [Catalytic activity/Vol] 19 U/L 15-37 [facility] Bilirubin [Mass/Vol] 2.9 mg/dL High 0.2-1.0 [facility] Calcium [Mass/Vol] 9.0 mg/dL 8.5-10.1 [facility] Chloride [Moles/Vol] 100 mmol/L 98-107 [facility] CO2 [Moles/Vol] 27.5 mmol/L 21.0-32.0 [facility] Creatinine [Mass/Vol] 1.59 mg/dL High 0.70-1.30 [facility] GFR/1.73 sq M.predicted MDRD (S/P/Bld) [Vol rate/Area] 50 mL/min/{1.73_m2} Low >=60 [facility] Glucose [Mass/Vol] 136 mg/dL High 74-106 [facility] Potassium [Moles/Vol] 4.0 mmol/L 3.5-5.1 [facility] Protein [Mass/Vol] 6.8 g/dL 6.4-8.2 [facility] Sodium [Moles/Vol] 137 mmol/L 136-145 [facility] TSH Qn 0.547 m[IU]/L 0.358-3.74 0 [facility] Urea nitrogen [Mass/Vol] 29.0 mg/dL High 7.0-18.0 [facility] Urea nitrogen/Creatinine [Mass ratio] 18.2 mg/mg [facility] - Hematology and Cell countson 06-14-2023 Immature granulocytes/100 WBC (Bld) 0.3 % 0.0-0.5 [facility] - Microbiology an d Antimicrobial susceptibilityOrdered By: Wilder Sam on 06-14-2023 Bacteria identified Cx Nom (U) [facility] Leukocytes [#/area] in Urine sediment by Automated counton 06-14-2023 WBC Auto (Urine sed) [#/Area] 2-5 #/HPF Abnormal 0-2 [facility] Leukocytes [#/area] in Urine sediment by Microscopy high power fieldon 06-14-2023 WBC LM.HPF (Urine sed) [#/Area] 5-10 #/HPF Abnormal NONE SEEN [facility] Leukocytes [#/volume] correc krista for nucleated erythrocytes in Blood by Automated counon 06-14-2023 WBC corrected for nucl RBC Auto (Bld) [#/Vol] 12.2 10 3/uL High 4.0-11.0 [facility] Lymphocytes Auto (Bld) [#/Vo l]on 06-14-2023 Lymphocytes (Bld) [#/Vol] 0.7 10 3/uL Low 1.2-3.8 [facility] Lymphocytes/100 WBC Auto (Bl d)on 06-14-2023 Lymphocytes/100 WBC (Bld) 5.8 % Low 20.5-60.0 [facility] MCH Auto (RBC) [Entitic mass ]on 06-14-2023 MCH (RBC) [Entitic mass] 29.8 pg 25.9-34.0 [facility] MCHC Auto (RBC) [Mass/Vol]on 06-14-2023 MCHC (RBC) [Mass/Vol] 33.5 g/dL 29.9-35.2 [facility] MCV Auto (RBC) [Entitic vol] on 06-14-2023 MCV (RBC) [Entitic vol] 89.0 fL 80.0-94.0 [facility] Monocytes Auto (Bld) [#/Vol] on 06-14-2023 Monocytes (Bld) [#/Vol] 1.3 10 3/uL High 0.3-0.8 [facility] Monocytes/100 WBC Auto (Bld) on 06-14-2023 Monocytes/100 WBC (Bld) 10.6 % 1.7-12.0 [facility] Mucus LM Ql (Urine sed)on Mucus Ql (Urine sed) NONE SEEN NONE SEEN [facility] Neutrophils Auto (Bld) [#/Vo l]on 06-14-2023 Neutrophils (Bld) [#/Vol] 10.1 10 3/uL High 1.4-6.5 [facility] Neutrophils/100 WBC Auto (Bl d)on 06-14-2023 Neutrophils/100 WBC (Bld) 82.7 % High 43.0-75.0 [facility] No Panel Informationon 06-13 Urine Culture Reflexed YES [facility] Urine Microscopic Review YES [facility] Venous Blood Partial Pressure CO2 37.1 mm[Hg] Low 40.0-52.0 [facility] Venous Blood pH 7.473 High 7.330-7.43 0 [facility] Eosinophils # (Auto) 0.1 10 3/uL 0.0-0.7 [facility] Immature Granulocyte # (Auto) 0.04 10 3/uL High 0.00-0.03 [facility] Troponin I High Sensitivity 12.9 pg/mL 4.0-76.1 [facility] Comment on above: CUT-OFF POINTS HAVE BEEN ESTABLISHED BASED ON THE FOURTHUNIVERSAL DEFINITION OF MYOCARDIAL INFARCTION. THE UPPERREFERENCE LIMIT (URL) OF TROPONIN, DEFINED THE 99THPERCENTILE OF cTnI DISTRIBUTION IN A REFERENCE POPULATION,HAS BEEN CONFIRMED THE DECISION THRESHOLD FOR MIDIAGNOSIS.99TH PERCENTILE = 76.2 PG/MLNOTE: HIGH-SENSITIVITY TROPONIN ASSAY IS NOT INTENDED TO BEUSED IN ISOLATION BUT SHOULD BE INTERPRETED IN CONJUNCTIONWITH OTHER DIAGNOSTIC AND CLINICAL INFORMATION. No Panel InformationOrdered By: Wilder Sam on 06-14-2023 Blood Culture 2 [facility] Blood Culture 1 [facility] Platelet mean volume Auto (B ld) [Entitic vol]on 06-14-2023 Platelet mean volume (Bld) [Entitic vol] 10.0 fL 9.5-13.5 [facility] Platelets Auto (Bld) [#/Vol] on 06-14-2023 Platelets (Bld) [#/Vol] 136 10 3/uL Low 150-450 [facility] Protein Auto test strip (U) [Mass/Vol]on 06-14-2023 Protein (U) [Mass/Vol] Negative NEG/TRACE Fi [facility] RBC Auto (Bld) [#/Vol]on RBC (Bld) [#/Vol] 4.19 10 6/uL Low 4.70-6.10 [facility] Serum or plasma albumin/glob ulin mass ratioon 06-14-2023 Albumin/Globulin [Mass ratio] 1.0 {ratio} [facility] Serum or plasma anion gap de terminationon 06-14-2023 Anion gap [Moles/Vol] 13.5 mmol/L Fi [facility] Serum procalcitonin measurem enton 06-14-2023 Procalcitonin [Mass/Vol] 0.15 ng/mL 0.00-0.50 [facility] Specific gravity Auto test s trip (U) [Rel density]on 06-14-2023 Specific gravity (U) [Rel density] CLEAR CLEAR [facility] Urine hemoglobin detection b y automated test stripon 06-14-2023 Hemoglobin Auto test strip Ql (U) Negative NEGATIVE [facility] Urine nitrite detection by a utomated test stripon 06-14-2023 Nitrite Auto test strip Ql (U) SMALL Abnormal NEGATIVE [facility] Nitrite Auto test strip Ql (U) Positive Abnormal NEGATIVE [facility] Urine sediment crystal ident ification by light microscopyon 06-14-2023 Crystals LM Nom (Urine sed) None Seen #/HPF None Seen [facility] Urobilinogen Auto test strip (U) [Mass/Vol]on 06-14-2023 Urobilinogen Qn (U) 4.0 {Sofia'U}/dL Abnormal 0.2-1.0 [facility] pH Auto test strip (U)on pH (U) 6.5 [pH] 5.0-9.0 [facility] Consent for Procedure/Surger yon 06-02-2023 Consent for Procedure/Surgery [id number]#1.00TIFF Normal [facility] IntraOperative Documentson 0 06-02-2023 IntraOperative Documents [id number]#1.00TIFF Normal [facility] Lab Reportson 05-18-2023 Lab Reports [id number]#1.00TIFF Normal [facility] Patient Educationon 05-18-19 Patient Education Urology [...] Follow these instructions at home: ? Take kzzx-rih-ucsmshm and prescription medicines only as told by [...] the medicine (more content not included)... Normal [facility] Urology Office/Clinic Noteon 05-18-2023 Urology Office/Clinic Note Chief Complaint Discuss Uro's HPI Staff Pt last seen in our office 02/16/23 due to Recurrent UTI, BPH & Kidny Stone. *Effer K 25meq BID. Also started on Keflex 250mg BID [id number] that day. S/P Cysto 04/06/23 *Catheter placed, dc'd home with 1wk Doxy therapy (per EMR messages- bladder looked like snow globe) Urodynamics completed 04/28/23 Catheter removed in our office today. Pt's is concerned as to why pt had catheter. 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 Pt did have a couple hematuria/dark urine [...] PVR scan Follow-up With When Contact Information CIARA SALAZAR, BARBIE Burns In 6 months [facility] [address], [place] [address] [phone] Additional Instructions: 6 mo fu with PVR scan Patient Education Benign Prostatic Hyperplasia IDaisy, personally scribed for Dr. Urbina on 05/18/2023 11:01:40. . Documentation recorded by the scriberum luna, accurately reflects the services(s) I performed [...] 0.4 mg= (more content not included)... Normal [facility] Comment on above: Result Comment: Elec [...] and pvr scan. -Take Keflex 250mg bid [id number]. Rx sent to [facility] in [place]. -Will schedule cystoscopy with PVR. The risks [...] URL [facility] [address], [place] [address] [phone] Additional Instructions: sched cysto Patient Education Cystoscopy [...] Use:. Cigarettes, H (more content not included)... [facility] Comment on above: Result Comment: Elec tronically Signed By: Daisy Meadows\kassy\Date and Time Signed: 04/30/23 14:08 EST IntraOperative Documentson 0 04-29-2023 IntraOperative Documents [id number]#1.00TIFF [facility] Consent for Procedure/Surger yon 04-28-2023 Consent for Procedure/Surgery [id number]#1.00TIFF [facility] Consent for Treatmenton 04-16 Consent for Treatment [id number]#1.00TIFF Normal [facility] ED Note-Physicianon 04-28-19 ED Note-Physician [id number]#1.00TIFF Normal [facility] IntraOperative Documentson 0 04-28-2023 IntraOperative Documents [id number]#1.00TIFF Normal [facility] Ambulatory Visit Summaryon 0 04-09-2023 Ambulatory [...] Follow-Up Appointments Thursday 11:00 AM EST Where: [facility] Surgical Services Medications What How Much [...] you for choosing us for your care. [facility] Operative Reporton Operative Report [id number]#1.00TIFF [facility] Consent for Procedure/Surger yon 02-20-2023 Consent for Procedure/Surgery [id number]#1.00TIFF [facility] RAD - MISCon 02-20-2023 RAD - MISC [id number]#1.00TIFF [facility] Ambulatory Visit Summaryon 1 04-19-2022 Ambulatory Visit Summary TAMMI PATEL :1935 Visit Date:02/16/2023 Ambulatory Visit Instructions Your Diagnosis Recurrent UTI BPH with urinary obstruction Kidney stone Tests Performed Urnls Dip Stick Auto w/o Microscopy POC 50158 Your Care Team Attending Physician - Jourdan [...] Following Appointments Follow Up with CIARA SALAZAR, Jourdan Anderson, BARBIE When: Where: [facility] [address] , [place] [address]- [phone] Medications What How Much When Instructions New cephalexin (Keflex 250 mg Cap) 1 Capsules By Mouth 2 times a day Duration: 10 Days Pickup at [facility] Unchanged aspirin (aspirin 81 mg oral [...] physician if questions or concerns Pharmacy Information [facility]: [address] [place], [place] [phone] Test Results Urnls Dip Stick Auto w/o Microscopy POC 97007 (02/16/2023) Bilirubin Urine Dipstick - Negative Blood Urine Dipstick - Trace-lysed Glucose Urine Dipstick - Negative Ketones Urine Dipstick - Trace - 5 mg/dl Leukocytes Urine Dipstick - 1+ Small Nitrite Urine Dipstick - Positive Protein Urine Dipstick - 1+ (30 mg/dl) Specific [place] Urine Dipstick - 1.025 Urine Appearance Urine [...] a uri (more content not included)... Normal [facility] Physician Orderon 01-13-2023 Physician Order [id number]#1.00TIFF Normal [facility] LIPID PROFILEon 07-16-2022 CHOL-HDL RATIO NORM SEE BELOW Normal [facility] Comment on above: Result Comment: 3.3 - 4.4 LOW RISK 4.4 - 7.1 AVERAGE RISK 7.1 - 11.0 MODERATE RISK >11.0 HIGH RISK Performed By: #### L IPID, AST, BMP #### [facility] [address] [address] [address] Anu Magdaleno Cholesterol [Mass/Vol] 105 mg/dL Normal <=200 [facility] Comment on above: Performed By: #### L IPID, AST, BMP #### [facility] [address] [address] [address] Anu Magdaleno Cholesterol in HDL [Mass/Vol] 47 mg/dL Normal 40-60 [facility] Comment on above: Performed By: #### L IPID, AST, BMP #### [facility] [address] [address] [address] Anu Magdaleno Cholesterol in LDL [Mass/Vol] 46.2 mg/dL Normal [facility] Comment on above: Performed By: #### L IPID, AST, BMP #### [facility] [address] [address] [address] Anu Magdaleno Cholesterol.total/Chol esterol in HDL [Mass ratio] 2.2 {ratio} Normal [facility] Comment on above: Performed By: #### L IPID, AST, BMP #### [facility] [address] [address] [address] Anu Magdaleno HDL NORMAL > or = 60 mg/dl - LO W CARDIOVASCULAR RISK <40 mg/dl - HIGH CARDIOVASCULAR RISK Normal [facility] Comment on above: Performed By: #### L IPID, AST, BMP #### [facility] [address] [address] [address] Anu Magdaleno LDL CALC NORMAL SEE BELOW Normal [facility] Comment on above: Result Comment: <100 mg/dl OPTIMAL 100 - 129 mg/dl NEAR OR ABOVE OPTIMAL 130 - 159 mg/dl BORDERLINE HIGH 160 - 189 mg/dl HIGH >190 mg/dl VERY HIGH Performed By: #### L IPID, AST, BMP #### [facility] [address] [address] [address] Anu Magdaleno Triglyceride [Mass/Vol] 59 mg/dL Normal <=150 [facility] Comment on above: Performed By: #### L IPID, AST, BMP #### [facility] [address] [place] [address] Dr. Anu Magdaleno VLDL CALC 11.8 mg/dL Normal [facility] Comment on above: Performed By: #### L IPID, AST, BMP #### [facility] [address] [place] [address] Dr. Anu Magdaleno PROF CHEM 8 (BAS METB)on Anion gap [Moles/Vol] 13.1 mmol/L Normal [facility] Comment on above: Performed By: #### F ERR, FETIBC, VITB12 #### [facility] [address] [place] [address] Dr. Anu Magdaleno Calcium [Mass/Vol] 9.2 mg/dL Normal 8.5-10.1 [facility] Comment on above: Performed By: #### F ERR, FETIBC, VITB12 #### [facility] [address] [address] [address] Anu Magdaleno Chloride [Moles/Vol] 102 mmol/L Normal 98-107 [facility] Comment on above: Performed By: #### F ERR, FETIBC, VITB12 #### [facility] [address] [place] [address] Dr. Anu Magdaleno CO2 [Moles/Vol] 28.3 mmol/L Normal 21.0-32.0 [facility] Comment on above: Performed By: #### F ERR, FETIBC, VITB12 #### [facility] [address] [place] [address] Dr. Anu Magdaleno Creatinine [Mass/Vol] 1.40 mg/dL Critically high 0.70-1.30 [facility] Comment on above: Performed By: #### F ERR, FETIBC, VITB12 #### [facility] [address] [place] [address] Dr. Anu Magdaleno EGFR-AF INDIAN 58 mL/min/1.73m2 Critically low >=60 [facility] Comment on above: Performed By: #### F ERR, FETIBC, VITB12 #### [facility] [address] [place] [address] Dr. Anu Magdaleno EGFR-NON AF INDIAN 48 mL/min/1.73m2 Critically low >=60 [facility] Comment on above: Performed By: #### F ERR, FETIBC, VITB12 #### [facility] [address] [place] [address] Dr. Anu Magdaleno Glucose [Mass/Vol] 124 mg/dL Critically high 74-106 [facility] Comment on above: Performed By: #### F ERR, FETIBC, VITB12 #### [facility] [address] [place] [address] Dr. Anu Magdaleno Potassium [Moles/Vol] 4.4 mmol/L Normal 3.5-5.1 [facility] Comment on above: Performed By: #### F ERR, FETIBC, VITB12 #### [facility] [address] [place] [address] Dr. Anu Magdaleno Sodium [Moles/Vol] 139 mmol/L Normal 136-145 [facility] Comment on above: Performed By: #### F ERR, FETIBC, VITB12 #### [facility] [address] [place] [address] Dr. Anu Magdaleno Urea nitrogen [Mass/Vol] 20.0 mg/dL Critically high 7.0-18.0 [facility] Comment on above: Performed By: #### F ERR, FETIBC, VITB12 #### [facility] [address] [address] [address] Anu Magdaleno Urea nitrogen/Creatinine [Mass ratio] 14.3 mg/mg Normal [facility] Comment on above: Performed By: #### F ERR, FETIBC, VITB12 #### [facility] [address] [address] [address] Anu Magdaleno SGOTon 07-16-2022 AST [Catalytic activity/Vol] 16 U/L Normal 15-37 [facility] Comment on above: Performed By: #### L IPID, AST, BMP #### [facility] [address] HEAD WO CONon [...] ASIA ESPINAL Date: 2022-03-26 09:12 Normal [facility] Office Visit (Cardiology)on 01-15-2022 Follow-up visit [...] Recorded: 15Jan2022 03:30PM Heart Rate68, L Radial Pexxrrrn790, RUE, Sitting Xqvhitbjr13, RUE, Sitting Height5 ft 10 in Pndjtt068 lb BMI Dqbjzolnzx88.26 kg/m2 BSA Calculated2.04 Tobacco Useb) No PHQ-2 [...] EST ( (more content not included)... Normal [facility] Screening.on 022 Adult depression screening assessment No [employer] [employer] DO Work Phone: Fall risk assessment b) One or more fall s in the last year [facility] [employer] DO Work Phone: Tobacco use status CPHS b) No [facility] [employer] DO Work Phone: XR KUB 1 VIEWon [...] by: VANI RIDLEY Date: 2022-01-10 17:59 Normal [facility] XR KUB_DECUB or ERECTon 10- XR KUB_DECUB or ERECT EXAMINATION: XR KU B_DECUB or ERECT HISTORY: Constipation COMPARISON: XR KUB 01/18/2021 FINDINGS: BOWEL GAS PATTERN: No abnormal dilation or deviation. Moderate amount of stool throughout the colon. CALCIFICATIONS: None significant. OTHER: Right upper quadrant surgical clips and lower pelvis surgical clips. Levocurvature of lumbar spine. IMPRESSION: 1. Moderate stool burden. No bowel obstruction. Electronically authenticated by: ASIA ESPINAL Date: 2021-12-21 11:40 Normal [facility] CBC AUTO DIFFon 10-30-2021 BASO # 0.0 103/ul Normal 0.0-0.1 [facility] Comment on above: Performed By: #### C BC #### [facility] [address] [place] [address] Dr. Anu Magdaleno Basophils/100 WBC (Bld) 0.7 % Normal 0.2-2.0 [facility] Comment on above: Performed By: #### C BC #### [facility] [address] [place] [address] Dr. Anu Magdaleno EO # 0.5 103/ul Normal 0.0-0.7 [facility] Comment on above: Performed By: #### C BC #### [facility] [address] [place] [address] Dr. Anu Magdaleno Eosinophils/100 WBC (Bld) 7.7 % Critically high 0.9-7.0 [facility] Comment on above: Performed By: #### C BC #### [facility] [address] [place] [address] Dr. Anu Magdaleno Erythrocyte distribution width (RBC) [Ratio] 13.7 % Normal 11.0-15.0 [facility] Comment on above: Performed By: #### C BC #### [facility] [address] [place] [address] Dr. Anu Magdaleno Hematocrit (Bld) [Volume fraction] 39.5 % Critically low 42.0-54.0 [facility] Comment on above: Performed By: #### C BC #### [facility] [address] [place] [address] Dr. Anu Magdaleno Hemoglobin (Bld) [Mass/Vol] 13.3 g/dL Critically low 14.0-18.0 [facility] Comment on above: Performed By: #### C BC #### [facility] [address] [place] [address] Dr. Anu Magdaleno IG # 0.02 10e3/ul Normal 0.00-0.03 [facility] Comment on above: Performed By: #### C BC #### [facility] [address] [place] [address] Dr. Anu Magdaleno IG % 0.3 % Normal 0.0-0.5 [facility] Comment on above: Performed By: #### C BC #### [facility] [address] [place] [address] Dr. Anu Magdaleno LYMPH # 1.1 103/ul Critically low 1.2-3.8 [facility] Comment on above: Performed By: #### C BC #### [facility] [address] [place] [address] Dr. Anu Magdaleno Lymphocytes/100 WBC (Bld) 18.4 % Critically low 20.5-60.0 [facility] Comment on above: Performed By: #### C BC #### [facility] [address] [place] [address] Dr. Anu Magdaleno MANUAL DIFF REQ NO Normal [facility] Comment on above: Performed By: #### C BC #### [facility] [address] [place] [address] Dr. Anu Magdaleno MCH (RBC) [Entitic mass] 30.0 pg Normal 25.9-34.0 [facility] Comment on above: Performed By: #### C BC #### [facility] [address] [place] [address] Dr. Anu Magdaleno MCHC (RBC) [Mass/Vol] 33.7 g/dL Normal 29.9-35.2 [facility] Comment on above: Performed By: #### C BC #### [facility] [address] [place] [address] Dr. Anu Magdaleno MCV (RBC) [Entitic vol] 89.2 fL Normal 80.0-94.0 [facility] Comment on above: Performed By: #### C BC #### [facility] [address] [place] [address] Dr. Anu Magdaleno MONO # 0.4 103/ul Normal 0.3-0.8 [facility] Comment on above: Performed By: #### C BC #### [facility] [address] [address] [address] Anu Magdaleno Monocytes/100 WBC (Bld) 7.4 % Normal 1.7-12.0 [facility] Comment on above: Performed By: #### C BC #### [facility] [address] [place] [address] Dr. Anu Magdaleno NEUT # 3.9 103/ul Normal 1.4-6.5 [facility] Comment on above: Performed By: #### C BC #### [facility] [address] [place] [address] Dr. Anu Magdaleno Neutrophils/100 WBC (Bld) 65.5 % Normal 43.0-75.0 [facility] Comment on above: Performed By: #### C BC #### [facility] [address] [place] [address] Dr. Anu Magdaleno Platelet mean volume (Bld) [Entitic vol] 9.5 fL Normal 9.5-13.5 [facility] Comment on above: Performed By: #### C BC #### [facility] [address] [place] [address] Dr. Anu Magdaleno PLT 121 103/ul Critically low 150-450 [facility] Comment on above: Performed By: #### C BC #### [facility] [address] [place] [address] Dr. Anu Magdaleno RBC 4.43 106/ul Critically low 4.70-6.10 [facility] Comment on above: Performed By: #### C BC #### [facility] [address] [place] [address] Dr. Anu Magdaleno WBC 6.0 103/ul Normal 4.0-11.0 [facility] Comment on above: Performed By: #### C BC #### [facility] [address] [place] [address] Dr. Anu Magdaleno FERRITINon 10-30-2021 Ferritin [Mass/Vol] 137.0 ng/mL Normal 26.0-388.0 [facility] Comment on above: Performed By: #### F ERR, FETIBC, VITB12 #### [facility] [address] [address] [address] Anu Magdaleno IRON AND TIBCon 10-30-2021 % SATURATION 21.8 % Normal [facility] Comment on above: Performed By: #### F ERR, FETIBC, VITB12 #### [facility] [address] [address] [address] Anu Magdaleno Iron [Mass/Vol] 67.0 ug/dL Normal 65.0-175.0 [facility] Comment on above: Performed By: #### F ERR, FETIBC, VITB12 #### [facility] [address] [place] [address] Dr. Anu Magdaleno TIBC DIRECT 307.0 ug/dL Normal 250.0-450. 0 [facility] Comment on above: Performed By: #### F ERR, FETIBC, VITB12 #### [facility] [address] [place] [address] Dr. Anu Magdaleno VITAMIN B12on 10-30-2021 Cobalamin (Vitamin B12) [Mass/Vol] 385.0 pg/mL Normal 193.0-986. 0 [facility] Comment on above: Performed By: #### F ERR, FETIBC, VITB12 #### [facility] [address] [place] [address] head/brain wo conon 08-26 CT head/brain wo [facility] [place] [address] CT Scan Report Signed Patient: Tammi Patel MR#: [id number] : 1935 Acct:[id number] Age/Sex: 85 / M ADM Date: 08/26/21 Loc: CT Room: Type: [facility] Attending Dr: Angel Cotton MD Ordering Provider: [...] Jericho Esparza M.D.08/26/2021 10:23 AM Dictation Location: [place] [address] Transcribed By: [facility] 08/26/21 1023 Dictated By: Jericho Esparza II, MD 08/26/21 1019 Signed By: 08/26/21 1023 [facility] CBC AUTO DIFFon 08-01-2021 BASO # 0.1 103/ul Normal 0.0-0.1 [facility] Comment on above: Performed By: #### C BC #### [facility] [address] [address] [address] Anu Magdaleno Basophils/100 WBC (Bld) 0.7 % Normal 0.2-2.0 [facility] Comment on above: Performed By: #### C BC #### [facility] [address] [address] [address] Anu Magdaleno EO # 0.3 103/ul Normal 0.0-0.7 [facility] Comment on above: Performed By: #### C BC #### [facility] [address] [place] [address] Dr. Anu Magdaleno Eosinophils/100 WBC (Bld) 3.4 % Normal 0.9-7.0 [facility] Comment on above: Performed By: #### C BC #### [facility] [address] [place] [address] Dr. Anu Magdaleno Erythrocyte distribution width (RBC) [Ratio] 13.5 % Normal 11.0-15.0 [facility] Comment on above: Performed By: #### C BC #### [facility] [address] [place] [address] Dr. Anu Magdaleno Hematocrit (Bld) [Volume fraction] 40.7 % Critically low 42.0-54.0 [facility] Comment on above: Performed By: #### C BC #### [facility] [address] [place] [address] Dr. Anu Magdaleno Hemoglobin (Bld) [Mass/Vol] 13.1 g/dL Critically low 14.0-18.0 [facility] Comment on above: Performed By: #### C BC #### [facility] [address] [place] [address] Dr. Anu Magdaleno IG # 0.05 10e3/ul Critically high 0.00-0.03 [facility] Comment on above: Performed By: #### C BC #### [facility] [address] [place] [address] Dr. Anu Magdaleno IG % 0.6 % Critically high 0.0-0.5 [facility] Comment on above: Performed By: #### C BC #### [facility] [address] [place] [address] Dr. Anu Magdaleno LYMPH # 0.8 103/ul Critically low 1.2-3.8 [facility] Comment on above: Performed By: #### C BC #### [facility] [address] [place] [address] Dr. Anu Magdaleno Lymphocytes/100 WBC (Bld) 9.6 % Critically low 20.5-60.0 [facility] Comment on above: Performed By: #### C BC #### [facility] [address] [place] [address] Dr. Anu Magdaleno MANUAL DIFF REQ NO Normal [facility] Comment on above: Performed By: #### C BC #### [facility] [address] [place] [address] Dr. Anu Magdaleno MCH (RBC) [Entitic mass] 29.0 pg Normal 25.9-34.0 [facility] Comment on above: Performed By: #### C BC #### [facility] [address] [place] [address] Dr. Anu Magdaleno MCHC (RBC) [Mass/Vol] 32.2 g/dL Normal 29.9-35.2 [facility] Comment on above: Performed By: #### C BC #### [facility] [address] [place] [address] Dr. Anu Magdaleno MCV (RBC) [Entitic vol] 90.0 fL Normal 80.0-94.0 [facility] Comment on above: Performed By: #### C BC #### [facility] [address] [place] [address] Dr. Anu Magdaleno MONO # 0.5 103/ul Normal 0.3-0.8 [facility] Comment on above: Performed By: #### C BC #### [facility] [address] [place] [address] Dr. Anu Magdaleno Monocytes/100 WBC (Bld) 6.4 % Normal 1.7-12.0 [facility] Comment on above: Performed By: #### C BC #### [facility] [address] [place] [address] Dr. Anu Magdaleno NEUT # 6.4 103/ul Normal 1.4-6.5 [facility] Comment on above: Performed By: #### C BC #### [facility] [address] [place] [address] Dr. Anu Magdaleno Neutrophils/100 WBC (Bld) 79.3 % Critically high 43.0-75.0 [facility] Comment on above: Performed By: #### C BC #### [facility] [address] [place] [address] Dr. Anu Magdaleno Platelet mean volume (Bld) [Entitic vol] 10.0 fL Normal 9.5-13.5 [facility] Comment on above: Performed By: #### C BC #### [facility] [address] [place] [address] Dr. Anu Magdaleno PLT 154 103/ul Normal 150-450 [facility] Comment on above: Performed By: #### C BC #### [facility] [address] [place] [address] Dr. Anu Magdaleno RBC 4.52 106/ul Critically low 4.70-6.10 [facility] Comment on above: Performed By: #### C BC #### [facility] [address] [place] [address] Dr. Anu Magdaleno WBC 8.0 103/ul Normal 4.0-11.0 [facility] Comment on above: Performed By: #### C BC #### [facility] [address] [place] [address] Dr. Anu Magdaleno LIPID PROFILEon 08-01-2021 CHOL-HDL RATIO NORM SEE BELOW Normal [facility] Comment on above: Result Comment: 3.3 - 4.4 LOW RISK 4.4 - 7.1 AVERAGE RISK 7.1 - 11.0 MODERATE RISK >11.0 HIGH RISK Performed By: #### F ERR, FETIBC, VITB12 #### [facility] [address] [place] [address] Dr. Anu Magdaleno Cholesterol [Mass/Vol] 102 mg/dL Normal <=200 [facility] Comment on above: Performed By: #### F ERR, FETIBC, VITB12 #### [facility] [address] [place] [address] Dr. Anu Magdaleno Cholesterol in HDL [Mass/Vol] 50 mg/dL Normal 40-60 [facility] Comment on above: Performed By: #### F ERR, FETIBC, VITB12 #### [facility] [address] [address] [address] Anu Magdaleno Cholesterol in LDL [Mass/Vol] 34.6 mg/dL Normal [facility] Comment on above: Performed By: #### F ERR, FETIBC, VITB12 #### [facility] [address] [address] [address] Anu Magdaleno Cholesterol.total/Chol esterol in HDL [Mass ratio] 2.0 {ratio} Normal [facility] Comment on above: Performed By: #### F ERR, FETIBC, VITB12 #### [facility] [address] [place] [address] Dr. Anu Magdaleno HDL NORMAL > or = 60 mg/dl - LO W CARDIOVASCULAR RISK <40 mg/dl - HIGH CARDIOVASCULAR RISK Normal [facility] Comment on above: Performed By: #### F ERR, FETIBC, VITB12 #### [facility] [address] [place] [address] Dr. Anu Magdaleno LDL CALC NORMAL SEE BELOW Normal [facility] Comment on above: Result Comment: <100 mg/dl OPTIMAL 100 - 129 mg/dl NEAR OR ABOVE OPTIMAL 130 - 159 mg/dl BORDERLINE HIGH 160 - 189 mg/dl HIGH >190 mg/dl VERY HIGH Performed By: #### F ERR, FETIBC, VITB12 #### [facility] [address] [address] [address] Anu Magdaleno Triglyceride [Mass/Vol] 87 mg/dL Normal <=150 [facility] Comment on above: Performed By: #### F ERR, FETIBC, VITB12 #### [facility] [address] [place] [address] Dr. Anu Magdaleno VLDL CALC 17.4 mg/dL Normal [facility] Comment on above: Performed By: #### F ERR, FETIBC, VITB12 #### [facility] [address] [place] [address] Dr. Anu Magdaleno PROF CHEM 8 (BAS METB)on Anion gap [Moles/Vol] 13.8 mmol/L Normal Th [facility] Comment on above: Performed By: #### F ERR, FETIBC, VITB12 #### [facility] [address] [place] [address] Dr. Anu Magdaleno Calcium [Mass/Vol] 9.0 mg/dL Normal 8.5-10.1 [facility] Comment on above: Performed By: #### F ERR, FETIBC, VITB12 #### [facility] [address] [place] [address] Dr. Anu Magdaleno Chloride [Moles/Vol] 100 mmol/L Normal 98-107 [facility] Comment on above: Performed By: #### F ERR, FETIBC, VITB12 #### [facility] [address] [place] [address] Dr. Anu Magdaleno CO2 [Moles/Vol] 28.4 mmol/L Normal 21.0-32.0 [facility] Comment on above: Performed By: #### F ERR, FETIBC, VITB12 #### [facility] [address] [place] [address] Dr. Anu Magdaleno Creatinine [Mass/Vol] 1.31 mg/dL Critically high 0.70-1.30 [facility] Comment on above: Performed By: #### F ERR, FETIBC, VITB12 #### [facility] [address] [place] [address] Dr. Anu Magdaleno EGFR-AF INDIAN >60 Normal >=60 [facility] Comment on above: Performed By: #### F ERR, FETIBC, VITB12 #### [facility] [address] [place] [address] Dr. Anu Magdaleno EGFR-NON AF INDIAN 52 mL/min/1.73m2 Critically low >=60 [facility] Comment on above: Performed By: #### F ERR, FETIBC, VITB12 #### [facility] [address] [place] [address] Dr. Anu Magdaleno Glucose [Mass/Vol] 118 mg/dL Critically high 74-106 T [facility] Comment on above: Performed By: #### F ERR, FETIBC, VITB12 #### [facility] [address] [address] [address] Anu Magdaleno Potassium [Moles/Vol] 4.2 mmol/L Normal 3.5-5.1 [facility] Comment on above: Performed By: #### F ERR, FETIBC, VITB12 #### [facility] [address] [address] [address] Anu Magdaleno Sodium [Moles/Vol] 138 mmol/L Normal 136-145 [facility] Comment on above: Performed By: #### F ERR, FETIBC, VITB12 #### [facility] [address] [place] [address] Dr. Anu Magdaleno Urea nitrogen [Mass/Vol] 21.0 mg/dL Critically high 7.0-18.0 [facility] Comment on above: Performed By: #### F ERR, FETIBC, VITB12 #### [facility] [address] [address] [address] Anu Magdaleno Urea nitrogen/Creatinine [Mass ratio] 16.0 mg/mg Normal [facility] Comment on above: Performed By: #### F ERR, FETIBC, VITB12 #### [facility] [address] [place] [address] Dr. Anu Magdaleno SGOTon 08-01-2021 AST [Catalytic activity/Vol] 13 U/L Critically low 15-37 [facility] Comment on above: Performed By: #### F ERR, FETIBC, VITB12 #### [facility] [address] [address] [address] Anu Magdaleno Basic Metabolic Panelon Calcium [Mass/Vol] 9.0 mg/dL Normal 8.2-10.2 [facility] Comment on above: Performed By: #### C BC, PT, PTT, BMP #### [facility] [address] [place] [address] [place] Chloride [Moles/Vol] 104 mmol/L Normal 95-114 [facility] Comment on above: Performed By: #### C BC, PT, PTT, BMP #### [address] CO2 [Moles/Vol] 23.8 mmol/L Normal 22.0-30.0 [facility] Comment on above: Performed By: #### C BC, PT, PTT, BMP #### [facility] [address] Creatinine [Mass/Vol] 1.26 mg/dL Normal 0.64-1.27 [facility] Comment on above: Performed By: #### C BC, PT, PTT, BMP #### [address] Creatinine Clr Calc Pharmacy 44.26 [facility] Comment on above: Result Comment: PERF ORMED BY: [place] [address] PATHOLOGIST [employer] FAVIO CANAS M.D. Performed By: #### C BC, PT, PTT, BMP #### [address] Estimated GFR ( Marzena > 60 [facility] Comment on above: Result Comment: GFR estimated reference range: According to KDOQI guidelines, <60 ml/min/1.73m2 is sufficient to diagnose a patient with chronic kidney disease. Performed By: #### C BC, PT, PTT, BMP #### [facility] [address] [place] [address] Estimated GFR (Non- Am 54 [facility] Comment on above: Performed By: #### C BC, PT, PTT, BMP #### [address] Glucose [Mass/Vol] 105 mg/dL High 70-100 [facility] Comment on above: Result Comment: [place] Glucose Reference Range is dependent on time and content of last meal. Glucose of more than 200 mg/dL in a nonstressed, ambulatory subject supports the diagnosis of Diabetes Mellitus. ADA recommended reference range Performed By: #### C BC, PT, PTT, BMP #### [facility] [address] Potassium [Moles/Vol] 4.2 mmol/L Normal 3.5-5.1 [facility] Comment on above: Performed By: #### C BC, PT, PTT, BMP #### [facility] [address] Sodium [Moles/Vol] 137 mmol/L Normal 136-146 [facility] Comment on above: Performed By: #### C BC, PT, PTT, BMP #### [facility] [address] Urea nitrogen [Mass/Vol] 22 mg/dL Normal 9-23 [facility] Comment on above: Performed By: #### C BC, PT, PTT, BMP #### [address] Coagulation Profileon 2021 aPTT Coag (Bld) [Time] 29.6 s Normal 25.1-36.5 [facility] Comment on above: Result Comment: PERF ORMED BY: [place] [address] PATHOLOGIST [employer] FAVIO CANAS M.D. Performed By: #### C BC, PT, PTT, BMP #### [facility] [address] [place] [address] INR Coag (PPP) [Relative time] 1.1 {INR} Normal [facility] Comment on above: Result Comment: INR [...] #### C BC, PT, PTT, BMP #### [address] PT Coag (PPP) [Time] 12.2 s Normal 9.0-12.9 [facility] Comment on above: Performed By: #### C BC, PT, PTT, BMP #### [address] Complete Blood Count Auto Di ffon 07-19-2021 Basophils (Bld) [#/Vol] 0.1 10*3/uL Normal 0.0-0.2 [facility] Comment on above: Result Comment: PERF ORMED BY: [place] [address] PATHOLOGIST [employer] FAVIO CANAS M.D. Performed By: #### C BC, PT, PTT, BMP #### [address] Basophils/100 WBC (Bld) 0.9 % Normal . [facility] Comment on above: Performed By: #### C BC, PT, PTT, BMP #### [address] Eosinophils (Bld) [#/Vol] 0.4 10*3/uL Normal 0.0-0.45 [facility] Comment on above: Performed By: #### C BC, PT, PTT, BMP #### [address] Eosinophils/100 WBC (Bld) 7.6 % Normal . [facility] Comment on above: Performed By: #### C BC, PT, PTT, BMP #### [address] Erythrocyte distribution width (RBC) [Ratio] 14.5 % Normal 12.0-14.8 [facility] Comment on above: Performed By: #### C BC, PT, PTT, BMP #### [address] Hematocrit (Bld) [Volume fraction] 37.6 % Low 38.8-50.0 [facility] Comment on above: Performed By: #### C BC, PT, PTT, BMP #### [address] [place] [address] [place] Hemoglobin (Bld) [Mass/Vol] 13.3 g/dL Normal 13.0-17.0 [facility] Comment on above: Performed By: #### C BC, PT, PTT, BMP #### [address] Lymphocytes (Bld) [#/Vol] 1.0 10*3/uL Normal 1.00-4.8 [facility] Comment on above: Performed By: #### C BC, PT, PTT, BMP #### [address] Lymphocytes/100 WBC (Bld) 17.4 % Normal . [facility] Comment on above: Performed By: #### C BC, PT, PTT, BMP #### [address] MCH (RBC) [Entitic mass] 30.1 pg Normal 27.5-35.2 [facility] Comment on above: Performed By: #### C BC, PT, PTT, BMP #### [address] MCV (RBC) [Entitic vol] 84.9 fL Normal 83.5-101 [facility] Comment on above: Performed By: #### C BC, PT, PTT, BMP #### [address] Mean Corpuscular HGB Conc 35.4 g/dL Normal 32.5-35.6 [facility] Comment on above: Performed By: #### C BC, PT, PTT, BMP #### [address] Monocytes (Bld) [#/Vol] 0.5 10*3/uL Normal 0.0-0.8 [facility] Comment on above: Performed By: #### C BC, PT, PTT, BMP #### [address] Monocytes/100 WBC (Bld) 9.6 % Normal . [facility] Comment on above: Performed By: #### C BC, PT, PTT, BMP #### [facility] [address] [place] [address] Neutrophils (Bld) [#/Vol] 3.5 10*3/uL Normal 1.8-7.7 [facility] Comment on above: Performed By: #### C BC, PT, PTT, BMP #### [address] Neutrophils/100 WBC (Bld) 64.5 % Normal . [facility] Comment on above: Performed By: #### C BC, PT, PTT, BMP #### [address] Nucleated RBC/100 WBC (Bld) [Ratio] 0.0 % Normal 0-0.5 [facility] Comment on above: Performed By: #### C BC, PT, PTT, BMP #### [address] Platelet mean volume (Bld) [Entitic vol] 8.2 fL Normal 6.6-10.1 [facility] Comment on above: Performed By: #### C BC, PT, PTT, BMP #### [place] [address] [place] Platelets (Bld) [#/Vol] 119 10*3/uL Low 150-450 [facility] Comment on above: Performed By: #### C BC, PT, PTT, BMP #### [place] [address] [place] RBC (Bld) [#/Vol] 4.43 10*6/uL Normal 3.90-5.60 [facility] Comment on above: Performed By: #### C BC, PT, PTT, BMP #### [place] [address] [place] WBC (Bld) [#/Vol] 5.5 10*3/uL Normal 4.5-11.0 [facility] Comment on above: Performed By: #### C BC, PT, PTT, BMP #### [address] [place] [address] [place] ABO/Rh Retypeon 07-18-2021 ABO/RH Recheck Result Positive Normal [facility] Comment on above: Result Comment: PERF ORMED BY: [place] [address] PATHOLOGIST [employer] FAVIO CANAS M.D. Type and Screenon 07-18-2021 ABO and Rh group Nom (Bld) Blood group O Rh(D) positive Normal [facility] Comment on above: Order Comment: Comme nt FOR SURGERY 07/19 Basic Metabolic Panelon Calcium [Mass/Vol] 8.8 mg/dL Normal 8.2-10.2 [facility] Comment on above: Performed By: #### C BC, PT, PTT, BMP #### [address] Chloride [Moles/Vol] 102 mmol/L Normal 95-114 [facility] Comment on above: Performed By: #### C BC, PT, PTT, BMP #### [address] CO2 [Moles/Vol] 23.7 mmol/L Normal 22.0-30.0 [facility] Comment on above: Performed By: #### C BC, PT, PTT, BMP #### [place] [address] [place] Creatinine [Mass/Vol] 1.33 mg/dL High 0.64-1.27 [facility] Comment on above: Performed By: #### C BC, PT, PTT, BMP #### [facility] [address] [place] [address] [place] Creatinine Clr Calc Pharmacy 45.37 [facility] Comment on above: Result Comment: PERF ORMED BY: [place] [address] PATHOLOGIST [employer] FAVIO CANAS M.D. Performed By: #### C BC, PT, PTT, BMP #### [address] Estimated GFR ( Marzena > 60 Normal [facility] Comment on above: Result Comment: GFR estimated reference range: According to KDOQI guidelines, <60 ml/min/1.73m2 is sufficient to diagnose a patient with chronic kidney disease. Performed By: #### C BC, PT, PTT, BMP #### [facility] [address] Estimated GFR (Non- Am 51 Normal [facility] Comment on above: Performed By: #### C BC, PT, PTT, BMP #### [facility] [address] Glucose [Mass/Vol] 98 mg/dL Normal 70-100 [facility] Comment on above: Result Comment: [place] Glucose Reference Range is dependent on time and content of last meal. Glucose of more than 200 mg/dL in a nonstressed, ambulatory subject supports the diagnosis of Diabetes Mellitus. ADA recommended reference range Performed By: #### C BC, PT, PTT, BMP #### [address] Potassium [Moles/Vol] 4.2 mmol/L Normal 3.5-5.1 [facility] Comment on above: Performed By: #### C BC, PT, PTT, BMP #### [address] Sodium [Moles/Vol] 136 mmol/L Normal 136-146 [facility] Comment on above: Performed By: #### C BC, PT, PTT, BMP #### [address] Urea nitrogen [Mass/Vol] 25 mg/dL High 9-23 [facility] Comment on above: Performed By: #### C BC, PT, PTT, BMP #### [address] head/brain wo lisaon 07-16 CT head/brain wo [facility] [place] [address] [place] [address] CT Scan Report Signed Patient: Tammi Patel MR#: [id number] : 1935 Acct:[id number] Age/Sex: 85 / M ADM Date: 07/15/21 Loc: 3T Room: [address] [place] [address] Type: ADM INOo Attending Dr: Jose Barber [...] Aleks Paredes M.D.07/16/2021 9:22 AM Dictation Location: [place] [address] Transcribed By: [facility] 07/16/21921 Dictated By: Aleks Paredes DO 07/16/21916 Signed By: 07/16/21921 [facility] Basic Metabolic Panelon Calcium [Mass/Vol] 9.1 mg/dL Normal 8.2-10.2 [facility] Comment on above: Performed By: #### C BC, PT, PTT, BMP #### [facility] [address] [place] [address] Chloride [Moles/Vol] 103 mmol/L Normal 95-114 [facility] Comment on above: Performed By: #### C BC, PT, PTT, BMP #### [facility] [address] CO2 [Moles/Vol] 25.7 mmol/L Normal 22.0-30.0 [facility] Comment on above: Performed By: #### C BC, PT, PTT, BMP #### [facility] [address] Creatinine [Mass/Vol] 1.40 mg/dL High 0.64-1.27 [facility] Comment on above: Performed By: #### C BC, PT, PTT, BMP #### [address] Creatinine Clr Calc Pharmacy 43.04 [facility] Comment on above: Result Comment: PERF ORMED BY: [place] [address] PATHOLOGIST [employer] AND [employer] FAVIO CANAS M.D. Performed By: #### C BC, PT, PTT, BMP #### [address] Estimated GFR ( Marzena 58 [facility] Comment on above: Result Comment: GFR estimated reference range: According to KDOQI guidelines, <60 ml/min/1.73m2 is sufficient to diagnose a patient with chronic kidney disease. Performed By: #### C BC, PT, PTT, BMP #### [address] Estimated GFR (Non- Am 48 [facility] Comment on above: Performed By: #### C BC, PT, PTT, BMP #### [address] Glucose [Mass/Vol] 119 mg/dL High 70-100 [facility] Comment on above: Result Comment: [place] Glucose Reference Range is dependent on time and content of last meal. Glucose of more than 200 mg/dL in a nonstressed, ambulatory subject supports the diagnosis of Diabetes Mellitus. ADA recommended reference range Performed By: #### C BC, PT, PTT, BMP #### [facility] [address] Potassium [Moles/Vol] 4.1 mmol/L Normal 3.5-5.1 [facility] Comment on above: Performed By: #### C BC, PT, PTT, BMP #### [facility] [address] [place] [id number] [facility] Sodium [Moles/Vol] 139 mmol/L Normal 136-146 [facility] Comment on above: Performed By: #### C BC, PT, PTT, BMP #### [facility] [address] Urea nitrogen [Mass/Vol] 24 mg/dL High 9-23 [facility] Comment on above: Performed By: #### C BC, PT, PTT, BMP #### [facility] [address] COVID-19 Antigenon 2 COVID-19 [facility] [...] developed and its performance characteristic determined by [employer] and validated at [facility]. This test has not been FDA [...] for SARS Antigen by TREY PERFORMED BY: [place] [address] PATHOLOGIST BEATER AND PULPER FEEDER FAVIO CANAS M.D. Normal [facility] Comment on above: Performed By: #### C BC, PT, PTT, BMP #### [address] [address] [facility] COVID[facility]19 [facility] SARS-CoV-2 (COVID-19) RNA RUIZ+probe Ql (Unsp spec) Negative Normal Negative [facility] Comment on above: Order Comment: Healt hcare Worker?: N Result Comment: Testing for SARS-CoV-2 by RT-PCR This test was developed and its performance characteristics determined by [employer] and validated at the [facility]. This test has not been FDA [...] is terminated or revoked sooner. PERFORMED BY: [address] [address] PATHOLOGIST BEATER AND PULPER FEEDER FAVIO CANAS M.D. Performed By: #### C BC, PT, PTT, BMP #### [facility] [address] head/brain wo conon 07-15 CT head/brain wo con [facility] Main [place] [address] [place] [address] CT Scan Report Signed Patient: Tammi Patel MR#: [id number] : 1935 Acct:[id number] Age/Sex: 85 / M ADM Date: 07/15/21 Loc: CT Room: Type: [facility] Attending Dr: Dixie Carroll PA-C Ordering Provider: [...] Jericho Esparza M.D.07/15/2021 1:43 PM Dictation Location: [place] [address] Transcribed By: [facility] 07/15/21 1343 Dictated By: Jericho Esparza II, MD 07/15/21 1339 Signed By: 07/15/21 1343 Normal [facility] Complete Blood Count Auto Di ffon 07-15-2021 Basophils (Bld) [#/Vol] 0.1 10*3/uL Normal 0.0-0.2 [facility] Comment on above: Result Comment: PERF ORMED BY: [place] [address] PATHOLOGIST BEATER AND PULPER FEEDER FAVIO CANAS M.D. Performed By: #### C BC, PT, PTT, BMP #### [address] Basophils/100 WBC (Bld) 1.9 % Normal . [facility] Comment on above: Performed By: #### C BC, PT, PTT, BMP #### [facility] [address] [place] [address] Eosinophils (Bld) [#/Vol] 0.3 10*3/uL Normal 0.0-0.45 [facility] Comment on above: Performed By: #### C BC, PT, PTT, BMP #### [address] Eosinophils/100 WBC (Bld) 5.4 % Normal . [facility] Comment on above: Performed By: #### C BC, PT, PTT, BMP #### [address] Erythrocyte distribution width (RBC) [Ratio] 14.3 % Normal 12.0-14.8 [facility] Comment on above: Performed By: #### C BC, PT, PTT, BMP #### [address] Hematocrit (Bld) [Volume fraction] 37.0 % Low 38.8-50.0 [facility] Comment on above: Performed By: #### C BC, PT, PTT, BMP #### [address] Hemoglobin (Bld) [Mass/Vol] 12.9 g/dL Low 13.0-17.0 [facility] Comment on above: Performed By: #### C BC, PT, PTT, BMP #### [address] Lymphocytes (Bld) [#/Vol] 0.8 10*3/uL Low 1.00-4.8 [facility] Comment on above: Performed By: #### C BC, PT, PTT, BMP #### [address] Lymphocytes/100 WBC (Bld) 15.0 % Normal . [facility] Comment on above: Performed By: #### C BC, PT, PTT, BMP #### [address] MCH (RBC) [Entitic mass] 30.0 pg Normal 27.5-35.2 [facility] Comment on above: Performed By: #### C BC, PT, PTT, BMP #### [address] MCV (RBC) [Entitic vol] 85.7 fL Normal 83.5-101 [facility] Comment on above: Performed By: #### C BC, PT, PTT, BMP #### [address] Mean Corpuscular HGB Conc 34.9 g/dL Normal 32.5-35.6 [facility] Comment on above: Performed By: #### C BC, PT, PTT, BMP #### [address] Monocytes (Bld) [#/Vol] 0.4 10*3/uL Normal 0.0-0.8 [facility] Comment on above: Performed By: #### C BC, PT, PTT, BMP #### [address] Monocytes/100 WBC (Bld) 7.3 % Normal . [facility] Comment on above: Performed By: #### C BC, PT, PTT, BMP #### [address] Neutrophils (Bld) [#/Vol] 3.9 10*3/uL Normal 1.8-7.7 [facility] Comment on above: Performed By: #### C BC, PT, PTT, BMP #### [address] Neutrophils/100 WBC (Bld) 70.4 % Normal . [facility] Comment on above: Performed By: #### C BC, PT, PTT, BMP #### [address] Nucleated RBC/100 WBC (Bld) [Ratio] 0.0 % Normal 0-0.5 [facility] Comment on above: Performed By: #### C BC, PT, PTT, BMP #### [address] Platelet mean volume (Bld) [Entitic vol] 8.1 fL Normal 6.6-10.1 [facility] Comment on above: Performed By: #### C BC, PT, PTT, BMP #### [place] [address] [place] Platelets (Bld) [#/Vol] 135 10*3/uL Low 150-450 [facility] Comment on above: Performed By: #### C BC, PT, PTT, BMP #### [place] [address] [place] RBC (Bld) [#/Vol] 4.32 10*6/uL Normal 3.90-5.60 [facility] Comment on above: Performed By: #### C BC, PT, PTT, BMP #### [facility] [address] WBC (Bld) [#/Vol] 5.6 10*3/uL Normal 4.5-11.0 [facility] Comment on above: Performed By: #### C BC, PT, PTT, BMP #### [facility] [address] [place] [address] ECG 12 lead ECGon 07-15-2021 ECG 12 lead ECG [facility] Main [place] [address] [place] [address] Electrocardiograph Report Signed Patient: Tammi Patel MR#: [id number] : 1935 Acct:[id number] Age/Sex: 85 / M ADM Date: 07/15/21 Loc: Room: [address] [place] [address] Type: DIS IN Attending Dr: Jose Barber [...] Signed By Omayra Horowitz MD 07/15/211909 Normal [facility] Partial Thromboplastin Timeo n 07-15-2021 aPTT Coag (Bld) [Time] 31.7 s Normal 25.1-36.5 [facility] Comment on above: Result Comment: PERF ORMED BY: [place] [address] PATHOLOGIST BEATER AND PULPER FEEDER FAVIO CANAS M.D. Performed By: #### C BC, PT, PTT, BMP #### [facility] [address] [place] [address] [place] Prothrombin Time INRon 07-15 INR Coag (PPP) [Relative time] 1.0 {INR} Normal [facility] Comment on above: Result Comment: INR [...] #### C BC, PT, PTT, BMP #### [address] PT Coag (PPP) [Time] 11.4 s Normal 9.0-12.9 [facility] Comment on above: Performed By: #### C BC, PT, PTT, BMP #### [address] Leigh Ag Negativeon 07-16-19 Leigh Ag Negative Negative Normal Negative [facility] Comment on above: Result Comment: This is a duplicate Leigh SARS Antigen (TREY) result to be used for statistical tracking purpose only. PERFORMED BY: [place] [address] PATHOLOGIST BEATER AND PULPER FEEDER FAVIO CANAS M.D. Performed By: #### C BC, PT, PTT, BMP #### [place] [id number] [facility] XR chest 1V portableon 07-15 XR chest 1V portable [facility] Main [place] [address] [place] [address] XRay Report Signed Patient: Tammi Patel MR#: [id number] : 1935 Acct:[id number] Age/Sex: 85 / M ADM Date: 07/15/21 Loc: ER Room: Type: [facility] ER Attending Dr: Ordering Provider: Omayra Horowitz [...] Jericho Esparza M.D.07/15/2021 2:43 PM Dictation Location: [place] [address] Transcribed By: [facility] 07/15/21 144 Dictated By: Jericho Esparza II, MD 07/15/211441 Signed By: 07/15/21 144 [facility] Office Visit (Cardiology)on 04-09-2021 Follow-up visit [...] All medical record entries made by the Violeta were at my direction and personally dictated [...] 09Apr2021 11:40AM Heart Rate72, L Brachial Artery Pritseka986, LUE, Sitting Umqzlxint22, LUE, Sitting Height5 ft 10 in Gpkyaa553 lb BMI Cbiqdyrhqj51.12 kg/m2 BSA Calculated2.04 Tobacco Useb) No Fall Screeninga) No falls within the last year Physical Exam Constitutional: alert and in no acute distress. Eyes: no erythema, swelling or discharge from the eye . Neck: neck is supple, symme (more content not included)... Normal [facility] Tobacco Screening.on 022 Fall risk assessment a) No falls within the last year [facility] PolyRemedy jones 250 DO Work Phone: Tobacco use status [facility] b) No [facility] QuinceeJamestown Regional Medical CenterReframe It jones 250 DO Work Phone: [facility] CARDIAC STRESS/REST INJE CTIONon 08-31-2018 [facility] CARDIAC STRESS/REST INJECTION Patient Name: TAMMI PATEL STUDY: Performing facility: [facility], [address], [address], [place] [address] Boot Liner Maker: Pete DELA CRUZ NP PCP: Dr. Anthony MARTINEZ INDICATION: Abnormal EKG; HISTORY: Gender: M; Age: 82 y/o ; Height: 180.34 cm; Weight: 89.6851331 kg. Abnormal EKG; Palpitations; SOB; Fatigue; Family HX CAD; Quit smoking years ago. COMPARISON: Previous nuclear testing completed at [facility]. ACCESSION NUMBER(S): [id number]; [id number]; [id number] ORDERING CLINICIAN: LINDA HOROWITZ NP TECHNIQUE: ONE [...] 43%. Electronically signed by: NEO MATHEW MD [facility] CNOVSPon 09-02-2017 CNOVSP Visit (SP) Office (HEMACL) -------TAMMI PATEL ([id number]) 1935 MDate Time Provider Department09/02/17 1:00 PM DONOVAN CASTORENA [facility] During your visit today, we recorded the following information about you: Temperature Pulse Respiration Blood pressure 97.6 degrees 70/minute 18/minute 121/60 Weight Height 86.7 kg 1.753 Corky Castorena, 09/17/2017 9:27 AM SignedPATIENT NAME: Tammi TaylorMarylin: [id number] PHYSICIAN: Ben Jiménez MD417 [facility] [address]JLJUZVM CARE PHYSICIAN: Patric Martinez MDOTHER PHYSICIANS:CHIEF COMPLAINT: Patient presents with:Thrombocytopenia: follow upASSESSMENT/PLAN:1. Isolated ThrombocytopeniaDifferentia l diagnosis includes occult liver disease, ITP, MDS, [...] 09/02/17-COMP METABOLIC PANEL-CBC + DIFF (FOR REMOTE [facility] USE)-PROTEIN ELECTROPHORESIS W/INTERP-MONOCLONAL PROT BLD W/INTERP-KAPPA/PLAZA,FREE,SE R Return if symptoms worsen or fail to improve.he will follow-up as needed only.His platelets are very minimally below normallimit and he has no symptoms. He knows to call me if he has any petechial rashor bleeding issues. Certainly I am more than willing to see him if his otherhealthcare practitioners think this is necessary. ---HPI: 81 year old male with past medical history significant for chronicnephrolithiasis, benign prostatic hyperplasia, essential hypertension, TIA ( onPlavix), who had multiple Extracorporeal shock wave lithotripsy (ESWL) in [facility] , apparently was scheduled for another [...] nothing new or out of the ordinary. Ewk451 today No more problems with kidney stones.September [...] 1 tablet by mouth once daily.Vit C-Vit N-Ejjqjj-Vqv-OM-3 (OCUVITE) 906-55-6-150 bi-wbcw-yr-mg cap Take bymouth once daily.tamsulosin ER (FLOMAX) [...] to palpation. No flank tenderness.Rod Castorena D.O.Medical OncologistSt. Vincent Hospital Cancer [place], [place]Referring Provider: BEN JIMÉNEZ [[id number]]Allergies As of Date: 09/02/2017(No Known Allergies)Date Reviewed: 09/02/2017Reviewed by: Amy Horowitz - Fully AssessedReason for Visit: Thrombocytopenia [603] Cmt: follow upPrimary Visit Diagnosis:Thrombocytopenia (HCC) [D69.6]Order(s):COMP METABOLIC PANEL [SQCMP] Order #: [id number] FUTURE CBC + DIFF (FOR REMOTE [facility] USE) [SQRCBCDF] Order #: [id number] FUTURE PROTEIN ELECTROPHORESIS W/INTERP [SQSEPG] Order #: [id number] FUTURE MONOCLONAL PROT BLD W/INTERP [SQMPASRM] Order #: [id number] FUTURE KAPPA/PLAZA,FREE,SER [SQKLFRS] Order #: [id number] FUTUREDisposition: Return if symptoms worsen or fail [...] by DONOVAN CASTORENA DO on 09/17/17 Normal [facility] Comp Metabolic Panelon 09-02 Alanine aminotransferase (ALT) 14 U/L Normal 10-54 [facility] Comment on above: Performed By: #### C MP, KLFRS, SEPG, MPASRM ####[place] [phone] Albumin 4.2 g/dL Normal 3.9-4.9 [facility] Comment on above: Performed By: #### C MP, KLFRS, SEPG, MPASRM ####[place] [phone] Alkaline phosphatase (ALP) 57 U/L Normal 36-108 [facility] Comment on above: Performed By: #### C MP, KLFRS, SEPG, MPASRM ####[place] 2565000 [place] [phone] Anion gap 16 mmol/L Normal 9-18 [facility] Comment on above: Performed By: #### C MP, KLFRS, SEPG, MPASRM ####[facility] [place] [phone] Aspartate aminotransferase (AST) 20 U/L Normal 14-40 [facility] Comment on above: Performed By: #### C MP, KLFRS, SEPG, MPASRM ####[place] [address]65000 [place] [phone] Bilirubin (total) 0.9 mg/dL Normal 0.2-1.3 [facility] Comment on above: Performed By: #### C MP, KLFRS, SEPG, MPASRM ####[facility]CHeather [address] [phone] Calcium 9.5 mg/dL Normal 8.5-10.2 [facility] Comment on above: Performed By: #### C MP, KLFRS, SEPG, MPASRM ####[place] [address] [address] [place] [phone] Chloride 100 mmol/L Normal 97-105 [facility] Comment on above: Performed By: #### C MP, KLFRS, SEPG, MPASRM ####[place] [address] [address] [place] [phone] CO2 22 mmol/L Normal 22-30 [facility] Comment on above: Performed By: #### C MP, KLFRS, SEPG, MPASRM ####[place] [address] [address] [place] [phone] Creatinine 1.31 mg/dL High 0.73-1.22 [facility] Comment on above: Performed By: #### C MP, KLFRS, SEPG, MPASRM ####[place] [address] [address]Patrick [place] [phone] eGFR (non-black) 53 . Normal [facility] Comment on above: [...] By: #### C MP, KLFRS, SEPG, MPASRM ####[place] [address] [address]CHeather [place] [phone] eGFR (non-black) mL/min/{1.73_m2} Normal [facility] Comment on above: Performed By: #### C DIPIKA, KLFRS, SEPG, MPASRM ####[address] [phone] Glucose mass conc 159 mg/dL High 74-99 [facility] Comment on above: Result Comment: The [place] Diabetes Association (ADA) provides guidance for cutoff [...] Standards of Medical Care in Diabetes 2016, [place] Diabetes Association. Diabetes Care. 2016.39(Suppl 1). Performed By: #### C DIPIKA, KLFRS, SEPG, MPASRM ####[address] [phone] Potassium molar conc 5.0 mmol/L Normal 3.7-5.1 [facility] Comment on above: Performed By: #### C DIPIKA, KLFRS, SEPG, MPASRM ####[address] [phone] Protein 6.3 g/dL Normal 6.3-8.0 [facility] Comment on above: Performed By: #### C DIPIKA, KLFRS, SEPG, MPASRM ####[place] [address] [place], [place] [phone] Sodium 138 mmol/L Normal 136-144 [facility] Comment on above: Performed By: #### C DIPIKA, KLFRS, SEPG, MPASRM ####[address]ClevelandPiqu[address], [place] [phone] Urea nitrogen 18 mg/dL Normal 9-24 [facility] Comment on above: Performed By: #### C MP, KLFRS, SEPG, MPASRM ####[facility] AveCleveland, [place] [phone] Florien/Plaza,Free,Seron 2017 K/L Ratio, Serum 2.09 High 0.26-1.65 [facility] Comment on above: Performed By: #### C MP, KLFRS, SEPG, MPASRM ####[facility] AveCAber[place], [place] [phone] Florien, Free, Serum 24.7 mg/L High 3.30-19.40 [facility] Comment on above: Result Comment: Rare ly, increased serum free light chains values may not be detected due to antigen excess phenomenon. Results should always be correlated with other laboratory results and clinical findings. Performed By: #### C MP, KLFRS, SEPG, MPASRM ####[facility] AveCAber[address] [place], [place] [phone] Lambda, Free, Serum 11.8 mg/L Normal 5.7-26.[address] [facility] Comment on above: Result Comment: Rare ly, increased serum free light chains values may not be detected due to antigen excess phenomenon. Results should always be correlated with other laboratory results and clinical findings. Performed By: #### C MP, KLFRS, SEPG, MPASRM ####[facility] AveCleveland, [place] [phone] Monoclonl Protein,Blon 09-02 MPA Chinmay/Ledezma Ratio 1.75 Normal 1-3 [facility] Comment on above: Performed By: #### C MP, KLFRS, SEPG, MPASRM ####[facility] AveClevelandP[place], [place] [phone] MPA Result No M protein is identified. Normal No M protein is identified . [facility] Comment on above: Performed By: #### C MP, KLFRS, SEPG, MPASRM ####[facility] Hwontztdfcxn[address] Francis AveClevelJacob [place]ille [phone] MPA Serum IgA 164 mg/dL Normal 78-391 [facility] Comment on above: Performed By: #### C MP, KLFRS, SEPG, MPASRM ####[facility] AveClevelJacob [place]ille [phone] MPA Serum IgG 602 mg/dL Low 717-1411 [facility] Comment on above: Performed By: #### C MP, KLFRS, SEPG, MPASRM ####[place] [address] AveCHeather [place] [phone] MPA Serum IgM 65 mg/dL Normal 53-334 [facility] Comment on above: Performed By: #### C MP, KLFRS, SEPG, MPASRM ####[facility] AveCSamuel [place] [phone] Serum Florien 498 mg/dL Low 534-1267 [facility] Comment on above: Performed By: #### C MP, KLFRS, SEPG, MPASRM ####[facility] AveClevelJacob [place]ille [phone] Serum Lambda 285 mg/dL Normal 253-653 [facility] Comment on above: Performed By: #### C MP, KLFRS, SEPG, MPASRM ####[facility] AveClevelJacob [place]ille [phone] Staff Review Reviewed by Aquilino Hendricks MD ([id number]) Normal [facility] Comment on above: Performed By: #### C MP, KLFRS, SEPG, MPASRM ####[facility] AveCHeather [place] [phone] PROGRESSon 09-02-2017 PROGRESS HNO ID: [id number] thor: Donovan Aquino: (none)Author Type: PhysicianType: Progress NotesFiled: 09/17/2017 9:27 AMNote Text:PATIENT NAME: Tammi Bustamante: [id number] PHYSICIAN: Ben Jiménez MD[address] [facility] [place] [address]LALWPPF CARE PHYSICIAN: Patric Martinez MDOTHER PHYSICIANS:CHIEF COMPLAINT: Patient presents with:Thrombocytopenia: follow upASSESSMENT/PLAN:1. Isolated ThrombocytopeniaDifferentia l diagnosis includes occult liver disease, ITP, MDS,medications [...] 09/02/17-COMP METABOLIC PANEL-CBC + DIFF (FOR REMOTE [facility] USE)-PROTEIN ELECTROPHORESIS W/INTERP-MONOCLONAL PROT BLD W/INTERP-KAPPA/PLAZA,FREE,SE R Return if symptoms worsen or fail to improve.he will follow-up as needed only.His platelets are very minimally belownormal limit and he has no symptoms. He knows to call me if he has anypetechial rash or bleeding issues. Certainly I am more than willing tosee him if his other healthcare practitioners think this is necessary. ---HPI: 81 year old male with past medical [...] 1 tablet by mouth once daily.Vit C-Vit F-Qnhjxh-Kac-OM-3 (OCUVITE) 060-85-3-150 ie-itsn-hk-mg cap Takeby mouth once daily.tamsulosin ER (FLOMAX) [...] to palpation. No flank tenderness.Rod Castorena D.O.Medical OncologistO[place], [place] Normal [facility] Protein Electrophor.on 09-02 Albumin 3.74 g/dL Normal 3.37-4.23 [facility] Comment on above: Performed By: #### C MP, KLFRS, SEPG, MPASRM ####[address] [place] [phone] Alpha 1 Globulin 0.22 gm/dL Normal 0.18-0.31 [facility] Comment on above: Performed By: #### C MP, KLFRS, SEPG, MPASRM ####[address] [place] [phone] Alpha 2 Globulin 0.72 gm/dL Normal 0.52-0.97 [facility] Comment on above: Performed By: #### C MP, KLFRS, SEPG, MPASRM ####[place] [address]65[address] AveCHeather [place] [phone] Beta Globulin 0.89 gm/dL Normal 0.84-1.36 [facility] Comment on above: Performed By: #### C MP, KLFRS, SEPG, MPASRM ####[facility] Stqluxhdovzg80[address] AveC[phone] Gamma Globulin 0.73 gm/dL Normal 0.70-1.44 [facility] Comment on above: Performed By: #### C MP, KLFRS, SEPG, MPASRM ####[place] [address]65000 [address] AveCHeather [place] [phone] Interpretation SEE COMMENT Normal [facility] Comment on above: Result Comment: No d efinitive M protein is identified on protein electrophoresis. Performed By: #### C MP, KLFRS, SEPG, MPASRM ####[address] [phone] M Protein Location N/A Normal [facility] Comment on above: Performed By: #### C MP, KLFRS, SEPG, MPASRM ####[address] [phone] M Dhiraj Concentratn 0.00 gm/dL Normal 0.[address] [facility] Comment on above: Performed By: #### C MP, KLFRS, SEPG, MPASRM ####[address] [phone] SPE Staff Review Reviewed by Aquilino Hendricks MD ([id number]) Normal [facility] Comment on above: Performed By: #### C MP, KLFRS, SEPG, MPASRM ####[address] [phone] Total Protein, SPE 6.3 g/dL Normal 6.0-8.4 [facility] Comment on above: Performed By: #### C MP, KLFRS, SEPG, MPASRM ####[address] [phone] Remote CBCDIF (for [facility] use o nly)on 09-02-2017 Abs Baso 0.03 k/uL Normal 0.00-0.10 [facility] Abs Bradley 0.49 k/uL Normal 0.00-0.86 [facility] Abs Neut 4.04 k/uL Normal 1.45-7.50 [facility] Basophils/100 WBC Auto (Bld) 0.5 % Normal [facility] Eosinophils 0.36 10*3/uL Normal 0.00-0.45 [facility] Eosinophils/100 leukocytes 5.8 % Normal [facility] Erythrocyte distribution width Auto Ratio (RBC) 13.4 % Normal 11.5-15.0 [facility] Erythrocytes (RBC) 4.86 10*6/uL Normal 4.20-6.00 [facility] Hematocrit (HCT) 42.4 % Normal 39.0-51.0 [facility] Hemoglobin mass conc (Bld) 14.9 g/dL Normal 13.0-17.0 [facility] Lymphocytes 1.24 10*3/uL Normal 1.00-4.00 [facility] Lymphocytes/100 leukocytes 20.1 % Normal [facility] MCH 30.7 pG Normal 26.0-34.0 [facility] MCHC mass conc (RBC) 35.1 g/dL Normal 30.5-36.0 [facility] MCV 87.2 fL Normal 80.0-100.0 [facility] Monocytes/100 leukocytes 8.0 % Normal [facility] Neutrophils/100 WBC Auto (Bld) 65.6 % Normal [facility] Platelet mean volume (PMV) 10.2 fL Normal 9.0-12.7 [facility] Platelets 143 10*3/uL Low 150-400 [facility] WBC (Leukocytes) 6.16 10*3/uL Normal 3.70-11.00 [facility] Vital Signs Date Time Vital Sign Value Performing Clinician Facility 02-08-2024 10:48-0500 Body height 180.3 cm Asia Sexton DPM Work Phone: [facility] 02-08-2024 10:48-0500 Body mass index (BMI) [Ratio] 25.8 kg/m2 Asia FOSTERM Work Phone: [facility] 02-08-2024 10:48-0500 Body weight 83.92 kg Asia FOSTERM Work Phone: [facility] 01-25-2024 11:29-0500 Body mass index (BMI) [Ratio] 25.8 kg/m2 Shayla Tsai NP Work Phone: [facility] 01-25-2024 11:29-0500 Body weight 83.92 kg Shayla Tsai NP Work Phone: [facility] 01-25-2024 11:29-0500 Diastolic blood pressure 66 mm[Hg] Shayla Tsai [employer] Work Phone: [facility] 01-25-2024 11:29-0500 Heart rate 69 /min Shayla Tsai [employer] Work Phone: [facility] 01-25-2024 11:29-0500 Systolic blood pressure 121 mm[Hg] Shayla Tsai [employer] Work Phone: [facility] 12-08-2023 20:10-0400 Body height 180.34 cm [facility] 12-08-2023 20:10-0400 Body mass index (BMI) [Ratio] 24.8 kg/m2 [facility] 12-08-2023 20:10-0400 Body weight 80.79 kg [facility] 12-08-2023 20:10-0400 Diastolic blood pressure 72 mm[Hg] [facility] 12-08-2023 20:10-0400 Heart rate 108 /min [facility] 12-08-2023 20:10-0400 Systolic blood pressure 108 mm[Hg] [facility] 11-25-2023 09:17-0400 Diastolic blood pressure 60 mm[Hg] Rebekah Harris MD Work Phone: [facility] 11-25-2023 09:17-0400 Systolic blood pressure 115 mm[Hg] Rebekah Harris MD Work Phone: [facility] 11-09-2023 10:53-0400 Body height 180.3 cm Asia Sexton DPM Work Phone: [facility] 11-09-2023 10:53-0400 Body mass index (BMI) [Ratio] 25.94 kg/m2 Asia Sexton DPM Work Phone: [facility] 11-09-2023 10:53-0400 Body weight 84.37 kg Asia Sexton DPM Work Phone: [facility] 10-14-2023 09:59-0400 Body height 180.34 cm [facility] 10-14-2023 09:59-0400 Body mass index (BMI) [Ratio] 25.9 kg/m2 [facility] 10-14-2023 09:59-0400 Body weight 84.36 kg [facility] 10-14-2023 09:59-0400 Diastolic blood pressure 70 mm[Hg] [facility] 10-14-2023 09:59-0400 Heart rate 88 /min [facility] 10-14-2023 09:59-0400 Respiratory rate 12 /min [facility] 10-14-2023 09:59-0400 Systolic blood pressure 114 mm[Hg] [facility] 06-17-2023 13:40-0400 Body height 180.34 cm [facility] 06-17-2023 13:40-0400 Body mass index (BMI) [Ratio] 25.9 kg/m2 [facility] 06-17-2023 13:40-0400 Body weight 84.36 kg [facility] 06-17-2023 13:40-0400 Diastolic blood pressure 66 mm[Hg] [facility] 06-17-2023 13:40-0400 Heart rate 75 /min [facility] 06-17-2023 13:40-0400 Respiratory rate 12 /min [facility] 06-17-2023 13:40-0400 Systolic blood pressure 111 mm[Hg] [facility] 05-18-2023 10:47-0500 Blood Pressure Location Jourdan URBINA [facility] 05-18-2023 10:47-0500 Diastolic blood pressure 80 mm[Hg] Jourdan URBINA [facility] 05-18-2023 10:47-0500 Heart rate 68 /min Jourdan URBINA [facility] 05-18-2023 10:47-0500 Respiratory rate 16 /min Jourdan URBINA [facility] 05-18-2023 10:47-0500 Systolic blood pressure 127 mm[Hg] Jourdan URBINA [facility] 05-08-2023 13:30-0500 Body height 180.34 cm [facility] 05-08-2023 13:30-0500 Body mass index (BMI) [Ratio] 25.4 kg/m2 [facility] 05-08-2023 13:30-0500 Body weight 82.55 kg [facility] 05-08-2023 13:30-0500 Diastolic blood pressure 80 mm[Hg] [facility] 05-08-2023 13:30-0500 Heart rate 80 /min [facility] 05-08-2023 13:30-0500 Respiratory rate 12 /min [facility] 05-08-2023 13:30-0500 Systolic blood pressure 121 mm[Hg] [facility] 04-30-2023 15:12-0500 Body height 180.34 cm [facility] 04-30-2023 15:12-0500 Body mass index (BMI) [Ratio] 25.8 kg/m2 [facility] 04-30-2023 15:12-0500 Body temperature 96.4 [degF] [facility] 04-30-2023 15:12-0500 Body weight 83.97 kg [facility] 04-30-2023 15:12-0500 Diastolic blood pressure 70 mm[Hg] [facility] 04-30-2023 15:12-0500 Heart rate 98 /min [facility] 04-30-2023 15:12-0500 Respiratory rate 18 /min [facility] 04-30-2023 15:12-0500 SaO2% (BldA) [Mass fraction] 97 % [facility] 04-30-2023 15:12-0500 Systolic blood pressure 120 mm[Hg] [facility] 02-16-2023 10:43-0500 Blood Pressure Location Jourdan URBINA [facility] 02-16-2023 10:43-0500 Diastolic blood pressure 60 mm[Hg] Jourdan URBINA [facility] 02-16-2023 10:43-0500 Heart rate 62 /min Jourdan URBINA [facility] 02-16-2023 10:43-0500 Respiratory rate 16 /min Jourdan URBINA [facility] 02-16-2023 10:43-0500 Systolic blood pressure 105 mm[Hg] Jourdan URBINA [facility] 02-12-2023 11:30-0500 Body height 180.34 cm Wilder Ball Other [facility] 02-12-2023 11:30-0500 Body mass index (BMI) [Ratio] 26.02 kg/m2 Wilder Ball Other [facility] [employer] Other 02-12-2023 11:30-0500 Body weight 84.64 kg Wilder Ball Other [facility] 02-12-2023 11:30-0500 Diastolic blood pressure 74 mm[Hg] Wilder Ball Other [facility] 02-12-2023 11:30-0500 Respiratory rate 12 /min Wilder Ball Other [facility] [employer] Other 02-12-2023 11:30-0500 Systolic blood pressure 119 mm[Hg] Wilder Ball Other [facility] 01-26-2023 09:18-0500 Body height 177.8 cm Kaiser Gómez MD Work Phone: [facility] 01-26-2023 09:18-0500 Body mass index (BMI) [Ratio] 26.69 kg/m2 Kaiser Gómez MD Work Phone: [facility] 01-26-2023 09:18-0500 Body weight 84.37 kg Kaiser Gómez MD Work Phone: [facility] 01-26-2023 09:18-0500 Diastolic blood pressure 86 mm[Hg] Kaiser Gómez MD Work Phone: [facility] 01-26-2023 09:18-0500 Heart rate 78 /min Kaiser Gómez MD Work Phone: [facility] 01-26-2023 09:18-0500 Systolic blood pressure 124 mm[Hg] Kaiser Gómez MD Work Phone: [facility] 11-13-2022 09:40-0400 Body height 180.34 cm Nabil Sonia Other [facility] Other 11-13-2022 09:40-0400 Body mass index (BMI) [Ratio] 26.3 kg/m2 Nabil Sonia Other [facility] Other 11-13-2022 09:40-0400 Body temperature 97.7 [degF] Nabil Sonia Other [facility] Other 11-13-2022 09:40-0400 Body weight 85.55 kg Nabil Sonia Other [facility] Other 11-13-2022 09:40-0400 Diastolic blood pressure 70 mm[Hg] Nabil Sonia Other [facility] Other 11-13-2022 09:40-0400 Respiratory rate 18 /min Nabil Sonia Other [facility] Other 11-13-2022 09:40-0400 SaO2% (BldA) [Mass fraction] 96 % Nabil Sonia Other [facility] Other 11-13-2022 09:40-0400 Systolic blood pressure 110 mm[Hg] Nabil Sonia Other [facility] Other 04-17-2022 11:00-0500 Body height 180.34 cm Nabil Sonia Other [facility] Other 04-17-2022 11:00-0500 Body mass index (BMI) [Ratio] 26.58 kg/m2 Nabil Sonia Other [facility] Other 04-17-2022 11:00-0500 Body temperature 96.5 [degF] Nabil Sonia Other [facility] Other 04-17-2022 11:00-0500 Body weight 86.46 kg Nabil Sonia Other [facility] Other 04-17-2022 11:00-0500 Diastolic blood pressure 71 mm[Hg] Nabil Sonia Other [facility] Other 04-17-2022 11:00-0500 Respiratory rate 18 /min Nabil Sonia Other [facility] Other 04-17-2022 11:00-0500 SaO2% (BldA) [Mass fraction] 97 % Nabil Sonia Other [facility] Other 04-17-2022 11:00-0500 Systolic blood pressure 131 mm[Hg] Nabil Sonia Other [facility] Other 01-15-2022 15:30-0400 Body height 177.8 cm Wilder Luna Ball Work Phone: [facility] [employer] DO Work Phone: 01-15-2022 15:30-0400 Body mass index (BMI) [Ratio] 27.26 kg/m2 Wilder Luna Ball Work Phone: [facility] [employer] DO Work Phone: 01-15-2022 15:30-0400 Body surface area Derived from formula 2.04 m2 Wilder Luna Ball Work Phone: [facility] [employer] [address] DO Work Phone: 01-15-2022 15:30-0400 Body weight 86.18 kg Wilder Luna Ball Work Phone: [facility] [employer] 250 DO Work Phone: 01-15-2022 15:30-0400 Diastolic blood pressure 60 mm[Hg] Wilder Luna Ball Work Phone: [facility] [employer] [address] DO Work Phone: 01-15-2022 15:30-0400 Heart rate 68 /min Wilder Luna Ball Work Phone: [facility] [employer] [address] DO Work Phone: 01-15-2022 15:30-0400 Systolic blood pressure 112 mm[Hg] Wilder Luna Ball Work Phone: [facility] [employer] DO Work Phone: 2021 11:00-0400 Body height 180.34 cm Nabil Sonia Other [facility] Other 2021 11:00-0400 Body mass index (BMI) [Ratio] 26.11 kg/m2 Nabil Sonia Other [facility] Other 2021 11:00-0400 Body temperature 97.4 [degF] Nabil Sonia Other [facility] Other 2021 11:00-0400 Body weight 84.91 kg Nabil Sonia Other [facility] Other 2021 11:00-0400 Diastolic blood pressure 70 mm[Hg] Nabil Sonia Other [facility] Other 2021 11:00-0400 Respiratory rate 18 /min Nabil Sonia Other [facility] Other 2021 11:00-0400 SaO2% (BldA) [Mass fraction] 97 % Nabil Sonia Other [facility] Other 2021 11:00-0400 Systolic blood pressure 110 mm[Hg] Nabil Sonia Other [facility] Other 07-29-2021 12:30-0400 Body height 180.34 cm Angel Cotton Other [facility] Other 07-29-2021 12:30-0400 Body mass index (BMI) [Ratio] 26.05 kg/m2 Angel Cotton Other [facility] Other 07-29-2021 12:30-0400 Body weight 84.73 kg Angel Cotton Other [facility] Other 04-09-2021 11:40-0500 Body height 177.8 cm Wilder Luna Ball Work Phone: [facility] 250 DO Work Phone: 04-09-2021 11:40-0500 Body mass index (BMI) [Ratio] 27.12 kg/m2 Wilder E Ball Work Phone: [facility] 250 DO Work Phone: 04-09-2021 11:40-0500 Body surface area Derived from formula 2.04 m2 Wilder E Ball Work Phone: [facility] 250 DO Work Phone: 04-09-2021 11:40-0500 Body weight 85.73 kg Wilder E Ball Work Phone: [facility] 250 DO Work Phone: 04-09-2021 11:40-0500 Diastolic blood pressure 70 mm[Hg] Wilder E Ball Work Phone: [facility] 250 DO Work Phone: 04-09-2021 11:40-0500 Heart rate 72 /min Wilder E Ball Work Phone: [facility] 250 DO Work Phone: 04-09-2021 11:40-0500 Systolic blood pressure 122 mm[Hg] Wilder E Ball Work Phone: [facility] 250 DO Work Phone: Encounters Encounter Date Encounter Type Care Provider Facility Start: 02-08-2024 End: 02-08-2024 Bamboo flowsdaysi Sexton DPM Work Phone: [facility] Start: 02-08-2024 End: 02-08-2024 Bamboo flowsheet Asia Sexton DPM Work Phone: [facility] Start: 02-08-2024 End: 02-08-2024 ambulatory ASIA SEXTON Not Available Start: 02-08-2024 End: 02-08-2024 Patient encounter procedure Asia Sexton DPM Work Phone: [facility] Comment on above: Dermatophytosis of n ail (Primary Dx); Dystrophic nail; Pain around toenail, right foot; Pain around toenail, left foot Start: 01-25-2024 End: 01-25-2024 Bamboo flowsheet Shayla Tsai [employer]IATE Work Phone: [facility] Start: 01-25-2024 End: 01-25-2024 Bamboo flowsheet Shayla Tsai ME[employer] ASSOCIATE Work Phone: [facility] Start: 01-25-2024 End: 01-25-2024 ambulatory SHAYLA TSAI Not Available Start: 01-25-2024 End: 01-25-2024 Office outpatient visit 15 minutes Shayla Tsai [employer] Work Phone: [facility] Comment on above: Parkinson's disease without dyskinesia, unspecified whether manifestations fluctuate (CMS/HCC) (Primary Dx); Cognitive impairment; Cerebrovascular accident (CVA), unspecified mechanism (CMS/HCC); Carotid artery disease, unspecified laterality, unspecified type (CMS/HCC) Start: 12-09-2023 End: 12-09-2023 ambulatory [facility] Work Phone: Start: 12-09-2023 End: 12-09-2023 Patient encounter procedure [facility] Work Phone: Start: 12-07-2023 Non-patient / Non-visit [facility] Work Phone: Start: 12-01-2023 End: 12-01-2023 ambulatory [facility] Work Phone: Start: 12-01-2023 End: 12-01-2023 Patient encounter procedure [facility] Work Phone: Start: 11-25-2023 End: 11-25-2023 Patient encounter procedure Rebekah Harris MD Work Phone: [facility] Comment on above: 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) Start: 11-25-2023 End: 11-25-2023 ambulatory REBEKAH Luna HARRIS Not Available Start: 11-23-2023 ambulatory Jourdan Anderson CIARA Keith ty:[facility] Start: 11-17-2023 End: 11-17-2023 Lab Drop off Priti Joel [facility] Start: 11-17-2023 End: 11-17-2023 ambulatory Priti X Orzesoraida Facility:[facility] Start: 11-17-2023 End: 11-17-2023 Patient encounter procedure Priti X Marycruz [facility] [place] Start: 11-09-2023 End: 11-09-2023 Bamboo flowsheet Asia Sexton DPM Work Phone: [facility] Start: 11-09-2023 End: 11-09-2023 Bamboo flowsheet Asia Sexton DPM Work Phone: [facility] Start: 11-09-2023 End: 11-09-2023 ambulatory ASIA SEXTON Not Available Start: 11-09-2023 End: 11-09-2023 Patient encounter procedure Asia Sexton DPM Work Phone: [facility] Comment on above: Dermatophytosis of n ail (Primary Dx); Dystrophic nail; Pain around toenail, right foot; Pain around toenail, left foot Start: 10-23-2023 End: 10-23-2023 ambulatory KARISSA A EUGENIEI Not Available Start: 10-14-2023 End: 10-14-2023 ambulatory [facility] Work Phone: Start: 10-14-2023 End: 10-14-2023 Patient encounter procedure [facility] Work Phone: Start: 10-09-2023 End: 10-09-2023 ambulatory KARISSA A PETITTI Not Available Start: 10-05-2023 End: 10-05-2023 ambulatory NAIF ESTRADA [facility] Start: 09-28-2023 End: 09-28-2023 ambulatory SHAYLA TSAI Not Available Start: 09-23-2023 End: 09-23-2023 ambulatory JEFFREY CULVER Not Available Start: 09-15-2023 End: 09-15-2023 ambulatory MARINA HEADLEY Not Available Start: 09-14-2023 End: 09-14-2023 ambulatory BONILLA LOPEZ [facility] Start: 09-11-2023 End: 09-11-2023 ambulatory [facility] Work Phone: Start: 09-11-2023 End: 09-11-2023 Patient encounter procedure [facility] Work Phone: Start: 08-03-2023 End: 08-03-2023 ambulatory KARISSA BEARDARVIND Not Available Start: 07-27-2023 End: 07-27-2023 ambulatory ASIA A CANDELARIO Not Available Start: 07-01-2023 End: 07-01-2023 ambulatory JEFFREY CULVER Not Available Start: 06-17-2023 End: 06-17-2023 ambulatory [facility] Work Phone: Start: 06-17-2023 End: 06-17-2023 Patient encounter procedure [facility] Work Phone: Start: 06-16-2023 Non-patient / Non-visit [facility] Work Phone: Start: 06-15-2023 Non-patient / Non-visit [facility] Work Phone: Start: 06-14-2023 Non-patient / Non-visit [facility] Work Phone: Start: 05-18-2023 End: 05-18-2023 ambulatory Jourdan URBINA Facility:[facility] [place] Start: 05-18-2023 End: 05-18-2023 Patient encounter procedure Jourdan URBINA [facility] [place] Start: 05-08-2023 End: 05-08-2023 ambulatory [facility] Work Phone: Start: 05-08-2023 End: 05-08-2023 Patient encounter procedure [facility] Work Phone: Start: 04-30-2023 End: 04-30-2023 ambulatory [facility] Work Phone: Start: 04-30-2023 End: 04-30-2023 Patient encounter procedure [facility] Juan C Work Phone: Start: 04-28-2023 End: 04-28-2023 ambulatory Jourdan URBINA Facility:[facility] Start: 04-28-2023 End: 04-28-2023 Patient encounter procedure Jourdan URBINA [facility] Start: 04-15-2023 End: 04-15-2023 ambulatory ASIA SEXTON Not Available Start: 04-09-2023 End: 04-09-2023 ambulatory Priti X Orzech Facility:[facility] Start: 04-09-2023 End: 04-09-2023 Patient encounter procedure Priti X Orzech [facility] [place] Start: 04-06-2023 End: 04-06-2023 ambulatory Jourdan URBINA Facility:[id number] Start: 03-30-2023 End: 03-30-2023 ambulatory Wilder Sam Other [facility] Other Start: 03-30-2023 Telephone encounter Wilder Sam [facility] Start: 03-18-2023 End: 03-18-2023 ambulatory Nabil Scott Other [facility] Other Start: 03-18-2023 Telephone encounter Nabil Sonia [facility] Start: 02-16-2023 End: 02-16-2023 ambulatory Jourdan URBINA Facility:[facility] Start: 02-16-2023 End: 02-16-2023 Patient encounter procedure Jourdan URBINA [facility] Start: 02-12-2023 End: 02-12-2023 ambulatory Wilder Sam Other [facility] Other Start: 02-12-2023 Patient encounter procedure Wilder Cecy [facility] Start: 02-12-2023 End: 02-12-2023 Patient encounter procedure [facility] Work Phone: Start: 01-26-2023 End: 01-26-2023 Office outpatient visit 25 minutes Kaiser Gómez MD Work Phone: [facility] Comment on above: Mixed hyperlipidemia (Primary Dx); Ventricular tachycardia, paroxysmal (CMS/HCC); TIA (transient ischemic attack); History of right-sided carotid endarterectomy; Essential hypertension; Bilateral carotid artery stenosis Start: 11-13-2022 End: 11-13-2022 ambulatory Nabil Sonia Other [facility] Other Start: 11-13-2022 Office outpatient vi sit 25 minutes Nabil Sonia [facility] Juan C Start: 09-09-2022 End: 09-09-2022 ambulatory Nabil Sonia Other [facility] Other Start: 09-09-2022 Telephone encounter Nabil Sonia [facility] Start: 07-16-2022 End: 07-17-[address] KAISER GÓMEZ Facility: Start: 04-29-2022 End: 04-29-2022 ambulatory Wilder Sam Other [facility] Other Start: 04-29-2022 Telephone encounter Wilder Sam MARCE [facility] Start: 04-17-2022 End: 04-17-2022 ambulatory Nabil Sonia Other [facility] Other Start: 04-17-2022 Office outpatient vi sit 15 minutes Nabil Sonia [facility] Start: 04-07-2022 End: 04-07-2022 ambulatory Wilder Sam Other [facility] Other Start: 04-07-2022 Telephone encounter Wilder ZHENG Reggie Sam [facility] Start: 04-02-2022 End: 04-02-2022 ambulatory Wilder Sam Other [facility] Other Start: 04-02-2022 Telephone encounter Wilder ZHENG Reggie [facility] Start: 03-26-2022 End: 03-27-[address] DOCTOR RANKIN Facility:[facility] Start: 03-11-2022 End: 03-11-2022 ambulatory Azclive Quirozs Other [facility] Other Start: 03-11-2022 Telephone encounter Azclive Matadiandras [facility] Start: 02-10-2022 Adult health examination Nabil Sonia Other [facility] Other Start: 01-15-2022 Office outpatient vi sit 15 minutes Wilder Sam Work Phone: [facility] DO Work Phone: Start: 01-15-2022 ambulatory Wilder Sam Facility:[id number] Start: 01-10-2022 End: 01-11-[address] VANI RIDLEY Facility:[facility] Start: 12-21-2021 End: 12-21-2021 ambulatory ASIA ESPINAL Facility:[facility] Start: 10-30-2021 End: 10-31-[address] WILDER SAM Facility:[facility] Start: 2021 End: 2021 ambulatory Nabil Sonia Other [facility] [employer] Other Start: 2021 Office outpatient vi sit 25 minutes Nabil Sonia [facility] Juan C Start: 2021 Telephone encounter Nabil Sonia [facility] Start: 08-26-2021 End: 08-26-2021 ambulatory Angel Cotton Facility:[facility] Start: 08-01-2021 End: 08-02-[address] WILDER SAM Facility: Start: 07-29-2021 End: 07-29-2021 ambulatory Angel Cotton Other [facility] [employer] Other Start: 07-29-2021 Postop follow up vis it related to original px Angel Cotton [facility] Start: 07-15-2021 End: 07-24-2021 Evaluation and management of inpatient Josechris Barber Facility:[facility] Start: 07-15-2021 End: 07-15-2021 ambulatory Dixie Carroll Facility:[facility] Start: 04-09-2021 Office outpatient vi sit 25 minutes Wilder Sam Work Phone: [facility] 250 DO Work Phone: Start: 04-09-2021 ambulatory Kaiser DEWAYNEshawn II Faci lity: Start: 09-02-2017 End: 09-17-2017 Ambulatory DONOVAN CASTORENA [facility] Procedures Date Procedure Procedure Detail Performing Clinician Start: 11-19-2023 [facility] Rebekah guerin MD Work Phone: Start: 10-05-2023 Follow-up visit Follow-up NAIF ESTRADA Start: 06-14-2023 Bacteria identified in Urine by Culture Start: 06-14-2023 Blood Culture 1 Start: 06-14-2023 Blood Culture 2 Start: 04-28-2023 Urodynamic studies Maury URBINA Start: 04-06-2023 Transurethral cystoscopy Jourdan URBINA Start: 07-18-2021 Antibody screen Angel Cotton Comment on above: Order Comment: Comme nt FOR SURGERY 07/19 Result Comment: PERF ORMED BY: [facility] [place] [address] PATHOLOGIST [employer] FAVIO CANAS M.D. Start: 02-08-2020 Extracorporeal shock [...] Wilder king Work Phone: Cataract (disorder) Jourdan URBIAN Cephalic (qualifier value) P atrick CIARA Extraction of cataract Patienceri noe CIARA Hernia repair Jourdan URBINA History of carotid [...] E Cecy Work Phone: Total colonoscopy Wilder Sam Work Phone: Plan of Treatment Date Care Activity Detail Author Start: 08-01-2024 End: 08-01-2024 Patient encounter procedure 08/01/2024 9:35 AM EDT Office Visit [facility] [address] [place] [address] Karissa Davenport MD [address] [place] [address] [facility] Start: 05-23-2024 End: 05-23-2024 Patient encounter procedure 05/23/2024 1:00 PM EDT Procedure Visit [facility] [address] [place] [id number] Asia Sexton DPM [address] [facility] [place] [address] [facility] Start: 03-14-2024 End: 03-14-2024 Patient encounter procedure 03/14/2024 2:20 PM EST Office Visit [facility] [address] [place] [address] Shayla Tsai NP [address] [place], [place] [id number] [facility] Start: 02-15-2024 End: 02-15-2024 Patient encounter procedure 02/15/2024 9:40 AM EST Office Visit [facility] [address] [facility] [address] [place] [address] Kaiser Gómez MD [address] [facility] [place], [place] [id number] [facility] Start: 02-08-2024 End: 02-08-2024 Patient encounter procedure 02/08/2024 10:45 AM EST Procedure Visit [facility] [address] [place] [id number] Asia Sexton DPM [address] [place], [place] [id number] [facility] Start: 01-25-2024 End: 01-25-2024 Patient encounter procedure 01/25/2024 11:20 AM EST Office Visit [facility] [address] [place] [id number] Shayla Tsai NP [address] [place], [place] [phone] [facility] [address] Start: 11-25-2023 End: 11-25-2023 Patient encounter procedure 11/25/2023 9:15 AM EDT Office Visit [facility] [address] [place] [address] Rebekah Harris MD [address] [place] [address] [facility] Start: 11-15-2023 Influenza vaccination Influenza Vacc ine (#1) [facility] Start: 06-14-2023 Bacteria identified in Urine by Culture Urine Culture [facility] Start: 06-14-2023 Blood Culture 1 Blood Culture 1 [facility] Start: 06-14-2023 Blood Culture 2 Blood Culture 2 [facility] Start: 01-21-2023 FUV, Provider: Kaiser Gómez, Status: Pen, Time: 1:30 PM FUV, Provider: Kaiser Gómez, Status: Pen, Time: 1:30 PM [facility] [address] DO Work Phone: Start: 02-11-2022 COVID-19 Vaccine (4 - Pfizer series) COVID-19 Vaccine (4 - Pfizer series) [facility] Start: 01-15-2022 FUV, Provider: Kaiser Gómez, Status: Pen, Time: 3:10 PM FUV, Provider: Kaiser Gómez, Status: Pen, Time: 3:10 PM [facility] [address] DO Work Phone: Start: 09-18-1957 DTaP/Tdap/Td Vaccine s (1 - Tdap) DTaP/Tdap/Td Vaccines (1 - Tdap) [facility] Start: 09-18-1953 Diabetes mellitus screening Diabetes Screening [facility] Start: 1935 Lipid panel Lipid Panel [facility] Start: 1935 Medicare Annual Well ness Visit Medicare Annual Wellness Visit (AWV) [facility] Renal function 2000 panel - Serum or Plasma [facility] Immunizations Immunization Date Immunization Notes Care Provider Lauryn hagan 12-17-2022 Flu vaccine, quadrivalent, high-dose, preservative free, age 65y+ (FLUZONE) Kaiser Gómez MD Work Phone: [facility] 12-17-2022 influenza virus vaccine, unspecified formulation Jourdan URBINA [facility] 12-17-2022 influenza, high dose seasonal, preservative-free Wilder Sam Other General Compression Other 12-17-2021 Fluzone High-Dose Quadrivalent 0.7 ML Intramuscular Suspension Prefilled Syringe Wilder Sam Work Phone: [facility] 12-17-2021 influenza virus vaccine, unspecified formulation Jourdan URBINA [facility] 12-17-2021 Pfizer COVID-19 Vac Bivalent 30 MCG/0.3ML Intramuscular Suspension Wilder Cheryl Sam Work Phone: [facility] 11-04-2021 Prevnar 20 0.5 ML Intramuscular Suspension Prefilled Syringe Wilder Cheryl Sam Work Phone: [facility] 07-05-2021 Comirnaty 30 MCG/0.3 ML Intramuscular Suspension Wilder Cheryl Sam Work Phone: [facility] 07-05-2021 SARS-CoV-2 mRNA (sxtizyevgnz-ualf-ubrhd se) vaccine Jourdan URBINA [facility] 07-05-2021 SARS-CoV-2, Unspecified Edward Sexton DPM Work Phone: [facility] 03-18-2021 pneumococcal conjuga te vaccine, 13 valent Asia Sexton DPM Work Phone: [facility] 12-17-2020 Pfizer-BioNTech COVID-19 Vacc 30 MCG/0.3ML Intramuscular Suspension Wilder Cheryl Sam Work Phone: [facility] 12-05-2020 Fluzone High-Dose Quadrivalent 0.7 ML Intramuscular Suspension Prefilled Syringe Wilder Cheryl Sam Work Phone: [facility] 12-05-2020 influenza virus vaccine, unspecified formulation Jourdan URBINA [facility] 05-06-2020 Pfizer-BioNTech COVID-19 Vacc 30 MCG/0.3ML Intramuscular Suspension Wilder Cheryl Sam Work Phone: [facility] Comment on above: Result Comment: 2021: [id number] 05-05-2020 Pfizer Purple Cap SARS-CoV-2 Kaiser Gómez MD Work Phone: [facility] Work Phone: 04-06-2020 Pfizer-BioNTech COVID-19 Vacc 30 MCG/0.3ML Intramuscular Suspension Wilder Sam Work Phone: [facility] Comment on above: Result Comment: 2021: [id number] 04-05-2020 Pfizer Purple Cap SARS-CoV-2 Kaiser Gómez MD Work Phone: [facility] Work Phone: 01-03-2020 pneumococcal conjuga te vaccine, 13 valent Asia Sexton DPM Work Phone: [facility] 12-16-2019 influenza virus vaccine, unspecified formulation Jourdan URBINA [facility] 12-16-2019 influenza, high dose seasonal, preservative-free Wilder Sam Work Phone: [facility] 12-09-2019 influenza virus vaccine, unspecified formulation Jourdan URBINA [facility] 12-09-2019 influenza, seasonal, injectable Asia Sexton DPM Work Phone: [facility] 11-15-2019 influenza virus vaccine, unspecified formulation Jourdan URBINA [facility] 01-06-2019 zoster vaccine recombinant Kaiser Gómez MD Work Phone: [facility] Work Phone: 12-27-2018 influenza virus vaccine, unspecified formulation Jourdan URBINA [facility] 12-27-2018 influenza, seasonal, injectable Wilder Sam Work Phone: [facility] [address] DO Work Phone: 12-14-2018 influenza virus vaccine, unspecified formulation Wilder Sam Work Phone: [facility] 12-14-2018 influenza, seasonal, injectable Asia Sexton DPM Work Phone: [facility] 12-10-2018 influenza, high dose seasonal, preservative-free Kaiser Gómez MD Work Phone: [facility] Work Phone: 12-06-2018 influenza virus vaccine, unspecified formulation Jourdan URBINA [facility] 12-06-2018 influenza, high dose seasonal, preservative-free Wilder E Ball Work Phone: [facility] DO Work Phone: 11-08-2018 zoster vaccine recombinant Wilder E Ball Work Phone: [facility] DO Work Phone: 11-02-2018 zoster vaccine recombinant Asia Sexton DPM Work Phone: [facility] 12-14-2017 influenza virus vaccine, unspecified formulation Wilder E Ball Work Phone: [place] [address] DO Work Phone: 12-09-2017 influenza virus vaccine, unspecified formulation Jourdan URBINA [facility] 12-09-2017 influenza, injectabl e, quadrivalent, preservative free Kaiser Gómez MD Work Phone: [facility] Work Phone: 12-23-2016 influenza virus vaccine, unspecified formulation Jourdan URBINA [facility] 12-23-2016 influenza, high dose seasonal, preservative-free Wilder E Ball [facility] Work Phone: 12-14-2016 influenza virus vaccine, unspecified formulation Wilder E Ball Work Phone: [place] [address] DO Work Phone: 01-15-2016 influenza virus vaccine, unspecified formulation Wilder Sam Work Phone: [place] [address] DO Work Phone: 01-15-2016 pneumococcal conjuga te vaccine, 13 valent Wilder Cheryl Cecy Work Phone: [place] [address] DO Work Phone: 12-26-2015 pneumococcal conjuga te vaccine, 13 valent Kaiser Gómez MD Work Phone: [facility] Work Phone: 01-08-2015 influenza virus vaccine, unspecified formulation Wilder Sam Work Phone: [place] [address] DO Work Phone: 12-20-2013 influenza virus vaccine, unspecified formulation Wilder Sam Work Phone: [place] [address] DO Work Phone: 10-30-2010 zoster vaccine, live Benjami reynaldo E Cecy Work Phone: [place] [address] DO Work Phone: 03-16-2010 pneumococcal polysaccharide vaccine, 23 valent Wilder Sam Work Phone: [place] [address] DO Work Phone: 03-16-2008 pneumococcal polysaccharide vaccine, 23 valent Wilder Sam Work Phone: [place] [address] DO Work Phone: pneumococcal Conjuga te, unspecified formulation; Translations: [Need for prophylactic vaccination against Streptococcus pneumoniae (pneumococcus)] Nabil Scott Other General Compression Other Payers Date Payer Category Payer Medicare [id number] 2021 Medicare [id number] 2021 Self-pay 2021 Medicare (Managed Care) [employer] [id number] 2021 Unknown 2020 Unknown [id number] 1959 Medicare [id number] 1959 Private Health Insurance [id number] 1935 Unknown [id number] 2.16840.1.443078.3.579.2. 356 1935 Unknown [id number] 2.16.840.1.423982.3.579.2. 356 1935 Unknown [id number] 2.16.840.1.532487.3.579.2. 593 1935 Unknown [id number] 2.16.840.1.334535.3.579.2. 593 1935 Unknown [id number] 2.16840.1.998942.3.579.2. 593 1935 Unknown [id number] 2.16.840.1.411620.3.579.2. 593 1935 Unknown [id number] 2.16.840.1.150536.3.579.2. 593 1935 Unknown [id number] 2.16.840.1.815842.3.579.2. 593 1935 Unknown [id number] 2.16.840.1.659357.3.579.2. 593 1935 Unknown [id number] 2.16.840.1.590092.3.579.2. 128 1935 Unknown [id number] 2.16.840.1.712564.3.579.2. 1285 1935 Unknown [id number] 2.16.840.1.621431.3.579.2. 128 1935 Unknown [id number] 2.16.840.1.024118.3.579.2. 72 1935 Unknown [id number] 2.16.840.1.315385.3.579.2. 1935 Unknown [id number] 2.16.840.1.847004.3.579.2. 1935 Unknown [id number] 2.16.840.1.450050.3.579.2. 72 1935 Unknown [id number] 2.16840.1.226244.3.579.2. 1935 Unknown [id number] 2.16.840.1.705674.3.579.2. 1935 Unknown [id number] 2.16.840.1.024591.3.579.2. 72 1935 Unknown [id number] 2.16.840.1.604755.3.579.2. 1935 Unknown [id number] 2.16840.1.123835.3.579.2. 125 1935 Unknown [id number] 2.16.840.1.462813.3.579.2. 1258 1935 Unknown [id number] 2.16.840.1.604427.3.579.2. 1258 1935 Unknown [id number] 2.16.840.1.398458.3.579.2. 125 1935 Unknown [id number] 2.16.840.1.153573.3.579.2. 1258 1935 Unknown [id number] 2.16.840.1.789188.3.579.2. 1258 1935 Unknown [id number] 2.16.840.1.779606.3.579.2. 1258 1935 Unknown [id number] 2.16.840.1.500917.3.579.2. 1258 1935 Unknown [id number] 2.16.840.1.756030.3.579.2. 1258 1935 Unknown [id number] 2.16.840.1.742798.3.579.2. 1258 1935 Unknown [id number] 2.16.840.1.259224.3.579.2. 1258 1935 Unknown [id number] 2.16.840.1.743017.3.579.2. 1258 1935 Unknown [id number] 2.16.840.1.064639.3.579.2. 1259 Medicare [id number] 2.16.840.1.929079.19 Unknown [id number] 2.16.840.1.902247.3.579.2. 531 Unknown [id number] 2.16.840.1.027969.3.579.2. 531 Unknown [id number] 2.16.840.1.268377.3.579.2. 531 Unknown Regular Insurance [id number] Social History Date Type Detail Facility Start: 01-26-2023 End: 11-25-2023 No illicit drug use No illicit drug use [place] [address] DO Work Phone: Comment on above: Twice a week; 1 cup of coffee a da y; Start: 01-26-2023 End: 11-25-2023 [facility] Start: 01-26-2023 End: 04-30-2023 Tobacco smoking status NHIS Ex-smoker [facility] Work Phone: History of tobacco use Current smoker [facility] Work Phone: History of tobacco use Cigarette Smoker [facility] Work Phone: Start: 09-23-2022 End: 01-26-2023 Tobacco use and exposure Smokeless tobacco non-user [facility] Work Phone: Start: 01-26-2023 End: 11-25-2023 Alcohol intake Lifetime non-drinker (finding) [facility] Work Phone: Start: 1935 Sex Assigned At Not on file [facility] Work Phone: Start: 01-16-2023 End: 01-26-2023 Exposure to SARS-CoV-2 (event) Not sure [facility] Tobacco smoking status Never [facility] Start: 1935 Sex Assigned At Male F [facility] Start: 09-23-2022 Tobacco smoking stat us UTIS Never smoked tobacco [facility] Start: 09-26-2023 Alcohol Comment Caffeine intak e: 1-2 cups per day [facility] Medical Equipment Procedure Code Equipment Code Equipment Origin al Text Equipment Identifier Dates Cystoscopy, with ureteral calculus manipulation and stent placement Polymeric ureteral stent [id number] FDA Start: 11-19-2019 Cystoscopy, with ureteral calculus manipulation and stent placement Polymeric ureteral stent [id number] FDA Start: 11-19-2019 Craniotomy Craniofacial fixation plate, non-bioabsorbable ()[id number] FDA Start: 07-19-2021 Craniotomy Craniofacial fixation plate, non-bioabsorbable ()[id number] FDA Start: 07-19-2021 Craniotomy Craniofacial bon e screw, non-bioabsorbable, sterile ([id number] [facility] Start: 07-19-2021 Functional Status Date Assessment Result Facility 11-17-2023 Functional Status N/A [facility] 05-18-2023 Functional Status N/A [facility] 04-09-2023 Functional Status N/A [facility] 02-16-2023 Functional Status N/A [facility] Clinical Notes 07-14-2021 to 02-08-2024 Asia Sexton DPM - 02/08/2024 10:45 AM ESTPatient Padmini Tsai NP - 01/25/2024 11:20 AM Cheyenne Harris MD - 11/25/2023 9:15 AM EDTSanthony Sexton DPM - 11/09/2023 10:45 AM EDT Note Date & Type Note Facility 02-08-2024 History of Present illness Narrative Images from the original note were not included. Subjective Patient ID: Tammi Patel is a 88 y.o. male who presents for Nail care (Tammi Patel is a 88 y.o. male who presents for Toenail Care (SS: 11)). HPI HPI Onychomycosis/Toenail Fungus: presents today requesting nail care. Location: patient indicates that all digits are problematic/symptomatic; deformed discolored toenails. Duration: Insidious, chronic condition, years duration. Severity of symptoms: mild-moderate, impacting his ability to wear most shoes comfortably. Onset: gradual, without injury or trauma. Status: Problematic/symptomatic again over the past several weeks or so. Context: hard to trim , hard to reach ; self-care is difficult and not practical; exposing patient to considerable risk. Family members unable to provide effective care. Characteristics: elongated, discolored, thickened, pain , ingrowing, pressure; without bleeding or drainage. Relieved by: Palliative care provides effective transient symptom relief. Previous Treatment: palliative care as noted. Risk factors: Parkinson's disease. Medical comorbidities. Polypharmacy. Aspirin therapy. Mobility, flexibility and dexterity restraints. toenail deformity. Shoe trauma and associated complications. Aggravated by: shoe gear , pressure, walking , snagging on clothing etc.. Medications Current Outpatient Medications: amLODIPine (Norvasc) 5 MG tablet, Take by mouth Daily., Disp: , Rfl: aspirin 81 MG EC tablet, Take 81 mg by mouth in the morning., Disp: , Rfl: atorvastatin (Lipitor) 40 MG tablet, Take 40 mg by mouth in the morning. (Patient not taking: Reported on 01/25/2024), Disp: , Rfl: atorvastatin (Lipitor) 80 MG tablet, Take 80 mg by mouth Daily, Disp: , Rfl: carbidopa-levodopa (Sinemet) 25-100 MG tablet, 1.5 tabs po QID, Disp: 540 tablet, Rfl: 1 cephalexin (Keflex) 500 MG capsule, Take 1 capsule, by mouth, bid, 10 days (Patient not taking: Reported on 01/25/2024), Disp: 20 capsule, Rfl: 0 ciclopirox (Loprox) 0.77 % cream, Apply to armpits once a day/30 day supply, Disp: 30 g, Rfl: 11 docusate sodium (Colace) 100 MG capsule, Take 100 mg by mouth in the morning and 100 mg before bedtime., Disp: , Rfl: ergocalciferol (Vitamin D-2) 1.25 MG (55647 UT) capsule, Take 1.25 mg by mouth 1 (one) time per week., Disp: , Rfl: hydroCHLOROthiazide (HYDRODiuril) 12.5 MG tablet, Take 12.5 mg by mouth in the morning., Disp: , Rfl: latanoprost (Xalatan) 0.005 % ophthalmic solution, instill 1 DROP IN BOTH EYES EVERY NIGHT, Disp: , Rfl: metoprolol succinate XL (Toprol-XL) 25 MG 24 hr tablet, Take by mouth. Do not crush or chew., Disp: , Rfl: nystatin (Mycostatin) 423282 UNIT/GM powder, Apply to armpits twice a day when needed, 30 day supply, Disp: 30 g, Rfl: 11 potassium chloride ER (Micro-K) 10 MEQ ER capsule, Take 10 mEq by mouth in the morning and 10 mEq before bedtime. Do not crush or chew. ., Disp: , Rfl: psyllium (Metamucil) 58.6 % powder, Take 3 g of fiber by mouth in the morning and 3 g of fiber before bedtime., Disp: , Rfl: tamsulosin (Flomax) 0.4 MG 24 hr capsule, Take 0.4 mg by mouth in the morning., Disp: , Rfl: Allergies Patient has no known allergies. Past Surgical History Past Surgical History: Procedure Laterality Date BASAL CELL CARCINOMA EXCISION 09/01/2018 on the chest CATARACT EXTRACTION CHOLECYSTECTOMY COLONOSCOPY CT GUIDED TRANSVAGINAL TRANSRECTAL FLUID DRAIN 01/12/2019 CT GUIDED TRANSVAGINAL TRANSRECTAL FLUID DRAIN 01/12/2019 CYSTOSCOPY 2011 with lithotripsy, basket extraction, ureteral dilatation, Dr. Urbina HERNIA REPAIR HERNIA REPAIR Left KIDNEY STONE SURGERY LITHOTRIPSY LITHOTRIPSY OTHER SURGICAL HISTORY Right 01/2019 Right carotid endarterectomy with patch OTHER SURGICAL HISTORY 07/2021 Brain Bleed Sx at [facility] [place] LAP,CHOLECYSTECTOMY 2013 Dr. Louise PROSTATECTOMY TOTAL KNEE ARTHROPLASTY TOTAL KNEE ARTHROPLASTY Right Family History Family History Problem Relation Name Age of Onset Heart disease Mother Stroke Father Cancer Sister Cancer Brother Thyroid disease Daughter Melanoma Neg Hx Objective General Examination: GENERAL EXAMINATION: Alert and oriented. pleasant disposition. Ambulatory with cane assist. His spouse, Anny is present. Vascular: DORSALIS PEDIS PULSE: bilaterally, 2/4. POSTERIOR TIBIAL PULSE: bilaterally, 1/4. TEMPERATURE GRADIENT: warm to warm. EDEMA: unremarkable for ankle edema. CAPILLARY FILLING TIME(sec): capillary fill intact bilateral digits less than 3 secs. Neurologic: MUSCLE POWER: No focal deficits. SHARP SENSATION: Tactile and soft touch sensation intact. Dermatologic: SKIN FINDINGS: Intact, skin turgor is good. HYPERTROPHIC LESION: No forefoot or digital keratotic pressure lesions are noted. NAIL PATHOLOGY: Digits 1, 2 bilateral: Toenail dystrophy,, thickening, elongation, discoloration, pincer deformity, clubbing, crumbly texture, subtotal detachment, periungual hyperkeratotic debris, without drainage. Digits 3, 4, 5 bilateral: Varying degrees of toenail dystrophy and discoloration. INGROWN NAIL PATHOLOGY: bilateral great toes. MYCOSIS SCALE: total with debris; multiple digits. INTERDIGITAL MACERATION: Clean, dry, non-inflamed. ULCER: no sign of ulceration or open wound . SKIN PATHOLOGY: texture, turgor, hair growth, within normal limits. Ankle / Foot: FOOT: No areas of musculoskeletal tenderness identified. RANGE OF MOTION: functional passive range of motion without pain . Radiology: Assessment/Plan 1. 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 2. Parkinson's disease. Plan: Notes: conservative and palliative care measures are preferred, understood and again indicated. Patient expresses no interest in oral therapy. Topical therapy is difficult for him and not practical. Hygiene and skin care measures discussed. Procedure: Toenail Debridement: Aseptic technique: power/manual instrumentation: onychodebridement length and thickness, curretage of offending crypotic margins, divya-ungual debris, providing effective pressure and symptom relief, reducing shoe and digital trauma. This note was created with the assistance of a speech recognition program. While intending to generate a timely document that accurately reflects the content of the visit, no guarantee can be provided that every grammatical or spelling mistake has been or will be identified or corrected. Thank you for your understanding. Asia Sexton DPM documented in this encounter [facility] 02-08-2024 Instructions Asia Sexton DPM - 02/08/2024 10:45 AM EST As noted documented in this encounter [facility] 01-25-2024 History of Present illness Narrative Images from the original note were not included. Chief Complaint Patient presents with Parkinson's Disease Cognitive Impairment Cerebrovascular Accident Coronary Artery Disease Subjective Tammi Patel, 88 y.o., male Patient presents today for a follow up to Parkinson's. He presents with his . Patient is ambulating with a cane and has a shuffling gait. He continues working with PT 2 times per week. Continues on Sinemet 1.5 tablets four times per day. Denies any wearing off type symptoms. states that on occasion the patient seems to have difficulty initiating walking. She admits to some late and missed doses of his Sinemet, unsure if this correlates. She reports that his walking is slower. Denies any falls. states his memory is on a steady decline since last visit, denies significant changes. States he does require some help with dressing. Denies the need for assist with bathing. He is repeating himself more. Denies any signs or symptoms to suggest recurrent CVA. Continues on aspirin and statin therapy. Denies any tremors/shaking. Patient states he has 8 hours of sleep at night. Denies any other concerns today. Review of Systems Constitutional: Negative for appetite change, fatigue and fever. Respiratory: Negative for cough, shortness of breath and wheezing. Cardiovascular: Negative for chest pain, palpitations and leg swelling. Gastrointestinal: Negative for abdominal pain, constipation, diarrhea and nausea. Musculoskeletal: Positive for gait problem. Negative for arthralgias and myalgias. Neurological: Negative for dizziness, tremors, numbness and headaches. Positive for balance difficulty, shuffling of gait and memory loss. 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 Enlarged prostate Gait abnormality Gallstones Hearing loss History of medical problems history of small lacunar infarct Hypercholesteremia (CMS/HCC) Hypertension (CMS/HCC) Hyperuricemia Hypomagnesemia Intestinal adhesions with obstruction (CMS/HCC) Kidney stones Lacunar infarction (CMS/HCC) 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/antiplatelets Macular degeneration (senile) of retina Mixed hyperlipidemia (CMS/HCC) Onychomycosis of toenail Parkinson's disease (CMS/HCC) Partial small bowel obstruction (CMS/HCC) Personal history of ventricular tachycardia Personal history UTI Shuffling gait 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 Urbina HERNIA REPAIR HERNIA REPAIR Left KIDNEY STONE SURGERY LITHOTRIPSY LITHOTRIPSY OTHER SURGICAL HISTORY Right 01/2019 Right carotid endarterectomy with patch OTHER SURGICAL HISTORY 07/2021 Brain Bleed Sx at [facility] [place] LAP,CHOLECYSTECTOMY 2014 Dr. Louise PROSTATECTOMY TOTAL KNEE ARTHROPLASTY TOTAL KNEE ARTHROPLASTY Right Family History Problem Relation Name Age of Onset Heart disease Mother Stroke Father Cancer Sister Cancer Brother Thyroid disease Daughter Melanoma Neg Hx Social History Tobacco Use Smoking status: Never Smokeless tobacco: Never Substance Use Topics Alcohol use: Never Comment: Caffeine intake: 1-2 cups per day Allergies: Patient has no known allergies. Vitals: 01/25/24 1129 BP: 121/66 Pulse: 69 Body mass index is 25.8 kg/m . weight: 185 lb Neurologic exam: Mental status: Well nourished, well developed and in no acute distress. Hypomimia. Grossly oriented to person. Able to state the current season, unable to accurately state the year. Memory impairment, previous MOCA 15/30. Language is fluent without aphasia. Attention and concentration are normal. Fund of knowledge is appropriate for level of education. Cranial nerves: CN II: Visual acuity is normal. Visual huang full to confrontation. CN III, IV, : pupils equal round and reactive to light. Extraocular movements intact. No ptosis present. CN V: Facial sensation is normal. CN VII: Full and symmetric facial movement. CN VIII: Hearing is impaired, hearing aids bilaterally. CN IX and X: Palate elevates symmetrically. CN XI: Shoulder shrug is normal bilaterally. CN XII: Tongue is midline without atrophy or fasciculation. Motor: RUE Strength deltoid, , biceps , triceps , wrist extensors , wrist flexor , orchard worker strength 5/5. LUE Strength deltoid , biceps , triceps , wrist extensors , wrist flexor , orchard worker strength 5/5. RLE Strength illopsoas, quadriceps, tibialis anterior, and gastrocnemius strength 5/5. LLE Strength illopsoas, quadriceps, tibialis anterior, and gastrocnemius strength 5/5. Bulk is normal. Mild bradykinesia with very mildly increased tone bilaterally. No resting tremor. Sensory: Sensation is diminished to light touch throughout distal extremities. Diminished vibratory sensation distally Reflexes: RUE biceps reflex 2+ , brachioradialis reflex 2+. LUE biceps reflex 2+ , brachioradialis reflex 2+. RLE knee reflex 3+. LLE knee reflex 3+. Flores's Sign negative. Coordination: Ldrkqm-wt-deli testing is normal Gait: Uses cane, narrow based shuffling gait with somewhat stooped posture. Review and summary of old records: CT head wo contrasts at [facility] on 03/26/2022: no acute intracranial hemorrhage or evidence of a no intracranial hemorrhage. Small area of encephalomalacia changes with posterior superior right parietal lobe; likely sequela of remote small ischemic infarction. Age consistent atrophy and chronic small vessel ischemic changes. CT head wo contrast at [facility] on 07/15/21: There is a left subacute appearing subdural hematoma over the left frontal convexity with a hematoma component layering dependently. This measures 1.5 cm in thickness and contributes to 5mm rightward shift of the midline structures. Chronic age related changes. X-ray of the lumbar spine at [facility] on 08/24/17: Scoliosis with mild degenerative changes and spondylolisthesis. Assessment/Plan Diagnoses and all orders for this visit: Parkinson's disease without dyskinesia, unspecified whether manifestations fluctuate (CMS/HCC) It is my impression that the patient has PD which is likely idiopathic. He has been working with therapy and is doing well with this (currently PT 2 times a week). The patient does have concurrent cognitive impairment and MOCA in 2020 was 16/30 with 2/5 recall. Ongoing consideration that his significant hearing deficits playing a role here. It does seem that his cognition has been on a steady decline, no acute cognitive changes. Today patient/spouse feels this is stable and his denies any safety concerns. PLAN: - Continue Sinemet IR 25/100 1.5 tablets 4x/day (8am, 11am, 2pm, 5/6pm) - Continue PT (currently 2 x week) - Could consider the addition of entacapone in the future ( admits to some rare episodes of what sounds to be freezing of gait though she does admit to some missed/late doses of sinemet. will monitor for correlation and we will revisit this at follow up). - Failed donepezil and memantine previously due to nightmares - Okay to use melatonin for sleep - Encouraged regular use of the walker to help with stability and mitigate fall risk. Fall risks discussed in detail. - Recommended adequate hydration, sleep hygiene, brain stimulating activity and compensatory memory techniques Cognitive impairment Cognitive impairment likely Parkinsons related versus Alzheimers type dementia though he also has vascular disease. MOCA in 2020 was with 2/5 recall; though his hearing deficits are likley playing a role here as stated above. Patient and feel this is stable today with no new concerns. PLAN: - Failed donepezil and memantine due to nightmares; further treatment with memory stabilizing agents not likely to have a significant impact at this point and the patient's agrees. - Could consider repeat MOCA though not likely to change treatment at this time - Recommended adequate hydration, sleep hygiene, brain stimulating activity and compensation techniques Cerebrovascular accident (CVA), unspecified mechanism (CMS/HCC) History of CVA. He continues on ASA 81 mg daily and is no longer taking Plavix due to history of a fall with a subsequent subdural hematoma (this was per the recommendations of neurosurgery). Repeat of CT of the head on 03/26/2022 showed no evidence of acute or remote intracranial hemorrhage. PLAN: - No longer following neurosurgery per - Continue aspirin 81 mg po daily and statin (managed by PCP) - Continue tight BP control - Patient again educated on signs and symptoms of stroke and advised to seek emergent evaluation in the ED should any such s/s develop. The patient/ verbalized understanding. Carotid artery disease, unspecified laterality, unspecified type (CMS/HCC) Patient with a history of carotid disease and is status post surgical intervention; doing well. PLAN: - See above. Follow up in 1-2 months or sooner if symptoms worsen, fail to improve, or should a new neurological concern arise. Pt has been fully educated on their diagnosis, treatment options, follow up plan, and return instructions documented in this encounter [facility] 11-25-2023 History of Present illness Narrative Images from the original note were not included. Mohs Surgery Location: Nasal tip Date of biopsy: 09/15/2023 Diagnosis: Basal Cell Carcinoma All pertinent medical history, medications, and allergies were reviewed. General Exam: alert , oriented to person, place, and time , normal affect, well appearing uses a cane Accompanied by daughter (Genoveva) A focused exam completed based on patient reported problems, see below: 1. 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 Mohs surgery Consent obtained: written (The rationale for Mohs as well as the risks, benefits, and alternatives. The risks of infection, scarring, bleeding, prolonged wound healing, incomplete removal, allergy to anesthesia or meds, nerve injury, and recurrence were addressed.) [place] Protocol: Procedure explained and questions answered to patient or proxy's satisfaction: Yes Test results available and properly labeled: Yes Pathology report reviewed: Yes Photo or diagram used for site identification: Yes Site/side marked: Yes Anticoagulation: Is the patient taking prescription anticoagulant and/or aspirin prescribed/recommended by a physician? Yes (81 mg ASA) Was the anticoagulation regimen changed prior to Mohs? No Anesthesia: Anesthesia method: local infiltration Local anesthetic: lidocaine 1% WITH epi and sodium bicarbonate Procedure Details: Biopsy accession number: [id number] Biopsy lab: [facility] Date of biopsy: 09/15/2023 Frozen section biopsy performed: Yes Specimen debulked: No Pre-Op diagnosis: basal cell carcinoma BCC subtype: nodular MohsAIQ Surgical site (if tumor spans multiple areas, please select predominant area): nose Surgery side: midline Surgical site (from skin exam): Nasal tip Pre-operative length (cm): 1 Pre-operative width (cm): 0.7 Indications for Mohs surgery: anatomic location where tissue conservation is critical Other indications for Mohs surgery: Central face Previously treated? No Mohs Appropriate Use Criteria Score: 8 Details of micrographic surgery: Mohs accession number: [id number] Micrographic Surgery Details: Post-operative length (cm): 1.5 Post-operative width (cm): 1.3 Number of Mohs stages: 2 Stage 1 Comments: The area was prepped with Betadine, draped in a sterile fashion, and infiltrated with local anesthetic. Sterile technique was used throughout the procedure. The marked area of clinical tumor with a small rim of clinically normal surrounding skin was removed using Mohs technique with beveled edges. Hash desai were placed for orientation of the specimen. Hemostasis was achieved with electrodessication. After hemostasis, the defect was measured and recorded, a temporary sterile dressing was placed over the wound, and the patient was escorted to the waiting area. The specimen was oriented, mapped, and if necessary, divided into sections. A Mohs map was prepared. The specimen was placed in a labeled ramon dish and was taken to the Mohs lab where it was chromacoded and processed. Mohs sections were prepared with serial tissue sections, stained, and evaluated by Dr. Harris for interpretation of deep and peripheral margins. The Mohs map was marked accordingly. Amount of lidocaine used: 1.5 cc Estimated blood loss: <1.0 cc Defect size: 1.4 x 1.0 cm Number of blocks per stage: 1 Number of positive blocks: 1 Tumor features identified on Mohs section: basal carcinoma Tumor features identified on Mohs section comment: nodular pattern Depth of defect after stage: dermis Stage 2 Comments: The patient returned to the procedure room, the dressing was remove, the tumor area was re-prepped and draped, and anesthesia was assessed and augmented as necessary. A layer of tissue around the positive margin(s) was removed, and the tissue was oriented, mapped, and processed in an identical fashion as for Stage 1. Hemostasis was achieved and dressing placed as in Stage 1. The patient was escorted to the waiting area. As with Stage 1, Mohs sections were prepared with serial tissue sections, stained, and evaluated by Dr. Harris for interpretation of deep and peripheral margins. The Mohs map was updated. Assistants: Sujata Campbell MA Amount of lidocaine used: 2.0 cc Estimated blood loss: <1.0 cc Defect size: 1.5 x 1.3 cm Number of blocks: 1 Number of positive blocks: 0. Tumor free margins were obtained and the Mohs procedure was considered complete. Tumor features identified on Mohs section: no tumor identified Depth of defect after stage comment: Deep dermis Patient tolerance of procedure: tolerated well, no immediate complications Reconstruction: Was the defect reconstructed?: No Antibiotics: Were antibiotics given on the day of surgery? Yes When were antibiotics given? post-operative Mohs Post Operative Type of repair: None. Wound to heal by secondary intention. Wound Care: A dressing was placed on the surgical wound. Post-operative instructions were given in writing and were reviewed with the patient and family member. A follow-up appointment as made, and instructions were given to follow-up sooner if necessary. Related Medications cephalexin (Keflex) 500 MG capsule Take 1 capsule, by mouth, bid, 10 days Next visit: 08/01/2024 documented in this encounter [facility] 11-17-2023 Hospital Discharge instructions Patient Education 11/17/2023 13:33:27 Dietary Guidelines to Help Prevent Kidney Stones Dietary Guidelines to Help Prevent Kidney Stones Kidney stones are deposits of minerals and salts that form inside your kidneys. Your risk of developing kidney stones may be greater depending on your diet, your lifestyle, the medicines you take, and whether you have certain medical conditions. Most people can lower their risks of developing kidney stones by following these dietary guidelines. Your dietitian may give you more specific instructions depending on your overall health and the type of kidney stones you tend to develop. What are tips for following this plan? Reading food labels Choose foods with no salt added or low-salt labels. Limit your salt (sodium) intake to less than 1,500 mg a day. Choose foods with calcium for each meal and snack. Try to eat about 300 mg of calcium at each meal. Foods that contain 200 500 mg of calcium a serving include: ?8 oz (237 mL) of milk, dcbemyj-abisuneuhqkx-mxhhz milk, and calcium-fortifiedfruit juice. Calcium-fortified means that calcium has been added to these drinks. ?8 oz (237 mL) of kefir, yogurt, and soy yogurt. ?4 oz (114 g) of tofu. ?1 oz (28 g) of cheese. ?1 cup (150 g) of dried figs. ?1 cup (91 g) of cooked broccoli. ?One 3 oz (85 g) can of sardines or mackerel. Most people need 1,000 1,500 mg of calcium a day. Talk to your dietitian about how much calcium is recommended for you. Shopping Buy plenty of fresh fruits and vegetables. Most people do not need to avoid fruits and vegetables, even if these foods contain nutrients that may contribute to kidney stones. When shopping for convenience foods, choose: ?Whole pieces of fruit. ?Pre-made salads with dressing on the side. ?Low-fat fruit and yogurt smoothies. Avoid buying frozen meals or prepared deli foods. These can be high in sodium. Look for foods with live cultures, such as yogurt and kefir. Choose high-fiber grains, such as whole-wheat breads, oat bran, and wheat cereals. Cooking Do not add salt to food when cooking. Place a salt shaker on the table and allow each person to add their own salt to taste. Use vegetable protein, such as beans, textured vegetable protein (TVP), or tofu, instead of meat in pasta, casseroles, and soups. Meal planning Eat less salt, if told by your dietitian. To do this: ?Avoid eating processed or pre-made food. ?Avoid eating fast food. Eat less animal protein, including cheese, meat, poultry, or fish, if told by your dietitian. To do this: ?Limit the number of times you have meat, poultry, fish, or cheese each week. Eat a diet free of meat at least 2 days a week. ?Eat only one serving each day of meat, poultry, fish, or seafood. ?When you prepare animal proteins, cut pieces into small portion sizes. For most meat and fish, one serving is about the size of the palm of your hand. Eat at least five servings of fresh fruits and vegetables each day. To do this: ?Keep fruits and vegetables on hand for snacks. ?Eat one piece of fruit or a handful of berries with breakfast. ?Have a salad and fruit at lunch. ?Have two kinds of vegetables at dinner. You may be told to limit foods that are high in a substance called oxalate. These include: ?Spinach (cooked), rhubarb, beets, sweet potatoes, and Ukrainian chard. ?Peanuts. ?Potato chips, micronesian fries, and baked potatoes with skin on. ?Nuts and nut products. ?Chocolate. If you regularly take a diuretic medicine, make sure to eat at least 1 or 2 servings of fruits or vegetables that are high in potassium each day. These include: ?Avocado. ?Banana. ?[place], prune, carrot, or tomato juice. ?Baked potato. ?Cabbage. ?Beans and split peas. Lifestyle Drink enough fluid to keep your urine pale yellow. This is the most important thing you can do. Spread your fluid intake throughout the day. If you drink alcohol: ?Limit how much you have to: ?0 1 drink a day for women who are not . ?0 2 drinks a day for men. ?Know how much alcohol is in your drink. In the [place] one drink equals one 12 oz bottle of beer (355 mL), one 5 oz glass of wine (148 mL), or one 1 oz glass of hard liquor (44 mL). Lose weight if told by your health care provider. Work with your dietitian to find an eating plan and weight loss strategies that work best for you. General information Talk to your health care provider and dietitian about taking daily supplements. Depending on your health and the cause of your kidney stones, you may be told: ?Do not take high-dose supplements of vitamin C (1,000 mg a day or more). ?To take a calcium supplement. ?To take a daily probiotic supplement. ?To take other supplements such as magnesium, fish oil, or vitamin B6. Take achs-ahx-myzjvcd and prescription medicines only as told by your health care provider. These include supplements. What foods should I limit? Limit your intake of the following foods, or eat them as told by your dietitian. Vegetables Spinach. Rhubarb. Beets. Canned vegetables. Pickles. Olives. Baked potatoes with skin. Grains Wheat bran. Baked goods. Salted crackers. Cereals high in sugar. Meats and other proteins Nuts. Nut butters. Large portions of meat, poultry, or fish. Salted, precooked, or cured meats, such as sausages, meat loaves, and hot dogs. Dairy Cheeses. Beverages Regular soft drinks. Regular vegetable juice. Seasonings and condiments Seasoning blends with salt. Salad dressings. Soy sauce. Ketchup. Barbecue sauce. Other foods Canned soups. Canned pasta sauce. Casseroles. Pizza. Lasagna. Frozen meals. Potato chips. Amharic fries. The items listed above may not be a complete list of foods and beverages you should limit. Contact a dietitian for more information. What foods should I avoid? Talk to your dietitian about specific foods you should avoid based on the type of kidney stones you have and your overall health. Fruits Grapefruit. The item listed above may not be a complete list of foods and beverages you should avoid. Contact a dietitian for more information. Summary Kidney stones are deposits of minerals and salts that form inside your kidneys. You can lower your risk of kidney stones by making changes to your diet. The most important thing you can do is drink enough fluid. Drink enough fluid to keep your urine pale yellow. Talk to your dietitian about how much calcium you should have each day, and eat less salt and animal protein as told by your dietitian. This information is not intended to replace advice given to you by your health care provider. Make sure you discuss any questions you have with your health care provider. Document Revised: 06/12/2022 Document Reviewed: 06/12/2022 [employer] Patient Education 2023 [employer]. 11/17/2023 13:33:26 Hematuria, Adult Hematuria, Adult Hematuria is blood in the urine. Blood may be visible in the urine, or it may be identified with a test. This condition can be caused by infections of the bladder, urethra, kidney, or prostate. Other possible causes include: Kidney stones. Cancer of the urinary tract. Too much calcium in the urine. Conditions that are passed from parent to child (inherited conditions). Exercise that requires a lot of energy. Infections can usually be treated with medicine, and a kidney stone usually will pass through your urine. If neither of these is the cause of your hematuria, more tests may be needed to identify the cause of your symptoms. It is very important to tell your health care provider about any blood in your urine, even if it is painless or the blood stops without treatment. Blood in the urine, when it happens and then stops and then happens again, can be a symptom of a very serious condition, including cancer. There is no pain in the initial stages of many urinary cancers. Follow these instructions at home: Medicines Take tcak-lic-nfngyfp and prescription medicines only as told by your health care provider. If you were prescribed an antibiotic medicine, take it as told by your health care provider. Do not stop taking the antibiotic even if you start to feel better. Eating and drinking Drink enough fluid to keep your urine pale yellow. It is recommended that you drink 3 4 quarts (2.8 3.8 L) a day. If you have been diagnosed with an infection, drinking cranberry juice in addition to large amounts of water is recommended. Avoid caffeine, tea, and carbonated beverages. These tend to irritate the bladder. Avoid alcohol because it may irritate the prostate (in males). General instructions If you have been diagnosed with a kidney stone, follow your health care provider's instructions about straining your urine to catch the stone. Empty your bladder often. Avoid holding urine for long periods of time. If you are female: ?After a bowel movement, wipe from front to back and use each piece of toilet paper only once. ?Empty your bladder before and after sex. Pay attention to any changes in your symptoms. Tell your health care provider about any changes or any new symptoms. It is up to you to get the results of any tests. Ask your health care provider, or the department that is doing the test, when your results will be ready. Keep all follow-up visits. This is important. Contact a health care provider if: You develop back pain. You have a fever or chills. You have nausea or vomiting. Your symptoms do not improve after 3 days. Your symptoms get worse. Get help right away if: You develop severe vomiting and are unable to take medicine without vomiting. You develop severe pain in your back or abdomen even though you are taking medicine. You pass a large amount of blood in your urine. You pass blood clots in your urine. You feel very weak or like you might faint. You faint. Summary Hematuria is blood in the urine. It has many possible causes. It is very important that you tell your health care provider about any blood in your urine, even if it is painless or the blood stops without treatment. Take hafo-rvd-zwfgkjo and prescription medicines only as told by your health care provider. Drink enough fluid to keep your urine pale yellow. This information is not intended to replace advice given to you by your health care provider. Make sure you discuss any questions you have with your health care provider. Document Revised: 10/31/2020 Document Reviewed: 10/31/2020 [employer] Patient Education 2023 [employer]. Follow Up Care 10/29/2023 15:35:09 With:CONNOR Joel APRN, Priti Daniels, ALOK, URL Address: When: Unknown Comments:6 months with [facility] 11-17-2023 Evaluation + Plan note Diagnostic Tests PendingUrine Culture 11/17/23 [facility] 11-17-2023 Note Patient Education Nephrology Dietary Guidelines to Help Prevent Kidney Stones Kidney stones are deposits of minerals and salts that form inside your kidneys. Your risk of developing kidney stones may be greater depending on your diet, your lifestyle, the medicines you take, and whether you have certain medical conditions. Most people can lower their risks of developing kidney stones by following these dietary guidelines. Your dietitian may give you more specific instructions depending on your overall health and the type of kidney stones you tend to develop. What are tips for following this plan? Reading food labels ? Choose foods with no salt added or low-salt labels. Limit your salt (sodium) intake to less than 1,500 mg a day. ? Choose foods with calcium for each meal and snack. Try to eat about 300 mg of calcium at each meal. Foods that contain 200?500 mg of calcium a serving include: ? 8 oz (237 mL) of milk, uxkjdep-axtgckiuvuxq-kxsfy milk, and calcium-fortifiedfruit juice. Calcium-fortified means that calcium has been added to these drinks. ? 8 oz (237 mL) of kefir, yogurt, and soy yogurt. ? 4 oz (114 g) of tofu. ? 1 oz (28 g) of cheese. ? 1 cup (150 g) of dried figs. ? 1 cup (91 g) of cooked broccoli. ? One 3 oz (85 g) can of sardines or mackerel. Most people need 1,000?1,500 mg of calcium a day. Talk to your dietitian about how much calcium is recommended for you. Shopping ? Buy plenty of fresh fruits and vegetables. Most people do not need to avoid fruits and vegetables, even if these foods contain nutrients that may contribute to kidney stones. ? When shopping for convenience foods, choose: ? Whole pieces of fruit. ? Pre-made salads with dressing on the side. ? Low-fat fruit and yogurt smoothies. ? Avoid buying frozen meals or prepared deli foods. These can be high in sodium. ? Look for foods with live cultures, such as yogurt and kefir. ? Choose high-fiber grains, such as whole-wheat breads, oat bran, and wheat cereals. Cooking ? Do not add salt to food when cooking. Place a salt shaker on the table and allow each person to add their own salt to taste. ? Use vegetable protein, such as beans, textured vegetable protein (TVP), or tofu, instead of meat in pasta, casseroles, and soups. Meal planning ? Eat less salt, if told by your dietitian. To do this: ? Avoid eating processed or pre-made food. ? Avoid eating fast food. ? Eat less animal protein, including cheese, meat, poultry, or fish, if told by your dietitian. To do this: ? Limit the number of times you have meat, poultry, fish, or cheese each week. Eat a diet free of meat at least 2 days a week. ? Eat only one serving each day of meat, poultry, fish, or seafood. ? When you prepare animal proteins, cut pieces into small portion sizes. For most meat and fish, one serving is about the size of the palm of your hand. ? Eat at least five servings of fresh fruits and vegetables each day. To do this: ? Keep fruits and vegetables on hand for snacks. ? Eat one piece of fruit or a handful of berries with breakfast. ? Have a salad and fruit at lunch. ? Have two kinds of vegetables at dinner. ? You may be told to limit foods that are high in a substance called oxalate. These include: ? Spinach (cooked), rhubarb, beets, sweet potatoes, and Ukrainian chard. ? Peanuts. ? Potato chips, micronesian fries, and baked potatoes with skin on. ? Nuts and nut products. ? Chocolate. ? If you regularly take a diuretic medicine, make sure to eat at least 1 or 2 servings of fruits or vegetables that are high in potassium each day. These include: ? Avocado. ? Banana. ? [place], prune, carrot, or tomato juice. ? Baked potato. ? Cabbage. ? Beans and split peas. Lifestyle ? Drink enough fluid to keep your urine pale yellow. This is the most important thing you can do. Spread your fluid intake throughout the day. ? If you drink alcohol: ? Limit how much you have to: ? 0?1 drink a day for women who are not . ? 0?2 drinks a day for men. ? Know how much alcohol is in your drink. In the [place] one drink equals one 12 oz bottle of beer (355 mL), one 5 oz glass of wine (148 mL), or one 1? oz glass of hard liquor (44 mL). ? Lose weight if told by your health care provider. Work with your dietitian to find an eating plan and weight loss strategies that work best for you. General information ? Talk to your health care provider and dietitian about taking daily supplements. Depending on your health and the cause of your kidney stones, you may be told: ? Do not take high-dose supplements of vitamin C (1,000 mg a day or more). ? To take a calcium supplement. ? To take a daily probiotic supplement. ? To take other supplements such as magnesium, fish oil, or vitamin B6. ? Take ypbc-uhu-rjlbnyp and prescription medicines only as told by your health care provider. These include suppleme (more content not included)... [facility] 11-09-2023 History of Present illness Narrative Images from the original note were not included. Subjective Patient ID: Tammi Patel is a 88 y.o. male who presents for Nail care (Tammi Patel is a 88 y.o. male who presents for Toenail Care (SS: 11).). HPI HPI Onychomycosis/Toenail Fungus: presents today requesting nail care. Location: patient indicates that all digits are problematic/symptomatic; deformed discolored toenails. Duration: Insidious, chronic condition, years duration. Severity of symptoms: mild-moderate, impacting his ability to wear most shoes comfortably. Onset: gradual, without injury or trauma. Status: Problematic/symptomatic again over the past several weeks or so. Context: hard to trim , hard to reach ; self-care is difficult and not practical; exposing patient to considerable risk. Family members unable to provide effective care. Characteristics: elongated, discolored, thickened, pain , ingrowing, pressure; without bleeding or drainage. Relieved by: Palliative care provides effective transient symptom relief. Previous Treatment: palliative care as noted. Risk factors: Parkinson's disease. Medical comorbidities. Aspirin therapy. Mobility, flexibility and dexterity restraints. toenail deformity. Shoe trauma and associated complications. Aggravated by: shoe gear , pressure, walking , snagging on clothing etc.. Medications Current Outpatient Medications: amLODIPine (Norvasc) 5 MG tablet, Take by mouth Daily., Disp: , Rfl: aspirin 81 MG EC tablet, Take 81 mg by mouth in the morning., Disp: , Rfl: atorvastatin (Lipitor) 40 MG tablet, Take 40 mg by mouth in the morning., Disp: , Rfl: carbidopa-levodopa (Sinemet) 25-100 MG tablet, 1.5 tabs po QID, Disp: 540 tablet, Rfl: 1 ciclopirox (Loprox) 0.77 % cream, Apply to armpits once a day/30 day supply, Disp: 30 g, Rfl: 11 docusate sodium (Colace) 100 MG capsule, Take 100 mg by mouth in the morning and 100 mg before bedtime., Disp: , Rfl: ergocalciferol (Vitamin D-2) 1.25 MG (72128 UT) capsule, Take 1.25 mg by mouth 1 (one) time per week., Disp: , Rfl: hydroCHLOROthiazide (HYDRODiuril) 12.5 MG tablet, Take 12.5 mg by mouth in the morning., Disp: , Rfl: latanoprost (Xalatan) 0.005 % ophthalmic solution, instill 1 DROP IN BOTH EYES EVERY NIGHT, Disp: , Rfl: metoprolol succinate XL (Toprol-XL) 25 MG 24 hr tablet, Take by mouth. Do not crush or chew., Disp: , Rfl: nystatin (Mycostatin) 128108 UNIT/GM powder, Apply to armpits twice a day when needed, 30 day supply, Disp: 30 g, Rfl: 11 potassium chloride ER (Micro-K) 10 MEQ ER capsule, Take 10 mEq by mouth in the morning and 10 mEq before bedtime. Do not crush or chew. ., Disp: , Rfl: psyllium (Metamucil) 58.6 % powder, Take 3 g of fiber by mouth in the morning and 3 g of fiber before bedtime., Disp: , Rfl: tamsulosin (Flomax) 0.4 MG 24 hr capsule, Take 0.4 mg by mouth in the morning., Disp: , Rfl: Allergies Patient has no known allergies. Past Surgical History Past Surgical History: Procedure Laterality Date BASAL CELL CARCINOMA EXCISION 09/01/2018 on the chest CATARACT EXTRACTION CHOLECYSTECTOMY COLONOSCOPY CT GUIDED TRANSVAGINAL TRANSRECTAL FLUID DRAIN 01/12/2019 CT GUIDED TRANSVAGINAL TRANSRECTAL FLUID DRAIN 01/12/2019 CYSTOSCOPY 2011 with lithotripsy, basket extraction, ureteral dilatation, Dr. Urbina HERNIA REPAIR HERNIA REPAIR Left KIDNEY STONE SURGERY LITHOTRIPSY LITHOTRIPSY OTHER SURGICAL HISTORY Right 01/2019 Right carotid endarterectomy with patch OTHER SURGICAL HISTORY 07/2021 Brain Bleed Sx [facility] [place] LAP,CHOLECYSTECTOMY 2013 Dr. Louise PROSTATECTOMY TOTAL KNEE ARTHROPLASTY TOTAL KNEE ARTHROPLASTY Right Family History Family History Problem Relation Name Age of Onset Heart disease Mother Stroke Father Cancer Sister Cancer Brother Thyroid disease Daughter Melanoma Neg Hx Objective General Examination: GENERAL EXAMINATION: Alert and oriented. pleasant disposition. Ambulatory with cane assist. His spouse, Anny is present. Vascular: DORSALIS PEDIS PULSE: bilaterally, 2/4. POSTERIOR TIBIAL PULSE: bilaterally, 1/4. TEMPERATURE GRADIENT: warm to warm. EDEMA: unremarkable for ankle edema. CAPILLARY FILLING TIME(sec): capillary fill intact bilateral digits less than 3 secs. Neurologic: MUSCLE POWER: No focal deficits. SHARP SENSATION: Tactile and soft touch sensation intact. Dermatologic: SKIN FINDINGS: Intact, skin turgor is good. HYPERTROPHIC LESION: No forefoot or digital keratotic pressure lesions are noted. NAIL PATHOLOGY: Digits 1, 2 bilateral: Toenail dystrophy,, thickening, elongation, discoloration, pincer deformity, clubbing, crumbly texture, subtotal detachment, periungual hyperkeratotic debris, without drainage. Digits 3, 4, 5 bilateral: Varying degrees of toenail dystrophy and discoloration. INGROWN NAIL PATHOLOGY: bilateral great toes. MYCOSIS SCALE: total with debris; multiple digits. INTERDIGITAL MACERATION: Clean, dry, non-inflamed. ULCER: no sign of ulceration or open wound . SKIN PATHOLOGY: texture, turgor, hair growth, within normal limits. Ankle / Foot: FOOT: No areas of musculoskeletal tenderness identified. RANGE OF MOTION: functional passive range of motion without pain . Radiology: Assessment/Plan 1. 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 2. Parkinson's disease. Plan: Notes: conservative and palliative care measures are preferred, understood and again indicated. Patient expresses no interest in oral therapy. Topical therapy is difficult for him and not practical. Hygiene and skin care measures discussed. Procedure: Toenail Debridement: Aseptic technique: power/manual instrumentation: onychodebridement length and thickness, curretage of offending crypotic margins, divya-ungual debris, providing effective pressure and symptom relief, reducing shoe and digital trauma. This note was created with the assistance of a speech recognition program. While intending to generate a timely document that accurately reflects the content of the visit, no guarantee can be provided that every grammatical or spelling mistake has been or will be identified or corrected. Thank you for your understanding. Asia Sexton DPM documented in this encounter [facility] 11-09-2023 Instructions Asia Sexton DPM - 11/09/2023 10:45 AM EDT As noted documented in this encounter [facility] 05-18-2023 Hospital Discharge instructions Patient Education 05/18/2023 [...] urethra. Follow these instructions at home: Take dwce-hcg-iafvyxg and prescription medicines only as told by [...] provider. Document Revised: 09/18/2021 Document Reviewed: 09/18/2021 [employer] Patient Education 2022 [employer]. Follow Up Care 05/01/2023 14:20:13 With:CIARA SALAZAR, BARBIE Burns Address: [facility] [address], [place] [address]- [phone] When:Within 6 Month(s) Comments:6 mo fu with PVR scan [facility] 05-01-2023 Note [id number]#[id number] [facility] 04-28-2023 Note [id number]#1.00TIFF [facility] 03-30-2023 Evaluation note Encounter Date Diagnosis Assessment Notes Mar, Primary hypertension (ICD-10 - I10) General Compression Other 01-03-2024 Evaluation note* Encounter Date Diagnosis Assessment Notes Treatment Notes Treatment Clinical Notes Mar, Vitamin D deficiency (ICD-10 - E55.9) General Compression Other 12-04-2023 Hospital Discharge instructions Patient Education [...] including vitamins, herbs, eye drops, creams, and katu-qxt-rullxdr medicines. Any problems you or family members [...] provider tells you to take them. Taking uwsw-qcc-qwgnhkn medicines, vitamins, herbs, and supplements. Tests You [...] Follow these instructions at home: Medicines Take ocvq-dit-apmypcy and prescription medicines only as told by [...] provider. Document Revised: 11/13/2021 Document Reviewed: 10/12/2020 [employer] Patient Education 2022 [employer]. Follow Up Care 01/15/2022 10:12:17 With:CIARA SALAZAR, Jourdan Anderson, URL Address: [facility] [address] [place] [address]- [phone] When: Unknown [facility]04[facility]23 NoteUrology Cystoscopy Cystoscopy is a procedure [...] including vitamins, herbs, eye drops, creams, and pdxl-srp-ekrupef medicines. ? Any problems you or family [...] tells you to take them. ? Taking rfiq-ybq-khojlqy medicines, vitamins, herbs, and supplements. Tests You [...] these instructions at home: Medicines ? Take jedz-qlv-rjmbyxy and prescription medicines only as told by [...] or the department th (more content not included)...[facility] 02-12-2023 Evaluation note* Encounter Date Diagnosis [...] treatment in ER COntinue secondary preventive measures. General Compression Other [id number] History of Present illness Narrative* Kaiser Gómez MD - 01/26/2023 9:00 AM EST Subjective Tammi Erum Patel is a 87 y.o. 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 He continues to travel to [place] annually to be evaluated by the vascular [...] , Rfl: ergocalciferol (Vitamin D-2) 1.25 MG (15626 UT) capsule, Take 1 capsule (1,250 mcg) [...] stenosis Followed by his vascular surgeon in [place] documented in this [facility] Work Phone: 1(563) 283-749311-13-2023 Instructions* Patient Instructions* Gentry Corona MA - [...] time of your visit. documented in this [facility] Work Phone: 1(712) 835-846508-31-2023 Evaluation note* Encounter Date Diagnosis Assessment Notes [...] Continue oral vitamin D every 2 weeks. General Compression Other 06-27-2023 Evaluation note* Encounter Date Diagnosis Assessment Notes Treatment Notes Treatment Clinical Notes Aug, Stage 3a chronic kidney disease (ICD-10 - N18.31) General Compression Other 02-14-2023 Evaluation note* Encounter Date Diagnosis Assessment Notes Treatment Notes Treatment Clinical Notes Apr, Elevated cholesterol (ICD-10 - E78.00) General Compression Other 02-02-2023 Evaluation note* Encounter Date Diagnosis Assessment Notes Treatment Notes Treatment Clinical Notes Apr, Luisito danilo vidal w cr kid I-IV (ICD-10 - [...] Change oral vitamin D every 2 weeks. General Compression Other 12-27-2022 Evaluation note* Encounter Date Diagnosis Assessment Notes Treatment Notes Treatment Clinical Notes Feb, Vitamin D deficiency (ICD-10 - E55.9) General Compression Other 07-07-2022 Evaluation note* Encounter Date Diagnosis [...] Dr. Horowitz. 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 General Compression Other 07-07-2022 Evaluation note* Encounter Date Diagnosis Assessment Notes Treatment Notes Treatment Clinical Notes Sep, Vitamin D deficiency (ICD-10 - E55.9) General Compression Other 05-16-2022 Evaluation note* Encounter Date Diagnosis Assessment Notes Treatment Notes Treatment Clinical Notes July, Subacute subdural hematoma (ICD-10 - S06.5X9A) The patient will increase his activities as tolerated and we will see him back in about 3 weeks, when he is about a month out from surgery for a repeat CT scan without contrast. General Compression Other 05-01-2022 History general Narrative - Reported* [...] 12/2018 Surgical History BRAIN BLEED SURGERY IN [facility] 07/2021 Hospitalization History See past surgical hx Hospitalization History KIDNEY STONES General Compression Other Evaluation + Plan note No data available for this section [facility] [place] evaluation + Plan note Future Appointments Appointment Date:04/28/2023 11:00:00 AM Scheduled Provider: Location:[facility] Appointment Type:Urology FT [facility] [place] Evaluation + Plan note Future Appointments Appointment Date:11/23/2023 10:30:00 AM Scheduled Provider:Jourdan URBINA MD Location:[facility] [place] Appointment Type:URO Office Visit [facility] evaluation noteNo [facility] Other Evaluation note* Diagnosis Mixed hyperlipidemia- Primary Ventricular tachycardia, paroxysmal (CMS/HCC) TIA (transient ischemic attack) Unspecified transient cerebral ischemia History of right-sided carotid endarterectomy Essential hypertension Unspecified essential hypertension Bilateral carotid artery stenosis Occlusion and stenosis of carotid artery without mention of cerebral infarction documented in this encounter [facility] Work Phone: Evaluation note* Diagnosis Onset Date Resolution Status CKD (chronic kidney disease) stage 3, GFR 30-59 ml/min acute [id number] acute Hyperuricemia acute Secondary hyperparathyroidism acute Thrombocytopenia acute Urinary retention due to benign prostatic hyperplasia acute [facility] Work Phone: evaluation note* Diagnosis Onset Date Resolution Status Hyperuricemia acute Secondary hyperparathyroidism acute Urinary retention due to luisito ign prostatic hyperplasia acute Benign prostatic hyperplasia with lower urinary tract symptoms acute Chronic kidney disease acute Essential (primary) hypertension acute Indwelling Dias catheter present noneactive Gross hematuria noneactive [facility] Work Phone: evaluation note* Diagnosis Onset Date Resolution Status Hyperuricemia acute Secondary hyperparathyroidism acute Chronic kidney disease acute Essential (primary) hypertension acute Indwelling Dias catheter present noneactive Gross hematuria noneactive Benign prostatic hyperplasia with lower urinary tract symptoms acute Chronic kidney disease acute Essential (primary) hypertension acute Thrombocytopenia acute Epididymo-orchitis, acute no neactive [facility] Work Phone: Evaluation note* Diagnosis Onset Date Resolution Status Benign prostatic hyperplasia with lower urinary tract symptoms acute Chronic kidney disease acute Essential (primary) hypertension acute Thrombocytopenia acute Epididymo-orchitis, acute no neactive [facility] Work Phone: Evaluation note* Diagnosis Onset Date Resolution Status Benign prostatic hyperplasia with lower urinary tract symptoms acute Carotid stenosis acute Cerebral atherosclerosis acu te Chronic kidney disease acute Essential (primary) hypertension acute Peripheral artery disease ac stephane Thrombocytopenia acute [facility] Work Phone: Evaluation note* Diagnosis Onset Date Resolution Status Benign prostatic hyperplasia with lower urinary tract symptoms acute Carotid stenosis acute Cerebral atherosclerosis acu te Chronic kidney disease acute Essential (primary) hypertension acute Peripheral artery disease ac stephane Thrombocytopenia acute Chronic kidney disease acute COVID acute Essential (primary) hypertension acute [facility] Work Phone: Evaluation note* Diagnosis Parkinson's disease without dyskinesia, unspecified whether manifestations fluctuate (CMS/HCC)- Primary Cognitive impairment Unspecified persistent mental disorders due to conditions classified elsewhere Cerebrovascular accident (CVA), unspecified mechanism (CMS/HCC) Carotid artery disease, unspecified laterality, unspecified type (CMS/HCC) documented in this encounter [facility] HealthcareEvaluation note* Diagnosis Dermatophytosis of nail- Primary Dystrophic nail Other specified disease of nail Pain around toenail, right foot Pain around toenail, left foot documented in this encounter [facility] HealthcareEvaluation note* Diagnosis Dermatophytosis of nail- Primary Dystrophic nail Other specified disease of nail Pain around toenail, right foot Pain around toenail, left foot documented in this encounter [facility] HealthcareEvaluation note* Diagnosis 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 documented in this encounter [facility] HealthcareHistory general Narrative - Reported* Type Description Date Medical History Kidney stones Medical History Enlarged Prostate Medical History TIA Surgical History Lithotripsy, multiple Surgical History Lap Rika 2013 Surgical History Total right knee surgery 1997 Surgical History Appendectomy Surgical History Hernia Surgical History UROLIFT 2017 Surgical History CAROTID RIGHT SIDE 12/2018 Hospitalization History See past surgical hx Hospitalization History KIDNEY STONES General Compression Other History of Present illness Narrative* Patient [...] merits of a modest diet were reviewed. [employer] Work Phone: History of Present illness NarrativePatient [...] merits of a modest diet and weight loss.[facility] Work Phone: Hospital Discharge instructions No data available for this section [facility] note No data available for this section [facility] reason for referral (narrative)* Consultation (Routine) - Authorized Specialty Diagnoses / Procedures Referred By Alex oconnell Referred To Contact Cardiology Diagnoses Bilateral carotid artery stenosis Procedures Follow Up In Cardiology Kaiser Gómez MD [address] [address] Kaiser Gómez MD [address] [place] [id number] Referral ID Status Reason Start Date Expiration Date V isits Requested Visits Authorized [id number] Authorized 01/26/2023 01/26/2024 1 1 [facility] Work Phone: Summary Purpose Family History Unknown [...] sister History of stroke Unknown Hypertension Unknown Relationship Condition Age at Onset Recorded Date/T rogelio brother Unknown Malignant neoplasm Unknown father Unknown mother History of stroke Unknown Unknown sister History of stroke Unknown Hypertension Unknown Advance Directives Advance Directive Response Recorded Date/ Time Advance Directives No August 26 2:14pm Advance Directive Response Recorded Date/ Time Advance Directives No August 26 3:14pm Chief Complaint TAMMI PATEL is being seen for an annual follow-up of.TAMMI PATEL is being seen for a 9 month follow-up of. 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 Chronic kidney disease Essential (primary) hypertension Indwelling Dias catheter present Gross hematuria Chief Complaint renal 6 month f/u [facility] ER Follow Up Amb Documentation [facility] follow up Reason for Visit Hyperuricemia Secondary hyperparathyroidism Chronic kidney disease Essential (primary) hypertension Indwelling Dias catheter present Gross hematuria Benign prostatic hyperplasia with lower urinary tract symptoms Chronic kidney disease Essential (primary) hypertension Thrombocytopenia Epididymo-orchitis, acute Chief Complaint Amb Documentation [facility] follow up UA Reason for Visit Benign prostatic hyp erplasia with lower urinary tract symptoms Chronic kidney disease Essential (primary) hypertension Thrombocytopenia Epididymo-orchitis, acute Chief Complaint UA 6 month follow up Reason for Visit Benign prostatic hyp erplasia with lower urinary tract symptoms Carotid stenosis Cerebral atherosclerosis Chronic kidney disease Essential (primary) hypertension Peripheral artery disease Thrombocytopenia Chief Complaint UA 6 month follow up [phone] COVID + Reason for Visit Benign prostatic hyp erplasia with lower urinary tract symptoms Carotid stenosis Cerebral atherosclerosis Chronic kidney disease Essential (primary) hypertension Peripheral artery disease Thrombocytopenia Chronic kidney disease COVID Essential (primary) hypertension Chief Complaint UA 6 month follow up [phone] COVID + TBH ER f/u:Constipation,Fecal Impaction Reason for Visit Benign prostatic hyp erplasia with lower urinary tract symptoms Carotid stenosis Cerebral atherosclerosis Chronic kidney disease Essential (primary) hypertension Peripheral artery disease Thrombocytopenia Chronic kidney disease COVID Essential (primary) hypertension Additional Source Comments (unrecognized sect ion and content) No Status Records FoundNo Status Records FoundNo Status Records FoundNo Status Records FoundNo Status Records FoundNo Status Records FoundNo Status Records FoundNo Status Records FoundNo Status Records FoundNo Status Records FoundNo Status Records FoundNo Status Records Found INFORMATION SOURCE (unrecogn ized section and content) DATE CREATED AUTHOR 09/17/2017 [facility] DATE CREATED AUTHOR AUTHOR'S ORGANIZ ATION 09/04/2018 [facility] DATE CREATED AUTHOR AUTHOR'S ORGANIZ ATION 01/16/2022 [facility] DATE CREATED AUTHOR AUTHOR'S ORGANIZ ATION 01/16/2022 [facility] DATE CREATED AUTHOR AUTHOR'S ORGANIZ ATION 04/19/2022 [facility] DATE CREATED AUTHOR AUTHOR'S ORGANIZ ATION 07/24/2022 [facility] DATE CREATED AUTHOR AUTHOR'S ORGANIZ ATION 09/15/2023 [facility] DATE CREATED AUTHOR AUTHOR'S ORGANIZ ATION 10/07/2023 [facility] DATE CREATED AUTHOR AUTHOR'S ORGANIZ ATION 11/21/2023 [facility] DATE CREATED AUTHOR AUTHOR'S ORGANIZ ATION 11/22/2023 [facility] DATE CREATED AUTHOR AUTHOR'S ORGANIZ ATION 02/10/2024 [facility] d[facility] Specialists EPIC REASON FOR VISIT (unrecogniz ed section and content) Reason Comments Annual Exam Reason Comments Parkinson's Disease Cognitive Impairment Cerebrovascular Accident Coronary Artery Disease Reason Comments Nail care Tammi Patel is a 88 y.o. male who presents for Toenail Care (SS: 11) Reason Comments Nail care Tammi Patel is a 88 y.o. male who presents for Toenail Care (SS: 11). Reason Comments [facility] Care Teams (unrecognized sec tion and content) Team Status: Active Member Role Status Dates Wilder Sam DO Primary Care Provider Active Team Status: Inactive Member Role Status Dates Wilder Sam DO Primary Care Provide r, Attending Provider Active Start: September 11, 2023 End: September 11, 2023 Team Status: Inactive Member Role Status Dates Wilder Sam DO Primary Care Provide r, Attending Provider Active Start: October 14, 2023 End: October 14, 2023 Team Status: Active Member Role Status Dates Wilder Sam DO Primary Care Provide r, Attending Provider Active Start: June 14, 2023 Team Status: Active Member Role Status Edis Sam DO Primary Care Provide r, Attending Provider Active Start: June 15, 2023 Team Status: Active Member Role Status Dates Wilder Sam DO Primary Care Provider Active Start: June 16, 2023 HEDY Min Attending Provider Active St art: June 16, 2023 Team Status: Inactive Member Role Status Edis Sam DO Primary Care Provide r, Attending Provider Active Start: June 17, 2023 End: June 17, 2023 Supervisor Tumbling And Rolling Relationship Specialty Start Date End Date Wilder Sam DO [address] [place] [id number] PCP - General 04/09/21 Team Status: Inactive Member Role Status Edis Sam DO Attending Provider Active Sta rt: February 12, 2023 End: February 12, 2023 Team Status: Inactive Member Role Status Edis Sam DO Primary Care Provider Active Start: April 30, 2023 End: April 30, 2023 Nabil Scott MD Attending Provider Active Start : April 30, 2023 End: April 30, 2023 Team Status: Inactive Member Role Status Edis Sam DO Primary Care Provide r, Attending Provider Active Start: May 08, 2023 End: May 08, 2023 Team Status: Inactive Member Role Status Edis Sam DO Primary Care Provide r, Attending Provider Active Start: December 01, 2023 End: December 01, 2023 Team Status: Active Member Role Status Edis Sma DO Primary Care Provider Active Start: December 07, 2023 Jojo Dela Cruz MD Attending Provider Active Sta rt: December 07, 2023 Team Status: Inactive Member Role Status Dates Wilder Ball , DO Primary Care Provide r, Attending Provider Active Start: December 09, 2023 End: December 09, 2023 Supervisor Tumbling And Rolling Relationship Specialty Start Date End Date Wilder Sam MD [address] [facility] [place] [phone] PCP - General Internal Medicine 09/22/22 Supervisor Tumbling And Rolling Relationship Specialty Start Date End Date Wilder Sam MD [address] [facility] [place] [address] PCP - General Internal Medicine 09/22/22 Supervisor Tumbling And Rolling Relationship Specialty Start Date End Date Wilder Sam MD [address] [facility] [place] [phone] PCP - General Internal Medicine 09/22/22 Supervisor Tumbling And Rolling Relationship Specialty Start Date End Date Wilder Sam MD [address] [facility] [place] [phone] PCP - General Internal Medicine 09/22/22 Supervisor Tumbling And Rolling Relationship Specialty Start Date End Date Wilder Sam MD [address] [facility] [place] [phone] PCP - General Internal Medicine 09/22/22 Supervisor Tumbling And Rolling Relationship Specialty Start Date End Date Wilder Sam MD [address] [facility] [place] [phone] PCP - General Internal Medicine 09/22/22 Goals (unrecognized section and content) Goals may [...] BE BASED ON THE PRIMARY CLINICAL RECORDS. [facility] [employer] [facility]. provides no warranty or guarantee of the accuracy or completeness of information in this document.
--- NOTE | 2024-03-05 01:50 | ED.MALEGU1 ---
HPI - Male Genitourinary General Chief complaint: Urogenital-Male Stated complaint: can not urinate Time Seen by Provider: 03/05/24 01:35 Source: patient Mode of arrival: walk-in History of Present Illness HPI Narrative: 88-year-old male presents to the emergency department because he is having trouble urinating. He states he has been dribbling on and off for the last day or 2. He has had urinary retention problems in the past and has had to have a catheter. He sees a urologist, Dr. Andres. No fever or gross hematuria or back pain and he tells me he is not constipated. Related Data Home Medications ?Medication ?Instructions ?Recorded ?Confirmed aspirin 81 mg tablet,delayed 81 mg PO DAILY 04/01/23 03/05/24 release (Adult Aspirin Regimen) hydrochlorothiazide 12.5 mg tablet 12.5 mg PO DAILY 04/01/23 03/05/24 lutein 25 mg-zeaxanthin 5 mg 1 cap PO DAILY 04/01/23 03/05/24 capsule (Ocuvite Blue Light) tamsulosin 0.4 mg capsule (Flomax) 0.4 mg PO DAILY 04/01/23 03/05/24 carbidopa 25 mg-levodopa 100 mg 1.5 tab PO QID 06/15/23 03/05/24 tablet ergocalciferol (vitamin D2) 1,250 1,250 mcg PO Q14D 06/15/23 03/05/24 mcg (50,000 unit) capsule latanoprost 0.005 % eye drops 1 drp ophthalmic (eye) .QHS 06/15/23 03/05/24 atorvastatin 80 mg tablet 80 mg PO DAILY 03/05/24 03/05/24 Previous Rx's ?Medication ?Instructions ?Recorded bisacodyl 5 mg tablet,delayed 5 mg PO DAILY #14 tabs 12/07/23 release (Dulcolax (bisacodyl)) cephalexin 500 mg capsule 500 mg PO TID 10 days #30 caps 03/05/24 Allergies Allergy/AdvReac Type Severity Reaction Status Date / Time No Known Drug Allergies Allergy Verified 12/07/23 13:00 Review of Systems ROS Narrative A ten point review of systems is negative except as noted above. [facility] Medical History (Updated 03/05/24 @ 02:31 by Mihir Vargas MD) Epididymitis ?N45.1 - Epididymitis (ICD-10) Sepsis ?A41.9 - Sepsis, unspecified organism (ICD-10) Urinary tract infection ?N39.0 - Urinary tract infection, site not specified (ICD-10) Cataract ?H26.9 - Unspecified cataract (ICD-10) Urgency of urination ?R39.15 - Urgency of urination (ICD-10) Transient ischemic attack ?G45.9 - Transient cerebral ischemic attack, unspecified (ICD-10) Recurrent UTI ?N39.0 - Urinary tract infection, site not specified (ICD-10) Nocturia ?R35.1 - Nocturia (ICD-10) Kidney stones ?N20.0 - Calculus of kidney (ICD-10) Hypertension ?I10 - Essential (primary) hypertension (ICD-10) Hesitancy of micturition ?R39.11 - Hesitancy of micturition (ICD-10) Gross hematuria ?R31.0 - Gross hematuria (ICD-10) 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 - Benign prostatic hyperplasia with lower urinary tract symptoms (ICD-10) ?N13.8 - Other obstructive and reflux uropathy (ICD-10) Back pain ?M54.9 - Dorsalgia, unspecified (ICD-10) Abdominal pain ?R10.9 - Unspecified abdominal pain (ICD-10) Surgical History (Updated 04/01/23 @ 10:23 by Mauricio Llanes) 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 - Presence of unspecified artificial knee joint (ICD-10) H/O hernia repair ?Z98.890 - Other specified postprocedural states (ICD-10) ?Z87.19 - Personal history of other diseases of the digestive system (ICD-10) Hx of appendectomy ?Z90.49 - Acquired absence of other specified parts of digestive tract (ICD-10) H/O cystoscopy ?Z98.890 - Other specified postprocedural states (ICD-10) H/O lithotripsy ?Z98.890 - Other specified postprocedural states (ICD-10) Family History (Updated 04/01/23 @ 10:24 by Mauricio Llanes) Brother Kidney stones Sister Kidney stones Father Family history of cancer Social History Within the past year, how often did you have a drink containing alcohol: never Score interpretation: A score less than 4 is consistent with normal alcohol consumption. Smoking status: Never smoker Non-prescribed substance use: denies use Highest level of school completed/degree received: high school graduate Little interest or pleasure in doing things: not at all Feeling down, depressed, or hopeless: not at all Do you think of yourself as: straight/heterosexual Exam Narrative Exam Narrative: Nurses note and vital signs reviewed and patient is not hypoxic. General: The patient appears well and in no apparent distress. Patient is resting comfortably on cart. Skin: Warm, dry, no pallor noted. There is no rash noted. Head: Normocephalic, atraumatic Eye: Normal conjunctiva, no drainage Ears, Nose, Mouth, and Throat: oral mucosa is moist. Nares patent. Cardiovascular: Regular Rate and Rhythm Respiratory: Patient is in no distress, no accessory muscle use, lungs are clear to auscultation, no wheezing, rales or rhonchi Back: non-tender GI: Soft and nondistended Musculoskeletal: The patient has no evidence of calf tenderness, no pitting edema, symmetrical pulses noted bilaterally Neurological: Awake and alert, hard of hearing Psychiatric: Cooperative Constitutional Vital Signs, click to edit/add: Last Vital Signs Temp 98.0 F 03/05/24 01:39 Pulse 65 03/05/24 01:39 Resp 18 03/05/24 01:39 BP 133/73 03/05/24 01:39 Pulse Ox 95 03/05/24 01:39 O2 Del Method Room Air 03/05/24 01:39 Course Vital Signs Vital signs: Vital Signs Temperature 98.0 F 03/05/24 01:39 Pulse Rate 65 03/05/24 01:39 Respiratory Rate 18 03/05/24 01:39 Blood Pressure 133/73 03/05/24 01:39 Pulse Oximetry 95 03/05/24 01:39 Oxygen Delivery Method Room Air 03/05/24 01:39 Temperature 98.0 F 03/05/24 01:39 Pulse Rate 65 03/05/24 01:39 Respiratory Rate 18 03/05/24 01:39 Blood Pressure 133/73 03/05/24 01:39 Pulse Oximetry 95 12/21/24 01:39 Oxygen Delivery Method Room Air 03/05/24 01:39 MDM - Male Genitourinary MDM Narrative Medical decision making narrative: Dias catheter was inserted and the patient feels improved. He is prescribed prophylactic Keflex and will call his urologist for follow-up appointment. Findings are discussed with the patient and his . Differential Diagnosis Differential diagnosis: Likely urinary tract infection and other (Urinary retention) Lab Data Attestation: I reviewed the patient's lab results. Labs: Lab Results 03/05/24 Range/Units 02:07 Urine Color Yellow (YELLOW) Urine Clarity Slightly cloudy A (CLEAR) Urine pH 6.0 (5.0-9.0) Ur Specific [place] 1.020 (1.005-1.025) Urine Protein Negative (NEG/TRACE) mg/dL Urine Glucose (UA) Negative (NEGATIVE) mg/dL Urine Ketones Trace A (NEGATIVE) mg/dL Urine Occult Blood Negative (NEGATIVE) Urine Nitrite Negative (NEGATIVE) Urine Bilirubin Negative (NEGATIVE) Urine Urobilinogen 1.0 (0.2-1.0) EU/dL Ur Leukocyte Esterase Small A (NEGATIVE) Discharge Plan Discharge Chief Complaint: Urogenital-Male Clinical Impression: Acute retention of urine Patient Disposition: Home, Self-Care Time of Disposition Decision: 02:31 Condition: Good Mode of Transportation: Private Vehicle Prescriptions / Home Meds: New cephalexin 500 mg capsule 500 mg PO TID 10 Days Qty: 30 0RF No Action aspirin [Adult Aspirin Regimen] 81 mg tablet,delayed release (DR/EC) 81 mg PO DAILY tamsulosin [Flomax] 0.4 mg capsule 0.4 mg PO DAILY hydrochlorothiazide 12.5 mg tablet 12.5 mg PO DAILY lutein-zeaxanthin [Ocuvite Blue Light] 25-5 mg capsule 1 cap PO DAILY carbidopa-levodopa 25-100 mg tablet 1.5 tab PO QID ergocalciferol (vitamin D2) 1,250 mcg (50,000 unit) capsule 1,250 mcg PO Q14D latanoprost 0.005 % drops 1 drp OPHTHALMIC (EYE) .QHS Rx Instructions: BOTH EYES bisacodyl [Dulcolax (bisacodyl)] 5 mg tablet,delayed release (DR/EC) 5 mg PO DAILY Qty: 14 0RF atorvastatin 80 mg tablet 80 mg PO DAILY Print Language: Mongolian Instructions: Urinary Retention in Men (ED), Dias Catheter Placement and Care (ED), How to Change a Catheter Drainage Bag (DC) Additional Instructions: Call Dr. Anrdes office on Thursday Referrals: Wilder Kay DO [Primary Care Provider] - 1 week
[2024-03-05] MEDS: LIDOCAINE 2% JELLY 20 ML UR (02:00)
[2024-03-05 02:23] LABS: Bilirubin Urine NEGATIVE (NEGATIVE); Blood Urine NEGATIVE (NEGATIVE); Glucose Urine UA NEGATIVE (NEGATIVE); Ketones Urine TRACE mg/dL (NEGATIVE); Leukocyte Esterase Urine SMALL (NEGATIVE); Nitrite Urine NEGATIVE (NEGATIVE); Protein Urine NEGATIVE (NEG/TRACE)
[2024-03-05 02:26] LABS: Clarity Urine SLIGHTLY CLOUDY (CLEAR); Color Urine YELLOW (YELLOW)
[2024-03-05 02:33] LABS: Bacteria Urine LARGE #/HPF (NONE SEEN); Cast Seen? NONE SEEN #/LPF (NONE SEEN); Crystals Seen? None Seen #/HPF (None Seen); Mucus Urine NONE SEEN (NONE SEEN); RBC Urine 0-2 #/HPF (0-2); Squamous Epithelial Cell Urine RARE #/LPF (NONE/RARE); Urine Culture Indicated YES; WBC Urine 50-75 #/HPF (NONE SEEN)
[2024-03-05] MEDS: CEPHALEXIN 500 MG CAPSULE PO (03:05)
== END 2024-03-05 03:10 | disposition home or self-care (01) ==
PROVIDERS: Emergency Provider Emergency Medicine; PCP Internal Medicine
DX: R33.9 Retention of urine, unspecified (principal); Z90.49 Acquired absence of other specified parts of digestive tract
CPT/HCPCS: 51702; 51798; 81001; 87086; 87150; 87186; 99284

== ENCOUNTER 2024-03-22 09:27 | Outpatient (OUT) | payer MEDICARE, SELFPAY ==
[2024-03-22 10:11] LABS: Hematocrit 39.2 % (42.0-54.0); Hemoglobin 13.1 g/dL (14.0-18.0); Mean Corpuscular HGB Conc 33.4 g/dL (29.9-35.2); Mean Corpuscular Hemoglobin 29.7 pg (25.9-34.0); Mean Corpuscular Volume 88.9 fL (80.0-94.0); Mean Platelet Volume 9.9 fL (9.5-13.5); Platelet Count 133 10^3/uL (150-450); Red Blood Count 4.41 10^6/uL (4.70-6.10); Red Cell Distribution Width 13.5 % (11.0-15.0); White Blood Count 11.6 10^3/uL (4.0-11.0)
[2024-03-22 10:25] LABS: Bilirubin Urine NEGATIVE (NEGATIVE); Blood Urine SMALL (NEGATIVE); Clarity Urine CLEAR (CLEAR); Color Urine YELLOW (YELLOW); Glucose Urine UA NEGATIVE (NEGATIVE); Ketones Urine NEGATIVE (NEGATIVE); Leukocyte Esterase Urine SMALL (NEGATIVE); Nitrite Urine POSITIVE (NEGATIVE); Protein Urine TRACE mg/dL (NEG/TRACE); Specific Gravity Urine 1.025 (1.005-1.025); Urobilinogen Urine 0.2 EU/dL (0.2-1.0)
[2024-03-22 10:34] LABS: Creatinine Urine Random 125.03 mg/dL (20.00-300.00); Protein Creatinine Ratio Urine 0.34; Total Protein Urine Random 42.8 mg/dL (<=11.9)
[2024-03-22 10:52] LABS: Bacteria Urine LARGE #/HPF (NONE SEEN); Cast Seen? NONE SEEN #/LPF (NONE SEEN); Crystals Seen? None Seen #/HPF (None Seen); Mucus Urine NONE SEEN (NONE SEEN); Squamous Epithelial Cell Urine RARE #/LPF (NONE/RARE)
[2024-03-22 10:59] LABS: Albumin Level 3.5 g/dL (3.4-5.0); BUN Creatinine Ratio 14.7; Calcium 8.7 mg/dL (8.5-10.1); Carbon Dioxide 29.9 mmol/L (21.0-32.0); Chloride 102 mmol/L (98-107); Estimated GFR (African America 51 (>=60 mL/min/1.73m^2); Estimated GFR (Non-African Ame 42 (>=60 mL/min/1.73m^2); Glucose 137 mg/dL (74-106); Magnesium 2.2 mg/dL (1.8-2.4); Phosphorus 2.8 mg/dL (2.6-4.7); Potassium 3.9 mmol/L (3.5-5.1); Sodium 140 mmol/L (136-145); Uric Acid 8.2 mg/dL (3.5-7.2)
[2024-03-23 10:08] LABS: PTH, Intact 72 pg/mL (15-65)
== END 2024-03-22 09:28 | disposition home or self-care (01) ==
LOC: LAB 09:30
PROVIDERS: PCP Internal Medicine; Visit Provider Internal Medicine
DX: N25.81 Secondary hyperparathyroidism of renal origin (principal); N18.30 Chronic kidney disease, stage 3 unspecified; I12.9 Hypertensive chronic kidney disease with stage 1 through stage 4 chronic kidney disease, or unspecified chronic kidney disease
CPT/HCPCS: 36415; 80069; 81001; 82306; 82570; 83735; 83970; 84156; 84550; 85027

== ENCOUNTER 2024-11-16 10:44 | Outpatient (OUT) | payer MEDICARE, SELFPAY ==
[2024-11-16 12:41] LABS: Cholesterol 101 mg/dL (<=200); HDL Cholesterol 43 mg/dL (40-60); Triglycerides 107 mg/dL (<=150); VLDL CHOLESTEROL 21.4 mg/dL
--- OUTSIDE RECORDS SUMMARY | 2024-11-16 13:27 | XMS_ITS | CCD ---
Author Organization [facility] Care Team Providers Care Customer Account Administrator Name Role Phone DONOVAN CASTORENA Unavailable Unavailable BEN JIMÉNEZ Unavailable Unavailable Wilder Sam Unavailable Unavailable Unavailable [...] Care Unavailable ENMA, DR HECK Attending Unavailable MCGUINMaura, DR HECK Consulting Unavailable CECY, DR HDZ Admitting Unavailable CECY, DR HDZ Attending Unavailable CECY, DR HDZ Consulting Unavailable CECY, DR HDZ Primary Care Unavailable CECY, DR HDZ Admitting Unavailable CECY, DR HDZ Attending Unavailable CECY, DR HDZ Consulting Unavailable CECY, DR HDZ Primary Care Unavailable COLEHARBOR, DR VANI Gabriel Consulting Unavailable CECY, DR HDZ Primary Care Unavailable KIMBERLI COMBS Admitting Unavailable KIMBERLI COMBS Attending Unavailable KIMBERLI COMBS Consulting Unavailable MISC, DR MORA Attending Unavailable MISC, DR MORA Consulting Unavailable MISC, DR MORA Admitting Unavailable BALL, DR HDZ Primary Care Unavailable ASIA ESPINAL Consulting Unavailable MCGUINN, DR HECK Consulting Unavailable BALL, DR HDZ Primary Care Unavailable MCGUINN, DR HECK Admitting Unavailable MCGUINN, DR HECK Attending Unavailable Wilder Sam DO Primary Care Provider WILEDR SAM Primary Care Physician [phone] BONILLA LOPEZ Attending Unavailable BONILLA LOPEZ Referring Unavailable WILDER SAM Primary Care Unavailable NAIF ESTRADA Attending Unavailable WILDER SAM Referring Unavailable WILDER SAM Primary Care Unavailable Wilder Sam MD Primary Care Provider Jourdan URBINA Attending Unavailable URBINA, Jourdan Anderson Attending Unavailable Orzech, Priti X Attending Unavailable Jourdan URBINA Attending Unavailable URBINA, Jourdan Anderson Referring Unavailable URBINA, Jourdan Anderson Admitting Unavailable Orzech, Priti X Admitting Unavailable Orzech, Priti X Attending Unavailable URBINA, Jourdan Anderson Attending Unavailable Orzech, Priti X Attending Unavailable Cecy MAHAJAN Wilder Cheryl Primary Care Provider NEO MATHEW Attending Unavailable KAISER GÓMEZ Referring Unavailable WILDER SAM Primary Care Unavailable Cecy MAHAJAN Wilder Cheryl Primary Care Provider KIMBERLI COMBS Attending Unavailable Orzech, Priti X Attending Unavailable GARRET, KIMBERLI Luna Attending Unavailable GARRET, KIMBERLI Luna Attending Unavailable GARRET, KIMBERLI Luna Attending Unavailable ASIA SEXTON Attending Unavailable APLOMO, SUSANA Meade Attending Unavailable RUSHER, ASIA Meade Attending Unavailable PALOMO, SUSANA Meade Attending Unavailable PALOMO, SUSANA A Attending Unavailable PETITTKARISSA Esteban Attending Unavailable CARLIE, ASIA Meade Attending Unavailable HARRISREBEKAH VILLATORO Attending Unavailable SHAYLA TSAI Attending Unavailable CARLIE, ASIA Meade Attending Unavailable Medications Current Medications Medication Drug Class(es) Dates Sig (Normalized) Sig (Original) Ocuvite (10 sources) Vitamin C Start: 01-31-2019 take 1 tablet by mouth once daily Ocuvite tab(s), Oral, Daily, Refill(s) 0 Start Date: 01/31/19 Status: Ordered aspirin 81 mg delayed release oral tablet (20 sources) Platelet Aggregation Inhibitor, Nonsteroidal Anti-inflammatory Drug Start: 04-30-2023 take 1 tablet by mouth once daily Aspirin 81 mg tablet,delayed release (DR/EC) Active 81 MG PO Daily April 30, 2023 1:00am Start: 11-17-2019 End: 04-30-2023 take 1 capsule by mouth once daily Aspirin 81 mg Capsule Discontinued 81 MG PO Daily July 15, 2021 12:00am April 30, 2023 4:18pm atorvastatin 80 mg oral tablet (20 sources) HMG-CoA Reductase Inhibitor Start: 04-30-2023 End: 03-31-2024 take 1 tablet by mouth once daily atorvastatin (Lipitor) 80 MG tablet Take 80 mg by mouth Daily 11/24/2023 Active Start: 08-21-2020 End: 06-08-2024 take 1 tablet by mouth once daily atorvastatin (Lipitor) 20 mg tablet Take 1 tablet (20 mg) by mouth once daily. 08/21/2020 06/08/2024 Discontinued (Dose adjustment) Start: 11-18-2019 End: 04-30-2023 take 1 tablet by mouth once daily Atorvastatin (Lipitor) 40 mg tablet Discontinued 40 MG PO Daily November 18, 2019 12:00am April 30, 2023 4:18pm take 2 tablets by [facility] every twenty-four hours Atorvastatin Calcium 40 MG 2 tablets Oral Once a day Active bran/gum/fib/ana/psyl/kelp/p ec (FIBER 6 ORAL) (1 source) bran/gum/fib/ana /psyl/kelp/pec (FIBER 6 ORAL) Take by mouth. Active calcium polycarbophil 625 mg oral tablet (12 sources) Star t: 04-16 take 2 tablets by mouth once daily as needed Calcium Polycarbophil (Fiber (Calcium Polycarbophil)) 625 mg tablet Active 1250 MG PO Daily April 30, 2023 1:00am FreeTextSi tablets as needed Orally ONCE A DAY; Note: Source Status: Taking; Provider: Cecy Hdz ( ) take 2 tablets by [facility] every twenty-four hours Fiber 625 MG 2 tablets as needed Orally ONCE A DAY Active End: 01-26-2023 CALCIUM POLYCARBOPHIL ORAL T zeynep by mouth. 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, unspecified whether dyskinesia present (HCC) TAKE 1 & 1/2 (ONE AND ONE-HALF) TABLETS BY MOUTH FOUR TIMES DAILY 540 tablet 1 02/18/2024 Active Start: 11-17-2019 take 1.5 tablets by mouth four times daily Sinemet 10 mg-100 mg Tab 1.5 tab(s), Oral, QID, Refill(s) 0 Start Date: 11/17/19 Status: Ordered take 1 tablet by jace four times daily Carbidopa-Levodopa 25-100 MG TAKE 1 TABLET BY MOUTH FOUR TIMES DAILY Oral for 90 Days Active cephalexin 500 mg oral capsule (20 sources) Cephalosporin Antibacterial Start: 11-25-2023 take 1 [...] day(s), # 20 cap(s), Refills(s) 0, Pharmacy: [id number], 177, cm, 02/16/23 10:45:00 EST, Height/Length Dosing, 85, kg, 02/16/23 10:45:00 EST, Weight Dosing Start Date: 02/16/23 Stop Date: 02/26/23 Status: Ordered Start: 08-14-2021 take 1 capsule by mo [facility] twice daily Cephalexin 500 MG Oral Capsule TAKE 1 CAPSULE BY MOUTH TWICE DAILY FOR 7 DAYS Quantity: 14 Refills: 0 Ordered: 14-Aug-2021 DO Start : 14-Aug-2021 Complete ciclopirox 7.7 mg/ml topical cream (20 sources) Start: 09-15-2023 ciclopirox (Lo prox) 0.77 % cream Indications: Intertrigo Apply to armpits once a day/30 day supply 30 g 11 09/15/2023 Active docusate sodium 100 mg oral capsule (20 sources) Start: 12-09-2023 take 1 capsule by mouth once daily Docusate Sodium 100 mg capsule Active 100 MG PO Daily December 09, 2023 12:00am Start: 04-30-2023 End: 02-12-2024 take 1 capsule by mouth twice daily as needed Docusate Sodium 100 mg capsule Discontinued 1 CAP PO Twice daily April 30, 2023 1:00am February 12, 2024 10:36am FreeTextSi capsule as needed Orally TWICE A DAY; Note: Source Status: Taking; Provider: Cecy Hdz ( ) docusate sodium (COLACE ORAL) Take by mouth. Active take 1 capsule by mo ut every twelve hours Colace 100 MG 1 capsule as needed Orally TWICE A DAY Active ergocalciferol 1.25 mg oral capsule (20 sources) Provitamin D2 Compound Start: 03-31-2024 take 1 capsule by mouth every other week Ergocalciferol (Vitamin D2) 1,250 mcg (50,000 unit) capsule Active 0 .ROUTE .COMPLEX March 31, 2024 12:33pm TAKE 1 CAPSULE BY MOUTH EVERY 2 weeks Start: 09-25-2023 End: 03-31-2024 take 1 capsule by mouth every other week Ergocalciferol (Vitamin D2) 1,250 mcg (50,000 unit) capsule Discontinued 0 .ROUTE .COMPLEX September 25, 2023 11:34am March 31, 2024 12:33pm TAKE 1 CAPSULE BY MOUTH EVERY 2 weeks Start: 09-25-2023 End: 03-31-2024 take 1 capsule by mouth every other week Ergocalciferol (Vitamin D2) 1,250 mcg (50,000 unit) capsule Discontinued 0 .ROUTE .COMPLEX September 25, 2023 10:34am March 31, 2024 11:33am TAKE 1 CAPSULE BY MOUTH EVERY 2 weeks Start: 09-25-2023 take 1 capsule by mo uth every other week Ergocalciferol (Vitamin D2) Active 0 .ROUTE .COMPLEX September 25, 2023 11:34am TAKE 1 CAPSULE BY MOUTH EVERY 2 weeks Start: 04-30-2023 End: 09-25-2023 Ergocalciferol (Vitamin D2) 1,250 mcg (50,000 unit) capsule Discontinued 93128 UNIT PO .J0dtuil September 23, 2023 10:01am September 25, 2023 11:34am Start: 04-30-2023 End: 09-25-2023 take 02088 [IU] by mouth every other week Ergocalciferol (Vitamin D2) Discontinued 96001 UNIT PO .K0ypcvy September 23, 2023 10:01am September 25, 2023 [...] every week Vitamin D (Ergocalciferol) 1.25 MG (78852 UT) Oral Capsule TAKE 1 CAPSULE BY MOUTH EVERY week Quantity: 12 Refills: 0 Ordered: 30-Apr-2021 DO Start : 14-Feb-2021 Complete take 1 capsule by mo uth every week ergocalciferol (Vitamin D-2) 1.25 MG (02910 UT) capsule Take 1 capsule (1,250 mcg) by mouth 1 (one) time per week. Active take 1 capsule by mo uth every other week Ergocalciferol 1.25 MG (73824 UT) 1 capsule Orally Q2 weeks for 90 days Active eye vitamin supplement (Ocuv ite Eye Health Formula) capsule (2 sources) eye vitamin supp lement (Ocuvite Eye Health Formula) capsule Take by mouth. As directed Active eye vitamin supp lement (Ocuvite Eye Health Formula) capsule Take by mouth. As directed 0 Active Fiber (8 sources) take 2 tablets by mouth once gigi ly as needed take 2 tablets by mo uth once daily as needed Fiber 625 MG 2 tablets as needed Orally ONCE A DAY Active hydroCHLOROthiazide 12.5 mg oral tablet (20 sources) Thiazide Diuretic Start: 03-15-2024 take 1 tablet by mouth in the morning Hydrochlorothiazide 12.5 mg tablet Active 0 .ROUTE .COMPLEX 90 March 15, 2024 3:38pm TAKE 1 TABLET BY MOUTH IN THE MORNING Start: 07-15-2021 End: 04-30-2023 take 1 capsule by mouth once daily Hydrochlorothiazide 12.5 mg Capsule Discontinued 12.5 MG PO Daily July 15, 2021 12:00am April 30, 2023 4:17pm Start: 04-02-2021 End: 03-15-2024 take 1 tablet by mouth once daily in the morning Hydrochlorothiazide 12.5 mg tablet Discontinued 1 TAB PO Daily April 30, 2023 1:00am March 15, 2024 3:38pm FreeTextSi tablet in the morning Orally Once a day; Note: Source Status: Refill; Refills: 3; Qty: 90 Tablet; Provider: Cecy Luna latanoprost 0.05 mg/ml ophthalmic solution (20 sources) Prostaglandin Analog Start: 07-24-2023 take 1 drop(s) into the eye(s) once daily latanoprost (Xalatan) 0.005 % ophthalmic solution instill 1 DROP IN BOTH EYES EVERY NIGHT 07/24/2023 Active lutein 25 mg / zeaxanthin 5 mg oral capsule (1 source) Start: 07-27-2024 Lutein-Zeaxant hin (Ocuvite Lutein 25) 25-5 mg capsule Active CAP PO July 27, 2024 12:00am Multiple Vitamins-Minerals (OCUVITE PO) (7 sources) Multiple Vitamins-Minerals (OCUVITE PO) Take by mouth Active nystatin 100 unt/mg topical powder (20 sources) Polyene Antifungal Start: 09-15-2023 nystatin (Mycostatin) 553795 UNIT/GM powder Indications: Intertrigo Apply to armpits twice a day when needed, 30 day supply 30 g 09/15/2023 Active Ocuvite Eye Health Formula - (10 sources) Ocuvite Eye Health Formula - as directed Orally Active oxybutynin chloride 5 mg oral tablet (5 sources) Cholinergic Muscarinic Antagonist Start: 03-11-2024 take 1 tablet by mouth three times daily as needed oxybutynin 5 mg Tab 5 mg = 1 tab(s), Oral, TID, PRN for urinary discomfort, # 30 tab(s), Refills(s) 0, Pharmacy: [id number], 177, cm, 11/17/23 13:05:00 EDT, Height/Length Dosing, 85, kg, 11/17/23 13:05:00 EDT, Weight Dosing Start Date: 03/11/24 Status: Ordered Start: 04-08-2023 [facility] daily as needed oxybutynin 5 mg Tab 5 mg = 1 tab(s), Oral, TID, PRN for urinary discomfort, # 30 tab(s), Refills(s) 0, Pharmacy: [id number], 177, cm, 02/16/23 10:45:00 EST, Height/Length Dosing, 85, kg, 02/16/23 10:45:00 EST, Weight Dosing Start Date: 04/08/23 Status: Ordered psyllium 3400 mg powder for oral suspension (20 sources) take 3 g by mouth in the morning psyllium (Metamucil) 58.6 % powder Take 3 g of fiber by mouth in the morning and 3 g of fiber before bedtime. Active tamsulosin hydrochloride 0.4 mg oral capsule (20 sources) alpha-Adrenergic Cyrus Start: 0 End: take 1 capsule by mouth once daily Tamsulosin 0.4 mg capsule Active MG PO April 30, 2023 1:00am FreeTextSig: TAKE 1 CAPSULE BY MOUTH DAILY Oral; Note: Source Status: Taking; Refills: 5; Qty: 30 Each; Provider: GARRET NAJERA take 1 capsule by [facility] every twenty-four hours in the morning tamsulosin (Flomax) 0.4 MG 24 hr capsule Take 0.4 mg by mouth in the morning. Active Completed/Discontinued Medications Medication Drug Class(es) Dates Sig (Normalized) Sig (Original) amLODIPine 5 mg oral tablet (20 sources) Dihydropyridine Calcium Channel Cyrus Start: 04-30-2023 End: 07-27-2024 take 1 tablet by mouth once daily Amlodipine 5 mg tablet Discontinued 1 TAB PO Daily April 30, 2023 1:00am July 27, 2024 10:09am FreeTextSi tablet Orally Once a day; Note: Source Status: Continue; Provider: Cecy Luna Start: 08-04-2022 take 1 tablet by jace th every twenty-four hours amLODIPine Besylate 5 MG 1 tablet Orally Once a day July, Active Start: 11-21-2019 End: 07-15-2021 take 1 tablet by mouth once daily Amlodipine 5 mg Tabl et Discontinued 5 MG PO Daily November 21, 2019 12:00am July 15, 2021 2:14pm amoxicillin 500 mg oral capsule (7 sources) Penicillin-class Antibacterial Start: 02-22-2024 End: 03-31-2024 take 4 capsules by mouth once Amoxicillin 500 mg capsule Discontinued 2000 MG PO .COMPLEX February 22, 2024 1:00am March 31, 2024 12:07pm 2,000 mg orally; Take 1 hour prior to dental appointment Start: 10-09-2023 End: 10-14-2023 Amoxicillin 500 mg capsule D iscontinued 2000 MG PO As Directed October 09, 2023 12:00am October 14, 2023 9:55am Start: 10-09-2023 End: 10-14-2023 Amoxicillin Discontinued 200 0 MG PO As Directed October 09, 2023 12:00am October 14, 2023 9:55am ciprofloxacin 250 mg oral tablet (3 sources) Quinolone Antimicrobial Start: 02-16-2023 take 1 tablet by mouth once daily Cipro 250 mg Tab 250 mg = 1 tab(s), Oral, Daily, Take 1 tablet the day before the procedure and 1 tablet after the procedure, # 2 tab(s), Refills(s) 0, Pharmacy: [id number], 177, cm, 02/16/23 10:45:00 EST, Height/Length Dosing, 85, kg, 02/16/23 10:45:00 EST, Weight Dosing Start Date: 02/16/23 Status: Ordered clopidogrel 75 mg oral tablet (11 sources) P2Y12 Platelet Inhibitor Start: 11-18-2019 End: 07-22-2021 take 1 tablet by mouth once daily Clopidogrel (Plavix) 75 mg tablet Discontinued 75 MG PO Daily November 18, 2019 12:00am July 22, 2021 12:22pm Fiber Laxative TABS (2 sources) Fiber Laxative T ABS USE DIRECTED. Quantity: 0 Refills: 0 Ordered: 09-Apr-2021 DO Active levoFLOXacin 250 mg oral tablet (2 sources) Quinolone Antimicrobial Start: 12-09-2023 End: 03-31-2024 Levofloxacin 250 mg tablet Discontinued 250 MG PO .COMPLEX 8 7 December 09, 2023 12:00am March 31, 2024 12:09pm 2 tablets PO today followed by 1 tab daily lisinopril 5 mg oral tablet (9 sources) Angiotensin Converting Enzyme Inhibitor Start: 11-18-2019 End: 07-15-2021 Lisinopril 5 mg tablet Discontinued TABLET November 18, 2019 12:00am July 15, 2021 2:11pm On Hold: till seen by Nephrology Start: 11-18-2019 End: 07-15-2021 Lisinopril Discontinued TABL ET November 18, 2019 12:00am July 15, 2021 2:11pm 24 hr metoprolol succinate 25 mg extended release oral tablet (20 sources) beta-Adrenergic Cyrus Start: 04-30-2023 End: 07-27-2024 take 1 tablet by mouth once daily Metoprolol Succinate 25 mg tablet extended release 24 hr Discontinued 1 TAB PO Daily April 30, 2023 1:00am July 27, 2024 10:09am FreeTextSi tablet Orally Once a day; Note: Source Status: Continue; Provider: Cecy Luna Start: 08-04-2022 take 1 tablet by jace th every twenty-four hours Metoprolol Succinate ER 25 MG 1 tablet Orally Once a day July, Active Start: 11-18-2019 End: 07-15-2021 take 1 tablet by mouth once daily Metoprolol Succinate 25 mg tablet extended release 24 hr Discontinued 25 MG PO Daily November 18, 2019 12:00am July 15, 2021 2:12pm take 1 tablet by jace th every twenty-four hours metoprolol succinate XL (Toprol-XL) 25 MG 24 hr tablet Take by mouth. Do not crush or chew. Active mirtazapine 7.5 mg oral tablet (3 sources) Start: 08-01-2021 take 1 tablet by mouth once daily at bedtime Mirtazapine 7.5 MG Oral Tablet TAKE 1 TABLET BY MOUTH EVERY NIGHT AT BEDTIME Quantity: 30 Refills: 0 Ordered: 01-Aug-2021 DO Start : 01-Aug-2021 Complete Ka-Zv-Gu2-Uir-Nem-Phsr- Lut-Paulo (Ocuvite Adult 50 Plus) 250 mg (90 mg-160 mg) capsule (9 sources) Start: 04-30-2023 End: 03-31-2024 take 1 capsule by mouth twice daily Ec-Wd-Gg6-Ses-Egp-Nuxn- Lut-Paulo (Ocuvite Adult 50 Plus) 250 mg (90 mg-160 mg) capsule Discontinued 1 CAP PO .twice a day April 30, 2023 1:00am March 31, 2024 12:10pm Start: 04-30-2023 End: 03-31-2024 take 1 capsule by mouth twice daily Ff-Nt-Ci6-Mqe-Ztl-Wtge-Lut-Paulo (Ocuvite Adult 50 Plus) 250 mg (90 mg-160 mg) capsule Discontinued 1 CAP PO .twice a day April 30, 2023 12:00am March 31, 2024 11:10am Start: 04-30-2023 take 1 capsule by mouth twice daily Dy-Aa-Fh5-Zfh-Nus-Tuem-Lut-Paulo (Ocuvite Adult 50 Plus) 250 mg (90 mg-160 mg) capsule Active 1 CAP PO .twice a day April 30, 2023 1:00am Start: 04-30-2023 take 1 capsule by mouth twice daily Yi-Rg-Xy4-Pbe-Tmv-Qvjs-Lut-Paulo (Ocuvite Adult 50 Plus) 250 mg (90 mg-160 mg) capsule Active 1 CAP PO .twice a day April 30, 2023 12:00am Ocuvite Adult Formula CAPS (2 sources) Ocuvite Adult Fo rmula CAPS TAKE DIRECTED. Quantity: 0 Refills: 0 Ordered: 09-Apr-2021 DO Active ondansetron 4 mg disintegrating oral tablet (3 sources) Serotonin-3 Receptor Antagonist Start: 12-09-19 End: 03-31-19 take 1 tablet by mouth every eight hours as needed for nausea and vomiting Ondansetron 4 mg tablet,disintegrating Discontinued 4 MG PO Every 8 hours as needed for nausea and vomiting 02 22December 09, 2023 12:00am March 31, 2024 12:10pm polyethylene glycol 3350 332157 mg / potassium chloride 2980 mg / sodium bicarbonate 6720 mg / sodium chloride 5840 mg / sodium sulfate 44655 mg powder for oral solution (2 sources) Osmotic Laxative Start: 12-22-19 GaviLyte-C 240 GM Oral Solution Reconstituted Quantity: 4000 Refills: 0 Ordered: 21-Dec-2021 DO Start : 21-Dec-2021 Complete potassium bicarbonate 25 meq effervescent oral tablet (20 sources) Start: 02-03-20 take 1 tablet by mouth twice daily Klor-Con/EF 25 mEq oral tablet, effervescent 25 mEq = 1 tab(s), Oral, BID, # 60 tab(s), Refills(s) 11, Pharmacy: [id number], 177, cm, 01/15/22 9:44:00 EDT, Height/Length [...] 18, 2019 12:00am April 30, 2023 4:17pm potassium chloride 10 meq extended release oral capsule (20 sources) Start: 03-31-2024 End: 07-27-2024 take 1 capsule by mouth once daily Potassium Chloride 10 mEq capsule, extended release Discontinued 10 MEQ PO Daily March 31, 2024 1:00am July 27, 2024 10:09am potassium citrate 10 meq extended release oral tablet (19 sources) Start: 04-30-2023 End: 03-31-2024 take 1 tablet by mouth twice daily at mealtime Potassium Citrate 10 mEq (1,080 mg) tablet extended release Discontinued 1 TAB PO Twice daily April 30, 2023 1:00am March 31, 2024 12:12pm FreeTextSi tablet with meals Orally Twice a day; Note: Source Status: Taking; Refills: 1; Qty: 180 Tablet; Provider: Sonia Ferrer Start: 04-17-2022 take 1 tablet by jace th every twelve hours Potassium Citrate ER 10 MEQ (1080 MG) 1 tablet with meals Orally Twice a day Apr, Active sulfamethoxazole 800 mg / trimethoprim 160 mg oral tablet (5 sources) Dihydrofolate Reductase Inhibitor Antibacterial, Sulfonamide Antimicrobial Start: 09-11-2023 End: 12-09-2023 take 1 tablet by mouth twice daily Sulfamethoxazole-Trimethoprim 800-160 mg tablet Discontinued 1 TAB PO Twice daily 10 September 11, 2023 12:00am December 09, 2023 2:42pm Problems Active Problems Problem Classification Problem Date Documented Date Episodic/Chronic Abdominal pain (10 sources) Abdominal pain 11-17-2019 Episodic Acute and unspecified renal failure (9 sources) Acute renal failure syndrome; Translations: [Acute kidney failure, unspecified] 02-25-2023 Episodic Comment on above: Problem List clean-u p per request of Phys. EHR Cmte Acute cerebrovascular disease (20 sources) Cerebral infarction, unspecified; Translations: [Subdural hematoma] Onset: 3 Chronic Comment on above: Problem List clean-u p per request of Phys. EHR Cmte Biliary tract disease (4 sources) Cholelithiasis without obstruction; Translations: [Calculus of gallbladder without cholecystitis without obstruction] Episodic Calculus of urinary tract (20 sources) Kidney stone; Translations: [Calculus of kidney] Onset: 2 Resolved: 2 Episodic Cardiac dysrhythmias (9 sources) Paroxysmal ventricular tachycardia; Translations: [Paroxysmal ventricular tachycardia] Onset: 2 01-26-2023 Chronic Comment on above: EPS w/ negative resu lts - 2016 Cardiac dysrhythmias (12 sources) Palpitations; Translations: [Palpitations] Onset: 2 Episodic [...] heart failure] Chronic Deficiency and other anemia (17 sources) Anemia of renal disease; Translations: [Anemia in chronic kidney disease] 03-31-2024 Chronic Deficiency and other anemia (2 sources) Anemia in chronic kidney disease Onset: 2 Resolved: 2 Chronic Deficiency and other anemia (4 sources) Anemia; Translations: [Anemia, unspecified] Episodic Disorders of lipid metabolism (20 sources) Hyperlipidemia; Translations: [Other and unspecified hyperlipidemia] Onset: 2 Resolved: 2 Chronic Essential hypertension (20 sources) Essential hypertension; Translations: [Unspecified essential hypertension] Onset: 2 Chronic Comment on above: Problem List clean-u p per request of Phys. EHR Cmte Fluid and electrolyte disorders (18 sources) Metabolic acidosis; Translations: [Metabolic acidosis] 02-25-2023 Episodic Comment on above: Problem List clean-u p per request of Phys. EHR Cmte Genitourinary symptoms and ill-defined conditions (20 sources) Blood in urine; Translations: [Delay when starting to pass urine] Onset: 4 12-29-2019 Episodic Hyperplasia of prostate (20 sources) Benign prostatic hyperplasia with lower urinary tract symptoms; Translations: [Benign prostatic hyperplasia without lower urinary tract symptoms] Onset: 2 Chronic Comment on above: Problem List clean-u p per request of Phys. 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 Mycoses (4 sources) Onychomycosis due to dermatophyte ; Translations: [Tinea unguium] 02-08-2024 Episodic Nutritional deficiencies (20 sources) Vitamin D deficiency; Translations: [Vitamin D deficiency, unspecified] Onset: 2 Resolved: 2 Chronic Occlusion or stenosis of precerebral arteries (20 sources) Bilateral stenosis of carotid arteries; Translations: [Occlusion and stenosis of bilateral carotid arteries] Onset: 9 01-26-2023 Chronic Comment on above: s/p right CEA Other aftercare (4 sources) Long-term current use of drug therapy; Translations: [Other detention (current) drug therapy] Episodic Other and ill-defined cerebrovascular disease (6 sources) Cerebral atherosclerosis; Translations: [Cerebral atherosclerosis] 09-09-2023 Chronic Other and ill-defined cerebrovascular disease (5 sources) Cerebral atherosclerosis; Translations: [Cerebral atherosclerosis] 10-14-2023 Chronic Other circulatory disease (20 sources) Disorder of carotid artery; Translations: [Disorder [...] residual deficits] Episodic Other connective tissue disease (8 sources) Pain in toe; Translations: [Pain in right toe(s)] 02-08-2024 Episodic Other diseases of kidney and ureters (10 sources) Secondary hyperparathyroidism; Translations: [Secondary hyperparathyroidism of renal origin] Onset: 5 04-30-2023 Chronic Other diseases of kidney and ureters (4 sources) Secondary hyperparathyroidism of renal origin; Translations: [Secondary hyperparathyroidism (of renal origin)] 04-30-2023 Chronic Other diseases of kidney and ureters (9 sources) Hydronephrosis; Translations: [Unspecified hydronephrosis] 02-25-2023 Episodic Comment on above: Problem List clean-u p per request of Phys. EHR Cmte Other diseases of kidney and ureters (2 sources) Urinary tract obstruction; Translations: [Other obstructive and reflux uropathy] Onset: 4 Episodic Other ear and sense organ disorders (9 sources) Sensorineural hearing loss, bilateral; Translations: [Sensorineural hearing loss, bilateral] 08-19-2024 Chronic Other hereditary and degenerative nervous system conditions (4 sources) Mild cognitive disorder ; Translations: [Mild cognitive impairment, so stated] Chronic Other hereditary and degenerative nervous system conditions (2 sources) Impaired cognition; Translations: [Mild cognitive impairment, so stated] 03-14-2024 Chronic Other hereditary and degenerative nervous system conditions (1 source) Mild cognitive impairment, so stated; Translations: [Mild cognitive impairment, so stated] 03-14-2024 Chronic Other nervous system disorders (15 sources) [...] Chronic Other nutritional; endocrine; and metabolic disorders (4 sources) Overweight in adulthood with body mass index of 25 or more but less than 30; Translations: [Overweight] Onset: 06-08-2024 Episodic Other nutritional; endocrine; and metabolic disorders (4 sources) Hyperuricemia without signs of inflammatory arthritis and tophaceous disease; Translations: [Hyperuricemia without signs of inflammatory arthritis and tophaceous disease] Episodic Other nutritional; endocrine; and metabolic disorders (9 sources) Hyperuricemia; Translations: [Hyperuricemia without signs of inflammatory arthritis and tophaceous disease] 04-30-2023 Episodic Other nutritional; endocrine; and metabolic disorders (4 sources) Hyperuricemia without signs of inflammatory arthritis and tophaceous disease; Translations: [Other abnormal blood chemistry] 04-30-2023 Episodic Other nutritional; endocrine; and metabolic disorders (2 sources) Body mass index (BMI) 26.0-26.9, adult; Translations: [Body mass index (BMI) 26.0-26.9, adult] Onset: Episodic Other screening for suspected conditions (not mental disorders or infectious disease) (8 sources) Electrocardiogram abnormal; Translations: [Nonspecific abnormal electrocardiogram [ECG] [EKG]] Onset: 3 01-23-2023 Episodic Other skin disorders (4 sources) Dystrophia unguium; Translations: [Nail dystrophy] 02-08-2024 Episodic Parkinson`s disease (9 sources) Parkinsonism; 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 Peripheral and visceral atherosclerosis (12 sources) Peripheral vascular disease, unspecified; Translations: [Peripheral arterial disease] Onset: 4 09-09-2023 Chronic Comment on above: 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 Residual codes; unclassified (2 sources) Presence of other specified devices; Translations: [Other postprocedural status] 05-08-2023 Episodic Residual codes; unclassified (4 sources) Other specified postprocedural states; Translations: [Other specified postprocedural states] Onset: 0 Episodic Screening and history of mental health and substance abuse codes (2 sources) Ex-smoker; Translations: [Personal history of tobacco use] Episodic Spondylosis; intervertebral disc disorders; other back problems (9 sources) Spondylosis without myelopathy or radiculopathy, lumbar region; Translations: [Cervical spondylosis without myelopathy] Onset: 2 Chronic Spondylosis; intervertebral disc disorders; other back problems (20 sources) Backache; Translations: [Low back pain] 12-01-2019 Episodic Transient cerebral ischemia (20 sources) Transient cerebral ischemia; Translations: [Unspecified transient cerebral ischemia] Onset: 3 01-26-2023 Chronic Unclassified (20 sources) Parkinson's disease; Translations: [Parkinson's disease] Onset: [...] HEMOR LOC UNKN INIT] Onset: 3 Unclassified (5 sources) Other ventricular tachycardia; Translations: [Other ventricular tachycardia] Onset: 3 Unclassified (4 sources) Traumatic subdural hemorrhage with loss of consciousness status unknown, initial encounter; Translations: [Traumatic subdural hemorrhage with loss of consciousness status unknown, initial encounter] Onset: 2 Unclassified (6 sources) Finding of sensation of bladder 11-17-2023 Urinary tract infections (8 sources) Chronic cystitis; Translations: [Other chronic cystitis without hematuria] Onset: 4 Chronic Urinary tract infections (20 sources) Urinary tract infection, site not specified; [...] 07-29-2021 Episodic Other aftercare (1 source) Other terminologist (current) drug therapy; Translations: [OTH SUPERVISOR FUNCTIONAL TESTING CURRENT DRUG THERAPY] Onset: 12-23-2021 Episodic Other aftercare (1 source) USP (current) use of aspirin; Translations: [HALFWAY CURRENT USE OF ASPIRIN] Onset: 12-23-2021 Episodic Other gastrointestinal disorders (4 sources) Constipation, unspecified; Translations: [CONSTIPATION UNSPECIFIED] Onset: 12-21-2021 Episodic Other nervous system disorders (20 sources) Ataxia; Translations: [Ataxia, unspecified] Onset: 09-26-2023 09-26-2023 Episodic Other non-epithelial cancer of skin (2 sources) 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; Translations: [Basal cell carcinoma of skin of nose] 11-25-2023 Episodic Unclassified (2 sources) Onset: 01-26-2023 Resolved: 06-08-2024 01-26-2023 Unclassified (1 source) Other ventricular tachycardia; Translations: [Other ventricular tachycardia] Onset: 06-08-2024 Results Test Name Value Interpretation Reference Range Facility Auditory function testson Bilateral 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 [facility] ECG 12 [place] 06-08-2024 Normal sinus rhythm left axis deviation and nonspecific ST-T changes QTc interval is borderline prolonged 190 ms [facility] Work Phone: Urology Office/Clinic Noteon 05-16-2024 Urology Office/Clinic Note Urology Office/Clinic Note Chief Complaint Follow up with PVR HPI Staff 88yr old male pt here to 6 weeks f/u with PVR Previous Dx: hematuria, BPH with urinary obstruction, feeling of incomplete bladder emptying, kidney stone, other obstructive and reflux uropathy S/p cysto 04/06/23, Urodynamics 04/28/23, UroLift 2016 *tamsulosin 0.4mg qd Pt unable to urinate at this time. Urinated before coming to appt. Denies hematuria, denies dysuria. Denies abdominal pain/flank pain No urological issues he wants to discuss. PVR: 180 ml, pt urinated about 1-2 hours ago. IPSS: 2 Review of Systems PHQ Score Initial Depression Screen Score: 0 SCORE Physical Exam Vitals & Measurements HR: 84(Peripheral) RR: 16 BP: 118/67 HT: 70 in HT: 177 cm WT: 85 kg WT: 187.393 lb BMI: 27.13 Assessment/Plan 1. Feeling of incomplete bladder emptying (R39.14: Feeling of incomplete bladder emptying) 03/28/24: Dias placed after cystoscopy 04/06/2023 due to infected appearance of bladder. Removed after cysto/uros. PVR Nov 2023 - 100 mL, patient feels empty. He is performing timed voids every 1-1/2 to 2 hours at home. [facility] ER on 03/05/24 due to not being able to urinate, PVR was 221cc, dias was placed. states he was having issues w constipation at this time. This has improved. Dias removed IO today. Returned 03/29/24 and PVR 50ml TODAY: Pt voided about 1-2 hrs ago before leaving the house. Unable to void IO. Random scan 180ml (in wheelchair). -Does not need to replace dias/learn CIC. Ordered: Complex E&M Add on E&M of Est. Patient Low 20-29 Min 62164 2. Gross hematuria (R31.0: Gross hematuria) 03/28/24: Called 3 days ago w gross hematuria. Has improved w hold ASA + push fluids. Do not anticipate it will recur if we get the dias out. -Ok to resume ASA. TODAY: No additional hematuria since dias removal. Ordered: Complex E&M Add on E&M of Est. Patient Low 20-29 Min 27393 3. BPH with urinary obstruction (N40.1: Benign prostatic hyperplasia with lower urinary tract symptoms) 03/28/24: Cystoscopy 04/06/2023 -fairly wide open prostatic urethra. Copious amounts of white inflammatory debris throughout the bladder, snow globe effect. High-grade bladder damage. 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 UDS 04/28/2023 emptying fairly well. Average flow rate 3.6 mL/s, maximum flow rate of 6.4 mL/s, maximum detrusor pressure 53.5 cm H2O, PVR 77 mL On tamsulosin 0.4 mg daily. Tolerating well without side effects. TODAY: IPSS 2 QOL 1. -Continue Flomax Ordered: 16512 Measure Post Void residual urine and/or bladder capacity by US- non-imaging Complex E&M Add on E&M of Est. Patient Low 20-29 Min 03922 4. Kidney stone, (N20.0: Calculus of kidney)Kidney stones hx of multiple lithotripsies KUB 01/10/22 [facility] - L renal stones, no measurements. KUB 02/10/23 [facility] - faint punctate renal stones over the L superior aspect. Taking Effer-K 25 mEq twice daily when he remembers. Tolerating well without side effects, but does not like the flavor. TODAY: No flank pain, stone passage. Taking his Effer-K. -F/u 6 mo w KUB prior Ordered: Complex E&M Add on G21 E&M of Est. Patient Low 20-29 Min 82750 XR Abdomen 1 View Follow-up With When Contact Information KIMBERLI COMBS PA-C, URL In 6 months [address] [place] [place] [address] Additional Instructions: Patient Education Kidney Stones, [id number] Problem List/Past Medical History Ongoing Abdominal pain Back pain BPH with urinary obstruction Chronic cystitis Feeling of incomplete bladder emptying Gross hematuria Hematuria Hesitancy of micturition Hypertension Kidney stone Low back pain Nocturia Recurrent UTI Secondary hyperparathyroidism Transient ischemic attack Urgency of urination UTI [...] Daily, 11 refills hydrochlorothiazide 12.5 mg Tab Ocuvite, Oral, Daily Sinemet 10 mg-100 mg Tab, 1.5 tab(s), Oral, QID Allergies No Known Allergies Social History Alcohol - Denies Alcohol Use, 12/29/2019 Never., 03/28/2024 Substance Abuse - Denies Substance Abuse, 12/29/2019 Never., 03/28/2024 Tobacco - Denies Tobacco Use, 12/29/2019 Former smoker, quit more than 30 days ago Tobacco Use:. Never Smokeless Tobacco Use:. Cigarettes, 05/16 (more content not included)... Normal [facility] Comment on above: Result Comment: Elec tronically Signed By: KIMBERLI COMBS PA-C\.br\Date and Time Signed: 05/16/24 12:27 EST Ambulatory Visit Summaryon 0 03-28-2024 Ambulatory Visit Summary Ambulatory Visit Summary YUNI PATELN Erum :1935 Visit Date:03/28/2024 Ambulatory Visit Instructions Your Diagnosis Hematuria Your Care Team Attending Physician - KIMBERLI COMBS PA-C Primary Care Physician - WILDER SAM DO [...] cataract, Hernia Repair, Knee replacement. Discharge Vitals Temperature (Oral) 37 ???C Heart Rate (Peripheral) 78 Respiratory Rate 18 Blood Pressure 98/57 Height 177 cm Height 70 in Weight 85 kg Weight 187.393 lb BMI 27.13 What to do next Scheduled Follow-Up Appointments Thursday 9:30 AM EST With: Where: [facility] [address] [place] [address]- Thursday 11:40 AM EST With: KIMBERLI COMBS PA-C Where: [facility] [address] [place] [address] [place] [address]- Medications What How Much When Instructions Unchanged aspirin (aspirin 81 mg oral tablet) By Mouth Every day Unchanged atorvastatin (atorvastatin 40 mg Tab) Unchanged carbidopa-levodopa (Sinemet 10 mg-100 mg Tab) By Mouth 4 times a day Unchanged ergocalciferol (ergocalciferol 50,000 intl units Cap) [...] for choosing us for your care. Normal [facility] Urology Office/Clinic Noteon 03-28-2024 Urology Office/Clinic Note Urology Office/Clinic Note Chief Complaint hematuria HPI Staff Pt here for blood in his Dias bag. Blood started 03/23/24. Pt started pushing water, and blood cleared up in 2 days. Wondered if he still needed appt today due to not having any issues. He has not had blood in bag since then. Pt has appt next week for Dias removal. Previously had leaking around his catheter but pt started taking oxybutynin and has not had issues since. S/p cysto 04/06/23, Urodynamics 04/28/23, UroLift 2016. Previous Dx: feeling of incomplete bladder emptying, BPH with urinary obstruction, chronic cystitis, hematuria, kidney stone *tamsulosin 0.4mg qd, Effer-K 25mEq bid, oxybutynin 5mg Review of Systems PHQ Score Initial Depression Screen Score: 3 SCORE Detailed Depression Screen Score: 8 Total Depression Screen Score: 11 no fever, chills, malaise, myalgia. no rash/lesions. no chest pain, palpitations, or SOB. no abdominal pain, nausea, vomiting. Physical Exam Vitals & Measurements T: 37 ???C(Oral) HR: 78(Peripheral) RR: 18 BP: 98/57 HT: 70 in HT: 177 cm WT: 85 kg WT: 187.393 lb BMI: 27.13 nontoxic Assessment/Plan 1. Hematuria (R31.9: Hematuria, unspecified) Called 3 days ago w gross hematuria. Has improved w hold ASA + push fluids. Do not anticipate it will recur if we get the dias out. -Ok to resume ASA. Ordered: Body Mass Index (BMI) documented 3008F Current tobacco non-user 1036F Depression Screening Negative 3352F E&M of Est. Patient Moderate 30-39 Min 96790 Influenza immunization status assessed 1030F Medication list documented in medical record 1159F Most recent diastolic blood pressure <80 mm Hg 3078F Patient screen for fall risk: no falls in last year or 1 fall with no injury in last year 1101F Review of all meds by a prescribing practitioner or clinical pharmacist documented in EHR 1160F Systolic BP <130 mm Hg (Most Recent) 3074F 2. BPH with urinary obstruction (N40.1: Benign prostatic hyperplasia with lower urinary tract symptoms) Cystoscopy 04/06/2023 -fairly wide open prostatic urethra. Copious amounts of white inflammatory debris throughout the bladder, snow globe effect. High-grade bladder damage. 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 UDS 04/28/2023 emptying fairly well. Average flow rate 3.6 mL/s, maximum flow rate of 6.4 mL/s, maximum detrusor pressure 53.5 cm H2O, PVR 77 mL On tamsulosin 0.4 mg daily. Tolerating well without side effects. -Continue Flomax 3. Feeling of incomplete bladder emptying (R39.14: Feeling of incomplete bladder emptying) Dias placed after cystoscopy 04/06/2023 due to infected appearance of bladder. Removed after cysto/uros. PVR Nov 2023 - 100 mL, patient feels empty. He is performing timed voids every 1-1/2 to 2 hours at home. [facility] ER on 03/05/24 due to not being able to urinate, PVR was 221cc, dias was placed. states he was having issues w constipation at this time. This has improved. -Dias removed IO today. Pt encouraged to do timed voids. Return to office tomorrow for PVR. If <150ml pt can keep f/u w me in May. If >150ml convert nurse visit to provider visit & let MENDOZA know (consider increasing Flomax to 2 caps daily vs CIC vs dias). Kidney stone (N20.0: Calculus of kidney) Not addressed today. See 11/17/23 for details. Other obstructive and reflux uropathy (N13.8: Other obstructive and reflux uropathy) Follow-up With When Contact Information GARRET LORENZ, KIMBERLI Luna, URL Within 6 weeks [address] [place] [address] [employer] website (1) Additional Instructions: Patient Education Kidney Stones, [id number] Problem List/Past Medical History Ongoing Abdominal pain [...] Oral, BID, 11 refills Ocuvite, Oral, Daily oxybutynin 5 mg Tab, 5 mg= 1 tab(s), Oral, TID, PRN Sinemet 10 mg-100 mg Tab, Oral, QID Allergies No Known Allergies Social History Alcohol - Denies Alcohol U (more content not included)... Normal [facility] Comment on above: Result Comment: Elec tronically Signed By: GARRET LORENZ, KIMBERLI Luna\.br\Date and Time Signed: 03/28/24 16:38 EST Erythrocyte distribution wid th Auto (RBC) [Ratio]on 03-22-2024 Erythrocyte distribution width (RBC) [Ratio] Erythrocyte distribution width [Ratio] by Automated count 11.0-15.0 [facility] Estimated glomerular filtrat ion rate (GFR) non- Americanon 03-22-2024 GFR/1.73 sq M.predicted among non-blacks MDRD (S/P/Bld) [Vol rate/Area] Estimated glomerular filtration rate (GFR) non- Low >=60 mL/min/1.7 3m 2 [facility] Hematocrit Auto (Bld) [Volum e fraction]on 03-22-2024 Hematocrit (Bld) [Volume fraction] Hematocrit [Volume Fraction] of Blood by Automated count Low 42.0-54.0 [facility] Hemoglobin [Mass/volume] in Bloodon 03-22-2024 Hemoglobin (Bld) [Mass/Vol] Hemoglobin [Mass/volume] in Blood Low 14.0-18.0 [facility] - Chemistry and C hemistry - challengeon 03-22-2024 Albumin [Mass/Vol] 3.5 g/dL 3.4-5.0 [facility] Calcium [Mass/Vol] 8.7 mg/dL 8.5-10.1 [facility] Chloride [Moles/Vol] 102 mmol/L 98-107 [facility] CO2 [Moles/Vol] 29.9 mmol/L 21.0-32.0 [facility] Creatinine [Mass/Vol] 1.56 mg/dL High 0.70-1.30 [facility] GFR/1.73 sq M.predicted MDRD (S/P/Bld) [Vol rate/Area] 51 mL/min/{1.73_m2} Low >=60 mL/min/1.7 3m 2 [facility] Glucose [Mass/Vol] 137 mg/dL High 74-106 [facility] Magnesium [Mass/Vol] 2.2 mg/dL 1.8-2.4 [facility] Potassium [Moles/Vol] 3.9 mmol/L 3.5-5.1 [facility] Sodium [Moles/Vol] 140 mmol/L 136-145 [facility] Urate [Mass/Vol] 8.2 mg/dL High 3.5-7.2 [facility] Urea nitrogen [Mass/Vol] 23.0 mg/dL High 7.0-18.0 [facility] Urea nitrogen/Creatinine [Mass ratio] 14.7 mg/mg [facility] Bilirubin Ql (U) Negative NEGATIVE [facility] Glucose (U) [Mass/Vol] Negative NEGATIVE [facility] Ketones Ql (U) Negative NEGATIVE [facility] pH (U) 6.0 [pH] 5.0-9.0 [facility] Specific gravity (U) [Rel density] 1.025 1.005-1.02 5 [facility] Urobilinogen Qn (U) 0.2 {Sofia'U}/dL 0.2-1.0 [facility] - Specimen inform ationon 03-22-2024 Appearance (U) CLEAR CLEAR [facility] Color (U) YELLOW YELLOW [facility] - Urinalysison Leukocyte esterase Test strip Ql (U) SMALL Abnormal NEGATIVE [facility] Mucus Ql (Urine sed) NONE SEEN NONE SEEN [facility] Nitrite Ql (U) Positive Abnormal NEGATIVE [facility] Protein (U) [Mass/Vol] 42.8 mg/dL High <=11.9 [facility] Protein Ql (U) TRACE mg/dL NEG/TRACE [facility] Leukocytes [#/volume] correc krista for nucleated erythrocytes in Blood by Automated counon 03-22-2024 WBC corrected for nucl RBC Auto (Bld) [#/Vol] Leukocytes [#/volume] corrected for nucleated erythrocytes in Blood by Automated coun High 4.0-11.0 [facility] MCH Auto (RBC) [Entitic mass ]on 03-22-2024 MCH (RBC) [Entitic mass] MCH [Entitic mass] by Automated count 25.9-34.0 [facility] MCHC Auto (RBC) [Mass/Vol]on 03-22-2024 MCHC (RBC) [Mass/Vol] MCHC [Mass/volume] by Automated count 29.9-35.2 [facility] MCV Auto (RBC) [Entitic vol] on 03-22-2024 MCV (RBC) [Entitic vol] MCV [Entitic volume] by Automated count 80.0-94.0 [facility] No Panel Informationon 03-22 25-Hydroxy Vitamin D Total 44.7 ng/mL [facility] Comment on above: <20 ng/mL Vit D defi cient20-<30 ng/mL Vit D [id number] ng/mL Vit D sufficient>100 ng/mL Potential Toxicity Parathyroid Hormone (Intact) 72 pg/mL Abnormal 15-65 [facility] Comment on above: Performed at: - [facility] [address] [id number] Director: Dick López PhD, Phone: [phone] Phosphorus Level 2.8 mg/dL 2.6-4.7 [facility] Urine Bacteria LARGE #/HPF Abnormal NONE SEEN [facility] Urine Occult Blood SMALL Abnormal NEGATIVE [facility] Urine Other Casts NONE SEEN #/LPF NONE SEEN [facility] Urine Other Crystals None Seen #/HPF None Seen [facility] Urine Random Creatinine 125.03 mg/dL 20.00-300. 00 [facility] Urine RBC 2-5 #/HPF Abnormal 0-2 [facility] Urine Squamous Epithelial Cells RARE #/LPF NONE/RARE [facility] Urine WBC 5-10 #/HPF Abnormal NONE SEEN [facility] Platelet mean volume Auto (B ld) [Entitic vol]on 03-22-2024 Platelet mean volume (Bld) [Entitic vol] Platelet mean volume [Entitic volume] in Blood by Automated count 9.5-13.5 [facility] Platelets Auto (Bld) [#/Vol] on 03-22-2024 Platelets (Bld) [#/Vol] Platelets [#/volume] in Blood by Automated count Low 150-450 [facility] RBC Auto (Bld) [#/Vol]on RBC (Bld) [#/Vol] Erythrocytes [#/volu me] in Blood by Automated count Low 4.70-6.10 [facility] Serum or plasma anion gap de terminationon 03-22-2024 Anion gap [Moles/Vol] Serum or plasma an ion gap determination [facility] Urine protein/creatinine rat ioon 03-22-2024 Protein/Creatinine (U) [Ratio] Urine protein/creatinine ratio [facility] - Chemistry and C hemistry - challengeon 03-05-2024 Bilirubin Ql (U) Negative NEGATIVE [facility] Glucose (U) [Mass/Vol] Negative NEGATIVE [facility] Ketones Ql (U) TRACE mg/dL Abnormal NEGATIVE [facility] pH (U) 6.0 [pH] 5.0-9.0 [facility] Specific gravity (U) [Rel density] 1.020 1.005-1.02 5 [facility] Urobilinogen Qn (U) 1.0 {Sofia'U}/dL 0.2-1.0 [facility] - Specimen inform ationon 03-05-2024 Appearance (U) SLIGHTLY CLOUDY Abnormal CLEAR [facility] Color (U) YELLOW YELLOW [facility] - Urinalysison Leukocyte esterase Test strip Ql (U) SMALL Abnormal NEGATIVE [facility] Mucus Ql (Urine sed) NONE SEEN NONE SEEN [facility] Nitrite Ql (U) Negative NEGATIVE [facility] Protein Ql (U) Negative NEG/TRACE [facility] No Panel Informationon 03-05 Urine Bacteria LARGE #/HPF Abnormal NONE SEEN [facility] Urine Culture Reflexed YES [facility] Urine Occult Blood Negative NEGATIVE [facility] Urine Other Casts NONE SEEN #/LPF NONE SEEN [facility] Urine Other Crystals None Seen #/HPF None Seen [facility] Urine RBC 0-2 #/HPF 0-2 [facility] Urine Squamous Epithelial Cells RARE #/LPF NONE/RARE [facility] Urine WBC 50-75 #/HPF Abnormal NONE SEEN [facility] Reminderson 03-03-2024 Reminders Reminders From: Josefina Bartlett To: [facility] - Administrative; Sent: 11/17/2023 13:42:40 EDT Show up: 02/14/2024 13:42:00 EST Subject: Ambulatory Reminder Due Date/Time: 05/14/2024 13:42:00 EST Reminder/Recall Please call and schedule patient with AO for a 6m f/u with PVR, due back in early May 2024 called pt to schedule appt. AO doesn't go to [facility] for pt so I put the pt w/ MENDOZA. pt is scheduled for ThuMay 16, 2024 @ 11:40 am in [facility]. Normal [facility] Basophils Auto (Bld) [#/Vol] on 12-07-2023 Basophils (Bld) [#/Vol] 0.0 10 3/uL 0.0-0.1 [facility] Basophils/100 WBC Auto (Bld) on 12-07-2023 Basophils/100 WBC (Bld) 0.3 % 0.2-2.0 [facility] Eosinophils/100 WBC Auto (Bl d)on 12-07-2023 Eosinophils/100 WBC (Bld) 4.3 % 0.9-7.0 [facility] Erythrocyte distribution wid th Auto (RBC) [Ratio]on 12-07-2023 Erythrocyte distribution width (RBC) [Ratio] 13.5 % 11.0-15.0 [facility] Estimated glomerular filtrat ion rate (GFR) non- Americanon 12-07-2023 GFR/1.73 sq M.predicted among non-blacks MDRD (S/P/Bld) [Vol rate/Area] 49 mL/min/{1.73_m2} Low >=60 [facility] Globulin Calc (S) [Mass/Vol] on 12-07-2023 Globulin (S) [Mass/Vol] 3.1 g/dL [facility] Hematocrit Auto (Bld) [Volum e fraction]on 12-07-2023 Hematocrit (Bld) [Volume fraction] 38.5 % Low 42.0-54.0 [facility] Hemoglobin [Mass/volume] in Bloodon 12-07-2023 Hemoglobin (Bld) [Mass/Vol] 13.4 g/dL Low 14.0-18.0 [facility] - Chemistry and C hemistry - challengeon 12-07-2023 Albumin [Mass/Vol] 3.9 g/dL 3.4-5.0 [facility] ALP [Catalytic activity/Vol] 101 U/L 46-116 [facility] ALT [Catalytic activity/Vol] 10 U/L Low 16-63 [facility] AST [Catalytic activity/Vol] 18 U/L 15-37 [facility] Bilirubin [Mass/Vol] 1.6 mg/dL High 0.2-1.0 [facility] Calcium [Mass/Vol] 9.7 mg/dL 8.5-10.1 [facility] Chloride [Moles/Vol] 96 mmol/L Low 98-107 [facility] CO2 [Moles/Vol] 31.1 mmol/L 21.0-32.0 [facility] Creatinine [Mass/Vol] 1.37 mg/dL High 0.70-1.30 [facility] GFR/1.73 sq M.predicted MDRD (S/P/Bld) [Vol rate/Area] 59 mL/min/{1.73_m2} Low >=60 [facility] Glucose [Mass/Vol] 118 mg/dL High 74-106 [facility] Magnesium [Mass/Vol] 2.2 mg/dL 1.8-2.4 [facility] Potassium [Moles/Vol] 3.5 mmol/L 3.5-5.1 [facility] Protein [Mass/Vol] 7.0 g/dL 6.4-8.2 [facility] Sodium [Moles/Vol] 134 mmol/L Low 136-145 [facility] Urea nitrogen [Mass/Vol] 24.0 mg/dL High 7.0-18.0 [facility] Urea nitrogen/Creatinine [Mass ratio] 17.5 mg/mg [facility] - Hematology and Cell countson 12-07-2023 Immature granulocytes/100 WBC (Bld) 1.0 % High 0.0-0.5 [facility] Leukocytes [#/volume] correc krista for nucleated erythrocytes in Blood by Automated counon 12-07-2023 WBC corrected for nucl RBC Auto (Bld) [#/Vol] 6.0 10 3/uL 4.0-11.0 [facility] Lymphocytes Auto (Bld) [#/Vo l]on 12-07-2023 Lymphocytes (Bld) [#/Vol] 0.9 10 3/uL Low 1.2-3.8 [facility] Lymphocytes/100 WBC Auto (Bl d)on 12-07-2023 Lymphocytes/100 WBC (Bld) 14.3 % Low 20.5-60.0 [facility] MCH Auto (RBC) [Entitic mass ]on 12-07-2023 MCH (RBC) [Entitic mass] 29.8 pg 25.9-34.0 [facility] MCHC Auto (RBC) [Mass/Vol]on 12-07-2023 MCHC (RBC) [Mass/Vol] 34.8 g/dL 29.9-35.2 [facility] MCV Auto (RBC) [Entitic vol] on 12-07-2023 MCV (RBC) [Entitic vol] 85.6 fL 80.0-94.0 [facility] Monocytes Auto (Bld) [#/Vol] on 12-07-2023 Monocytes (Bld) [#/Vol] 0.5 10 3/uL 0.3-0.8 [facility] Monocytes/100 WBC Auto (Bld) on 12-07-2023 Monocytes/100 WBC (Bld) 8.0 % 1.7-12.0 [facility] Neutrophils Auto (Bld) [#/Vo l]on 12-07-2023 Neutrophils (Bld) [#/Vol] 4.3 10 3/uL 1.4-6.5 [facility] Neutrophils/100 WBC Auto (Bl d)on 12-07-2023 Neutrophils/100 WBC (Bld) 72.1 % 43.0-75.0 [facility] No Panel Informationon 12-06 Eosinophils # (Auto) 0.3 10 3/uL 0.0-0.7 [facility] Immature Granulocyte # (Auto) 0.06 10 3/uL High 0.00-0.03 [facility] Platelet mean volume Auto (B ld) [Entitic vol]on 12-07-2023 Platelet mean volume (Bld) [Entitic vol] 9.9 fL 9.5-13.5 [facility] Platelets Auto (Bld) [#/Vol] on 12-07-2023 Platelets (Bld) [#/Vol] 144 10 3/uL Low 150-450 [facility] RBC Auto (Bld) [#/Vol]on RBC (Bld) [#/Vol] 4.50 10 6/uL Low 4.70-6.10 [facility] Serum or plasma albumin/glob ulin mass ratioon 12-07-2023 Albumin/Globulin [Mass ratio] 1.3 {ratio} [facility] Serum or plasma anion gap de terminationon 12-07-2023 Anion gap [Moles/Vol] 10.4 mmol/L [facility] C Urineon 11-20-2023 Bacteria identified Cx Nom (U) Microbiology PROCEDURE: Urine Culture [R1] SOURCE: U Random BODY SITE: COLLECTED DATE/TIME: 11/17/2023 13:13 EDT RECEIVED DATE/TIME: 11/17/2023 18:05 EDT START DATE/TIME: 11/17/2023 18:05 EDT FREE TEXT SOURCE: Marycruz BOBO, FUR BLOWING MACHINE OPERATOR-C, Marycruz BOBO, SHAKIR-C, Priti X Priti X FINAL REPORTS Final Report [] [...] Locations R1: This test was performed at: [facility], [address] [place] [address], [id number] , [place], Normal [facility] Comment on above: Performed By: #### [id number] #### [facility] [address] [place] [id number] No Panel Informationon 11-18 Consent obtained: michele baires (The rationale for Mohs as well as the risks, benefits, and alternatives. The risks of infection, scarring, bleeding, prolonged wound healing, incomplete removal, allergy to anesthesia or meds, nerve injury, and recurrence were addressed.) [place] Protocol: Procedure explained and questions answered to [...] sodium bicarbonate Procedure Details: Biopsy accession number: [id number] Biopsy lab: [facility] Date of biopsy: 09/15/2023 Frozen section biopsy [...] surgery? Yes When were antibiotics given? post-operative [facility] No Panel InformationOrdered By: Gaby Villeda on 11-19-2023 [facility] Ambulatory Visit Summaryon 0 11-17-2023 Ambulatory Visit Summary Ambulatory Visit Summary YI TAMMI L :1935 Visit Date:11/17/2023 Ambulatory Visit Instructions Your [...] Schedule the Following Appointments Follow Up with CONNOR Joel APRN, Priti Daniels, FAM, URL When: Comments: 6 months with [...] ? 8 oz (237 mL) of milk, uasecji-nnyfuzxonmxf-xsbuo milk, and calcium-fortifiedfruit juice. Calcium-fortified means that [...] foods con (more content not included)... Normal [facility] Urology Office/Clinic Noteon 11-17-2023 Urology Office/Clinic Note [...] with voice recognition artificial intelligence software, specifically [employer], [employer] and or [employer]. Substitutions may have occurred due to the [...] well without side effects. -Continue tamsulosin Ordered: [id number] Measure Post Void residual urine and/or bladder capacity by US- non-imaging Urnls Dip Stick Auto w/o Microscopy POC 22945 4. Hematuria (R31.9: Hematuria, unspecified) UA today [...] UTI (urinary (more content not included)... Normal [facility] Comment on above: Result Comment: Elec tronically Signed By: CONNOR Joel APRN, Priti Daniels\.br\Date and Time Signed: 11/17/23 13:34 EDT Laboratory - Chemistry and C hemistry - challengeon 09-11-2023 Bilirubin Ql (U) Negative [facility] Glucose (U) [Mass/Vol] [facility] Ketones Ql (U) Negative [facility] pH (U) 5 [pH] [facility] Specific gravity (U) [Rel density] 1.000 [facility] Urobilinogen (U) [Mass/Vol] 0.2 mg/dL [facility] - Specimen inform ationon 09-11-2023 Appearance (U) cloudy [facility] Color (U) clotilde [facility] - Urinalysison Leukocyte esterase Test strip Ql (U) +++ [facility] Nitrite Ql (U) Negative [facility] Protein Ql (U) Negative [facility] No Panel Informationon 09-10 Urine Occult Blood Negative [facility] Basophils Auto (Bld) [#/Vol] on 06-15-2023 Basophils (Bld) [#/Vol] 0.0 10 3/uL 0.0-0.1 [facility] Basophils/100 WBC Auto (Bld) on 06-15-2023 Basophils/100 WBC (Bld) 0.3 % 0.2-2.0 [facility] Eosinophils/100 WBC Auto (Bl d)on 06-15-2023 Eosinophils/100 WBC (Bld) 1.1 % 0.9-7.0 [facility] Erythrocyte distribution wid th Auto (RBC) [Ratio]on 06-15-2023 Erythrocyte distribution width (RBC) [Ratio] 13.6 % 11.0-15.0 [facility] Estimated glomerular filtrat ion rate (GFR) non- Americanon 06-15-2023 GFR/1.73 sq M.predicted among non-blacks MDRD (S/P/Bld) [Vol rate/Area] 49 mL/min/{1.73_m2} Low >=60 [facility] Globulin Calc (S) [Mass/Vol] on 06-15-2023 Globulin (S) [Mass/Vol] 3.2 g/dL [facility] Hematocrit Auto (Bld) [Volum e fraction]on 06-15-2023 Hematocrit (Bld) [Volume fraction] 33.9 % Low 42.0-54.0 [facility] Hemoglobin [Mass/volume] in Bloodon 06-15-2023 Hemoglobin (Bld) [Mass/Vol] 11.1 g/dL Low 14.0-18.0 [facility] - Chemistry and C hemistry - challengeon 06-15-2023 Albumin [Mass/Vol] 2.8 g/dL Low 3.4-5.0 [facility] ALP [Catalytic activity/Vol] 79 U/L 46-116 [facility] ALT [Catalytic activity/Vol] 17 U/L 16-63 [facility] AST [Catalytic activity/Vol] 21 U/L 15-37 [facility] Bilirubin [Mass/Vol] 2.1 mg/dL High 0.2-1.0 [facility] Bilirubin.direct [Mass/Vol] 0.6 mg/dL High 0.0-0.2 [facility] Comment on above: RESULTS CALLED TO [Kenny FULTON/RN]@BY Becca Kenny [id number] Calcium [Mass/Vol] 8.3 mg/dL Low 8.5-10.1 [facility] Chloride [Moles/Vol] 101 mmol/L 98-107 [facility] CO2 [Moles/Vol] 26.8 mmol/L 21.0-32.0 [facility] Creatinine [Mass/Vol] 1.37 mg/dL High 0.70-1.30 [facility] GFR/1.73 sq M.predicted MDRD (S/P/Bld) [Vol rate/Area] 60 mL/min/{1.73_m2} >=60 [facility] Glucose [Mass/Vol] 100 mg/dL 74-106 [facility] Potassium [Moles/Vol] 3.5 mmol/L 3.5-5.1 [facility] Protein [Mass/Vol] 6.0 g/dL Low 6.4-8.2 [facility] Sodium [Moles/Vol] 139 mmol/L 136-145 [facility] Urea nitrogen [Mass/Vol] 25.0 mg/dL High 7.0-18.0 [facility] Urea nitrogen/Creatinine [Mass ratio] 18.2 mg/mg [facility] - Hematology and Cell countson 06-15-2023 Immature granulocytes/100 WBC (Bld) 0.4 % 0.0-0.5 [facility] Leukocytes [#/volume] correc krista for nucleated erythrocytes in Blood by Automated counon 06-15-2023 WBC corrected for nucl RBC Auto (Bld) [#/Vol] 9.8 10 3/uL 4.0-11.0 [facility] Lymphocytes Auto (Bld) [#/Vo l]on 06-15-2023 Lymphocytes (Bld) [#/Vol] 0.8 10 3/uL Low 1.2-3.8 [facility] Lymphocytes/100 WBC Auto (Bl d)on 06-15-2023 Lymphocytes/100 WBC (Bld) 8.1 % Low 20.5-60.0 [facility] MCH Auto (RBC) [Entitic mass ]on 06-15-2023 MCH (RBC) [Entitic mass] 29.1 pg 25.9-34.0 [facility] MCHC Auto (RBC) [Mass/Vol]on 06-15-2023 MCHC (RBC) [Mass/Vol] 32.7 g/dL 29.9-35.2 [facility] MCV Auto (RBC) [Entitic vol] on 06-15-2023 MCV (RBC) [Entitic vol] 89.0 fL 80.0-94.0 [facility] Monocytes Auto (Bld) [#/Vol] on 06-15-2023 Monocytes (Bld) [#/Vol] 0.9 10 3/uL High 0.3-0.8 [facility] Monocytes/100 WBC Auto (Bld) on 06-15-2023 Monocytes/100 WBC (Bld) 9.5 % 1.7-12.0 [facility] Neutrophils Auto (Bld) [#/Vo l]on 06-15-2023 Neutrophils (Bld) [#/Vol] 7.9 10 3/uL High 1.4-6.5 [facility] Neutrophils/100 WBC Auto (Bl d)on 06-15-2023 Neutrophils/100 WBC (Bld) 80.6 % High 43.0-75.0 [facility] No Panel Informationon 06-14 Eosinophils # (Auto) 0.1 10 3/uL 0.0-0.7 [facility] Immature Granulocyte # (Auto) 0.04 10 3/uL High 0.00-0.03 [facility] Platelet mean volume Auto (B ld) [Entitic vol]on 06-15-2023 Platelet mean volume (Bld) [Entitic vol] 10.2 fL 9.5-13.5 [facility] Platelets Auto (Bld) [#/Vol] on 06-15-2023 Platelets (Bld) [#/Vol] 111 10 3/uL Low 150-450 [facility] RBC Auto (Bld) [#/Vol]on RBC (Bld) [#/Vol] 3.81 10 6/uL Low 4.70-6.10 [facility] Serum or plasma albumin/glob ulin mass ratioon 06-15-2023 Albumin/Globulin [Mass ratio] 0.9 {ratio} [facility] Serum or plasma anion gap de terminationon 06-15-2023 Anion gap [Moles/Vol] 14.7 mmol/L [facility] Automated epithelial cells c ount in urine sediment (number/area)on 06-14-2023 Epithelial cells Auto (Urine sed) [#/Area] NONE SEEN #/LPF NONE/RARE [facility] Automated urine specific gra vity by refractometryon 06-14-2023 Specific gravity Refractometry automated (U) [Rel density] 1.015 1.005-1.02 5 [facility] Bacteria [Presence] in Urine by Automatedon 06-14-2023 Bacteria Auto Ql (U) MODERATE #/HPF Abnormal NONE SEEN [facility] Basophils Auto (Bld) [#/Vol] on 06-14-2023 Basophils (Bld) [#/Vol] 0.0 10 3/uL 0.0-0.1 [facility] Basophils/100 WBC Auto (Bld) on 06-14-2023 Basophils/100 WBC (Bld) 0.2 % 0.2-2.0 [facility] Bilirubin Auto test strip (U ) [Mass/Vol]on 06-14-2023 Bilirubin (U) [Mass/Vol] Negative NEGATIVE [facility] Casts typing in urine sedime nt by light microscopyon 06-14-2023 Casts LM Nom (Urine sed) NONE SEEN #/LPF NONE SEEN [facility] Color Auto (U)on 06-14-2023 Color (U) LT. YELLOW YELLOW [facility] Eosinophils/100 WBC Auto (Bl d)on 06-14-2023 Eosinophils/100 WBC (Bld) 0.4 % Low 0.9-7.0 [facility] Erythrocyte distribution wid th Auto (RBC) [Ratio]on 06-14-2023 Erythrocyte distribution width (RBC) [Ratio] 13.9 % 11.0-15.0 [facility] Estimated glomerular filtrat ion rate (GFR) non- Americanon 06-14-2023 GFR/1.73 sq M.predicted among non-blacks MDRD (S/P/Bld) [Vol rate/Area] 41 mL/min/{1.73_m2} Low >=60 [facility] Globulin Calc (S) [Mass/Vol] on 06-14-2023 Globulin (S) [Mass/Vol] 3.4 g/dL [facility] Glucose [Mass/volume] in Uri ne by Test stripon 06-14-2023 Glucose Test strip (U) [Mass/Vol] Negative NEGATIVE [facility] Hematocrit Auto (Bld) [Volum e fraction]on 06-14-2023 Hematocrit (Bld) [Volume fraction] 37.3 % Low 42.0-54.0 [facility] Hemoglobin [Mass/volume] in Bloodon 06-14-2023 Hemoglobin (Bld) [Mass/Vol] 12.5 g/dL Low 14.0-18.0 [facility] Ketones Auto test strip (U) [Mass/Vol]on 06-14-2023 Ketones (U) [Mass/Vol] Negative NEGATIVE [facility] - Chemistry and C hemistry - challengeon 06-14-2023 Lactate [Moles/Vol] 1.7 mmol/L 0.4-2.0 [facility] Albumin [Mass/Vol] 3.4 g/dL 3.4-5.0 [facility] ALP [Catalytic activity/Vol] 88 U/L 46-116 [facility] ALT [Catalytic activity/Vol] U/L Low 16-63 [facility] AST [Catalytic activity/Vol] 19 U/L 15-37 [facility] Bilirubin [Mass/Vol] 2.9 mg/dL High 0.2-1.0 [facility] Calcium [Mass/Vol] 9.0 mg/dL 8.5-10.1 [facility] Chloride [Moles/Vol] 100 mmol/L 98-107 [facility] CO2 [Moles/Vol] 27.5 mmol/L 21.0-32.0 [facility] Creatinine [Mass/Vol] 1.59 mg/dL High 0.70-1.30 [facility] GFR/1.73 sq M.predicted MDRD (S/P/Bld) [Vol rate/Area] 50 mL/min/{1.73_m2} Low >=60 [facility] Glucose [Mass/Vol] 136 mg/dL High 74-106 [facility] Potassium [Moles/Vol] 4.0 mmol/L 3.5-5.1 [facility] Protein [Mass/Vol] 6.8 g/dL 6.4-8.2 [facility] Sodium [Moles/Vol] 137 mmol/L 136-145 [facility] TSH Qn 0.547 m[IU]/L 0.358-3.74 0 [facility] Urea nitrogen [Mass/Vol] 29.0 mg/dL High 7.0-18.0 [facility] Urea nitrogen/Creatinine [Mass ratio] 18.2 mg/mg [facility] - Hematology and Cell countson 06-14-2023 Immature granulocytes/100 WBC (Bld) 0.3 % 0.0-0.5 [facility] - Microbiology an d Antimicrobial susceptibilityOrdered By: Wilder Sam on 06-14-2023 Bacteria identified Cx Nom (U) [facility] Leukocytes [#/area] in Urine sediment by Automated counton 06-14-2023 WBC Auto (Urine sed) [#/Area] 2-5 #/HPF Abnormal 0-2 [facility] Leukocytes [#/area] in Urine sediment by Microscopy high power fieldon 06-14-2023 WBC LM.HPF (Urine sed) [#/Area] 5-10 #/HPF Abnormal NONE SEEN [facility] Leukocytes [#/volume] correc krista for nucleated erythrocytes in Blood by Automated counon 06-14-2023 WBC corrected for nucl RBC Auto (Bld) [#/Vol] 12.2 10 3/uL High 4.0-11.0 [facility] Lymphocytes Auto (Bld) [#/Vo l]on 06-14-2023 Lymphocytes (Bld) [#/Vol] 0.7 10 3/uL Low 1.2-3.8 [facility] Lymphocytes/100 WBC Auto (Bl d)on 06-14-2023 Lymphocytes/100 WBC (Bld) 5.8 % Low 20.5-60.0 [facility] MCH Auto (RBC) [Entitic mass ]on 06-14-2023 MCH (RBC) [Entitic mass] 29.8 pg 25.9-34.0 [facility] MCHC Auto (RBC) [Mass/Vol]on 06-14-2023 MCHC (RBC) [Mass/Vol] 33.5 g/dL 29.9-35.2 [facility] MCV Auto (RBC) [Entitic vol] on 06-14-2023 MCV (RBC) [Entitic vol] 89.0 fL 80.0-94.0 [facility] Monocytes Auto (Bld) [#/Vol] on 06-14-2023 Monocytes (Bld) [#/Vol] 1.3 10 3/uL High 0.3-0.8 [facility] Monocytes/100 WBC Auto (Bld) on 06-14-2023 Monocytes/100 WBC (Bld) 10.6 % 1.7-12.0 [facility] Mucus LM Ql (Urine sed)on Mucus Ql (Urine sed) NONE SEEN NONE SEEN [facility] Neutrophils Auto (Bld) [#/Vo l]on 06-14-2023 Neutrophils (Bld) [#/Vol] 10.1 10 3/uL High 1.4-6.5 [facility] Neutrophils/100 WBC Auto (Bl d)on 06-14-2023 Neutrophils/100 WBC (Bld) 82.7 % High 43.0-75.0 [facility] No Panel Informationon 06-13 Urine Culture Reflexed YES [facility] Urine Microscopic Review YES [facility] Venous Blood Partial Pressure CO2 37.1 mm[Hg] Low 40.0-52.0 [facility] Venous Blood pH 7.473 High 7.330-7.43 0 [facility] Eosinophils # (Auto) 0.1 10 3/uL 0.0-0.7 [facility] Immature Granulocyte # (Auto) 0.04 10 3/uL High 0.00-0.03 [facility] Troponin I High Sensitivity 12.9 pg/mL 4.0-76.1 [facility] Comment on above: CUT-OFF POINTS HAVE BEEN [...] Wilder Sam on 06-14-2023 Blood Culture 2 [facility] Blood Culture 1 [facility] Platelet mean volume Auto (B ld) [Entitic vol]on 06-14-2023 Platelet mean volume (Bld) [Entitic vol] 10.0 fL 9.5-13.5 [facility] Platelets Auto (Bld) [#/Vol] on 06-14-2023 Platelets (Bld) [#/Vol] 136 10 3/uL Low 150-450 [facility] Protein Auto test strip (U) [Mass/Vol]on 06-14-2023 Protein (U) [Mass/Vol] Negative NEG/TRACE [facility] RBC Auto (Bld) [#/Vol]on RBC (Bld) [#/Vol] 4.19 10 6/uL Low 4.70-6.10 [facility] Serum or plasma albumin/glob ulin mass ratioon 06-14-2023 Albumin/Globulin [Mass ratio] 1.0 {ratio} [facility] Serum or plasma anion gap de terminationon 06-14-2023 Anion gap [Moles/Vol] 13.5 mmol/L Fi [facility] Serum procalcitonin measurem enton 06-14-2023 Procalcitonin [Mass/Vol] 0.15 ng/mL 0.00-0.50 [facility] Specific gravity Auto test s trip (U) [Rel density]on 06-14-2023 Specific gravity (U) [Rel density] CLEAR CLEAR [facility] Urine hemoglobin detection b y automated test stripon 06-14-2023 Hemoglobin Auto test strip Ql (U) Negative NEGATIVE [facility] Urine nitrite detection by a utomated test stripon 06-14-2023 Nitrite Auto test strip Ql (U) SMALL Abnormal NEGATIVE [facility] Nitrite Auto test strip Ql (U) Positive Abnormal NEGATIVE [facility] Urine sediment crystal ident ification by light microscopyon 06-14-2023 Crystals LM Nom (Urine sed) None Seen #/HPF None Seen [facility] Urobilinogen Auto test strip (U) [Mass/Vol]on 06-14-2023 Urobilinogen Qn (U) 4.0 {Sofia'U}/dL Abnormal 0.2-1.0 [facility] pH Auto test strip (U)on pH (U) 6.5 [pH] 5.0-9.0 [facility] Consent for Procedure/Surger yon 06-02-2023 Consent for Procedure/Surgery [id number]#1.00TIFF Normal [facility] IntraOperative Documentson 0 06-02-2023 IntraOperative Documents [id number]#1.00TIFF Normal [facility] Lab Reportson 05-18-2023 Lab Reports [id number]#1.00TIFF Normal [facility] Patient Educationon 05-18-19 24 Patient Education Urology Benign Prostatic Hyperplasia Benign [...] Follow these instructions at home: ? Take akzh-uzl-wdgsfab and prescription medicines only as told by [...] the medicine (more content not included)... Normal [facility] Urology Office/Clinic Noteon 05-18-2023 Urology Office/Clinic Note Chief Complaint Discuss Uro's HPI Staff Pt last seen in our office 02/16/23 due to Recurrent UTI, BPH & Kidny Stone. *Effer K 25meq BID. Also started on Keflex 250mg BID u49gdmz that day. S/P Cysto 04/06/23 *Catheter placed, dc'd home with 1wk Doxy therapy (per EMR messages- bladder looked like snow globe) Urodynamics completed 04/28/23 Catheter removed in our office today. Pt's is concerned as to why pt had catheter. Is it needed detention? Pt did have a couple hematuria/dark urine [...] 6 months [facility] [address], [place] [address]- [phone] Additional Instructions: 6 mo fu with PVR [...] Cap, 0.4 mg= (more content not included)... [facility] Comment on above: Result Comment: Elec tronically Signed By: Jourdan URBINA MD\.br\Date and Time Signed: 05/18/23 11:06 EST\.br\Electronically Co-Signed By: [place]\.br\Date and Time Co-Signed: 05/18/23 11:05 EST IntraOperative Documentson 0 04-29-2023 IntraOperative Documents [id number]#1.00TIFF [facility] Consent for Procedure/Surger yon 04-28-2023 Consent for Procedure/Surgery [id number]#1.00TIFF [facility] Consent for Treatmenton 04-16 Consent for Treatment [id number]#1.00TIFF [facility] ED Note-Physicianon 04-28-19 ED Note-Physician [id number]#1.00TIFF [facility] IntraOperative Documentson 0 04-28-2023 IntraOperative Documents [id number]#1.00TIFF [facility] Ambulatory Visit Summaryon 0 04-09-2023 Ambulatory Visit Summary TAMMI PATEL :1935 Visit Date:04/09/2023 Ambulatory Visit Instructions Your Care Team Attending Physician - Marycruz BOBO, CONNOR, Priti Daniels Primary Care Physician - WILDER [...] for choosing us for your care. Normal [facility] Operative Reporton Operative Report [id number]#1.00TIFF Normal [facility] LIPID PROFILEon 07-16-2022 CHOL-HDL RATIO NORM SEE BELOW Normal [facility] Comment on above: Result Comment: 3.3 - 4.4 LOW RISK 4.4 - 7.1 AVERAGE RISK 7.1 - 11.0 MODERATE RISK >11.0 HIGH RISK Performed By: #### L IPID, AST, BMP #### [facility] [address] [address] [address] Anu Magdaleno Cholesterol [Mass/Vol] 105 mg/dL Normal <=200 [facility] Comment on above: Performed By: #### L IPID, AST, BMP #### [facility] [address] [address] [address] Anu Magdaleno Cholesterol in HDL [Mass/Vol] 47 mg/dL Normal 40-60 [facility] Comment on above: Performed By: #### L IPID, AST, BMP #### [facility] [address] [address] [address] Anu Magdaleno Cholesterol in LDL [Mass/Vol] 46.2 mg/dL Normal [facility] Comment on above: Performed By: #### L IPID, AST, BMP #### [facility] [address] [address] [address] Anu Magdaleno Cholesterol.total/Chol esterol in HDL [Mass ratio] 2.2 {ratio} Normal [facility] Comment on above: Performed By: #### L IPID, AST, BMP #### [facility] [address] [place] [address] Dr. Anu Magdaleno HDL NORMAL > or = 60 mg/dl - LO W CARDIOVASCULAR RISK <40 mg/dl - HIGH CARDIOVASCULAR RISK Normal [facility] Comment on above: Performed By: #### L IPID, AST, BMP #### [facility] [address] [place] [address] Dr. Anu Magdaleno LDL CALC NORMAL SEE BELOW Normal [facility] Comment on above: Result Comment: <100 mg/dl OPTIMAL 100 - 129 mg/dl NEAR OR ABOVE OPTIMAL 130 - 159 mg/dl BORDERLINE HIGH 160 - 189 mg/dl HIGH >190 mg/dl VERY HIGH Performed By: #### L IPID, AST, BMP #### [facility] [address] [place] [address] Dr. Anu Magdaleno Triglyceride [Mass/Vol] 59 mg/dL Normal <=150 [facility] Comment on above: Performed By: #### L IPID, AST, BMP #### [facility] [address] [place] [address] Dr. Anu Magdaleno VLDL CALC 11.8 mg/dL Normal [facility] Comment on above: Performed By: #### L IPID, AST, BMP #### [facility] [address] [place] [address] Dr. Anu Magdaleno PROF CHEM 8 (BAS METB)on Anion gap [Moles/Vol] 13.1 mmol/L Normal [facility] Comment on above: Performed By: #### F ERR, FETIBC, VITB12 #### [facility] [address] [place] [address] Dr. Anu Magdaleno Calcium [Mass/Vol] 9.2 mg/dL Normal 8.5-10.1 [facility] Comment on above: Performed By: #### F ERR, FETIBC, VITB12 #### [facility] [address] [place] [address] Dr. Anu Magdaleno Chloride [Moles/Vol] 102 mmol/L Normal 98-107 [facility] Comment on above: Performed By: #### F ERR, FETIBC, VITB12 #### [facility] [address] [address] [address] Anu Magdaleno CO2 [Moles/Vol] 28.3 mmol/L Normal 21.0-32.0 [facility] Comment on above: Performed By: #### F ERR, FETIBC, VITB12 #### [facility] [address] [place] [address] Dr. Anu Magdaleno Creatinine [Mass/Vol] 1.40 mg/dL Critically high 0.70-1.30 [facility] Comment on above: Performed By: #### F ERR, FETIBC, VITB12 #### [facility] [address] [place] [address] Dr. Anu Magdalneo EGFR-AF TRINIDADIAN 58 mL/min/1.73m2 Critically low >=60 [facility] Comment on above: Performed By: #### F ERR, FETIBC, VITB12 #### [facility] [address] [place] [address] Dr. Anu Magdaleno EGFR-NON AF TRINIDADIAN 48 mL/min/1.73m2 Critically low >=60 [facility] Comment on above: Performed By: #### F ERR, FETIBC, VITB12 #### [facility] [address] [place] [address] Dr. Anu Magdaleno Glucose [Mass/Vol] 124 mg/dL Critically high 74-106 [facility] [place] Comment on above: Performed By: #### F ERR, FETIBC, VITB12 #### [facility] [address] [address] [address] Anu Magdaleno Potassium [Moles/Vol] 4.4 mmol/L Normal 3.5-5.1 [facility] Comment on above: Performed By: #### F ERR, FETIBC, VITB12 #### [facility] [address] [address] [address] Anu Magdaleno Sodium [Moles/Vol] 139 mmol/L Normal 136-145 [facility] Comment on above: Performed By: #### F ERR, FETIBC, VITB12 #### [facility] [address] [place] [address] Dr. Anu Magdaleno Urea nitrogen [Mass/Vol] 20.0 mg/dL Critically high 7.0-18.0 [facility] Comment on above: Performed By: #### F ERR, FETIBC, VITB12 #### [facility] [address] [place] [address] Dr. Anu Magdaleno Urea nitrogen/Creatinine [Mass ratio] 14.3 mg/mg Normal [facility] Comment on above: Performed By: #### F ERR, FETIBC, VITB12 #### [facility] [address] [place] [address] Dr. Anu Magdaleno SGOTon 07-16-2022 AST [Catalytic activity/Vol] 16 U/L Normal 15-37 [facility] Comment on above: Performed By: #### L IPID, AST, BMP #### [facility] [address] [place] [address] HEAD WO CONon [...] Recorded: 15Jan2022 03:30PM Heart Rate68, L Radial Vmkrdtps528, RUE, Sitting Nyrxyfzuq54, RUE, Sitting Height5 ft 10 in Kshcom374 lb BMI Rgbwirzvso59.26 kg/m2 BSA Calculated2.04 Tobacco Useb) No PHQ-2 [...] EST ( (more content not included)... Normal [employer] Tobacco Screening.on 022 Adult depression screening assessment No [facility] [employer] DO Work Phone: Fall risk assessment b) One or more fall s in the last year [facility] [employer] 250 DO Work Phone: Tobacco use status CP b) No [facility] [employer] DO Work Phone: XR KUB 1 [...] VANI RIDLEY Date: 2022-01-10 17:59 Normal [facility] XR KUB_DECUB or ERECTon 10-0 XR KUB_DECUB or ERECT EXAMINATION: XR KU [...] ASIA ESPINAL Date: 2021-12-21 11:40 Normal [facility] CBC AUTO DIFFon 10-30-2021 BASO # 0.0 103/ul Normal 0.0-0.1 [facility] Comment on above: Performed By: #### C BC #### [facility] [address] [address] [address] Anu Magdaleno Basophils/100 WBC (Bld) 0.7 % Normal 0.2-2.0 [facility] Comment on above: Performed By: #### C BC #### [facility] [address] [address] [address] Anu Magdaleno EO # 0.5 103/ul Normal 0.0-0.7 [facility] Comment on above: Performed By: #### C BC #### [facility] [address] [address] [address] Anu Magdaleno Eosinophils/100 WBC (Bld) 7.7 % Critically high 0.9-7.0 [facility] Comment on above: Performed By: #### C BC #### [facility] [address] [address] [address] Anu Magdaleno Erythrocyte distribution width (RBC) [Ratio] 13.7 % Normal 11.0-15.0 [facility] Comment on above: Performed By: #### C BC #### [facility] [address] [address] [address] Anu Magdaleno Hematocrit (Bld) [Volume fraction] 39.5 % Critically low 42.0-54.0 [facility] Comment on above: Performed By: #### C BC #### [facility] [address] [place] [address] Dr. Anu Magdaleno Hemoglobin (Bld) [Mass/Vol] 13.3 g/dL Critically low 14.0-18.0 [facility] Comment on above: Performed By: #### C BC #### [facility] [address] [place] [address] Dr. Anu Magdaleno IG # 0.02 10e3/ul Normal 0.00-0.03 [facility] Comment on above: Performed By: #### C BC #### [facility] [address] [place] [address] Dr. Anu Magdaleno IG % 0.3 % Normal 0.0-0.5 [facility] Comment on above: Performed By: #### C BC #### [facility] [address] [place] [address] Dr. Anu Magdaleno LYMPH # 1.1 103/ul Critically low 1.2-3.8 [facility] Comment on above: Performed By: #### C BC #### [facility] [address] [place] [address] Dr. Anu Magdaleno Lymphocytes/100 WBC (Bld) 18.4 % Critically low 20.5-60.0 [facility] Comment on above: Performed By: #### C BC #### [facility] [address] [place] [address] Dr. Anu Magdaleno MANUAL DIFF REQ NO Normal [facility] Comment on above: Performed By: #### C BC #### [facility] [address] [place] [address] Dr. Anu Magdaleno MCH (RBC) [Entitic mass] 30.0 pg Normal 25.9-34.0 [facility] Comment on above: Performed By: #### C BC #### [facility] [address] [place] [address] Dr. Anu Magdalneo MCHC (RBC) [Mass/Vol] 33.7 g/dL Normal 29.9-35.2 [facility] Comment on above: Performed By: #### C BC #### [facility] [address] [place] [address] Dr. Anu Magdaleno MCV (RBC) [Entitic vol] 89.2 fL Normal 80.0-94.0 [facility] Comment on above: Performed By: #### C BC #### [facility] [address] [place] [address] Dr. Anu Magdaleno MONO # 0.4 103/ul Normal 0.3-0.8 [facility] Comment on above: Performed By: #### C BC #### [facility] [address] [place] [address] Dr. Anu Magdaleno Monocytes/100 WBC (Bld) 7.4 % Normal 1.7-12.0 [facility] Comment on above: Performed By: #### C BC #### [facility] [address] [place] [address] Dr. Anu Magdaleno NEUT # 3.9 103/ul Normal 1.4-6.5 [facility] Comment on above: Performed By: #### C BC #### [facility] [address] [place] [address] Dr. Anu Magdaleno Neutrophils/100 WBC (Bld) 65.5 % Normal 43.0-75.0 [facility] Comment on above: Performed By: #### C BC #### [facility] [address] [place] [address] Dr. Anu Magdaleno Platelet mean volume (Bld) [Entitic vol] 9.5 fL Normal 9.5-13.5 [facility] Comment on above: Performed By: #### C BC #### [facility] [address] [place] [address] Dr. Anu Magdaleno PLT 121 103/ul Critically low 150-450 [facility] Comment on above: Performed By: #### C BC #### [facility] [address] [place] [address] Dr. Anu Magdaleno RBC 4.43 106/ul Critically low 4.70-6.10 [facility] Comment on above: Performed By: #### C BC #### [facility] [address] [place] [address] Dr. Anu Magdaleno WBC 6.0 103/ul Normal 4.0-11.0 [facility] Comment on above: Performed By: #### C BC #### [facility] [address] [place] [address] Dr. Anu Magdaleno FERRITINon 10-30-2021 Ferritin [Mass/Vol] 137.0 ng/mL Normal 26.0-388.0 [facility] Comment on above: Performed By: #### F ERR, FETIBC, VITB12 #### [facility] [address] [place] [address] Dr. Anu Magdaleno IRON AND TIBCon 10-30-2021 % SATURATION 21.8 % Normal [facility] Comment on above: Performed By: #### F ERR, FETIBC, VITB12 #### [facility] [address] [place] [address] Dr. Anu Magdaleno Iron [Mass/Vol] 67.0 ug/dL Normal 65.0-175.0 [facility] Comment on above: Performed By: #### F ERR, FETIBC, VITB12 #### [facility] [address] [place] [address] Dr. Anu Magdaleno TIBC DIRECT 307.0 ug/dL Normal 250.0-450. 0 [facility] Comment on above: Performed By: #### F ERR, FETIBC, VITB12 #### [facility] [address] [place] [address] Dr. Anu Magdaleno VITAMIN B12on 10-30-2021 Cobalamin (Vitamin B12) [Mass/Vol] 385.0 pg/mL Normal 193.0-986. 0 [facility] Comment on above: Performed By: #### F ERR, FETIBC, VITB12 #### [facility] [address] [place] [address] head/brain wo [facility] 08-26 CT head/brain wo [facility] [place] [address] CT Scan Report Signed Patient: Tammi Patel MR#: [id number] : 1935 Acct:[id number] Age/Sex: 85 / M ADM Date: 08/26/21 Loc: CT Room: Type: [facility] Attending Dr: Angel Cotton MD Ordering [...] Jericho Esparza M.D.08/26/2021 10:23 AM Dictation Location: [place] [address] Transcribed By: [facility] 08/26/21 1023 Dictated By: Jericho Esparza II, MD 08/26/21 1019 Signed By: 08/26/21 1023 [facility] CBC AUTO DIFFon 08-01-2021 BASO # 0.1 103/ul Normal 0.0-0.1 [facility] Comment on above: Performed By: #### C BC #### [facility] [address] [place] [address] Dr. Anu Magdaleno Basophils/100 WBC (Bld) 0.7 % Normal 0.2-2.0 [facility] Comment on above: Performed By: #### C BC #### [facility] [address] [place] [address] Dr. Anu Magdaleno EO # 0.3 103/ul Normal 0.0-0.7 [facility] Comment on above: Performed By: #### C BC #### [facility] [address] [place] [address] Dr. Anu Magdaleno Eosinophils/100 WBC (Bld) 3.4 % Normal 0.9-7.0 [facility] Comment on above: Performed By: #### C BC #### [facility] [address] [place] [address] Dr. Anu Magdaleno Erythrocyte distribution width (RBC) [Ratio] 13.5 % Normal 11.0-15.0 [facility] Comment on above: Performed By: #### C BC #### [facility] [address] [place] [address] Dr. Anu Magdaleno Hematocrit (Bld) [Volume fraction] 40.7 % Critically low 42.0-54.0 [facility] Comment on above: Performed By: #### C BC #### [facility] [address] [place] [address] Dr. Anu Magdaleno Hemoglobin (Bld) [Mass/Vol] 13.1 g/dL Critically low 14.0-18.0 [facility] Comment on above: Performed By: #### C BC #### [facility] [address] [place] [address] Dr. Anu Magdaleno IG # 0.05 10e3/ul Critically high 0.00-0.03 [facility] Comment on above: Performed By: #### C BC #### [facility] [address] [place] [address] Dr. Anu Magdaleno IG % 0.6 % Critically high 0.0-0.5 [facility] Comment on above: Performed By: #### C BC #### [facility] [address] [place] [address] Dr. Anu Magdaleno LYMPH # 0.8 103/ul Critically low 1.2-3.8 [facility] Comment on above: Performed By: #### C BC #### [facility] [address] [place] [address] Dr. Anu Magdaleno Lymphocytes/100 WBC (Bld) 9.6 % Critically low 20.5-60.0 [facility] Comment on above: Performed By: #### C BC #### [facility] [address] [place] [address] Dr. Anu Magdaleno MANUAL DIFF REQ NO Normal [facility] Comment on above: Performed By: #### C BC #### [facility] [address] [place] [address] Dr. Anu Magdaleno MCH (RBC) [Entitic mass] 29.0 pg Normal 25.9-34.0 [facility] Comment on above: Performed By: #### C BC #### [facility] [address] [place] [address] Dr. Anu Magdaleno MCHC (RBC) [Mass/Vol] 32.2 g/dL Normal 29.9-35.2 [facility] Comment on above: Performed By: #### C BC #### [facility] [address] [place] [address] Dr. Anu Magdaleno MCV (RBC) [Entitic vol] 90.0 fL Normal 80.0-94.0 [facility] Comment on above: Performed By: #### C BC #### [facility] [address] [place] [address] Dr. Anu Magdaleno MONO # 0.5 103/ul Normal 0.3-0.8 [facility] Comment on above: Performed By: #### C BC #### [facility] [address] [place] [address] Dr. Anu Magdaleno Monocytes/100 WBC (Bld) 6.4 % Normal 1.7-12.0 [facility] Comment on above: Performed By: #### C BC #### [facility] [address] [place] [address] Dr. Anu Magdaleno NEUT # 6.4 103/ul Normal 1.4-6.5 [facility] Comment on above: Performed By: #### C BC #### [facility] [address] [place] [address] Dr. Anu Magdaleno Neutrophils/100 WBC (Bld) 79.3 % Critically high 43.0-75.0 [facility] Comment on above: Performed By: #### C BC #### [facility] [address] [place] [address] Dr. Anu Magdaleno Platelet mean volume (Bld) [Entitic vol] 10.0 fL Normal 9.5-13.5 [facility] Comment on above: Performed By: #### C BC #### [facility] [address] [place] [address] Dr. Anu Magdaleno PLT 154 103/ul Normal 150-450 [facility] Comment on above: Performed By: #### C BC #### [facility] [address] [place] [address] Dr. Anu Magdaleno RBC 4.52 106/ul Critically low 4.70-6.10 [facility] Comment on above: Performed By: #### C BC #### [facility] [address] [place] [address] Dr. Anu Magdaleno WBC 8.0 103/ul Normal 4.0-11.0 [facility] Comment on above: Performed By: #### C BC #### [facility] [address] [place] [address] Dr. Anu Magdaleno LIPID PROFILEon 08-01-2021 CHOL-HDL RATIO NORM SEE BELOW Normal [facility] Comment on above: Result Comment: 3.3 - 4.4 LOW RISK 4.4 - 7.1 AVERAGE RISK 7.1 - 11.0 MODERATE RISK >11.0 HIGH RISK Performed By: #### F ERR, FETIBC, VITB12 #### [facility] [address] [address] [address] Anu Magdaleno Cholesterol [Mass/Vol] 102 mg/dL Normal <=200 [facility] Comment on above: Performed By: #### F ERR, FETIBC, VITB12 #### [facility] [address] [address] [address] Anu Magdaleno Cholesterol in HDL [Mass/Vol] 50 mg/dL Normal 40-60 [facility] Comment on above: Performed By: #### F ERR, FETIBC, VITB12 #### [facility] [address] [address] [address] Anu Magdaleno Cholesterol in LDL [Mass/Vol] 34.6 mg/dL Normal [facility] Comment on above: Performed By: #### F ERR, FETIBC, VITB12 #### [facility] [address] [place] [address] Dr. Anu Magdaleno Cholesterol.total/Chol esterol in HDL [Mass ratio] 2.0 {ratio} Normal [facility] Comment on above: Performed By: #### F ERR, FETIBC, VITB12 #### [facility] [address] [address] [address] Anu Magdaleno HDL NORMAL > or = 60 mg/dl - LO W CARDIOVASCULAR RISK <40 mg/dl - HIGH CARDIOVASCULAR RISK Normal [facility] Comment on above: Performed By: #### F ERR, FETIBC, VITB12 #### [facility] [address] [place] [address] Dr. Anu Magdaleno LDL CALC NORMAL SEE BELOW Normal [facility] Comment on above: Result Comment: <100 mg/dl OPTIMAL 100 - 129 mg/dl NEAR OR ABOVE OPTIMAL 130 - 159 mg/dl BORDERLINE HIGH 160 - 189 mg/dl HIGH >190 mg/dl VERY HIGH Performed By: #### F ERR, FETIBC, VITB12 #### [facility] [address] [place] [address] Dr. Anu Magdaleno Triglyceride [Mass/Vol] 87 mg/dL Normal <=150 [facility] Comment on above: Performed By: #### F ERR, FETIBC, VITB12 #### [facility] [address] [place] [address] Dr. Anu Magdaleno VLDL CALC 17.4 mg/dL Normal [facility] Comment on above: Performed By: #### F ERR, FETIBC, VITB12 #### [facility] [address] [place] [address] Dr. Anu Magdaleno PROF CHEM 8 (BAS METB)on Anion gap [Moles/Vol] 13.8 mmol/L Normal [facility] Comment on above: Performed By: #### F ERR, FETIBC, VITB12 #### [facility] [address] [place] [address] Dr. Anu Magdaleno Calcium [Mass/Vol] 9.0 mg/dL Normal 8.5-10.1 [facility] Comment on above: Performed By: #### F ERR, FETIBC, VITB12 #### [facility] [address] [place] [address] Dr. Anu Magdaleno Chloride [Moles/Vol] 100 mmol/L Normal 98-107 [facility] Comment on above: Performed By: #### F ERR, FETIBC, VITB12 #### [facility] [address] [place] [address] Dr. Anu Magdaleno CO2 [Moles/Vol] 28.4 mmol/L Normal 21.0-32.0 [facility] Comment on above: Performed By: #### F ERR, FETIBC, VITB12 #### [facility] [address] [place] [address] Dr. Anu Magdaleno Creatinine [Mass/Vol] 1.31 mg/dL Critically high 0.70-1.30 [facility] Comment on above: Performed By: #### F ERR, FETIBC, VITB12 #### [facility] [address] [place] [address] Dr. Anu Magdaleno EGFR-AF TRINIDADIAN >60 Normal >=60 [facility] Comment on above: Performed By: #### F ERR, FETIBC, VITB12 #### [facility] [address] [place] [address] Dr. Anu Magdaleno EGFR-NON AF TRINIDADIAN 52 mL/min/1.73m2 Critically low >=60 [facility] Comment on above: Performed By: #### F ERR, FETIBC, VITB12 #### [facility] [address] [address] [address] Anu Magdaleno Glucose [Mass/Vol] 118 mg/dL Critically high 74-106 [facility] Comment on above: Performed By: #### F ERR, FETIBC, VITB12 #### [facility] [address] [address] [address] Anu Magdaleno Potassium [Moles/Vol] 4.2 mmol/L Normal 3.5-5.1 [facility] Comment on above: Performed By: #### F ERR, FETIBC, VITB12 #### [facility] [address] [address] [address] Anu Magdaleno Sodium [Moles/Vol] 138 mmol/L Normal 136-145 [facility] Comment on above: Performed By: #### F ERR, FETIBC, VITB12 #### [facility] [address] [address] [address] Anu Magdaleno Urea nitrogen [Mass/Vol] 21.0 mg/dL Critically high 7.0-18.0 [facility] Comment on above: Performed By: #### F ERR, FETIBC, VITB12 #### [facility] [address] [address] [address] Anu Magdaleno Urea nitrogen/Creatinine [Mass ratio] 16.0 mg/mg Normal [facility] Comment on above: Performed By: #### F ERR, FETIBC, VITB12 #### [facility] [address] [address] [address] Anu Magdaleno SGOTon 08-01-2021 AST [Catalytic activity/Vol] 13 U/L Critically low 15-37 [facility] Comment on above: Performed By: #### F ERR, FETIBC, VITB12 #### [facility] [address] [address] [address] Anu Magdaleno Basic Metabolic Panelon 05-0 Calcium [Mass/Vol] 9.0 mg/dL Normal 8.2-10.2 [facility] Comment on above: Performed By: #### C BC, PT, PTT, BMP #### [facility] [address] Chloride [Moles/Vol] 104 mmol/L Normal 95-114 [facility] Comment on above: Performed By: #### C BC, PT, PTT, BMP #### [facility] [address] CO2 [Moles/Vol] 23.8 mmol/L Normal 22.0-30.0 [facility] Comment on above: Performed By: #### C BC, PT, PTT, BMP #### [facility] [address] Creatinine [Mass/Vol] 1.26 mg/dL Normal 0.64-1.27 [facility] Comment on above: Performed By: #### C BC, PT, PTT, BMP #### [address] Creatinine Clr Calc Pharmacy 44.26 [facility] Comment on above: Result Comment: PERF ORMED BY: [place] [address] PATHOLOGIST [employer]PER[employer]AVIO CANAS M.D. Performed By: #### C BC, PT, PTT, BMP #### [address] Estimated GFR ( Marzena > 60 [facility] Comment on above: Result Comment: GFR estimated reference range: According to KDOQI guidelines, <60 ml/min/1.73m2 is sufficient to diagnose a patient with chronic kidney disease. Performed By: #### C BC, PT, PTT, BMP #### [facility] [address] Estimated GFR (Non- Am 54 [facility] Comment on above: Performed By: #### C BC, PT, PTT, BMP #### [address] Glucose [Mass/Vol] 105 mg/dL High 70-100 [facility] Comment on above: Result Comment: [place] Glucose Reference Range is dependent on time and content of last meal. Glucose of more than 200 mg/dL in a nonstressed, ambulatory subject supports the diagnosis of Diabetes Mellitus. ADA recommended reference range Performed By: #### C BC, PT, PTT, BMP #### [address] Potassium [Moles/Vol] 4.2 mmol/L Normal 3.5-5.1 [facility] Comment on above: Performed By: #### C BC, PT, PTT, BMP #### [address] Sodium [Moles/Vol] 137 mmol/L Normal 136-146 [facility] Comment on above: Performed By: #### C BC, PT, PTT, BMP #### [address] Urea nitrogen [Mass/Vol] 22 mg/dL Normal 9-23 [facility] Comment on above: Performed By: #### C BC, PT, PTT, BMP #### [address] Coagulation Profileon 2021 aPTT Coag (Bld) [Time] 29.6 s Normal 25.1-36.5 [facility] Comment on above: Result Comment: PERF ORMED BY: [place] [address] PATHOLOGIST [employer] CANAS M.D. Performed By: #### C BC, PT, PTT, BMP #### [address] INR Coag (PPP) [Relative time] 1.1 {INR} Normal [facility] Comment on above: Result Comment: INR Therapeutic [...] #### C BC, PT, PTT, BMP #### [address] PT Coag (PPP) [Time] 12.2 s Normal 9.0-12.9 [facility] Comment on above: Performed By: #### C BC, PT, PTT, BMP #### [address] Complete Blood Count Auto Di ffon 07-19-2021 Basophils (Bld) [#/Vol] 0.1 10*3/uL Normal 0.0-0.2 [facility] Comment on above: Result Comment: PERF ORMED BY: [place] [address] PATHOLOGIST SU[employer]NAS M.D. Performed By: #### C BC, PT, PTT, BMP #### [address] Basophils/100 WBC (Bld) 0.9 % Normal . [facility] Comment on above: Performed By: #### C BC, PT, PTT, BMP #### [address] Eosinophils (Bld) [#/Vol] 0.4 10*3/uL Normal 0.0-0.45 [facility] Comment on above: Performed By: #### C BC, PT, PTT, BMP #### [address] Eosinophils/100 WBC (Bld) 7.6 % Normal . [facility] Comment on above: Performed By: #### C BC, PT, PTT, BMP #### [address] Erythrocyte distribution width (RBC) [Ratio] 14.5 % Normal 12.0-14.8 [facility] Comment on above: Performed By: #### C BC, PT, PTT, BMP #### [address] Hematocrit (Bld) [Volume fraction] 37.6 % Low 38.8-50.0 [facility] Comment on above: Performed By: #### C BC, PT, PTT, BMP #### [address] Hemoglobin (Bld) [Mass/Vol] 13.3 g/dL Normal 13.0-17.0 [facility] Comment on above: Performed By: #### C BC, PT, PTT, BMP #### [address] Lymphocytes (Bld) [#/Vol] 1.0 10*3/uL Normal 1.00-4.8 [facility] Comment on above: Performed By: #### C BC, PT, PTT, BMP #### [address] Lymphocytes/100 WBC (Bld) 17.4 % Normal . [facility] Comment on above: Performed By: #### C BC, PT, PTT, BMP #### [address] MCH (RBC) [Entitic mass] 30.1 pg Normal 27.5-35.2 [facility] Comment on above: Performed By: #### C BC, PT, PTT, BMP #### [address] MCV (RBC) [Entitic vol] 84.9 fL Normal 83.5-101 [facility] Comment on above: Performed By: #### C BC, PT, PTT, BMP #### [address] Mean Corpuscular HGB Conc 35.4 g/dL Normal 32.5-35.6 [facility] Comment on above: Performed By: #### C BC, PT, PTT, BMP #### [address] Monocytes (Bld) [#/Vol] 0.5 10*3/uL Normal 0.0-0.8 [facility] Comment on above: Performed By: #### C BC, PT, PTT, BMP #### [address] Monocytes/100 WBC (Bld) 9.6 % Normal . [facility] Comment on above: Performed By: #### C BC, PT, PTT, BMP #### [address] Neutrophils (Bld) [#/Vol] 3.5 10*3/uL Normal 1.8-7.7 [facility] Comment on above: Performed By: #### C BC, PT, PTT, BMP #### [address] Neutrophils/100 WBC (Bld) 64.5 % Normal . [facility] Comment on above: Performed By: #### C BC, PT, PTT, BMP #### [address] Nucleated RBC/100 WBC (Bld) [Ratio] 0.0 % Normal 0-0.5 [facility] Comment on above: Performed By: #### C BC, PT, PTT, BMP #### [address] Platelet mean volume (Bld) [Entitic vol] 8.2 fL Normal 6.6-10.1 [facility] Comment on above: Performed By: #### C BC, PT, PTT, BMP #### [place] [address] [place] Platelets (Bld) [#/Vol] 119 10*3/uL Low 150-450 [facility] Comment on above: Performed By: #### C BC, PT, PTT, BMP #### [address] RBC (Bld) [#/Vol] 4.43 10*6/uL Normal 3.90-5.60 [facility] Comment on above: Performed By: #### C BC, PT, PTT, BMP #### [facility] [address] [place] [address] [place] WBC (Bld) [#/Vol] 5.5 10*3/uL Normal 4.5-11.0 [facility] Comment on above: Performed By: #### C BC, PT, PTT, BMP #### [facility] [address] [place] [address] [place] ABO/Rh Retypeon 07-18-2021 ABO/RH Recheck Result Positive Normal [facility] Comment on above: Result Comment: PERF ORMED BY: [place] [address] PATHOLOGIST SUPERVISOR CAR AND YARD FAVIO CANAS M.D. Type and Screenon 07-18-2021 ABO and Rh group Nom (Bld) Blood group O Rh(D) positive Normal [facility] Comment on above: Order Comment: Comme nt FOR SURGERY 07/19 Basic Metabolic Panelon Calcium [Mass/Vol] 8.8 mg/dL Normal 8.2-10.2 [facility] Comment on above: Performed By: #### C BC, PT, PTT, BMP #### [facility] [address] [place] [address] Chloride [Moles/Vol] 102 mmol/L Normal 95-114 [facility] Comment on above: Performed By: #### C BC, PT, PTT, BMP #### [facility] [address] [place] [address] CO2 [Moles/Vol] 23.7 mmol/L Normal 22.0-30.0 [facility] Comment on above: Performed By: #### C BC, PT, PTT, BMP #### [facility] [address] [place] [address] [place] Creatinine [Mass/Vol] 1.33 mg/dL High 0.64-1.27 [facility] Comment on above: Performed By: #### C BC, PT, PTT, BMP #### [facility] [address] [place] [address] [place] Creatinine Clr Calc Pharmacy 45.37 Normal [facility] Comment on above: Result Comment: PERF ORMED BY: [place] [address] PATHOLOGIST SUPERVISOR [employer] YARD FAVIO CANAS M.D. Performed By: #### C BC, PT, PTT, BMP #### [address] Estimated GFR ( Marzena > 60 [facility] Comment on above: Result Comment: GFR estimated reference range: According to KDOQI guidelines, <60 ml/min/1.73m2 is sufficient to diagnose a patient with chronic kidney disease. Performed By: #### C BC, PT, PTT, BMP #### [address] Estimated GFR (Non- Am 51 [facility] Comment on above: Performed By: #### C BC, PT, PTT, BMP #### [address] Glucose [Mass/Vol] 98 mg/dL Normal 70-100 [facility] Comment on above: Result Comment: [place] Glucose Reference Range is dependent on time and content of last meal. Glucose of more than 200 mg/dL in a nonstressed, ambulatory subject supports the diagnosis of Diabetes Mellitus. ADA recommended reference range Performed By: #### C BC, PT, PTT, BMP #### [address] Potassium [Moles/Vol] 4.2 mmol/L Normal 3.5-5.1 [facility] Comment on above: Performed By: #### C BC, PT, PTT, BMP #### [place] [address] [place] Sodium [Moles/Vol] 136 mmol/L Normal 136-146 [facility] Comment on above: Performed By: #### C BC, PT, PTT, BMP #### [place] [address] [place] Urea nitrogen [Mass/Vol] 25 mg/dL High 9-23 [facility] Comment on above: Performed By: #### C BC, PT, PTT, BMP #### [facility] [address] [place] [id number] [facility] CT head/brain wo conon 07-16 CT head/brain wo con [facility] [place] [address] [place] [address] CT Scan Report Signed Patient: Tammi Patel MR#: [id number] : 1935 Acct:[id number] Age/Sex: 85 / M ADM Date: 07/15/21 Loc: 3T Room: [address] [place] [address] Type: ADM INOo Attending Dr: Jose Barber [...] Aleks Paredes M.D.07/16/2021 9:22 AM Dictation Location: [place] [address] Transcribed By: [facility] 07/16/21921 Dictated By: Aleks Paredes DO 07/16/21916 Signed By: 07/16/21921 [facility] Basic Metabolic Panelon 05-0 Calcium [Mass/Vol] 9.1 mg/dL Normal 8.2-10.2 [facility] Comment on above: Performed By: #### C BC, PT, PTT, BMP #### [facility] [address] [place] [address] Chloride [Moles/Vol] 103 mmol/L Normal 95-114 [facility] Comment on above: Performed By: #### C BC, PT, PTT, BMP #### [facility] [address] CO2 [Moles/Vol] 25.7 mmol/L Normal 22.0-30.0 [facility] Comment on above: Performed By: #### C BC, PT, PTT, BMP #### [address] Creatinine [Mass/Vol] 1.40 mg/dL High 0.64-1.27 [facility] Comment on above: Performed By: #### C BC, PT, PTT, BMP #### [address] Creatinine Clr Calc Pharmacy 43.04 [facility] Comment on above: Result Comment: PERF ORMED BY: [place] [address] PATHOLOGIST SUPERVISOR [employer] FAVIO CANAS M.D. Performed By: #### C BC, PT, PTT, BMP #### [facility] [address] [place] [address] Estimated GFR ( Marzena 58 [facility] Comment on above: Result Comment: GFR estimated reference range: According to KDOQI guidelines, <60 ml/min/1.73m2 is sufficient to diagnose a patient with chronic kidney disease. Performed By: #### C BC, PT, PTT, BMP #### [facility] [address] [place] [address] Estimated GFR (Non- Am 48 [facility] Comment on above: Performed By: #### C BC, PT, PTT, BMP #### [facility] [address] Glucose [Mass/Vol] 119 mg/dL High 70-100 [facility] Comment on above: Result Comment: [facility] Glucose Reference Range is dependent on time and content of last meal. Glucose of more than 200 mg/dL in a nonstressed, ambulatory subject supports the diagnosis of Diabetes Mellitus. ADA recommended reference range Performed By: #### C BC, PT, PTT, BMP #### [facility] [address] Potassium [Moles/Vol] 4.1 mmol/L Normal 3.5-5.1 [facility] Comment on above: Performed By: #### C BC, PT, PTT, BMP #### [facility] [address] Sodium [Moles/Vol] 139 mmol/L Normal 136-146 [facility] Comment on above: Performed By: #### C BC, PT, PTT, BMP #### [facility] [address] Urea nitrogen [Mass/Vol] 24 mg/dL High 9-23 [facility] Comment on above: Performed By: #### C BC, PT, PTT, BMP #### [facility] [address] COVID-19 Antigenon 2 COVID-19 Antigen Healthcare [...] developed and its performance characteristic determined by [employer] and validated at [facility]. This test has not been FDA cleared [...] for SARS Antigen by TREY PERFORMED BY: [place] [address] PATHOLOGIST SUPERVISOR [employer] Y[employer] FAVIO CANAS M.D. Normal [facility] Comment on above: Performed By: #### C BC, PT, PTT, BMP #### [facility] [address] [place] [address] COVID-19 [facility] 07-15-2021 SARS-CoV-2 (COVID-19) RNA RUIZ+probe Ql (Unsp spec) Negative Normal Negative [facility] Comment on above: Order Comment: Healt hcare Worker?: N Result Comment: Testing for SARS-CoV-2 by RT-PCR This test was developed and its performance characteristics determined by Deborah, [employer] and validated at the [facility]. This test has not been FDA cleared [...] is terminated or revoked sooner. PERFORMED BY: [place] [address] PATHOLOGIST SUPERVISOR [employer] FAVIO CANAS M.D. Performed By: #### C BC, PT, PTT, BMP #### [address] head/brain wo conon 07-15 CT head/brain wo con [facility] [place] [address] [place] [address] CT Scan Report Signed Patient: Tammi Patel MR#: [id number] : 1935 Acct:[id number] Age/Sex: 85 / M ADM Date: 07/15/21 Loc: CT Room: Type: [facility] Attending Dr: Dixie Carroll PA-C Ordering [...] Jericho Esparza M.D.07/15/2021 1:43 PM Dictation Location: [place] [address] Transcribed By: RUBEN 07/15/21 1343 Dictated By: Jericho Esparza II, MD 07/15/21 1339 Signed By: 07/15/21 1343 Normal [facility] Complete Blood Count Auto Di ffon 07-15-2021 Basophils (Bld) [#/Vol] 0.1 10*3/uL Normal 0.0-0.2 [facility] Comment on above: Result Comment: PERF ORMED BY: [place] [address] PATHOLOGIST SUPERVISOR [employer] FAVIO CANAS M.D. Performed By: #### C BC, PT, PTT, BMP #### [place] [address] [place] Basophils/100 WBC (Bld) 1.9 % Normal . [facility] Comment on above: Performed By: #### C BC, PT, PTT, BMP #### [facility] [address] [place] [address] [place] Eosinophils (Bld) [#/Vol] 0.3 10*3/uL Normal 0.0-0.45 [facility] Comment on above: Performed By: #### C BC, PT, PTT, BMP #### [place] [address] [place] Eosinophils/100 WBC (Bld) 5.4 % Normal . [facility] Comment on above: Performed By: #### C BC, PT, PTT, BMP #### [address] Erythrocyte distribution width (RBC) [Ratio] 14.3 % Normal 12.0-14.8 [facility] Comment on above: Performed By: #### C BC, PT, PTT, BMP #### [address] Hematocrit (Bld) [Volume fraction] 37.0 % Low 38.8-50.0 [facility] Comment on above: Performed By: #### C BC, PT, PTT, BMP #### [address] Hemoglobin (Bld) [Mass/Vol] 12.9 g/dL Low 13.0-17.0 [facility] Comment on above: Performed By: #### C BC, PT, PTT, BMP #### [address] Lymphocytes (Bld) [#/Vol] 0.8 10*3/uL Low 1.00-4.8 [facility] Comment on above: Performed By: #### C BC, PT, PTT, BMP #### [address] Lymphocytes/100 WBC (Bld) 15.0 % Normal . [facility] Comment on above: Performed By: #### C BC, PT, PTT, BMP #### [address] MCH (RBC) [Entitic mass] 30.0 pg Normal 27.5-35.2 [facility] Comment on above: Performed By: #### C BC, PT, PTT, BMP #### [address] MCV (RBC) [Entitic vol] 85.7 fL Normal 83.5-101 [facility] Comment on above: Performed By: #### C BC, PT, PTT, BMP #### [address] [place] [address] [place] Mean Corpuscular HGB Conc 34.9 g/dL Normal 32.5-35.6 [facility] Comment on above: Performed By: #### C BC, PT, PTT, BMP #### [place] [address] [place] Monocytes (Bld) [#/Vol] 0.4 10*3/uL Normal 0.0-0.8 [facility] Comment on above: Performed By: #### C BC, PT, PTT, BMP #### [place] [address] [place] Monocytes/100 WBC (Bld) 7.3 % Normal . [facility] Comment on above: Performed By: #### C BC, PT, PTT, BMP #### [address] Neutrophils (Bld) [#/Vol] 3.9 10*3/uL Normal 1.8-7.7 [facility] Comment on above: Performed By: #### C BC, PT, PTT, BMP #### [place] [address] [place] Neutrophils/100 WBC (Bld) 70.4 % Normal . [facility] Comment on above: Performed By: #### C BC, PT, PTT, BMP #### [place] [address] [place] Nucleated RBC/100 WBC (Bld) [Ratio] 0.0 % Normal 0-0.5 [facility] Comment on above: Performed By: #### C BC, PT, PTT, BMP #### [facility] [address] [place] [address] [place] Platelet mean volume (Bld) [Entitic vol] 8.1 fL Normal 6.6-10.1 [facility] Comment on above: Performed By: #### C BC, PT, PTT, BMP #### [facility] [address] [place] [address] [place] Platelets (Bld) [#/Vol] 135 10*3/uL Low 150-450 [facility] Comment on above: Performed By: #### C BC, PT, PTT, BMP #### [facility] [address] RBC (Bld) [#/Vol] 4.32 10*6/uL Normal 3.90-5.60 [facility] Comment on above: Performed By: #### C BC, PT, PTT, BMP #### [facility] [address] WBC (Bld) [#/Vol] 5.6 10*3/uL Normal 4.5-11.0 [facility] Comment on above: Performed By: #### C BC, PT, PTT, BMP #### [facility] [address] ECG 12 lead ECGon 07-15-2021 ECG 12 lead ECG [facility] [place] [address] [place] [address] Electrocardiograph Report Signed Patient: Tammi Patel MR#: [id number] : 1935 Acct:[id number] Age/Sex: 85 / M ADM Date: 07/15/21 Loc: Room: [address] [place] [address] Type: DIS IN Attending Dr: Jose Barber [...] Signed By Omayra Horowitz MD 07/15/211909 Normal [facility] Partial Thromboplastin Timeo n 07-15-2021 aPTT Coag (Bld) [Time] 31.7 s Normal 25.1-36.5 [facility] Comment on above: Result Comment: PERF ORMED BY: [place] [address] PATHOLOGIST SUPERVISOR [employer] FAVIO CANAS M.D. Performed By: #### C BC, PT, PTT, BMP #### [facility] [address] [place] [address] Prothrombin Time INRon 07-15 INR Coag (PPP) [Relative time] 1.0 {INR} Normal [facility] Comment on above: Result Comment: INR Therapeutic [...] BC, PT, PTT, BMP #### [facility] [address] [place] [address] PT Coag (PPP) [Time] 11.4 s Normal 9.0-12.9 [facility] Comment on above: Performed By: #### C BC, PT, PTT, BMP #### [facility] [address] [place] [address] Leigh Ag Negativeon 07-16-19 22 Leigh Ag Negative Negative Normal Negative [facility] Comment on above: Result Comment: This is a duplicate Leigh SARS Antigen (TREY) result to be used for statistical tracking purpose only. PERFORMED BY: [place] [address] PATHOLOGIST SUPERVISOR [employer] FAVIO CANAS M.D. Performed By: #### C BC, PT, PTT, BMP #### [facility] [address] [place], [place] [id number] [facility] XR chest 1V portableon 07-15 XR chest 1V portable [facility] [place] [address] XRay Report Signed Patient: Tammi Patel MR#: [id number] : 1935 Acct:[id number] Age/Sex: 85 / M ADM Date: 07/15/21 Loc: ER Room: Type: [facility] ER Attending Dr: Ordering Provider: Omayra [...] Jericho Esparza M.D.07/15/2021 2:43 PM Dictation Location: [place] [address] Transcribed By: [facility] 07/15/21 1443 Dictated By: Jericho Esparza II, MD 07/15/211441 Signed By: 07/15/21 1443 [facility] Office Visit (Cardiology)on 04-09-2021 Follow-up visit [...] Patient Instructions By signing my name below, IJenny LPN, Scribe, attest that this documentation has [...] 09Apr2021 11:40AM Heart Rate72, L Brachial Artery Evahfqxp141, LUE, Sitting Zyelerkyc62, LUE, Sitting Height5 ft 10 in Ldtyaz419 lb BMI Pgavlqauea86.12 kg/m2 BSA Calculated2.04 Tobacco Useb) No Fall Screeninga) No falls within the last year Physical Exam Constitutional: alert and in no acute distress. Eyes: no erythema, swelling or discharge from the eye . Neck: neck is supple, symme (more content not included)... Normal [employer] Tobacco Screening.on 022 Fall risk assessment a) No falls within the last year [facility] Heart-Sandu jones 250 DO Work Phone: Tobacco use status [facility] b) No -[facility] Heart-Sandu jones 250 DO Work Phone: [facility] CARDIAC STRESS/REST FRANCISCA Moore 08-31-2018 [facility] CARDIAC STRESS/REST INJECTION Patient Name: TAMMI PATEL STUDY: Performing facility: [facility], [address], [address], [place] [address] Document Control Clerk: Pete DELA CRUZ NP PCP: Dr. Anthony MARTINEZ INDICATION: Abnormal EKG; HISTORY: Gender: M; Age: 82 y/o ; Height: 180.34 cm; Weight: 89.5443543 kg. Abnormal EKG; Palpitations; SOB; Fatigue; Family HX CAD; Quit smoking years ago. COMPARISON: Previous nuclear testing completed at [facility]. ACCESSION NUMBER(S): [id number]; [id number]; [id number] ORDERING CLINICIAN: LINDA HOROWITZ NP TECHNIQUE: ONE [...] Study compared to previous study back in 2015,they appear to be very similar except previous study reported left ventricular ejection fraction of 43%. Electronically signed by: NEO MATHEW MD [facility] CNOVSPon 09-02-2017 CNOVSP Visit (SP) Office (HEMACL) -------TAMMI PATEL ([id number]) 1935 MDate Time Provider Department09/02/17 1:00 PM DONOVAN CASTORENA HEMACL During your visit today, we recorded the following information about you: Temperature Pulse Respiration Blood pressure 97.6 degrees 70/minute 18/minute 121/60 Weight Height 86.7 kg 1.753 Corky Castorena DO 09/17/2017 9:27 AM SignedPATIENT NAME: Tammi Bustamante: [id number] PHYSICIAN: Ben Jiménez MD417 [facility] [address]UAEJZYD CARE PHYSICIAN: Patric Martinez MDOTHER PHYSICIANS:CHIEF COMPLAINT: [...] 09/02/17-COMP METABOLIC PANEL-CBC + DIFF (FOR REMOTE [facility] USE)-PROTEIN ELECTROPHORESIS W/INTERP-MONOCLONAL PROT BLD [...] multiple Extracorporeal shock wave lithotripsy (ESWL) in [facility] , apparently was scheduled for another one [...] nothing new or out of the ordinary. Pnh049 today No more problems with kidney stones.September [...] 1 tablet by mouth once daily.Vit C-Vit U-Cdmhih-Xfh-OM-3 (OCUVITE) 084-65-2-150 qd-rlqj-bp-mg cap Take bymouth once daily.tamsulosin ER (FLOMAX) [...] to palpation. No flank tenderness.Rod Castorena D.O.Medical OncologistMurfreesboro, [place]Referring Provider: BEN JIMÉNEZ [[id number]]Allergies As of Date: 09/02/2017(No Known Allergies)Date Reviewed: 09/02/2017Reviewed by: Amy Horowitz - Fully AssessedReason for Visit: Thrombocytopenia [603] Cmt: follow upPrimary Visit Diagnosis:Thrombocytopenia (HCC) [D69.6]Order(s):COMP METABOLIC PANEL [SQCMP] Order #: [id number] FUTURE CBC + DIFF (FOR REMOTE [facility] USE) [SQRCBCDF] Order #: [id number] FUTURE PROTEIN ELECTROPHORESIS W/INTERP [SQSEPG] Order #: [id number] FUTURE MONOCLONAL PROT BLD W/INTERP [SQMPASRM] Order #: [id number] FUTURE KAPPA/PLAZA,FREE,SER [SQKLFRS] Order #: [id number] FUTUREDisposition: Return if symptoms worsen or fail [...] by DONOVAN CASTORENA DO on 09/17/17 Normal [facility] Comp Metabolic Panelon 09-02 Alanine aminotransferase (ALT) 14 U/L Normal 10-54 [facility] Comment on above: Performed By: #### C DIPIKA, KLFRS, SEPG, MPASRM ####[facility] [place], [place] [phone] Albumin 4.2 g/dL Normal 3.9-4.9 [facility] Comment on above: Performed By: #### C MP, KLFRS, SEPG, MPASRM ####[facility] [address] [place], [place] [phone] Alkaline phosphatase (ALP) 57 U/L Normal 36-108 [facility] Comment on above: Performed By: #### C MP, KLFRS, SEPG, MPASRM ####[facility] [address] [place], [place] [phone] Anion gap 16 mmol/L Normal 9-18 [facility] Comment on above: Performed By: #### C MP, KLFRS, SEPG, MPASRM ####[facility] [address] [place], [place] [phone] Aspartate aminotransferase (AST) 20 U/L Normal 14-40 [facility] Comment on above: Performed By: #### C MP, KLFRS, SEPG, MPASRM ####[place] [address] [address] [place] [phone] Bilirubin (total) 0.9 mg/dL Normal 0.2-1.3 [facility] Comment on above: Performed By: #### C MP, KLFRS, SEPG, MPASRM ####[place] [address] [address] [phone] Calcium 9.5 mg/dL Normal 8.5-10.2 [facility] Comment on above: Performed By: #### C MP, KLFRS, SEPG, MPASRM ####[place] [address] [address] [phone] Chloride 100 mmol/L Normal 97-105 [facility] Comment on above: Performed By: #### C MP, KLFRS, SEPG, MPASRM ####[place] [address] [address] [phone] CO2 22 mmol/L Normal 22-30 [facility] Comment on above: Performed By: #### C MP, KLFRS, SEPG, MPASRM ####[place] [address] [address] [place] [phone] Creatinine 1.31 mg/dL High 0.73-1.22 [facility] Comment on above: Performed By: #### C MP, KLFRS, SEPG, MPASRM ####[place] [address] [address] [place] [phone] eGFR (non-black) 53 . Normal [facility] Comment on above: Result Comment: [...] reflect actual GFR. Performed By: #### C TOMY BAR SEPG, MPASRM ####[facility] [place], [place] [phone] eGFR (non-black) mL/min/{1.73_m2} Normal [facility] Comment on above: Performed By: #### C TOMY BAR, MAX, MPASRM ####[facility] [place], [place] [phone] Glucose mass conc 159 mg/dL High 74-99 [facility] Comment on above: Result Comment: The [place] Diabetes Association (ADA) provides guidance for cutoff [...] Standards of Medical Care in Diabetes 2016, [place] Diabetes Association. Diabetes Care. 2016.39(Suppl 1). Performed By: #### C TOMY BAR, MAX, MPASRM ####[facility] [place], [place] [phone] Potassium molar conc 5.0 mmol/L Normal 3.7-5.1 [facility] Comment on above: Performed By: #### C TOMY BAR SEPG, MPASRM ####[facility] [place], [place] [phone] Protein 6.3 g/dL Normal 6.3-8.0 [facility] Comment on above: Performed By: #### C TOMY BAR SEPG, MPASRM ####[facility] [address] AveClevelandR[place], [place] [phone] Sodium 138 mmol/L Normal 136-144 [facility] Comment on above: Performed By: #### C MP, KLFRS, SEPG, MPASRM ####[facility]leveland[address], [place] [phone] Urea nitrogen 18 mg/dL Normal 9-24 [facility] Comment on above: Performed By: #### C MP, KLFRS, SEPG, MPASRM ####[facility]leveland[address], [place] [phone] Cheval/Plaza,Free,Seron 2017 K/L Ratio, Serum 2.09 High 0.26-1.65 [facility] Comment on above: Performed By: #### C MP, KLFRS, SEPG, MPASRM ####[facility]Cohiohealth gro[facility] methodist hospitalandRalph, [place] [phone] Cheval, Free, Serum 24.7 mg/L High 3.30-19.40 [facility] Comment on above: Result Comment: Rare ly, increased serum free light chains values may not be detected due to antigen excess phenomenon. Results should always be correlated with other laboratory results and clinical findings. Performed By: #### C MP, KLFRS, SEPG, MPASRM ####[facility]Cohiohealth grove city methodist hospitalandRalph, [place] [phone] Lambda, Free, Serum 11.8 mg/L Normal 5.7-26.3 [facility] Comment on above: Result Comment: Rare ly, increased serum free light chains values may not be detected due to antigen excess phenomenon. Results should always be correlated with other laboratory results and clinical findings. Performed By: #### C MP, KLFRS, SEPG, MPASRM ####[facility]leveland[address], [place] [phone] Monoclonl Protein,Blon 09-02 MPA Chinmay/Ledezma Ratio 1.75 Normal 1-3 [facility] Comment on above: Performed By: #### C MP, KLFRS, SEPG, MPASRM ####[facility] AveClevelShawn [place] [id number] MPA Result No M protein is identified. Normal No M protein is identified . [facility] Comment on above: Performed By: #### C MP, KLFRS, SEPG, MPASRM ####[facility] [phone] MPA Serum IgA 164 mg/dL Normal 78-391 [facility] Comment on above: Performed By: #### C MP, KLFRS, SEPG, MPASRM ####[facility]ClevelShawn Ville [phone] MPA Serum IgG 602 mg/dL Low [phone] [facility] Comment on above: Performed By: #### C MP, KLFRS, SEPG, MPASRM ####[facility]CJohn [address] [phone] MPA Serum IgM 65 mg/dL Normal 53-334 [facility] Comment on above: Performed By: #### C MP, KLFRS, SEPG, MPASRM ####[facility]ClevelShawn Ville [phone] Serum Cheval 498 mg/dL Low [phone] [facility] Comment on above: Performed By: #### C MP, KLFRS, SEPG, MPASRM ####[facility] AveClevelandJames Ville [phone] Serum Lambda 285 mg/dL Normal 253-653 [facility] Comment on above: Performed By: #### C MP, KLFRS, SEPG, MPASRM ####[facility] [address] AveCJohn Ville [phone] Staff Review Reviewed by Aquilino Hendricks MD ([id number]) Normal [facility] Comment on above: Performed By: #### C MP, KLFRS, SEPG, MPASRM ####[facility] [address] [place], [place] [phone] PROGRESSon 09-02-2017 PROGRESS HNO ID: [id number] thor: Donovan Kenny Aquino: (none)Author Type: PhysicianType: Progress NotesFiled: 09/17/2017 9:27 AMNote Text:PATIENT NAME: Tammi Bustamante: [id number] PHYSICIAN: Ben Jiménez MD417 [facility] [id number] CARE PHYSICIAN: Patric Martinez MDOTHER PHYSICIANS:CHIEF COMPLAINT: [...] 09/02/17-COMP METABOLIC PANEL-CBC + DIFF (FOR REMOTE [facility] USE)-PROTEIN ELECTROPHORESIS W/INTERP-MONOCLONAL PROT BLD [...] 1 tablet by mouth once daily.Vit C-Vit O-Ugalvk-Src-OM-3 (OCUVITE) [id number] py-trjq-je-mg cap Takeby mouth once daily.tamsulosin ER (FLOMAX) [...] to palpation. No flank tenderness.Rod Castorena D.O.Medical OncologistMurfreesboro, [place] Normal [facility] Protein Electrophor.on 09-02 Albumin 3.74 g/dL Normal 3.37-4.23 [facility] Comment on above: Performed By: #### C MP, KLFRS, SEPG, MPASRM ####[address] AvLauren Ville [phone] Alpha 1 Globulin 0.22 gm/dL Normal 0.18-0.31 [facility] Comment on above: Performed By: #### C MP, KLFRS, SEPG, MPASRM ####[address] AveCSalisbury, [place] [phone] Alpha 2 Globulin 0.72 gm/dL Normal 0.52-0.97 [facility] Comment on above: Performed By: #### C MP, KLFRS, SEPG, MPASRM ####[place] [address]CJohn [place] [phone] Beta Globulin 0.89 gm/dL Normal 0.84-1.36 [facility] Comment on above: Performed By: #### C MP, KLFRS, SEPG, MPASRM ####[place] [address]CJohn [place] [phone] Gamma Globulin 0.73 gm/dL Normal 0.70-1.44 [facility] Comment on above: Performed By: #### C MP, KLFRS, SEPG, MPASRM ####[place] [phone] Interpretation SEE COMMENT Normal [facility] Comment on above: Result Comment: No d efinitive M protein is identified on protein electrophoresis. Performed By: #### C MP, KLFRS, SEPG, MPASRM ####[place] [phone] M Protein Location N/A Normal [facility] Comment on above: Performed By: #### C MP, KLFRS, SEPG, MPASRM ####[place] [phone] M Dhiraj Concentratn 0.00 gm/dL Normal 0.00 [facility] Comment on above: Performed By: #### C MP, KLFRS, SEPG, MPASRM ####[place] [phone] SPE Staff Review Reviewed by Aquilino Hendricks MD ([id number]) Normal [facility] Comment on above: Performed By: #### C MP, KLFRS, SEPG, MPASRM ####[place] [phone] Total Protein, SPE 6.3 g/dL Normal 6.0-8.4 [facility] Comment on above: Performed By: #### C MP, KLFRS, SEPG, MPASRM ####[place] [phone] Remote CBCDIF (for [facility] use o nly)on 09-02-2017 Abs Baso 0.03 k/uL Normal 0.00-0.10 [facility] Abs [place] 0.49 k/uL Normal 0.00-0.86 [facility] Abs Neut 4.04 k/uL Normal 1.45-7.50 [facility] Basophils/100 WBC Auto (Bld) 0.5 % Normal [facility] Eosinophils 0.36 10*3/uL Normal 0.00-0.45 [facility] Eosinophils/100 leukocytes 5.8 % Normal [facility] Erythrocyte distribution width Auto Ratio (RBC) 13.4 % Normal 11.5-15.0 [facility] Erythrocytes (RBC) 4.86 10*6/uL Normal 4.20-6.00 [facility] Hematocrit (HCT) 42.4 % Normal 39.0-51.0 [facility] Hemoglobin mass conc (Bld) 14.9 g/dL Normal 13.0-17.0 [facility] Lymphocytes 1.24 10*3/uL Normal 1.00-4.00 [facility] Lymphocytes/100 leukocytes 20.1 % Normal [facility] MCH 30.7 pG Normal 26.0-34.0 [facility] MCHC mass conc (RBC) 35.1 g/dL Normal 30.5-36.0 [facility] MCV 87.2 fL Normal 80.0-100.0 [facility] Monocytes/100 leukocytes 8.0 % Normal [facility] Neutrophils/100 WBC Auto (Bld) 65.6 % Normal [facility] Platelet mean volume (PMV) 10.2 fL Normal 9.0-12.7 [facility] Platelets 143 10*3/uL Low 150-400 [facility] WBC (Leukocytes) 6.16 10*3/uL Normal 3.70-11.00 [facility] Vital Signs Date Time Vital Sign Value Performing Clinician Facility 09-12-2024 12:50-0400 Body height 180.3 cm Asia Sexton DPM Work Phone: [facility] 09-12-2024 12:50-0400 Body mass index (BMI) [Ratio] 25.8 kg/m2 Asia Sexton DPM Work Phone: [facility] 09-12-2024 12:50-0400 Body weight 83.92 kg Asia Sexton DPM Work Phone: [facility] 07-27-2024 10:08-0400 Body height 177.8 cm [facility] 07-27-2024 10:08-0400 Body mass index (BMI) [Ratio] 26.4 kg/m2 [facility] 07-27-2024 10:08-0400 Body weight 83.46 kg [facility] 07-27-2024 10:08-0400 Diastolic blood pressure 76 mm[Hg] [facility] 07-27-2024 10:08-0400 Heart rate 74 /min [facility] 07-27-2024 10:08-0400 Respiratory rate 12 /min [facility] 07-27-2024 10:08-0400 SaO2% (BldA) [Mass fraction] 97 % [facility] 07-27-2024 10:08-0400 Systolic blood pressure 124 mm[Hg] [facility] 06-08-2024 15:28-0400 Body height 177.8 cm Neo Mathew MD Work Phone: [facility] 06-08-2024 15:28-0400 Body mass index (BMI) [Ratio] 26.89 kg/m2 Neo Mathew MD Work Phone: [facility] 06-08-2024 15:28-0400 Body weight 85 kg Neo Mathew MD Work Phone: [facility] 06-08-2024 15:28-0400 Diastolic blood pressure 60 mm[Hg] Neo Mathew MD Work Phone: [facility] 06-08-2024 15:28-0400 Heart rate 91 /min Neo Mathew MD Work Phone: [facility] 06-08-2024 15:28-0400 Systolic blood pressure 118 mm[Hg] Neo Mathew MD Work Phone: [facility] 05-16-2024 11:49-0500 Diastolic blood pressure 67 mm[Hg] KIMBERLI COMBS [facility] 05-16-2024 11:49-0500 Heart rate 84 /min KIMBERLI COMBS [facility] 05-16-2024 11:49-0500 Respiratory rate 16 /min KIMBERLI COMBS [facility] 05-16-2024 11:49-0500 Systolic blood pressure 118 mm[Hg] KIMBERLI COMBS [facility] 03-31-2024 11:05-0500 Body height 177.8 cm [facility] 03-31-2024 11:05-0500 Body mass index (BMI) [Ratio] 27.3 kg/m2 [facility] 03-31-2024 11:05-0500 Body temperature 97 [degF] [facility] 03-31-2024 11:05-0500 Body weight 86.29 kg [facility] 03-31-2024 11:05-0500 Diastolic blood pressure 60 mm[Hg] [facility] 03-31-2024 11:05-0500 Heart rate 67 /min [facility] 03-31-2024 11:05-0500 Respiratory rate 16 /min [facility] 03-31-2024 11:05-0500 SaO2% (BldA) [Mass fraction] 98 % [facility] 03-31-2024 11:05-0500 Systolic blood pressure 111 mm[Hg] [facility] 03-28-2024 08:54-0500 Blood Pressure Location KIMBERLI COMBS [facility] 03-28-2024 08:54-0500 Body temperature 98.6 [degF] KIMBERLI COMBS [facility] 03-28-2024 08:54-0500 Diastolic blood pressure 57 mm[Hg] KIMBERLI COMBS [facility] 03-28-2024 08:54-0500 Heart rate 78 /min KIMBERLI COMBS [facility] 03-28-2024 08:54-0500 Respiratory rate 18 /min KIMBERLI COMBS [facility] 03-28-2024 08:54-0500 Systolic blood pressure 98 mm[Hg] KIMBERLI COMBS [facility] 03-14-2024 09:06-0500 Body height 180.34 cm [facility] 03-14-2024 09:06-0500 Body mass index (BMI) [Ratio] 25.7 kg/m2 [facility] 03-14-2024 09:06-0500 Body weight 83.46 kg [facility] 03-14-2024 09:06-0500 Diastolic blood pressure 68 mm[Hg] [facility] 03-14-2024 09:06-0500 Heart rate 69 /min [facility] 03-14-2024 09:06-0500 Systolic blood pressure 107 mm[Hg] [facility] 02-12-2024 09:49-0500 Body height 180.34 cm [facility] 02-12-2024 09:49-0500 Body mass index (BMI) [Ratio] 25.9 kg/m2 [facility] 02-12-2024 09:49-0500 Body weight 84.53 kg [facility] 02-12-2024 09:49-0500 Diastolic blood pressure 68 mm[Hg] [facility] 02-12-2024 09:49-0500 Heart rate 72 /min [facility] 02-12-2024 09:49-0500 SaO2% (BldA) [Mass fraction] 97 % [facility] 02-12-2024 09:49-0500 Systolic blood pressure 118 mm[Hg] [facility] 02-08-2024 10:48-0500 Body height 180.3 cm Asia Sexton DPM Work Phone: [facility] 02-08-2024 10:48-0500 Body mass index (BMI) [Ratio] 25.8 kg/m2 Asia Sexton DPM Work Phone: [facility] 02-08-2024 10:48-0500 Body weight 83.92 kg Asia Sexton DPM Work Phone: [facility] 01-25-2024 11:29-0500 Body mass index (BMI) [Ratio] 25.8 kg/m2 Shayla Tsai RAIL TRANSIT OPERATOR Work Phone: [facility] 01-25-2024 11:29-0500 Body weight 83.92 kg Shayla Tsai RAIL TRANSIT OPERATOR Work Phone: [facility] 01-25-2024 11:29-0500 Diastolic blood pressure 66 mm[Hg] Shayla Tsai RAIL TRANSIT OPERATOR Work Phone: [facility] 01-25-2024 11:29-0500 Heart rate 69 /min Shayla Tsai RAIL TRANSIT OPERATOR Work Phone: [facility] 01-25-2024 11:29-0500 Systolic blood pressure 121 mm[Hg] Shayla Tsai RAIL TRANSIT OPERATOR Work Phone: [facility] 12-08-2023 20:10-0400 Body height 180.34 cm [facility] 12-08-2023 20:10-0400 Body mass index (BMI) [Ratio] 24.8 kg/m2 [facility] 12-08-2023 20:10-0400 Body weight 80.79 kg [facility] 12-08-2023 20:10-0400 Diastolic blood pressure 72 mm[Hg] [facility] 12-08-2023 20:10-0400 Heart rate 108 /min [facility] 12-08-2023 20:10-0400 Systolic blood pressure 108 mm[Hg] [facility] 11-25-2023 09:17-0400 Diastolic blood pressure 60 mm[Hg] Rebekah Harris MD Work Phone: [facility] 11-25-2023 09:17-0400 Systolic blood pressure 115 mm[Hg] eRbekah Harris MD Work Phone: [facility] 11-09-2023 10:53-0400 Body height 180.3 cm Asia Sexton DPM Work Phone: [facility] 11-09-2023 10:53-0400 Body mass index (BMI) [Ratio] 25.94 kg/m2 Asia Carlie DPM Work Phone: [facility] 11-09-2023 10:53-0400 Body weight 84.37 kg Asia Carlie DPM Work Phone: [facility] 10-14-2023 09:59-0400 Body height 180.34 cm [facility] 10-14-2023 09:59-0400 Body mass index (BMI) [Ratio] 25.9 kg/m2 [facility] 10-14-2023 09:59-0400 Body weight 84.36 kg [facility] 10-14-2023 09:59-0400 Diastolic blood pressure 70 mm[Hg] [facility] 10-14-2023 09:59-0400 Heart rate 88 /min [facility] 10-14-2023 09:59-0400 Respiratory rate 12 /min [facility] 10-14-2023 09:59-0400 Systolic blood pressure 114 mm[Hg] [facility] 06-17-2023 13:40-0400 Body height 180.34 cm [facility] 06-17-2023 13:40-0400 Body mass index (BMI) [Ratio] 25.9 kg/m2 [facility] 06-17-2023 13:40-0400 Body weight 84.36 kg [facility] 06-17-2023 13:40-0400 Diastolic blood pressure 66 mm[Hg] [facility] 06-17-2023 13:40-0400 Heart rate 75 /min [facility] 06-17-2023 13:40-0400 Respiratory rate 12 /min [facility] 06-17-2023 13:40-0400 Systolic blood pressure 111 mm[Hg] [facility] 05-18-2023 10:47-0500 Blood Pressure Location Jourdan URBINA [facility] 05-18-2023 10:47-0500 Diastolic blood pressure 80 mm[Hg] Jourdangm URBINA [facility] 05-18-2023 10:47-0500 Heart rate 68 /min Jourdangm URBINA [facility] 05-18-2023 10:47-0500 Respiratory rate 16 /min Jourdan URBINA [facility] 05-18-2023 10:47-0500 Systolic blood pressure 127 mm[Hg] Jourdan URBINA [facility] 05-08-2023 13:30-0500 Body height 180.34 cm [facility] 05-08-2023 13:30-0500 Body mass index (BMI) [Ratio] 25.4 kg/m2 [facility] 05-08-2023 13:30-0500 Body weight 82.55 kg [facility] 05-08-2023 13:30-0500 Diastolic blood pressure 80 mm[Hg] [facility] 05-08-2023 13:30-0500 Heart rate 80 /min [facility] 05-08-2023 13:30-0500 Respiratory rate 12 /min [facility] 05-08-2023 13:30-0500 Systolic blood pressure 121 mm[Hg] [facility] 04-30-2023 15:12-0500 Body height 180.34 cm [facility] 04-30-2023 15:12-0500 Body mass index (BMI) [Ratio] 25.8 kg/m2 [facility] 04-30-2023 15:12-0500 Body temperature 96.4 [degF] [facility] 04-30-2023 15:12-0500 Body weight 83.97 kg [facility] 04-30-2023 15:12-0500 Diastolic blood pressure 70 mm[Hg] [facility] 04-30-2023 15:12-0500 Heart rate 98 /min [facility] 04-30-2023 15:12-0500 Respiratory rate 18 /min [facility] 04-30-2023 15:12-0500 SaO2% (BldA) [Mass fraction] 97 % [facility] 04-30-2023 15:12-0500 Systolic blood pressure 120 mm[Hg] [facility] 02-16-2023 10:43-0500 Blood Pressure Location Jourdan URBINA [facility] 02-16-2023 10:43-0500 Diastolic blood pressure 60 mm[Hg] Jourdan URBINA [facility] 02-16-2023 10:43-0500 Heart rate 62 /min Jourdan RUBINA [facility] 02-16-2023 10:43-0500 Respiratory rate 16 /min Jourdan URBINA [facility] 02-16-2023 10:43-0500 Systolic blood pressure 105 mm[Hg] Jourdan URBINA [facility] 02-12-2023 11:30-0500 Body height 180.34 cm Wilder Sam Other [facility] 02-12-2023 11:30-0500 Body mass index (BMI) [Ratio] 26.02 kg/m2 Wilder Sam Other [employer] Other 02-12-2023 11:30-0500 Body weight 84.64 kg Wilder Ball Other [facility] 02-12-2023 11:30-0500 Diastolic blood pressure 74 mm[Hg] Wilder Ball Other [facility] 02-12-2023 11:30-0500 Respiratory rate 12 /min Wilder Ball Other [employer] Other 02-12-2023 11:30-0500 Systolic blood pressure 119 mm[Hg] Wilder Ball Other [facility] 01-26-2023 09:18-0500 Body height 177.8 cm Kaiser Gómez MD Work Phone: [facility] 01-26-2023 09:18-0500 Body mass index (BMI) [Ratio] 26.69 kg/m2 Kaiser Gómez MD Work Phone: [facility] 01-26-2023 09:18-0500 Body weight 84.37 kg Kaiser Gómez MD Work Phone: [facility] 01-26-2023 09:18-0500 Diastolic blood pressure 86 mm[Hg] Kaiser Gómez MD Work Phone: [facility] 01-26-2023 09:18-0500 Heart rate 78 /min Kaiser Gómez MD Work Phone: [facility] 01-26-2023 09:18-0500 Systolic blood pressure 124 mm[Hg] Kaiser Gómez MD Work Phone: [facility] 11-13-2022 09:40-0400 Body height 180.34 cm Nabil Sonia Other [employer] Other 11-13-2022 09:40-0400 Body mass index (BMI) [Ratio] 26.3 kg/m2 Nabil Sonia Other [employer] Other 11-13-2022 09:40-0400 Body temperature 97.7 [degF] Nabil Sonia Other [employer] Other 11-13-2022 09:40-0400 Body weight 85.55 kg Nabil Sonia Other [employer] Other 11-13-2022 09:40-0400 Diastolic blood pressure 70 mm[Hg] Nabil Sonia Other [employer] Other 11-13-2022 09:40-0400 Respiratory rate 18 /min Nabil Sonia Other [employer] Other 11-13-2022 09:40-0400 SaO2% (BldA) [Mass fraction] 96 % Nabil Sonia Other [employer] Other 11-13-2022 09:40-0400 Systolic blood pressure 110 mm[Hg] Nabil Sonia Other [employer] Other 04-17-2022 11:00-0500 Body height 180.34 cm Nabil Sonia Other [employer] Other 04-17-2022 11:00-0500 Body mass index (BMI) [Ratio] 26.58 kg/m2 Nabil Sonia Other [employer] Other 04-17-2022 11:00-0500 Body temperature 96.5 [degF] Nabil Sonia Other [employer] Other 04-17-2022 11:00-0500 Body weight 86.46 kg Nabil Sonia Other [employer] Other 04-17-2022 11:00-0500 Diastolic blood pressure 71 mm[Hg] Nabil Sonia Other [facility] [employer] Other 04-17-2022 11:00-0500 Respiratory rate 18 /min Nabil Sonia Other [employer] Other 04-17-2022 11:00-0500 SaO2% (BldA) [Mass fraction] 97 % Nabil Sonia Other [employer] Other 04-17-2022 11:00-0500 Systolic blood pressure 131 mm[Hg] Nabil Sonia Other [facility] [employer] Other 01-15-2022 15:30-0400 Body height 177.8 cm Wilder Luna ParentingInformer Work Phone: [facility] [employer] DO Work Phone: 01-15-2022 15:30-0400 Body mass index (BMI) [Ratio] 27.26 kg/m2 Wilder Luna ParentingInformer Work Phone: [facility] [employer] DO Work Phone: 01-15-2022 15:30-0400 Body surface area Derived from formula 2.04 m2 Wilder Luna Ball Work Phone: [facility] Spyder Lynk DO Work Phone: 01-15-2022 15:30-0400 Body weight 86.18 kg Wilder Luna Ball Work Phone: [employer] [employer] DO Work Phone: 01-15-2022 15:30-0400 Diastolic blood pressure 60 mm[Hg] Wilder Luna Ball Work Phone: [facility] DO Work Phone: 01-15-2022 15:30-0400 Heart rate 68 /min Wilder Luna ParentingInformer Work Phone: [facility] [place] [facility] 250 DO Work Phone: 01-15-2022 15:30-0400 Systolic blood pressure 112 mm[Hg] Wilder Luna ParentingInformer Work Phone: [facility] 250 DO Work Phone: 2021 11:00-0400 Body height 180.34 cm Nabil Sonia Other [employer] Other 2021 11:00-0400 Body mass index (BMI) [Ratio] 26.11 kg/m2 Nabil Sonia Other [employer] Other 2021 11:00-0400 Body temperature 97.4 [degF] Nabil Sonia Other [employer] Other 2021 11:00-0400 Body weight 84.91 kg Nabil Sonia Other [employer] Other 2021 11:00-0400 Diastolic blood pressure 70 mm[Hg] Nabil Sonia Other [employer] Other 2021 11:00-0400 Respiratory rate 18 /min Nabil Sonia Other [employer] Other 2021 11:00-0400 SaO2% (BldA) [Mass fraction] 97 % Nabil Sonia Other [employer] Other 2021 11:00-0400 Systolic blood pressure 110 mm[Hg] Nabil Sonia Other [employer] Other 07-29-2021 12:30-0400 Body height 180.34 cm Angel Cotton Other [employer] Other 07-29-2021 12:30-0400 Body mass index (BMI) [Ratio] 26.05 kg/m2 Angel Cotton Other [employer] Other 07-29-2021 12:30-0400 Body weight 84.73 kg Angel Cotton Other [employer] Other 04-09-2021 11:40-0500 Body height 177.8 cm Wilder E Ball Work Phone: [facility] [place] [facility] 250 DO Work Phone: 04-09-2021 11:40-0500 Body mass index (BMI) [Ratio] 27.12 kg/m2 Wilder E Ball Work Phone: [facility] [place] [facility] 250 DO Work Phone: 04-09-2021 11:40-0500 Body surface area Derived from formula 2.04 m2 Wilder E Ball Work Phone: [facility] [employer] 250 DO Work Phone: 04-09-2021 11:40-0500 Body weight 85.73 kg Wilder E Ball Work Phone: [facility] [employer] 250 DO Work Phone: 04-09-2021 11:40-0500 Diastolic blood pressure 70 mm[Hg] Wilder E Ball Work Phone: [facility] [employer] 250 DO Work Phone: 04-09-2021 11:40-0500 Heart rate 72 /min Wilder E Ball Work Phone: [facility] [employer] 250 DO Work Phone: 04-09-2021 11:40-0500 Systolic blood pressure 122 mm[Hg] Wilder Sam Work Phone: [facility] 250 DO Work Phone: Encounters Encounter Date Encounter Type Care Provider Facility Start: 11-21-2024 ambulatory KIMBERLI Learyi ty:BALJINDER Mandel Start: 10-19-2024 End: 10-19-2024 Bamboo flowsheet Susana A Palomo CCC-A Work Phone: [facility] Start: 10-19-2024 End: 10-19-2024 Bamboo flowsheet Susana A Palomo CCC-A Work Phone: [facility] Start: 10-19-2024 End: 10-19-2024 Clinical Support Susana A Palomo CCC-A Work Phone: [facility] Comment on above: Sensorineural hearin g loss (SNHL) of both ears (Primary Dx) Start: 10-05-2024 End: 10-05-2024 Bamboo flowsheet Susana A Palomo CCC-A Work Phone: [facility] Start: 10-05-2024 End: 10-05-2024 Bamboo flowsheet Susana A Palomo CCC-A Work Phone: [facility] Start: 10-05-2024 End: 10-05-2024 Clinical Support Susana A Palomo CCC-A Work Phone: [facility] Comment on above: Sensorineural hearin g loss (SNHL) of both ears (Primary Dx) Start: 09-21-2024 End: 09-21-2024 ambulatory ASIA SEXTNO Not Available Start: 09-21-2024 End: 09-21-2024 Patient encounter procedure [facility] Comment on above: Sensorineural hearin g loss (SNHL) of both ears (Primary Dx) Start: 09-12-2024 End: 09-12-2024 Bamboo flowsheet Asia Sexton DPM Work Phone: [facility] Start: 09-12-2024 End: 09-12-2024 Bamboo flowsheet Asia Sexton DPM Work Phone: [facility] Start: 09-12-2024 End: 09-12-2024 Patient encounter procedure Asia Sexton DPM Work Phone: [facility] Comment on above: Dermatophytosis of n ail (Primary Dx); Dystrophic nail; Pain around toenail, right foot; Pain around toenail, left foot Start: 09-12-2024 End: 09-12-2024 ambulatory ASIA SEXTON Not Available Start: 08-17-2024 End: 08-17-2024 Bamboo flowsheet Susana Rome CCC-A Work Phone: [facility] Start: 08-17-2024 End: 08-17-2024 Bamboo flowsheet Susanamyranda Rome CCC-A Work Phone: [facility] Start: 08-17-2024 End: 08-17-2024 Clinical Support Susana Rome CCC-A Work Phone: [facility] Comment on above: Sensorineural hearin g loss (SNHL) of both ears (Primary Dx) Start: 07-27-2024 End: 07-27-2024 ambulatory [facility] Work Phone: Start: 07-27-2024 End: 07-27-2024 Patient encounter procedure [facility] Work Phone: Start: 06-08-2024 End: 06-08-2024 Office outpatient visit 25 minutes Neo Mathew MD Work Phone: [facility] Comment on above: Ventricular tachycar juanito, paroxysmal (Multi) (Primary Dx); Bilateral carotid artery stenosis; Palpitations; Mixed hyperlipidemia; History of right-sided carotid endarterectomy; Essential hypertension; Abnormal EKG; TIA (transient ischemic attack); BMI 26.0-26.9,adult Start: 06-08-2024 End: 06-08-2024 ambulatory [facility] Start: 05-23-2024 End: 05-23-2024 Patient encounter procedure Asia Sexton DP Work Phone: [facility] Comment on above: Dermatophytosis of n ail (Primary Dx); Dystrophic nail; Pain around toenail, right foot; Pain around toenail, left foot Start: 05-23-2024 End: 05-23-2024 ambulatory ASIA SEXTON Not Available Start: 05-16-2024 End: 05-16-2024 ambulatory KIMBERLI COMBS Facility:[facility] Start: 05-16-2024 End: 05-16-2024 Patient encounter procedure KIMBERLI COMBS [facility] Start: 04-04-2024 End: 04-04-2024 ambulatory Priti X Oro[place]ch [facility] Start: 04-04-2024 End: 04-04-2024 Patient encounter procedure Priti X Orzech [facility] [place] Start: 03-31-2024 End: 03-31-2024 ambulatory [facility] Work Phone: Start: 03-31-2024 End: 03-31-2024 Patient encounter procedure [facility] Neph[facility] Juan C Work Phone: Start: 03-29-2024 End: 03-29-2024 ambulatory KIMBERLI COMBS Facility:[facility] Start: 03-29-2024 End: 03-29-2024 Patient encounter procedure KIMBERLI COMBS [facility] Start: 03-28-2024 End: 03-28-2024 ambulatory KIMBERLISARA COMBS Facility: [facility] Start: 03-28-2024 End: 03-28-2024 Patient encounter procedure KIMBERLI COMBS [facility] [place] Start: 03-22-2024 Non-patient / Non-visit [facility] Work Phone: Start: 03-14-2024 End: 03-14-2024 Patient encounter procedure [facility] Work Phone: Start: 03-08-2024 Non-patient / Non-visit [facility] Work Phone: Start: 03-05-2024 Non-patient / Non-visit [facility] Work Phone: Start: 02-12-2024 End: 02-12-2024 Patient encounter procedure [facility] Work Phone: Start: 02-10-2024 Patient encounter procedure [facility] Start: 02-08-2024 End: 02-08-2024 Bamboo flowsheet Asia Sexton DPM Work Phone: [facility] Start: 02-08-2024 End: 02-08-2024 Bamboo flowsheet Asia Sexton DPM Work Phone: [facility] Start: 02-08-2024 End: 02-08-2024 ambulatory ASIA SEXTON Not Available Start: 02-08-2024 End: 02-08-2024 Patient encounter procedure Asia Sexton DPM Work Phone: [facility] Comment on above: Dermatophytosis of n ail (Primary Dx); Dystrophic nail; Pain around toenail, right foot; Pain around toenail, left foot Start: 02-03-2024 Non-patient / Non-visit [facility] Work Phone: Start: 01-25-2024 End: 01-25-2024 Bamboo dannyheet Shayla Tsai RAIL TRANSIT OPERATOR [facility] Phone[facility] [address] Start: 01-25-2024 End: 01-25-2024 Bamboo flowsheet Shayla Tsai RAIL TRANSIT OPERATOR Work Phone: [facility] [address] Start: 01-25-2024 End: 01-25-2024 ambulatory SHAYLA TSAI Not Available Start: 01-25-2024 End: 01-25-2024 Office outpatient visit 15 minutes Shayla Camilo RAIL TRANSIT OPERATOR Work Phone: [facility] [address] Comment on above: Parkinson's disease without dyskinesia, unspecified whether manifestations fluctuate (CMS/HCC) (Primary Dx); Cognitive impairment; Cerebrovascular accident (CVA), unspecified mechanism (CMS/HCC); Carotid artery disease, unspecified laterality, unspecified type (CMS/HCC) Start: 12-09-2023 End: 12-09-2023 ambulatory [facility] Work Phone: Start: 12-09-2023 End: 12-09-2023 Patient encounter procedure [facility] Work Phone: Start: 12-07-2023 Non-patient / Non-visit [facility] Work Phone: Start: 12-01-2023 End: 12-01-2023 ambulatory [facility] Work Phone: Start: 12-01-2023 End: 12-01-2023 Patient encounter procedure [facility] Work Phone: Start: 11-25-2023 End: 11-25-2023 Patient encounter procedure Rebekah Harris MD Work Phone: 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) Start: 11-25-2023 End: 11-25-2023 ambulatory REBEKAH HARRIS Not Available Start: 11-23-2023 ambulatory Jourdan Anderson CIARA Keith ty:[facility] Start: 11-17-2023 End: 11-17-2023 Lab Drop off Priti X Kevch [facility] Start: 11-17-2023 End: 11-17-2023 ambulatory Priti X Orzech [place] [place] Start: 11-17-2023 End: 11-17-2023 Patient encounter procedure Priti X Orzech [facility] Start: 11-09-2023 End: 11-09-2023 Bamboo flowsheet Asia Sexton DPM Work Phone: [facility] Start: 11-09-2023 End: 11-09-2023 Bamboo flowsheet Asia Sexton DPM Work Phone: [facility] Start: 11-09-2023 End: 11-09-2023 ambulatory ASIA SEXTON Not Available Start: 11-09-2023 End: 11-09-2023 Patient encounter procedure Asia Sexton DPM Work Phone: [facility] Comment on above: Dermatophytosis of n ail (Primary Dx); Dystrophic nail; Pain around toenail, right foot; Pain around toenail, left foot Start: 10-23-2023 End: 10-23-2023 ambulatory KARISSA DAVENPORT Not Available Start: 10-14-2023 End: 10-14-2023 ambulatory [facility] Work Phone: Start: 10-14-2023 End: 10-14-2023 Patient encounter procedure [facility] Work Phone: Start: 10-05-2023 End: 10-05-2023 ambulatory NAIF ESTRADA [facility] Start: 09-14-2023 End: 09-14-2023 ambulatory BONILLA LOPEZ [facility] Start: 09-11-2023 End: 09-11-2023 ambulatory [facility] Work Phone: Start: 09-11-2023 End: 09-11-2023 Patient encounter procedure [facility] Work Phone: Start: 06-17-2023 End: 06-17-2023 ambulatory [facility] Work Phone: Start: 06-17-2023 End: 06-17-2023 Patient encounter procedure [facility] Work Phone: Start: 06-16-2023 Non-patient / Non-visit [facility] Work Phone: Start: 06-15-2023 Non-patient / Non-visit [facility] Work Phone: Start: 06-14-2023 Non-patient / Non-visit [facility] [place] Work Phone: Start: 05-18-2023 End: 05-18-2023 ambulatory Jourdan URBINA Facility[facility] Start: 05-18-2023 End: 05-18-2023 Patient encounter procedure Jourdan URBINA [facility] Start: 05-08-2023 End: 05-08-2023 ambulatory [facility] Work Phone: Start: 05-08-2023 End: 05-08-2023 Patient encounter procedure [facility] Work Phone: Start: 04-30-2023 End: 04-30-2023 ambulatory [facility] Work Phone: Start: 04-30-2023 End: 04-30-2023 Patient encounter procedure [facility] Juan C Work Phone: Start: 04-28-2023 End: 04-28-2023 ambulatory Jourdan Justin URBINA [place] [place] [place] Start: 04-28-2023 End: 04-28-2023 Patient encounter procedure Jourdan URBINA [facility] Start: 04-09-2023 End: 04-09-2023 ambulatory Priti X Kevch Facility:[facility] [place] Start: 04-09-2023 End: 04-09-2023 Patient encounter procedure Priti X Orzech [facility] Start: 04-06-2023 End: 04-06-2023 ambulatory Jourdan URBINA Facility:CD:[id number] Start: 03-30-2023 End: 03-30-2023 ambulatory Wilder Sam Other [employer] Other Start: 03-30-2023 Telephone encounter Wilder Sam [facility] Start: 03-18-2023 End: 03-18-2023 ambulatory Nabil Sonia Other [employer] Other Start: 03-18-2023 Telephone encounter Nabil Sonia [facility] Start: 02-16-2023 End: 02-16-2023 Patient encounter procedure Jourdan URBINA [facility] Start: 02-12-2023 End: 02-12-2023 ambulatory Wilder Sam Other [employer] Other Start: 02-12-2023 Patient encounter procedure Wilder Sam [facility] Start: 02-12-2023 End: 02-12-2023 Patient encounter procedure [facility] Work Phone: Start: 01-26-2023 End: 01-26-2023 Office outpatient visit 25 minutes Kaiser Gómez MD Work Phone: [facility] Comment on above: Mixed hyperlipidemia (Primary Dx); Ventricular tachycardia, paroxysmal (CMS/HCC); TIA (transient ischemic attack); History of right-sided carotid endarterectomy; Essential hypertension; Bilateral carotid artery stenosis Start: 11-13-2022 End: 11-13-2022 ambulatory Nabil Sonia Other [employer] Other Start: 11-13-2022 Office outpatient vi sit 25 minutes Nabil Sonia [facility] Juan C Start: 09-09-2022 End: 09-09-2022 ambulatory Nabil Sonia Other [employer] Other Start: 09-09-2022 Telephone encounter Nabil Sonia [facility] Start: 07-16-2022 End: 07-17-[address] KAISER GÓMEZ Facility:[facility] Start: 04-29-2022 End: 04-29-2022 ambulatory Wilder Sam Other [employer] Other Start: 04-29-2022 Telephone encounter Wilder Sam [facility] Start: 04-17-2022 End: 04-17-2022 ambulatory Nabil Sonia Other [employer] Other Start: 04-17-2022 Office outpatient vi sit 15 minutes Nabil Sonia [facility] Juan C Start: 04-07-2022 End: 04-07-2022 ambulatory Wilder Sam Other [employer] Other Start: 04-07-2022 Telephone encounter [facility] Start: 04-02-2022 End: 04-02-2022 ambulatory Wilder Sam Other [employer] Other Start: 04-02-2022 Telephone encounter [facility] Start: 03-26-2022 End: 03-27-[address] DOCTOR MISC Facility:[facility] Start: 03-11-2022 End: 03-11-2022 ambulatory Conor Baer Other [employer] Other Start: 03-11-2022 Telephone encounter Conor Baer [facility] Start: 02-10-2022 Adult health examination Nabil Sonia Other [employer] Other Start: 01-15-2022 Office outpatient vi sit 15 minutes Wilder Sam Work Phone: [facility] 250 DO Work Phone: Start: 01-15-2022 ambulatory Wilder Sam Fa cility: Start: 01-10-2022 End: 01-11-[address] VANI RIDLEY Facility:[facility] Start: 12-21-2021 End: 12-21-2021 ambulatory ASIA ESPINAL Facility:[facility] Start: 10-30-2021 End: 10-31-[address] WILDER SAM Facility:[facility] Start: 2021 End: 2021 ambulatory Nabil Sonia Other [employer] Other Start: 2021 Office outpatient vi sit 25 minutes Nabil Sonia [facility] Juan C Start: 2021 Telephone encounter Nabil Sonia [facility] Start: 08-26-2021 End: 08-26-2021 ambulatory Angel Cotton Facility:[facility] Start: 08-01-2021 End: 08-02-[address] WILDER SAM Facility:[facility] Start: 07-29-2021 End: 07-29-2021 ambulatory Angel Cotton Other [employer] Other Start: 07-29-2021 Postop follow up vis it related to original px Angel Cotton [facility] Start: 07-15-2021 End: 07-24-2021 Evaluation and management of inpatient Jose Barber Facility:[facility] Start: 07-15-2021 End: 07-15-2021 ambulatory Dixie Carroll Facility:[facility] Start: 04-09-2021 Office outpatient vi sit 25 minutes Wilder Cheryl Sam Work Phone: [facility] 250 DO Work Phone: Start: 04-09-2021 ambulatory Kaiser Gómez II Faci lity: Start: 09-02-2017 End: 09-17-2017 Ambulatory DONOVAN CASTORENA [facility] Hwang Procedures Date Procedure Procedure Detail Performing Clinician Start: 08-17-2024 AUDITORY FUNCTION TESTS Susana Rome CCC-A Work Phone: Start: 06-08-2024 Ecg routine ecg w/le ast 12 lds w/i&r Neo Mathew MD Work Phone: Start: 11-19-2023 [facility] Rebekah guerin MD Work Phone: Start: 10-05-2023 Follow-up visit Follow-up NAIF ESTRADA Start: 06-14-2023 Bacteria identified in Urine by Culture Start: 06-14-2023 Blood Culture 1 Start: 06-14-2023 Blood Culture 2 Start: 04-28-2023 Urodynamic studies Patr ayaka URBINA Start: 04-06-2023 Transurethral cystoscopy Jourdan URBINA Start: 07-18-2021 Antibody screen Angel Cotton Comment on above: Order Comment: Comme nt FOR SURGERY 07/19 Result Comment: PERF ORMED BY: [facility] [address] [place] [address] PATHOLOGIST SUPERVISOR [employer] FAVIO CANAS M.D. Start: 02-08-2020 Extracorporeal shock wave lithotripsy of calculus of kidney Jourdangm URBINA Start: 12-14-2019 Extracorporeal shock wave lithotripsy of calculus of kidney Jourdangm URBINA Comment on above: Right side Start: 11-18-2019 Cystoscopy Jourdan ROMERO Start: 08-16-2019 End: 06-08-2024 History of carotid endarterectomy History of right-sided [...] (disorder) Jourdan URBINA Cephalic (qualifier value) P baljit URBINA Extraction of cataract Patienceuriel URBINA Hernia repair Jourdan URBINA History of carotid endarterectomy History of right-sided carotid endarterectomy Kaiser Gómez MD Work Phone: History of carotid endarterectomy History of right-sided carotid endarterectomy Neo Mathew MD Work Phone: Kidney operation Wilder E Cecy Work Phone: Operation on gallbladder Luisito ana E Ball Work Phone: Operative procedure on knee Wilder E Ball Work Phone: Procedure on prostate Benjam in E Ball Work Phone: Surgical procedure o n eye proper Wilder Sam Work Phone: Total colonoscopy Wilder Cheryl Cecy Work Phone: Plan of Treatment Date Care Activity Detail Author Start: 04-14-2025 End: 04-14-2025 Patient encounter procedure 04/14/2025 10:40 AM EST Office Visit [facility] [address] [facility] [address] [place] [phone] Neo Mathew MD [address] [facility] [address] [place] [address] [facility] Start: 01-18-2025 End: 01-18-2025 Clinical Support [facility] Start: 12-19-2024 End: 12-19-2024 Patient encounter procedure [facility] Start: 11-14-2024 Influenza vaccination Influenza Vacc ine (#1) [facility] Start: 10-19-2024 End: 10-19-2024 Clinical Support [facility] Comment on above: Arrived Start: 10-05-2024 End: 10-05-2024 Clinical Support 10/05/2024 3:30 PM EDT Clinical Support [facility] [address] [facility] [address] [place] [phone] Susana Rome, CCC-A [address] [place] [address] [facility] Start: 10-05-2024 End: 10-05-2024 Clinical Support 10/05/2024 11:15 AM EDT Clinical Support [facility] [address] [facility] [address] [place] [address] Susana Rome CCC-A [address] [place] [address] [facility] Start: 09-21-2024 End: 09-21-2024 Patient encounter procedure 09/21/2024 2:00 PM EDT Office Visit [facility] [address] [place] [phone] [facility] Start: 09-12-2024 End: 09-12-2024 Patient encounter procedure [facility] Comment on above: Arrived Start: 08-17-2024 End: 08-17-2024 Clinical Support [facility] Comment on above: Arrived Start: 08-01-2024 End: 08-01-2024 Patient encounter procedure 08/01/2024 9:35 AM EDT Office Visit [facility] [address] [place] [phone] Kraissa Davenport MD [address] [place] [address] [facility] Start: 06-08-2024 End: 06-08-2025 Lipid 1996 panel - Serum or Plasma Lipid Panel Lab Routine Mixed hyperlipidemia Expected: 06/08/2024 (Approximate), Expires: 06/08/2025 [facility] Service Area Work Phone: Comment on above: Expected: 06/08/2024 (Approximate), Expires: 06/08/2025 Start: 05-23-2024 End: 05-23-2024 Patient encounter procedure 05/23/2024 1:00 PM EDT Procedure Visit [facility] [address] [place] [phone] Asia Sexton DPM [address] [place] [address] [facility] Start: 03-14-2024 End: 03-14-2024 Patient encounter procedure 03/14/2024 2:20 PM EST Office Visit [facility] [address] [place] [address] Shayla Tsai NP [address] [place] [address] [facility] [address] [facility] Start: 02-15-2024 End: 02-15-2024 Patient encounter procedure 02/15/2024 9:40 AM EST Office Visit [facility] [address] [facility] [address] [place] [phone] Kaiser Gómez MD [address] [facility] [address] [place] [address] [facility] Start: 02-08-2024 End: 02-08-2024 Patient encounter procedure 02/08/2024 10:45 AM EST Procedure Visit [facility] [address] [facility] [phone] Asia Sexton DPM [address] [place], [place] [phone] [facility] Start: 01-25-2024 End: 01-25-2024 Patient encounter procedure 01/25/2024 11:20 AM EST Office Visit [facility] [address] [place] [address] Shayla Tsai NP [address] [place] [address] [facility] Start: 11-25-2023 End: 11-25-2023 Patient encounter procedure 11/25/2023 9:15 AM EDT Office Visit [facility] [address] [place] [phone] Rebekah Harris MD [address] [place] [address] [facility] Start: 11-15-2023 COVID-19 Vaccine ( season) COVID-19 Vaccine ( season) [facility] Start: 11-15-2023 Influenza vaccination Influenza Vacc ine (#1) [facility] Start: 06-14-2023 Bacteria identified in Urine by Culture Urine Culture [facility] Start: 06-14-2023 Blood Culture 1 Blood Culture 1 [facility] Start: 06-14-2023 Blood Culture 2 Blood Culture 2 [facility] Start: 01-21-2023 FUV, Provider: Kaiser Gómez, Status: Pen, Time: 1:30 PM FUV, Provider: Kaiser Gómez, Status: Pen, Time: 1:[address] [facility] 250 DO Work Phone: Start: 02-11-2022 COVID-19 Vaccine (4 - Pfizer series) COVID-19 Vaccine (4 - Pfizer series) [facility] Start: 01-15-2022 FUV, Provider: Kaiser Gómez, Status: Pen, Time: 3:10 PM FUV, Provider: Kaiser Gómez, Status: Pen, Time: 3:[address] [facility] 250 DO Work Phone: Start: 09-18-2010 RSV High Risk: (Elderly (60+) or Population) (1 - 1-dose 75+ series) RSV High Risk: (Elderly (60+) or Population) (1 - 1-dose 75+ series) [facility] Start: 09-18-1957 DTaP/Tdap/Td Vaccine s (1 - Tdap) DTaP/Tdap/Td Vaccines (1 - Tdap) [facility] Start: 09-18-1953 Diabetes mellitus screening Diabetes Screening [facility] Start: 1935 Lipid panel Lipid Panel [facility] Start: 1935 Medicare Annual Wellness Visit Medicare Annual Wellness Visit (AWV) [facility] Renal function 1999 panel - Serum or Plasma [facility] Renal function 1999 panel - Serum or Plasma [facility] Immunizations Immunization Date Immunization Notes Care Provider Lauryn hagan 02-12-2024 influenza virus vaccine, unspecified formulation KIMBERLI COMBS [facility] 02-12-2024 influenza, high dose seasonal, preservative-free [facility] 12-17-2022 Flu vaccine, quadrivalent, high-dose, preservative free, age 65y+ (FLUZONE) Kaiser Gómez MD Work Phone: [facility] 12-17-2022 influenza virus vaccine, unspecified formulation Jourdan URBINA [facility] 12-17-2022 influenza, high dose seasonal, preservative-free Wilder Cecy Other [employer] Other 12-17-2021 Fluzone High-Dose Quadrivalent 0.7 ML Intramuscular Suspension Prefilled Syringe Wilder Cheryl Sam Work Phone: [facility] 12-17-2021 influenza virus vaccine, unspecified formulation Jourdan URBINA [facility] 12-17-2021 Pfizer COVID-19 Vac Bivalent 30 MCG/0.3ML Intramuscular Suspension Wilder Cheryl Sam Work Phone: [facility] 11-04-2021 Prevnar 20 0.5 ML Intramuscular Suspension Prefilled Syringe Wilder Cheryl Sam Work Phone: [facility] 07-05-2021 Comirnaty 30 MCG/0.3 ML Intramuscular Suspension Wilder Cheryl Cecy Work Phone: [facility] 07-05-2021 SARS-CoV-2 mRNA ([id number]) vaccine Jourdan URBINA [facility] 07-05-2021 SARS-CoV-2, Unspecified Edward Sexton DPM Work Phone: [facility] 03-18-2021 pneumococcal conjuga te vaccine, 13 valent Asia Sexton DPM Work Phone: [facility] 12-17-2020 Pfizer-BioNTech COVID-19 Vacc 30 MCG/0.3ML Intramuscular Suspension Wilder Luna Cecy Work Phone: [facility] 12-05-2020 Fluzone High-Dose Quadrivalent 0.7 ML Intramuscular Suspension Prefilled Syringe Wilder Cheryl Sam Work Phone: [facility] 12-05-2020 influenza virus vaccine, unspecified formulation Jourdan URBINA [facility] 05-06-2020 Pfizer-BioNTech COVID-19 Vacc 30 MCG/0.3ML Intramuscular Suspension Wilder Cheryl Sam Work Phone: [facility] Comment on above: Result Comment: 2021: [id number] 05-05-2020 Pfizer Purple Cap SARS-CoV-2 Kaiser Gómez MD Work Phone: [facility] Work Phone: 04-06-2020 Pfizer-BioNTech COVID-19 Vacc 30 MCG/0.3ML Intramuscular Suspension Wilder Sam Work Phone: [facility] Comment on above: Result Comment: 2021: [id number] 04-05-2020 Pfizer Purple Cap SARS-CoV-2 Kaiser Gómez MD Work Phone: [facility] Work Phone: 01-03-2020 pneumococcal conjuga te vaccine, 13 valent Asia Sexton DPM Work Phone: [facility] 12-16-2019 influenza virus vaccine, unspecified formulation Jourdan URBINA [facility] 12-16-2019 influenza, high dose seasonal, preservative-free Wilder Sam Work Phone: [facility] 12-09-2019 influenza virus vaccine, unspecified formulation Jourdan URBINA [facility] 12-09-2019 influenza, seasonal, injectable Asia Sexton DPM Work Phone: [facility] 11-15-2019 influenza virus vaccine, unspecified formulation Jourdan URBINA [facility] 01-06-2019 zoster vaccine recombinant Kaiser Gómez MD Work Phone: [facility] Work Phone: 12-27-2018 influenza virus vaccine, unspecified formulation Jourdan URBINA [facility] 12-27-2018 influenza, seasonal, injectable Wilder E Ball Work Phone: [facility] 250 DO Work Phone: 12-14-2018 influenza virus vaccine, unspecified formulation Wilder E Ball Work Phone: [facility] 12-14-2018 influenza, seasonal, injectable Asia Sexton DPM Work Phone: [facility] 12-10-2018 influenza, high dose seasonal, preservative-free Kaiser Gómez MD Work Phone: [facility] Work Phone: 12-06-2018 influenza virus vaccine, unspecified formulation Jourdan URBINA [facility] 12-06-2018 influenza, high dose seasonal, preservative-free Wilder E Ball Work Phone: [facility] 250 DO Work Phone: 11-08-2018 zoster vaccine recombinant Wilder E Ball Work Phone: [facility] 250 DO Work Phone: 11-02-2018 zoster vaccine recombinant Asia Sexton DPM Work Phone: [facility] 12-14-2017 influenza virus vaccine, unspecified formulation Wilder E Ball Work Phone: [facility] 250 DO Work Phone: 12-09-2017 influenza virus vaccine, unspecified formulation Jorudan URBINA [facility] 12-09-2017 influenza, injectabl e, quadrivalent, preservative free Kaiser Gómez MD Work Phone: [facility] Work Phone: 12-23-2016 influenza virus vaccine, unspecified formulation Jourdan URBINA [facility] 12-23-2016 influenza, high dose seasonal, preservative-free Wilder E Ball Work Phone: [facility] 250 DO Work Phone: 12-14-2016 influenza virus vaccine, unspecified formulation Wilder E Ball Work Phone: [facility] 250 DO Work Phone: 01-15-2016 influenza virus vaccine, unspecified formulation Wilder E Ball Work Phone: [facility] 250 DO Work Phone: 01-15-2016 pneumococcal conjuga te vaccine, 13 valent Wilder E [employer] Work Phone: [facility] 250 DO Work Phone: 12-26-2015 pneumococcal conjuga te vaccine, 13 valent Kaiser Gómez MD Work Phone: [facility] Work Phone: 01-08-2015 influenza virus vaccine, unspecified formulation Wilder E Ball Work Phone: [facility] 250 DO Work Phone: 12-20-2013 influenza virus vaccine, unspecified formulation Wilder E Ball Work Phone: [facility] 250 DO Work Phone: 10-30-2010 zoster vaccine, live Benjami n E Ball Work Phone: [facility] 250 DO Work Phone: 03-16-2010 pneumococcal polysaccharide vaccine, 23 valent Wilder Sam Work Phone: [facility] 250 DO Work Phone: 03-16-2008 pneumococcal polysaccharide vaccine, 23 valent Wilder Sam Work Phone: [facility] 250 DO Work Phone: pneumococcal Conjuga te, unspecified formulation; Translations: [Need for prophylactic vaccination against Streptococcus pneumoniae (pneumococcus)] Nabil Scott Other [facility] [employer] Other Payers Date Payer Category Payer Medicare 2024 Unknown [id number] 2023 Medicare [id number] 2021 Medicare [id number] 2021 Self-pay 2021 Medicare (Managed Care) 1.2. [id number] 2021 Unknown 2020 Unknown [id number] 2.16.840 .1.153629.19 1959 Medicare [id number] Private Health Insurance [id number] 1935 Unknown [id number] 2.16.840.1.313933.3.579.2.356 1935 Unknown [id number] 2.16.840.1.470729.3.579.2.356 1935 Unknown [id number] 2.16.840.1.830138.3.579.2.593 1935 Unknown [id number] 2.16.840.1.303399.3.579.2.593 1935 Unknown [id number] 2.16.840.1.818176.3.579.2.593 1935 Unknown [id number] 2.16.840.1.697869.3.579.2.593 1935 Unknown [id number] 2.16.840.1.389504.3.579.2.593 1935 Unknown [id number] 2.16840.1.023714.3.579.2.593 1935 Unknown [id number] 2.16840.1.741369.3.579.2.593 1935 Unknown [id number] 2.840.1.123967.3.579.2.1286 1935 Unknown [id number] 2.840.1.418539.3.579.2.1286 1935 Unknown [id number] 2.840.1.391646.3.579.2.1286 1935 Unknown [id number] 2.840.1.885744.3.579.2.727 1935 Unknown [id number] 2.840.1.119186.3.579.2.727 1935 Unknown [id number] 2.840.1.528955.3.579.2.727 1935 Unknown [id number] 2.840.1.613297.3.579.2.727 1935 Unknown [id number] 2.840.1.860529.3.579.2.727 1935 Unknown [id number] 2.16840.1.048753.3.579.2.727 1935 Unknown [id number] 2.840.1.054720.3.579.2.727 1935 Unknown [id number] 2.16840.1.968873.3.579.2.1244 1935 Unknown [id number] 2.16.840.1.008400.3.579.2.72 1935 Unknown [id number] 2.16840.1.618462.3.579.2. 1935 Unknown [id number] 2.16.840.1.233698.3.579.2. 1935 Unknown [id number] 2.16.840.1.702697.3.579.2. 1935 Unknown [id number] 2.840.1.998705.3.579.2. 1935 Unknown [id number] 2.840.1.953232.3.579.2. 1935 Unknown [id number] 2.840.1.620986.3.579.2.1258 1935 Unknown [id number] 2.840.1.400254.3.579.2.1258 1935 Unknown [id number] 2.840.1.446975.3.579.2.1258 1935 Unknown [id number] 2.840.1.212430.3.579.2.1258 1935 Unknown [id number] 2.840.1.474090.3.579.2.1258 1935 Unknown [id number] 2.840.1.368518.3.579.2.1258 1935 Unknown [id number] 2.840.1.628241.3.579.2.125 1935 Unknown [id number] 2.840.1.903087.3.579.2.1258 1935 Unknown [id number] 2.16840.1.354594.3.579.2.125 1935 Unknown [id number] 2.840.1.335124.3.579.2.1259 1935 Unknown [id number] 2.16.840.1.147480.3.579.2.1259 Medicare [id number] 2.16.840.1.572185.19 Medicare Medicare [id number] Unknown [id number] 2.16.840.1.056786.3.579.2.531 Unknown [id number] 2.16.840.1.913782.3.579.2.531 Unknown [id number] 2.16.840.1.418914.3.579.2.531 Unknown Regular Insurance [id number] Social History Date Type Detail Facility Start: 01-26-2023 End: 09-12-2024 No illicit drug use No illicit drug use [facility] 250 DO Work Phone: Comment on above: Twice a week; 1 cup of coffee a da y; Start: 01-26-2023 End: 09-12-2024 Sex Assigned At [facility] Start: 01-26-2023 End: 03-31-2024 Tobacco smoking status NHIS Ex-smoker [facility] Work Phone: History of tobacco use Current smoker [facility] Work Phone: History of tobacco use Cigarette Smoker [facility] Work Phone: Start: 09-23-2022 End: 01-26-2023 Tobacco use and exposure Smokeless tobacco non-user [facility] Work Phone: Start: 01-26-2023 End: 09-12-2024 Alcohol intake Lifetime non-drinker (finding) [facility] Work Phone: Start: 1935 Sex Assigned At Not on file [facility] Work Phone: Start: 01-16-2023 End: 06-08-2024 Exposure to SARS-CoV-2 (event) Not sure [facility] Tobacco smoking status Never [facility] Start: 1935 Sex Assigned At Male [facility] Start: 09-23-2022 [facility] Start: 09-26-2023 Alcohol Comment Caffeine intak e: 1-2 cups per day [facility] Start: 03-31-2024 End: 07-27-2024 Sex Male (finding) [facility] Procedure Code Equipment Code Equipment Origin al Text Equipment Identifier Dates Cystoscopy, with ureteral calculus manipulation and stent placement Polymeric ureteral stent [id number] FDA Start: 11-19-2019 Cystoscopy, with ureteral calculus manipulation and stent placement Polymeric ureteral stent ()[id number] FDA Start: 11-19-2019 Craniotomy Craniofacial fixation plate, non-bioabsorbable ()[id number] FDA Start: 07-19-2021 Craniotomy Craniofacial fixation plate, non-bioabsorbable ()[id number] FDA Start: 07-19-2021 Craniotomy Craniofacial bon e screw, non-bioabsorbable, sterile ()[id number] FDA Start: 07-19-2021 Functional Status Date Assessment Result Facility 05-16-2024 Functional Status N/A [facility] 03-28-2024 Functional Status N/A [facility] 11-17-2023 Functional Status N/A [facility] 05-18-2023 Functional Status N/A [facility] 04-09-2023 Functional Status N/A [facility] 02-16-2023 Functional Status N/A [facility] Clinical Notes 07-14-2021 to 10-19-2024 LENA Rodriguez - 10/19/2024 11:30 AM EDTLENA Rodriguez - 10/05/2024 11:15 AM Kendal Grace MA - 09/21/2024 2:00 PM EDTStesammy Deshaun SextonADALGISA - 09/12/2024 1:00 PM EDT Note Date & Type Note Facility 10-19-2024 History of Present illness Narrative Fitting Remade Right HP Attraction Worker: Pt is here for fitting of remade power right telecine operator. He has been wearing his old aids without pain. New telecine operator fits well and pt indicated he felt no pain. Pt's asked how to clean the aids. I showed her the filter and she said she was not shown the filter and does not know how to change the filter. I told her there should be some filters in the hearing aid box. She does not remember receiving any filters. Removed filter on left telecine operator. When I tried to insert the new filter I had a difficult time getting the new filter off of the stick. I tried several times and so did [employer]. Called [facility] and verified we were using the correct filters (Cerustop 3.0 XL.) Tipple Tender at [facility] will start remake of left telecine operator for pt. NC and pt does not need to return the old telecine operator. Verified right telecine operator filter can be changed without difficulty. Tried explaining what happened to pt and his but there was some confusion. I told them I will call when the left telecine operator is back from [facility]. His current left telecine operator has a wax guard and is functioning properly. I am just having the telecine operator remade so it is easier for pt's to change the filter. Told her pt does not need to come to next appointment unless he wants to come. I will just need the left hearing aid so I can replace the telecine operator. Will show pt's how to change filter at that appointment. Will order filters for the office so I can give pt's a few packages at the next appointment documented in this encounter [facility] 10-05-2024 History of Present illness Narrative Hearing Aid Check: Pt is here for 2 week hearing aid check. He is accompanied by his . Pt's believes pt is hearing but he is not understanding because of processing. Reminded her to get his attention first before speaking and to face him when speaking. Pt has been complaining about the right ear hurting. He cringes when pt's inserts/removes new aid. Hearing Aid: Did observe pt cringe when aid was inserted/removed from his right ear. Asked [employer] and she did not remember pt cringing when aid was put in his ear at the fitting 2 weeks ago. Otoscopic examination performed. No redness in canal observed. There is a small amount of cerumen in the right ear. No cerumen in the left ear. Cerumen removed from right ear under direct otoscopy using a curette without incident. TM intact post cleaning. Pt still cringes when aid is put in the right ear post ear cleaning. Ear impression taken of right ear without incident. Will send telecine operator to [email or web address] for remake. Will keep aid in [facility] office. Near the end of the appointment pt indicated his right ear was hurting even before he was fit with his new hearing aids. Recommend pt see his PCP for the ear pain. Will see pt for fitting of remade custom telecine operator 10-19-24. documented in this encounter [facility] 09-21-2024 History of Present illness Narrative Patient was in today to be fit with Signia Premium 7 CK LI T hearing aids which he obtained using [employer] benefit. Patient is an experienced hearing aid wearer. Patient aids were coupled to a power custom telecine operator. The custom pieces appeared to fit well in the ear and patient did not express discomfort. Patient was unclear on his ability to hear. Stating that the aids were too loud but then saying they were too soft. Patient did appear to hear if speech was presented slowly and clearly. I did try turning the aids up to a power fit and patient felt this made the aids too loud. Patient aids were paired to his daughter's phone and basic features were reviewed. Patient was scheduled for a follow up in several weeks. Cosigned by LENA Rodriguez at 09/22/2024 2:00 PM EDT documented in this encounter [facility] 09-12-2024 History of Present illness Narrative Images from the original note were not included. Subjective Patient ID: Tammi Patel is a 88 y.o. male who presents for Toenail Care (Established patient presents today with his for routine nail care. ). HPI HPI Onychomycosis/Toenail Fungus: presents today requesting nail care. Location: patient indicates that all digits are problematic/symptomatic; deformed, thickened and discolored toenails. Duration: Insidious, chronic condition, years [...] on clothing etc.. Medications Current Outpatient Medications: aspirin 81 MG EC tablet, Take 81 mg by mouth Daily, Disp: , Rfl: atorvastatin (Lipitor) 80 MG tablet, Take 80 mg by mouth Daily, Disp: , Rfl: carbidopa-levodopa (Sinemet) 25-100 MG tablet, TAKE 1 & 1/2 (ONE AND ONE-HALF) TABLETS BY MOUTH FOUR TIMES DAILY, Disp: 540 tablet, Rfl: 1 docusate sodium (Colace) 100 MG capsule, Take 100 mg by mouth in the morning and 100 mg before bedtime., Disp: , Rfl: ergocalciferol (Vitamin D-2) 1.25 MG (76544 UT) capsule, Take 1.25 mg by mouth 1 (one) time per week, Disp: , Rfl: hydroCHLOROthiazide (HYDRODiuril) 12.5 MG tablet, Take 12.5 mg by mouth Daily, Disp: , Rfl: Multiple Vitamins-Minerals (OCUVITE PO), Take by mouth, Disp: , Rfl: nystatin (Mycostatin) 436633 UNIT/GM powder, Apply to armpits twice a day when needed, 30 day supply, Disp: 30 g, Rfl: 11 tamsulosin (Flomax) 0.4 MG 24 hr capsule, Take 0.4 mg by mouth Daily, Disp: , Rfl: amLODIPine (Norvasc) 5 MG tablet, Take by mouth Daily. (Patient not taking: Reported on 09/12/2024), Disp: , Rfl: atorvastatin (Lipitor) 40 MG tablet, Take 40 mg by mouth in the morning. (Patient not taking: Reported on 09/12/2024), Disp: , Rfl: cephalexin (Keflex) 500 MG capsule, Take 1 capsule, by mouth, bid, 10 days (Patient not taking: Reported on 01/25/2024), Disp: 20 capsule, Rfl: 0 ciclopirox (Loprox) 0.77 % cream, Apply to armpits once a day/30 day supply (Patient not taking: Reported on 09/12/2024), Disp: 30 g, Rfl: 11 latanoprost (Xalatan) 0.005 % ophthalmic solution, instill 1 DROP IN BOTH EYES EVERY NIGHT (Patient not taking: Reported on 09/12/2024), Disp: , Rfl: metoprolol succinate XL (Toprol-XL) 25 MG 24 hr tablet, Take by mouth. Do not crush or chew. (Patient not taking: Reported on 09/12/2024), Disp: , Rfl: potassium chloride ER (Micro-K) 10 MEQ ER capsule, Take 10 mEq by mouth in the morning and 10 mEq before bedtime. Do not crush or chew. . (Patient not taking: Reported on 09/12/2024), Disp: , Rfl: psyllium (Metamucil) 58.6 % powder, Take 3 g of fiber by mouth in the morning and 3 g of fiber before bedtime. (Patient not taking: Reported on 09/12/2024), Disp: , Rfl: Allergies Patient has no [...] SURGICAL HISTORY 07/2021 Brain Bleed Sx at [facility] [place] LAP,CHOLECYSTECTOMY 2013 Dr. Louise PROSTATECTOMY TOTAL KNEE [...] 4, 5 bilateral: Varying degrees of toenail dystrophy, thickening, crumbly texture and discoloration. 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 Last audio at this office was in 2022. Pt was also fit with Signia BTEs in 2022 through his [employer] benefit. Pt returned the aids. He currently wears Oticon CK aids with custom power receivers. Otoscopic Exam: Cerumen AU Procedure: Cerumen removed from each ear canal under direct otoscopy using a curette without incident. TM intact post cleaning Pure Tone Audiometry Right Ear: Moderate to profound sensorineural hearing loss Left Ear: Moderate to profound sensorineural hearing loss Speech Audiometry Right SRT = 65 dB and word discrimination score (with visual cues) at 85 dBHL = 84% Left SRT = 70 dB and word discrimination score (with visual cues) at 85 dBHL = 72% Impressions: Pt is good candidate for hearing aids and is eligible for hearing aids through his [employer] benefit Hearing Aid Discussion: Explained to pt and to his that the available BTE option through [employer] has not changed since he tried hearing aids in 2022. I recommend pt try CK aids with custom CK power receivers. Pt and agreed. Pt's wants premium aids for her . Ear impressions taken both ears without incident for custom receivers. Order placed in [employer] portal. Pt scheduled for HAF and 2 week check. documented in this encounter [facility] 06-08-2024 History of Present illness Narrative Chief Complaint Patient presents with Annual Exam Pt here for 1 year follow up for bilateral carotid artery stenosis, pt denies cardiac c/o at this time. Subjective Tammi Patel is a 88 y.o. male HPI Patient is here for follow-up continue management for previous evaluation for palpitation and ventricular arrhythmia. He is a former patient of Dr. Gómez. Reviewing the record indicate in the past he underwent evaluation for palpitation and documentation of ventricular tachyarrhythmia. He underwent EP evaluation with full EP study back in 2015 which was negative and conservative management was recommended. He does have a history of carotid disease, hypertension and hyperlipidemia. He reports stable cardiac status. He reports his main problem is related to difficulty with ambulation due to Parkinson disease. Assessment 1. Previous remote evaluation for ventricular tachyarrhythmia with negative EP study conservative management recommended with no recent documentation of recurrence 2. Hyperlipidemia on treatment but no recent lab available 3. Essential hypertension controlled 4. Parkinson disease 5. History of carotid disease with prior TIA followed routinely by vascular surgery 6. BMI 26 7. Mild chronic kidney disease stage III with creatinine of 1.56 Plan 1. I advised the patient to continue present medical regimen 2. I advised him to repeat his lipid profile 3. I will see him with his in 8 months and follow-up 4. I reviewed his recent lab with him Review of Systems All other systems reviewed and are negative. EKG done in office today Vitals: 06/08/24 1528 BP: 118/60 BP Location: Right arm Patient Position: Sitting Pulse: 91 Weight: 85 kg (187 lb 6.4 oz) Height: 1.778 m (5' 10 ) Objective Physical Exam Constitutional: Appearance: Normal appearance. HENT: Nose: Nose normal. Neck: Vascular: No carotid bruit. Cardiovascular: Rate and Rhythm: Normal rate. Pulses: Normal pulses. Heart sounds: Normal heart sounds. Pulmonary: Effort: Pulmonary effort is normal. Abdominal: General: Bowel sounds are normal. Palpations: Abdomen is soft. Musculoskeletal: General: Normal range of motion. Cervical back: Normal range of motion. Right lower leg: No edema. Left lower leg: No edema. Skin: General: Skin is warm and dry. Neurological: General: No focal deficit present. Mental Status: He is alert. Psychiatric: Mood and Affect: Mood normal. Behavior: Behavior normal. Thought Content: Thought content normal. Judgment: Judgment normal. Allergies Patient has no known allergies. Current Medications Current Outpatient Medications: aspirin 81 mg EC tablet, Take by mouth once daily., Disp: , Rfl: atorvastatin (Lipitor) 80 mg tablet, Take 1 tablet (80 mg) by mouth once daily., Disp: , Rfl: bran/gum/fib/ana/psyl/kelp/pec (FIBER 6 ORAL), Take by mouth., Disp: , Rfl: carbidopa-levodopa (Sinemet) 25-100 mg tablet, Take 1 tablet by mouth 4 times a day., Disp: , Rfl: docusate sodium (COLACE ORAL), Take by mouth., Disp: , Rfl: ergocalciferol (Vitamin D-2) 1.25 MG (26137 UT) capsule, Take 1 capsule (1,250 mcg) [...] once daily., Disp: , Rfl: Assessment/Plan 1. Palpitations 2. Bilateral carotid artery stenosis Follow Up In Cardiology 3. Ventricular tachycardia, paroxysmal (Multi) Follow Up In Cardiology 4. Mixed hyperlipidemia Lipid Panel Lipid Panel 5. History of right-sided carotid endarterectomy 6. Essential hypertension 7. Abnormal EKG ECG 12 Lead 8. TIA (transient ischemic attack) 9. BMI 26.0-26.9,adult Scribe Attestation By signing my name below, Jailene Esteban LPN , Scribe attest that this documentation has been prepared under the direction and in the presence of Neo Mathew MD. Provider Attestation - Scribe documentation All medical record entries made by the Scribe were at my direction and personally dictated by me. I have reviewed the chart and agree that the record accurately reflects my personal performance of the history, physical exam, discussion and plan. documented in this encounter [facility] Work Phone: 06-08-2024 Instructions Jailene Porter LPN - 06/08/2024 3:20 PM EDT Please bring all medicines, vitamins, and herbal supplements with you when you come to the office. Prescriptions will not be filled unless you are compliant with your follow up appointments or have a follow up appointment scheduled as per instruction of your physician. Refills should be requested at the time of your visit. BMI was above normal measurement. Current weight: 85 kg (187 lb 6.4 oz) Weight change since last visit (-) denotes wt loss 1.4 lbs Weight loss needed to achieve BMI 25: 13.5 Lbs Weight loss needed to achieve BMI 30: -21.2 Lbs Provided instructions on dietary changes Provided instructions on exercise. documented in this encounter [facility] Work Phone: 05-23-2024 History of Present illness Narrative Images from the original note were not included. Subjective Patient ID: Tammi Patel is a 88 y.o. male who presents for No chief complaint on file.. HPI HPI Onychomycosis/Toenail Fungus: presents today requesting nail care. Location: patient indicates that all digits are problematic/symptomatic; deformed, thickened and discolored toenails. Duration: Insidious, chronic condition, years [...] the morning., Disp: , Rfl: atorvastatin (Lipitor) 80 MG tablet, Take 80 mg by mouth Daily, Disp: , Rfl: carbidopa-levodopa (Sinemet) 25-100 MG tablet, TAKE 1 & 1/2 (ONE AND ONE-HALF) TABLETS BY MOUTH FOUR TIMES DAILY, Disp: 540 tablet, Rfl: 1 ciclopirox (Loprox) 0.77 % cream, Apply to armpits once a day/30 day supply, Disp: 30 g, Rfl: 11 docusate sodium (Colace) 100 MG capsule, Take 100 mg by mouth in the morning and 100 mg before bedtime., Disp: , Rfl: ergocalciferol (Vitamin D-2) 1.25 MG (27782 UT) capsule, Take 1.25 mg by mouth [...] or chew., Disp: , Rfl: nystatin (Mycostatin) 741759 UNIT/GM powder, Apply to armpits twice a [...] the morning. (Patient not taking: Reported on 05/23/2024), Disp: , Rfl: cephalexin (Keflex) 500 MG capsule, Take 1 capsule, by mouth, bid, 10 days (Patient not taking: Reported on 05/23/2024), Disp: 20 capsule, Rfl: 0 Allergies Patient has no known allergies. Past [...] SURGICAL HISTORY 07/2021 Brain Bleed Sx at [facility] [place] LAP,CHOLECYSTECTOMY 2013 Dr. Louise PROSTATECTOMY TOTAL KNEE [...] Asia Sexton DPM documented in this encounter [facility] 05-23-2024 Instructions Asia Sexton DPM - 05/23/2024 1:00 PM EDT As noted documented in this encounter [facility] 05-16-2024 Hospital Discharge instructions Patient Education 05/16/2024 12:26:58 Kidney Stones, [id number] Kidney Stones Kidney stones are rock-like masses that form inside of the kidneys. Kidneys are organs that make pee (urine). A kidney stone may move into other parts of the urinary tract, including: The tubes that connect the kidneys to the bladder (ureters). The bladder. The tube that carries urine out of the body (urethra). Kidney stones can cause very bad pain and can block the flow of pee. The stone usually leaves your body through your pee. A doctor may need to take out the stone. What are the causes? Kidney stones may be caused by: Too much calcium in the body. This may be caused by too much parathyroid hormone in the blood. Uric acid crystals in the bladder. The body makes uric acid when you eat certain foods. Narrowing of one or both of the ureters. A kidney blockage that you were born with. Past surgery on the kidney or the ureters. What increases the risk? You are more likely to develop this condition if: You have had a kidney stone in the past. Other people in your family have had kidney stones. You do not drink enough water. You eat a diet that is high in protein, salt (sodium), or sugar. You are very overweight (obese). What are the signs or symptoms? Symptoms of a kidney stone may include: Pain in the side of the belly, right below the ribs. Pain usually spreads to the groin. Needing to pee often or right away. Pain when peeing. Blood in your pee. Feeling like you may vomit (nauseous). Vomiting. Fever and chills. How is this treated? Treatment depends on the size, location, and makeup of the kidney stones. The stones will often pass out of the body when you pee. You may need to: Drink more fluid to help pass the stone. ?In some cases, you may be given fluids through an IV tube at the hospital. Take medicine for pain. Change your diet to help keep kidney stones from coming back. Sometimes, you may need: A procedure to break up kidney stones using a beam of light (laser) or shock waves. Surgery to remove the kidney stones. Follow these instructions at home: Medicines Take refp-jvg-cgbcadp and prescription medicines only as told by your doctor. Ask your doctor if the medicine prescribed to you requires you to avoid driving or using machinery. Eating and drinking Drink enough fluid to keep your pee pale yellow. ?You may be told to drink at least 8 10 glasses of water each day. This will help you pass the stone. If told by your doctor, change your diet. You may be told to: ?Limit how much salt you eat. ?Eat more fruits and vegetables. ?Limit how much meat, poultry, fish, and eggs you eat. Follow instructions from your doctor about what you may eat and drink. General instructions Collect pee samples as told by your doctor. You may need to collect a pee sample: ?24 hours after a stone comes out. ?8 12 weeks after a stone comes out, and every 6 12 months after that. Strain your pee every time you pee. Use the strainer that your doctor recommends. Do not throw out the stone. Keep it so that it can be tested by your doctor. Keep all follow-up visits. You may need X-rays and ultrasounds to make sure the stone has come out. How is this prevented? To prevent another kidney stone: Drink enough fluid to keep your pee pale yellow. This is the best way to prevent kidney stones. Eat healthy foods. Avoid certain foods as told by your doctor. You may be told to eat less protein. Stay at a healthy weight. Where to find more information National Kidney Foundation (NKF): kidney.org Urology Care Foundation (UCF): urologyhealth.org Contact a doctor if: You have pain that gets worse or does not get better with medicine. Get help right away if: You have a fever or chills. You get very bad pain. You get new pain in your belly. You faint. You cannot pee. This information is not intended to replace advice given to you by your health care provider. Make sure you discuss any questions you have with your health care provider. Document Revised: 10/24/2022 Document Reviewed: 10/24/2022 [employer] Patient Education 2023 [employer] Follow Up Care 03/03/2024 16:02:01 With:GARRET LORENZ, KIMBERLI Luna, URL Address: [address] [place] [address] When:Within 6 Month(s) [facility] 05-16-2024 Note Patient Education Urology Kidney Stones Kidney stones are rock-like masses that form inside of the kidneys. Kidneys are organs that make pee (urine). A kidney stone may move into other parts of the urinary tract, including: ??? The tubes that connect the kidneys to the bladder (ureters). ??? The bladder. ??? The tube that carries urine out of the body (urethra). Kidney stones can cause very bad pain and can block the flow of pee. The stone usually leaves your body through your pee. A doctor may need to take out the stone. What are the causes? Kidney stones may be caused by: ??? Too much calcium in the body. This may be caused by too much parathyroid hormone in the blood. ??? Uric acid crystals in the bladder. The body makes uric acid when you eat certain foods. ??? Narrowing of one or both of the ureters. ??? A kidney blockage that you were born with. ??? Past surgery on the kidney or the ureters. What increases the risk? You are more likely to develop this condition if: ??? You have had a kidney stone in the past. ??? Other people in your family have had kidney stones. ??? You do not drink enough water. ??? You eat a diet that is high in protein, salt (sodium), or sugar. ??? You are very overweight (obese). What are the signs or symptoms? Symptoms of a kidney stone may include: ??? Pain in the side of the belly, right below the ribs. Pain usually spreads to the groin. ??? Needing to pee often or right away. ??? Pain when peeing. ??? Blood in your pee. ??? Feeling like you may vomit (nauseous). ??? Vomiting. ??? Fever and chills. How is this treated? Treatment depends on the size, location, and makeup of the kidney stones. The stones will often pass out of the body when you pee. You may need to: ??? Drink more fluid to help pass the stone. ? In some cases, you may be given fluids through an IV tube at the hospital. ??? Take medicine for pain. ??? Change your diet to help keep kidney stones from coming back. Sometimes, you may need: ??? A procedure to break up kidney stones using a beam of light (laser) or shock waves. ??? Surgery to remove the kidney stones. Follow these instructions at home: Medicines ??? Take gjcm-idv-ynqwedu and prescription medicines only as told by your doctor. ??? Ask your doctor if the medicine prescribed to you requires you to avoid driving or using machinery. Eating and drinking ??? Drink enough fluid to keep your pee pale yellow. ? You may be told to drink at least 8?10 glasses of water each day. This will help you pass the stone. ??? If told by your doctor, change your diet. You may be told to: ? Limit how much salt you eat. ? Eat more fruits and vegetables. ? Limit how much meat, poultry, fish, and eggs you eat. ??? Follow instructions from your doctor about what you may eat and drink. General instructions ??? Collect pee samples as told by your doctor. You may need to collect a pee sample: ? 24 hours after a stone comes out. ? 8?12 weeks after a stone comes out, and every 6?12 months after that. ??? Strain your pee every time you pee. Use the strainer that your doctor recommends. ??? Do not throw out the stone. Keep it so that it can be tested by your doctor. ??? Keep all follow-up visits. You may need X-rays and ultrasounds to make sure the stone has come out. How is this prevented? To prevent another kidney stone: ??? Drink enough fluid to keep your pee pale yellow. This is the best way to prevent kidney stones. ??? Eat healthy foods. ??? Avoid certain foods as told by your doctor. You may be told to eat less protein. ??? Stay at a healthy weight. Where to find more information ??? National Kidney Foundation (NKF): kidney.org ??? Urology Care Foundation (UCF): urologyhealth.org Contact a doctor if: ??? You have pain that gets worse or does not get better with medicine. Get help right away if: ??? You have a fever or chills. ??? You get very bad pain. ??? You get new pain in your belly. ??? You faint. ??? You cannot pee. This information is not intended to replace advice given to you by your health care provider. Make sure you discuss any questions you have with your health care provider. Document Revised: 10/24/2022 Document Reviewed: 10/24/2022 Elsevier Patient Education ? 2023 [employer]. [facility] 03-28-2024 Hospital Discharge instructions Patient Education 03/28/2024 16:38:10 Kidney Stones, Gdyi-ps-Zppg Kidney Stones Kidney stones are rock-like masses that form inside of the kidneys. Kidneys are organs that make pee (urine). A kidney stone may move into other parts of the urinary tract, including: The tubes that connect the kidneys to the bladder (ureters). The bladder. The tube that carries urine out of the body (urethra). Kidney stones can cause very bad pain and can block the flow of pee. The stone usually leaves your body through your pee. A doctor may need to take out the stone. What are the causes? Kidney stones may be caused by: Too much calcium in the body. This may be caused by too much parathyroid hormone in the blood. Uric acid crystals in the bladder. The body makes uric acid when you eat certain foods. Narrowing of one or both of the ureters. A kidney blockage that you were born with. Past surgery on the kidney or the ureters. What increases the risk? You are more likely to develop this condition if: You have had a kidney stone in the past. Other people in your family have had kidney stones. You do not drink enough water. You eat a diet that is high in protein, salt (sodium), or sugar. You are very overweight (obese). What are the signs or symptoms? Symptoms of a kidney stone may include: Pain in the side of the belly, right below the ribs. Pain usually spreads to the groin. Needing to pee often or right away. Pain when peeing. Blood in your pee. Feeling like you may vomit (nauseous). Vomiting. Fever and chills. How is this treated? Treatment depends on the size, location, and makeup of the kidney stones. The stones will often pass out of the body when you pee. You may need to: Drink more fluid to help pass the stone. ?In some cases, you may be given fluids through an IV tube at the hospital. Take medicine for pain. Change your diet to help keep kidney stones from coming back. Sometimes, you may need: A procedure to break up kidney stones using a beam of light (laser) or shock waves. Surgery to remove the kidney stones. Follow these instructions at home: Medicines Take ztbf-pwv-vkgibxv and prescription medicines only as told by your doctor. Ask your doctor if the medicine prescribed to you requires you to avoid driving or using machinery. Eating and drinking Drink enough fluid to keep your pee pale yellow. ?You may be told to drink at least 8 10 glasses of water each day. This will help you pass the stone. If told by your doctor, change your diet. You may be told to: ?Limit how much salt you eat. ?Eat more fruits and vegetables. ?Limit how much meat, poultry, fish, and eggs you eat. Follow instructions from your doctor about what you may eat and drink. General instructions Collect pee samples as told by your doctor. You may need to collect a pee sample: ?24 hours after a stone comes out. ?8 12 weeks after a stone comes out, and every 6 12 months after that. Strain your pee every time you pee. Use the strainer that your doctor recommends. Do not throw out the stone. Keep it so that it can be tested by your doctor. Keep all follow-up visits. You may need X-rays and ultrasounds to make sure the stone has come out. How is this prevented? To prevent another kidney stone: Drink enough fluid to keep your pee pale yellow. This is the best way to prevent kidney stones. Eat healthy foods. Avoid certain foods as told by your doctor. You may be told to eat less protein. Stay at a healthy weight. Where to find more information National Kidney Foundation (NKF): kidney.org Urology Care Foundation (UCF): urologyhealth.org Contact a doctor if: You have pain that gets worse or does not get better with medicine. Get help right away if: You have a fever or chills. You get very bad pain. You get new pain in your belly. You faint. You cannot pee. This information is not intended to replace advice given to you by your health care provider. Make sure you discuss any questions you have with your health care provider. Document Revised: 10/24/2022 Document Reviewed: 10/24/2022 [employer] Patient Education 2023 VSS Monitoring. Follow Up Care 03/25/2024 13:50:22 With:GARRET LORENZ, KIMBERLI Luna, URL Address: [place] [address] Business (1) When:6 weeks [facility] [employer] 03-28-2024 Note Patient Education Urology Kidney Stones Kidney stones are rock-like masses that form inside of the kidneys. Kidneys are organs that make pee (urine). A kidney stone may move into other parts of the urinary tract, including: ??? The tubes that connect the kidneys to the bladder (ureters). ??? The bladder. ??? The tube that carries urine out of the body (urethra). Kidney stones can cause very bad pain and can block the flow of pee. The stone usually leaves your body through your pee. A doctor may need to take out the stone. What are the causes? Kidney stones may be caused by: ??? Too much calcium in the body. This may be caused by too much parathyroid hormone in the blood. ??? Uric acid crystals in the bladder. The body makes uric acid when you eat certain foods. ??? Narrowing of one or both of the ureters. ??? A kidney blockage that you were born with. ??? Past surgery on the kidney or the ureters. What increases the risk? You are more likely to develop this condition if: ??? You have had a kidney stone in the past. ??? Other people in your family have had kidney stones. ??? You do not drink enough water. ??? You eat a diet that is high in protein, salt (sodium), or sugar. ??? You are very overweight (obese). What are the signs or symptoms? Symptoms of a kidney stone may include: ??? Pain in the side of the belly, right below the ribs. Pain usually spreads to the groin. ??? Needing to pee often or right away. ??? Pain when peeing. ??? Blood in your pee. ??? Feeling like you may vomit (nauseous). ??? Vomiting. ??? Fever and chills. How is this treated? Treatment depends on the size, location, and makeup of the kidney stones. The stones will often pass out of the body when you pee. You may need to: ??? Drink more fluid to help pass the stone. ? In some cases, you may be given fluids through an IV tube at the hospital. ??? Take medicine for pain. ??? Change your diet to help keep kidney stones from coming back. Sometimes, you may need: ??? A procedure to break up kidney stones using a beam of light (laser) or shock waves. ??? Surgery to remove the kidney stones. Follow these instructions at home: Medicines ??? Take huuu-wvs-azwppsl and prescription medicines only as told by your doctor. ??? Ask your doctor if the medicine prescribed to you requires you to avoid driving or using machinery. Eating and drinking ??? Drink enough fluid to keep your pee pale yellow. ? You may be told to drink at least 8?10 glasses of water each day. This will help you pass the stone. ??? If told by your doctor, change your diet. You may be told to: ? Limit how much salt you eat. ? Eat more fruits and vegetables. ? Limit how much meat, poultry, fish, and eggs you eat. ??? Follow instructions from your doctor about what you may eat and drink. General instructions ??? Collect pee samples as told by your doctor. You may need to collect a pee sample: ? 24 hours after a stone comes out. ? 8?12 weeks after a stone comes out, and every 6?12 months after that. ??? Strain your pee every time you pee. Use the strainer that your doctor recommends. ??? Do not throw out the stone. Keep it so that it can be tested by your doctor. ??? Keep all follow-up visits. You may need X-rays and ultrasounds to make sure the stone has come out. How is this prevented? To prevent another kidney stone: ??? Drink enough fluid to keep your pee pale yellow. This is the best way to prevent kidney stones. ??? Eat healthy foods. ??? Avoid certain foods as told by your doctor. You may be told to eat less protein. ??? Stay at a healthy weight. Where to find more information ??? National Kidney Foundation (NKF): kidney.org ??? Urology Care Foundation (UCF): urologyhealth.org Contact a doctor if: ??? You have pain that gets worse or does not get better with medicine. Get help right away if: ??? You have a fever or chills. ??? You get very bad pain. ??? You get new pain in your belly. ??? You faint. ??? You cannot pee. This information is not intended to replace advice given to you by your health care provider. Make sure you discuss any questions you have with your health care provider. Document Revised: 10/24/2022 Document Reviewed: 10/24/2022 Elsevier Patient Education ? 2023 [employer] [facility] 02-12-2024 Evaluation note Diagnosis Onset Date Resolution Benign prostatic hyperplasia with lower urinary tract symptoms acute February 12, 2024 9:29am Carotid stenosis acute February 12, 2024 9:29am Cerebral atherosclerosis acute February 12, 2024 9:29am Chronic kidney disease acute No vember 2023 9:29am Essential (primary) hypertension acute February 12, 2024 9:29am Medicare annual wellness visit, subsequent acute February 12, 2024 9:29am Parkinsons disease acute Novemb er 2023 9:29am Peripheral artery disease acute February 12, 2024 9:29am Thrombocytopenia acute February 12, 2024 9:29am Benign prostatic hyperplasia with lower urinary tract symptoms acute March 14, 2024 8:51am Chronic kidney disease acute De cem2023 8:51am Essential (primary) hypertension acute March 14, 2024 8:51am MCI (mild cognitive impairment) acute March 14, 2024 8:51am Parkinsons disease acute Decemb er 2023 8:51am Thrombocytopenia acute March 14, 2024 8:51am Anemia of renal disease acute J anuary 2024 10:58am CKD (chronic kidney disease) stage 3, GFR 30-59 ml/min acute March 31, 2024 10:58am Hyperuricemia acute March 10:58am Secondary hyperparathyroidism acute March 10:58[facility] Work Phone: 1(490) 919-930011-25-2024 History of Present illness Narrative* Asia Sexton, ADALGISA - 02/08/2024 10:45 AM EST Images from the original note were not [...] , Rfl: ergocalciferol (Vitamin D-2) 1.25 MG (20588 UT) capsule, Take 1.25 mg by mouth 1 (one) time per week., Disp: , Rfl: hydroCHLOROthiazide (HYDRODiuril) 12.5 MG tablet, Take 12.5 mg by mouth in the morning., Disp: , Rfl: latanoprost (Xalatan) 0.005 % ophthalmic solution, instill 1 DROP IN BOTH EYES EVERY NIGHT, Disp: ,Rfl: metoprolol succinate XL (Toprol-XL) 25 MG 24 hr tablet, Take by mouth. Do not crush or chew., Disp:, Rfl: nystatin (Mycostatin) 491571 UNIT/GM powder, Apply to armpits twice a [...] SURGICAL HISTORY 07/2021 Brain Bleed Sx at [facility] [place] LAP,CHOLECYSTECTOMY 2014 Dr. Louise PROSTATECTOMY TOTAL KNEE [...] understanding. Asia Sexton DPM documented in this [facility]11-25-2024 Instructions* Patient Instructions* Asia Sexton DPM - 02/08/2024 10:45 AM EST As noted documented in this [facility]11-11-2024 History of Present illness Narrative* Shayla Tsai NP - 01/25/2024 11:20 AM EST Images from the original note were not [...] any wearing off type symptoms. states that onoccasion the patient seems to have difficulty initiating walking. She admits to some late and missed doses of his Sinemet, unsure if this correlates. She reports that his walking is slower. Denies any falls. states his memory is on a steady decline since last visit, denies significant changes.States he does require some help with dressing. 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 Louise PROSTATECTOMY TOTAL KNEE [...] , wrist extensors , wrist flexor , administrative sales assistant strength 5/5. LUE Strength deltoid , biceps , triceps , wrist extensors , wrist flexor , administrative sales assistant strength 5/5. RLE Strength illopsoas, quadriceps, tibialis [...] knee reflex 3+. Flores's Sign negative. Coordination: Rngrvs-we-asig testing is normal Gait: Uses cane, narrow based shuffling gait with somewhat stooped posture. Review and summary of old records: CT head wo contrasts at [facility] on 03/26/2022: no acute intracranial hemorrhage or evidence of a no intracranial hemorrhage. Small area of encephalomalacia changes with posterior superior right parietal lobe; likely sequela of remote small ischemic infarction. Age consistent atrophy and chronic small vessel ischemic changes. CT head wo contrast at [facility] on 07/15/21: There is a left subacute appearing subdural hematoma over the left frontal convexity with a hematoma component layering dependently. This measures 1.5 cm in thickness and contributes to 5mm rightward shift of the midline structures. Chronic age related changes. X-ray of the lumbar spine at [facility] on 08/24/17: Scoliosis with mild degenerative changes [...] cognitive impairment and MOCA in 2020 was with 2/5 recall. Ongoing consideration that his [...] sleep hygiene, brain stimulating activity and compensatory memorytechniques Cognitive impairment Cognitive impairment likely Parkinsons related [...] stroke and advised to seek emergent evaluation inthe ED should any such s/s develop. The patient/ verbalized understanding. Carotid artery disease, unspecified laterality, unspecified type (CMS/HCC) Patient with a history of carotid disease and is status post surgical intervention; doing well. PLAN: - See above. Follow up in 1-2 months or sooner if symptoms worsen, fail to improve, or should a new neurologicalconcern arise. Pt has been fully educated on their diagnosis, treatment options, follow up plan, and return instructions documented in this encounterWestern [facility] [id number] History of Present illness Narrative* Rebekah Harris MD - 11/25/2023 9:15 AM EDT Images from the original note were not included. Mohs Surgery Location: Nasal tip Date of biopsy: 09/15/2023 Diagnosis: Basal Cell Carcinoma All pertinent medical history, medications, and allergies were reviewed. General Exam: alert , oriented to person, place, and time , normal affect, well appearing uses a cane Accompaniedby daughter (Genoveva) A focused exam completed based on patient reported problems, see below: 1. 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 Mohs surgery Consent obtained: written (The rationale for Mohs as well as the risks, benefits, and alternatives.The risks of infection, scarring, bleeding, prolonged wound healing, incomplete removal, allergy toanesthesia or meds, nerve injury, and recurrence were addressed.) [place] Protocol: Procedure explained and questions answered to [...] sodium bicarbonate Procedure Details: Biopsy accession number: [id number] Biopsy lab: [facility] Date of biopsy: 09/15/2023 Frozen section biopsy [...] lab where it was chromacoded and processed. Mohssections were prepared with serial tissue sections, stained, [...] dressing placed as in Stage 1. The patientwas escorted to the waiting area. As with [...] as made, and instructions were given to follow- up sooner if necessary. Related Medications cephalexin (Keflex) 500 MG capsule Take 1 capsule, by mouth, bid, 10 days Next visit: 08/01/2024 documented in this encounterWestern [facility] Health [id number] Hospital Discharge instructions Patient Education 11/17/2023 13:33:27 [...] about 300 mg of calcium at each meal.Foods that contain 200 500 mg of calcium a serving include: ?8 oz (237 mL) of milk, vccknok-kswyyibwvewh-qilfz milk, and calcium- fortifiedfruit juice. Calcium-fortified means that calcium has been [...] the table and allow each person to addtheir own salt to taste. Use vegetable protein, such as beans, textured vegetable protein (TVP), or tofu, instead of meat inpasta, casseroles, and soups. Meal planning Eat less salt, if told by your dietitian. To do this: ?Avoid eating processed or pre-made food. ?Avoid eating fast food. Eat less animal protein, including cheese, meat, poultry, or fish, if told by your dietitian. To dothis: ?Limit the number of times you have meat, poultry, fish, or cheese each week. Eat a diet free of meat at least 2 days a week. ?Eat only one serving each day of meat, poultry, fish, or seafood. ?When you prepare animal proteins, cut pieces into small portion sizes. For most meat and fish, oneserving is about the size of the palm [...] ?Spinach (cooked), rhubarb, beets, sweet potatoes, and Libyan chard. ?Peanuts. ?Potato chips, belizean fries, and baked potatoes with skin on. ?Nuts and nut products. ?Chocolate. If you regularly take a diuretic medicine, make sure to eat at least 1 or 2 servings of fruits or vegetables that are high in potassium each day. These include: ?Avocado. ?Banana. ?[place], prune, carrot, or tomato juice. ?Baked potato. [...] magnesium, fish oil, or vitamin B6. Take lpjs-ptf-lwkaitj and prescription medicines only as told by [...] Casseroles. Pizza. Lasagna. Frozen meals. Potato chips. Comoran fries. The items listed above may not be a complete list of foods and beverages you should limit. Contact a dietitian for more information. What foods should I avoid? Talk to your dietitian about specific foods you should avoid based on the type of kidney stones youhave and your overall health. Fruits Grapefruit. The item listed above may not be a complete list of foods and beverages you should avoid. Contact adietitian for more information. Summary Kidney stones are [...] provider. Document Revised: 06/12/2022 Document Reviewed: 06/12/2022 [employer]Position[employer] Patient Education 2023 VSS Monitoring. 11/17/2023 13:33:26 Hematuria, Adult Hematuria, Adult Hematuria is blood in the urine. Blood may be visible in the urine, or it may be identified with a test. This condition can be caused by infections of the bladder, urethra, kidney, or prostate. Otherpossible causes include: Kidney stones. Cancer of the [...] blood in your urine, even if it ispainless or the blood stops without treatment. Blood in the urine, when it happens and then stops and then happens again, can be a symptom of a very serious condition, including cancer. There is no pain in the initial stages of many urinary cancers. Follow these instructions at home: Medicines Take jtya-pyk-pdbmlxz and prescription medicines only as told by your health care provider. If you were prescribed an antibiotic medicine, take it as told by your health care provider. Do notstop taking the antibiotic even if you start to feel better. Eating and drinking Drink enough fluid to keep your urine pale yellow. It is recommended that you drink 3 4 quarts (2.83.8 L) a day. If you have been diagnosed with an infection, drinking cranberry juice in addition tolarge amounts of water is recommended. Avoid caffeine, [...] about any blood in your urine, even ifit is painless or the blood stops without treatment. Take wrbe-qbq-qkzazzs and prescription medicines only as told by your health care provider. Drink enough fluid to keep your urine pale yellow. This information is not intended to replace advice given to you by your health care provider. Make sure you discuss any questions you have with your health care provider. Document Revised: 10/31/2020 Document Reviewed: 10/31/2020 [employer]Positioning Patient Education 2023 VSS Monitoring. Follow Up Care 10/29/2023 15:35:09 With:CONNOR Joel APRN, Priti Daniels, ALOK, URL Address: When: Unknown Comments:6 months with PVR [facility] 09-03-2024 Evaluation + Plan note Diagnostic Tests Pending * Urine Culture 11/17/23 [facility] 09-03-2024 NotePatient Education Nephrology Dietary Guidelines to Help Prevent [...] ? 8 oz (237 mL) of milk, lzgyqjl-krjbctkozhye-cjchf milk, and calcium- fortifiedfruit juice. Calcium-fortified means that calcium has been [...] Spinach (cooked), rhubarb, beets, sweet potatoes, and Libyan chard. ? Peanuts. ? Potato chips, belizean fries, and baked potatoes with skin on. ? Nuts and nut products. ? Chocolate. ? If you regularly take a diuretic medicine, make sure to eat at least 1 or 2 servings of fruits orvegetables that are high in potassium each day. These include: ? Avocado. ? Banana. ? [place], prune, carrot, or tomato juice. ? Baked [...] with your dietitian to find an eating planand weight loss strategies that work best for you. General information ? Talk to your health care provider and dietitian about taking daily supplements. Depending on yourhealth and the cause of your kidney stones, you may be told: ? Do not take high-dose supplements of vitamin C (1,000 mg a day or more). ? To take a calcium supplement. ? To take a daily probiotic supplement. ? To take other supplements such as magnesium, fish oil, or vitamin B6. ? Take rfpb-jic-ystchmo and prescription medicines only as told by your health care provider. Theseinclude suppleme (more content not included)...[facility]08-26-2024 History of Present illness Narrative* Asia Sexton, ADALGISA - 11/09/2023 10:45 AM EDT Images from the original note were not [...] , Rfl: ergocalciferol (Vitamin D-2) 1.25 MG (62434 UT) capsule, Take 1.25 mg by mouth 1 (one) time per week., Disp: , Rfl: hydroCHLOROthiazide (HYDRODiuril) 12.5 MG tablet, Take 12.5 mg by mouth in the morning., Disp: , Rfl: latanoprost (Xalatan) 0.005 % ophthalmic solution, instill 1 DROP IN BOTH EYES EVERY NIGHT, Disp: ,Rfl: metoprolol succinate XL (Toprol-XL) 25 MG 24 hr tablet, Take by mouth. Do not crush or chew., Disp:, Rfl: nystatin (Mycostatin) 899932 UNIT/GM powder, Apply to armpits twice a [...] SURGICAL HISTORY 07/2021 Brain Bleed Sx at [place] LAP,CHOLECYSTECTOMY 2014 Dr. Louise PROSTATECTOMY TOTAL KNEE [...] understanding. Asia Sexton DPM documented in this [facility]08-26-2024 Instructions* Patient Instructions* Asia Sexton DPM - 11/09/2023 10:45 AM EDT As noted documented in this [facility]03-04-2024 Hospital Discharge instructions Patient Education 05/18/2023 11:01:28 Benign Prostatic Hyperplasia Benign Prostatic Hyperplasia Benign prostatic hyperplasia (BPH) is an enlarged prostate gland that is caused by the normal agingprocess. The prostate may get bigger as a man gets older. The condition is not caused by cancer. The prostate is a walnut-sized gland that is involved in the production of semen. It is located in front of the rectum and below the bladder. The bladder stores urine. The urethra carries stored urine ou t of the body. An enlarged prostate can press on the urethra. This can make it harder to pass urine. The buildup of urine in the bladder can cause infection. Back pressure and infection may progress to bladder damage and kidney (renal) failure. What are the causes? This condition is part of the normal aging process. However, not all men develop problems from thiscondition. If the prostate enlarges away from the [...] urethra. Follow these instructions at home: Take gmtf-qiy-ukyxpie and prescription medicines only as told by [...] provider. Document Revised: 09/18/2021 Document Reviewed: 09/18/2021 [employer]Position[employer] Patient Education 2022 VSS Monitoring. Follow Up Care 05/01/2023 14:20:13 With:CIARA SALAZAR, Jourdan Anderson, URL Address: [facility] [address] , [place] [address]- [phone] When:Within 6 Month(s) Comments:6 mo fu with PVR scan [facility] [place] 02-16-2024 Note [id number]#1.00[facility] 04-28-2023 [id number]#1.00[facility]01-15-2024 Evaluation note* Encounter Date Diagnosis Assessment Notes Treatment Notes Treatment Clinical Notes Mar, Primary hypertension (ICD-10 - I10) [facility] Other 01-03-2024 Evaluation note* Encounter Date Diagnosis Assessment Notes Treatment Notes Treatment Clinical Notes Mar, Vitamin D deficiency (ICD-10 - E55.9) [facility] Other 12-04-2023 Hospital Discharge instructions Patient Education [...] including vitamins, herbs, eye drops, creams, and nomf-qzl-ijwjnca medicines. Any problems you or family members [...] provider tells you to take them. Taking xosj-avm-pummmjt medicines, vitamins, herbs, and supplements. Tests You [...] Follow these instructions at home: Medicines Take bnvt-edy-xugdiku and prescription medicines only as told by [...] provider. Document Revised: 11/13/2021 Document Reviewed: 10/12/2020 [employer]Position[employer] Patient Education 2022 VSS Monitoring. Follow Up Care 01/15/2022 10:12:17 With:CIARA SALAZAR, Jourdan Anderson, MEGANL Address: [facility] [address] , [place] [address] [phone] When: Unknown [facility] [place] 11-30-2023 Evaluation note* Encounter Date Diagnosis Assessment Notes [...] treatment in ER COntinue secondary preventive measures. [facility] Other 11-13-2023 History of Present illness Narrative* [...] carotid disease. He continues to travel to [place] annually to be evaluated by the vascular [...] , Rfl: ergocalciferol (Vitamin D-2) 1.25 MG (08094 UT) capsule, Take 1 capsule (1,250 mcg) [...] stenosis Followed by his vascular surgeon [facility] [place] [facility] [phone]) 874-985411-13-2023 Instructions* Patient Instructions* Gentry Corona MA - [...] time of your visit. documented in this [facility] Work Phone: 1(870) 804-598108-31-2023 Evaluation note* Encounter Date Diagnosis Assessment Notes [...] Continue oral vitamin D every 2 weeks. [facility] Other 06-27-2023 Evaluation note* Encounter Date Diagnosis Assessment Notes Treatment Notes Treatment Clinical Notes Aug, Stage 3a chronic kidney disease (ICD-10 - N18.31) [facility] Other 02-14-2023 Evaluation note* Encounter Date Diagnosis Assessment Notes Treatment Notes Treatment Clinical Notes Apr, Elevated cholesterol (ICD-10 - E78.00) [facility] Other 02-02-2023 Evaluation note* Encounter Date Diagnosis [...] Change oral vitamin D every 2 weeks. [facility] Other 12-27-2022 Evaluation note* Encounter Date Diagnosis Assessment Notes Treatment Notes Treatment Clinical Notes Feb, Vitamin D deficiency (ICD-10 - E55.9) [facility] Other 07-07-2022 Evaluation note* Encounter Date Diagnosis [...] Change oral vitamin D every 2 weeks. [facility] Other 07-07-2022 Evaluation note* Encounter Date Diagnosis Assessment Notes Treatment Notes Treatment Clinical Notes Sep, Vitamin D deficiency (ICD-10 - E55.9) [facility] Other 05-16-2022 Evaluation note* Encounter Date Diagnosis Assessment Notes Treatment Notes Treatment Clinical Notes July, Subacute subdural hematoma (ICD-10 - S06.5X9A) The patient will increase his activities as tolerated and we will see him back in about 3 weeks, when he is about a month out from surgery for a repeat CT scan without contrast. [facility] Other 05-01-2022 History general Narrative - Reported* [...] 12/2018 Surgical History BRAIN BLEED SURGERY IN [facility] 07/2021 Hospitalization History See past surgical hx Hospitalization History KIDNEY STONES [facility] Other Evaluation + Plan note No data available for this section [facility] [employer] evaluation + Plan note Future Appointments Appointment Date:04/28/2023 11:00:00 AM Scheduled Provider: Location:[facility] Appointment Type:Urology FT [facility] Evaluation + Plan note Future Appointments Appointment Date:11/23/2023 10:30:00 AM Scheduled Provider:Jourdan URBINA MD Location:[facility] Appointment Type:URO Office Visit [facility] evaluation + Plan note Future Appointments Appointment Date:03/29/2024 09:30:00 AM Scheduled Provider: Location:[facility] Appointment Type:URO Nurse Visit Appointment Date:05/16/2024 11:40:00 AM Scheduled Provider:KIMBERLI COMBS PA-C Location:[facility] [place] Appointment Type:URO Office Visit [facility] evaluation + Plan note Future Appointments Appointment Date:05/16/2024 11:40:00 AM Scheduled Provider:KIMBERLI COMBS PA-C Location:[facility] Appointment Type:URO Office Visit [facility] evaluation + Plan note Future Appointments Appointment Date:11/21/2024 11:40:00 AM Scheduled Provider:KIMBERLI COMBS PA-C Location:[facility] Appointment Type:URO Office Visit [facility] evaluation noteNo [facility] [employer] Other Evaluation note* Diagnosis Mixed hyperlipidemia- Primary Ventricular tachycardia, paroxysmal (CMS/HCC) TIA (transient ischemic attack) Unspecified transient cerebral ischemia History of right-sided carotid endarterectomy Essential hypertension Unspecified essential hypertension Bilateral carotid artery stenosis Occlusion and stenosis of carotid artery without mention of cerebral infarction documented in [facility] Work Phone: Evaluation note* Diagnosis Onset Date Resolution Status CKD (chronic kidney disease) stage 3, GFR 30-59 ml/min acute [id number] acute Hyperuricemia acute Secondary hyperparathyroidism acute Thrombocytopenia acute Urinary retention due to benign prostatic hyperplasia acute [facility] Work Phone: Evaluation note* Diagnosis Onset Date Resolution Status Hyperuricemia acute Secondary hyperparathyroidism acute Urinary retention due to luisito ign prostatic hyperplasia acute Benign prostatic hyperplasia with lower urinary tract symptoms acute Chronic kidney disease acute Essential (primary) hypertension acute Indwelling Dias catheter present noneactive Gross hematuria noneactive [facility] Work Phone: Evaluation note* Diagnosis Onset Date Resolution Status Hyperuricemia acute Secondary hyperparathyroidism acute Chronic kidney disease acute Essential (primary) hypertension acute Indwelling Dias catheter present noneactive Gross hematuria noneactive Benign prostatic hyperplasia with lower urinary tract symptoms acute Chronic kidney disease acute Essential (primary) hypertension acute Thrombocytopenia acute Epididymo-orchitis, acute no neactive [facility] Work Phone: Evaluation note* Diagnosis Onset Date Resolution Status Benign prostatic hyperplasia with lower urinary tract symptoms acute Chronic kidney disease acute Essential (primary) hypertension acute Thrombocytopenia acute Epididymo-orchitis, acute no neactive [facility] Work Phone: Evaluation note* Diagnosis Onset Date Resolution Status Benign prostatic hyperplasia with lower urinary tract symptoms acute Carotid stenosis acute Cerebral atherosclerosis acu te Chronic kidney disease acute Essential (primary) hypertension acute Peripheral artery disease ac [place] Thrombocytopenia acute [facility] Work Phone: Evaluation note* Diagnosis Onset Date Resolution Status Benign prostatic hyperplasia with lower urinary tract symptoms acute Carotid stenosis acute Cerebral atherosclerosis acu te Chronic kidney disease acute Essential (primary) hypertension acute Peripheral artery disease ac [place] Thrombocytopenia acute Chronic kidney disease acute COVID acute Essential (primary) hypertension acute [facility] Work Phone: Evaluation note* Diagnosis Parkinson's disease without dyskinesia, unspecified whether manifestations fluctuate (CMS/HCC)- Primary Cognitive impairment Unspecified persistent mental disorders due to conditions classified elsewhere Cerebrovascular accident (CVA), unspecified mechanism (CMS/HCC) Carotid artery disease, unspecified laterality, unspecified type (CMS/[facility]) documented in this encounter [facility] HealthcareEvaluation note* Diagnosis Dermatophytosis of nail- Primary Dystrophic nail Other specified disease of nail Pain around toenail, right foot Pain around toenail, left foot documented in this encounter [facility] HealthcareEvaluation note* Diagnosis Dermatophytosis of nail- Primary Dystrophic nail Other specified disease of nail Pain around toenail, right foot Pain around toenail, left foot documented in this encounter [facility] HealthcareEvaluation note* Diagnosis 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 documented in this encounter [facility] HealthcareEvaluation note* Diagnosis Dermatophytosis of nail- Primary Dystrophic nail Other specified disease of nail Pain around toenail, right foot Pain around toenail, left foot documented in this encounter [facility] HealthcareEvaluation note* Diagnosis Ventricular tachycardia, paroxysmal (Multi)- Primary Bilateral carotid artery stenosis Occlusion and stenosis of carotid artery without mention of cerebral infarction Palpitations Mixed hyperlipidemia History of right-sided carotid endarterectomy Essential hypertension Unspecified essential hypertension Abnormal EKG Nonspecific abnormal electrocardiogram (ECG) (EKG) TIA (transient ischemic attack) Unspecified transient cerebral ischemia BMI 26.0-26.9,adult documented in this encounter [facility] Work Phone: Evaluation note* Diagnosis Onset Date Resolution Status Admit Date Benign prostatic hyperplasia with lower urinary tract symptoms acute July 27, 2024 9:54am Carotid stenosis acute July 9:54am Cerebral atherosclerosis acute July 27, 2024 9:54am Chronic kidney disease acute 2024 9:54am Essential (primary) hypertension acu te July 27, 2024 9:54am Parkinsons disease acute July 272024 9:54am Peripheral artery disease acute July 27, 2024 9:54am Thrombocytopenia acute July 9:54am [facility] Work Phone: Evaluation note* Diagnosis Sensorineural hearing loss (SNHL) of both ears- Primary documented in this encounter [facility] HealthcareEvaluation note* Diagnosis Sensorineural hearing loss (SNHL) of both ears- Primary documented in this encounter [facility] HealthcareEvaluation note* Diagnosis Sensorineural hearing loss (SNHL) of both ears- Primary documented in this encounter [facility] HealthcareHistory general Narrative - Reported* Type Description Date Medical History Kidney stones Medical History Enlarged Prostate Medical History TIA Surgical History Lithotripsy, multiple Surgical History Lap Rika 2013 Surgical History Total right knee surgery 1997 Surgical History Appendectomy Surgical History Hernia Surgical History UROLIFT 2017 Surgical History CAROTID RIGHT SIDE 12/2018 Hospitalization History See past surgical hx Hospitalization History KIDNEY STONES [facility] Other History of Present illness Narrative* Patient [...] merits of a modest diet were reviewed. [facility] Work Phone: History of Present illness NarrativePatient [...] merits of a modest diet and weight loss.[facility] Work Phone: Hospital Discharge instructions No data available for this section [facility] Progress note No data available for this section [facility] reason for referral (narrative)* Consultation (Routine) - Authorized Specialty Diagnoses / Procedures Referred By Alex oconnell Referred To Contact Cardiology Diagnoses Bilateral carotid artery stenosis Procedures Follow Up In Cardiology Kaiser Gómez MD [address] [address] Kaiser Gómez MD [address] [place] [address], [address] [address] Referral ID Status Reason Start Date Expiration Date V isits Requested Visits Authorized [id number] Authorized 01/26/2023 01/26/2024 1 1 [facility] Work Phone: Summary Purpose Family History [...] No August 26 3:14pm Chief Complaint TAMMI YI is being seen for an annual follow-up of.TAMMI YI is being seen for a 9 month follow-up of. Chief Complaint and Reason for Visit Chief Complaint Medicare Wellness renal 6 month f/u Reason for Visit CKD (chronic kidney disease) stage 3, GFR 30-59 ml/min [id number] Hyperuricemia Secondary hyperparathyroidism Thrombocytopenia Urinary retention due [...] Chief Complaint UA 6 month follow up [phone] COVID + Reason for Visit Benign prostatic hyp erplasia with lower urinary tract symptoms Carotid stenosis Cerebral atherosclerosis Chronic kidney disease Essential (primary) hypertension Peripheral artery disease Thrombocytopenia Chronic kidney disease COVID Essential (primary) hypertension Chief Complaint UA 6 month follow up [phone] COVID + TB[facility] ER f/u:Constipation,Fecal Impaction Reason for Visit Benign prostatic hyp erplasia with lower urinary tract symptoms Carotid stenosis Cerebral atherosclerosis Chronic kidney disease Essential (primary) hypertension Peripheral artery disease Thrombocytopenia Chronic kidney disease COVID Essential (primary) hypertension Chief Complaint Admit Date CC Adult Risk Stratification February 022023 10:28am wellness-HIGH RISK February 12, 2024 9:29am Amb Documentation March 08, 2024 9:10am ER f/u trouble urinating-HIGH RISK Decem 2023 8:51am RENAL 1 YR F/U March 31, 2024 1 0:58am Reason for Visit Admit Date Benign prostatic hyperplasia with lower urinary tract symptoms February 12, 2024 9:29am Carotid stenosis February 12, 2024 9:29am Cerebral atherosclerosis February 12, 2024 9:29am Chronic kidney disease February 11 9:29am Essential (primary) hypertension Novem r 2023 9:29am Medicare annual wellness visit, subseque nt February 12, 2024 9:29am Parkinsons disease February 12, 2024 9:29am Peripheral artery disease February 12, 2024 9:29am Thrombocytopenia February 12, 2024 9:29am Benign prostatic hyperplasia with lower urinary tract symptoms March 14, 2024 8:51am Chronic kidney disease March 14 8:51am Essential (primary) hypertension Decee r 2023 8:51am MCI (mild cognitive impairment) March 14, 2024 8:51am Parkinsons disease March 14, 2024 8:51am Thrombocytopenia March 14, 2024 8:51am Anemia of renal disease March 31 10:58am CKD (chronic kidney disease) stage 3, GF R 30-59 ml/min March 31, 2024 10:58am Hyperuricemia March 31, 2024 1 0:58am Secondary hyperparathyroidism March 312024 10:58am Chief Complaint Admit Date 6 month f/u-HIGH RISK July 27, 2024 9:5 4am Reason for Visit Admit Date Benign prostatic hyperplasia with lower urinary tract symptoms July 27, 2024 9:54am Carotid stenosis July 27, 2024 9:54a m Cerebral atherosclerosis July 27, 2024 9:54am Chronic kidney disease July 27, 2024 9: 54am Essential (primary) hypertension July 9:54am Parkinsons disease July 27, 2024 9:54a m Peripheral artery disease July 27, 2024 9:54am Thrombocytopenia July 27, 2024 9:54a m Additional Source Comments (unrecognized sect ion and content) No Status Records FoundNo Status Records FoundNo Status Records FoundNo Status Records FoundNo Status Records FoundNo Status Records FoundNo Status Records FoundNo Status Records FoundNo Status Records FoundNo Status Records FoundNo Status Records FoundNo Status Records FoundNo Status Records Found INFORMATION SOURCE (unrecogn ized section and content) DATE CREATED AUTHOR 09/17/2017 [facility] DATE CREATED AUTHOR AUTHOR'S ORGANIZ ATION 09/04/2018 [facility] DATE CREATED AUTHOR AUTHOR'S ORGANIZ ATION 01/16/2022 [facility] DATE CREATED AUTHOR AUTHOR'S ORGANIZ ATION 01/16/2022 [employer] DATE CREATED AUTHOR AUTHOR'S ORGANIZ ATION 04/19/2022 [facility] DATE CREATED AUTHOR AUTHOR'S ORGANIZ ATION 07/24/2022 [facility] DATE CREATED AUTHOR AUTHOR'S ORGANIZ ATION 09/15/[address] [facility] DATE CREATED AUTHOR AUTHOR'S ORGANIZ ATION [facility]20[facility] DATE CREATED AUTHOR AUTHOR'S ORGANIZ ATION 11/22/2023 [facility] DATE CREATED AUTHOR AUTHOR'S ORGANIZ ATION 03/07/2024 [facility] DATE CREATED AUTHOR AUTHOR'S ORGANIZ ATION 06/09/2024 [facility] DATE CREATED AUTHOR AUTHOR'S ORGANIZ ATION 10/08/2024 [facility] DATE CREATED AUTHOR AUTHOR'S ORGANIZ ATION 10/22/2024 [facility] EPIC REASON FOR VISIT (unrecogniz [...] for Toenail Care (SS: 11). Reason Comments [facility] Reason Comments Toenail Care Established pt prese nts today for nail care. SS: 11 Reason Comments Annual Exam Pt here for 1 year f ollow up for bilateral carotid artery stenosis, pt denies cardiac c/o at this time. Specialty Diagnoses / Procedures Referred By Contac t Referred To Contact Cardiology Diagnoses Bilateral carotid artery stenosis Procedures Follow Up In Cardiology Kaiser Gómez MD McGuinn, William P, MD Retired From Practice Referral ID Status Reason Start Date Expiration Date V isits Requested Visits Authorized [id number] Authorized 01/26/2023 01/26/2024 1 1 Reason Comments Toenail Care Established patient presents today with his for routine nail care. Care Teams (unrecognized sec tion and content) Team Status: Active Member Role Status Dates Wilder Sam DO Primary Care Provider Active Team Status: Inactive Member Role Status Dates Wilder Sam DO Primary Care Provide r, Attending Provider Active Start: July 27, 2024 End: July 27, 2024 Team Status: Active Member Role Status Dates Wilder Sam DO Primary Care Provide r, Attending Provider Active Start: February 03, 2024 Team Status: Inactive Member Role Status Dates Wilder Sam DO Primary Care Provide r, Attending Provider Active Start: February 12, 2024 End: February 12, 2024 Team Status: Active Member Role Status Dates Wilder Sam DO Primary Care Provider Active Start: March 05, 2024 Aleks Vargas DO Attending Provider Active S tart: March 05, 2024 Team Status: Active Member Role Status Dates Wilder Sam DO Primary Care Provider Active Start: March 08, 2024 Laura Carr CMA Attending Provider Active Start: March 08, 2024 Team Status: Inactive Member Role Status Dates Wilder Sam DO Primary Care Provide r, Attending Provider Active Start: March 14, 2024 End: March 14, 2024 Team Status: Active Member Role Status Dates Wilder Sam DO Primary Care Provider Active Start: March 22, 2024 Nabil Scott MD Attending Provider Active Start : March 22, 2024 Team Status: Inactive Member Role Status Dates Wilder Sam DO Primary Care Provider Active Start: March 31, 2024 End: March 31, 2024 Nabil Scott MD Attending Provider Active Start : March 31, 2024 End: March 31, 2024 Team Status: Inactive Member Role Status Dates [...] Provider Active Start: June 16, 2023 HEDY iMn Attending Provider Active St art: June 16, 2023 Team Status: Inactive Member Role Status Edis Sam DO Primary Care Provide r, Attending Provider Active Start: June 17, 2023 End: June 17, 2023 Customer Account Administrator Relationship Specialty Start Date End Date Wilder Sam DO [address] [place] [id number] PCP - General 04/09/21 Team Status: Inactive [...] Sam DO Primary Care Provider Active Start: December 07, 2023 Jojo Dela Cruz MD Attending Provider Active Sta rt: December 07, 2023 Team Status: Inactive Member Role Status Dates Wilder Sam DO Primary Care Provide r, Attending Provider Active Start: December 09, 2023 End: December 09, 2023 Customer Account Administrator Relationship Specialty Start Date End Date Wilder Sam MD [address] [place] [facility] [phone] PCP - General Internal Medicine 09/22/22 Customer Account Administrator Relationship Specialty Start Date End Date Wilder Sam MD [address] [place] [facility] [address] PCP - General Internal Medicine 09/22/22 Customer Account Administrator Relationship Specialty Start Date End Date Wilder Sam MD [address] [place] [facility] [phone] PCP - General Internal Medicine 09/22/22 Customer Account Administrator Relationship Specialty Start Date End Date Wilder Sam MD [address] [place] [facility] [address] PCP - General Internal Medicine 09/22/22 Customer Account Administrator Relationship Specialty Start Date End Date Wilder Sam MD [address] [place] [facility] [phone] PCP - General Internal Medicine 09/22/22 Customer Account Administrator Relationship Specialty Start Date End Date Wilder Sam MD [address] [place] [facility] [phone] PCP - General Internal Medicine 09/22/22 Customer Account Administrator Relationship Specialty Start Date End Date Wilder Sam MD [address] [place] [facility] [phone] PCP - General Internal Medicine 09/22/22 Customer Account Administrator Relationship Specialty Start Date End Date Wilder Sam DO PCP - General 04/09/21 Customer Account Administrator Relationship Specialty Start Date End Date Wilder Sam DO [address] [place] [facility] [phone] PCP - General Internal Medicine 08/11/24 Customer Account Administrator Relationship Specialty Start Date End Date Wilder Sam DO [address] [place] [facility] [phone] PCP - General Internal Medicine 08/11/24 Customer Account Administrator Relationship Specialty Start Date End Date Wilder Sam DO [address] [place] [facility] [address] PCP - General Internal Medicine 08/11/24 Customer Account Administrator Relationship Specialty Start Date End Date Wilder Sam DO [address] [place] [facility] [phone] PCP - General Internal Medicine 08/11/24 Customer Account Administrator Relationship Specialty Start Date End Date Wilder Sam DO [address] [place] [facility] [address] PCP - General Internal Medicine 08/11/24 Customer Account Administrator Relationship Specialty Start Date End Date Wilder Sam DO [address] [place] [facility] [phone] PCP - General Internal Medicine 08/11/24 Goals (unrecognized section and content) Goals may [...] BE BASED ON THE PRIMARY CLINICAL RECORDS. [facility] [employer] [facility]. provides no warranty or guarantee of the accuracy or completeness of information in this document.
== END 2024-11-16 10:45 | disposition home or self-care (01) ==
PROVIDERS: PCP Internal Medicine; Visit Provider Internal Medicine Cardiovascular Disease
DX: E78.2 Mixed hyperlipidemia (principal)
CPT/HCPCS: 36415; 80061

== ENCOUNTER 2024-11-16 10:50 | Outpatient (OUT) | payer MEDICARE, SELFPAY ==
--- OUTSIDE RECORDS SUMMARY | 2024-11-16 10:53 | XMS_ITS | Encounter Summary ---
Author Organization [facility] Address [address] [place] [address] Care Team Providers Care Casting Wheel Operator Name Role Phone Wilder Kay DO Primary Care Provider [phone] Encounter Details Date Type Department Care Team (Late Contact Info) Description 06/04/2022 Abstract [facility] [address] [facility] [place] [phone] Susana Rome, [facility] [address] [place] [address] Social History Tobacco Use Types Packs/Day Years Used Date Smoking Tobacco: Never Assessed Sex and Gender Information Value Date Recorded Sex Assigned at Not on file Legal Sex Male 6:51 PM EDT Gender Identity Not on file Sexual Orientation Not on file documented as of this encounter Plan of Treatment Upcoming Encounters Date Type Department Care Team (Late st Contact Info) Description 11/16/2024 2:00 PM EDT Office Visit [facility] [address] [place] [place] [phone] 12/19/2024 1:00 PM EDT Procedure Visit [facility] [address] [place] [address] Boom Sexton DPM [address] [place] [id number] 01/18/2025 10:30 AM EST Clinical Support [facility] [address] [facility] [address] [place] [address] Susana Rome, [facility] [address] [address] documented as of this encounter Visit Diagnoses Not on filedocumented in this encounter Care Teams Casting Wheel Operator Relationship Specialty Start Date End Date Wilder Kay DO [address] [facility] [place] [place] [address] PCP - General Internal Medicine 08/11/24 documented as of this encounter
--- OUTSIDE RECORDS SUMMARY | 2024-11-16 10:53 | XMS_ITS | Clinical Summary ---
Author Organization [facility] Address [address] [place], [place] [id number] Care Team Providers Care Personal Care Assistant Name Role Phone Patric Martinez Primary Care Provider [phone] Allergies No known active allergies Medications lisinopril (ZESTRIL) 5 mg tablet Take 1 tablet by mouth once daily. 0 10/27/2011 Active Vit C-Vit X-Mqdkon-Qxx-OM- 3 (OCUVITE) 307-41-3-150 dw-zniw-do-mg cap Take by mouth once daily. 0 10/27/2011 Active clopidogrel (PLAVIX) 75 mg tabletIndication s:Thrombocytopen ia Take 75 mg by mouth once daily. Active tamsulosin ER (FLOMAX) 0.4 mg [id number]: Thrombocytopenia Take 0.4 mg by mouth. Active finasteride (PROSCAR) 5 mg tabletIndication s:Thrombocytopen ia Take 5 mg by mouth once daily. Active potassium citrate ER (UROCIT-K) 10 mEq (1,080 mg) TbER 06/17/2016 Active Active Problems Problem Noted Date Diagnosed Date Thrombocytopenia 08/09/2014 Family History Medical History Relation Comments Prostate Cancer Father Relation Status Comments Father Social History Tobacco Use Types Packs/Day Years Used Date Smoking Tobacco: Former Smokeless Tobacco: Never Alcohol Use Standard Drinks/Week Comments Yes 0 (1 standard drink = 0.6 oz pur e alcohol) socially Sex and Gender Information Value Date Recorded Sex Assigned at Not on file Legal Sex Male 10:16 AM EST Gender Identity Not on file Sexual Orientation Not on file Last Filed Vital Signs Vital Sign Reading Time Taken Comments Blood Pressure 121/60 09/02/2017 1:02 PM EDT Pulse 70 09/02/2017 1:02 PM EDT Temperature 36.4 C (97.6 F) 09/02/2017 1:02 PM EDT Respiratory Rate 18 09/02/2017 1:02 PM EDT Oxygen Saturation 98% 09/02/2017 1:02 PM EDT Inhaled Oxygen Concentration - - Weight 86.7 kg (191 lb 3.2 oz) 09/02/2017 1:02 P M EDT Height 175.3 cm (5' 9.02 ) 09/02/2017 1:02 PM ED T Body Mass Index 28.22 09/02/2017 1:02 PM EDT Plan of Treatment Health Maintenance Due Date Last Done Comments Anxiety Screening 09/18/1953 Depression Screening 09/18/1953 DTaP,Tdap,Td Vaccine (1 - Tdap) 09/18/1954 Pneumococcal Vaccine: 50+ (1 of 1 - PCV) 09/18/1985 Shingrix Vaccine (1 of 2) 09/18/1985 RSV Vaccine (1 - 1-dose 75+ series) 09/18/2010 Diabetes Screening 09/02/2020 09/02/2017 Advance Directive Discussion 03/16/2024 Influenza Vaccine (#1) 2024 Procedures Procedure Name Priority Date/Time Associated Diagnosis Comments COMPREHENSIVE METABOLIC PANEL Routine 09/02/2017 1:23 PM EDT Thrombocytopenia (HCC) from Last 3 Months or Most Recently Relevant to Health Maintenance Results * (ABNORMAL) COMP METABOLIC PANEL (09/02/2017 1:23 PM EDT) Protein, Total 6.3 6.3 - 8.0 g/dL 09/03/2017 4:06 AM EDT [facility] Albumin 4.2 3.9 - 4.9 g/dL 09/03/2017 4:06 AM EDT [facility] Calcium 9.5 8.5 - 10.2 mg/dL 09/03/2017 4:06 AM EDT [facility] Bilirubin, Total 0.9 0.2 - 1.3 mg/dL 09/03/2017 4:06 AM EDT [facility] Alkaline Phosphatase 57 36 - 108 U/L 09/03/2017 4:06 AM EDT [facility] AST 20 14 - 40 U/L 09/03/2017 4:06 AM [facility] Glucose 159(H) 74 - 99 mg/dL 09/03/2017 4:06 AM [facility] Comment: The [place] Diabetes Association (ADA) provides guidance for cutoff values for fasting glucose and random glucose. The ADA defines fasting as no caloric intake for at least 8 hours. Fasting plasma glucose results between 100 to 125 mg/dL indicate increased risk for diabetes (prediabetes). Fasting plasma glucose results greater than or equal to 126 mg/dL meet the criteria for diagnosis of diabetes. In the absence of unequivocal hyperglycemia, results should be confirmed by repeat testing. In a patient with classic symptoms of hyperglycemia or hyperglycemic crisis, random plasma glucose results greater than or equal to 200 mg/dL meet the criteria for diagnosis of diabetes. Reference: Standards of Medical Care in Diabetes 2016, [place] Diabetes Association. Diabetes Care. 2016.39(Suppl 1). BUN 18 9 - 24 mg/dL 09/03/2017 4:06 AM [facility] Creatinine 1.31(H) 0.73 - 1.22 mg/dL 09/03/2017 4:06 AM [facility] Sodium 138 136 - 144 mmol/L 09/03/2017 4:06 AM [facility] Potassium 5.0 3.7 - 5.1 mmol/L 09/03/2017 4:06 AM [facility] Chloride 100 97 - 105 mmol/L 09/03/2017 4:06 AM [facility] CO2 22 22 - 30 mmol/L 09/03/2017 4:06 AM [facility] Anion Gap 16 9 - 18 mmol/L 09/03/2017 4:06 AM [facility] ALT 14 10 - 54 U/L 09/03/2017 4:06 AM [facility] eGFR- >60 09/03/2017 4:06 AM [facility] eGFR-All Other Races 53 . 09/03/2017 4:06 AM [facility] Comment: eGFR (Estimated GFR) Units of measure: mL/min/1.73 meters squared eGFR is derived from the reexpressed MDRD Study equation using the following parameters: serum creatinine, age, gender and race. The creatinine assay has been calibrated to be traceable to IDMS. An eGFR <60 mL/min/1.73m2 for >3 months is consistent with chronic kidney disease. Refer to KDOQI guidelines for clinical interpretation. In patients with unstable renal function, e.g. those with acute kidney injury, the eGFR may not accurately reflect actual GFR. Blood specimen (specimen) BLOOD SPECIMEN / Unknown 09/02/2017 1:23 PM EDT 09/02/2017 1:25 PM EDT us Chidi Castorena DO LABORATORY Final Res ult [facility] [address] [place] [address] from Last 3 Months or Most Recently Relevant to Health [place] [phone] [address] Care Teams Personal Care Assistant Relationship Specialty Start Date End Date Patric Martinez PCP - General Family Medicine 08/25/11
--- OUTSIDE RECORDS SUMMARY | 2024-11-16 10:53 | XMS_ITS | Encounter Summary ---
Author Organization [facility] Address [address] [place] [address] Phone Care Team Providers Care Special Inspector Name Role Phone Wilder Kay DO Primary Care Provider [phone] Encounter Details Date Type Department Care Team (Late st Contact Info) Description 03/22/2024 Scanned Document [facility] [address] [place] [phone] Scanning, Generic Provider Social History Tobacco Use Types Packs/Day Years Used Date Smoking Tobacco: Former Cigarettes Smokeless Tobacco: Never Alcohol Use Standard Drinks/Week Comments Never 0 (1 standard drink = 0.6 oz pur e alcohol) Sex and Gender Information Value Date Recorded Sex Assigned at Not on file Legal Sex Male 2:13 AM EST Gender Identity Not on file Sexual Orientation Not on file documented as of this encounter Plan of Treatment Upcoming Encounters Date Type Department Care Team (Late st Contact Info) Description 04/14/2025 10:40 AM EST Office Visit [facility] [address] [phone] Bi Willard MD [address] [facility] [address] [place] [address] documented as of this encounter Visit Diagnoses Not on filedocumented in this encounter Additional Health Concerns Assessment Noted Time A fall risk assessment has been complete d for the patient 01/26/2023 9:18 AM EST documented as of this encounter Care Teams Special Inspector Relationship Specialty Start Date End Date Wilder Kay DO PCP - General 04/09/21 documented as of this encounter
--- OUTSIDE RECORDS SUMMARY | 2024-11-16 10:53 | XMS_ITS | Encounter Summary ---
Author Organization [facility] [place] Address [address] [place] [address] Phone Care Team Providers Care Substation Electrician Supervisor Name Role Phone Wilder Kay DO Primary Care Provider [phone] Encounter Details Date Type Department Care Team (Late st Contact Info) Description 07/16/2022 Orders Only [facility] [address] [place] [address] Conversion, Onbase Social History Tobacco Use Types Packs/Day Years [...] Description 04/14/2025 10:40 AM EST Office Visit [facility] [address] [phone] Bi Willard MD 703 [facility] 2, [address] [address] Scheduled Orders Name Type Priority Associated Diagnoses Orde r Schedule OUTSIDE LAB SCAN Lab Ordered: 07/16/2022 documented as of this encounter Visit Diagnoses Not on filedocumented in this encounter Care Teams Substation Electrician Supervisor Relationship Specialty Start Date End Date Wilder Kay DO PCP - General 04/09/21 documented as of this encounter
--- OUTSIDE RECORDS SUMMARY | 2024-11-16 10:53 | XMS_ITS | Encounter Summary ---
Author Organization [facility] Address [address] [place] [address] Care Team Providers Care River And Harbor Soundings Group Leader Name Role Phone Wilder Kay DO Primary Care Provider [phone] Encounter Details Date Type Department Care Team (Late Contact Info) Description 06/04/2022 Abstract [facility] [address] [facility] [place] [phone] Susana Rome, [facility] [address] [place] [address] Social History Tobacco Use Types Packs/Day Years [...] [address] [place] [address] [place] [address] 12/19/2024 1:00 PM EDT Procedure Visit [facility] [address] [place] [address] Boom Sexton DPM [address] [place] [id number] 01/18/2025 10:30 AM EST Clinical Support [facility] [address] [facility] [address] [place] [address] Susana Rome, [facility] [address] [place] [address] documented as of this encounter Visit Diagnoses Not on filedocumented in this encounter Care Teams [place] [employer] [place] Soundings Group Leader Relationship Specialty Start Date End Date Wilder Kay DO [address] [facility] [place] [address] PCP - General Internal Medicine 08/11/24 documented as of this encounter
--- OUTSIDE RECORDS SUMMARY | 2024-11-16 10:53 | XMS_ITS | Clinical Summary ---
Author Organization [facility] Address [address] [place] [address] Care Team Providers Care Integrated Pest Management Technician Name Role Phone Wilder Kay Primary Care Provider [phone] Allergies No known active allergies Medications amLODIPine (Norvasc) 5 MG tablet Take by mouth Daily. Active aspirin 81 MG EC tablet Take 81 mg by mouth Daily Active atorvastatin (Lipitor) 40 MG tablet Take 40 mg by mouth in the morning. Active docusate sodium (Colace) 100 MG capsule Take 100 mg by mouth in the morning and 100 mg before bedtime. Active ergocalciferol (Vitamin D-2) 1.25 MG (23041 UT) capsule Take 1.25 mg by mouth 1 (one) time per week Active psyllium (Metamucil) 58.6 % powder Take 3 g of fiber by mouth in the morning and 3 g of fiber before bedtime. Active hydroCHLOROthiaz kathrine (HYDRODiuril) 12.5 MG tablet Take 12.5 mg by mouth Daily Active metoprolol succinate XL (Toprol-XL) 25 MG 24 hr tablet Take by mouth. Do not crush or chew. Active potassium chloride ER (Micro-K) 10 MEQ ER capsule Take 10 mEq by mouth in the morning and 10 mEq before bedtime. Do not crush or chew. . Active tamsulosin (Flomax) 0.4 MG 24 hr capsule Take 0.4 mg by mouth Daily Active ciclopirox (Loprox) 0.77 % creamIndications :Intertrigo Apply to armpits once a day/30 day supply 30 g 11 4 Active Additional Information Patient not taking.Reported on 09/12/2024 nystatin (Mycostatin) 584306 UNIT/GM powderIndication s:Intertrigo Apply to armpits twice a day when needed, 30 day supply 30 g 11 4 Active latanoprost (Xalatan) 0.005 % ophthalmic solution instill 1 DROP IN BOTH EYES EVERY NIGHT 4 Active cephalexin (Keflex) 500 MG capsuleIndicatio ns:Basal cell carcinoma of nasal tip Take 1 capsule, by mouth, bid, 10 days 20 capsule 4 Active Additional Information Patient not taking.Reported on 09/12/2024 atorvastatin (Lipitor) 80 MG tablet Take 80 mg by mouth Daily 4 Active carbidopa-levodo pa (Sinemet) 25-100 MG tabletIndication s:Parkinson's disease without fluctuating manifestations, unspecified whether dyskinesia present (HCC) TAKE 1 & 1/2 (ONE AND ONE-HALF) TABLETS BY MOUTH FOUR TIMES DAILY 540 tablet 1 4 Active Multiple Vitamins-Mineral s (OCUVITE PO) Take by mouth A ctive Active Problems Problem Noted Date Diagnosed Date Cerebrovascular accident 09/26/2023 Overview (09/26/2023): No further stroke-like symptoms. Patient again educated on signs and symptoms of stroke and advised to seek emergent evaluation in the ED should any such s/s develop. He continues on ASA 81 mg daily and is no longer taking Plavix due to history of a fall with a subsequent subdural hematoma (this was per the recommendations of neurosurgery). Repeat of CT of the head on 03/26/2022 showed no evidence of acute or remote intracranial hemorrhage. 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 He has been working with therapy and is doing well with this (currently PT 2 times a week). He is concerned in regards to his short-term memory as he always has issues with 3 object recall at PT, but is very functional without any concerns. His MOCA previously with 2/5 recall, though he has issues understanding due to his significant hearing deficits. Today he feels this is stable and his denies any safety concerns. PLAN - Continue Sinemet IR 25/100 1.5 tablets 4x/day (8am, 11am, 2pm, 5/6pm) - Continue PT (currently 2 x week) - Failed donepezil and memantine previously due to nightmares - Okay to use melatonin for sleep - Encouraged regular use of the walker to help with stability and mitigate fall risk. Fall risks discussed in detail. Sleep hygiene, brain stimulation, physical activity, and compensatory memory techniques were discussed Carotid arterial disease 09/26/2023 Overview (09/26/2023): Patient with a history of carotid disease and is status post surgery; doing well. 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 He is currently on plavix as well as ASA and with his recent history of head injury x2 on a concrete floor stat imaging is indicated to rule out subdural hematoma. Plan: Stat CT head Encounters Date Type Department Care Team Description 10/19/2024 11:30 AM EDT Clinical Support [facility] [address] [facility] [address] [place] [phone] Susana Rome CCC-Deshaun Sensorineural hearing loss (SNHL) of both ears (Primary Dx) 10/19/2024 Bamboo flowsheet [facility] [address] [facility] [address] [place] [address] Susana Rome CCC-Deshaun 10/10/2024 Abstract [facility] [address] [facility] [place] [address] Susana Rome CCC-A 10/05/2024 11:15 AM EDT Clinical Support [facility] [address] [place] [address] [place] [address] Susana Rome CCC-A Sensorineural hearing loss (SNHL) of both ears (Primary Dx) 10/05/2024 Bamboo flowsheet [facility] [address] [facility] [address] [place] [address] Susana Rome CCC-A 09/21/2024 2:00 PM EDT Office Visit [facility] [address] [facility] [address] [place] [address] Sensorineural hearing loss (SNHL) of both ears (Primary Dx) 09/12/2024 1:00 PM EDT Procedure Visit [facility] [address] [place] [address] Boom Sexton, DPAfsaneh Dermatophytosis of nail (Primary Dx); Dystrophic nail; Pain around toenail, right foot; Pain around toenail, left foot 09/12/2024 Bamboo flowsheet [facility] [address] [place] [address] Boom Sexton DPAfsaneh 09/12/2024 Travel 09/09/2024 Travel 08/17/2024 10:00 AM EDT Clinical Support [facility] [address] [facility] [address] [place] [address] Susana Rome CCC-A Sensorineural hearing loss (SNHL) of both ears (Primary Dx) 08/17/2024 Bamboo flowsheet [facility] [address] [facility] [address] [place] [address] Susana Rome CCC-A from Last 3 Months Immunizations Immunization Administration Dates Next Due Influenza, High Dose Seasona l, Preservative Free 12/16/2019,12/10/2018,12/23/2016 Influenza, High-dose Seasona l, Quadrivalent, Preservative Free 12/17/2022,12/17/2021,12/05/2020 Influenza, Unspecified 01/15/2016,01/08/2015,09/2013 Influenza, injectable, quadr ivalent, preservative free 12/09/2017 Influenza, seasonal, injectable 12/09/2019,12/27,12/14/2018 Pfizer Purple Cap SARS-CoV-2 Vaccination 05/05/2020,04/05/2020 Pneumococcal Conjugate PCV 13 03/18/2021 ,01/03/2020,01/15/2016,12/25 Pneumococcal Conjugate PCV 20 11/04/2021 Pneumococcal Polysaccharide PPSV23 03/16/2010, SARS-CoV-2, Unspecified 07/05/2021 Zoster, Recombinant 01/06/2019,11/08/2018,2018 Zoster, live 10/30/2010 Family History Medical History Relation Name Comments Cancer Brother Thyroid disease Daughter Stroke Father Heart disease Mother Cancer Sister Melanoma Neg Hx Relation Name Status Comments Brother Daughter Father Mother Sister Social History Tobacco Use Types Packs/Day Years Used Date Smoking Tobacco: Never Smokeless Tobacco: Never Tobacco Cessation:Counseling Given: Not Answered Alcohol Use Standard Drinks/Week Comments Never 0 (1 standard drink = 0.6 oz pure alcohol) Caffeine intake: 1-2 cups per day Sex and Gender Information Value Date Recorded Sex Assigned at Not on file Legal Sex Male 6:51 PM EDT Gender Identity Not on file Sexual Orientation Not on file Last Filed Vital Signs Vital Sign Reading Time Taken Comments Blood Pressure 121/66 01/25/2024 11:29 AM EST Pulse 69 01/25/2024 11:29 AM EST Temperature - - Respiratory Rate - - Oxygen Saturation - - Inhaled Oxygen Concentration - - Weight 83.9 kg (185 lb) 09/12/2024 12:50 PM EDT Height 180.3 cm (5' 11 ) 09/12/2024 12:50 PM EDT Body Mass Index 25.8 09/12/2024 12:50 PM EDT Plan of Treatment Upcoming Encounters Date Type Department Care Team (Late st Contact Info) Description 11/16/2024 2:00 PM EDT Office Visit [facility] [address] [place] [address] [place] [address] 12/19/2024 1:00 PM EDT Procedure Visit [facility] [address] [place] [address] Boom Sexton, DPM [address] [place], [place] [id number] 01/18/2025 10:30 AM EST Clinical Support [facility] [address] [place] [address] [place] [address] Susana Rome CCC-A [address] [place] [address] Health Maintenance Due Date Last Done Comments Influenza Vaccine (#1) 2024 , 12/17/2022, 12/17/2021, Additional history exists Pneumococcal Vaccine: 65+ Years Completed 11/04/2021, 03/18/2021, 01/03/2020, Additional history exists Procedures Procedure Name Priority Date/Time Associated Diagnosis Comments AUDITORY FUNCTION TESTS Routine 08/17/2024 11:16 AM EDT from Last 3 Months Results * Auditory function tests (08/17/2024 11:16 AM EDT) Narrative Susana Rome CCC-Deshaun - 08/17/2024 11:16 AM EDT Bilateral Moderate to profound sensorineural hearing loss Susana Rome CCC-A AUDIOLOGY SERVICES ORDERA BLES Final Result from Last 3 Months Insurance [employer] Care Teams Integrated Pest Management Technician Relationship Specialty Start Date End Date Wilder Kay DO [address] [place] [address] PCP - General Internal Medicine 08/11/24
--- OUTSIDE RECORDS SUMMARY | 2024-11-16 10:53 | XMS_ITS | Encounter Summary ---
Author Organization [facility] Address [address] [place] [address] Care Team Providers Care Linderman Machine Operator Name Role Phone Wilder Kay DO Primary Care Provider [phone] Encounter Details Date Type Department Care Team (Late Contact Info) Description 10/10/2024 Abstract [facility] [address] [facility] [place] [address] Susana Rome, [facility] [address] [facility] [place] [address] Social History Tobacco Use Types Packs/Day Years Used Date Smoking Tobacco: Never Smokeless Tobacco: Never Alcohol Use Standard Drinks/Week [...] [address] [place] [address] [place] [id number] 12/19/2024 1:00 PM EDT Procedure Visit [facility] [address] [place] [phone] Boom Sexton DPAfsaneh [address] [place] [address] 01/18/2025 10:30 AM EST Clinical Support [facility] [address] [facility] [address] [place] [address] Susana Rome, [facility] [address] [facility] [place], [place] [phone] documented as of this encounter Visit Diagnoses Not on filedocumented in this encounter Care Teams Linderman Machine Operator Relationship Specialty Start Date End Date Wilder Kay DO [address] [facility] [place] [address] PCP - General Internal Medicine 08/11/24 documented as of this encounter
--- OUTSIDE RECORDS SUMMARY | 2024-11-16 10:53 | XMS_ITS | Encounter Summary ---
Author Organization [facility] Address [address] [place] [address] Care Team Providers Care Frame Hand Name Role Phone Wilder Kay DO Primary Care Provider [phone] Encounter Details Date Type Department Care Team (Late Contact Info) Description 12/23/2022 Abstract [facility] [address] [place] [address] Boom Sexton DPM [address] [place], [place] [id number] Social History Tobacco Use Types Packs/Day Years Used Date Smoking Tobacco: Never Smokeless Tobacco: Never Tobacco Cessation:Counseling Given: Not Answered Alcohol Use Standard Drinks/Week Comments Not Currently 0 (1 standard drink = 0.6 oz pure alcohol) 1-2 drinks less than monthly in the past year, Caffeine intake: 1-2 cups per day Sex [...] Visit [facility] [address] [place] [address] [place] [id number] 12/19/2024 1:00 PM EDT Procedure Visit [facility] [address] [place] [address] Boom Sexton DPM [address] [place], [place] [id number] 01/18/2025 10:30 AM EST Clinical Support [facility] [address] [facility] [address] [place] [address] Susana Rome, [facility] [address] [facility] [place] [address] documented as of this encounter Visit Diagnoses Not on filedocumented in this encounter Care Teams Frame Hand Relationship Specialty Start Date End Date Wilder Kay DO [address] [facility] [place] [address] PCP - General Internal Medicine 08/11/24 documented as of this encounter
--- OUTSIDE RECORDS SUMMARY | 2024-11-16 10:53 | XMS_ITS | Encounter Summary ---
Author Organization [facility] Address [address] [place] [address] Care Team Providers Care Washing Machine Loader And Puller Name Role Phone Wilder Kay DO Primary Care Provider [phone] Encounter Details Date Type Department Care Team (Late Contact Info) Description 05/20/2021 Abstract [facility] [address] [facility] [place] [address] Susana Rome, [facility] [address] [place] [place] [address] Social History Tobacco Use Types Packs/Day Years [...] [address] [place] [address] [place] [address] 12/19/2024 1:00 PM EDT Procedure Visit [facility] [address] [place] [address] Boom eSxton DPM [address] [place] [id number] 01/18/2025 10:30 AM EST Clinical Support [facility] [address] [facility] [address] [place] [address] Susana Rome, [facility] [address] [place] [address] documented as of this encounter Visit Diagnoses Not on filedocumented in this encounter Care Teams Washing Machine Loader And Puller Relationship Specialty Start Date End Date Wilder Kay DO [address] [facility] [place] [address] PCP - General Internal Medicine 08/11/24 documented as of this encounter
--- OUTSIDE RECORDS SUMMARY | 2024-11-16 10:53 | XMS_ITS | Encounter Summary ---
Author Organization [facility] Address [address] [place] [address] Care Team Providers Care Audiovisual Production Specialist Name Role Phone Wilder Kay DO Primary Care Provider [phone] Encounter Details Date Type Department Care Team (Late Contact Info) Description 07/02/2022 Abstract [facility] [address] [facility] [place] [phone] Susana Rome, [facility] [address] [place] [address] Social History Tobacco Use Types Packs/Day Years [...] [address] [place] [address] [place] [address] 12/19/2024 1:00 PM EDT Procedure Visit [facility] [address] [place] [address] Boom Sexton DPM [address] [place] [id number] 01/18/2025 10:30 AM EST Clinical Support [facility] [address] [facility] [address] [place] [address] Susana Rome, [facility] [address] [place] [address] documented as of this encounter Visit Diagnoses Not on filedocumented in this encounter Care Teams Audiovisual Production Specialist Relationship Specialty Start Date End Date Wilder Kay DO [address] [facility] [place] [address] PCP - General Internal Medicine 08/11/24 documented as of this encounter
--- OUTSIDE RECORDS SUMMARY | 2024-11-16 10:53 | XMS_ITS | Clinical Summary ---
Author Organization [facility] Address [address] [place] [address] Phone Care Team Providers Care Auto Slip Cover Installer Name Role Phone Rahul Wilder Luna Primary Care Provider [phone] Allergies No known active allergies Medications aspirin 81 mg EC tablet Take by mouth once daily. Active carbidopa-levod opa (Sinemet) 25-100 mg tablet Take 1 tablet by mouth 4 times a day. Active hydroCHLOROthia zide (HYDRODiuril) 12.5 mg tablet Take 1 tablet (12.5 mg) by mouth once daily. Active tamsulosin (Flomax) 0.4 mg 24 hr capsule Take by mouth once daily. 08/06/2020 Active eye vitamin supplement (Ocuvite Eye Health Formula) capsule Take by mouth. As directed Active ergocalciferol (Vitamin D-2) 1.25 MG (87520 UT) capsule Take 1 capsule (1,250 mcg) by mouth 1 (one) time per week. Active atorvastatin (Lipitor) 80 mg tablet Take 1 tablet (80 mg) by mouth once daily. Active bran/gum/fib/ce l/psyl/kelp/pec (FIBER 6 ORAL) Take by mouth. Active docusate sodium (COLACE ORAL) Take by mouth. Active Active Problems Problem Noted Date Diagnosed Date BMI 26.0-26.9,adult 06/08/2024 Abnormal EKG 01/23/2023 Essential hypertension 01/23/2023 Hyperlipidemia 01/23/2023 Palpitations 01/23/2023 TIA (transient ischemic attack) 01/23/2023 Ventricular tachycardia, paroxysmal 01/23/2023 Bilateral carotid artery stenosis 01/12/2019 Resolved Problems Problem Noted Date Diagnosed Date Resolved Date History of right-sided carotid endarterectomy 08/16/19 20 06/08/2024 Immunizations Immunization Administration Dates Next Due COVID-19, mRNA, LNP-S, PF, 3 0 mcg/0.3 mL dose 05/06/2020,04/06/2020 Flu vaccine (IIV4), preserva tive free *Check age/dose* 12/09/2017 Flu vaccine, quadrivalent, h igh-dose, preservative free, age 65y+ (FLUZONE) 12/17/2022,12/17/2021,12/05/2020 Flu vaccine, trivalent, pres ervative free, HIGH-DOSE, age 65y+ (Fluzone) 02/12/2024,12/16/2019,12/10/2018,12/23 Influenza, Unspecified 12/14/2017,2016,01/15/2016,01/08,12/20/2013 Influenza, seasonal, injectable 12/14/2018 Pfizer Purple Cap SARS-CoV-2 05/05/2020,04/05/19 21 Pneumococcal conjugate vacci ne, 13-valent (PREVNAR 13) 03/18/2021,01/03/2020,01/15/2016,12/25 Pneumococcal conjugate vacci ne, 20-valent (PREVNAR 20) 11/04/2021 Pneumococcal polysaccharide vaccine, 23-valent, age 2 years and older (PNEUMOVAX 23) 03/16/2010,03/16/2008 Zoster vaccine, recombinant, adult (SHINGRIX) 01/06/2019,11/08/2018 Zoster, live 10/30/2010 Social History Tobacco Use Types Packs/Day Years Used Date Smoking Tobacco: Former Cigarettes Smokeless Tobacco: Never Tobacco Cessation:Counseling Given: Not [...] Sign Reading Time Taken Comments Blood Pressure 118/60 06/08/2024 3:28 PM EDT Pulse 91 06/08/2024 3:28 PM EDT Temperature - - Respiratory Rate - - Oxygen Saturation - - Inhaled Oxygen Concentration - - Weight 85 kg (187 lb 6.4 oz) 06/08/2024 3:28 PM EDT Height 177.8 cm (5' 10 ) 06/08/2024 3:28 PM EDT Body Mass Index 26.89 06/08/2024 3:28 PM EDT Plan of Treatment Upcoming Encounters Date Type Department Care Team (Late st Contact Info) Description 04/14/2025 10:40 AM EST Office Visit [facility] [address] [facility] [address] [address] [place] [address] Bi Willard MD [address] [facility] [address] [place] [address] Health Maintenance Due Date Last Done Comments Lipid Panel 1935 Medicare Annual Wellness Visit (AWV) 1935 Diabetes Screening 09/18/1953 DTaP/Tdap/Td Vaccines (1 - Tdap) 09/18/1957 RSV High Risk: (Elderly (60+) or Population) (1 - 1-dose 75+ series) 09/18/2010 COVID-19 Vaccine ( season) 2023 12/17/2021, 07/05/2021, 05/05/2020, Additional history exists Influenza Vaccine (#1) 2024 , 12/17/2022, 12/17/2021, Additional history exists Zoster Vaccines Completed 01/06/2019, 10/15, 10/30/2010 Pneumococcal Vaccine Completed 11/04/2021, 03/18/2021, 01/03/2020, Additional history exists HIB Vaccines Aged Out No longer eligi ble based on patient's age to complete this topic HPV Vaccines Aged Out No longer eligi ble based on patient's age to complete this topic Hepatitis A Vaccines Aged Out No long er eligible based on patient's age to complete this topic Hepatitis B Vaccines Aged Out No long er eligible based on patient's age to complete this topic IPV Vaccines Aged Out No longer eligi ble based on patient's age to complete this topic Meningococcal Vaccine Aged Out No prudencio abhinav eligible based on patient's age to complete this topic Rotavirus Vaccines Aged Out No longer eligible based on patient's age to complete this topic Insurance [employer] [place] MEDICARE [employer] [place] MED[employer] Care Teams Auto Slip Cover Installer Relationship Specialty Start Date End Date Wilder Kay DO PCP - General 04/09/21
--- OUTSIDE RECORDS SUMMARY | 2024-11-16 10:53 | XMS_ITS | Clinical Summary ---
Author Organization [facility] tem Address [id number] [address] [place] [address] Care Team Providers Care Administrative Support Manager Name Role Phone Wilder Kay DO Primary Care Provider [phone] Allergies No known active allergies Medications lisinopril (PRINIVIL,ZESTRIL) 5 mg tablet Take 5 mg by mouth daily. 2 Active metoprolol succinate XL (TOPROL-XL) 25 mg 24 hr tablet Take 1 tablet (25 mg total) by mouth in the morning. Active vit C/E/zinc/lutein/reny xanthin (OCUVITE EYE HEALTH ORAL) Take 1 capsule by mouth daily. Active carbidopa-levodopa (SINEMET) 25-100 mg per tablet Take 0.5 tablets by mouth in the morning and 0.5 tablets at noon and 0.5 tablets in the evening and 0.5 tablets before bedtime. Active aspirin 81 mg Take 1 tablet (81 mg total) by mouth in the morning. Active potassium bicarb-citric acid 20 mEq tablet, effervescent Take 1 tablet by mouth 2 (two) times a day. Active tamsulosin (FLOMAX) 0.4 mg capsule Take 1 capsule (0.4 mg total) by mouth in the morning. 1 Active atorvastatin (LIPITOR) 40 mg tablet Take 2 tablets (80 mg total) by mouth in the morning. Active hydroCHLOROthiazide (HYDRODIURIL) 12.5 mg tablet Take 1 tablet (12.5 mg total) by mouth daily. Active KLOR-CON/EF 25 mEq disintegrating tablet 10 mEq in the morning and 10 mEq before bedtime. 2 Active amLODIPine (NORVASC) 5 mg tablet Take 1 tablet (5 mg total) by mouth in the morning. 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 History of right-sided carotid endarterectomy Bilateral carotid artery stenosis 01/12/2019 Immunizations Immunization Administration Dates Next Due Influenza High Dose Preservative Free IM 019 Zoster Vaccine Recombinant 11/02/2018 Social History Tobacco Use Types Packs/Day Years Used Date Smoking Tobacco: Former Smokeless Tobacco: Never Tobacco Cessation:Counseling Given: Not Answered Alcohol Use Standard Drinks/Week Comments Not Currently 0 (1 standard drink = 0.6 oz pur e alcohol) Childcare Answer Date Recorded Childcare Unknown 08/25/2018 Employment Answer Date Recorded Employment Unknown 08/25/2018 Purpose - Life Answer Date Recorded Purpose and direction in life Unknown Sex and Gender Information Value Date Recorded Sex Assigned at Not on file Legal Sex Male 11:28 AM EDT Gender Identity Not on file Sexual Orientation Not on file Last Filed Vital Signs Vital Sign Reading Time Taken Comments Blood Pressure 118/78 10/05/2023 10:34 AM EDT Pulse 56 10/05/2023 10:34 AM EDT Temperature 36.9 C (98.4 F) 01/19/2019 11:28 AM EST Respiratory Rate 21 01/19/2019 11:28 AM EST Oxygen Saturation 98% 09/06/2021 9:39 AM EDT Inhaled Oxygen Concentration - - Weight 85.3 kg (188 lb) 09/22/2022 10:26 AM EDT Height 177.8 cm (5' 10 ) 09/06/2021 9:39 AM EDT Body Mass Index 26.98 09/06/2021 9:39 AM EDT Plan of Treatment Health Maintenance Due Date Last Done Comments Depression Screening 1947 DTaP,Tdap and Td Vaccines (1 - Tdap) 09/18/1954 Fall Risk Screening 09/18/2000 COVID-19 Vaccine (2023-2 5 season) 2023 12/17/2021, 07/05/2021, 12/17/2020, Additional history exists Tobacco Screening 10/04/2024 10/05/2023 Influenza Vaccine 11/14/2024 12/17/2022, , 12/05/2020, Additional history exists Zoster (Shingles) Vaccine Completed 2018, 11/02/2018, 10/30/2010 Goals Goal Patient Goal Type Associated Problems Recent Progress Patient-Stated? Author <enter goal here> General Yes Ashely Ramirez RN Note: Evaluation of progress towards goal: home care with and self care.- Ashely Ramirez RN 01/13/19 10:58 AM Medical Devices Implanted Type Area Bung Sewer Device Identifier Shelf Expiration Date Model / Serial / Lot Ptch Vsc 8x.8cm Xenosure Bvn Rpl [id number] - [id number] - [id number] Implanted:Qty: 1 on 01/17/2019 by Martin Solis MD at [facility] Graft Right: Arterial LeMaitre 07/11/2024 [id number] / [id number] / [id number] Description:[employer] C PATCH RIGHT CAROTID ARTERY Insurance [employer] Advance Directives * Full Code (Latest Code Status on File) Date Activated Date Inactivated Comments 01/12/2019 8:28 PM 01/19/2019 4:27 PM * Full Code Date Activated Date Inactivated Comments 01/12/2019 7:41 PM 01/12/2019 8:28 PM Care Teams Administrative Support Manager Relationship Specialty Start Date End Date Wilder Kay DO PCP - General Internal Medicine 08/19/21
--- OUTSIDE RECORDS SUMMARY | 2024-11-16 10:53 | XMS_ITS | Encounter Summary ---
Author Organization [facility] Address [address] [place] [address] Phone Care Team Providers Care Sandwich Peddler Name Role Phone Wilder Kay DO Primary Care Provider [phone] Encounter Details Date Type Department Care Team (Late st Contact Info) Description 07/19/2021 Orders Only [facility] [address] [place] [address] Conversion, Onbase Social History Tobacco Use Types [...] Description 04/14/2025 10:40 AM EST Office Visit [facility] [address] [phone] Bi Willard MD [address] [facility] [address], [address] [address] Scheduled Orders Name Type Priority Associated Diagnoses Orde r Schedule OUTSIDE LAB SCAN Lab Ordered: 07/19/2021 documented as of this encounter Visit Diagnoses Not on filedocumented in this encounter Care Teams Sandwich Peddler Relationship Specialty Start Date End Date Wilder Kay DO PCP - General 04/09/21 documented as of this encounter
--- NOTE | 2024-11-16 11:11 | XR_ITS ---
The [address] [address] Patient Name: TAMMI RICHMOND MRN: [id number] date: 1935 Sex: M Assigned Patient Location: [facility] Current Patient Location: [facility] Accession/Order Number: [id number] Exam Date: 11/16/2024 11:20 Report Date: 11/16/2024 11:57 At the request of: MEG LOPEZ NP Procedure: XR abdomen 1V SINGLE VIEW ABDOMEN COMPARISON: CT 12/07/2023 CLINICAL DATA: Follow-up of kidney stones. Supine view of the abdomen and pelvis was obtained. There is air and stool within the colon. There is also air within nondistended small bowel. Both kidneys are partially obscured. No obvious radiopaque stones are seen on the right. There are potential small stones on the left measuring up to 6 mm. No suspect radiopaque ureteral or bladder calculi are seen. There are no soft tissue masses. Levoscoliotic curvature and degenerative changes are visualized at the spine. XR/XR abdomen 1V IMPRESSION: LIMITED STUDY HOWEVER LEFT NEPHROLITHIASIS IS SUSPECTED. Impression dictated by: Keila Huerta M.D. 11/16/2024 11:57 AM Dictation Location: [place] [address] Electronically authenticated by: [id number] Y Date: 11/16/2024 11:57
== END 2024-11-16 10:51 | disposition home or self-care (01) ==
LOC: RAD 10:51
PROVIDERS: PCP Internal Medicine; Visit Provider Nurse Practitioner Family
DX: N20.0 Calculus of kidney (principal)
CPT/HCPCS: 74018

== ENCOUNTER 2025-02-25 11:53 | Outpatient (OUT) | payer MEDICARE, SELFPAY ==
--- OUTSIDE RECORDS SUMMARY | 2025-02-14 06:49 | XMS_ITS | Continuity of Care Document ---
Author Organization [facility] Address [address] [place] [address] Phone Care Team Providers Care Drum Maker Name Role Phone Wilder Kay DO Primary Care Provider [phone] Bi Willard MD Attending Provider Wilder Kay DO Attending Provider Care Teams Patient Care Team Team Status: Active Member Role/Relationship Status Dates Wilder Kay DO Primary Care Provider Active Patient Care Team Team Status: Active Member Role/Relationship Status Dates Wilder Kay DO Primary Care Provider Active Start: November 16, 2024 Emiliano Randall ProviderActiveStart: November 16, 2024 Patient Care Team Team Status: Inactive Member Role/Relationship Status Dates Wilder Kay DO Primary Care Provider Active Start: February 14, 2025 End: February 14twyla Kay DOAttmono ProviderActiveStart: February 14, 2025 End: February 14, 2025 Chief Complaint and Reason for Visit Chief Complaint Admit Date Wellness-HIGH RISK February 14, 2025 1 0:50am Reason for Visit Admit Date Benign prostatic hyperplasia with lower urinary tract symptoms February 14, 2025 10:50am Carotid stenosis February 14, 2025 1 0:50am Cerebral atherosclerosis February 14 025 10:50am Chronic kidney disease February 14 10:50am Essential (primary) hypertension Decembe r 2024 10:50am Medicare annual wellness visit, subseque nt February 14, 2025 10:50am Parkinsons disease February 14, 2025 1 0:50am Peripheral artery disease February 14, 2025 10:50am Thrombocytopenia February 14, 2025 1 0:50am Allergies, Adverse Reactions, Alerts Allergen Type Severity Reaction Last Updated Verified Status No Known Allergies Allergy Unknown February 14, 2025 10:34amYesActive Social History Smoking Status Status Start Date End Date Date of Observa tion Ex-smoker (finding) March 31, 2024 11:15am Observation Status Observation Response Date of Response Legal Sex Male (finding) [facility] 1935 Family History Relationship Condition Age at Onset Recorded Date/T rogelio brother Unknown Malignant neoplasmUnknownfatherDeceasedUnknownmotherHistory of strokeUnknown DeceasedUnknownsisterHistory of strokeUnknownHypertensionUnknown Problems Active Problems Problem Diagnosis/Recorded Date Onset Date Status C omments Medicare annual wellness vis it, subsequent February 10, 2024 7:15am Unknown Active Carotid stenosisJune 2023 6:37amUnknownActives/p right CEA - 12/2018 Secondary hyperparathyroidismFebruary 2023 3:32pmUnknownActiveCKD (chronic kidney disease) stage 3, GFR 30-59 ml/minFebruary 2023 3:30pmUnknownActive Cerebral atherosclerosisJune 2023 6:34amUnknownActiveHypercholesterolemia February 14, 2025 11:26amUnknownActiveHyperuricemiaFebruary 2023 3:32pm UnknownActiveChronic kidney diseaseFebruary 2023 9:02pmUnknownActiveMCI (mild cognitive impairment)March 14, 2024 9:37amUnknownActive ThrombocytopeniaFebruary 2023 4:14pmUnknownActiveEssential (primary) hypertensionFebruary 2023 3:56pmUnknownActiveBenign prostatic hyperplasia with lower urinary tract symptomsApril 2023 6:36amUnknownActivePeripheral artery diseaseJune 2023 6:39amUnknownActive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Anemia of renal diseaseFebruary 2023 3:56pmUnknownActive Parkinsons diseaseSeptember 2019 9:54pmUnknownActiveNSVT (nonsustained ventricular tachycardia)June 08, 2024 9:03pmUnknownActiveEPS w/ negative results - 2016Inactive/Resolved Problems Problem Diagnosis/Recorded Date Onset Date Status C omments CATARINO (acute kidney injury) November 18, 2019 9:19pm Unknown Resolved Probl em List clean-up per request of Phys. EHR Cmte Subacute subdural hematoma July 16, 2021 11:18am Unknown Resolved Problem Li st clean-up per request of Phys. EHR Cmte Acute subdural hematoma July 15, 2021 1:46pm Unknown Resolved Problem Lis t clean-up per request of Phys. EHR Cmte BPH (benign prostatic hyperplasia) November 18, 2019 9:20pm Unknown Resolved Probl em List clean-up per request of Phys. EHR Cmte Hypertensive chronic kidney disease with stage 1 through stage 4 chronic kidney disease, or unspecified chronic kidney disease April 30, 2023 3:30pm Unknown Resolved NephrolithiasisSeptember 2019 11:33amUnknownResolvedMetabolic acidosis November 19, 2019 11:33amUnknownResolvedProblem List clean-up per request of Phys. EHR CmteAcute urinary retentionDecember 2023 8:50pmUnknownResolved Hydronephrosis, rightSeptember 2019 9:20pmUnknownResolvedProblem List clean-up per request of Phys. EHR CmteHTN (hypertension)November 19, 2019 11:36amUnknownResolvedProblem List clean-up per request of Phys. EHR Cmte HyperkalemiaSeptember 2019 6:01pmUnknownResolvedProblem List clean-up per request of Phys. EHR Cmte Medications Medication Status Dose Units Route Directions Qty Days Refills S tart Date Stop Date End Date Reason(s) Instructions Adherence Atorvastatin 80 mg tablet Discontinued 80 MG PO Daily 100 100 3 August 06, 2023 9:02am March 31, 2024 11:14amFreeTextSig: TAKE 1 TABLET BY MOUTH ONCE DAILY; Note: Source Status: Start; Refills: 3; Qty: 100 Tablet; Provider: Rahul Hdz ( )Ergocalciferol (Vitamin D2) 1,250 mcg (50,000 unit) capsule Nboaodubthhc45810BFIDBL.A5mmwhmWmaq 2023 8:59amJuly 2023 9:02am Ergocalciferol (Vitamin D2) 1,250 mcg (50,000 unit) shlkrerLkoiyhkpjsrw74174LUNO PO.G0qqfiv70Mcgd 2023 9:01amJuly 2023 10:34amErgocalciferol (Vitamin D2) 1,250 mcg (50,000 unit) capsuleDiscontinued0.ROUTE.GWUZAJD696Mgbn 2023 10:34amJanuary 2024 11:33amTAKE 1 CAPSULE BY MOUTH EVERY 2 weeks Amoxicillin 500 mg ykpvozfOtriemasohxm1001ZVNDNm Dmfaecjh66Bvla 2023 11:00pmJuly 2023 8:55amSBE prophylaxisAmoxicillin 500 mg capsule Mdfmbygxihel1913LWUX.OYDEANS29Dmvxwnkj 2023 12:00amJanuary 2024 11:07amSBE prophylaxis2,000 mg orally; Take 1 hour prior to dental appointment Hydrochlorothiazide 12.5 mg tabletActive0.ROUTE.BHQECMI415Ioqaepxy 2023 2:38pmTAKE 1 TABLET BY MOUTH IN THE MORNINGComplies with drug therapyAmoxicillin 500 mg zvdlwjlUonneu2NFVqjl588Spak 2024 12:18pmSBE prophylaxisorally once; 4 capsules, taken 30-60 minutes prior to dentist appt.Complies with drug therapy Carbidopa-Levodopa 25-100 mg tabletDiscontinued1.5TABPOFour times isdkf641489 September 12, 2024 3:11pmNovember 2024 12:12pmFreeTextSig: TAKE 1 TABLET BY MOUTH FOUR TIMES DAILY Oral; Note: Source Status: Continue; Provider:Kayden ChloeAtorvastatin 80 mg zcjelhYabfvhxtjfrk48WFGLEqvdy15531Ljof 2024 8:00am October 03, 2024 12:03pmAtorvastatin 80 mg shsljcJadzzbtgnwli05MYLFWgjmb124839 October 03, 2024 12:03pmJuly 2024 3:03pmAtorvastatin 80 mg hstbdqHgjdms11WO WLNwuxq642090Hyuk 2024 3:03pmComplies with drug therapyCarbidopa-Levodopa 25-100 mg tabletActive1.5TABPOFour times nezxu621383Jnwrqdkd 2024 12:12pm FreeTextSig: TAKE 1 TABLET BY MOUTH FOUR TIMES DAILY Oral; Note: Source Status: Continue; Provider:Kayden ChloeComplies with drug therapyHydrochlorothiazide 12.5 mg IzwhgfySqfeutsfhyoh46.5MGPODailyMay 2021 11:00pmFebruary 2023 3:17pmAspirin 81 mg TdscxiyRirbrddausja96WHNUAarxnVmm 2021 11:00pmFebruary 2023 3:18pmAtorvastatin (Lipitor) 40 mg knirohMybscpxqqtil35SSFIQaiyx Skyla 2019 11:00pmFebruary 2023 3:18pmClopidogrel (Plavix) 75 mg hviqraWpapqhkzhfmn60PTWKMexziVcctpxebk 3rd, 2020 11:00pmMay 2021 11:22am Tamsulosin (Flomax) 0.4 mg capsuleDiscontinued0.4MGPODailySept2019 11:00pmFebruary 2023 3:17pmLisinopril 5 mg tabletDiscontinuedSeptember 2019 11:00pmJuly 15, 2021 1:11pmOn Hold: till seen by NephrologyMetoprolol Succinate 25 mg tablet extended release 24 liEikbtdpwtjnl80KFSUYmpkbQbzbmirmh 3rd, 2020 11:00pmMa2021 1:12pmCarbidopa-Levodopa (Sinemet) 25-100 mg fxszjeDabyybqhvnoo32 - 100TABPOFour times dailySeptember 2019 11:00pm April 30, 2023 3:18pmPotassium Bicarb-Citric Acid (Effer-K) 20 mEq tablet, jukfdpcrdhidPgbmtgrsrbvw75VUEECTyefk dailySeptember 2019 11:00pmFebruary 2023 3:17pmAmlodipine 5 mg VtfytfYqoldfhqxfyk9EEKYGedsk72229Hsnliyapn 2019 11:00pmMay 2021 1:14pmDocusate Sodium 100 mg hdpsbkgYluqyy799HSXYNdniu December 08, 2023 11:00pmComplies with drug therapyOndansetron 4 mg tablet,yfjymdmmdwalnxMvqczvoujzdm9OUJABvnjn 8 hours as needed for nausea and inuxacfm93385Rjpcckwvg 2023 11:00pmJanuary 2024 11:10amLevofloxacin 250 mg dqewrwSwzzsjfbrsvz805GOUL.XMCXDPB816Wnfhuzwmg 2023 11:00pmJanuary 2024 11:09am2 tablets PO today followed by 1 tab dailyAmlodipine 5 mg icdlegNmjgvowlxftp0ORGNERenqwYfejjmfy 2023 12:00amMay 2024 9:09am FreeTextSi tablet Orally Once a day; Note: Source Status: Continue; Provider: Rahul Hdz EAspirin 81 mg tablet,delayed release (DR/EC)Tsnjlp90AC PODailyFebruary 2023 12:00amComplies with drug therapyAtorvastatin 80 mg fplomzOuyvvkjmqfqd86CRDNHoypbOuwaevrx 2023 12:00amMa2023 9:03am FreeTextSig: TAKE 1 TABLET BY MOUTH ONCE DAILY; Note: Source Status: Start; Refills: 3; Qty: 100 Tablet; Provider: Rahul Hdz ( ) Carbidopa-Levodopa 25-100 mg tabletDiscontinuedTABPOFebruary 2023 12:00am July 27, 2024 9:09amFreeTextSig: TAKE 1 TABLET BY MOUTH FOUR TIMES DAILY Oral; Note: Source Status: Continue; Provider:Kayden ChloeDocusate Sodium 100 mg hrkuhofNsctnoofwqyf4OYFKLRmvmx dailyFebruary 2023 12:00amNovember 2023 9:36amFreeTextSi capsule as needed Orally TWICE A DAY; Note: Source Status: Taking; Provider: Rahul Hdz ( )Ergocalciferol (Vitamin D2) 1,250 mcg (50,000 unit) capsuleDiscontinuedPOFebruary 2023 12:00amJuly 2023 9:01amFreeTextSi capsule Orally Q2 weeks; Note: Source Status: Refill; Refills: 1; Provider: Sonia FerrerCalcium Polycarbophil (Fiber (Calcium Polycarbophil)) 625 mg ukpuojJlligx4887XADBOondnNtcebffa 2023 12:00amFreeTextSi tablets as needed Orally ONCE A DAY; Note: Source Status: Taking; Provider: Rahul Hdz ( )Complies with drug therapyHydrochlorothiazide 12.5 mg joeciyJmaihiezaqwa6XQQBAZxmduDmhohrrn 2023 12:00amDecember 2023 2:38pmFreeTextSi tablet in the morning Orally Once a day; Note: Source Status: Refill; Refills: 3; Qty: 90 Tablet; Provider: Rahul Hdz EMetoprolol Succinate 25 mg tablet extended release 24 lkLkzfqkzvunob0YJCFQQlkojMfvjpuyi 2023 12:00amMay 2024 9:09am FreeTextSi tablet Orally Once a day; Note: Source Status: Continue; Provider: Rahul Hdz XHv-Rj-Ci2-Opq-Era-Vsxj-Lut-Paulo (Ocuvite Adult 50 Plus) 250 mg (90 mg-160 mg) lnjvwxmXmlbpeyqqctu9TYLBG.twice a dayFebruary 2023 12:00amJanuary 2024 11:10amPotassium Citrate 10 mEq (1,080 mg) tablet extended pjnmqwlEgzvytyisjcm8WJGJXWsuqw dailyFebruary 2023 12:00amJanuary 2024 11:12amFreeTextSi tablet with meals Orally Twice a day; Note: Source Status: Taking; Refills: 1; Qty: 180 Tablet; Provider: Sonia Ferrer Tamsulosin 0.4 mg capsuleActiveMGPOFebruary 2023 12:00amFreeTextSig: TAKE 1 CAPSULE BY MOUTH DAILY Oral; Note: Source Status: Taking; Refills: 5; Qty: 30 Each; Provider: GARRET NAJERAComplies with drug therapyCarbidopa-Levodopa 25- 100 mg tabletDiscontinued1.5TABPOFour times dailyMay 2024 9:08amJune 2024 3:11pmFreeTextSig: TAKE 1 TABLET BY MOUTH FOUR TIMES DAILY Oral; Note: Source Status: Continue; Provider:Kayden ChloeAtorvastatin 80 mg tablet Rgryomddvwsj95XAIDIejxbEjkfbvj 2024 11:07amJuly 2024 8:01am FreeTextSig: TAKE 1 TABLET BY MOUTH ONCE DAILY; Note: Source Status: Start; Refills: 3; Qty: 100 Tablet; Provider: Rahul Hdz ( )Potassium Chloride 10 mEq capsule, extended xvkntmkOplwcwlbvwfa03GGOWPJfvolUljfcnw 2024 12:00amMay 2024 9:09amErgocalciferol (Vitamin D2) 1,250 mcg (50,000 unit) capsuleActive0.ROUTE.LXRQTXJ868Pegxfqf 2024 11:33amTAKE 1 CAPSULE BY MOUTH EVERY 2 weeksComplies with drug therapySulfamethoxazole-Trimethoprim 800- 160 mg wlreyzWoazdysjjmvo2GXSLLEdsfk ynxrg1184Omso 2023 11:00pmSeptember 2023 1:42pmLutein-Zeaxanthin (Ocuvite Lutein 25) 25-5 mg capsuleActiveCAP POMay 2024 11:00pmComplies with drug therapy Immunizations Immunization Event Date Not Given Reason Dose Number 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 Lot Number Reason(s) Given Vaccine Information Statement (VIS) Detail Administration Location COVID-19 mRNA, Comirnaty ([employer] April 06, 2020 COVID-19 mRNA, Comirnaty ([employer]May 06OVID-19 mRNA, Comirnaty ([employer]December 17OVI Comirnaty ([employer] Tri-Sucrose +July 05OVI mRNA Bivalent Booster ([employer]December 17, 2021Fluzone TIV High- Dose 65YR+February 12, 2024U8499DAFPG [facility]influenza, unspecified formulationOctober 4th, 2023Pneumococcal Conjugate Vaccine, 20 valentAugust 2021 Medical Equipment Device Date Implanted Device Details Polymeric ureteral stent November 19, 2019 KATH : [id number] Issuing Agency: [facility] Device Id: [id number] Expiration Date: 2022-07-17 Lot Number: [id number] ureteral stentS2019UDI: ()[id number] Issuing Agency: [facility] Device Id: [id number] Expiration Date: 2022-10-02 Lot Number: [id number] fixation plate, non-bioabsorbableMay 2021 KATH: ()[id number] Issuing Agency: [facility] Device Id: [id number] fixation plate, non-bioabsorbableMay 2021UDI: ()[id number] Issuing Agency: [facility] Device Id: [id number] bone screw, non-bioabsorbable, sterileMay 2021UDI: ()[id number] Issuing Agency: [facility] Device Id: [id number] bone screw, non-bioabsorbable, sterileMay 2021UDI: ()[id number] Issuing Agency: [facility] Device Id: [id number] bone screw, non-bioabsorbable, sterileMay 2021UDI: ()[id number] Issuing Agency: [facility] Device Id: [id number] bone screw, non-bioabsorbable, sterileMay 2021UDI: ()[id number] Issuing Agency: [facility] Device Id: [id number] Relevant Diagnostic Tests and/or Laboratory Data Laboratory Results Test Collection Date/Time Result Date/Time Result Interpretation Reference Range Result Comment Performing Site Cholesterol/HDL Ratio November 16, 2024 10:06am Sept emb2024 10:06am 2.3 3.3 - 4.4 LOW RISK4.4 - 7.1 AVERAGE RISK7.1 - 11.0 MODERATE RISK>11.0 HIGH RISK Cholesterol LevelSept2024 10:06amS2024 10:82zt096 mg/dL <=200HDL CholesterolSept2024 10:06amS2024 10:06am43 mg/dL40-60> or =60 mg/dl - LOW CARDIOVASCULAR RISK<40 mg/dl - HIGH CARDIOVASCULAR RISKLDL Cholesterol, CalculatedSe2024 10:06am November 16, 2024 10:06am36.6 mg/dL<100 mg/dl DMLEYKY289-349 mg/dl NEAR OR ABOVE ILGOFSR278-795 mg/dl BORDERLINE YAFL749-538 mg/dl HIGH>190 mg/dl VERY HIGH Triglycerides LevelSept2024 10:06amS2024 10:89di973 mg/dL<=150VLDL CholesterolSept2024 10:06amS2024 10:06am 21.4 mg/dL Vital Signs Vital Reading Result Reference Range Collection Date/Time Height 70 [in_i] February 14, 2025 10:23lqEfvnzx03.83 kgDece2024 10:57amHeart Rate70 /krg04-023PohwtugcFebruary 14, 2025 10:57amRespiratory rate14 /duu27-77BnzyhxzeFebruary 14, 2025 10:57amOxygen saturation by Pulse xmcejmwi03 %95-100February 14, 2025 10:57amBP Vsnbfutb801 mm[Hg]100-140Dece2024 10:57amBP Qkkkqptme43 mm[Hg]60-100Dece2024 10:57amBMI (Body Mass Index)25.2 kg/z5Foywyvxu2024 10:57am Advance Directives Advance Directive Response Recorded Date/ Time Advance Directives No August 26 2:14pm Insurance Providers Guarantor Dhruv Patel Address [address] [place] [address] [place] [address]Irodpib Info.Home Phone: Coverage Status Update:2024 Payer Group Member ID Coverage Type Subscriber Relationship to Subscriber Effective Date Expiration Date [facility] Netwk Access Id: [id number] L Scheerer Id: [id number] [address] [place] [address] Home Phone: SelfMedicare [id number] L Scheerer Id: [id number] [address] [place] [address] Home Phone: Self[employer] MCR PFFS Id: [id number] L Scheerer Id: [id number] [address] [place] [address] Home Phone: SelfMMO [facility] Adv PFFS [id number] L Scheerer Id: [id number] [address] [place] [address] Home Phone: [employer] [facility] PFFS Id: [id number] L Scheerer Id: [id number] [address] [place] [address] Home Phone: Self Encounters Encounter Location(s) Arrival/Admit Date Discharge/Departure Date Discharge/Departure Disposition Provider(s) Non-patient / Non-visit -[facility] Omar Miller November 16, 2024 11:06am Bi Willard , MDDeparted Physician/Provider [facility] 11:48amDischarged to home care or self care (routine discharge)Wilder Kay DO Recent Diagnosis Onset Date Admit Date Benign prostatic hyperplasia with lower urinary tract symptoms Unknown February 14, 2025 10:50am Carotid stenosis Unknown February 14 10:50am Cerebral atherosclerosis Unknown r 2024 10:50am Chronic kidney disease Unknown February 14, 2025 10:50am Essential (primary) hypertension Unknown February 14, 2025 10:50am Medicare annual wellness visit, subsequent Unkno wn February 14, 2025 10:50am Parkinsons disease Unknown February 14, 2025 10:50am Peripheral artery disease Unknown [facility] er 2024 10:50am Thrombocytopenia Unknown February 14 025 10:50am Assessments Diagnosis Onset Date Resolution Status Admit Date Benign prostatic hyperplasia with lower urinary tract symptoms acuteDe2024 10:50amCarotid stenosisacuteDece2024 10:50am Cerebral atherosclerosisacuteFebruary 14, 2025 10:50amChronic kidney disease acuteDe2024 10:50amEssential (primary) hypertensionacuteFebruary 14, 2025 10:50amMedicare annual wellness visit, subsequentacuteFebruary 14, 2025 10:50amParkinsons diseaseacuteDecember 2024 10:50amPeripheral artery diseaseacuteDecember 2024 10:50amThrombocytopeniaacuteDece2024 10:50am Plan of Treatment Author Wilder Kay [facility] 20[facility] 8:25amI have instructed this patient to consume a healthy, low-fat, low-salt diet. I have also encouraged them to continue exercise with weight loss to achieve/maintain a BMI < 30. I have instructed this patient on the correct procedure for obtaining home BP measurements:? - rest for 5 minutes w/o talking. - positioned w/ feet on floor and arms supported. - average best 2/3 readings w/ goal < 135/85. - update office w/ home readings in 2 weeks. Continue HCTZ without interruption I instructed this patient on the benefits of adequate control of hypertension and diabetes, if appropriate. I have also instructed them to avoid use of NSAIDs due to the adverse effects on renal function. I instructed them on adequate fluid balance and to consume at least 48 oz of fluids daily. I also instructed them to monitor for an unexplained increase in weight and lower extremity edema. They have been instructed to notify the office for any changes or concerns. f/u Nephrology No s/s of acute, focal neurologic deficits. I have reviewed stroke symptoms and instructed them to go to the ER for any suspicious symptoms. They have been instructed to continue secondary preventive measures. s/p right CEA - 12/2018 f/u Vascular Surgery Symptoms tolerable Continue Tamsulosin without interruption No s/s bleeding: denies epistaxis, heartburn, dysphagia, N/V, hematemesis, melena or hematochezia Monitor platelet counts No s/s of acute, focal neurologic deficits. I have reviewed stroke symptoms and instructed them to go to the ER for any suspicious symptoms. They have been instructed to continue secondary preventive measures. Encouraged to walk daily until pain develops, rest and repeat. Instructed to inspect feet daily for cuts or ulcerations. Continue secondary prevention measures Instructed on a healthy diet and low intensity activity. Fall precautions f/u Neurology I have instructed this patient on the recommended lifestyle changes, which includes a low fat, high fiber diet along with a regular exercise routine. I have also reviewed the recommended age-appropriate preventive testing for this patient. I have also reviewed the recommended vaccines for their age and risk factors. Future Tests Future scheduled test information is unavailable Pending Tests Test Name Ordered Date Scheduled Date Comprehensive Metabolic Panel February 14, 2025 11:25am Future Visits Future appointment information is unavailable Future Procedures Procedure Name Ordered Date Scheduled Date Complete Blood Count Auto Diff February 14 11:25am Lipid PanelDecemb2024 11:25amMicroAlb Creat Ratio,[facility] 2024 11:25am Future Medications Future medication information is unavailable Patient Instructions Patient instructions are unavailable
--- OUTSIDE RECORDS SUMMARY | 2025-02-25 12:02 | XMS_ITS | Clinical Summary ---
Author Organization [facility] Address [address] [place] [address] Care Team Providers Care Manager Generation Name Role Phone Wilder Kay Primary Care Provider [phone] Allergies No known active allergies Medications MedicationSigDispense QuantityRefillsLast FilledStart DateEnd DateStatus amLODIPine (Norvasc) 5 MG tablet Take by mouth Daily.Active aspirin 81 MG EC tablet Take 81 mg by mouth DailyActive atorvastatin (Lipitor) 40 MG tablet Take 40 mg by mouth in the morning.Active docusate sodium (Colace) 100 MG capsule Take 100 mg by mouth in the morning and 100 mg before bedtime.Active ergocalciferol (Vitamin D-2) 1.25 MG (09075 UT) capsule Take 1.25 mg by mouth 1 (one) time per weekActive psyllium (Metamucil) 58.6 % powder Take 3 g of fiber by mouth in the morning and 3 g of fiber before bedtime.Active hydroCHLOROthiazide (HYDRODiuril) 12.5 MG tablet Take 12.5 mg by mouth DailyActive metoprolol succinate XL (Toprol-XL) 25 MG 24 hr tablet Take by mouth. Do not crush or chew.Active potassium chloride ER (Micro-K) 10 MEQ ER capsule Take 10 mEq by mouth in the morning and 10 mEq before bedtime. Do not crush or chew. .Active tamsulosin (Flomax) 0.4 MG 24 hr capsule Take 0.4 mg by mouth DailyActive ciclopirox (Loprox) 0.77 % cream Indications:IntertrigoApply to armpits once a day/30 day supply 30 g 4Active Additional Information Patient not taking.Reported on 12/19/2024 nystatin (Mycostatin) 407045 UNIT/GM powder Indications:IntertrigoApply to armpits twice a day when needed, 30 day supply 30 g 11009/15/2023ctive latanoprost (Xalatan) 0.005 % ophthalmic solution instill 1 DROP IN BOTH EYES EVERY NIGHT07/24/2023ctive cephalexin (Keflex) 500 MG capsule Indications:Basal cell carcinoma of nasal tipTake 1 capsule, by mouth, bid, 10 days 20 capsule 11/25/2023ctive Additional Information Patient not taking.Reported on 12/19/2024 atorvastatin (Lipitor) 80 MG tablet Take 80 mg by mouth Daily11/24/2023ctive carbidopa-levodopa (Sinemet) 25-100 MG tablet Indications:Parkinson's disease without fluctuating manifestations, unspecified whether dyskinesia present (HCC)TAKE 1 & 1/2 (ONE AND ONE-HALF) TABLETS BY MOUTH FOUR TIMES DAILY 540 tablet ctive Multiple Vitamins-Minerals (OCUVITE PO) Take by mouthActive Active Problems ProblemNoted DateDiagnosed DateCerebrovascular uhjrwcos39/13/2024 Overview (09/26/2023): No further stroke-like symptoms. Patient again educated on signs and symptoms of stroke and advisedto seek emergent evaluation in the ED should any such s/s develop. He continues on ASA 81 mg daily and is no longer taking Plavix due to history of a fall with a subsequent subdural hematoma (this was per the recommendations of neurosurgery). Repeat of CT of the head on 03/26/2022 showed no evidenceof acute or remote intracranial hemorrhage. 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 He has been working with therapy andis doing well with this (currently PT 2 times a week). He is concerned in regards to his short-termmemory as he always has issues with 3 [...] compensatory memory techniques were discussed Carotid arterial xeztdct8109/26/2023 Overview (09/26/2023): Patient with a history of carotid disease and is status post surgery; doing well. - PLAN - Stoped plavix (see above) - Continue aspirin alone (see above) Xdulxp9709/26/2023 Overview (09/26/2023): Patient presents today with abnormal finger to nose testing bilaterally. He is currently on plavix as well as ASA and with his recent history of head injury x2 on a concrete floor stat imaging is indicated to rule out subdural hematoma. Plan: Stat CT head Encounters DateTypeDepartmentCare MihhNpagaebsfrs80/06/2025 1:00 PM EDTProcedure Visit [facility] [address] [place] [address] Boom Sexton DPM Dermatophytosis of nail (Primary Dx); Dystrophic nail; Pain around toenail, right foot; Pain around toenail, left foot12/19/2024amboo flowsheet [facility] [address] [place] [address] Boom Sexton DPM 12/19/20246388Ljvxta76/02/2025Travelfrom Last 3 Months Immunizations ImmunizationAdministration DatesNext DueInfluenza, High Dose Seasonal, Preservative Free12/16/2019,12/10/2018,12/23/2016Influenza, High-dose Seasonal, Quadrivalent, Preservative Free12/17/2022,12/17/2021,12/05/2020Influenza, Afwjinjbxzj81/01/2016,01/08/2015,12/20/2013Influenza, injectable, quadrivalent, preservative free12/09/2017Influenza, seasonal, pfhkoujjcd22/25/2020,12/27/2018, 12/14/2018Pfizer Purple Cap SARS-CoV-2 Hazdcpnbxax37/20/2021,04/05/2020 Pneumococcal Conjugate PCV 13003/18/2021,01/03/2020,01/15/2016,12/26/2015 Pneumococcal Conjugate PCV neumococcal Polysaccharide PPSV23 03/16/2010,03/16/20087916UODV-TbC-3, Rbhvlbqksgm33/22/2022Zoster, Recombinant 01/06/2019,11/08/2018,11/02/2018Zoster, live10/30/2010 Family History Medical HistoryRelationNameCommentsCancerBrotherThyroid diseaseDaughterStroke FatherHeart diseaseMotherCancerSisterMelanomaNeg HxRelationNameStatusComments BrotherDeceasedDaughterFatherDeceasedMotherDeceasedSister Social History Tobacco UseTypesPacks/DayYears UsedDateSmoking Tobacco: NeverSmokeless Tobacco: Never Tobacco Cessation:Counseling Given: Not Answered Alcohol UseStandard Drinks/WeekCommentsNever0 (1 standard drink = 0.6 oz pure alcohol)Caffeine intake: 1-2 cups per daySex and Gender InformationValueDate RecordedSex Assigned at BirthNot on fileLegal XaeVioe2705/28/2022 6:51 PM EDT Gender IdentityNot on fileSexual OrientationNot on file Last Filed Vital Signs Vital SignReadingTime TakenCommentsBlood Vnezerka251/6611 11:29 AM EST Votkc013601/25/2024 11:29 AM ESTTemperature--Respiratory Rate--Oxygen Saturation-- Inhaled Oxygen Concentration--Mkhdph20.9 kg (185 lb)12/19/2024 1:02 PM EDTHeight 180.3 cm (5' 11 )12/19/2024 1:02 PM EDTBody Mass Index25.810 1:02 PM EDT Plan of Treatment DateTypeDepartmentCare Team (Latest Contact Info)Mlzdeflljvw23/19/2026 2:15 PM ESTProcedure Visit [facility] [address] [place] [id number] Boom Sexton, DPM [address] [place] [address] Health MaintenanceDue DateLast DoneCommentsCOVID-19 Vaccine (2024- season) 5007/05/2021, 12/17/2020, 05/05/2020, Additional history exists Pneumococcal Vaccine: 65+ KcsazIeclirztg68/22/2022, 03/18/2021, 01/03/2020, Additional history existsInfluenza ZuqpelgTbsbcbaho15/18/2025, 02/12/2024, 12/17/2022, Additional history exists Insurance Care Teams Team MemberRelationshipSpecialtyStart DateEnd Date Wilder Kay DO [address] [place] [id number] PCP - GeneralInternal Medicine08/11/24
--- OUTSIDE RECORDS SUMMARY | 2025-02-25 12:02 | XMS_ITS | Clinical Summary ---
Author Organization [employer] [facility] Address [facility] [id number] [place] [address] Care Team Providers Care Squadron Worker Name Role Phone Wilder Kay DO Primary Care Provider [phone] Allergies No known active allergies Medications MedicationSigDispense QuantityRefillsLast FilledStart DateEnd DateStatus lisinopril (PRINIVIL,ZESTRIL) 5 mg tablet Take 5 mg by mouth daily.10/27/2011ctive metoprolol succinate XL (TOPROL-XL) 25 mg 24 hr tablet Take 1 tablet (25 mg total) by mouth in the morning.Active vit C/E/zinc/lutein/zeaxanthin (OCUVITE EYE HEALTH ORAL) Take 1 capsule by mouth daily. Active carbidopa-levodopa (SINEMET) 25-100 mg per tablet Take 0.5 tablets by mouth in the morning and 0.5 tablets at noon and 0.5 tablets in the evening and0.5 tablets before bedtime.Active aspirin 81 mg Take 1 tablet (81 mg total) by mouth in the morning.Active potassium bicarb-citric acid 20 mEq tablet, effervescent Take 1 tablet by mouth 2 (two) times a day.Active tamsulosin (FLOMAX) 0.4 mg capsule Take 1 capsule (0.4 mg total) by mouth in the morning.08/06/2020ctive atorvastatin (LIPITOR) 40 mg tablet Take 2 tablets (80 mg total) by mouth in the morning.Active hydroCHLOROthiazide (HYDRODIURIL) 12.5 mg tablet Take 1 tablet (12.5 mg total) by mouth daily.Active KLOR-CON/EF 25 mEq disintegrating tablet 10 mEq in the morning and 10 mEq before bedtime.06/05/2022Active amLODIPine (NORVASC) 5 mg tablet Take 1 tablet (5 mg total) by mouth in the morning.Active ergocalciferol (DRISDOL) 1,250 mcg (50,000 unit) capsule TAKE 1 CAPSULE BY MOUTH EVERY 2 (TWO) weeks3Active Active Problems ProblemNoted DateDiagnosed DateOcclusive disease, mqnaxhcy73/21/2024History of right-sided carotid tqovqgbalmamxa52/02/2020Bilateral carotid artery stenosis 01/12/2019 Immunizations ImmunizationAdministration DatesNext DueInfluenza High Dose Preservative Free IM 12/10/2018Zoster Vaccine Fsybzrkkxom96/20/2019 Social History Tobacco UseTypesPacks/DayYears UsedDateSmoking Tobacco: FormerSmokeless Tobacco: Never Tobacco Cessation:Counseling Given: Not Answered Alcohol UseStandard Drinks/WeekCommentsNot Currently0 (1 standard drink = 0.6 oz pure alcohol)ChildcareAnswerDate KtpshyleGchqwtxofLyprmsc11/12/2019Employment AnswerDate TcaepornXzkxkcjmbrTvcsnty59/12/2019Purpose - LifeAnswerDate Recorded Purpose and direction in asxmWvwrmyt46/11/2021ex and Gender InformationValue Date RecordedSex Assigned at BirthNot on fileLegal IoiTijb9810/19/2014 11:28 AM EDTGender IdentityNot on fileSexual OrientationNot on file Last Filed Vital Signs Vital SignReadingTime TakenCommentsBlood Miawquko839/7807 10:34 AM EDT Gfljp881910/05/2023 10:34 AM NRWWnilyxffrbp50.9 ??C (98.4 ??F)01/19/2019 11:28 AM ESTRespiratory Rtaj174101/19/2019 11:28 AM ESTOxygen Dhgixboryi30%09/06/2021 9:39 AM EDTInhaled Oxygen Concentration--Lcpsgb30.3 kg (188 lb)09/22/2022 10:26 AM BSIXykpjc750.8 cm (5' 10 )09/06/2021 9:39 AM EDTBody Mass Index26.98009/06/2021 9:39 AM EDT Plan of Treatment Health MaintenanceDue DateLast DoneCommentsDepression Ilfcasnjd06/06/1948 DTaP,Tdap and Td Vaccines (1 - Tdap)09/18/1954Fall Risk Jgawgnuyj72/06/2001RSV ( or age 60+ yrs) (1 - 1-dose 75+ series)09/18/2010Tobacco Screening 504COVID-19 Vaccine (2024- season)51, 07/05/2021, 12/17/2020, Additional history existsInfluenza Kswosep1411/14/2024 12/17/2022, 12/17/2021, 12/05/2020, Additional history existsZoster (Shingles) YwywhwfJwyrxcyto51/24/2019, 11/02/2018, 10/30/2010 Goals GoalPatient Goal TypeAssociated ProblemsRecent ProgressPatient-Stated?Author <enter goal here> Ashely Samuel RN Note: Evaluation of progress towards goal: home care with and self care.- Ashely Ramirez RN 01/13/19 10:58 AM Medical Devices ImplantedTypeAreaManufacturerDevice IdentifierShelf Expiration DateModel / Serial / LotPtch Vsc 8x.8cm [facility] [id number] - [id number] - [id number] Implanted:Qty: 1 on 01/17/2019 [facility]: WkebrigqPlKluixm01/28/2025E0.8P8 / [id number] / [id number]:XENOSURE BIOLOGIC PATCH RIGHT CAROTID ARTERY Insurance Advance Directives * Full Code (Latest Code Status on File) Date ActivatedDate VleliuyusxsVoxtxkdn62/30/2019 8:28 PM11 4:27 PM * Full Code Date ActivatedDate NabpqphlgbdAmcoqlpb39/30/2019 7:41 PM10 8:28 PM Care Teams Team MemberRelationshipSpecialtyStart DateEnd Date Wilder Kay DO PCP - GeneralInternal Medicine08/19/21
--- OUTSIDE RECORDS SUMMARY | 2025-02-25 12:03 | XMS_ITS | Clinical Summary ---
Author Organization [facility] Address [address] [place] [address] Phone Care Team Providers Care Data Officer Name Role Phone Rahul Wilder Luna Primary Care Provider [phone] Allergies No known active allergies Medications MedicationSigDispense QuantityRefillsLast FilledStart DateEnd DateStatus aspirin 81 mg EC tablet Take by mouth once daily.Active carbidopa-levodopa (Sinemet) 25-100 mg tablet Take 1 tablet by mouth 4 times a day.Active hydroCHLOROthiazide (HYDRODiuril) 12.5 mg tablet Take 1 tablet (12.5 mg) by mouth once daily.Active tamsulosin (Flomax) 0.4 mg 24 hr capsule Take by mouth once daily.08/06/2020ctive eye vitamin supplement (Ocuvite Eye Health Formula) capsule Take by mouth. As directedActive ergocalciferol (Vitamin D-2) 1.25 MG (12519 UT) capsule Take 1 capsule (1,250 mcg) by mouth 1 (one) time per week.Active atorvastatin (Lipitor) 80 mg tablet Take 1 tablet (80 mg) by mouth once daily.Active bran/gum/fib/ana/psyl/kelp/pec (FIBER 6 ORAL) Take by mouth.Active docusate sodium (COLACE ORAL) Take by mouth.Active Active Problems ProblemNoted DateDiagnosed DateBMI 26.0-26.9,adult06/08/2024bnormal EKG 01/23/2023Essential pplovyqsrsqz23/10/5583Jpewwliwdxrtue73/10/2023alpitations 01/23/2023TIA (transient ischemic attack)01/23/2023Ventricular tachycardia, kacolnrhkx05/10/2023ilateral carotid artery dhqoordz63/30/2019 Resolved Problems ProblemNoted DateDiagnosed DateResolved DateHistory of right-sided carotid oliijqkibvtsyj71 Immunizations ImmunizationAdministration DatesNext DueCOVID-19, mRNA, LNP-S, PF, 30 mcg/0.3 mL dose05/06/2020,04/06/2020Flu vaccine (IIV4), preservative free *Check age/dose* 12/09/2017Flu vaccine, quadrivalent, high-dose, preservative free, age 65y+ (FLUZONE)12/17/2022,12/17/2021,12/05/2020Flu vaccine, trivalent, preservative free, HIGH-DOSE, age 65y+ (Fluzone)02/12/2024,12/16/2019,12/10/2018,12/23/2016 Influenza, Pyndplscozs68/01/2018,12/14/2016,01/15/2016,01/08/2015,12/20/2013 Influenza, seasonal, /01/2019Pfizer Purple Cap DDUA-IjP-161/20/2021, 1Pneumococcal conjugate vaccine, 13-valent (PREVNAR 13)03/18/2021, 01/03/2020,01/15/2016,12/26/2015Pneumococcal conjugate vaccine, 20-valent (PREVNAR 20)2Pneumococcal polysaccharide vaccine, 23-valent, age 2 years and older (PNEUMOVAX 23)03/16/2010,03/16/2008Zoster vaccine, recombinant, adult (SHINGRIX)01/06/2019,11/08/2018Zoster, live10/30/2010 Social History Tobacco UseTypesPacks/DayYears UsedDateSmoking Tobacco: FormerCigarettes Smokeless Tobacco: Never Tobacco Cessation:Counseling Given: Not Answered Alcohol UseStandard Drinks/WeekCommentsNever0 (1 standard drink = 0.6 oz pure alcohol)Sex and Gender InformationValueDate RecordedSex Assigned at BirthNot on fileLegal MwjFptf76/26/2022 2:13 AM ESTGender IdentityNot on fileSexual OrientationNot on file Last Filed Vital Signs Vital SignReadingTime TakenCommentsBlood Vesfbnyy583/6003 3:28 PM EDT Orklh6169 3:28 PM EDTTemperature--Respiratory Rate--Oxygen Saturation-- Inhaled Oxygen Concentration--Rwqaxh86 kg (187 lb 6.4 oz)06/08/2024 3:28 PM EDT Arbfxh574.8 cm (5' 10 )06/08/2024 3:28 PM EDTBody Mass Index26.8906/08/2024 3:28 PM EDT Plan of Treatment DateTypeDepartmentCare Team (Latest Contact Info)Fjxnksgyble05/30/2026 10:40 AM ESTOffice Visit [facility] [address] [place] [address] Bi Willard MD [address] [place] [address] Health MaintenanceDue DateLast DoneCommentsLipid Panel1935Medicare Annual Wellness Visit (AWV)1935Diabetes Kqcejvowl57/06/1954DTaP/Tdap/Td Vaccines (1 - Tdap)09/18/1957RSV High Risk: (Elderly (60+) or Population) (1 - 1-dose 75+ series)09/18/2010Influenza Vaccine (#1)5104/13/2023, 12/17/2022, 12/17/2021, Additional history existsCOVID-19 Vaccine ( season)51, 07/05/2021, 05/05/2020, Additional history exists Zoster NfalkhfmPbowlpxxv67/24/2019, 11/08/2018, 10/30/2010Pneumococcal Vaccine Hivawuinz32/22/2022, 03/18/2021, 01/03/2020, Additional history existsHIB VaccinesAged OutNo longer eligible based on patient's age to complete this topic HPV VaccinesAged OutNo longer eligible based on patient's age to complete this topicHepatitis A VaccinesAged OutNo longer eligible based on patient's age to complete this topicHepatitis B VaccinesAged OutNo longer eligible based on patient's age to complete this topicIPV VaccinesAged OutNo longer eligible based on patient's age to complete this topicMeningococcal VaccineAged OutNo longer eligible based on patient's age to complete this topicRotavirus VaccinesAged Out No longer eligible based on patient's age to complete this topic Insurance Care Teams Team MemberRelationshipSpecialtyStart DateEnd Date Wilder Kay DO PCP - General04/09/21
[2025-02-25 12:24] LABS: Hematocrit 38.2 % (42.0-54.0); Hemoglobin 12.9 g/dL (14.0-18.0); Mean Corpuscular HGB Conc 33.8 g/dL (29.9-35.2); Mean Corpuscular Hemoglobin 29.9 pg (25.9-34.0); Mean Corpuscular Volume 88.6 fL (80.0-94.0); Platelet Count 167 10^3/uL (150-450); Red Blood Count 4.31 10^6/uL (4.70-6.10); White Blood Count 7.9 10^3/uL (4.0-11.0)
[2025-02-25 12:37] LABS: Albumin Level 3.6 g/dL (3.4-5.0); Anion Gap 10.5; Blood Urea Nitrogen 22.0 mg/dL (7.0-18.0); Calcium 9.2 mg/dL (8.5-10.1); Carbon Dioxide 29.3 mmol/L (21.0-32.0); Chloride 102 mmol/L (98-107); Estimated GFR (African America >60 (>=60 mL/min/1.73m^2); Estimated GFR (Non-African Ame 52 (>=60 mL/min/1.73m^2); Glucose 115 mg/dL (74-106); Magnesium 1.6 mg/dL (1.8-2.4); Potassium 3.8 mmol/L (3.5-5.1); Sodium 138 mmol/L (136-145); Uric Acid 8.1 mg/dL (3.5-7.2)
[2025-02-25 12:53] LABS: Iron 93.0 ug/dL (65.0-175.0); Percent Iron Saturation 31.1 %; Total Iron Binding Capacity 299.0 ug/dL (250.0-450.0)
[2025-02-25 13:16] LABS: Ferritin 179.0 ng/mL (26.0-388.0)
== END 2025-02-25 11:54 | disposition home or self-care (01) ==
LOC: LAB 11:58
PROVIDERS: PCP Internal Medicine; Visit Provider Internal Medicine
DX: N25.81 Secondary hyperparathyroidism of renal origin (principal); E79.0 Hyperuricemia without signs of inflammatory arthritis and tophaceous disease; N18.30 Chronic kidney disease, stage 3 unspecified; N18.9 Chronic kidney disease, unspecified; D63.1 Anemia in chronic kidney disease
CPT/HCPCS: 36415; 80069; 82306; 82570; 82728; 83540; 83550; 83735; 83970; 84156; 84550; 85027